=== PATIENT | female | born 1955 | race Caucasian/White ===

== ENCOUNTER 2022-11-28 12:54 | Outpatient (RCR) | payer MEDICARE, BC, SELFPAY | END 2022-12-19 16:55 | disposition home or self-care (01) | LOC: PT 12:54 | PROVIDERS: PCP Family Medicine | DX: Z98.890 Other specified postprocedural states (principal) | CPT/HCPCS: 97110; 97140; 97162 ==

== ENCOUNTER 2023-01-02 08:44 | Outpatient (OUT) | payer MEDICARE, BC, SELFPAY ==
--- NOTE | 2023-01-02 08:56 | XR_ITS ---
The [address] [address] Patient Name: RAHUL AGUILERA MRN: [id number] date: 1955 Sex: F Assigned Patient Location: [facility] Current Patient Location: [facility] Accession/Order Number: [id number] Exam Date: 01/02/2023 09:00 Report Date: 01/02/2023 09:53 At the request of: SHIRA DUONG Procedure: XR abdomen 1V EXAM: XR abdomen 1V HISTORY: Kidney Stones N20.0 COMPARISON: None. TECHNIQUE: AP view of the abdomen. FINDINGS: Nonobstructive bowel gas pattern is noted. There is a 3 mm calculus over the inferior aspect of the right kidney. The osseous structures are intact. XR/XR abdomen 1V IMPRESSION: Nonobstructive bowel gas pattern. Probable right nephrolithiasis. Electronically authenticated by: RENU LANIER Date: 01/02/2023 09:53
== END 2023-01-02 08:45 | disposition home or self-care (01) ==
LOC: RAD 08:48
PROVIDERS: PCP Family Medicine; Visit Provider Physician Assistant
DX: N20.0 Calculus of kidney (principal)
CPT/HCPCS: 74018

== ENCOUNTER 2023-03-11 12:51 | Outpatient (RCR) | payer MEDICARE, BC, SELFPAY | END 2023-04-02 15:52 | disposition home or self-care (01) | LOC: PT 12:51 | PROVIDERS: PCP Family Medicine; Visit Provider Physician Assistant | DX: M75.101 Unspecified rotator cuff tear or rupture of right shoulder, not specified as traumatic (principal); M75.21 Bicipital tendinitis, right shoulder; M25.511 Pain in right shoulder | CPT/HCPCS: 97110; 97140; 97162 ==

== ENCOUNTER 2023-04-07 08:29 | Outpatient (OUT) | payer MEDICARE, BC, SELFPAY ==
--- NOTE | 2023-04-07 08:35 | XR_ITS ---
The [address] [address] Patient Name: RAHUL AGUILERA MRN: [id number] date: 1955 Sex: F Assigned Patient Location: [facility] Current Patient Location: [facility] Accession/Order Number: [id number] Exam Date: 04/07/2023 08:40 Report Date: 04/07/2023 09:29 At the request of: SHIRA DUONG Procedure: XR abdomen 1V EXAMINATION: XR abdomen 1V HISTORY: Kidney Stone N20.0 COMPARISON: No relevant comparison available. FINDINGS: KIDNEY/URETER - RIGHT: No visible renal or ureteral calcifications. KIDNEY/URETER - LEFT: 7 mm calcification projects over the left L2 transverse process PELVIS: No visible ureteral calcifications. Any visible calcifications favor phleboliths. BOWEL: No abnormal dilation or deviation. BONES: No acute abnormality. Right hip arthroplasty. Moderate degenerative changes of the spine OTHER: Negative. No abnormal gaseous collections. XR/XR abdomen 1V IMPRESSION: Suspected left ureteropelvic junction or proximal ureteral 7 mm calcification Electronically authenticated by: ROMA BOUDREAUX Date: 04/07/2023 09:29
--- OUTSIDE RECORDS SUMMARY | 2023-04-07 08:41 | XMS_ITS | CCD ---
Author Name Unknown Address [address] [facility] [address] [place] [address] Organization [facility] Care Team Providers Care Search Engine Marketing Specialist Name Role Phone Roma Pritchard Unavailable Megan Asencio Unavailable Tanna Wilson Unavailable DO Roma Pritchard Primary Care Provider DO Roma Pritchard Attending Provider DO Roma Pritchard Primary Care Provider DO Roma Pritchard Attending Provider MD Orlando Vicente Attending Provider LEORA Wilson Attending Provider MD Ar Herman II Attending Provider Ar Herman II Unavailable FRANCHESKA, DR BRANDON Primary Care Unavailable RABIA LICONA Admitting Unavailable FORREST, DR PAIGE Carmichael Consulting Unavailable RABIA LICONA Attending Unavailable RABIA LICONA Consulting Unavailable FRANCHESKA, DR BRANDON Primary Care Unavailable RABIA LICONA Admitting Unavailable ZISISSY, DR PAIGE Carmichael Consulting Unavailable RABIA LICONA Attending Unavailable RABIA LICONA Consulting Unavailable FRANCHESKA, DR BRANDON Primary Care Unavailable RABIA LICONA Attending Unavailable RABIA LICONA Admitting Unavailable FORREST, DR PAIGE Carmichael Consulting Unavailable RABIA LICONA Consulting Unavailable FRANCHESKA, DR BRANDON Attending Unavailable FRANCHESKA, DR BRANDON Admitting Unavailable FRANCHESKA, DR BRANDON Primary Care Unavailable FRANCHESKA, DR BRANDON Primary Care Unavailable RABIA LICONA Admitting Unavailable RABIA LICONA Attending Unavailable FRANCHESKA, DR BRANDON Primary Care Unavailable FRANCHESKA, DR BRANDON Consulting Unavailable FRANCHESKA, DR BRANDON Attending Unavailable GIRVIN, DR BRANDON Admitting Unavailable ZIEBER, DR PAIGE Carmichael Consulting Unavailable GIRVIN, DR BRANDON Consulting Unavailable GIRVIN, DR BRANDON Admitting Unavailable GIRVIN, DR BRANDON Attending Unavailable GIRVIN, DR BRANDON Primary Care Unavailable ZIEBER, DR PAIGE Carmichael Consulting Unavailable GIRVIN, DR BRANDON Consulting Unavailable GIRVIN, DR BRANDON Attending Unavailable GIRVIN, DR BRANDON Admitting Unavailable GIRVIN, DR BRANDON Primary Care Unavailable ZIEBER, DR PAIGE Carmichael Consulting Unavailable WEST, DR BRANDON V Consulting Unavailable MARIANA DUONG Attending Unavailable GIRCARMEN, DR BRANDON Primary Care Unavailable AD, MARIANA Admitting Unavailable ADMARIANA ANDRADE Consulting Unavailable DO Roma Pritchard Primary Care Provider DO Roma Pritchard Attending Provider [phone] MD Ar Herman II Attending Provider DO Roma Pritchard Primary Care Provider DO Roma Pritchard Attending Provider Roma Pritchard Primary Care Physician MARIANA DUONG Attending Unavailable MARIANA DUONG Attending Unavailable DO Roma Pritchard Primary Care Provider [phone] MD Ar Herman II Attending Provider DO Roma Pritchard Attending Provider Self, Referral Attending Provider Unavailable BLAYNE MORALES Attending Unavailable Colby Shaffer Unavailable DO Roma Pritchard Primary Care Provider MD Ar Herman II Attending Provider [phone] DO Colby Shaffer Attending Provider LEORA Wilson Attending Provider [phone] DO Roma Pritchard Primary Care Provider Roma Pritchard Primary Care Unavailable Roma Pritchard Attending Unavailable Roma Pritchard Admitting Unavailable Roma Pritchard Primary Care Unavailable Ar Herman II Attending Unavailonel Herman II, Ar Venegas Admitting Unavailonel Herman II, Ar Venegas Attending Unavailabl e Roma Pritchard Primary Care Unavailable Ar Herman II Admitting Unavailabl e Ar Herman II Admitting Unavailonel Herman II, Ar Venegas Attending Unavailonel e Roma Pritchard Primary Care Unavailable Roma Pritchard Primary Care Unavailable Roma Pritchard Attending Unavailable Roma Pritchard Admitting Unavailable Ar Herman II Attending Unavailonel Herman II, Ar Venegas Admitting UnavailRoma Dominguez Primary Care Unavailable Roma Pritchard Primary Care Unavailable Self, Referral Admitting Unavailable Self, Referral Attending Unavailable Roma Pritchard Primary Care Unavailable Colby Shaffer Admitting Unavailable Colby Shaffer Attending Unavailable Roma Pritchard Primary Care Unavailable Tanna Wilson Admitting Unavailable Tanna Wilson Attending Unavailable Roma Pritchard Primary Care Unavailable Francheska, Roma Attending Unavailable Roma Pritchard Admitting Unavailable Medications Current Medications Medication Drug Class(es) Dates Sig (Normalized) Sig (Original) ALPRAZolam 0.5 mg oral tablet (20 sources) Benzodiazepine Start: 06-26-2022 take 1 tablet by mouth every twelve hours Xanax 0.5 MG 1 tablet Orally Twice a day June, Active Start: 01-24-2020 Xanax Oral, As Directed, Refills(s) 0 Start Date: 01/24/20 Status: Ordered Start: 12-25-2019 take 0.5 mg by mouth every six hours Alprazolam Active 0.5 MG PO Q6H December 24, 2019 11:00pm Start: 12-04-2017 take 1 tablet by corey th every twelve hours Xanax 0.5 MG 1 tablet Orally Twice a day Nov, Active Ascorbic Acid (20 sources) Vitamin C Start: 01-06-2023 Vitamin C Angie y Start Date: 01/06/23 Status: Ordered Start: 06-27-2019 Vitamin C 500 MG 1 tablet Orally Thu-ThuJune, Active Start: 06-27-2019 take 1 tablet by corey th every other day Vitamin C 500 MG 1 tablet Orally every other day June, Active atorvastatin 20 mg oral tablet (20 sources) HMG-CoA Reductase Inhibitor Start: 12-25-2019 take 20 mg by mouth at bedtime Atorvastatin Active 20 MG PO Bedtime December 24, 2019 11:00pm 12 hr buPROPion hydrochloride 100 mg extended release oral tablet (20 sources) Aminoketone Start: 12-31-2022 take 1 tablet by mouth every twenty-four hours Wellbutrin SR 100 MG 1 tablet in the morning Orally Once a day Dec, Active Start: 12-27-2019 take 150 mg by mouth once daily in the morning Bupropion Hcl Active 150 MG PO Every morning December 27, 2019 12:00am Start: 12-25-2019 End: 12-27-2019 take 300 mg by mouth once daily Bupropion Hcl Disconti nued 300 MG PO Daily December 24, 2019 11:00pm December 27, 2019 9:40am Calcium + D3 600-800 MG-UNIT (1 source) take 600-800 tablets by mouth once daily Calcium + D3 600-800 MG-UNIT 1 tablet with a meal Orally Once a day Active calcium carbonate 1500 mg / cholecalciferol 800 unt oral tablet (15 sources) Vitamin D take 1 tablet by mouth every twenty-four hours Caltrate 600+D3 600-800 MG-UNIT 1 tablet with a meal Orally Once a day Active take 600-800 tablets by mouth on ce daily Caltrate 600+D3 600-800 MG-UNIT 1 tablet with a meal Orally Once a day Active Calcium Carbonate-Vit D3-Min (7 sources) Start: 10-17-2022 take 1 tablet by mouth once daily in the evening Calcium Carbonate-Vit D3-Min Active 1 TAB PO Every evening October 16, 2022 11:00pm Start: 10-17-2022 take 1 tablet by corey th once daily in the evening Calcium Carbonate-Vit D3-Min Active 1 TAB PO Every evening October 17, 2022 12:00am Calcium Citrate / Vitamin D (1 source) Start: 01-06-2023 calcium-vitami n D Daily Start Date: 01/06/23 Status: Ordered cholecalciferol 0.05 mg oral capsule (17 sources) Vitamin D Start: 10-17-2022 take 1 capsule by mouth twice daily Cholecalciferol (Vitamin D3) (Vitamin D3) 50 mcg (2,000 unit) Capsule Active 50 MCG PO Twice daily October 16, 2022 11:00pm Start: 09-18-2022 Cholecalcifero l 25 MCG (1000 UT) as directed Orally Once a day 5k daily Aug, Not-Taking Start: 09-18-2022 Cholecalcifero l 25 MCG (1000 UT) as directed Orally Once a day 5k daily Aug, Active Start: 09-18-2022 take 5 capsules by m out once daily Cholecalciferol 25 MCG (1000 UT) 5 capsules Orally Once a day for 30 days 5k daily Aug, Active take 2 capsules by m outh once daily, then take 1 capsule by mouth once daily Vitamin D 50 MCG (2000 UT) 2 capsules qd in the winter Orally and take 1 capsule qd in the summer Active CPAP Machine (20 sources) CPAP Machine Act rebecca esomeprazole 40 mg delayed release oral capsule (20 sources) Proton Pump Inhibitor Start: 12-25-2019 take 40 mg by mouth once daily Esomeprazole Magnesium Active 40 MG PO Daily December 24, 2019 11:00pm take 1 capsule by mo uth once daily as needed NexIUM 40 1 capsule Orally Once a day Not-Taking/PRN take 1 capsule by mouth once madeleine ly NexIUM 40 1 capsule Orally Once a day Not-Taking take 1 capsule by mouth once madeleine ly NexIUM 40 1 capsule Orally Once a day Active take 1 capsule by mouth once madeleine ly NexIUM 40 1 capsule Orally Once a day for 90 days Active take 1 capsule by mo ut every other day NexIUM 40 1 capsule Orally qod for 90 da ys Active take 1 capsule by mo ut every other day NexIUM 40 1 capsule Orally qod Active take 1 capsule by mo ut every other day NexIUM 40 1 capsule Orally qod Not-Takin g ferrous sulfate 324 mg delayed release oral tablet (20 sources) Start: 10-17-2022 take 324 mg by mouth five times weekly Ferrous Sulfate Active 324 MG PO Daily October 16, 2022 11:00pm takes 5 days per week Start: 09-18-2022 take 1 tablet by corey every other day Iron 325 (65 Fe) MG 1 tablet Orally qod Aug, Active Start: 09-18-2022 take 1 tablet by corey every eight hours Iron 325 (65 Fe) MG 1 tablet Orally Three Times a Day Aug, Not-Taking Start: 05-31-2019 Ferrous Sulfat e 325 (65 Fe) MG 1 tablet Orally five days a week May, Active Start: 05-31-2019 Ferrous Sulfat e 325 (65 Fe) MG 1 tablet Orally five days a week May, Active Start: 05-31-2019 take 1 tablet by corey every other day Ferrous Sulfate 325 (65 Fe) MG 1 tablet Orally every other day May, Active Start: 05-31-2019 take 1 tablet by corey th every twenty-four hours Ferrous Sulfate 325 (65 Fe) MG 1 tablet Orally Once a day May, Active Start: 05-31-2019 take 1 tablet by mouth once da rica Ferrous Sulfate 325 (65 Fe) MG 1 tablet Orally Once a day May, Active hydroCHLOROthiazide 25 mg oral tablet (20 sources) Thiazide Diuretic Start: 12-25-2019 take 25 mg by mouth once daily Hydrochlorothiazide Active 25 MG PO Daily December 24, 2019 11:00pm Iron Chews (1 source) Start: 01-06-2023 take 1 mg by mouth once daily Iron Chews mg, Oral, Daily Start Date: 01/06/23 Status: Ordered losartan potassium 100 mg oral tablet (20 sources) Angiotensin 2 Receptor Berry Start: 12-25-2019 take 100 mg by mouth once daily in the morning Losartan Active 100 MG PO Every morning December 24, 2019 11:00pm metroNIDAZOLE 7.5 mg/ml topical lotion (7 sources) Nitroimidazole Antimicrobial Start: 10-17-2022 Metronidazole Active 1 APPLIC TOPICAL Daily October 16, 2022 11:00pm Miacalcin 200 UNIT/ACT (20 sources) Start: 02-20-2017 Miacalcin 200 UNIT/ACT 1 spray in one nostril Nasally qd alternating nostrils quantity sufficient for 90 days Jan, Active Start: 02-20-2017 Miacalcin 200 UNIT/ACT 1 spray in one nostril Nasally qd alternating nostrils for 90 days quantity sufficient for 90 days Jan, Active Start: 02-20-2017 Miacalcin 200 UNIT/ACT 1 spray in one nostril Nasally qd alternating nostrils Jan, Active Start: 02-20-2017 Start: 02-20-2017 Miacalcin 200 UNIT/ACT 1 spray in one nostril Nasally qd alternating nostrils for 30 day(s) Jan, Active Miacalcin 200 UN IT/ACT 1 spray in one nostril Nasally qd alternating nostrils for 90 days Not-Taking/PRN Miacalcin 200 UN IT/ACT 1 spray in one nostril Nasally qd alternating nostrils for 90 days Not-Taking Miacalcin 200 UN IT/ACT 1 spray in one nostril Nasally qd alternating nostrils for 90 days Active Multivitamin preparation (3 sources) Multivitamin Act rebecca omeprazole 20 mg delayed release oral capsule (5 sources) Proton Pump Inhibitor Start: 11-04-2022 take 20 mg by mouth once daily Omeprazole Active 20 MG PO Daily November 03, 2022 11:00pm 24 hr oxybutynin chloride 5 mg extended release oral tablet (20 sources) Cholinergic Muscarinic Antagonist Start: 05-21-2020 take 1 mg by mouth once daily oxybutynin 5 mg ER Tab mg tab(s), Oral, Daily, Refills(s) 0 Start Date: 01/02/22 Status: Ordered Start: 05-21-2020 take 1 tablet by corey th once daily Ditropan XL 5 MG 1 tablet Orally Once a day Apr, Not-Taking salmon calcitonin 200 unt/actuat nasal spray (20 sources) Calcitonin Start: 10-17-2022 Calcitonin ([place]) (Miacalcin) 200 unit/actuation [place],Non-Aerosol Active 1 SPRAY INTRANASAL (ALT) Daily October 16, 2022 11:00pm Calcitonin ([place]) 200/ACT USE 1 SPRAY IN ONE NOSTRIL DAILY (ALTERNATING NOSTRILS) for 90 Not-Taking/PRN Calcitonin ([place]) 200/ACT USE 1 SPRAY IN ONE NOSTRIL DAILY (ALTERNATING NOSTRILS) for 90 Not-Taking Calcitonin ([place]) 200/ACT USE 1 SPRAY IN ONE NOSTRIL DAILY (ALTERNATING NOSTRILS) for 90 Active Turmeric extract (15 sources) Start: 01-06-2023 Turmeric Oral, Daily Start Date: 01/06/23 Status: Ordered Turmeric Active vitamin B12 (5 sources) Vitamin B12 Start: 01-06-[address] art Date: 01/06/23 Status: Ordered Start: 05-31-2019 Vitamin B12 10 00 MCG 1 tablet Orally Thursday - May, Active Vitamin B12 1000 MCG (20 sources) Start: 05-31-2019 Vitamin B12 10 00 MCG 1 tablet Orally Thursday - May, Active Start: 05-31-2019 Start: 05-31-2019 Vitamin B12 10 00 MCG 1 tablet Orally 5 days a week May, Active Vitamin D (1 source) Start: 01-06-2023 Vitamin D Inte rnational_Unit, Oral, BID Start Date: 01/06/23 Status: Ordered Vitamin D 4000 Unit (20 sources) take 1 capsule by mouth once daily take 1 capsule by mouth once madeleine ly Vitamin D 4000 Unit 1 capsule Orally qd Active Completed/Discontinued Medications Medication Drug Class(es) Dates Sig (Normalized) Sig (Original) acetaminophen 500 mg oral tablet (6 sources) Start: 10-23-2022 take 2 tablets by mouth every eight hours for pain Acetaminophen 500 MG 2 tablets for pain Orally every 8 hrs for 30 days Med to Bed Upon Discharge DOS: 11/04/2022 Sep, Not-Taking amoxicillin 500 mg oral capsule (13 sources) Penicillin-class Antibacterial Start: 12-17-2022 Amoxicillin 500 MG 2 grams 1hr before dental procedure Orally as directed for 1 Nov, Not-Taking/PRN Start: 09-17-2021 take 1 tablet by corey th every twelve hours Amoxicillin 875 MG 1 tablet Orally Twice a day for 14 days Aug, Not-Taking aspirin 81 mg delayed release oral tablet (6 sources) Platelet Aggregation Inhibitor, Nonsteroidal Anti-inflammatory Drug Start: 10-23-2022 take 1 tablet by mouth every twelve hours Aspirin 81 81 MG 1 tablet Orally Twice a day for 35 days Med to Bed Upon Discharge DOS: 11/04/2022 Sep, Not-Taking Start: 10-23-2022 take 1 tablet by corey th twice daily Aspirin 81 81 MG 1 tablet Orally Twice a day for 35 days Med to Bed Upon Discharge DOS: 11/04/2022 Sep, Not-Taking Caltrate 600+D3 600-800 MG-UNIT (15 sources) take 600-800 tablets by mouth once daily Caltrate 600+D3 600-800 MG-UNIT 1 tablet with a meal Orally Once a day Not-Taking take 600-800 tablets by mouth on ce daily Caltrate 600+D3 600-800 MG-UNIT 1 tablet with a meal Orally Once a day Active cefadroxil 500 mg oral capsule (6 sources) Cephalosporin Antibacterial Start: 10-23-2022 take 1 capsule by mouth every twelve hours Cefadroxil 500 MG 1 tablet Orally every 12 hrs for 7 days Med to Bed Upon Discharge DOS: 11/04/2022 Sep, Not-Taking cefdinir 300 mg oral capsule (12 sources) Cephalosporin Antibacterial Start: 12-27-2019 End: 10-17-2022 take 300 mg by mouth twice daily Cefdinir Discontinued 300 MG PO Twice daily 07 26December 27, 2019 12:00am October 17, 2022 10:18am celecoxib 200 mg oral capsule (20 sources) Nonsteroidal Anti-inflammatory Drug Start: 01-24-2020 take 1 capsule by mouth every twelve hours Celecoxib 200 MG 1 capsule with food Orally Twice a day for 30 days Med to Bed Upon Discharge DOS: 11/04/2022 Sep, Not-Taking Start: 06-27-2019 take 200 mg by mouth once daily before lunch Celecoxib Active 200 MG PO Daily before lunch December 24, 2019 11:00pm Co-Enzyme Q-10 100 mg (20 sources) Start: 05-15-2014 take 1 capsule by mouth once daily Co-Enzyme Q-10 100 mg 1 capsule with a meal Orally Once a day Apr, Not-Taking Start: 05-15-2014 Start: 05-15-2014 take 1 capsule by mouth once d aily Co-Enzyme Q-10 100 mg 1 capsule with a meal Orally Once a day Apr, Active docusate sodium 50 mg / sennosides, assisted 8.6 mg oral tablet (6 sources) Start: 10-23-2022 take 2 tablets by mouth every twenty-four hours Senokot S 8.6-50 MG 2 tablets Orally Once a day for 30 days Med to Bed Upon Discharge DOS: 11/04/2022 Sep, Not-Taking meloxicam 15 mg oral tablet (4 sources) Nonsteroidal Anti-inflammatory Drug Start: 03-04-2023 take 1 tablet by mouth every twenty-four hours Meloxicam 15 MG 1 tablet Orally Once a day for 30 days prn Feb, Not-Taking/PRN morphine sulfate 15 mg extended release oral tablet (6 sources) Opioid Agonist Start: 10-23-2022 take 1 tablet by mouth every twelve hours for pain Morphine Sulfate ER 15 MG 1 tablet for breakthrough pain only Orally every 12 hrs for 5 days Med to Bed Upon Discharge DOS: 11/04/2022 Sep, Not-Taking ondansetron 8 mg oral tablet (6 sources) Serotonin-3 Receptor Antagonist Start: 10-23-2022 take 1 tablet by mouth three times daily as needed for nausea Ondansetron HCl 8 MG 1 tablet as needed for nausea Orally Three times a day for 10 days Med to Bed Upon Discharge DOS: 11/04/2022 Sep, Not-Taking oxyCODONE hydrochloride 5 mg oral tablet (6 sources) Opioid Agonist Start: 10-23-2022 take 1 tablet by mouth every four hours as needed for pain oxyCODONE HCl 5 MG 1 tablet as needed for pain Orally every 4 hrs for 10 days Med to Bed Upon Discharge DOS: 11/04/2022 Sep, Not-Taking pantoprazole 20 mg delayed release oral tablet (6 sources) Proton Pump Inhibitor Start: 10-23-2022 take 1 tablet by mouth every twenty-four hours Protonix 20 MG 1 tablet Orally Once a day for 35 days Med to Bed Upon Discharge DOS: 11/04/2022 Sep, Not-Taking polyethylene glycol 3350 85100 mg powder for oral solution (6 sources) Osmotic Laxative Start: 10-23-2022 MiraLax 17 GM 1 packet mixed with 8 ounces of fluid Orally Once a day for 7 days Med to Bed Upon Discharge DOS: 11/04/2022 Sep, Not-Taking tiZANidine 4 mg oral tablet (15 sources) Central alpha-2 Adrenergic Agonist Start: 12-25-2019 End: 10-17-2022 take 4 mg by mouth every six hours Tizanidine Discontinued 4 MG PO Q6H December 24, 2019 11:00pm October 17, 2022 10:18am Start: 05-31-2019 traMADol hydrochloride 50 mg oral tablet (6 sources) Opioid Agonist Start: 10-23-2022 take 1 tablet by mouth every six hours as needed for pain traMADol HCl 50 MG 1 tablet as needed for pain Orally every 6 hrs for 10 days Med to Bed Upon Discharge DOS: 11/04/2022 Sep, Not-Taking triamcinolone acetonide 40 mg/ml injectable suspension (20 sources) Corticosteroid Start: 03-03-2023 Kenalog-40 Feb, 40 mg Start: 03-05-2022 Kenalog-40 Feb, 120 mg Start: 04-19-2021 Kenalog -40 mg Mar, 20 mg Start: 07-11-2020 Kenalog -40 mg June, 20 mg Start: 01-12-2019 Kenalog -40 mg Dec, 40 mg valACYclovir 1000 mg oral tablet (20 sources) Herpesvirus Nucleoside Analog DNA Polymerase Inhibitor, Herpes Simplex Virus Nucleoside Analog DNA Polymerase Inhibitor, Herpes Zoster Virus Nucleoside Analog DNA Polymerase Inhibitor Start: 12-25-2019 End: 12-25-2019 Valacyclovir Discontinued TABLET December 24, 2019 11:00pm December 25, 2019 7:08pm valACYclovir HCl 1 GM TAKE 2 TABLETS BY MOUTH AT ONSET OF SYMPTOMS, THEN TAKE 2 TABLETS TWELVE HOURS LATER. for 1 prn Not-Taking/PRN valACYclovir HCl 1 GM TAKE 2 TABLETS BY MOUTH AT ONSET OF SYMPTOMS, THEN TAKE 2 TABLETS TWELVE HOURS LATER. for 1 prn Active Vitamin C 500 MG (9 sources) Start: 09-18-2022 take 1 capsule by mo ut once daily Vitamin C 500 MG 1 capsule Orally Once a day Aug, Not-Taking Start: 09-18-2022 take 1 capsule by mouth once d aily Vitamin C 500 MG 1 capsule Orally Once a day Aug, Active Start: 09-18-2022 take 1 capsule by mouth once d aily Vitamin C 500 MG 1 capsule Orally Once a day for 30 days Aug, Active Problems Active Problems Problem Classification Problem Date Documented Da te Episodic/Chronic Abdominal pain (20 sources) Unspecified abdominal pain; Translations: [Right flank pain] Onset: 1 Resolved: 1 Episodic Anxiety disorders (20 sources) Anxiety; Translations: [Anxiety disorder, unspecified] Onset: 1 Resolved: 2 Chronic Calculus of urinary tract (20 sources) Kidney stone; Translations: [Calculus of kidney] Onset: 1 Resolved: 1 Episodic Deficiency and other anemia (6 sources) Anemia, unspecified; Translations: [Anemia D64.9] Onset: 1 Resolved: 2 Episodic Diabetes mellitus without complication (4 sources) Hyperglycemia, unspecified Onset: 2 Resolved: 2 Episodic Disorders of lipid metabolism (20 sources) Hyperlipidemia; Translations: [Hyperlipidemia, unspecified] Onset: 2 Resolved: 2 Chronic Esophageal disorders (20 sources) Gastroesophageal reflux disease; Translations: [Gastro-esophageal reflux disease without esophagitis] Onset: 2 Resolved: 2 Chronic Essential hypertension (20 sources) Hypertensive disorder; Translations: [Essential (primary) hypertension] Onset: 2 Resolved: 2 Chronic Menopausal disorders (20 sources) Menopausal flushing; Translations: [Menopausal and female climacteric states] Chronic Nonspecific chest pain (1 source) Chest pain, unspecified Episodic Nutritional deficiencies (20 sources) Vitamin D deficiency; Translations: [Vitamin D deficiency, unspecified] Onset: 2 Resolved: 2 Chronic Nutritional deficiencies (7 sources) Deficiency of other specified B group vitamins; Translations: [Vitamin B12 deficiency E53.8] Onset: 1 Resolved: 2 Episodic Osteoarthritis (20 sources) Arthritis; Translations: [Unspecified osteoarthritis, unspecified site] Onset: 1 Resolved: 2 Chronic Osteoporosis (18 sources) Osteoporosis; Translations: [Other osteoporosis without current pathological fracture] Onset: 3 Chronic Other aftercare (9 sources) Patient encounter status; Translations: [Aftercare following joint replacement surgery] Chronic Other aftercare (2 sources) Aftercare following joint replacement surgery Chronic Other aftercare (5 sources) 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y; Translations: [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y] Onset: 2 Resolved: 2 Episodic Other connective tissue disease (9 sources) Hip joint prosthesis present; Translations: [Presence of right artificial hip joint] Chronic Other connective tissue disease (9 sources) History of total hip arthroplasty; Translations: [Presence of right artificial hip joint] Chronic Other connective tissue disease (6 sources) Presence of right artificial hip joint; Translations: [Presence of right artificial hip joint] Onset: 3 Chronic Other connective tissue disease (7 sources) Pain in right foot; Translations: [PAIN IN RIGHT FOOT] Onset: 2 Resolved: 2 Episodic Other connective tissue disease (4 sources) Right rotator cuff syndrome; Translations: [Unspecified rotator cuff tear or rupture of right shoulder, not specified as traumatic] Episodic Other connective tissue disease (2 sources) Unspecified rotator cuff tear or rupture of right shoulder, not specified as traumatic Episodic Other connective tissue disease (1 source) Bicipital tendinitis, right shoulder Episodic Other connective tissue disease (1 source) Cramp and spasm Episodic Other diseases of bladder and urethra (20 sources) Overactive bladder; Translations: [Other specified disorders of bladder] Chronic Other diseases of kidney and ureters (5 sources) Hydronephrosis; Translations: [Hydronephrosis with renal and ureteral calculous obstruction] 12-25-2019 Episodic Other diseases of kidney and ureters (7 sources) Hydronephrosis with renal and ureteral calculous obstruction; Translations: [Hydronephrosis with urinary obstruction due to ureteral calculus] 12-25-2019 Episodic Other gastrointestinal disorders (20 sources) Constipation; Translations: [Constipation, unspecified] Episodic Other gastrointestinal disorders (20 sources) Dysphagia; Translations: [Dysphagia, unspecified] Episodic Other gastrointestinal disorders (6 sources) Dysphagia, unspecified; Translations: [DYSPHAGIA UNSPECIFIED] Onset: 3 Episodic Other liver diseases (20 sources) Steatosis of liver; Translations: [Fatty (change of) liver, not elsewhere classified] Chronic Other liver diseases (1 source) Fatty (change of) liver, not elsewhere classified Onset: 2 Resolved: 2 Chronic Other lower respiratory disease (20 sources) Multiple nodules of lung; Translations: [Other nonspecific abnormal finding of lung field] Episodic Other lower respiratory disease (4 sources) Other nonspecific abnormal finding of lung field Episodic Other non-traumatic joint disorders (2 sources) Pain in right hip Onset: 2 Resolved: 2 Episodic Other non-traumatic joint disorders (5 sources) Pain in unspecified hip; Translations: [PAIN IN UNSPECIFIED HIP] Onset: 3 Episodic Other non-traumatic joint disorders (2 sources) Pain in right shoulder Episodic Other nutritional; endocrine; and metabolic disorders (20 sources) Weight decreased; Translations: [Abnormal weight loss] Episodic Other nutritional; endocrine; and metabolic disorders (4 sources) Abnormal weight loss; Translations: [Weight loss R63.4] Onset: 1 Resolved: 2 Episodic Other nutritional; endocrine; and metabolic disorders (1 source) Body mass index (BMI) 26.0-26.9, adult Episodic Other screening for suspected conditions (not mental disorders or infectious disease) (2 sources) Encounter for screening for osteoporosis; Translations: [Abnormal findings on diagnostic imaging of other parts of musculoskeletal system] Episodic Residual codes; unclassified (20 sources) Hypoxia; 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 Residual codes; unclassified (20 sources) Obstructive sleep apnea syndrome; Translations: [Obstructive sleep apnea (adult) (pediatric)] Chronic Residual codes; unclassified (3 sources) Obstructive sleep apnea (adult) (pediatric) Onset: 2 Resolved: 2 Chronic Residual codes; unclassified (2 sources) Sleep apnea, unspecified Onset: 2 Resolved: 2 Chronic Residual codes; unclassified (1 source) Obstructive sleep apnea (adult)(pediatric); Translations: [Obstructive sleep apnea (adult) (pediatric)] Onset: 4 Chronic Residual codes; unclassified (20 sources) Amnesia; Translations: [Other amnesia] Episodic Spondylosis; intervertebral disc disorders; other back problems (7 sources) Cervicalgia; Translations: [CERVICALGIA] Onset: 3 Episodic Sprains and strains (1 source) Strain of muscle, fascia and tendon of lower back, initial encounter Episodic Thyroid disorders (20 sources) Thyroid nodule; Translations: [Nontoxic single thyroid nodule] Chronic Unclassified (1 source) Pain in right shoulder; Translations: [Pain in right shoulder] Onset: 4 Unclassified (1 source) Encounter for screening mammogram for malignant neoplasm of breast; Translations: [Encounter for screening mammogram for malignant neoplasm of breast] Onset: 3 Unclassified (1 source) Aftercare following joint replacement surgery; Translations: [Aftercare following joint replacement surgery] Onset: 3 Unclassified (1 source) Encounter for preprocedural laboratory examination; Translations: [Encounter for preprocedural laboratory examination] Onset: 3 Unclassified (1 source) Unilateral primary osteoarthritis, right hip; Translations: [Unilateral primary osteoarthritis, right hip] Onset: 3 Past or Other Problems Problem Classification Problem Date Documented Da te Episodic/Chronic Crushing injury or internal injury (4 sources) Crushing injury of right foot, subsequent encounter; Translations: [CRUSHING INJURY RIGHT FOOT SUBSQT] Onset: 10-29-2021 Episodic Fracture of lower limb (10 sources) Displaced fracture of second metatarsal bone, right foot, subsequent encounter for fracture with routine healing; Translations: [Nondisplaced fracture of second metatarsal bone, right foot, initial encounter for closed fracture] Onset: 08-09-2021 Episodic Genitourinary symptoms and ill-defined conditions (2 sources) Hematuria, unspecified; Translations: [Nocturia] Onset: 12-18-2020 Resolved: 03-22-2021 Episodic Headache; including migraine (1 source) Headache; including migraine Other bone disease and musculoskeletal deformities (3 sources) Other specified disorders of bone density and structure, unspecified site Onset: 03-22-2021 Resolved: 06-26-2021 Episodic Other connective tissue disease (1 source) Trigger finger, right ring finger Onset: 04-19-2021 Resolved: 04-19-2021 Episodic Other connective tissue disease (1 source) Pain in right hand Onset: 04-19-2021 Resolved: 04-19-2021 Episodic Other gastrointestinal disorders (1 source) Constipation, unspecified Onset: 12-28-2020 Resolved: 12-28-2020 Episodic Other injuries and conditions due to external causes (1 source) Other injury of unspecified body region, initial encounter Onset: 10-02-2021 Resolved: 10-02-2021 Episodic Results Test Name Value Interpretation Reference Range Facility A1C with Estimated Average Xavier sanchez 03-25-2023 Glucose [Mass/Vol] 114 mg/dL Normal [facility] Comment on above: Result Comment: PERF ORMED BY: [place] [address] PATHOLOGIST OIL [employer] UNIT OPERATOR CIRA GRAHAM M.D. Performed By: #### A 1C [facility] eA #### [place] [address] [place] #### NICOTINE #### [facility] , HbA1c (Bld) [Mass fraction] 5.6 % Normal 4.3-5.6 [facility] Comment on above: Result Comment: Incr eased risk for diabetes: 5.7 - 6.4 diabetes: >6.4 glycemic control for adults with diabetes: <7.0 Performed By: #### A 1C WTH #### [facility] [address] #### NICOTINE #### [facility] , Alanine aminotransferase [En zymatic activity/volume] in Serum or PlasmaOrdered By: Roma Pritchard on 03-25-2023 ALT [Catalytic activity/Vol] 17 U/L 7-52 [facility] Albumin [Mass/volume] in Ser um or Plasma by Bromocresol green (BCG) dye binding methoOrdered By: Roma Pritchard on 03-25-2023 Albumin BCG dye [Mass/Vol] 4.3 g/dL 3.5-5.7 [facility] Alkaline phosphatase [Enzyma tic activity/volume] in Serum or PlasmaOrdered By: Roma Pritchard on 03-25-2023 ALP [Catalytic activity/Vol] 74 U/L 34-104 [facility] Aspartate aminotransferase [ Enzymatic activity/volume] in Serum or PlasmaOrdered By: Roma Pritchard on 03-25-2023 AST [Catalytic activity/Vol] 16 U/L 13-39 [facility] Basophils Auto (Bld) [#/Vol] Ordered By: Roma Pritchard on 03-25-2023 Basophils (Bld) [#/Vol] 0.0 10*3/uL 0.0-0.2 [facility] Basophils/100 WBC Auto (Bld) Ordered By: Roma Pritchard on 03-25-2023 Basophils/100 WBC (Bld) 0.7 % . [facility] Bilirubin.total [Mass/volume ] in Serum or PlasmaOrdered By: Roma Pritchard on 03-25-2023 Bilirubin [Mass/Vol] 0.6 mg/dL 0.3-1.0 [facility] Calcium [Mass/volume] in Ser um or PlasmaOrdered By: Roma Pritchard on 03-25-2023 Calcium [Mass/Vol] 9.8 mg/dL 8.6-10.3 [facility] Carbon dioxide, total [Moles /volume] in Serum or PlasmaOrdered By: Roma Pritchard on 03-25-2023 CO2 [Moles/Vol] 33.1 mmol/L 21.0-31.0 [facility] Chloride [Moles/volume] in S bran or PlasmaOrdered By: Roma Pritchard on 03-25-2023 Chloride [Moles/Vol] 103 mmol/L 98-107 [facility] Cholesterol [Mass/volume] in Serum or PlasmaOrdered By: Roma Pritchard on 03-25-2023 Cholesterol [Mass/Vol] 162 mg/dL 140-200 [facility] Comment on above: Chol less than 200 m g/dl low riskChol 201-239 mg/dl borderline riskChol 240 mg/dl and greater high risk Cholesterol in LDL Calc [Mas s/Vol]Ordered By: Roma Pritchard on 03-25-2023 Cholesterol in LDL [Mass/Vol] 60 mg/dL 0-100 [facility] Comment on above: LDL ATP III CLASSIFI CATIONLDL less than 100 mg/dL OptimalLDL 100-129 mg/dL Near or above optimalLDL 130-159 mg/dL Borderline highLDL 160-189 mg/dL HighLDL greater than 189 mg/dL Very high Cholesterol in VLDL Calc [Ma ss/Vol]Ordered By: Roma Pritchard on 03-25-2023 Cholesterol in VLDL [Mass/Vol] 19 mg/dL [facility] Complete Blood Count Auto Di ffon 03-25-2023 Basophils (Bld) [#/Vol] 0.0 10*3/uL Normal 0.0-0.2 [facility] Comment on above: Result Comment: PERF ORMED BY: [place] [address] PATHOLOGIST OIL REC[employer] UNIT OPERATOR CIRA GRAHAM M.D. Performed By: #### C BC, FOL, TSH3, [id number], CMP, FE and TIBC, B12, A1C WTH eA, LIPID, DINA #### [facility] [address] [place] [address] [place] Basophils/100 WBC (Bld) 0.7 % Normal . [facility] Comment on above: Performed By: #### C BC, FOL, TSH3, [id number], CMP, FE and TIBC, B12, A1C WTH eA, LIPID, DINA #### [facility] [address] [place] [address] [place] Eosinophils (Bld) [#/Vol] 0.1 10*3/uL Normal 0.0-0.45 [facility] Comment on above: Performed By: #### C BC, FOL, TSH3, [id number], CMP, FE and TIBC, B12, A1C WTH eA, LIPID, DINA #### [address] Eosinophils/100 WBC (Bld) 1.8 % Normal . [facility] Comment on above: Performed By: #### C BC, FOL, TSH3, [id number], CMP, FE and TIBC, B12, A1C WTH eA, LIPID, DINA #### [address] Erythrocyte distribution width (RBC) [Ratio] 14.2 % Normal 11.9-15.3 [facility] Comment on above: Performed By: #### C BC, FOL, TSH3, [id number], CMP, FE and TIBC, B12, A1C WTH eA, LIPID, DINA #### [address] Hematocrit (Bld) [Volume fraction] 39.7 % Normal 34.0-46.4 [facility] Comment on above: Performed By: #### C BC, FOL, TSH3, [id number], CMP, FE and TIBC, B12, A1C WTH eA, LIPID, DINA #### [address] Hemoglobin (Bld) [Mass/Vol] 13.2 g/dL Normal 11.8-15.4 [facility] Comment on above: Performed By: #### C BC, FOL, TSH3, [id number], CMP, FE and TIBC, B12, A1C WTH eA, LIPID, DINA #### [address] Lymphocytes (Bld) [#/Vol] 1.6 10*3/uL Normal 1.00-4.8 [facility] Comment on above: Performed By: #### C BC, FOL, TSH3, [id number], CMP, FE and TIBC, B12, A1C WTH eA, LIPID, DINA #### [address] Lymphocytes/100 WBC (Bld) 26.5 % Normal . [facility] Comment on above: Performed By: #### C BC, FOL, TSH3, [id number], CMP, FE and TIBC, B12, A1C WTH eA, LIPID, DINA #### [address] MCH (RBC) [Entitic mass] 31.0 pg Normal 24.7-34.3 [facility] Comment on above: Performed By: #### C BC, FOL, TSH3, [id number], CMP, FE and TIBC, B12, A1C WTH eA, LIPID, DINA #### [address] MCV (RBC) [Entitic vol] 93.0 fL Normal 80-100 [facility] Comment on above: Performed By: #### C BC, FOL, TSH3, [id number], CMP, FE and TIBC, B12, A1C WTH eA, LIPID, DINA #### [address] Mean Corpuscular HGB Conc 33.4 g/dL Normal 32.0-35.0 [facility] Comment on above: Performed By: #### C BC, FOL, TSH3, [id number], CMP, FE and TIBC, B12, A1C WTH eA, LIPID, DINA #### [address] Monocytes (Bld) [#/Vol] 0.4 10*3/uL Normal 0.0-0.8 [facility] Comment on above: Performed By: #### C BC, FOL, TSH3, [id number], CMP, FE and TIBC, B12, A1C WTH eA, LIPID, DINA #### [address] Monocytes/100 WBC (Bld) 7.1 % Normal . [facility] Comment on above: Performed By: #### C BC, FOL, TSH3, [id number], CMP, FE and TIBC, B12, A1C WTH eA, LIPID, DINA #### [facility] [address] [place] [address] [place] Neutrophils (Bld) [#/Vol] 3.9 10*3/uL Normal 1.8-7.7 [facility] Comment on above: Performed By: #### C BC, FOL, TSH3, [id number], CMP, FE and TIBC, B12, A1C WTH eA, LIPID, DINA #### [facility] [address] Neutrophils/100 WBC (Bld) 63.9 % Normal . [facility] Comment on above: Performed By: #### C BC, FOL, TSH3, [id number], CMP, FE and TIBC, B12, A1C WTH eA, LIPID, DIAN #### [address] NRBC% 0.1 /100{WBC} Normal 0-0.5 [facility] Comment on above: Performed By: #### C BC, FOL, TSH3, [id number], CMP, FE and TIBC, B12, A1C WTH eA, LIPID, DINA #### [address] Platelet mean volume (Bld) [Entitic vol] 9.6 fL Normal 6.3-10.7 [facility] Comment on above: Performed By: #### C BC, FOL, TSH3, [id number], CMP, FE and TIBC, B12, A1C WTH eA, LIPID, DINA #### [place] [address] [place] Platelets (Bld) [#/Vol] 248 10*3/uL Normal 150-450 [facility] Comment on above: Performed By: #### C BC, FOL, TSH3, [id number], CMP, FE and TIBC, B12, A1C WTH eA, LIPID, DINA #### [address] RBC (Bld) [#/Vol] 4.27 10*6/uL Normal 3.60-5.00 [facility] Comment on above: Performed By: #### C BC, FOL, TSH3, [id number], CMP, FE and TIBC, B12, A1C WTH eA, LIPID, DINA #### [facility] [address] WBC (Bld) [#/Vol] 6.2 10*3/uL Normal 3.8-11.6 [facility] Comment on above: Performed By: #### C BC, FOL, TSH3, [id number], CMP, FE and TIBC, B12, A1C WTH eA, LIPID, DINA #### [facility] [address] [place] [address] Comprehensive Metabolic Pane rebel 03-25-2023 Albumin [Mass/Vol] 4.3 g/dL Normal 3.5-5.7 [facility] Comment on above: Performed By: #### C BC, FOL, TSH3, [id number], CMP, FE and TIBC, B12, A1C WTH eA, LIPID, DINA #### [address] Albumin/Globulin [Mass ratio] 1.7 {ratio} Normal [facility] Comment on above: Performed By: #### C BC, FOL, TSH3, [id number], CMP, FE and TIBC, B12, A1C WTH eA, LIPID, DINA #### [facility] [address] [place] [address] ALP [Catalytic activity/Vol] 74 U/L Normal 34-104 [facility] Comment on above: Performed By: #### C BC, FOL, TSH3, [id number], CMP, FE and TIBC, B12, A1C WTH eA, LIPID, DINA #### [address] ALT [Catalytic activity/Vol] 17 U/L Normal 7-52 [facility] Comment on above: Performed By: #### C BC, FOL, TSH3, [id number], CMP, FE and TIBC, B12, A1C WTH eA, LIPID, DINA #### [facility] [address] Anion gap [Moles/Vol] 9.9 mmol/L Normal 6.0-15.[address] [facility] Comment on above: Performed By: #### C BC, FOL, TSH3, [id number], CMP, FE and TIBC, B12, A1C WTH eA, LIPID, DINA #### [facility] [address] AST [Catalytic activity/Vol] 16 U/L Normal 13-39 [facility] Comment on above: Performed By: #### C BC, FOL, TSH3, [id number], CMP, FE and TIBC, B12, A1C WTH eA, LIPID, DINA #### [address] Bilirubin [Mass/Vol] 0.6 mg/dL Normal 0.3-1.0 [facility] Comment on above: Performed By: #### C BC, FOL, TSH3, [id number], CMP, FE and TIBC, B12, A1C WTH eA, LIPID, DINA #### [address] Calcium [Mass/Vol] 9.8 mg/dL Normal 8.6-10.3 [facility] Comment on above: Performed By: #### C BC, FOL, TSH3, [id number], CMP, FE and TIBC, B12, A1C WTH eA, LIPID, DINA #### [place] [address] [place] Chloride [Moles/Vol] 103 mmol/L Normal 98-107 [facility] Comment on above: Performed By: #### C BC, FOL, TSH3, [id number], CMP, FE and TIBC, B12, A1C WTH eA, LIPID, DINA #### [address] CO2 [Moles/Vol] 33.1 mmol/L High 21.0-31.0 [facility] Comment on above: Performed By: #### C BC, FOL, TSH3, [id number], CMP, FE and TIBC, B12, A1C WTH eA, LIPID, DINA #### [facility] [address] Creatinine [Mass/Vol] 0.76 mg/dL Normal 0.60-1.[address] [facility] Comment on above: Performed By: #### C BC, FOL, TSH3, [id number], CMP, FE and TIBC, B12, A1C WTH eA, LIPID, DINA #### [facility] [address] GFR/1.73 sq M.predicted MDRD (S/P/Bld) [Vol rate/Area] mL/min/{1.73_m2} [facility] Comment on above: Performed By: #### C BC, FOL, TSH3, [id number], CMP, FE and TIBC, B12, A1C WTH eA, LIPID, DINA #### [address] Globulin (S) [Mass/Vol] 2.6 g/dL [facility] Comment on above: Performed By: #### C BC, FOL, TSH3, [id number], CMP, FE and TIBC, B12, A1C WTH eA, LIPID, DINA #### [address] Glucose [Mass/Vol] 96 mg/dL Normal 70-100 [facility] Comment on above: Result Comment: [facility] Glucose Reference Range is dependent on time and content of last meal. Glucose of more than 200 mg/dL in a nonstressed, ambulatory subject supports the diagnosis of Diabetes Mellitus. ADA recommended reference range Performed By: #### C BC, FOL, TSH3, [id number], CMP, FE and TIBC, B12, A1C WTH eA, LIPID, DINA #### [address] Potassium [Moles/Vol] 4.0 mmol/L Normal 3.5-5.[address] [facility] Comment on above: Performed By: #### C BC, FOL, TSH3, [id number], CMP, FE and TIBC, B12, A1C WTH eA, LIPID, DINA #### [facility] [address] [place] [address] [place] Protein [Mass/Vol] 6.9 g/dL Normal 6.4-8.9 [facility] Comment on above: Performed By: #### C BC, FOL, TSH3, [id number], CMP, FE and TIBC, B12, A1C WTH eA, LIPID, DINA #### [facility] [address] Sodium [Moles/Vol] 142 mmol/L Normal 136-145 [facility] Comment on above: Performed By: #### C BC, FOL, TSH3, [id number], CMP, FE and TIBC, B12, A1C WTH eA, LIPID, DINA #### [facility] [address] [place] [address] [place] Urea nitrogen [Mass/Vol] 18 mg/dL Normal 7-25 [facility] Comment on above: Performed By: #### C BC, FOL, TSH3, [id number], CMP, FE and TIBC, B12, A1C WTH eA, LIPID, DINA #### [facility] [address] Creatinine [Mass/volume] in Serum or PlasmaOrdered By: Roma Pritchard on 03-25-2023 Creatinine [Mass/Vol] 0.76 mg/dL 0.60-1.[address] [facility] Eosinophils Auto (Bld) [#/Vo l]Ordered By: Roma Pritchard on 03-25-2023 Eosinophils (Bld) [#/Vol] 0.1 10*3/uL 0.0-0.45 [facility] Eosinophils/100 WBC Auto (Bl d)Ordered By: Roma Pritchard on 03-25-2023 Eosinophils/100 WBC (Bld) 1.8 % . [facility] Erythrocyte distribution wid th Auto (RBC) [Ratio]Ordered By: Roma Pritchard on 03-25-2023 Erythrocyte distribution width (RBC) [Ratio] 14.2 % 11.9-15.3 [facility] Ferritinon 03-25-2023 Ferritin [Mass/Vol] 19.7 ng/mL Normal 11.0-306.8 [facility] Comment on above: Performed By: #### A 1C [facility] eA #### [facility] [address] [place] [address] [place] #### NICOTINE #### [facility] , Ferritin [Mass/volume] in Se rum or PlasmaOrdered By: Roma Pritchard on 03-25-2023 Ferritin [Mass/Vol] 19.7 ng/mL 11.0-306.8 [facility] Folateon 03-25-2023 Folate 15.8 ng/mL Normal >5.9 [facility] Comment on above: Result Comment: Ирина te reference range: >5.9 ng/ml The WHO technical consultation on folate and vitamin b12 deficiencies has determined that folate concentrations less than 4 ng/ml are considered deficient. Performed By: #### A 1C [facility] eA #### [facility] [address] [place] [address] [place] #### NICOTINE #### [facility] , Folate [Mass/volume] in Seru m or PlasmaOrdered By: Roma Pritchard on 03-25-2023 Folate [Mass/Vol] 15.8 ng/mL >5.9 [facility] Comment on above: Folate reference ran ge: >5.9 ng/mlThe WHO technical consultation on folate and vitamin [id number] has determined that folate concentrations lessthan 4 ng/ml are considered deficient. Globulin Calc (S) [Mass/Vol] Ordered By: Roma Pritchard on 03-25-2023 Globulin (S) [Mass/Vol] 2.6 g/dL [facility] Glucose [Mass/volume] in Ser um or PlasmaOrdered By: Roma Pritchard on 03-25-2023 Glucose [Mass/Vol] 96 mg/dL 70-100 [facility] Comment on above: ADA recommended refe rence rangeRandom Glucose Reference Range is dependent on time and content of last meal. Glucose of more than 200 mg/dL in a nonstressed, ambulatory subject supports the diagnosis of Diabetes Mellitus. Hematocrit Auto (Bld) [Volum e fraction]Ordered By: Roma Pritchard on 03-25-2023 Hematocrit (Bld) [Volume fraction] 39.7 % 34.0-46.4 [facility] Hemoglobin [Mass/volume] in BloodOrdered By: Roma Pritchard on 03-25-2023 Hemoglobin (Bld) [Mass/Vol] 13.2 g/dL 11.8-15.4 [facility] Iron [Mass/volume] in Serum or PlasmaOrdered By: Roma Pritchard on 03-25-2023 Iron [Mass/Vol] 77 ug/dL 50-212 [facility] Iron and TIBC Profileon 02-25 % Iron Saturation 15.5 % Low 20-50 [facility] Comment on above: Performed By: #### A 1C WT eA #### [facility] [address] [place] [address] [place] #### NICOTINE #### [facility] , Iron [Mass/Vol] 77 ug/dL Normal 50-212 [facility] Comment on above: Performed By: #### A 1C WTH eA #### [facility] [address] [place] [address] [place] #### NICOTINE #### [facility] , Total Iron Binding Capacity 497 ug/dL High 255-450 [facility] Comment on above: Performed By: #### A 1C WTH eA #### [facility] [address] [place] [address] [place] #### NICOTINE #### [facility] , Transferrin [Mass/Vol] 355 mg/dL Normal 203-362 [facility] Comment on above: Performed By: #### A 1C WTH eA #### [facility] [address] [place] [address] [place] #### NICOTINE #### [facility] , Iron binding capacity [Mass/ volume] in Serum or PlasmaOrdered By: Roma Pritchard on 03-25-2023 Iron binding capacity [Mass/Vol] 497 ug/dL 255-450 [facility] Iron saturation [Mass Fracti on] in Serum or PlasmaOrdered By: Roma Pritchard on 01-31-2024 Iron saturation [Mass fraction] 15.5 % 20-50 [facility] Leukocytes [#/volume] correc dinora for nucleated erythrocytes in Blood by Automated counOrdered By: Roma Pritchard on 03-25-2023 WBC corrected for nucl RBC Auto (Bld) [#/Vol] 6.2 10*3/uL 3.8-11.6 [facility] Lipid Panelon 03-25-2023 Cholesterol [Mass/Vol] 162 mg/dL Normal 140-200 [facility] Comment on above: Result Comment: Chol less than 200 mg/dl low risk Chol 201-239 mg/dl borderline risk Chol 240 mg/dl and greater high risk Performed By: #### A 1C WT eA #### [place] [address] [place] #### NICOTINE #### [facility] , Cholesterol in HDL [Mass/Vol] 83 mg/dL Normal 23-92 [facility] Comment on above: Result Comment: HDL CHOL ATP-III CLASSIFICATION Cardiovascular Risk HDL > or equal to 60 mg/dL LOW HDL < 40 mg/dL HIGH Performed By: #### A 1C WT eA #### [place] [address] [place] #### NICOTINE #### [facility] , Cholesterol.total/Cho lesterol in HDL [Mass ratio] 2.0 {ratio} Normal <5.0 [facility] Comment on above: Performed By: #### A 1C WT eA #### [facility] [address] [place] [address] [place] #### NICOTINE #### [facility] , LDL Cholesterol,Calculate d 60 mg/dL Normal 0-100 [facility] Comment on above: Result Comment: LDL ATP III CLASSIFICATION LDL less than 100 mg/dL Optimal LDL 100-129 mg/dL Near or above optimal LDL 130-159 mg/dL Borderline high LDL 160-189 mg/dL High LDL greater than 189 mg/dL Very high Performed By: #### A 1C WT eA #### [facility] [address] [place] [address] [place] #### NICOTINE #### [facility] , Triglyceride w/Reflex 95 mg/dL Normal 0-[address] [facility] Comment on above: Result Comment: TRIG ATP III CLASSIFICATION TRIG less than 150 mg/dL Normal TRIG 150-199 mg/dL Borderline high TRIG 200-500 mg/dL High TRIG greater than 500 mg/dL Very high Standard traceable to the Center for Disease Conrtrol and Prevention (CDC) test method. Performed By: #### A 1C [facility] eA #### [facility] [address] #### NICOTINE #### [facility] , VLDL CHOLESTEROL 19 mg/dL Normal [facility] Comment on above: Performed By: #### A 1C [facility] eA #### [facility] [address] [place] [address] [place] #### NICOTINE #### [facility] , Lymphocytes Auto (Bld) [#/Vo l]Ordered By: Roma Pritchard on 03-25-2023 Lymphocytes (Bld) [#/Vol] 1.6 10*3/uL 1.00-4.8 [facility] Lymphocytes/100 WBC Auto (Bl d)Ordered By: Roma Pritchard on 03-25-2023 Lymphocytes/100 WBC (Bld) 26.5 % . [facility] MCH Auto (RBC) [Entitic mass ]Ordered By: Roma Pritchard on 03-25-2023 MCH (RBC) [Entitic mass] 31.0 pg 24.7-34.3 [facility] MCHC Auto (RBC) [Mass/Vol]Or dered By: Roma Pritchard on 03-25-2023 MCHC (RBC) [Mass/Vol] 33.4 g/dL 32.0-35.[address] [facility] MCV Auto (RBC) [Entitic vol] Ordered By: Roma Pritchard on 03-25-2023 MCV (RBC) [Entitic vol] 93.0 fL 80-100 [facility] Monocytes Auto (Bld) [#/Vol] Ordered By: Roma Pritchard on 03-25-2023 Monocytes (Bld) [#/Vol] 0.4 10*3/uL 0.0-0.8 [facility] Monocytes/100 WBC Auto (Bld) Ordered By: Roma Pritchard on 03-25-2023 Monocytes/100 WBC (Bld) 7.1 % . [facility] Neutrophils Auto (Bld) [#/Vo l]Ordered By: Roma Pritchard on 03-25-2023 Neutrophils (Bld) [#/Vol] 3.9 10*3/uL 1.8-7.7 [facility] Neutrophils/100 WBC Auto (Bl d)Ordered By: Roma Pritchard on 03-25-2023 Neutrophils/100 WBC (Bld) 63.9 % . [facility] No Panel InformationOrdered By: Roma Pritchard on 03-25-2023 Estimated GFR (CKD-EPI) > 60.0 mL/Min [facility] Creatinine Clearance (Chem N/A [facility] Nucleated erythrocytes [Pres ence] in Blood by Automated countOrdered By: Roma Pritchard on 03-25-2023 Nucleated RBC Auto Ql (Bld) 0.1 /100{WBC} 0-0.5 [facility] Platelet mean volume Auto (B ld) [Entitic vol]Ordered By: Roma Pritchard on 03-25-2023 Platelet mean volume (Bld) [Entitic vol] 9.6 fL 6.3-10.7 [facility] Platelets Auto (Bld) [#/Vol] Ordered By: Roma Pritchard on 03-25-2023 Platelets (Bld) [#/Vol] 248 10*3/uL 150-450 [facility] Potassium [Moles/volume] in Serum or PlasmaOrdered By: Roma Pritchard on 03-25-2023 Potassium [Moles/Vol] 4.0 mmol/L 3.5-5.[address] [facility] Protein [Mass/volume] in Ser um or PlasmaOrdered By: Roma Pritchard on 03-25-2023 Protein [Mass/Vol] 6.9 g/dL 6.4-8.9 [facility] RBC Auto (Bld) [#/Vol]Ordere d By: Roma Pritchard on 03-25-2023 RBC (Bld) [#/Vol] 4.27 10*6/uL 3.60-5.00 [facility] Serum or plasma albumin/glob ulin mass ratioOrdered By: Roma Pritchard on 03-25-2023 Albumin/Globulin [Mass ratio] 1.7 {ratio} [facility] Serum or plasma anion gap de terminationOrdered By: Roma Pritchard on 03-25-2023 Anion gap [Moles/Vol] 9.9 mmol/L 6.0-15.[address] [facility] Serum or plasma high density lipoprotein (HDL) cholesterol measurementOrdered By: Roma Pritchard on 03-25-2023 Cholesterol in HDL [Mass/Vol] 83 mg/dL 23-92 [facility] Comment on above: HDL CHOL ATP-III CLA SSIFICATION Cardiovascular RiskHDL > or equal to 60 mg/dL LOWHDL < 40 mg/dL HIGH Serum or plasma total choles terol/high density lipoprotein (HDL) cholesterol mass ratOrdered By: Roma Pritchard on 03-25-2023 Cholesterol.total/Cho lesterol in HDL [Mass ratio] 2.0 {ratio} <5.0 [facility] Sodium [Moles/volume] in Ser um or PlasmaOrdered By: Roma Pritchard on 03-25-2023 Sodium [Moles/Vol] 142 mmol/L 136-145 [facility] Thyroid Stimulating Hormoneo n 03-25-2023 TSH Qn 1.73 m[IU]/L Normal 0.45-5.33 [facility] Comment on above: Performed By: #### A 1C [facility] eA #### [address] #### NICOTINE #### [facility] , Thyrotropin [Units/volume] i n Serum or PlasmaOrdered By: Roma Pritchard on 03-25-2023 TSH Qn 1.73 m[IU]/L 0.45-5.33 [facility] Transferrin [Mass/volume] in Serum or PlasmaOrdered By: Roma Pritchard on 03-25-2023 Transferrin [Mass/Vol] 355 mg/dL 203-362 [facility] Triglyceride [Mass/volume] i n Serum or PlasmaOrdered By: Roma Pritchard on 03-25-2023 Triglyceride [Mass/Vol] 95 mg/dL 0-149 [facility] Comment on above: TRIG ATP III CLASSIF ICATIONTRIG less than 150 mg/dL NormalTRIG 150-199 mg/dL Borderline highTRIG 200-500 mg/dL High TRIG greater than 500 mg/dL Very highStandard traceable to the Center for Disease Conrtrol and Prevention (CDC) test method. Urea nitrogen [Mass/volume] in Serum or PlasmaOrdered By: Roma Pritchard on 03-25-2023 Urea nitrogen [Mass/Vol] 18 mg/dL 7-25 [facility] Vitamin B12on 03-25-2023 Cobalamin (Vitamin B12) [Mass/Vol] 595 pg/mL Normal 180-914 [facility] Comment on above: Performed By: #### A 1C [facility] eA #### [address] #### NICOTINE #### [facility] , Vitamin B12 ser/plasOrdered By: Roma Pritchard on 03-25-2023 Cobalamin (Vitamin B12) [Mass/Vol] 595 pg/mL 180-914 [facility] Vitamin D 25 Hydroxy Totalon 03-25-2023 Vitamin D 25 Hydroxy Total 30.6 ng/mL Normal 30-100 [facility] Comment on above: Result Comment: AMBIKA MIN D STATUS 25([place])VITAMIN D RANGE (ng/mL) Deficient <20 Insufficient 20 to <30 Sufficient 30 to 100 Reference: Bro MF,Salo NC, Iqra PAGE, et al. Evaluation,treatment, and prevention of vitamin D deficiency; an Endocrine Society clinical practice guideline. JCEM. 2010; 96(7):1911-30. PERFORMED BY: [place] [address] PATHOLOGIST OIL [employer] UNIT OPERATOR CIRA GRAHAM M.D. Performed By: #### A 1C [facility] eA #### [address] #### NICOTINE #### [facility] , Vitamin D+Metabolites [Mass/ volume] in Serum or PlasmaOrdered By: Roma Pritchard on 03-25-2023 Vitamin D+Metabolites [Mass/Vol] 30.6 ng/mL 30-100 [facility] Comment on above: VITAMIN D STATUS 25( [place])VITAMIN D RANGE (ng/mL) Deficient <20 Insufficient 20 to <30Sufficient 30 to 100Reference: Bro MF,Salo DARNELL, Iqra PAGE, et al. Evaluation,treatment, and prevention of vitamin D deficiency; an Endocrine Society clinical practice guideline. JCEM. 2010; 96(7):1911-30. WBC Auto (Bld) [#/Vol]Ordere d By: Roma Pritchard on 03-25-2023 WBC (Bld) [#/Vol] 6.2 10*3/uL 3.8-11.6 [facility] XR shoulder RT min 2V*on XR shoulder RT min 2V* [place] [address] XRay Report Signed Patient: Teagan Gonsales MR#: [id number] : 1955 Acct:[id number] Age/Sex: 67 / F ADM Date: 03/03/23 [place] [facility] [place] Type: [facility] Attending Dr: Colby Shaffer DO Copies to: Colby Shaffer DO Ordering Provider: Colby Shaffer DO Date of Service: 03/03/23 XR/XR shoulder RT min 2V*: Acute pain of right shoulder RIGHT SHOULDER - 4 views CLINICAL HISTORY: Right shoulder pain, decreased range of motion and weakness. No reported injury. COMPARISON: None AP, Y, axillary and Grashey views were obtained. There is osteopenia. There is no evidence of fracture or dislocation. Degenerative changes are present at the acromioclavicular joint and greater tuberosity. There are no significant soft tissue abnormalities. XR/XR shoulder RT min 2V* IMPRESSION: NO ACUTE BONY FINDINGS. Impression dictated by: Yadira Augustin M.D.03/03/2023 12:33 PM Dictation Location: [place] [address] Transcribed By: MITCH 03/03/23 1233 Dictated By: Yadira Augustin MD 03/03/23 1231 Signed By: 03/03/23 1233 [facility] MM screening mammo BI w/CADo n 01-19-2023 MM screening mammo BI w/CAD [facility] [place] [id number] Mammography Report Signed Patient: Teagan Gonsales MR#: [id number] : 1955 Acct:[id number] Age/Sex: 67 / F ADM Date: 01/19/23 Loc: [place] Room: Type: [facility] Attending Dr: Referral Self Copies to: Roma Pritchard, SELF,REFERRAL Ordering Provider: SELF,REFERRAL Date of Service: 01/19/23 MM/MM screening mammo BI w/CAD: SCREENING CLINICAL DATA: Screening for malignancy. SCREENING MAMMOGRAM - FULL FIELD DIGITAL WITH TOMOSYNTHESIS AND CAD COMPARISON:Mammograms dating back to 2019 Tomosynthesis craniocaudal and mediolateral oblique views of both breasts were obtained using low- dose digital technique. This examination was reviewed with the aid of CAD. The breast tissue is composed of scattered fibroglandular densities. There are no dominant masses, typically malignant calcifications or architectural distortion. There has been no significant interval change. MM/MM screening mammo BI w/CAD IMPRESSION: NO MAMMOGRAPHIC EVIDENCE OF MALIGNANCY. ROUTINE FOLLOW-UP IS RECOMMENDED IN ONE YEAR. RESULT CODE: 1 Negative DENSITY CODE: 2 (approximately 25-50% glandular) FOLLOW UP: 1YR The false-negative rate of mammography is approximately 10-percent. Management of a palpable abnormality must be based on clinical grounds. Patient was entered into a reminder system with a target due date for the next mammogram. Impression dictated by: Martin Ruano Jr., DNkechiONkechi01/19/2023 9:37 AM Dictation Location: [facility] Transcribed By: [facility] 01/19/23936 Dictated By: Martin Ruano Jr, DO 01/19/23935 Signed By: 01/19/23936 [facility] RAD - MISCon 01-14-2023 RAD - MISC [id number]#[id number] [facility] Lab Reportson 01-07-2023 Lab Reports [id number]#[id number] [facility] Screenson 01-07-2023 Screens [id number]#[id number] [facility] Ambulatory Visit Summaryon 1 03-08-2022 Ambulatory Visit Summary TEAGAN GONSALES :1955 Visit Date:01/06/2023 Ambulatory Visit Instructions Your Diagnosis Kidney stones Tests Performed Urnls Dip Stick Auto w/o Microscopy POC 95698 XR Abdomen 1 View -- Results Pending -- Please visit your patient portal for your results or contact your primary care physician. Your Care Team Attending Physician - MARIANA DUONG PA-C Primary Care Physician - Roma Pritchard DO This Is Your Medications List Contact prescribing physician if questions or concerns Turmeric alprazolam (Xanax) ascorbic acid (Vitamin C) atorvastatin (atorvastatin 20 mg Tab) buPROPion (Wellbutrin SR 100 mg Tab-ER) calcium-vitamin D carbonyl iron (Iron Chews) celecoxib (celecoxib 200 mg Cap) cyanocobalamin (Vitamin B12) ergocalciferol (Vitamin D) esomeprazole (esomeprazole 40 mg Cap-EC) hydrochlorothiazide (hydrochlorothiazide 25 mg oral tablet) losartan (losartan 100 mg Tab) oxybutynin (oxybutynin 5 mg ER Tab) Procedures Performed Breast surgery, Colonoscopy, Hip replacement, Tubal ligation. Discharge Vitals Heart Rate (Peripheral) 75 Respiratory Rate 16 Blood Pressure 127/79 Height 155 cm Height 61 in Weight 68.6 kg Weight 150.92 lb BMI 28.55 What to do next Scheduled Follow-Up Appointments Thursday 8:30 AM EST With: MARIANA DUONG PA-C Where: [facility] Patient Educationon 01-07-20 23 Patient Education Nephrology Dietary Guidelines to Help Prevent Kidney Stones Kidney stones are deposits of minerals and salts that form inside your kidneys. Your risk of developing kidney stones may be greater depending on your diet, your lifestyle, the medicines you take, and whether you have certain medical conditions. Most people can lower their chances of developing kidney stones by following the instructions below. Your dietitian may give you more specific instructions depending on your overall health and the type of kidney stones you tend to develop. What are tips for following this plan? Reading food labels ? Choose foods with no salt added or low-salt labels. Limit your salt (sodium) intake to less than 1,500 mg a day. ? Choose foods with calcium for each meal and snack. Try to eat about 300 mg of calcium at each meal. Foods that contain 200?500 mg of calcium a serving include: ? 8 oz (237 mL) of milk, aczjine-yusrqahrwizo-vcrot milk, and calcium-fortifiedfruit juice. Calcium-fortified means that calcium has been added to these drinks. ? 8 oz (237 mL) of kefir, yogurt, and soy yogurt. ? 4 oz (114 g) of tofu. ? 1 oz (28 g) of cheese. ? 1 cup (150 g) of dried figs. ? 1 cup (91 g) of cooked broccoli. ? One 3 oz (85 g) can of sardines or mackerel. Most people need 1,000?1,500 mg of calcium a day. Talk to your dietitian about how much calcium is recommended for you. Shopping ? Buy plenty of fresh fruits and vegetables. Most people do not need to avoid fruits and vegetables, even if these foods contain nutrients that may contribute to kidney stones. ? When shopping for convenience foods, choose: ? Whole pieces of fruit. ? Pre-made salads with dressing on the side. ? Low-fat fruit and yogurt smoothies. ? Avoid buying frozen meals or prepared deli foods. These can be high in sodium. ? Look for foods with live cultures, such as yogurt and kefir. ? Choose high-fiber grains, such as whole-wheat breads, oat bran, and wheat cereals. Cooking ? Do not add salt to food when cooking. Place a salt shaker on the table and allow each person to add his or her own salt to taste. ? Use vegetable protein, such as beans, textured vegetable protein (TVP), or tofu, instead of meat in pasta, casseroles, and soups. Meal planning ? Eat less salt, if told by your dietitian. To do this: ? Avoid eating processed or pre-made food. ? Avoid eating fast food. ? Eat less animal protein, including cheese, meat, poultry, or fish, if told by your dietitian. To do this: ? Limit the number of times you have meat, poultry, fish, or cheese each week. Eat a diet free of meat at least 2 days a week. ? Eat only one serving each day of meat, poultry, fish, or seafood. ? When you prepare animal protein, cut pieces into small portion sizes. For most meat and fish, one serving is about the size of the palm of your hand. ? Eat at least five servings of fresh fruits and vegetables each day. To do this: ? Keep fruits and vegetables on hand for snacks. ? Eat one piece of fruit or a handful of berries with breakfast. ? Have a salad and fruit at lunch. ? Have two kinds of vegetables at dinner. ? Limit foods that are high in a substance called oxalate. These include: ? Spinach (cooked), rhubarb, beets, sweet potatoes, and Macedonian chard. ? Peanuts. ? Potato chips, mexican fries, and baked potatoes with skin on. ? Nuts and nut products. ? Chocolate. ? If you regularly take a diuretic medicine, make sure to eat at least 1 or 2 servings of fruits or vegetables that are high in potassium each day. These include: ? Avocado. ? Banana. ? [place], prune, carrot, or tomato juice. ? Baked potato. ? Cabbage. ? Beans and split peas. Lifestyle ? Drink enough fluid to keep your urine pale yellow. This is the most important thing you can do. Spread your fluid intake throughout the day. ? If you drink alcohol: ? Limit how much you use to: ? 0?1 drink a day for women who are not . ? 0?2 drinks a day for men. ? Be aware of how much alcohol is in your drink. In the [place] one drink equals one 12 oz bottle of beer (355 mL), one 5 oz glass of wine (148 mL), or one 1? oz glass of hard liquor (44 mL). ? Lose weight if told by your health care provider. Work with your dietitian to find an eating plan and weight loss strategies that work best for you. General information ? Talk to your health care provider and dietitian about taking daily supplements. You may be told the following depending on your health and the cause of your kidney stones: ? Not to take supplements with vitamin C. ? To take a calcium supplement. ? To take a daily probiotic supplement. ? To take other supplements such as magnesium, fish oil, or vitamin B6. ? Take rbyh-eoe-xuqfvgj and prescription medicines only as told by your health care provider. These include supplements. What foods should I limit? Limit your in (more content not included)... [facility] Urology Office/Clinic Noteon 01-06-2023 Urology Office/Clinic Note Chief Complaint 1 year with KUB HPI Staff Previous DLS pt 1yr KUB done 01/02/23 DX: Kidney Stone Pt. states she is not longer taking Oxybutynin therapy from [facility] [employer], Pt. also states she does have the medication on hand will take when needed. Dysuria: no Incomplete bladder emptying: no Hematuria: UA shows trace today Frequency: At least once an hour Urgency: no Nocturia: 2x's Stream: good stream Post void dripping: no Wearing pads/ Depends: no Urge incontinence: no Stress incontinence: no Incontinence without Sensory Awareness: no Abdominal pain: no Flank pain: Pt. states her back always hurts. History of Present Illness staff HPI reviewed and agree. Review of Systems PHQ Score Initial Depression Screen Score: 0 SCORE no fever, chills, malaise, myalgia. no rash/lesions. no chest pain, palpitations, or SOB. no abdominal pain, nausea, vomiting. no unilateral calf swelling, redness, pain Physical Exam Vitals & Measurements HR: 75(Peripheral) RR: 16 BP: 127/79 HT: 61 in HT: 155 cm WT: 68.6 kg WT: 150.92 lb BMI: 28.55 General: nontoxic, NAD Mouth: moist mucosa Lungs: normal respiratory effort Cardio: regular rate, good distal perfusion Abdomen: nondistended, no suprapubic distention or tenderness, no CVA tenderness Neurologic: Grossly normal Skin: No rashes or suspicious lesions Assessment/Plan Former DLS pt BBS 12. Oxybutynin therapy managed by [facility], has not been taking it but has it at home if needed 1. Kidney stones (N20.0: Calculus of kidney) S/p R stone extraction 12/25/19 Stone analysis - 80% ca ox mono, 20% ca ox di Previous KUB 12/30/21 neg for stones. Current KUB 01/02/23 shows a 3 mm calculus over the inferior aspect of the right kidney. Denies pain, gross hematuria or passage of stones. Advised pt she should be able to pass on her own if the stone would decide to move, does not require surgical intervention. Discussed possible sx associated with stone passage. UA today trace-intact blood, small blood. Unremarkable. no UTIs in the past year. BUN 23, Cr 0.73, eGFR > 60 10/17/22. Kidney fxn wnl. Discussed dietary modifications. Take calcium w/ Vit D. Possible met workup in the future if stone formation increases. -Adequate water intake (4x20oz water), add lemon -offered PRN f/u, Pt prefers to cont to surveillance of stones annually -Call if pt has pain, gross hematuria. ER if fever/chills, N/V, uncontrolled pain -Follow up in 1 year w/ KUB Follow-up With When Contact Information AD JONES, MARIANA Johnson, URL [address] [facility] [place] [address] Additional Instructions: 1 year w/ KUB Patient Education Dietary Guidelines to Help Prevent Kidney Stones Documentation recorded by the vanna Jeffries accurately reflects the services(s) I performed and decisions made by me. Authenticated by Mariana Duong PA-C on 01/06/2023 08:55:49. IBreana, personally scribed for Mariana Duong PA-C on 01/06/2023 08:50:56. . Problem List/Past Medical History Ongoing Arthritis High cholesterol Hypertension Kidney stones Historical No qualifying data Procedure/Surgical History Breast surgery, Colonoscopy, Hip replacement, Tubal ligation. Medications atorvastatin 20 mg Tab, Oral, Daily calcium-vitamin D, Daily celecoxib 200 mg Cap, Oral, BID, Not taking esomeprazole 40 mg Cap-EC, Oral, Daily, Not taking hydrochlorothiazide 25 mg oral tablet, Oral, Daily Iron Chews, Oral, Daily losartan 100 mg Tab, Oral, Daily oxybutynin 5 mg ER Tab, Oral, Daily, Not taking Turmeric, Oral, Daily Vitamin B12 Vitamin C, Daily Vitamin D, Oral, BID Wellbutrin SR 100 mg Tab-ER, 100 mg= 1 tab(s), Oral, Daily Xanax, Oral, As Directed Allergies No Known Allergies Social History Alcohol - Low Risk, 01/24/2020 Tobacco - Denies Tobacco Use, 01/24/2020 Former smoker, quit more than 30 days ago Tobacco Use:., 01/06/2023 Former smoker, quit more than 30 days ago Tobacco Use:., 01/24/2020 Family History High cholesterol: Brother. Kidney stone: Brother. Lung cancer: Brother. Migraine: Mother. Uterine cancer: Mother. Immunizations Vaccine Date Status influenza virus vaccine, inactivated 12/23/2022 Recorded SARS-CoV-2 (COVID-19) [id number] 11/23/2021 Recorded influenza virus vaccine, inactivated 11/20/2021 Recorded SARS-CoV-2 (COVID-19) mRNA BNT-162b2 vax 12/12/2020 Recorded influenza virus vaccine, inactivated 11/07/2020 Recorded SARS-CoV-2 (COVID-19) mRNA BNT-162b2 vax 05/22/2020 Recorded SARS-CoV-2 (COVID-19) mRNA BNT-162b2 vax 05/16/2020 Recorded SARS-CoV-2 (COVID-19) mRNA BNT-162b2 vax 05/01/2020 Recorded SARS-CoV-2 (COVID-19) mRNA BNT-162b2 vax 04/25/2020 Recorded influenza virus vaccine, inactivated 12/09/2019 Recorded influenza virus vaccine, inactivated 11/2019 Recorded zoster vaccine, inactivated 12/31/2017 Recorded z (more content not included)... [facility] Comment on above: Result Comment: Elec tronically Signed By: MARIANA DUONG PA-C\.br\Date and Time Signed: 01/06/23 08:56 EST\.br\Electronically Co-Signed By: Breana Jeffries.br\Date and Time Co-Signed: 01/06/23 08:51 EST\.br\Electronically Co-Signed By: Breana Jeffries\.br\Date and Time Co-Signed: 01/06/23 08:52 EST Basophils Auto (Bld) [#/Vol] Ordered By: Roma Pritchard on 12-26-2022 Basophils (Bld) [#/Vol] 0.0 10*3/uL 0.0-0.2 [facility] Basophils/100 WBC Auto (Bld) Ordered By: Roma Pritchard on 12-26-2022 Basophils/100 WBC (Bld) 0.6 % . [facility] Complete Blood Count Auto Di ffon 12-26-2022 Basophils (Bld) [#/Vol] 0.0 10*3/uL Normal 0.0-0.2 [facility] Comment on above: Result Comment: PERF ORMED BY: [place] [address] PATHOLOGIST OIL RECOVERY UNIT OPERATOR CIRA GRAHAM M.D. Performed By: #### A 1C [facility] eA #### [facility] [address] [place] [address] [place] #### NICOTINE #### [facility] , Basophils/100 WBC (Bld) 0.6 % Normal . [facility] Comment on above: Performed By: #### A 1C WT eA #### [facility] [address] [place] [address] [place] #### NICOTINE #### [facility] , Eosinophils (Bld) [#/Vol] 0.3 10*3/uL Normal 0.0-0.45 [facility] Comment on above: Performed By: #### A 1C WT eA #### [facility] [address] [place] [address] [place] #### NICOTINE #### [facility] , Eosinophils/100 WBC (Bld) 4.1 % Normal . [facility] Comment on above: Performed By: #### A 1C WT eA #### [facility] [address] [place] [address] [place] #### NICOTINE #### [facility] , Erythrocyte distribution width (RBC) [Ratio] 14.4 % Normal 11.9-15.3 [facility] Comment on above: Performed By: #### A 1C [facility] eA #### [address] #### NICOTINE #### [facility] , Hematocrit (Bld) [Volume fraction] 37.7 % Normal 34.0-46.4 [facility] Comment on above: Performed By: #### A 1C [facility] eA #### [address] #### NICOTINE #### [facility] , Hemoglobin (Bld) [Mass/Vol] 12.4 g/dL Normal 11.8-15.4 [facility] Comment on above: Performed By: #### A 1C [facility] eA #### [address] #### NICOTINE #### [facility] , Lymphocytes (Bld) [#/Vol] 1.7 10*3/uL Normal 1.00-4.8 [facility] Comment on above: Performed By: #### A 1C [facility] eA #### [address] #### NICOTINE #### [facility] , Lymphocytes/100 WBC (Bld) 27.1 % Normal . [facility] Comment on above: Performed By: #### A 1C [facility] eA #### [place] [address] [place] #### NICOTINE #### [facility] , MCH (RBC) [Entitic mass] 30.1 pg Normal 24.7-34.3 [facility] Comment on above: Performed By: #### A 1C [facility] eA #### [place] [address] [place] #### NICOTINE #### [facility] , MCV (RBC) [Entitic vol] 91.7 fL Normal 80-100 [facility] Comment on above: Performed By: #### A 1C [facility] eA #### [facility] [address] [place] [address] [place] #### NICOTINE #### [facility] , Mean Corpuscular HGB Conc 32.8 g/dL Normal 32.0-35.0 [facility] Comment on above: Performed By: #### A 1C [facility] eA #### [place] [address] [place] #### NICOTINE #### [facility] , Monocytes (Bld) [#/Vol] 0.5 10*3/uL Normal 0.0-0.8 [facility] Comment on above: Performed By: #### A 1C [facility] eA #### [place] [address] [place] #### NICOTINE #### [facility] , Monocytes/100 WBC (Bld) 8.0 % Normal . [facility] Comment on above: Performed By: #### A 1C [facility] eA #### [address] #### NICOTINE #### [facility] , Neutrophils (Bld) [#/Vol] 3.8 10*3/uL Normal 1.8-7.7 [facility] Comment on above: Performed By: #### A 1C [facility] eA #### [facility] [address] [place] [address] [place] #### NICOTINE #### [facility] , Neutrophils/100 WBC (Bld) 60.2 % Normal . [facility] Comment on above: Performed By: #### A 1C [facility] eA #### [facility] [address] [place] [address] [place] #### NICOTINE #### [facility] , NRBC% 0.0 /100{WBC} Normal 0-0.5 [facility] Comment on above: Performed By: #### A 1C WT eA #### [place] [address] [place] #### NICOTINE #### [facility] , Platelet mean volume (Bld) [Entitic vol] 9.8 fL Normal 6.3-10.7 [facility] Comment on above: Performed By: #### A 1C WT eA #### [place] [address] [place] #### NICOTINE #### [facility] , Platelets (Bld) [#/Vol] 255 10*3/uL Normal 150-450 [facility] Comment on above: Performed By: #### A 1C WT eA #### [place] [address] [place] #### NICOTINE #### [facility] , RBC (Bld) [#/Vol] 4.11 10*6/uL Normal 3.60-5.00 [facility] Comment on above: Performed By: #### A 1C WT eA #### [place] [address] [place] #### NICOTINE #### [facility] , WBC (Bld) [#/Vol] 6.4 10*3/uL Normal 3.8-11.6 [facility] Comment on above: Performed By: #### A 1C WT eA #### [place] [address] [place] #### NICOTINE #### [facility] , Eosinophils Auto (Bld) [#/Vo l]Ordered By: Roma Pritchard on 12-26-2022 Eosinophils (Bld) [#/Vol] 0.3 10*3/uL 0.0-0.45 [facility] Eosinophils/100 WBC Auto (Bl d)Ordered By: Roma Pritchard on 12-26-2022 Eosinophils/100 WBC (Bld) 4.1 % . [facility] Erythrocyte distribution wid th Auto (RBC) [Ratio]Ordered By: Roma Pritchard on 12-26-2022 Erythrocyte distribution width (RBC) [Ratio] 14.4 % 11.9-15.3 [facility] Ferritinon 12-26-2022 Ferritin [Mass/Vol] 31.9 ng/mL Normal 11.0-306.8 [facility] Comment on above: Performed By: #### A [facility] eA #### [place] [address] [place] #### NICOTINE #### [facility] , Ferritin [Mass/volume] in Se rum or PlasmaOrdered By: Roma Pritchard on 12-26-2022 Ferritin [Mass/Vol] 31.9 ng/mL 11.0-306.8 [facility] Folateon 12-26-2022 Folate 10.7 ng/mL Normal >5.9 [facility] Comment on above: Result Comment: Ирина te reference range: >5.9 ng/ml The WHO technical consultation on folate and vitamin b12 deficiencies has determined that folate concentrations less than 4 ng/ml are considered deficient. Performed By: #### A 1C [facility] eA #### [place] [address] [place] #### NICOTINE #### [facility] , Folate [Mass/volume] in Seru m or PlasmaOrdered By: Roma Pritchard on 12-26-2022 Folate [Mass/Vol] 10.7 ng/mL >5.9 [facility] Comment on above: Folate reference ran ge: >5.9 ng/mlThe WHO technical consultation on folate and vitamin [id number] has determined that folate concentrations lessthan 4 ng/ml are considered deficient. Hematocrit Auto (Bld) [Volum e fraction]Ordered By: Roma Pritchard on 12-26-2022 Hematocrit (Bld) [Volume fraction] 37.7 % 34.0-46.4 [facility] Hemoglobin [Mass/volume] in BloodOrdered By: Roma Pritchard on 12-26-2022 Hemoglobin (Bld) [Mass/Vol] 12.4 g/dL 11.8-15.4 [facility] Iron [Mass/volume] in Serum or PlasmaOrdered By: Roma Pritchard on 12-26-2022 Iron [Mass/Vol] 51 ug/dL 50-212 [facility] Iron and TIBC Profileon 11-0 -2022 % Iron Saturation 11.6 % Low 20-50 [facility] Comment on above: Performed By: #### A 1C WT eA #### [facility] [address] [place] [address] [place] #### NICOTINE #### [facility] , Iron [Mass/Vol] 51 ug/dL Normal 50-212 [facility] Comment on above: Performed By: #### A 1C WTH eA #### [facility] [address] [place] [address] [place] #### NICOTINE #### [facility] , Total Iron Binding Capacity 440 ug/dL Normal 255-450 [facility] Comment on above: Performed By: #### A 1C WTH eA #### [facility] [address] [place] [address] [place] #### NICOTINE #### [facility] , Transferrin [Mass/Vol] 314 mg/dL Normal 203-362 [facility] Comment on above: Performed By: #### A 1C WTH eA #### [facility] [address] [place] [address] [place] #### NICOTINE #### [facility] , Iron binding capacity [Mass/ volume] in Serum or PlasmaOrdered By: Roma Pritchard on 12-26-2022 Iron binding capacity [Mass/Vol] 440 ug/dL 255-450 [facility] Iron saturation [Mass Fracti on] in Serum or PlasmaOrdered By: Roma Pritchard on 12-26-2022 Iron saturation [Mass fraction] 11.6 % 20-50 [facility] Leukocytes [#/volume] correc dinora for nucleated erythrocytes in Blood by Automated counOrdered By: Roma Pritchard on 12-26-2022 WBC corrected for nucl RBC Auto (Bld) [#/Vol] 6.4 10*3/uL 3.8-11.6 [facility] Lymphocytes Auto (Bld) [#/Vo l]Ordered By: Roma Pritchard on 12-26-2022 Lymphocytes (Bld) [#/Vol] 1.7 10*3/uL 1.00-4.8 [facility] Lymphocytes/100 WBC Auto (Bl d)Ordered By: Roma Pritchard on 12-26-2022 Lymphocytes/100 WBC (Bld) 27.1 % . [facility] MCH Auto (RBC) [Entitic mass ]Ordered By: Roma Pritchard on 12-26-2022 MCH (RBC) [Entitic mass] 30.1 pg 24.7-34.3 [facility] MCHC Auto (RBC) [Mass/Vol]Or dered By: Roma Pritchard on 12-26-2022 MCHC (RBC) [Mass/Vol] 32.8 g/dL 32.0-35.[address] [facility] MCV Auto (RBC) [Entitic vol] Ordered By: Roma Pritchard on 12-26-2022 MCV (RBC) [Entitic vol] 91.7 fL 80-100 [facility] Monocytes Auto (Bld) [#/Vol] Ordered By: Roma Pritchard on 12-26-2022 Monocytes (Bld) [#/Vol] 0.5 10*3/uL 0.0-0.8 [facility] Monocytes/100 WBC Auto (Bld) Ordered By: Roma Pritchard on 12-26-2022 Monocytes/100 WBC (Bld) 8.0 % . [facility] Neutrophils Auto (Bld) [#/Vo l]Ordered By: Roma Pritchard on 12-26-2022 Neutrophils (Bld) [#/Vol] 3.8 10*3/uL 1.8-7.7 [facility] Neutrophils/100 WBC Auto (Bl d)Ordered By: Roma Pritchard on 12-26-2022 Neutrophils/100 WBC (Bld) 60.2 % . [facility] Nucleated erythrocytes [Pres ence] in Blood by Automated countOrdered By: Roma Pritchard on 12-26-2022 Nucleated RBC Auto Ql (Bld) 0.0 /100{WBC} 0-0.5 [facility] Platelet mean volume Auto (B ld) [Entitic vol]Ordered By: Roma Pritchard on 12-26-2022 Platelet mean volume (Bld) [Entitic vol] 9.8 fL 6.3-10.7 [facility] Platelets Auto (Bld) [#/Vol] Ordered By: Roma Pritchard on 12-26-2022 Platelets (Bld) [#/Vol] 255 10*3/uL 150-450 [facility] RBC Auto (Bld) [#/Vol]Ordere d By: Roma Pritchard on 12-26-2022 RBC (Bld) [#/Vol] 4.11 10*6/uL 3.60-5.00 [facility] Transferrin [Mass/volume] in Serum or PlasmaOrdered By: Roma Pritchard on 12-26-2022 Transferrin [Mass/Vol] 314 mg/dL 203-362 [facility] Vitamin B12on 12-26-2022 Cobalamin (Vitamin B12) [Mass/Vol] 351 pg/mL Normal 180-914 [facility] Comment on above: Performed By: #### A 1C [facility] eA #### [address] #### NICOTINE #### [facility] , Vitamin B12 ser/plasOrdered By: Roma Pritchard on 12-26-2022 Cobalamin (Vitamin B12) [Mass/Vol] 351 pg/mL 180-914 [facility] Vitamin D 25 Hydroxy Totalon 12-26-2022 Vitamin D 25 Hydroxy Total 38.1 ng/mL Normal 30-100 [facility] Comment on above: Result Comment: AMBIKA MIN D STATUS 25(OH)VITAMIN D RANGE (ng/mL) Deficient <20 Insufficient 20 to <30 Sufficient 30 to 100 Reference: Bro MF,Salo DARNELL, Iqra PAGE, et al. Evaluation,treatment, and prevention of vitamin D deficiency; an Endocrine Society clinical practice guideline. JCEM. 2010; 96(7):1911-30. PERFORMED BY: [place] [address] PATHOLOGIST OIL RECOVERY UNIT OPERATOR CIRA GRAHAM M.D. Performed By: #### A 1C [facility] eA #### [address] #### NICOTINE #### [facility] , Vitamin D+Metabolites [Mass/ volume] in Serum or PlasmaOrdered By: Roma Pritchard on 12-26-2022 Vitamin D+Metabolites [Mass/Vol] 38.1 ng/mL 30-100 [facility] Comment on above: VITAMIN D STATUS 25( OH)VITAMIN D RANGE (ng/mL) Deficient <20 Insufficient 20 to <30Sufficient 30 to 100Reference: Bro MF,Salo NC, Iqra PAGE, et al. Evaluation,treatment, and prevention of vitamin D deficiency; an Endocrine Society clinical practice guideline. JCEM. 2010; 96(7):1911-30. WBC Auto (Bld) [#/Vol]Ordere d By: Roma Pritchard on 12-26-2022 WBC (Bld) [#/Vol] 6.4 10*3/uL 3.8-11.6 [facility] XR hip RT min 2V(w/wo pelvis )*on 12-17-2022 XR hip RT min 2V(w/wo pelvis)* [facility] [address] [place] [address] [place] [address] XRay Report Signed Patient: Teagan Gonsales MR#: [id number] : 1955 Acct:[id number] Age/Sex: 67 / F ADM Date: 12/17/22 [place] [facility] [place]: Type: [facility] Attending Dr: Ar Herman II, MD Copies to: Ar Herman MD Ordering Provider: Ar Herman MD Date of Service: 12/17/22 XR/XR hip RT min 2V(w/wo pelvis)*: Aftercare following joint replacement surgery;Presence of ri RIGHT HIP - 2 views: 1 view pelvis CLINICAL HISTORY: Follow-up right ABBY COMPARISON: Hip series 11/04/2022 FINDINGS: No evidence of hardware complication or acute bony process. Degenerative changes seen involving the visualized lower lumbar spine. Mild degenerative changes left hip. XR/XR hip RT min 2V(w/wo pelvis)* IMPRESSION: NO EVIDENCE OF HARDWARE COMPLICATION.. Impression dictated by: Martin Ruano Jr., D.ONkechi12/17/2022 4:12 PM Dictation Location: [place] [address] Transcribed By: [facility] 12/17/221611 Dictated By: Martin Ruano Jr, DO 12/17/221610 Signed By: 12/17/221611 Normal [facility] XR hip RT min 2V(w/wo pelvis)* [facility] [employer] Other XR hip RT min 2V(w/wo pelvis)* [facility] [place] [employer] Other XR hip RT min 2V(w/wo pelvis)* [address] [facility] [employer] Other XR hip RT min 2V(w/wo pelvis)* [place] [address] [employer] Other XR hip RT min 2V(w/wo pelvis)* XRay Report [employer] Other XR hip RT min 2V(w/wo pelvis)* Signed [employer] Other XR hip RT min 2V(w/wo pelvis)* Patient: Teagan Gonsales MR#: [id number] [employer] Other XR hip RT min 2V(w/wo pelvis)* [id number] [employer] Other XR hip RT min 2V(w/wo pelvis)* : 1955 Acct:[id number] [employer] Other XR hip RT min 2V(w/wo pelvis)* Age/Sex: 67 / F ADM Date: 12/17/22 [employer] Other XR hip RT min 2V(w/wo pelvis)* Loc: [facility] Room: Type: [facility] [employer] Other XR hip RT min 2V(w/wo pelvis)* Attending Dr: Ar Hemran II, MD [employer] Other XR hip RT min 2V(w/wo pelvis)* Copies to: Ar Herman MD [employer] Other XR hip RT min 2V(w/wo pelvis)* Ordering Provider: Ar Herman MD [employer] Other XR hip RT min 2V(w/wo pelvis)* Date of Service: 12/17/22 [employer] Other XR hip RT min 2V(w/wo pelvis)* XR/XR hip RT min 2V(w/wo pelvis)*: Aftercare following joint replacement [employer] Other XR hip RT min 2V(w/wo pelvis)* surgery;Presence of ri [employer] [facility] [employer] Other XR hip RT min 2V(w/wo pelvis)* RIGHT HIP - 2 views: 1 view pelvis [employer] Other XR hip RT min 2V(w/wo pelvis)* CLINICAL HISTORY: Follow-up right ABBY [employer] Other XR hip RT min 2V(w/wo pelvis)* COMPARISON: Hip series 11/04/2022 [employer] Other XR hip RT min 2V(w/wo pelvis)* FINDINGS: No evidence of hardware complication or acute bony process. Degenerative changes seen [employer] Other XR hip RT min 2V(w/wo pelvis)* involving the visualized lower lumbar spine. Mild degenerative changes left hip. [employer] Other XR hip RT min 2V(w/wo pelvis)* XR/XR hip RT min 2V(w/wo pelvis)* [employer] Other XR hip RT min 2V(w/wo pelvis)* IMPRESSION: [employer] Other XR hip RT min 2V(w/wo pelvis)* NO EVIDENCE OF HARDWARE COMPLICATION.. [employer] Other XR hip RT min 2V(w/wo pelvis)* Impression dictated by: Martin Ruano Jr., DNkechiONkechi12/17/2022 4:12 PM [employer] Other XR hip RT min 2V(w/wo pelvis)* Dictation Location: [place] [address] [employer] Other XR hip RT min 2V(w/wo pelvis)* Transcribed By: [facility] 12/17/22 [facility] [employer] Other XR hip RT min 2V(w/wo pelvis)* Dictated By: Martin Ruano Jr DO 12/17/22 [facility] [employer] Other XR hip RT min 2V(w/wo pelvis)* Signed By: [employer] Other XR hip RT min 2V(w/wo pelvis)* 12/17/22 [facility] [employer] Other ABO/Rh Retypeon 11-04-2022 ABO/RH Recheck Result Positive Normal [facility] Comment on above: Result Comment: PERF ORMED BY: [facility] [address] [place] [address] PATHOLOGIST OIL RECOVERY UNIT OPERATOR CIRA GRAHAM M.D. Amphetamine Screen Ql (U)Ord ered By: Moo Saxena on 11-04-2022 Amphetamines Ql (U) Negative Negative [facility] Barbiturates [Presence] in U rine by Screen methodOrdered By: Moo Saxena on 11-04-2022 Barbiturates Screen Ql (U) Negative Negative [facility] Benzodiazepines Screen Ql (U )Ordered By: Moo Saxena on 11-04-2022 Benzodiazepines Ql (U) Negative Negative [facility] Benzoylecgonine [Presence] i n Urine by Screen methodOrdered By: Moo Saxena on 11-04-2022 Benzoylecgonine Screen Ql (U) Negative Negative [facility] Cannabinoids [Presence] in U rine by Screen methodOrdered By: Moo Saxena on 11-04-2022 Cannabinoids Screen Ql (U) Positive Negative [facility] Comment on above: These are unconfirme d results and should not be used for legal purposes. Drug Cut-Off Concentration: AMPH 1000 ng/mL SHIVANI 200 ng/mL TRESA 200 ng/mL COCM 300 ng/mL OP 300 ng/mL PCP 25 ng/mL THC 20 ng/mL Drug Screen,Urineon 11-05-19 23 Amphetamine Screen,Urine Negative Normal Negative [facility] Comment on above: Performed By: #### U RDS ####[address] Barbiturate Screen,Urine Negative Normal Negative [facility] Comment on above: Performed By: #### U RDS ####[address] Benzodiazepines Screen,Urine Negative Normal Negative [facility] Comment on above: Performed By: #### U RDS ####[address] Cannabinoid Screen,Urine Positive High Negative [facility] Comment on above: Result Comment: Thes e are unconfirmed results and should not be used for legal purposes. Drug Cut-Off Concentration: AMPH 1000 ng/mL SHIVANI 200 ng/mL TRESA 200 ng/mL COCM 300 ng/mL OP 300 ng/mL PCP 25 ng/mL THC 20 ng/mL PERFORMED BY: [facility] [address] [facility] [address] PATHOLOGIST OIL RECOVERY UNIT OPERATOR CIRA GRAHAM M.D. Performed By: #### U RDS ####[address] Cocaine Screen,Urine Negative Normal Negative [facility] Comment on above: Performed By: #### U RDS ####[place] [id number] [facility] Opiate Screen,Urine Negative Normal Negative [facility] Comment on above: Performed By: #### U RDS ####[facility] [id number] [place] [address] [facility] Phencyclidine Screen,Urine Negative Normal Negative [facility] Comment on above: Performed By: #### U RDS ####[facility] [id number] [facility] [place] [address] [facility] Rebel 11-04-2022 L ------ Specimen: [id number] Received: 11/04/22 Status: SAIRA Patelamanda Num: [id number] Spec Type: Surgical Subm Dr: Ar Herman MD Tissues: A Femoral Head - Other than Fracture (RT HIP) Procedures: HE/2, Gross/Micro L3, Decalcification Age/ Patient Sex Location Account Attending Physician Teagan Gonsales 67/F OR [id number] Ar Herman MD SPEC NUM: [id number] RECD: 11/04/22 STATUS: SAIRA MCKINNEY NUM: [id number] CARLOS: 11/04/[address] [facility] [address]: Ar Herman MD ENTERED: 11/04/[address] [facility] [address]: SPEC TYPE: Surgical DEPT: S ORDERED: HE/2, Gross/Micro L3, Decalcification ORDERED: HE/2, Gross/Micro L3, Decalcification Pathological Diagnosis Bone and soft tissue, right femoral head, arthroplasty: - Severe degenerative osteoarthritis, displaying severe cortical eburnation and erosion with markedly associated osteophytic degenerations, and the hypertrophic thickening of the congested hip girdle tenosynovial soft tissue, compatible with severe degenerative joint disease of the right hip. Gross only examination Clinical Information DJD right hip Gross Description Received in formalin labeled with the patient's name, date of and bone and tissue is a 5.5 x 4.5 x 4.5 cm femoral head with a detached 8.0 x 7.7 x 3.5 cm aggregate of salas-red bone and soft tissue. The femoral head has a smooth to granular salas-garcía articular surface with eburnation identified. The cut surface is salas-red, trabecular with thinning of the articular cartilage identified and focal cortical cystic change. A gross photo is taken. Gross examination only. (/) CPT Codes 19864 Specimen: [id number] Received: 11/04/22 Status: SAIRA Hank Num: [id number] Spec Type: Surgical Subm Dr: Ar Herman MD Tissues: A Femoral Head - Other than Fracture (RT HIP) Procedures: HE/2, Gross/Micro L3, Decalcification Patient: Teagan Gonsales [id number] (Continued) Specimen: [id number] Received: 11/04/22 (Continued) Signed (signature on file) Sharmin Mcdonald MD 11/05/22 1724 Specimen: [id number] Received: 11/04/22 Status: SAIRA Mckinney Num: [id number] Spec Type: Surgical Subm Dr: Ar Herman MD Tissues: A Femoral Head - Other than Fracture (RT HIP) Procedures: /2, Gross/Micro L3, Decalcification Patient: Teagan Gonsales [id number] (Continued) Specimen: [id number] Received: 11/04/22 (Continued) Isaias Photo Specimen: [id number] Received: 11/04/22 Status: SAIRA Mckinney Num: [id number] Spec Type: Surgical Subm Dr: Ar Herman MD Tissues: A Femoral Head - Other than Fracture (RT HIP) Procedures: HE/2, Gross/Micro L3, Decalcification Patient: Teagan Gonsales [id number] (Continued) Signed (signature on file) Sharmin Mcdonald MD 11/05/22 1724 Normal [facility] Opiates [Presence] in Urine by Screen methodOrdered By: Moo Saxena on 11-04-2022 Opiates Screen Ql (U) Negative Negative [facility] Phencyclidine Screen Ql (U)O rdered By: Moo Saxena on 11-04-2022 Phencyclidine Ql (U) Negative Negative [facility] XR hip RT 1Von 11-04-[address] [place] [address] XRay Report Signed Patient: Teagan Gonsales MR#: [id number] : 1955 Acct:[id number] Age/Sex: 67 / F ADM Date: 11/04/22 Loc: OR Room: Type: [facility] Attending Dr: Ar Herman II, MD Copies to: Ar Herman MD Ordering Provider: Ar Herman MD Date of Service: 11/04/22 XR/XR hip RT 1V: . Intraoperative study. Reason for exam: Right ABBY Findings: 6 images were obtained intraoperatively. Right hip prosthesis was placed Cumulative Air Kerma in mGy: 0.883 mGy XR/XR hip RT 1V Impression: Intraoperative study. Impression dictated by: Martin Ruano Jr. DNkechiONkechi11/04/2022 2:39 PM Dictation Location: [place] [address] Transcribed By: MITCH 11/04/22 0871 Dictated By: Martin Ruano Jr, 11/04/22 1438 Signed By: 11/04/22 1439 [facility] XR low pelvis w/RT x-table h ipon 11-04-2022 XR low pelvis w/RT x-table hip [facility] [address] [place] [address] [place] [address] XRay Report Signed Patient: Teagan Gonsales MR#: [id number] : 1955 Acct:[id number] Age/Sex: 67 / F ADM Date: 11/04/22 Loc: OR Room: Type: [facility] Attending Dr: Ar Herman II, MD Copies to: Ar Herman MD Ordering Provider: Ar Herman MD Date of Service: 11/04/22 XR/XR low pelvis w/RT x-table hip: Total Hip, due in PACU LOW PELVIS WITH RIGHT HIP - 2 views COMPARISON: 03/05/2022 and 11/04/2022 (intraoperative) CLINICAL DATA: Follow-up right hip replacement AP view of the low pelvis and crosstable lateral view of the right hip were obtained. A right hip prosthesis is again visualized. The hardware appears intact and in appropriate position. There are no developing fractures or dislocation. Mild degenerative change is seen at the left hip. There is a small amount of postoperative subcutaneous air near the hip. XR/XR low pelvis w/RT x-table hip IMPRESSION: SATISFACTORY POSTOPERATIVE APPEARANCE OF HIP REPLACEMENT. Impression dictated by: Yadira Augustin M.D.11/04/2022 3:32 PM Dictation Location: [place] [address] Transcribed By: MITCH 11/04/22 153 Dictated By: Yadira Augustin MD 11/04/22 153 Signed By: 11/04/22 153 [facility] Basic Metabolic Panelon 09-24 Anion gap [Moles/Vol] 10.1 mmol/L Normal 6.0-15.0 [facility] Comment on above: Performed By: #### A 1C [facility] #### [address] #### NICOTINE #### [facility] , Calcium [Mass/Vol] 10.4 mg/dL High 8.6-10.3 [facility] Comment on above: Result Comment: PERF ORMED BY: [place] [address] PATHOLOGIST OIL RECOVERY UNIT OPERATOR CIRA GRAHAM M.D. Performed By: #### A 1C WTH eA #### [facility] [address] [place] [address] #### NICOTINE #### [facility] , Chloride [Moles/Vol] 102 mmol/L Normal 98-107 [facility] Comment on above: Performed By: #### A 1C WTH eA #### [address] #### NICOTINE #### [facility] , CO2 [Moles/Vol] 32.1 mmol/L High 21.0-31.0 [facility] Comment on above: Performed By: #### A 1C WT eA #### [facility] [address] [place] [address] [place] #### NICOTINE #### [facility] , Creatinine [Mass/Vol] 0.73 mg/dL Normal 0.60-1.[address] [facility] Comment on above: Performed By: #### A 1C WTH eA #### [facility] [address] [place] [address] [place] #### NICOTINE #### [facility] , GFR/1.73 sq M.predicted MDRD (S/P/Bld) [Vol rate/Area] mL/min/{1.73_m2} Normal [facility] Comment on above: Performed By: #### A 1C WTH eA #### [facility] [address] [place] [address] [place] #### NICOTINE #### [facility] , Glucose [Mass/Vol] 81 mg/dL Normal 70-100 [facility] Comment on above: Result Comment: Brady Glucose Reference Range is dependent on time and content of last meal. Glucose of more than 200 mg/dL in a nonstressed, ambulatory subject supports the diagnosis of Diabetes Mellitus. ADA recommended reference range Performed By: #### A 1C WT eA #### [facility] [address] [place] [address] [place] #### NICOTINE #### [facility] , Potassium [Moles/Vol] 4.2 mmol/L Normal 3.5-5.[address] [facility] Comment on above: Performed By: #### A 1C WT eA #### [place] [address] [place] #### NICOTINE #### [facility] , Sodium [Moles/Vol] 140 mmol/L Normal 136-145 [facility] Comment on above: Performed By: #### A 1C WT eA #### [place] [address] [place] #### NICOTINE #### [facility] , Urea nitrogen [Mass/Vol] 23 mg/dL Normal 7-25 [facility] Comment on above: Performed By: #### A 1C [facility] eA #### [place] [address] [place] #### NICOTINE #### [facility] , Basophils Auto (Bld) [#/Vol] Ordered By: Ar Herman on 10-17-2022 Basophils (Bld) [#/Vol] 0.0 10*3/uL 0.0-0.2 [facility] Basophils/100 WBC Auto (Bld) Ordered By: Ar Herman on 10-17-2022 Basophils/100 WBC (Bld) 0.5 % . [facility] Bilirubin Test strip Ql (U)O rdered By: Ar Herman on 10-17-2022 Bilirubin Ql (U) Negative Negative [facility] Calcium [Mass/volume] in Ser um or PlasmaOrdered By: Ar eHrman on 10-17-2022 Calcium [Mass/Vol] 10.4 mg/dL 8.6-10.3 [facility] Carbon dioxide, total [Moles /volume] in Serum or PlasmaOrdered By: Ar Herman on 10-17-2022 CO2 [Moles/Vol] 32.1 mmol/L 21.0-31.0 [facility] Chloride [Moles/volume] in S bran or PlasmaOrdered By: Ar Herman on 10-17-2022 Chloride [Moles/Vol] 102 mmol/L 98-107 [facility] Color Auto (U)Ordered By: Bernie Herman on 10-17-2022 Color (U) Yellow Yellow [facility] Complete Blood Count Auto Di ffon 10-17-2022 Basophils (Bld) [#/Vol] 0.0 10*3/uL Normal 0.0-0.2 [facility] Comment on above: Result Comment: PERF ORMED BY: [place] [address] PATHOLOGIST OIL RECOVERY UNIT OPERATOR CIRA GRAHAM M.D. Performed By: #### A 1C [facility] eA #### [place] [address] [place] #### NICOTINE #### [facility] , Basophils/100 WBC (Bld) 0.5 % Normal . [facility] Comment on above: Performed By: #### A 1C [facility] eA #### [facility] [facility] [address] [place] [address] [place] #### NICOTINE #### [facility] , Eosinophils (Bld) [#/Vol] 0.1 10*3/uL Normal 0.0-0.45 [facility] Comment on above: Performed By: #### A 1C [facility] eA #### [facility] [address] [place] [address] [place] #### NICOTINE #### [facility] , Eosinophils/100 WBC (Bld) 1.9 % Normal . [facility] Comment on above: Performed By: #### A 1C [facility] eA #### [place] [address] [place] #### NICOTINE #### [facility] , Erythrocyte distribution width (RBC) [Ratio] 14.9 % Normal 11.9-15.3 [facility] Comment on above: Performed By: #### A 1C WTH eA #### [place] [address] [place] #### NICOTINE #### [facility] , Hematocrit (Bld) [Volume fraction] 39.9 % Normal 34.0-46.4 [facility] Comment on above: Performed By: #### A 1C WTH eA #### [place] [address] [place] #### NICOTINE #### [facility] , Hemoglobin (Bld) [Mass/Vol] 13.1 g/dL Normal 11.8-15.4 [facility] Comment on above: Performed By: #### A 1C WTH eA #### [place] [address] [place] #### NICOTINE #### [facility] , Lymphocytes (Bld) [#/Vol] 1.6 10*3/uL Normal 1.00-4.8 [facility] Comment on above: Performed By: #### A 1C WTH eA #### [place] [address] [place] #### NICOTINE #### [facility] , Lymphocytes/100 WBC (Bld) 26.2 % Normal . [facility] Comment on above: Performed By: #### A 1C WTH eA #### [place] [address] [place] #### NICOTINE #### [facility] , MCH (RBC) [Entitic mass] 29.8 pg Normal 24.7-34.3 [facility] Comment on above: Performed By: #### A 1C WTH eA #### [place] [address] [place] #### NICOTINE #### [facility] , MCV (RBC) [Entitic vol] 90.4 fL Normal 80-100 [facility] Comment on above: Performed By: #### A 1C WTH eA #### [place] [address] [place] #### NICOTINE #### [facility] , Mean Corpuscular HGB Conc 32.9 g/dL Normal 32.0-35.0 [facility] Comment on above: Performed By: #### A 1C WTH eA #### [place] [address] [place] #### NICOTINE #### [facility] , Monocytes (Bld) [#/Vol] 0.5 10*3/uL Normal 0.0-0.8 [facility] Comment on above: Performed By: #### A 1C WTH eA #### [place] [address] [place] #### NICOTINE #### [facility] , Monocytes/100 WBC (Bld) 8.4 % Normal . [facility] Comment on above: Performed By: #### A 1C WTH eA #### [place] [address] [place] #### NICOTINE #### [facility] , Neutrophils (Bld) [#/Vol] 3.9 10*3/uL Normal 1.8-7.7 [facility] Comment on above: Performed By: #### A 1C WTH eA #### [facility] [address] [place] [address] [place] #### NICOTINE #### [facility] , Neutrophils/100 WBC (Bld) 63.0 % Normal . [facility] Comment on above: Performed By: #### A 1C WTH eA #### [facility] [address] [place] [address] [place] #### NICOTINE #### [facility] , NRBC% 0.2 /100{WBC} Normal 0-0.5 [facility] Comment on above: Performed By: #### A 1C WT eA #### [facility] [address] [place] [address] #### NICOTINE #### [facility] , Platelet mean volume (Bld) [Entitic vol] 9.9 fL Normal 6.3-10.7 [facility] Comment on above: Performed By: #### A 1C WT eA #### [address] #### NICOTINE #### [facility] , Platelets (Bld) [#/Vol] 245 10*3/uL Normal 150-450 [facility] Comment on above: Performed By: #### A 1C WT eA #### [address] #### NICOTINE #### [facility] , RBC (Bld) [#/Vol] 4.42 10*6/uL Normal 3.60-5.00 [facility] Comment on above: Performed By: #### A 1C WT eA #### [address] #### NICOTINE #### [facility] , WBC (Bld) [#/Vol] 6.2 10*3/uL Normal 3.8-11.6 [facility] Comment on above: Performed By: #### A 1C WT eA #### [facility] [address] [place] [address] [place] #### NICOTINE #### [facility] , Creatinine [Mass/volume] in Serum or PlasmaOrdered By: Ar Herman on 10-17-2022 Creatinine [Mass/Vol] 0.73 mg/dL 0.60-1.[address] [facility] ECG 12 lead ECGon 10-17-2022 ECG [address] [place] [address] Electrocardiograph Report Signed Patient: Teagan Gonsales MR#: [id number] : 1955 Acct:[id number] Age/Sex: 67 / F ADM Date: 10/17/22 Loc: Room: Type: [facility] Attending Dr: Ar Herman II, MD Ordering Provider: Ar Herman MD Date of Service: 10/17/22 ECG/ECG 12 lead ECG: RIGHT TOTAL HIP ARTHROPLASTY Copies to: Test Reason : Blood Pressure : / mmHG Vent. Rate : 065 BPM Atrial Rate : 065 BPM P-R Int : 140 ms QRS Dur : 080 ms QT Int : 420 ms P-R-T Axes : 056 029 011 degrees QTc Int : 436 ms Normal sinus rhythm Possible Left atrial enlargement Borderline ECG When compared with ECG of 26-DEC-2019 10:43, No significant change was found Confirmed by CHRIS GROVES MD (Saroj) on 10/20/2022 6:33:29 PM Referred By: VIRGIL Electronically Signed By:CHRSI GROVES MD Transcribed By: MUS Signed By Chris Groves MD 0 10/20/22 1833 Normal [facility] Eosinophils Auto (Bld) [#/Vo l]Ordered By: Ar Herman on 10-17-2022 Eosinophils (Bld) [#/Vol] 0.1 10*3/uL 0.0-0.45 [facility] Eosinophils/100 WBC Auto (Bl d)Ordered By: Ar Herman on 10-17-2022 Eosinophils/100 WBC (Bld) 1.9 % . [facility] Erythrocyte distribution wid th Auto (RBC) [Ratio]Ordered By: Ar Herman on 10-17-2022 Erythrocyte distribution width (RBC) [Ratio] 14.9 % 11.9-15.3 [facility] Fructosamineon 10-17-2022 Fructosamine 237 umol/L Normal 0-285 [facility] Comment on above: Result Comment: Publ ished reference interval for apparently healthy subjects between age 20 and 60 is 205 - 285 umol/L and in a poorly controlled diabetic population is 228 - 563 umol/L with a mean of 396 umol/L. Performed at: [facility] [address] [id number] [employer] Teacher: Tripp Tejada PhD, Phone: [phone] PERFORMED BY: [place] [address] PATHOLOGIST OIL RECOVERY UNIT OPERATOR CIRA GRAHAM M.D. Performed By: #### A 1C [facility] eA #### [address] #### NICOTINE #### [facility] , Fructosamine [Moles/volume] in Serum or PlasmaOrdered By: Ar Herman on 10-17-2022 Fructosamine [Moles/Vol] 237 umol/L 0-285 [facility] Comment on above: Published reference interval for apparently healthysubjects between age 20 and 60 is 205 - 285 umol/L and in apoorly controlled diabetic population is 228 - 563 umol/Lwith a mean of 396 umol/L.Performed at: [facility] [id number] Director: Tripp Tejada PhD, Phone: [phone] Glucose [Mass/volume] in Ser um or PlasmaOrdered By: Ar Herman on 10-17-2022 Glucose [Mass/Vol] 81 mg/dL 70-100 [facility] Comment on above: ADA recommended refe rence rangeRandom Glucose Reference Range is dependent on time and content of last meal. Glucose of more than 200 mg/dL in a nonstressed, ambulatory subject supports the diagnosis of Diabetes Mellitus. Hematocrit Auto (Bld) [Volum e fraction]Ordered By: Ar Herman on 10-17-2022 Hematocrit (Bld) [Volume fraction] 39.9 % 34.0-46.4 [facility] Hemoglobin [Mass/volume] in BloodOrdered By: Ar Herman on 10-17-2022 Hemoglobin (Bld) [Mass/Vol] 13.1 g/dL 11.8-15.4 [facility] Ketones Auto test strip (U) [Mass/Vol]Ordered By: Ar Herman on 10-17-2022 Ketones (U) [Mass/Vol] Negative Negative [facility] Leukocytes [#/volume] correc dinora for nucleated erythrocytes in Blood by Automated counOrdered By: Ar Herman on 10-17-2022 WBC corrected for nucl RBC Auto (Bld) [#/Vol] 6.2 10*3/uL 3.8-11.6 [facility] Lymphocytes Auto (Bld) [#/Vo l]Ordered By: Ar Herman on 10-17-2022 Lymphocytes (Bld) [#/Vol] 1.6 10*3/uL 1.00-4.8 [facility] Lymphocytes/100 WBC Auto (Bl d)Ordered By: Ar Herman on 10-17-2022 Lymphocytes/100 WBC (Bld) 26.2 % . [facility] MCH Auto (RBC) [Entitic mass ]Ordered By: Ar Herman on 10-17-2022 MCH (RBC) [Entitic mass] 29.8 pg 24.7-34.3 [facility] MCHC Auto (RBC) [Mass/Vol]Or dered By: Ar Herman on 10-17-2022 MCHC (RBC) [Mass/Vol] 32.9 g/dL 32.0-35.[address] [facility] MCV Auto (RBC) [Entitic vol] Ordered By: Ar Herman on 10-17-2022 MCV (RBC) [Entitic vol] 90.4 fL 80-100 [facility] Monocytes Auto (Bld) [#/Vol] Ordered By: Ar Herman on 10-17-2022 Monocytes (Bld) [#/Vol] 0.5 10*3/uL 0.0-0.8 [facility] Monocytes/100 WBC Auto (Bld) Ordered By: Ar Herman on 10-17-2022 Monocytes/100 WBC (Bld) 8.4 % . [facility] Neutrophils Auto (Bld) [#/Vo l]Ordered By: Ar Herman on 10-17-2022 Neutrophils (Bld) [#/Vol] 3.9 10*3/uL 1.8-7.7 [facility] Neutrophils/100 WBC Auto (Bl d)Ordered By: Ar Herman on 10-17-2022 Neutrophils/100 WBC (Bld) 63.0 % . [facility] Nitrite Test strip Ql (U)Ord ered By: Ar Herman on 10-17-2022 Nitrite Ql (U) Negative Negative [facility] No Panel InformationOrdered By: Ar Herman on 10-17-2022 Estimated GFR (CKD-EPI) > 60.0 mL/Min [facility] Creatinine Clearance (Chem N/A [facility] Nucleated erythrocytes [Pres ence] in Blood by Automated countOrdered By: Ar Herman on 10-17-2022 Nucleated RBC Auto Ql (Bld) 0.2 /100{WBC} 0-0.5 [facility] PST Type and Screenon 2022 ABO and Rh group Nom (Bld) Blood group A Rh(D) positive Normal [facility] Comment on above: Order Comment: Date of Surgery: [id number] Platelet mean volume Auto (B ld) [Entitic vol]Ordered By: Ar Herman on 10-17-2022 Platelet mean volume (Bld) [Entitic vol] 9.9 fL 6.3-10.7 [facility] Platelets Auto (Bld) [#/Vol] Ordered By: Ar Herman on 10-17-2022 Platelets (Bld) [#/Vol] 245 10*3/uL 150-450 [facility] Potassium [Moles/volume] in Serum or PlasmaOrdered By: Ar Herman on 10-17-2022 Potassium [Moles/Vol] 4.2 mmol/L 3.5-5.[address] [facility] Protein Auto test strip (U) [Mass/Vol]Ordered By: Ar Herman on 10-17-2022 Protein (U) [Mass/Vol] Negative Negative [facility] RBC Auto (Bld) [#/Vol]Ordere d By: Ar Herman on 10-17-2022 RBC (Bld) [#/Vol] 4.42 10*6/uL 3.60-5.00 [facility] Serum or plasma anion gap de terminationOrdered By: Ar Herman on 10-17-2022 Anion gap [Moles/Vol] 10.1 mmol/L 6.0-15.0 [facility] Sodium [Moles/volume] in Ser um or PlasmaOrdered By: Ar Herman on 10-17-2022 Sodium [Moles/Vol] 140 mmol/L 136-145 [facility] Specific gravity Auto test s trip (U) [Rel density]Ordered By: Ar Herman on 10-17-2022 Specific gravity (U) [Rel density] 1.018 1.001-1.03 0 [facility] Urea nitrogen [Mass/volume] in Serum or PlasmaOrdered By: Ar Herman on 10-17-2022 Urea nitrogen [Mass/Vol] 23 mg/dL 09-16 [facility] Urinalysison 10-17-2022 Appearance (U) Clear Normal Clear [facility] Comment on above: Order Comment: Name Collection Type:: Clean-Voided Midstream Performed By: #### U A #### [facility] [address] [place] [address] [place] Bilirubin,Urine Negative Normal Negative [facility] Comment on above: Order Comment: Name Collection Type:: Clean-Voided Midstream Performed By: #### U A #### [facility] [address] [place] [id number] [place] Color (U) Yellow Normal Yellow [facility] Comment on above: Order Comment: Name Collection Type:: Clean-Voided Midstream Performed By: #### U A #### [facility] [address] [place] [id number] [place] Glucose Ql (U) Normal Normal Normal [facility] Comment on above: Order Comment: Name Collection Type:: Clean-Voided Midstream Performed By: #### U A #### [facility] [address] [place] [id number] [place] Ketones Ql (U) Negative Normal Negative [facility] Comment on above: Order Comment: Name Collection Type:: Clean-Voided Midstream Performed By: #### U A #### [address] Leukocyte esterase Test strip Ql (U) Negative Normal Negative [facility] Comment on above: Order Comment: Name Collection Type:: Clean-Voided Midstream Performed By: #### U A #### [address] Nitrite,Urine Negative Normal Negative [facility] Comment on above: Order Comment: Name Collection Type:: Clean-Voided Midstream Performed By: #### U A #### [address] Occult Blood,Urine Negative Normal Negative [facility] Comment on above: Order Comment: Name Collection Type:: Clean-Voided Midstream Result Comment: PERF ORMED BY: [place] [address] PATHOLOGIST OIL RECOVERY UNIT OPERATOR CIRA GRAHAM M.D. Performed By: #### U A #### [address] pH (U) 6.5 [pH] Normal 5.0-9.0 [facility] Comment on above: Order Comment: Name Collection Type:: Clean-Voided Midstream Performed By: #### U A #### [address] Protein,Urine Negative Normal Negative [facility] Comment on above: Order Comment: Name Collection Type:: Clean-Voided Midstream Performed By: #### U A #### [address] Specificy [place],Urine 1.018 Normal 1.001-1.03 0 [facility] Comment on above: Order Comment: Name Collection Type:: Clean-Voided Midstream Performed By: #### U A #### [address] Urobilinogen,Urine Normal Normal Normal [facility] Comment on above: Order Comment: Name Collection Type:: Clean-Voided Midstream Performed By: #### U A #### [address] [place] [address] [place] Urine clarity by refractomet ry automatedOrdered By: Ar Herman on 10-17-2022 Clarity Refractometry automated (U) Clear Clear [facility] Urine glucose measurement by automated test strip (mass/volume)Ordered By: Ar Herman on 10-17-2022 Glucose Auto test strip (U) [Mass/Vol] Normal mg/dL Normal [facility] Urine hemoglobin detection b y automated test stripOrdered By: Ar Herman on 10-17-2022 Hemoglobin Auto test strip Ql (U) Negative Negative [facility] Urine leukocyte esterase det ection by automated test stripOrdered By: Ar Herman on 10-17-2022 Leukocyte esterase Auto test strip Ql (U) Negative Negative [facility] Urobilinogen Auto test strip (U) [Mass/Vol]Ordered By: Ar Herman on 10-17-2022 Urobilinogen (U) [Mass/Vol] Normal mg/dL Normal [facility] WBC Auto (Bld) [#/Vol]Ordere d By: Ar Herman on 10-17-2022 WBC (Bld) [#/Vol] 6.2 10*3/uL 3.8-11.6 [facility] pH Auto test strip (U)Ordere d By: Ar Herman on 10-17-2022 pH (U) 6.5 [pH] 5.0-9.0 [facility] A1C with Estimated Average G luon 09-15-2022 Glucose [Mass/Vol] 123 mg/dL Normal [facility] Comment on above: Order Comment: 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;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 Performed By: #### A 1C WTH eA #### [facility] [address] [place] [address] [place] #### NICOTINE #### [facility] , HbA1c (Bld) [Mass fraction] 5.9 % High 4.3-5.6 [facility] Comment on above: Order Comment: 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;Other nursing home (current) drug therap Result Comment: Incr eased risk for diabetes: 5.7 - 6.4 diabetes: >6.4 glycemic control for adults with diabetes: <7.0 Performed By: #### A 1C WT eA #### [facility] [address] #### NICOTINE #### [facility] , Alanine aminotransferase [En zymatic activity/volume] in Serum or PlasmaOrdered By: Roma Pritchard on 09-15-2022 ALT [Catalytic activity/Vol] 17 U/L 7-52 [facility] Albumin [Mass/volume] in Ser um or Plasma by Bromocresol green (BCG) dye binding methoOrdered By: Roma Pritchard on 09-15-2022 Albumin BCG dye [Mass/Vol] 4.4 g/dL 3.5-5.7 [facility] Alkaline phosphatase [Enzyma tic activity/volume] in Serum or PlasmaOrdered By: Roma Pritchard on 09-15-2022 ALP [Catalytic activity/Vol] 69 U/L 34-104 [facility] Aspartate aminotransferase [ Enzymatic activity/volume] in Serum or PlasmaOrdered By: Roma Pritchard on 09-15-2022 AST [Catalytic activity/Vol] 19 U/L 13-39 [facility] Basophils Auto (Bld) [#/Vol] Ordered By: Roma Pritchard on 09-15-2022 Basophils (Bld) [#/Vol] 0.0 10*3/uL 0.0-0.2 [facility] Basophils/100 WBC Auto (Bld) Ordered By: Roma Pritchard on 09-15-2022 Basophils/100 WBC (Bld) 0.6 % . [facility] Bilirubin.total [Mass/volume ] in Serum or PlasmaOrdered By: Roma Pritchard on 09-15-2022 Bilirubin [Mass/Vol] 0.8 mg/dL 0.3-1.0 [facility] Calcium [Mass/volume] in Ser um or PlasmaOrdered By: Roma Pritchard on 09-15-2022 Calcium [Mass/Vol] 9.6 mg/dL 8.6-10.3 [facility] Carbon dioxide, total [Moles /volume] in Serum or PlasmaOrdered By: Roma Pritchard on 09-15-2022 CO2 [Moles/Vol] 29.1 mmol/L 21.0-31.0 [facility] Chloride [Moles/volume] in S bran or PlasmaOrdered By: Roma Pritchard on 09-15-2022 Chloride [Moles/Vol] 105 mmol/L 98-107 [facility] Cholesterol [Mass/volume] in Serum or PlasmaOrdered By: Roma Pritchard on 09-15-2022 Cholesterol [Mass/Vol] 162 mg/dL 140-200 [facility] Comment on above: Chol less than 200 m g/dl low riskChol 201-239 mg/dl borderline riskChol 240 mg/dl and greater high risk Cholesterol in LDL Calc [Mas s/Vol]Ordered By: Roma Pritchard on 09-15-2022 Cholesterol in LDL [Mass/Vol] 66 mg/dL 0-100 [facility] Comment on above: LDL ATP III CLASSIFI CATIONLDL less than 100 mg/dL OptimalLDL 100-129 mg/dL Near or above optimalLDL 130-159 mg/dL Borderline highLDL 160-189 mg/dL HighLDL greater than 189 mg/dL Very high Cholesterol in VLDL Calc [Ma ss/Vol]Ordered By: Roma Pritchard on 09-15-2022 Cholesterol in VLDL [Mass/Vol] 32 mg/dL [facility] Complete Blood Count Auto Di ffon 09-15-2022 Basophils (Bld) [#/Vol] 0.0 10*3/uL Normal 0.0-0.2 [facility] Comment on above: Order Comment: 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;Other nursing home (current) drug therap Result Comment: PERF ORMED BY: [place] [address] PATHOLOGIST OIL RECOVERY UNIT OPERATOR CIRA GRAHAM M.D. Performed By: #### A 1C WT eA #### [place] [address] [place] #### NICOTINE #### [facility] , Basophils/100 WBC (Bld) 0.6 % Normal . [facility] Comment on above: Order Comment: 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;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 Performed By: #### A 1C WT eA #### [place] [address] [place] #### NICOTINE #### [facility] , Eosinophils (Bld) [#/Vol] 0.1 10*3/uL Normal 0.0-0.45 [facility] Comment on above: Order Comment: 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;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 Performed By: #### A [facility] eA #### [place] [address] [place] #### NICOTINE #### [facility] , Eosinophils/100 WBC (Bld) 2.1 % Normal . [facility] Comment on above: Order Comment: 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;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 Performed By: #### A 1C [facility] eA #### [place] [address] [place] #### NICOTINE #### [facility] , Erythrocyte distribution width (RBC) [Ratio] 14.2 % Normal 11.9-15.3 [facility] Comment on above: Order Comment: 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;Other nursing home (current) drug therap Performed By: #### A 1C [facility] eA #### [place] [address] [place] #### NICOTINE #### [facility] , Hematocrit (Bld) [Volume fraction] 35.6 % Normal 34.0-46.4 [facility] Comment on above: Order Comment: 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;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 Performed By: #### A 1C WT eA #### [place] [address] [place] #### NICOTINE #### [facility] , Hemoglobin (Bld) [Mass/Vol] 11.7 g/dL Low 11.8-15.4 [facility] Comment on above: Order Comment: 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;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 Performed By: #### A 1C WT eA #### [place] [address] [place] #### NICOTINE #### [facility] , Lymphocytes (Bld) [#/Vol] 1.2 10*3/uL Normal 1.00-4.8 [facility] Comment on above: Order Comment: 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;Other nursing home (current) drug therap Performed By: #### A 1C [facility] eA #### [place] [address] [place] #### NICOTINE #### [facility] , Lymphocytes/100 WBC (Bld) 19.7 % Normal . [facility] Comment on above: Order Comment: 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;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 Performed By: #### A 1C [facility] eA #### [place] [address] [place] #### NICOTINE #### [facility] , MCH (RBC) [Entitic mass] 29.5 pg Normal 24.7-34.3 [facility] Comment on above: Order Comment: 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;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 Performed By: #### A 1C WT eA #### [place] [address] [place] #### NICOTINE #### [facility] , MCV (RBC) [Entitic vol] 89.7 fL Normal 80-100 [facility] Comment on above: Order Comment: 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;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 Performed By: #### A 1C WT eA #### [place] [address] [place] #### NICOTINE #### [facility] , Mean Corpuscular HGB Conc 32.8 g/dL Normal 32.0-35.0 [facility] Comment on above: Order Comment: 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;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 Performed By: #### A 1C WT eA #### [place] [address] [place] #### NICOTINE #### [facility] , Monocytes (Bld) [#/Vol] 0.4 10*3/uL Normal 0.0-0.8 [facility] Comment on above: Order Comment: 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;Other nursing home (current) drug therap Performed By: #### A 1C WT eA #### [place] [address] [place] #### NICOTINE #### [facility] , Monocytes/100 WBC (Bld) 7.1 % Normal . [facility] Comment on above: Order Comment: 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;Other nursing home (current) drug therap Performed By: #### A 1C [facility] eA #### [place] [address] [place] #### NICOTINE #### [facility] , Neutrophils (Bld) [#/Vol] 4.3 10*3/uL Normal 1.8-7.7 [facility] Comment on above: Order Comment: 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;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 Performed By: #### A 1C WT eA #### [place] [address] [place] #### NICOTINE #### [facility] , Neutrophils/100 WBC (Bld) 70.5 % Normal . [facility] Comment on above: Order Comment: 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;Other nursing home (current) drug therap Performed By: #### A 1C WT eA #### [place] [id number] [place] #### NICOTINE #### [facility] , NRBC% 0.2 /100{WBC} Normal 0-0.5 [facility] Comment on above: Order Comment: 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;Other nursing home (current) drug therap Performed By: #### A 1C WT eA #### [place] [address] [place] #### NICOTINE #### [facility] , Platelet mean volume (Bld) [Entitic vol] 9.9 fL Normal 6.3-10.7 [facility] Comment on above: Order Comment: 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;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 Performed By: #### A 1C WT eA #### [address] #### NICOTINE #### [facility] , Platelets (Bld) [#/Vol] 252 10*3/uL Normal 150-450 [facility] Comment on above: Order Comment: 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;Other nursing home (current) drug therap Performed By: #### A 1C [facility] eA #### [place] [address] [place] #### NICOTINE #### [facility] , RBC (Bld) [#/Vol] 3.96 10*6/uL Normal 3.60-5.00 [facility] Comment on above: Order Comment: 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;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 Performed By: #### A 1C WT eA #### [facility] [facility] [address] [place] [address] [place] #### NICOTINE #### [facility] , WBC (Bld) [#/Vol] 6.2 10*3/uL Normal 3.8-11.6 [facility] Comment on above: Order Comment: 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;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 Performed By: #### A 1C [facility] eA #### [place] [address] [place] #### NICOTINE #### [facility] , Comprehensive Metabolic Pane rbeel 09-15-2022 Albumin [Mass/Vol] 4.4 g/dL Normal 3.5-5.7 [facility] Comment on above: Order Comment: 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;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 Performed By: #### A 1C [facility] eA #### [place] [address] [place] #### NICOTINE #### [facility] , Albumin/Globulin [Mass ratio] 1.8 {ratio} Normal [facility] Comment on above: Order Comment: 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;Other nursing home (current) drug therap Performed By: #### A 1C [facility] eA #### [place] [address] [place] #### NICOTINE #### [facility] , ALP [Catalytic activity/Vol] 69 U/L Normal 34-104 [facility] Comment on above: Order Comment: 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;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 Performed By: #### A 1C [facility] eA #### [place] [address] [place] #### NICOTINE #### [facility] , ALT [Catalytic activity/Vol] 17 U/L Normal 7-52 [facility] Comment on above: Order Comment: 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;Other nursing home (current) drug therap Performed By: #### A 1C [facility] eA #### [facility] [address] [place] [address] [place] #### NICOTINE #### [facility] , Anion gap [Moles/Vol] 10.8 mmol/L Normal 6.0-15.0 [facility] Comment on above: Order Comment: 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;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 Performed By: #### A 1C [facility] eA #### [place] [address] [place] #### NICOTINE #### [facility] , AST [Catalytic activity/Vol] 19 U/L Normal 13-39 [facility] Comment on above: Order Comment: 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;Other nursing home (current) drug therap Performed By: #### A 1C [facility] eA #### [place] [address] [place] #### NICOTINE #### [facility] , Bilirubin [Mass/Vol] 0.8 mg/dL Normal 0.3-1.0 [facility] Comment on above: Order Comment: 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;Other nursing home (current) drug therap Performed By: #### A [facility] eA #### [place] [address] [place] #### NICOTINE #### [facility] , Calcium [Mass/Vol] 9.6 mg/dL Normal 8.6-10.3 [facility] Comment on above: Order Comment: 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;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 Performed By: #### A 1C [facility] eA #### [place] [address] [place] #### NICOTINE #### [facility] , Chloride [Moles/Vol] 105 mmol/L Normal 98-107 [facility] Comment on above: Order Comment: 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 Comment on above: Order Comment: 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;Other nursing home (current) drug therap Performed By: #### A 1C WT eA #### [place] [address] [place] #### NICOTINE #### [facility] , GFR/1.73 sq M.predicted MDRD (S/P/Bld) [Vol rate/Area] mL/min/{1.73_m2} [facility] Comment on above: Order Comment: 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;Other nursing home (current) drug therap Performed By: #### A 1C WT eA #### [place] [address] [place] #### NICOTINE #### [facility] , Globulin (S) [Mass/Vol] 2.4 g/dL [facility] Comment on above: Order Comment: 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;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 Glucose of more than 200 mg/dL in a nonstressed, ambulatory subject supports the diagnosis of Diabetes Mellitus. ADA recommended reference range Performed By: #### A 1C WT eA #### [address] [place] [address] [place] #### NICOTINE #### [facility] , Potassium [Moles/Vol] 3.9 mmol/L Normal 3.5-5.[address] 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 Performed By: #### A 1C WT eA #### [place] [address] [place] #### NICOTINE #### [facility] , Sodium [Moles/Vol] 141 mmol/L Normal 136-145 [facility] Comment on above: Order Comment: 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;Other nursing home (current) drug therap Performed By: #### A 1C WT eA #### [place] [address] [place] #### NICOTINE #### [facility] , Urea nitrogen [Mass/Vol] 23 mg/dL Normal 7-25 [facility] Comment on above: Order Comment: 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;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 [facility] Comment on above: This test was develo ped and its performance characteristicsdetermined by [facility]. It has not been cleared orapproved by the Food and Drug Administration.Cotinine levels greater than 20.0 are consistent with theuse of tobacco or tobacco cessation products.Performed at: [facility] [address] [id number] Director: Keshia Duron MD, Phone: [phone] Creatinine [Mass/volume] in Serum or PlasmaOrdered By: Roma Pritchard on 09-15-2022 Creatinine [Mass/Vol] 0.72 mg/dL 0.60-1.[address] [facility] Eosinophils Auto (Bld) [#/Vo l]Ordered By: Roma Pritchard on 09-15-2022 Eosinophils (Bld) [#/Vol] 0.1 10*3/uL 0.0-0.45 [facility] Eosinophils/100 WBC Auto (Bl d)Ordered By: Roma Pritchard on 09-15-2022 Eosinophils/100 WBC (Bld) 2.1 % . [facility] Erythrocyte distribution wid th Auto (RBC) [Ratio]Ordered By: Roma Pritchard on 09-15-2022 Erythrocyte distribution width (RBC) [Ratio] 14.2 % 11.9-15.3 [facility] Folateon 09-15-2022 Folate 16.7 ng/mL Normal >5.9 [facility] Comment on above: Result Comment: Ирина te reference range: >5.9 ng/ml The WHO technical consultation on folate and vitamin b12 deficiencies has determined that folate concentrations less than 4 ng/ml are considered deficient. PERFORMED BY: [place] [address] PATHOLOGIST OIL RECOVERY UNIT OPERATOR CIRA GRAHAM M.D. Performed By: #### F OL, LIPID, B12 #### [address] Folate [Mass/volume] in Seru m or PlasmaOrdered By: Roma Pritchard on 09-15-2022 Folate [Mass/Vol] 16.7 ng/mL >5.9 [facility] Comment on above: Folate reference ran ge: >5.9 ng/mlThe WHO technical consultation on folate and vitamin [id number] has determined that folate concentrations lessthan 4 ng/ml are considered deficient. Globulin Calc (S) [Mass/Vol] Ordered By: Roma Pritchard on 09-15-2022 Globulin (S) [Mass/Vol] 2.4 g/dL [facility] Glucose [Mass/volume] in Ser um or PlasmaOrdered By: Roma Pritchard on 09-15-2022 Glucose [Mass/Vol] 98 mg/dL 70-100 [facility] Comment on above: ADA recommended refe rence rangeRandom Glucose Reference Range is dependent on time and content of last meal. Glucose of more than 200 mg/dL in a nonstressed, ambulatory subject supports the diagnosis of Diabetes Mellitus. Glucose mean value [Mass/vol ume] in Blood Estimated from glycated hemoglobinOrdered By: Roma Pritchard on 09-15-2022 Average glucose Estimated from glycated hemoglobin (Bld) [Mass/Vol] 123 mg/dL [facility] Hematocrit Auto (Bld) [Volum e fraction]Ordered By: Roma Pritchard on 09-15-2022 Hematocrit (Bld) [Volume fraction] 35.6 % 34.0-46.4 [facility] Hemoglobin A1c percentageOrd ered By: Roma Pritchard on 09-15-2022 HbA1c (Bld) [Mass fraction] 5.9 % 4.3-5.6 [facility] Comment on above: Increased risk for d iabetes: 5.7 - 6.4diabetes: >6.4glycemic control for adults with diabetes: <7.0 Hemoglobin [Mass/volume] in BloodOrdered By: Roma Pritchard on 09-15-2022 Hemoglobin (Bld) [Mass/Vol] 11.7 g/dL 11.8-15.4 [facility] Leukocytes [#/volume] correc dinora for nucleated erythrocytes in Blood by Automated counOrdered By: Roma Pritchard on 09-15-2022 WBC corrected for nucl RBC Auto (Bld) [#/Vol] 6.2 10*3/uL 3.8-11.6 [facility] Lipid Panelon 09-15-2022 Cholesterol [Mass/Vol] 162 mg/dL Normal 140-200 [facility] Comment on above: Result Comment: Chol less than 200 mg/dl low risk Chol 201-239 mg/dl borderline risk Chol 240 mg/dl and greater high risk Performed By: #### F OL, LIPID, B12 #### [facility] [address] Cholesterol in HDL [Mass/Vol] 64 mg/dL Normal 23-92 [facility] Comment on above: Result Comment: HDL CHOL ATP-III CLASSIFICATION Cardiovascular Risk HDL > or equal to 60 mg/dL LOW HDL < 40 mg/dL HIGH Performed By: #### F OL, LIPID, B12 #### [facility] [address] Cholesterol.total/Cho lesterol in HDL [Mass ratio] 2.5 {ratio} Normal <5.0 [facility] Comment on above: Performed By: #### F OL, LIPID, B12 #### [facility] [address] LDL Cholesterol,Calculate d 66 mg/dL Normal 0-100 [facility] Comment on above: Result Comment: LDL ATP III CLASSIFICATION LDL less than 100 mg/dL Optimal LDL 100-129 mg/dL Near or above optimal LDL 130-159 mg/dL Borderline high LDL 160-189 mg/dL High LDL greater than 189 mg/dL Very high Performed By: #### F OL, LIPID, B12 #### [facility] [address] Triglyceride w/Reflex 162 mg/dL High 0-[address] [facility] Comment on above: Result Comment: TRIG ATP III CLASSIFICATION TRIG less than 150 mg/dL Normal TRIG 150-199 mg/dL Borderline high TRIG 200-500 mg/dL High TRIG greater than 500 mg/dL Very high Standard traceable to the Center for Disease Conrtrol and Prevention (CDC) test method. Performed By: #### F OL, LIPID, B12 #### [facility] [address] VLDL CHOLESTEROL 32 mg/dL Normal [facility] Comment on above: Performed By: #### F OL, LIPID, B12 #### [facility] [address] Lymphocytes Auto (Bld) [#/Vo l]Ordered By: Roma Pritchard on 09-15-2022 Lymphocytes (Bld) [#/Vol] 1.2 10*3/uL 1.00-4.8 [facility] Lymphocytes/100 WBC Auto (Bl d)Ordered By: Roma Pritchard on 09-15-2022 Lymphocytes/100 WBC (Bld) 19.7 % . [facility] MCH Auto (RBC) [Entitic mass ]Ordered By: Roma Pritchard on 09-15-2022 MCH (RBC) [Entitic mass] 29.5 pg 24.7-34.3 [facility] MCHC Auto (RBC) [Mass/Vol]Or dered By: Roma Pritchard on 09-15-2022 MCHC (RBC) [Mass/Vol] 32.8 g/dL 32.0-35.[address] [facility] MCV Auto (RBC) [Entitic vol] Ordered By: Roma Pritchard on 09-15-2022 MCV (RBC) [Entitic vol] 89.7 fL 80-100 [facility] Monocytes Auto (Bld) [#/Vol] Ordered By: Roma Pritchard on 09-15-2022 Monocytes (Bld) [#/Vol] 0.4 10*3/uL 0.0-0.8 [facility] Monocytes/100 WBC Auto (Bld) Ordered By: Roma Pritchard on 09-15-2022 Monocytes/100 WBC (Bld) 7.1 % . [facility] Neutrophils Auto (Bld) [#/Vo l]Ordered By: Roma Pritchard on 09-15-2022 Neutrophils (Bld) [#/Vol] 4.3 10*3/uL 1.8-7.7 [facility] Neutrophils/100 WBC Auto (Bl d)Ordered By: Roma Pritchard on 09-15-2022 Neutrophils/100 WBC (Bld) 70.5 % . [facility] Nicotine [Mass/volume] in Se rum or PlasmaOrdered By: Ar Herman on 09-15-2022 Nicotine [Mass/Vol] <1.0 ng/mL . [facility] Comment on above: This test was develo ped and its performance characteristicsdetermined by [facility]. It has not been cleared orapproved by the Food and Drug Administration.Nicotine levels greater than 2.0 are consistent with theuse of tobacco or tobacco cessation products. Nicotine/Cotinine Bloodon Cotinine, Blood <1.0 Normal . 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 It has not been cleared or approved by the Food and Drug Administration. Cotinine levels greater than 20.0 are consistent with the use of tobacco or tobacco cessation products. Performed at: [address] [id number] [employer] Teacher: Keshia Duron MD, Phone: [phone] PERFORMED BY: [place] [address] PATHOLOGIST OIL RECOVERY UNIT OPERATOR CIRA GRAHAM M.D. Performed By: #### A 1C [facility] eA #### [address] #### NICOTINE #### [facility] , Nicotine, Blood <1.0 Normal . [facility] Comment on above: Order Comment: 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;Other nursing home (current) drug therap Result Comment: This test was developed and its performance characteristics determined by [facility]. It has not been cleared or approved by the Food and Drug Administration. Nicotine levels greater than 2.0 are consistent with the use of tobacco or tobacco cessation products. Performed By: #### A 1C [facility] eA #### [facility] [address] [place] [address] [place] #### NICOTINE #### [facility] , No Panel InformationOrdered By: Rmoa Pritchard on 09-15-2022 Estimated GFR (CKD-EPI) > 60.0 mL/Min [facility] Creatinine Clearance (Chem N/A [facility] Nucleated erythrocytes [Pres ence] in Blood by Automated countOrdered By: Roma Pritchard on 09-15-2022 Nucleated RBC Auto Ql (Bld) 0.2 /100{WBC} 0-0.5 [facility] Platelet mean volume Auto (B ld) [Entitic vol]Ordered By: Roma Pritchard on 09-15-2022 Platelet mean volume (Bld) [Entitic vol] 9.9 fL 6.3-10.7 [facility] Platelets Auto (Bld) [#/Vol] Ordered By: Roma Prtichard on 09-15-2022 Platelets (Bld) [#/Vol] 252 10*3/uL 150-450 [facility] Potassium [Moles/volume] in Serum or PlasmaOrdered By: Roma Pritchard on 09-15-2022 Potassium [Moles/Vol] 3.9 mmol/L 3.5-5.[address] [facility] Protein [Mass/volume] in Ser um or PlasmaOrdered By: Roma Pritchard on 09-15-2022 Protein [Mass/Vol] 6.8 g/dL 6.4-8.9 [facility] RBC Auto (Bld) [#/Vol]Ordere d By: Roma Pritchard on 09-15-2022 RBC (Bld) [#/Vol] 3.96 10*6/uL 3.60-5.00 [facility] Serum or plasma albumin/glob ulin mass ratioOrdered By: Roma Pritchard on 09-15-2022 Albumin/Globulin [Mass ratio] 1.8 {ratio} [facility] Serum or plasma anion gap de terminationOrdered By: Roma Pritchard on 09-15-2022 Anion gap [Moles/Vol] 10.8 mmol/L 6.0-15.0 [facility] Serum or plasma high density lipoprotein (HDL) cholesterol measurementOrdered By: Roma Pritchard on 09-15-2022 Cholesterol in HDL [Mass/Vol] 64 mg/dL 23-92 [facility] Comment on above: HDL CHOL ATP-III CLA SSIFICATION Cardiovascular RiskHDL > or equal to 60 mg/dL LOWHDL < 40 mg/dL HIGH Serum or plasma total choles terol/high density lipoprotein (HDL) cholesterol mass ratOrdered By: Roma Pritchard on 09-15-2022 Cholesterol.total/Cho lesterol in HDL [Mass ratio] 2.5 {ratio} <5.0 [facility] Sodium [Moles/volume] in Ser um or PlasmaOrdered By: Roma Pritchard on 09-15-2022 Sodium [Moles/Vol] 141 mmol/L 136-145 [facility] Triglyceride [Mass/volume] i n Serum or PlasmaOrdered By: Roma Pritchard on 09-15-2022 Triglyceride [Mass/Vol] 162 mg/dL 0-149 [facility] Comment on above: TRIG ATP III CLASSIF ICATIONTRIG less than 150 mg/dL NormalTRIG 150-199 mg/dL Borderline highTRIG 200-500 mg/dL High TRIG greater than 500 mg/dL Very highStandard traceable to the Center for Disease Conrtrol and Prevention (CDC) test method. Urea nitrogen [Mass/volume] in Serum or PlasmaOrdered By: Roma Pritchard on 09-15-2022 Urea nitrogen [Mass/Vol] 23 mg/dL 7-25 [facility] Vitamin B12on 09-15-2022 Cobalamin (Vitamin B12) [Mass/Vol] 409 pg/mL Normal 180-914 [facility] Comment on above: Performed By: #### F OL, LIPID, B12 #### [facility] [address] [place] [address] Vitamin B12 ser/plasOrdered By: Roma Pritchard on 09-15-2022 Cobalamin (Vitamin B12) [Mass/Vol] 409 pg/mL 180-914 [facility] Vitamin D 25 Hydroxy Totalon 09-15-2022 Vitamin D 25 Hydroxy Total 28.1 ng/mL Low 30-100 [facility] Comment on above: Order Comment: 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;Other nursing home (current) drug therap Result Comment: AMBIKA MIN D STATUS 25([place])VITAMIN D RANGE (ng/mL) Deficient <20 Insufficient 20 to <30 Sufficient 30 to 100 Reference: Bro MF,Salo NC, Iqra PAGE, et al. Evaluation,treatment, and prevention of vitamin D deficiency; an Endocrine Society clinical practice guideline. JCEM. 2010; 96(7):1911-30. PERFORMED BY: [place] [address] PATHOLOGIST OIL RECOVERY UNIT OPERATOR CIRA GRAHAM M.D. Performed By: #### A 1C [facility] #### [facility] [address] [place] [address] #### NICOTINE #### [facility] , Vitamin D+Metabolites [Mass/ volume] in Serum or PlasmaOrdered By: Roma Pritchard on 09-15-2022 Vitamin D+Metabolites [Mass/Vol] 28.1 ng/mL 30-100 [facility] Comment on above: VITAMIN D STATUS 25( [place])VITAMIN D RANGE (ng/mL) Deficient <20 Insufficient 20 to <30Sufficient 30 to 100Reference: Bro MF,Salo DARNELL, Iqra PAGE, et al. Evaluation,treatment, and prevention of vitamin D deficiency; an Endocrine Society clinical practice guideline. JCEM. 2010; 96(7):1911-30. WBC Auto (Bld) [#/Vol]Ordere d By: Roma Pritchard on 09-15-2022 WBC (Bld) [#/Vol] 6.2 10*3/uL 3.8-11.6 [facility] US THYROIDon 04-15-2022 US THYROID EXAMINATION: US THYR OID HISTORY: Dysphagia COMPARISON: No relevant comparison available. FINDINGS: RIGHT LOBE: Normal size and echotexture. Lobe size: 5.3 x 1.3 x 1.1 cm LEFT LOBE: Contains an incidental 7 x 4 x 4 mm TR 3 nodule within inferior pole. Lobe size: 3.8 x 0.9 x 1.0 cm ISTHMUS: Normal size and echotexture. Thickness: 4 mm IMPRESSION: 1. Nonspecific, likely incidental, 7 mm TR 3 nodule within left lobe. No additional follow-up recommended at this time. TR3 (mildly suspicious): > 1.5 cm, follow-up ultrasound in 1, 3, and 5 years. > 2.5 cm, fine needle aspiration. Electronically authenticated by: PAIGE CLAYTON Date: 2022-04-15 08:09 Normal [facility] XR CSPINE MIN 4 VIEWSon 03-26 XR CSPINE MIN 4 VIEWS EXAMINATION: XR CS PINE MIN 4 VIEWS HISTORY: Neck pain radiating into left arm, difficulty swallowing, food getting stuck, no known injury COMPARISON: No relevant comparison available. FINDINGS: BONES: Slight reversal of normal lordotic curvature. No fracture, spondylolisthesis, or bone lesion. DISC SPACES: Moderate narrowing C3-C4, C4-C5. Mild narrowing at remaining levels. Narrowing of the C3-C4 and C4-C5 neural foramen bilaterally. PARASPINOUS: Negative. No paraspinous abnormality is seen. OTHER: Negative. IMPRESSION: 1. Multilevel moderate-marked degenerative changes of the cervical spine. Consider MRI for further evaluation. Electronically authenticated by: PAIGE CLAYTON Date: 2022-04-04 12:31 Normal [facility] Albumin [Mass/volume] in Ser um or PlasmaOrdered By: Roma Pritchard on 03-28-2022 Albumin [Mass/Vol] 3.8 g/dL 3.2-5.5 [facility] Automated erythrocytes count in urine sediment (number/area)Ordered By: Roma Pritchard on 03-28-2022 RBC Auto (Urine sed) [#/Area] 3-4 [HPF] 0-4 [facility] Automated leukocytes count i n urine sediment (number/area)Ordered By: Roma Pritchard on 03-28-2022 WBC Auto (Urine sed) [#/Area] 20-49 [HPF] 0-4 [facility] Automated urine sediment claudia cium oxalate crystal count by microscopy (number/high powOrdered By: Roma Pritchard on 03-28-2022 Calcium oxalate crystals LM.HPF (Urine sed) [#/Area] 1+ [HPF] [facility] Basophils Auto (Bld) [#/Vol] Ordered By: Roma Pritchard on 03-28-2022 Basophils (Bld) [#/Vol] 0.0 10*3/uL 0.0-0.2 [facility] Basophils/100 WBC Auto (Bld) Ordered By: Roma Pritchard on 03-28-2022 Basophils/100 WBC (Bld) 0.6 % . [facility] Bilirubin Test strip Ql (U)O rdered By: Roma Pritchard on 03-28-2022 Bilirubin Ql (U) Negative Negative [facility] CT biopsyOrdered By: Roma hidalgo on 03-28-2022 Transferrin [Mass/Vol] 333 mg/dL 180-380 [facility] Cholesterol [Mass/volume] in Serum or PlasmaOrdered By: Roma Pritchard on 03-28-2022 Cholesterol [Mass/Vol] 186 mg/dL 140-200 [facility] Comment on above: Chol less than 200 m g/dl low riskChol 201-239 mg/dl borderline riskChol 240 mg/dl and greater high risk Cholesterol in LDL Calc [Mas s/Vol]Ordered By: Roma Pritchard on 03-28-2022 Cholesterol in LDL [Mass/Vol] 84 mg/dL 0-100 [facility] Comment on above: LDL ATP III CLASSIFI CATIONLDL less than 100 mg/dL OptimalLDL 100-129 mg/dL Near or above optimalLDL 130-159 mg/dL Borderline highLDL 160-189 mg/dL HighLDL greater than 189 mg/dL Very high Cholesterol in VLDL Calc [Ma ss/Vol]Ordered By: Roma Pritchard on 03-28-2022 Cholesterol in VLDL [Mass/Vol] 26 mg/dL [facility] Color Auto (U)Ordered By: Radu Pritchard on 03-28-2022 Color (U) Yellow Yellow [facility] Creatinine and Glomerular fi ltration rate.predicted panel (S/P/Bld)Ordered By: Roma Pritchard on 03-28-2022 Creatinine [Mass/Vol] 0.77 mg/dL 0.44-1.[address] [facility] Eosinophils Auto (Bld) [#/Vo l]Ordered By: Roma Pritchard on 03-28-2022 Eosinophils (Bld) [#/Vol] 0.1 10*3/uL 0.0-0.45 [facility] Eosinophils/100 WBC Auto (Bl d)Ordered By: Roma Pritchard on 03-28-2022 Eosinophils/100 WBC (Bld) 2.0 % . [facility] Erythrocyte distribution wid th Auto (RBC) [Ratio]Ordered By: Roma Pritchard on 03-28-2022 Erythrocyte distribution width (RBC) [Ratio] 14.0 % 11.9-15.3 [facility] Estimated glomerular filtrat ion rate (GFR) non- AmericanOrdered By: Roma Pritchard on 03-28-2022 GFR/1.73 sq M.predicted among non-blacks MDRD (S/P/Bld) [Vol rate/Area] > 60 mL/Min [facility] Ferritin [Mass/volume] in Se rum or PlasmaOrdered By: Roma Pritchard on 03-28-2022 Ferritin [Mass/Vol] 31.5 ng/mL 11-306.8 [facility] Folate [Mass/volume] in Seru m or PlasmaOrdered By: Roma Pritchard on 03-28-2022 Folate [Mass/Vol] 13.6 ng/mL >5.9 [facility] Comment on above: Folate reference ran ge: >5.9 ng/mlThe WHO technical consultation on folate and vitamin [id number] has determined that folate concentrations lessthan 4 ng/ml are considered deficient. Globulin Calc (S) [Mass/Vol] Ordered By: Roma Pritchard on 03-28-2022 Globulin (S) [Mass/Vol] 2.4 g/dL [facility] Hematocrit Auto (Bld) [Volum e fraction]Ordered By: Roma Pritchard on 03-28-2022 Hematocrit (Bld) [Volume fraction] 41.2 % 34.0-46.4 [facility] Hemoglobin [Mass/volume] in BloodOrdered By: Roma Pritchard on 03-28-2022 Hemoglobin (Bld) [Mass/Vol] 13.3 g/dL 11.8-15.4 [facility] Iron [Mass/volume] in Serum or PlasmaOrdered By: Roma Pritchard on 03-28-2022 Iron [Mass/Vol] 82 ug/dL 40-150 [facility] Iron binding capacity [Mass/ volume] in Serum or PlasmaOrdered By: Roma Pritchard on 03-28-2022 Iron binding capacity [Mass/Vol] 466 ug/dL 255-450 [facility] Iron saturation [Mass Fracti on] in Serum or PlasmaOrdered By: Roma Pritchard on 03-28-2022 Iron saturation [Mass fraction] 17.6 % 20-50 [facility] Ketones Auto test strip (U) [Mass/Vol]Ordered By: Roma Pritchard on 03-28-2022 Ketones (U) [Mass/Vol] Negative Negative [facility] - Chemistry and C hemistry - challengeOrdered By: Roma Pritchard on 03-28-2022 Cobalamin (Vitamin B12) [Mass/Vol] 540 pg/mL 180-914 [facility] - UrinalysisOrder ed By: Rmoa Pritchard on 03-28-2022 Hyaline casts LM Ql (Urine sed) 0-8 [LPF] 0-8 [facility] Leukocytes [#/volume] correc dinora for nucleated erythrocytes in Blood by Automated counOrdered By: Roma Pritchard on 03-28-2022 WBC corrected for nucl RBC Auto (Bld) [#/Vol] 7.0 10*3/uL 3.8-11.6 [facility] Lymphocytes Auto (Bld) [#/Vo l]Ordered By: Roma Pritchard on 03-28-2022 Lymphocytes (Bld) [#/Vol] 1.8 10*3/uL 1.00-4.8 [facility] Lymphocytes/100 WBC Auto (Bl d)Ordered By: Roma Pritchard on 03-28-2022 Lymphocytes/100 WBC (Bld) 25.7 % . [facility] MCH Auto (RBC) [Entitic mass ]Ordered By: Roma Pritchard on 03-28-2022 MCH (RBC) [Entitic mass] 29.8 pg 24.7-34.3 [facility] MCHC Auto (RBC) [Mass/Vol]Or dered By: Roma Pritchard on 03-28-2022 MCHC (RBC) [Mass/Vol] 32.3 g/dL 32.0-35.[address] [facility] MCV Auto (RBC) [Entitic vol] Ordered By: Roma Pritchard on 03-28-2022 MCV (RBC) [Entitic vol] 92.1 fL 80-100 [facility] Monocytes Auto (Bld) [#/Vol] Ordered By: Roma Pritchard on 03-28-2022 Monocytes (Bld) [#/Vol] 0.3 10*3/uL 0.0-0.8 [facility] Monocytes/100 WBC Auto (Bld) Ordered By: Roma Pritchard on 03-28-2022 Monocytes/100 WBC (Bld) 4.5 % . [facility] Neutrophils Auto (Bld) [#/Vo l]Ordered By: Roma Pritchard on 03-28-2022 Neutrophils (Bld) [#/Vol] 4.7 10*3/uL 1.8-7.7 [facility] Neutrophils/100 WBC Auto (Bl d)Ordered By: Roma Pritchard on 03-28-2022 Neutrophils/100 WBC (Bld) 67.2 % . [facility] Nitrite Test strip Ql (U)Ord ered By: Roma Pritchard on 03-28-2022 Nitrite Ql (U) Negative Negative [facility] No Panel InformationOrdered By: Roma Pritchard on 03-28-2022 25-Hydroxy Vitamin D Total 41.1 ng/mL 30-100 [facility] Comment on above: VITAMIN D STATUS 25( [place])VITAMIN D RANGE (ng/mL) Deficient <20 Insufficient 20 to <30Sufficient 30 to 100Reference: Bro MF,Salo NC, Iqra PAGE, et al. Evaluation,treatment, and prevention of vitamin D deficiency; an Endocrine Society clinical practice guideline. JCEM. 2010; 96(7):1911-30. Estimated GFR () > 60 mL/Min [facility] Comment on above: GFR estimated refere nce range: According to KDOQI guidelines, <60 ml/min/1.73m2 is sufficient to diagnose a patient with chronic kidney disease. Pharmacy Creatinine Clearance (Chem N/A [facility] Nucleated erythrocytes [Pres ence] in Blood by Automated countOrdered By: Roma Pritchard on 03-28-2022 Nucleated RBC Auto Ql (Bld) 0.0 /100{WBC} 0-0.5 [facility] Platelet mean volume Auto (B ld) [Entitic vol]Ordered By: Roma Pritchard on 03-28-2022 Platelet mean volume (Bld) [Entitic vol] 9.6 fL 6.3-10.7 [facility] Platelets Auto (Bld) [#/Vol] Ordered By: Roma Pritchard on 03-28-2022 Platelets (Bld) [#/Vol] 213 10*3/uL 150-450 [facility] Protein Auto test strip (U) [Mass/Vol]Ordered By: Roma Pritchard on 03-28-2022 Protein (U) [Mass/Vol] Negative Negative [facility] Protein [Mass/volume] in Ser um or PlasmaOrdered By: Roma Pritchard on 03-28-2022 Protein [Mass/Vol] 6.2 g/dL 6.1-7.9 [facility] RBC Auto (Bld) [#/Vol]Ordere d By: Roma Pritchard on 03-28-2022 RBC (Bld) [#/Vol] 4.48 10*6/uL 3.60-5.00 [facility] Serum or plasma alanine hoff otransferase measurement without P-5'-P (enzymatic activiOrdered By: Roma Pritchard on 03-28-2022 ALT No additional P-5'-P [Catalytic activity/Vol] 23 U/L 10-60 [facility] Serum or plasma albumin/glob ulin mass ratioOrdered By: Roma Pritchard on 03-28-2022 Albumin/Globulin [Mass ratio] 1.6 {ratio} [facility] Serum or plasma alkaline apollo sphatase measurement (enzymatic activity/volume)Ordered By: Roma Pritchard on 03-28-2022 ALP [Catalytic activity/Vol] 60 U/L 32-92 [facility] Serum or plasma anion gap de terminationOrdered By: Roma Pritchard on 03-28-2022 Anion gap [Moles/Vol] 9.1 mmol/L 6.0-15.[address] [facility] Serum or plasma aspartate am inotransferase measurement (enzymatic activity/volume)Ordered By: Roma Pritchard on 03-28-2022 AST [Catalytic activity/Vol] 17 U/L 10-42 [facility] Serum or plasma calcium carrie urement (mass/volume)Ordered By: Roma Pritchard on 03-28-2022 Calcium [Mass/Vol] 9.4 mg/dL 8.2-10.2 [facility] Serum or plasma chloride ritu surement (moles/volume)Ordered By: Roma Pritchard on 03-28-2022 Chloride [Moles/Vol] 104 mmol/L 95-114 [facility] Serum or plasma glucose carrie urement (mass/volume)Ordered By: Roma Pritchard on 03-28-2022 Glucose [Mass/Vol] 89 mg/dL 70-100 [facility] Comment on above: ADA recommended refe rence rangeRandom Glucose Reference Range is dependent on time and content of last meal. Glucose of more than 200 mg/dL in a nonstressed, ambulatory subject supports the diagnosis of Diabetes Mellitus. Serum or plasma high density lipoprotein (HDL) cholesterol measurementOrdered By: Roma Pritchard on 03-28-2022 Cholesterol in HDL [Mass/Vol] 76 mg/dL 35-85 [facility] Comment on above: HDL CHOL ATP-III CLA SSIFICATION Cardiovascular RiskHDL > or equal to 60 mg/dL LOWHDL < 40 mg/dL HIGH Serum or plasma potassium me asurement (moles/volume)Ordered By: Roma Pritchard on 03-28-2022 Potassium [Moles/Vol] 4.0 mmol/L 3.5-5.[address] [facility] Serum or plasma sodium measu rement (moles/volume)Ordered By: Roma Pritchard on 03-28-2022 Sodium [Moles/Vol] 137 mmol/L 136-146 [facility] Serum or plasma total biliru bin measurement (mass/volume)Ordered By: Roma Pritchard on 03-28-2022 Bilirubin [Mass/Vol] 0.3 mg/dL 0.3-1.2 [facility] Serum or plasma total carbon dioxide measurement (moles/volume)Ordered By: Roma Pritchard on 03-28-2022 CO2 [Moles/Vol] 27.9 mmol/L 22.0-30.0 [facility] Serum or plasma total choles terol/high density lipoprotein (HDL) cholesterol mass ratOrdered By: Roma Pritchard on 03-28-2022 Cholesterol.total/Cho lesterol in HDL [Mass ratio] 2.4 {ratio} <5.0 [facility] Serum or plasma urea nitroge n measurement (mass/volume)Ordered By: Roma Pritchard on 03-28-2022 Urea nitrogen [Mass/Vol] 20 mg/dL 9-23 [facility] Specific gravity Auto test s trip (U) [Rel density]Ordered By: Roma Pritchard on 03-28-2022 Specific gravity (U) [Rel density] 1.019 1.001-1.03 0 [facility] Squamous epithelial cells de tection in urine sediment by light microscopyOrdered By: Roma Pritchard on 03-28-2022 Epithelial cells.squamous LM Ql (Urine sed) 3-4 [HPF] 0-2 [facility] TSH DL <= 0.005 mIU/L QnOrde red By: Roma Pritchard on 03-28-2022 TSH Qn 1.25 m[IU]/L 0.45-5.33 [facility] Triglyceride [Mass/volume] i n Serum or PlasmaOrdered By: Roma Pritchard on 03-28-2022 Triglyceride [Mass/Vol] 132 mg/dL 35-149 [facility] Comment on above: TRIG ATP III CLASSIF ICATIONTRIG less than 150 mg/dL NormalTRIG 150-199 mg/dL Borderline highTRIG 200-500 mg/dL High TRIG greater than 500 mg/dL Very highStandard traceable to the Center for Disease Conrtrol and Prevention (CDC) test method. Urine bacteria detection by automated methodOrdered By: Roma Pritchard on 03-28-2022 Bacteria Auto Ql (U) None seen None Seen [facility] Urine clarity by refractomet ry automatedOrdered By: Roma Pritchard on 03-28-2022 Clarity Refractometry automated (U) Turbid Clear [facility] Urine glucose measurement by automated test strip (mass/volume)Ordered By: Roma Pritchard on 03-28-2022 Glucose Auto test strip (U) [Mass/Vol] Normal mg/dL Normal [facility] Urine hemoglobin detection b y automated test stripOrdered By: Roma Pritchard on 03-28-2022 Hemoglobin Auto test strip Ql (U) Negative Negative [facility] Urine leukocyte esterase det ection by automated test stripOrdered By: Roma Pritchard on 03-28-2022 Leukocyte esterase Auto test strip Ql (U) 3+ Negative [facility] Urine sediment crystal ident ification by light microscopyOrdered By: Roma Pritchard on 03-28-2022 Crystals LM Nom (Urine sed) None seen [HPF] [facility] Urobilinogen Auto test strip (U) [Mass/Vol]Ordered By: Roma Pritchard on 03-28-2022 Urobilinogen (U) [Mass/Vol] Normal mg/dL Normal [facility] WBC Auto (Bld) [#/Vol]Ordere d By: Roma Pritchard on 03-28-2022 WBC (Bld) [#/Vol] 7.0 10*3/uL 3.8-11.6 [facility] pH Auto test strip (U)Ordere d By: Roma Pritchard on 03-28-2022 pH (U) 5.5 [pH] 5.0-9.0 [facility] XR hip RT min 2V(w/wo pelvis )*on 03-05-2022 XR hip RT min 2V(w/wo pelvis)* [facility] [employer] Other XR hip RT min 2V(w/wo pelvis)* [facility] [address] [place] [employer] Other XR hip RT min 2V(w/wo pelvis)* [address] [facility] [employer] Other XR hip RT min 2V(w/wo pelvis)* [place]I Strickland [id number] [employer] Other XR hip RT min 2V(w/wo pelvis)* XRay Report [employer] Other XR hip RT min 2V(w/wo pelvis)* Signed [employer] Other XR hip RT min 2V(w/wo pelvis)* Patient: Teagan Gonsales MR#: [id number] [employer] Other XR hip RT min 2V(w/wo pelvis)* [id number] [employer] Other XR hip RT min 2V(w/wo pelvis)* : 1955 Acct:[id number] [employer] Other XR hip RT min 2V(w/wo pelvis)* Age/Sex: 66 / F ADM Date: 03/05/22 [employer] Other XR hip RT min 2V(w/wo pelvis)* Loc: [facility] Room: Type: [facility] [employer] Other XR hip RT min 2V(w/wo pelvis)* Attending Dr: Ar Herman II, MD [employer] Other XR hip RT min 2V(w/wo pelvis)* Copies to: Ar Herman MD [employer] Other XR hip RT min 2V(w/wo pelvis)* Ordering Provider: Ar Herman MD [employer] Other XR hip RT min 2V(w/wo pelvis)* Date of Service: 03/05/22 [employer] Other XR hip RT min 2V(w/wo pelvis)* XR/XR hip RT min 2V(w/wo pelvis)*: Right hip pain [employer] Other XR hip RT min 2V(w/wo pelvis)* RIGHT HIP - 2 views: [employer] Other XR hip RT min 2V(w/wo pelvis)* CLINICAL HISTORY: Lateral right hip pain for years with weakness. [employer] Other XR hip RT min 2V(w/wo pelvis)* COMPARISON: Hip series 01/19/2019 [employer] Other XR hip RT min 2V(w/wo pelvis)* FINDINGS: Moderate degenerative changes of both hips without acute bony process. Additional [employer] Other XR hip RT min 2V(w/wo pelvis)* degenerative changes involving the visualized lower lumbar spine and SI joints. [employer] Other XR hip RT min 2V(w/wo pelvis)* XR/XR hip RT min 2V(w/wo pelvis)* [employer] Other XR hip RT min 2V(w/wo pelvis)* IMPRESSION: [employer] Other XR hip RT min 2V(w/wo pelvis)* MODERATE DEGENERATIVE CHANGES OF BOTH HIPS WITHOUT ACUTE BONY PROCESS.. [employer] Other XR hip RT min 2V(w/wo pelvis)* Impression dictated by: Martin Ruano Jr. D.ONkechi03/05/2022 3:03 PM [employer] Other XR hip RT min 2V(w/wo pelvis)* Dictation Location: [facility]--08 [employer] Other XR hip RT min 2V(w/wo pelvis)* Transcribed By: MITCH 03/05/22 1503 [employer] Other XR hip RT min 2V(w/wo pelvis)* Dictated By: Martin Ruano Jr, 03/05/22 1502 [employer] Other XR hip RT min 2V(w/wo pelvis)* Signed By: [employer] Other XR hip RT min 2V(w/wo pelvis)* 03/05/22 1504 [employer] Other XR KUB 1 VIEWon 12-30-2021 XR KUB 1 VIEW EXAMINATION: XR KUB 1 VIEW HISTORY: Kidney stone COMPARISON: No relevant comparison available. FINDINGS: KIDNEY/URETER - RIGHT: No visible renal or ureteral calcifications. KIDNEY/URETER - LEFT: No visible renal or ureteral calcifications. PELVIS: No visible ureteral calcifications. Any visible calcifications favor phleboliths. BOWEL: No abnormal dilation or deviation. BONES: Moderate bilateral hip osteoarthropathy. Moderate degenerative changes of the spine OTHER: Negative. No abnormal gaseous collections. IMPRESSION: No definite urinary tract calculi Electronically authenticated by: ROMA BOUDREAUX Date: 2021-12-30 17:26 Normal [facility] Urine culture routineOrdered By: Roma Pritchard on 09-25-2021 Bacteria identified Cx Nom (U) 2 Days [facility] Automated erythrocytes count in urine sediment (number/area)Ordered By: Roma Pritchard on 09-23-2021 RBC Auto (Urine sed) [#/Area] 3-4 [HPF] 0-4 [facility] Automated leukocytes count i n urine sediment (number/area)Ordered By: Roma Pritchard on 09-23-2021 WBC Auto (Urine sed) [#/Area] 10-19 [HPF] 0-4 [facility] Automated urine sediment clauida cium oxalate crystal count by microscopy (number/high powOrdered By: Roma Pritchard on 09-23-2021 Calcium oxalate crystals LM.HPF (Urine sed) [#/Area] 2+ [HPF] [facility] Basophils Auto (Bld) [#/Vol] Ordered By: Roma Pritchard on 09-23-2021 Basophils (Bld) [#/Vol] 0.0 10*3/uL 0.0-0.2 [facility] Basophils/100 WBC Auto (Bld) Ordered By: Roma Pritchard on 09-23-2021 Basophils/100 WBC (Bld) 0.6 % . [facility] Bilirubin Auto test strip Ql (U)Ordered By: Roma Pritchard on 09-23-2021 Bilirubin Ql (U) Negative Negative [facility] Blood hemoglobin measurement (mass/volume)Ordered By: Roma Pritchard on 09-23-2021 Hemoglobin (Bld) [Mass/Vol] 13.5 g/dL 11.8-15.4 [facility] Blood leukocytes automated c ount (number/volume)Ordered By: Roma Pritchard on 09-23-2021 WBC (Bld) [#/Vol] 5.9 10*3/uL 4.5-11.0 [facility] Body fluid albumin measureme nt (mass/volume)Ordered By: Roma Pritchard on 09-23-2021 Albumin (Body fld) [Mass/Vol] 3.9 g/dL 3.2-5.[address] [facility] [address] biopsyOrdered By: Roma hidalgo on 09-23-2021 Transferrin [Mass/Vol] 290 mg/dL 180-380 [facility] Cholesterol [Mass/volume] in Serum or PlasmaOrdered By: Roma Pritchard on 09-23-2021 Cholesterol [Mass/Vol] 158 mg/dL 140-200 [facility] Comment on above: Chol less than 200 m g/dl low risk Chol 201-239 mg/dl borderline risk Chol 240 mg/dl and greater high risk Cholesterol in LDL Calc [Mas s/Vol]Ordered By: Roma Pritchard on 09-23-2021 Cholesterol in LDL [Mass/Vol] 64 mg/dL 0-100 [facility] Comment on above: LDL ATP III CLASSIFI CATION LDL less than 100 mg/dL Optimal LDL 100-129 mg/dL Near or above optimal LDL 130-159 mg/dL Borderline high LDL 160-189 mg/dL High LDL greater than 189 mg/dL Very high Cholesterol in VLDL Calc [Ma ss/Vol]Ordered By: Roma Pritchard on 09-23-2021 Cholesterol in VLDL [Mass/Vol] 39 mg/dL [facility] Creatinine and Glomerular fi ltration rate.predicted panel (S/P/Bld)Ordered By: Roma Pritchard on 09-23-2021 Creatinine [Mass/Vol] 0.64 mg/dL 0.44-1.[address] [facility] Eosinophils Auto (Bld) [#/Vo l]Ordered By: Roma Pritchard on 09-23-2021 Eosinophils (Bld) [#/Vol] 0.2 10*3/uL 0.0-0.45 [facility] Eosinophils/100 WBC Auto (Bl d)Ordered By: Roma Pritchard on 09-23-2021 Eosinophils/100 WBC (Bld) 2.6 % . [facility] Erythrocyte distribution wid th Auto (RBC) [Ratio]Ordered By: Roma Pritchard on 09-23-2021 Erythrocyte distribution width (RBC) [Ratio] 12.7 % 11.9-15.3 [facility] Estimated glomerular filtrat ion rate (GFR) non- AmericanOrdered By: Roma Pritchard on 09-23-2021 GFR/1.73 sq M.predicted among non-blacks MDRD (S/P/Bld) [Vol rate/Area] > 60 mL/Min [facility] Ferritin [Mass/volume] in Se rum or PlasmaOrdered By: Roma Pritchard on 09-23-2021 Ferritin [Mass/Vol] 101.7 ng/mL 11-306.8 [facility] Folate [Mass/volume] in Seru m or PlasmaOrdered By: Roma Pritchard on 09-23-2021 Folate [Mass/Vol] 17.1 ng/mL >5.9 [facility] Comment on above: Folate reference ran ge: >5.9 ng/ml The WHO technical consultation on folate and vitamin b12 deficiencies has determined that folate concentrations less than 4 ng/ml are considered deficient. Globulin Calc (S) [Mass/Vol] Ordered By: Roma Pritchard on 09-23-2021 Globulin (S) [Mass/Vol] 2.3 g/dL [facility] Glucose mean value [Mass/vol ume] in Blood Estimated from glycated hemoglobinOrdered By: Roma Pritchard on 09-23-2021 Average glucose Estimated from glycated hemoglobin (Bld) [Mass/Vol] 120 mg/dL [facility] Hematocrit Auto (Bld) [Volum e fraction]Ordered By: Roma Pritchard on 09-23-2021 Hematocrit (Bld) [Volume fraction] 40.6 % 34.0-46.4 [facility] Hemoglobin A1c percentageOrd ered By: Roma Pritchard on 09-23-2021 HbA1c (Bld) [Mass fraction] 5.8 % 4.3-5.6 [facility] Comment on above: Increased risk for d iabetes: 5.7 - 6.4 diabetes: >6.4 glycemic control for adults with diabetes: <7.0 Iron [Mass/volume] in Serum or PlasmaOrdered By: Roma Pritchard on 09-23-2021 Iron [Mass/Vol] 98 ug/dL 40-150 [facility] Iron binding capacity [Mass/ volume] in Serum or PlasmaOrdered By: Roma Pritchard on 09-23-2021 Iron binding capacity [Mass/Vol] 406 ug/dL 255-450 [facility] Iron saturation [Mass Fracti on] in Serum or PlasmaOrdered By: Roma Pritchard on 09-23-2021 Iron saturation [Mass fraction] 24.0 % 20-50 [facility] Ketones Auto test strip (U) [Mass/Vol]Ordered By: Roma Pritchard on 09-23-2021 Ketones (U) [Mass/Vol] Negative Negative [facility] - Chemistry and C hemistry - challengeOrdered By: Roma Pritchard on 09-23-2021 Cobalamin (Vitamin B12) [Mass/Vol] 648 pg/mL 180-914 [facility] - Hematology and Cell countsOrdered By: Roma Pritchard on 09-23-2021 Nucleated RBC/100 WBC (Bld) [Ratio] 0.1 % 0-0.5 [facility] - UrinalysisOrder ed By: Roma Pritchard on 09-23-2021 Hyaline casts LM Ql (Urine sed) 0-8 [LPF] 0-8 [facility] Lymphocytes Auto (Bld) [#/Vo l]Ordered By: Roma Pritchard on 09-23-2021 Lymphocytes (Bld) [#/Vol] 1.6 10*3/uL 1.00-4.8 [facility] Lymphocytes/100 WBC Auto (Bl d)Ordered By: Roma Pritchard on 09-23-2021 Lymphocytes/100 WBC (Bld) 27.3 % . [facility] MCH Auto (RBC) [Entitic mass ]Ordered By: Roma Pritchard on 09-23-2021 MCH (RBC) [Entitic mass] 31.0 pg 24.7-34.3 [facility] MCHC Auto (RBC) [Mass/Vol]Or dered By: Roma Pritchard on 09-23-2021 MCHC (RBC) [Mass/Vol] 33.3 g/dL 32.0-35.[address] [facility] MCV Auto (RBC) [Entitic vol] Ordered By: Roma Pritchard on 09-23-2021 MCV (RBC) [Entitic vol] 93.1 fL 80-100 [facility] Monocytes Auto (Bld) [#/Vol] Ordered By: Roma Pritchard on 09-23-2021 Monocytes (Bld) [#/Vol] 0.5 10*3/uL 0.0-0.8 [facility] Monocytes/100 WBC Auto (Bld) Ordered By: Roma Pritchard on 09-23-2021 Monocytes/100 WBC (Bld) 8.6 % . [facility] Neutrophils Auto (Bld) [#/Vo l]Ordered By: Roma Pritchard on 09-23-2021 Neutrophils (Bld) [#/Vol] 3.6 10*3/uL 1.8-7.7 [facility] Neutrophils/100 WBC Auto (Bl d)Ordered By: Roma Pritchard on 09-23-2021 Neutrophils/100 WBC (Bld) 60.9 % . [facility] No Panel InformationOrdered By: Roma Pritchard on 09-23-2021 25-Hydroxy Vitamin D Total 41.0 ng/mL 30-100 [facility] Comment on above: VITAMIN D STATUS 25( [place])VITAMIN D RANGE (ng/mL) Deficient <20 Insufficient 20 to <30 Sufficient 30 to 100 Reference: Bro MF,Salo DARNELL, Iqra PAGE, et al. Evaluation,treatment, and prevention of vitamin D deficiency; an Endocrine Society clinical practice guideline. JCEM. 2010; 96(7):1911-30. Estimated GFR () > 60 mL/Min [facility] Comment on above: GFR estimated refere nce range: According to KDOQI guidelines, <60 ml/min/1.73m2 is sufficient to diagnose a patient with chronic kidney disease. Pharmacy Creatinine Clearance (Chem N/A [facility] Platelet mean volume Auto (B ld) [Entitic vol]Ordered By: Roma Pritchard on 09-23-2021 Platelet mean volume (Bld) [Entitic vol] 10.0 fL 6.3-10.7 [facility] Platelets Auto (Bld) [#/Vol] Ordered By: Roma Pritchard on 09-23-2021 Platelets (Bld) [#/Vol] 213 10*3/uL 150-450 [facility] Protein Auto test strip (U) [Mass/Vol]Ordered By: Roma Pritchard on 09-23-2021 Protein (U) [Mass/Vol] Negative Negative [facility] Protein [Mass/volume] in Ser um or PlasmaOrdered By: Roma Pritchard on 09-23-2021 Protein [Mass/Vol] 6.2 g/dL 6.1-7.9 [facility] RBC Auto (Bld) [#/Vol]Ordere d By: Roma Pritchard on 09-23-2021 RBC (Bld) [#/Vol] 4.36 10*6/uL 3.60-5.00 [facility] Serum or plasma alanine hoff otransferase measurement without P-5'-P (enzymatic activiOrdered By: Roma Pritchard on 09-23-2021 ALT No additional P-5'-P [Catalytic activity/Vol] 49 U/L 10-60 [facility] Serum or plasma albumin/glob ulin mass ratioOrdered By: Roma Pritchard on 09-23-2021 Albumin/Globulin [Mass ratio] 1.7 {ratio} [facility] Serum or plasma alkaline apollo sphatase measurement (enzymatic activity/volume)Ordered By: Roma Pritchard on 09-23-2021 ALP [Catalytic activity/Vol] 69 U/L 32-92 [facility] Serum or plasma aspartate am inotransferase measurement (enzymatic activity/volume)Ordered By: Roma Pritchard on 09-23-2021 AST [Catalytic activity/Vol] 29 U/L 10-42 [facility] Serum or plasma calcium carrie urement (mass/volume)Ordered By: Roma Pritchard on 09-23-2021 Calcium [Mass/Vol] 9.9 mg/dL 8.2-10.2 [facility] Serum or plasma chloride ritu surement (moles/volume)Ordered By: Roma Pritchard on 09-23-2021 Chloride [Moles/Vol] 102 mmol/L 95-114 [facility] Serum or plasma glucose carrie urement (mass/volume)Ordered By: Roma Pritchard on 09-23-2021 Glucose [Mass/Vol] 117 mg/dL 70-100 [facility] Comment on above: ADA recommended refe rence range Random Glucose Reference Range is dependent on time and content of last meal. Glucose of more than 200 mg/dL in a nonstressed, ambulatory subject supports the diagnosis of Diabetes Mellitus. Serum or plasma high density lipoprotein (HDL) cholesterol measurementOrdered By: Roma Pritchard on 09-23-2021 Cholesterol in HDL [Mass/Vol] 55 mg/dL 35-85 [facility] Comment on above: HDL CHOL ATP-III CLA SSIFICATION Cardiovascular Risk HDL > or equal to 60 mg/dL LOW HDL < 40 mg/dL HIGH Serum or plasma potassium me asurement (moles/volume)Ordered By: Roma Pritchard on 09-23-2021 Potassium [Moles/Vol] 4.0 mmol/L 3.5-5.[address] [facility] Serum or plasma sodium measu rement (moles/volume)Ordered By: Roma Pritchard on 09-23-2021 Sodium [Moles/Vol] 140 mmol/L 136-146 [facility] Serum or plasma total biliru bin measurement (mass/volume)Ordered By: Roma Pritchard on 09-23-2021 Bilirubin [Mass/Vol] 0.5 mg/dL 0.3-1.2 [facility] Serum or plasma total carbon dioxide measurement (moles/volume)Ordered By: Roma Pritchard on 09-23-2021 CO2 [Moles/Vol] 25.2 mmol/L 22.0-30.0 [facility] Serum or plasma total choles terol/high density lipoprotein (HDL) cholesterol mass ratOrdered By: Roma Pritchard on 09-23-2021 Cholesterol.total/Cho lesterol in HDL [Mass ratio] 2.9 {ratio} <5.0 [facility] Serum or plasma urea nitroge n measurement (mass/volume)Ordered By: Roma Pritchard on 09-23-2021 Urea nitrogen [Mass/Vol] 14 mg/dL 9- [facility] Squamous epithelial cells de tection in urine sediment by light microscopyOrdered By: Roma Pritchard on 09-23-2021 Epithelial cells.squamous LM Ql (Urine sed) 3-4 [HPF] 0-2 [facility] Triglyceride [Mass/volume] i n Serum or PlasmaOrdered By: Roma Pritchard on 09-23-2021 Triglyceride [Mass/Vol] 196 mg/dL 35-149 [facility] Comment on above: TRIG ATP III CLASSIF ICATION TRIG less than 150 mg/dL Normal TRIG 150-199 mg/dL Borderline high TRIG 200-500 mg/dL High TRIG greater than 500 mg/dL Very high Standard traceable to the Center for Disease Conrtrol and Prevention (CDC) test method. Urine appearanceOrdered By: Roma Pritchard on 09-23-2021 Appearance (U) Cloudy Clear [facility] Urine bacteria detection by automated methodOrdered By: Roma Pritchard on 09-23-2021 Bacteria Auto Ql (U) 1+ None Seen [facility] Urine colorOrdered By: Roma Pritchard on 09-23-2021 Color (U) Yellow Yellow [facility] Urine glucose measurement by automated test strip (mass/volume)Ordered By: Roma Pritchard on 09-23-2021 Glucose Auto test strip (U) [Mass/Vol] Normal mg/dL Normal [facility] Urine hemoglobin detection b y automated test stripOrdered By: Roma Pritchard on 09-23-2021 Hemoglobin Auto test strip Ql (U) 1+ Negative [facility] Urine leukocyte esterase det ection by automated test stripOrdered By: Roma Pritchard on 09-23-2021 Leukocyte esterase Auto test strip Ql (U) 2+ Negative [facility] Urine nitrite detection by a utomated test stripOrdered By: Roma Pritchard on 09-23-2021 Nitrite Auto test strip Ql (U) Negative Negative [facility] Urine sediment crystal ident ification by light microscopyOrdered By: Roma Pritchard on 09-23-2021 Crystals LM Nom (Urine sed) None seen [HPF] [facility] Urobilinogen Auto test strip (U) [Mass/Vol]Ordered By: Roma Pritchard on 09-23-2021 Urobilinogen (U) [Mass/Vol] Normal mg/dL Normal [facility] pH Auto test strip (U)Ordere d By: Roma Pritchard on 09-23-2021 pH (U) 1.030 [pH] 1.001-1.03 0 [facility] pH (U) 5.5 [pH] 5.0-9.0 [facility] XR abdomen min 2Von 01-08-20 21 XR abdomen min 2V [facility] [employer] Other XR abdomen min 2V [facility] [address] [place] [facility] [employer] Other XR abdomen min 2V [address] [place] [address] [employer] Other XR abdomen [place] 2[place] [address] [employer] Other XR abdomen min 2V XRay Report [employer] Other XR abdomen min 2V Signed [employer] Other XR abdomen min 2V Patient: William Gonsales MR#: [id number] [employer] Other XR abdomen min 2V [id number] [employer] Other XR abdomen min 2V : 1955 Acct:[id number] [employer] Other XR abdomen min 2V Age/Sex: 65 / F ADM Date: 01/07/21 [employer] Other XR abdomen min 2V Loc: XD Room: Type: REG CLI [employer] Other XR abdomen min 2V Attending Dr: Roma Pritchard DO [employer] Other XR abdomen min 2V Ordering Provider: Carl Pritchard, [employer] Other XR abdomen min 2V Date of Service: 01/07/21 [employer] Other XR abdomen min 2V [id number]) XR/XR abdomen min 2V: K59.00 [employer] Other XR abdomen min 2V Copies to: Roma Pritchard,DO [employer] Other XR abdomen min 2V 2 views of abdomen [employer] Other XR abdomen min 2V COMPARISON: 12/27/20 [employer] Other XR abdomen min 2V HISTORY: Increased stool. [employer] Other XR abdomen min 2V Nondistended air-cailin led small bowel loops identified. [employer] Other XR abdomen min 2V Reduction of stool identified. [employer] Other XR abdomen min 2V No abdominal calcifi cation identified. [employer] Other XR abdomen min 2V No soft tissue mass seen. [employer] Other XR abdomen min 2V Advanced lower lumba r spondylosis present. To moderate bilateral hip degeneration. [employer] Other XR abdomen min 2V X R/XR abdomen min 2V [employer] Other XR abdomen min 2V IMPRESSION: No visib le nephrolithiasis. Reduction of stool. [employer] Other XR abdomen min 2V Impression dictated by: Jeevan Johnson M.D.01/07/2021 3:34 PM [employer] Other XR abdomen min 2V Dictation Location: [facility]- [employer] Other XR abdomen min 2V Transcribed By: PWS 01/07/21 1534 [employer] Other XR abdomen min 2V Dictated By: Valdez Johnson DO 01/07/21 1532 [employer] Other XR abdomen min 2V Signed By: [facility] [employer] Other XR abdomen min 2V 01/07/21 1534 [facility] [employer] Other Urinalysison 12-18-2020 Appearance (U) Clear Clear [employer] Other Color (U) Yellow Yellow [employer] Other Glucose Ql (U) Normal Normal [employer] Other Ketones Ql (U) Negative Negative [employer] Other Leukocyte esterase Test strip Ql (U) Negative Negative [employer] Other pH (U) 5.5 [pH] 5.0-9.0 [employer] Other Urinalysis 1.007 1.001-1.03 0 [employer] Other Urinalysis Normal Normal [employer] Other Urine 10 SGon 12-18-2020 Albumin DL <= 20 mg/L (U) [Mass/Vol] Negative [employer] Other pH (U) 5.0 [pH] [employer] Other Urine 10 SG Negative Negative [employer] Other Urine 10 SG 1.010 [employer] Other Urine 10 SG 0.2 [employer] Other Dermatopathologyon Dermatopathology [facility] [address] [place] [id number] DERMATOPATHOLOGY REPORT Name:TEAGAN OGNSALES [facility] Rec #. 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 Note: Microscopic examination reveals a specimen that extends into the superficial dermis. The epidermis is flattened and there is basal layer keratinocyte atypia with dense solar elastosis and basal layer vacuolization with a mild to moderate superficial lymphocytic infiltrate. These findings could be seen in an actinic keratosis, including a lichenoid actinic keratosis, which is present on the deep and peripheral margin. An actinic keratosis with a concomitant connective tissue disease such as acute cutaneous lupus erythematosus, subacute cutaneous lupus erythematosus and dermatomyositis cannot be excluded. Electronically Signed Out by INO FIGUEROA M.D. Electronically Signed Out By INO FIGUEROA MD/[facility] By the signature on this report, the individual or group listed as making the Final Interpretation/Diagnosis certifies that they have reviewed this case. Clinical History: 2.1 x 1.9 cm. ISK vs Lupus vs other. Biopsy. Specimens Submitted As: A: SKIN, R RESTORATIONISM Gross Description: Received in formalin is a salas piece of skin measuring [id number]. The specimen is inked and embedded in toto. dcp/05/03/2020 Normal [facility] Comment on above: Performed By: #### D #### Dermatopathology [facility] 08-02-2018 [facility] Letter Text Normal [facility] Vital Signs Date Time Vital Sign Value Performing Clinician Facility 04-02-2023 08:10-0500 Body height 157.48 cm Roma Pritchard Other [employer] Other 04-02-2023 08:10-0500 Body mass index (BMI) [Ratio] 26.34 kg/m2 Roma Pritchard Other [employer] Other 04-02-2023 08:10-0500 Body temperature 98.8 [degF] Roma Pritchard Other [employer] Other 04-02-2023 08:10-0500 Body weight 65.32 kg Roma Ermacarmen Other [employer] Other 04-02-2023 08:10-0500 Diastolic blood pressure 80 mm[Hg] Roma Pritchard Other [employer] Other 04-02-2023 08:10-0500 Respiratory rate 16 /min Roma Pritchard Other [employer] Other 04-02-2023 08:10-0500 SaO2% (BldA) [Mass fraction] 95 % Roma Pritchard Other [employer] Other 04-02-2023 08:10-0500 Systolic blood pressure 128 mm[Hg] Roma Pritchard Other [employer] Other 03-09-2023 11:00-0500 Body height 157.48 cm Tanna Wilson Other [employer] Other 03-09-2023 11:00-0500 Body mass index (BMI) [Ratio] 26.52 kg/m2 Tanna Wilson Other [employer] Other 03-09-2023 11:00-0500 Body weight 65.77 kg Tanna Wilson Other [employer] Other 03-09-2023 11:00-0500 Diastolic blood pressure 89 mm[Hg] Tanna Wilson Other [employer] Other 03-09-2023 11:00-0500 SaO2% (BldA) [Mass fraction] 97 % Tanna Wilson Other [employer] Other 03-09-2023 11:00-0500 Systolic blood pressure 149 mm[Hg] Tanna Wilson Other [employer] Other 03-03-2023 08:15-0500 Body height 157.48 cm Colby Shaffer Other [employer] Other 03-03-2023 08:15-0500 Body mass index (BMI) [Ratio] 26.34 kg/m2 Colby Legerley Other [employer] Other 03-03-2023 08:15-0500 Body weight 65.32 kg Colby Shaffer Other [employer] Other 01-06-2023 08:15-0500 Blood Pressure Location MARIANAFLORI YUNRY [facility] 01-06-2023 08:15-0500 Diastolic blood pressure 79 mm[Hg] MARIANA AD [facility] 01-06-2023 08:15-0500 Heart rate 75 /min MARIANA AD [facility] 01-06-2023 08:15-0500 Respiratory rate 16 /min MARIANA AD [facility] 01-06-2023 08:15-0500 Systolic blood pressure 127 mm[Hg] MARIANA AD [facility] 12-31-2022 10:30-0500 Body height 157.48 cm Roam Pritchard Other [employer] [facility] [employer] Other 11-04-2022 12:20-0400 Diastolic blood pressure 77 mm[Hg] DO Roma Pritchard Work Phone: [facility] 11-04-2022 12:20-0400 Heart rate 74 /min DO Roma Pritchard Work Phone: [facility] 11-04-2022 12:20-0400 Respiratory rate 16 /min DO Roma Pritchard Work Phone: [facility] 11-04-2022 12:20-0400 SaO2% (BldA) [Mass fraction] 98 % DO Roma Pritchard Work Phone: [facility] 11-04-2022 12:20-0400 Systolic blood pressure 122 mm[Hg] DO Roma Pritchard Work Phone: [facility] 11-04-2022 10:51-0400 Body temperature 97.4 [degF] DO Roma Pritchard Work Phone: [facility] 11-04-2022 10:11-0400 Inhaled oxygen flow rate 3 L/min DO Roma Pritchard Work Phone: [facility] 11-04-2022 07:41-0400 Body height 160.02 cm DO Roma Pritchard Work Phone: [facility] 11-04-2022 07:41-0400 Body mass index (BMI) [Ratio] 24.5 kg/m2 DO Roma Pritchard Work Phone: [facility] 11-04-2022 07:41-0400 Body weight 63 kg DO Roma Pritchard Work Phone: [facility] 10-23-2022 09:30-0400 Body height 157.48 cm Ar Herman II Other [employer] Other 10-23-2022 09:30-0400 Body mass index (BMI) [Ratio] 25.6 kg/m2 Ar Herman II Other [employer] Other 10-23-2022 09:30-0400 Body weight 63.5 kg Ar Herman II Other [employer] Other 06-26-2022 10:10-0400 Body height 157.48 cm Roma Pritchard Other [employer] Other 06-26-2022 10:10-0400 Body mass index (BMI) [Ratio] 25.79 kg/m2 Roma Pritchard Other [employer] Other 06-26-2022 10:10-0400 Body weight 63.96 kg Roma Pritchard Other [employer] Other 06-26-2022 10:10-0400 Diastolic blood pressure 82 mm[Hg] Roma Pritchard Other [employer] Other 06-26-2022 10:10-0400 Systolic blood pressure 125 mm[Hg] Roma Pritchard Other [employer] Other 04-02-2022 10:10-0500 Body height 157.48 cm Roma Pritchard Other [employer] Other 04-02-2022 10:10-0500 Body mass index (BMI) [Ratio] 26.98 kg/m2 Roma Pritchard Other [employer] Other 04-02-2022 10:10-0500 Body temperature 96.7 [degF] Roma Pritchard Other [employer] Other 04-02-2022 10:10-0500 Body weight 66.91 kg Roma Pritchard Other [employer] Other 04-02-2022 10:10-0500 Diastolic blood pressure 86 mm[Hg] Roma Pritchard Other [employer] Other 04-02-2022 10:10-0500 Respiratory rate 18 /min Roma Pritchard Other [employer] Other 04-02-2022 10:10-0500 SaO2% (BldA) [Mass fraction] 97 % Roma Pritchard Other [employer] Other 04-02-2022 10:10-0500 Systolic blood pressure 132 mm[Hg] Roma Pritchard Other [employer] Other 03-05-2022 10:00-0500 Body height 157.48 cm [employer] Other [employer] Other 03-05-2022 10:00-0500 Body mass index (BMI) [Ratio] 26.88 kg/m2 Ar Garciaisle II Other [employer] Other 03-05-2022 10:00-0500 Body weight 66.68 kg Ar Meade II Other [employer] Other 02-25-2022 11:15-0500 Body height 157.48 cm Tanna Wilson Other [employer] Other 02-25-2022 11:15-0500 Body mass index (BMI) [Ratio] 26.88 kg/m2 Tanna Wilson Other [employer] Other 02-25-2022 11:15-0500 Body temperature 96.8 [degF] Tanna Wilson Other [employer] Other 02-25-2022 11:15-0500 Body weight 66.68 kg Tanna Wilson Other [employer] Other 02-25-2022 11:15-0500 Diastolic blood pressure 83 mm[Hg] Tanna Wilson Other [employer] Other 02-25-2022 11:15-0500 SaO2% (BldA) [Mass fraction] 96 % Tanna Wilson Other [employer] Other 02-25-2022 11:15-0500 Systolic blood pressure 147 mm[Hg] Tanna Wilson Other [employer] Other 12-31-2021 10:10-0500 Body height 157.48 cm Roma Pritchard Other [employer] Other 10-02-2021 09:10-0400 Body height 157.48 cm Roma Pritchard Other [employer] Other 10-02-2021 09:10-0400 Body mass index (BMI) [Ratio] 27.36 kg/m2 Roma Pritchard Other [employer] Other 10-02-2021 09:10-0400 Body weight 67.86 kg Roma Pritchard Other [employer] Other 10-02-2021 09:10-0400 Diastolic blood pressure 86 mm[Hg] Roma Pritchard Other [employer] Other 10-02-2021 09:10-0400 Systolic blood pressure 123 mm[Hg] Roma Pritchard Other [employer] Other 06-26-2021 09:50-0400 Body height 157.48 cm Roma Pritchard Other [employer] Other 05-07-2021 09:30-0400 Body height 157.48 cm Tanna Wilson Other [employer] Other 05-07-2021 09:30-0400 Body mass index (BMI) [Ratio] 28.44 kg/m2 Tanna Wilson Other [employer] Other 05-07-2021 09:30-0400 Body temperature 97.1 [degF] Tanna Wilson Other [employer] Other 05-07-2021 09:30-0400 Body weight 70.53 kg Tanna Wilson Other [employer] Other 05-07-2021 09:30-0400 Diastolic blood pressure 85 mm[Hg] Tanna Wilson Other [employer] Other 05-07-2021 09:30-0400 SaO2% (BldA) [Mass fraction] 97 % Tanna Wilson Other [employer] Other 05-07-2021 09:30-0400 Systolic blood pressure 128 mm[Hg] Tanna Wilson Other [employer] Other 04-19-2021 11:45-0500 Body height 157.48 cm Megan Asencio Other [employer] Other 04-19-2021 11:45-0500 Body mass index (BMI) [Ratio] 27.62 kg/m2 Megna Asencio Other [employer] Other 04-19-2021 11:45-0500 Body weight 68.49 kg Megan Asencio Other [employer] Other 03-22-2021 09:10-0500 Body height 157.48 cm Roma Pritchard Other [employer] Other 03-22-2021 09:10-0500 Body mass index (BMI) [Ratio] 28.16 kg/m2 Roma Pritchard Other [employer] Other 03-22-2021 09:10-0500 Body temperature 97.6 [degF] Roma Pritchard Other [employer] Other 03-22-2021 09:10-0500 Body weight 69.85 kg Roma Pritchard Other [employer] Other 03-22-2021 09:10-0500 Diastolic blood pressure 78 mm[Hg] Roma Pritchard Other [employer] Other 03-22-2021 09:10-0500 Respiratory rate 16 /min Roma Pritchard Other [employer] Other 03-22-2021 09:10-0500 SaO2% (BldA) [Mass fraction] 99 % Roma Pritchard Other [employer] Other 03-22-2021 09:10-0500 Systolic blood pressure 122 mm[Hg] Roma Pritchard Other [employer] Other 12-18-2020 09:10-0400 Body height 157.48 cm Roma Pritchard Other [employer] Other 12-18-2020 09:10-0400 Body mass index (BMI) [Ratio] 28.16 kg/m2 Roma Pritchard Other [employer] Other 12-18-2020 09:10-0400 Body temperature 97.3 [degF] Roma Pritchard Other [employer] Other 12-18-2020 09:10-0400 Body weight 69.85 kg Roma Pritchard Other [employer] Other 12-18-2020 09:10-0400 Diastolic blood pressure 84 mm[Hg] Roma Pritchard Other [employer] Other 12-18-2020 09:10-0400 Respiratory rate 18 /min Roma Pritchard Other [employer] Other 12-18-2020 09:10-0400 SaO2% (BldA) [Mass fraction] 97 % Roma Pritchard Other [employer] Other 12-18-2020 09:10-0400 Systolic blood pressure 122 mm[Hg] Roma Pritchard Other [employer] Other Encounters Encounter Date Encounter Type Care Provider Facility Start: 01-12-2024 ambulatory MARIANA Kilgore ty:NA[facility] Start: 04-02-2023 End: 04-02-2023 ambulatory Roma Pritchard Other [employer] Other Start: 04-02-2023 Office outpatient vi sit 25 minutes Roma Pritchard [facility] [place] Start: 03-25-2023 End: 03-25-2023 ambulatory Roma Pritchard Facility:[facility] Start: 03-25-2023 End: 03-25-2023 ambulatory DO Roma Pritchard Work Phone: [facility] Work Phone: Start: 03-25-2023 End: 03-25-2023 Patient encounter procedure DO Roma Pritchard Work Phone: [facility] [place] Work Phone: Start: 03-09-2023 Office outpatient vi sit 15 minutes Tanna Steve [facility] Start: 03-09-2023 End: 03-09-2023 ambulatory Roma Pritchard Facility:[facility] Start: 03-09-2023 End: 03-09-2023 ambulatory DO Roma Pritchard Work Phone: [facility] Work Phone: Start: 03-09-2023 End: 03-09-2023 Patient encounter procedure DO Roma Pritchard Work Phone: [facility]-Sleep [facility] Work Phone: Start: 03-09-2023 End: 03-09-2023 Patient encounter procedure DO Roma Pritchard Work Phone: [facility] Work Phone: Start: 03-04-2023 End: 03-04-2023 ambulatory Colby Shaffer Other [employer] Other Start: 03-04-2023 Telephone encounter Colby Shaffer [facility] Start: 03-03-2023 Office outpatient ne w 45 minutes Colby Shaffer [facility] Start: 03-03-2023 End: 03-03-2023 ambulatory DO Roma Pritchard Work Phone: [facility] Work Phone: Start: 03-03-2023 End: 03-03-2023 Patient encounter procedure DO Roma Francheska Work Phone: [facility] Start: 03-03-2023 End: 03-03-2023 Patient encounter procedure DO Roma Pritchard Work Phone: [facility] Work Phone: Start: 02-26-2023 End: 02-26-2023 ambulatory BLAYNE MORALES Not Available Start: 01-19-2023 End: 01-19-2023 ambulatory Roma Pritchard Facility:[facility] Start: 01-19-2023 End: 01-19-2023 ambulatory DO Roma Ritchiecarmen Work Phone: [facility] Work Phone: Start: 01-19-2023 End: 01-19-2023 Patient encounter procedure DO Roma Pritchard Work Phone: [facility] Work Phone: Start: 01-06-2023 End: 01-07-2023 ambulatory MARIANA DUONG Facility:[facility] Start: 01-06-2023 End: 01-06-2023 Patient encounter procedure MARIANA DUONG [facility] Start: 01-01-2023 End: 01-01-2023 ambulatory Roma Pritchard Other [employer] Other Start: 01-01-2023 Telephone encounter Roma Pritchard [facility] Start: 12-31-2022 End: 12-31-2022 ambulatory Roma Pritchard Other [employer] Other Start: 12-31-2022 Telephone encounter Roma Pritchard [facility] [place] Start: 12-31-2022 End: 12-31-2022 Patient encounter procedure DO Roma Pritchard Work Phone: [facility] Work Phone: Start: 12-26-2022 End: 12-26-2022 ambulatory Roma Pritchadr Facility:[facility] Start: 12-26-2022 End: 12-26-2022 ambulatory DO Roma Pritchard Work Phone: [facility] Work Phone: Start: 12-26-2022 End: 12-26-2022 Patient encounter procedure DO Roma Pritchard Work Phone: [facility] [place] Work Phone: Start: 12-17-2022 (Post-Op) Post-Op Ar Virgil II [facility] Start: 12-17-2022 End: 12-17-2022 ambulatory Ar M Virgil II [facility] [employer] Other Start: 12-17-2022 End: 12-17-2022 Patient encounter procedure DO Roma Pritchard Work Phone: [facility] Start: 11-19-2022 (Post-Op) Post-Op Ar Meade II [facility] Start: 11-19-2022 End: 11-19-2022 ambulatory Ar Meade II Other [employer] Other Start: 11-06-2022 End: 11-06-2022 ambulatory Ar Virgil II Other [employer] Other Start: 11-06-2022 Telephone encounter Ar Meade II [facility] Start: 11-04-2022 End: 11-04-2022 ambulatory Ar M Meade II Facility:[facility] Start: 11-04-2022 End: 11-04-2022 Admission to same day surgery center DO Roma Francheska Work Phone: [facility] [place] Start: 10-29-2022 End: 10-29-2022 ambulatory Ar Virgil II Other [employer] Other Start: 10-29-2022 Telephone encounter Ar Meade II [facility] Start: 10-24-2022 (Prolonged) Prolonge d Services Ar Virgil II [facility] Start: 10-24-2022 End: 10-24-2022 ambulatory Ar Meade II Other [employer] Other Start: 10-23-2022 Patient encounter procedure Ar Jacksonle II [facility] Start: 10-23-2022 End: 10-23-2022 ambulatory Ar Herman II Facility:[facility] Start: 10-23-2022 End: 10-23-2022 ambulatory DO Roma Pritchard Work Phone: [facility] Work Phone: Start: 10-23-2022 End: 10-23-2022 Discharged Recurring DO Roma Pritchard Work Phone: [facility] C[facility]-Physical Therapy [place] Start: 10-17-2022 End: 10-17-2022 ambulatory Roma Pritchard Facility:[facility] Start: 10-17-2022 End: 10-17-2022 ambulatory DO Roma Pritchard Work Phone: [facility] Work Phone: Start: 10-17-2022 End: 10-17-2022 Patient encounter procedure DO Roma Pritchard Work Phone: [facility] Work Phone: Start: 09-30-2022 End: 09-30-2022 ambulatory Roma Pritchard Other [employer] Other Start: 09-30-2022 Telephone encounter Roma Pritchard [facility] [place] Start: 09-19-2022 End: 09-19-2022 ambulatory Roma Pritchard Other [employer] Other Start: 09-19-2022 Telephone encounter Roma Francheska [facility] Start: 09-18-2022 End: 09-18-2022 ambulatory Ar Jacksonle II Other [employer] Other Start: 09-18-2022 Telephone encounter Ar Jacksonle II [facility] Start: 09-15-2022 End: 09-15-2022 ambulatory Roma Pritchard Facility:[facility] Start: 09-15-2022 End: 09-15-2022 Patient encounter procedure DO Roma Pritchard Work Phone: [facility] [place] Work Phone: Start: 09-10-2022 End: 09-10-2022 ambulatory Roma Pritchard Other [employer] Other Start: 09-10-2022 Telephone encounter Roma Pritchard [facility] [place] Start: 06-26-2022 End: 06-26-2022 ambulatory Roma Pritchard Other [employer] Other Start: 06-26-2022 Telephone encounter Roma Pritchard [facility] [place] Start: 06-12-2022 End: 06-12-2022 ambulatory Roma Pritchard Other [employer] Other Start: 06-12-2022 Telephone encounter Roma Pritchard [facility] [place] Start: 04-15-2022 End: 04-15-2022 ambulatory Roma Pritchard Other [employer] Other Start: 04-15-2022 Telephone encounter Roma Pritchard [facility] [place] [facility] [place] Start: 04-11-2022 End: 04-12-[address] ROMA PRITCHARD Facility:H1 Start: 04-09-2022 End: 05-02-[address] ROMA PRITCHARD Facility:H1 Start: 04-07-2022 End: 04-07-2022 ambulatory Roma Pritchard Other [employer] Other Start: 04-07-2022 Telephone encounter Roma Pritchard [facility] [place] Start: 04-04-2022 End: 04-05-[address] ROMA PRITCHARD Facility:H1 Start: 04-02-2022 End: 04-02-2022 ambulatory Roma Pritchard Other [employer] Other Start: 04-02-2022 Office outpatient vi sit 25 minutes Roma Pritchard [facility] [place] Start: 03-28-2022 End: 03-28-2022 ambulatory DO Roma Pritchard Work Phone: [facility] Work Phone: Start: 03-28-2022 End: 03-28-2022 Patient encounter procedure DO Roma Pritchard Work Phone: [facility]-Lab [place] Work Phone: Start: 03-17-2022 End: 03-17-2022 ambulatory Roma Pritchard Other [employer] Other Start: 03-17-2022 Telephone encounter Roma Pritchard [facility] [place] Start: 03-13-2022 End: 03-13-2022 ambulatory Roma Pritchard Other [employer] Other Start: 03-13-2022 Telephone encounter Roma Pritchard [facility] [place] Start: 03-05-2022 [facility] visit new patient Ar Jackson mariano POTTER [facility] Start: 03-05-2022 End: 03-05-2022 ambulatory DO Roma Pritchard Work Phone: [facility] Work Phone: Start: 03-05-2022 End: 03-05-2022 Patient encounter procedure DO Roma Pritchard Work Phone: [facility]-XRay [facility] Start: 02-25-2022 Office outpatient vi sit 15 minutes Tanna Wilson [facility] [place] Start: 02-25-2022 End: 02-25-2022 ambulatory DO Roma Pritchard Work Phone: [facility] Work Phone: Start: 02-25-2022 End: 02-25-2022 Patient encounter procedure DO Roma Pritchard Work Phone: [facility]-Sleep Lab Work Phone: Start: 01-21-2022 End: 01-21-2022 ambulatory Roma Pritchard Other [employer] Other Start: 01-21-2022 Telephone encounter Roma Pritchard [facility] [place] Start: 01-17-2022 End: 01-17-2022 Patient encounter procedure DO Roma Pritchard Work Phone: [facility] Work Phone: Start: 01-13-2022 End: 01-13-2022 ambulatory Roma Pritchard Other [employer] Other Start: 01-13-2022 Telephone encounter Roma Pritchard [facility] [place] [place] Start: 01-11-2022 End: 01-11-2022 ambulatory DO Roma Pritchard Work Phone: [facility] Work Phone: Start: 01-11-2022 End: 01-11-2022 Patient encounter procedure DO Roma Pritchard Work Phone: [facility]-CT Scan [place] Start: 01-08-2022 End: 01-08-2022 ambulatory Roma Pritcahrd Other [employer] Other Start: 01-08-2022 Telephone encounter Roma Pritchard [facility] [place] Start: 12-31-2021 End: 12-31-2021 ambulatory Roma Pritchard Other [employer] Other Start: 12-31-2021 Telephone encounter Roma Pritchard [facility] [place] Start: 12-30-2021 End: 12-31-[address] ROMA BOUDREAUX Facility:H1 Start: 12-04-2021 End: 12-04-2021 ambulatory Roma Pritchard Other [employer] Other Start: 12-04-2021 Telephone encounter Roma Pritchard [facility] [place] [place] Start: 10-29-2021 End: 11-20-[address] ROMA PRITCHARD Facility:H1 Start: 10-21-2021 End: 10-21-2021 ambulatory Roma Pritchard Other [employer] Other Start: 10-21-2021 Telephone encounter Roma Pritchard [facility] [place] [facility] [place] Start: 10-17-2021 End: 10-18-[address] ROMA PRITCHARD Facility:H1 Start: 10-11-2021 End: 10-11-2021 ambulatory Roma Pritchard Other [employer] Other Start: 10-11-2021 Telephone encounter Roma Pritchard [facility] [place] [place] Start: 10-02-2021 End: 10-02-2021 ambulatory Roma Pritchard Other [employer] Other Start: 10-02-2021 Telephone encounter Roma Pritchard [facility] [place] Start: 09-23-2021 End: 09-23-2021 Patient encounter procedure DO Roma Pritchard Work Phone: [facility] [place] Start: 09-19-2021 End: 09-20-[address] ROMA PRITCHARD Facility:H1 Start: 08-29-2021 End: 08-30-[address] ROMA PRITCHARD Facility:H1 Start: 08-12-2021 End: 08-12-2021 ambulatory Roma Pritchard Other [employer] Other Start: 08-12-2021 Telephone encounter Roma Pritchard [facility] [place] Start: 08-08-2021 End: 08-09-[address] ROMA PRITCHARD [facility] [employer] Other Start: 08-08-2021 Telephone encounter Roma Pritchard [facility] [place] [place] Start: 08-02-2021 End: 08-02-2021 ambulatory Roma Pritchard Other [employer] Other Start: 08-02-2021 Telephone encounter Roma Pritchard [facility] [place] Start: 06-26-2021 End: 06-26-2021 ambulatory Roma Pritchard Other [employer] Other Start: 06-26-2021 Telephone encounter Roma Pritchard [facility] [place] Start: 06-18-2021 End: 06-18-2021 ambulatory Roma Pritchard Other [employer] Other Start: 06-18-2021 Telephone encounter Roma Pritchard [facility] [place] Start: 05-07-2021 End: 05-07-2021 ambulatory Tanna Wilson Other [employer] Other Start: 05-07-2021 Office outpatient vi sit 15 minutes Tanna Wilson [facility] Start: 04-24-2021 End: 04-24-2021 ambulatory Roma Pritchard Other [employer] Other Start: 04-24-2021 Telephone encounter Roma Pritchard [facility] [place] Start: 04-19-2021 End: 04-19-2021 ambulatory Megan Asencio Other [employer] Other Start: 04-19-2021 Office outpatient vi sit 15 minutes Megan Asencio [facility] Start: 03-22-2021 End: 03-22-2021 ambulatory Roma Pritchard Other [employer] Other Start: 03-22-2021 Office outpatient vi sit 25 minutes Roma Pritchard [facility] [place] Start: 12-28-2020 End: 12-28-2020 ambulatory Roma Pritchard Other [employer] Other Start: 12-28-2020 Telephone encounter Roma Pritchard [facility] [place] Start: 12-21-2020 Telephone encounter Roma Pritchard [facility] [place] Start: 12-18-2020 Office outpatient vi sit 25 minutes Roma Pritchard [facility] Procedures Date Procedure Procedure Detail Performing Clinician Start: 03-03-2023 Plain X-ray of right shoulder DO Roma Pritchard Work Phone: Start: 01-19-2023 Screening mammograph y of bilateral breasts DO Roma Pritchard Work Phone: Start: 12-17-2022 Plain X-ray of right hip DO Roma Pritchard Work Phone: Start: 11-04-2022 Total replacement of right hip joint DO Roma Pritchard Work Phone: Start: 11-04-2022 Plain X-ray of right hip DO Roma Pritchard Work Phone: Start: 11-04-2022 Plain X-ray of right hip DO Roma Pritchard Work Phone: Start: 10-17-2022 Antibody screen Roma Xavier rocky Comment on above: Order Comment: Date of Surgery: [id number] Result Comment: PERF ORMED BY: [address] [id number] PATHOLOGIST [employer] UNIT OPERATOR CIRA GRAHAM M.D. Start: 03-28-2022 Urine culture DO Roma Pritchard Work Phone: Start: 03-05-2022 Plain X-ray of right hip DO Roma Pritchard Work Phone: Start: 01-17-2022 Screening mammograph y of bilateral breasts DO Roma Pritchard Work Phone: Start: 01-11-2022 CT of chest without contrast DO Roma Pritchard Work Phone: Breast surgery (qual ifier value) MARIANA DUONG Colonoscopy MARIANA DUONG Insertion of hip prosthesis MARIANA DUONG Ligation of fallopian tube J NEIDA DUONG Urine culture DO Roma high Work Phone: Plan of Treatment Date Care Activity Detail Author Start: 03-25-2023 [facility] Start: 11-04-2022 End: 11-04-2022 [facility] Start: 10-17-2022 [facility] Start: 03-28-2022 [facility] Bacteria identified in Urine by Culture [facility] Glucose measurement estimated from glycated hemoglobin [facility] Glucose measurement estimated from glycated hemoglobin [facility] Hemoglobin A1c/Hemog lobin.total in Blood [facility] Immunizations Immunization Date Immunization Notes Care Provider Ricardo bauer 12-23-2022 influenza virus vaccine, unspecified formulation MARIANA DUONG [facility] 12-04-2022 Flu Shot - Documentation Purposes Only Roma Pritchard Other [employer] Other 06-13-2022 Prevnar 20 Roma Pritchard Other [employer] [facility] [employer] Other 11-23-2021 COVID-19 mRNA Bivale nt Booster (Pfizer) DO Roma Pritchard Work Phone: [facility] 11-20-2021 influenza, seasonal, injectable Roma Pritchard Other [employer] Other 11-20-2021 influenza virus vaccine, unspecified formulation MARIANA DUONG [facility] 12-12-2020 COVID-19 Vaccine Pfi zer - Documentation Purposes Only Roma Pritchard Other [facility] 12-04-2020 influenza, seasonal, injectable Roma Pritchard Other [employer] Other 11-07-2020 influenza virus vaccine, unspecified formulation MARIANA DUONG [facility] 07-11-2020 Kenalog -40 mg Roma Pritchard Other [employer] Other 05-22-2020 COVID-19 Vaccine Pfi zer - Documentation Purposes Only Roma Pritchard Other [facility] 05-16-2020 COVID-19 Vaccine Pfi zer - Documentation Purposes Only Roma Pritchard Other [facility] 05-12-2020 COVID-19 mRNA, Comirnaty (Pfizer) DO Roma Pritchard Work Phone: [facility] 05-01-2020 COVID-19 Vaccine Pfi zer - Documentation Purposes Only Roma Pritchard Other [facility] 04-25-2020 SARS-CoV-2 (COVID-19 ) mRNA BNT-162b2 vax MARIANA DUONG [facility] 12-09-2019 influenza, seasonal, injectable Roma Pritchard Other [employer] Other 12-09-2019 influenza virus vaccine, unspecified formulation MARIANA DUONG [facility] 11-24-2019 influenza virus vaccine, unspecified formulation MARIANA DUONG [facility] 01-12-2019 Kenalog -40 mg Roma Pritchard Other [employer] Other 12-31-2017 zoster vaccine recombinant Roma Pritchard Other [facility] 10-31-2017 zoster vaccine recombinant Roma Pritchard Other [facility] 10-31-2017 tetanus toxoid, redu cuba diphtheria toxoid, and acellular pertussis vaccine, adsorbed Roma Pritchard Other [facility] 11-27-2016 zoster vaccine, live Roma hidalgo Other [facility] 11-21-2016 tetanus toxoid, redu cuba diphtheria toxoid, and acellular pertussis vaccine, adsorbed Roma Pritchard Other [facility] Payers Date Payer Category Payer Self-pay [id number] 1958 [facility] [id number] 1958 Medicare [id number] 2.1 [id number] 1955 Unknown [id number] 2.16.84 0.1.572173.3.579.2.593 1955 Unknown [id number] 2.16.84 0.1.668613.3.579.2.593 1956 Unknown [id number] 2.16.84 0.1.104357.3.579.2.593 1956 Unknown [id number] 2.16.84 0.1.151877.3.579.2.593 1956 Unknown [id number] 2.16.84 0.1.201009.3.579.2.593 1956 Unknown [id number] 2.16.84 0.1.257282.3.579.2.593 1956 Unknown [id number] 2.16.84 0.1.540965.3.579.2.593 1956 Unknown [id number] 2.16.84 0.1.595286.3.579.2.593 1956 Unknown [id number] 2.16.84 0.1.769038.3.579.2.593 1956 Unknown [id number] 2.16.8 40.1.834934.3.579.2.727 1956 Unknown [id number] 2.16.8 40.1.063929.3.579.2.727 1956 Unknown [id number] 2.16.840 .1.999902.3.579.2.1259 Unknown [id number] 2.16.8 40.1.933673.3.579.2.531 Unknown [id number] 2.16.8 40.1.852235.3.579.2.531 Unknown [id number] 2.16.8 40.1.889054.3.579.2.531 Unknown [id number] 2.16.8 40.1.389194.3.579.2.531 Unknown [id number] 2.16.8 40.1.745605.3.579.2.531 Unknown [id number] 2.16.8 40.1.580517.3.579.2.531 Unknown [id number] 2.16.8 40.1.727478.3.579.2.531 Unknown [id number] 2.16.8 40.1.474911.3.579.2.531 Unknown [id number] 2.16.8 40.1.013902.3.579.2.531 Unknown [id number] 2.16.8 40.1.646342.3.579.2.531 Social History Date Type Detail Facility Unknown if ever smoked [employer] Other Sex Assigned At [facility] Start: 12-26-2019 End: 11-04-2022 Tobacco smoking status MEIS Ex-smoker (finding) [facility] Start: 1955 Sex Assigned At Female F [facility] Medical Equipment Procedure Code Equipment Code Equipment Origin al Text Equipment Identifier Dates Arthroplasty, hip, total, anterior approach Acetabular shell [id number] FDA Start: 11-04-2022 Arthroplasty, hip, total, anterior approach Ceramic femoral head prosthesis ()[id number] FDA Start: 11-04-2022 Arthroplasty, hip, total, anterior approach Coated hip femur prosthesis, modular ()[id number] FDA Start: 11-04-2022 Arthroplasty, hip, total, anterior approach Non-constrained polyethylene acetabular liner ()[id number] FDA Start: 11-04-2022 Goals Date Patient Goal Desired Activity /State Functional Status Date Assessment Result Facility 01-06-2023 Functional Status N/A [facility] Clinical Notes 12-18-2020 to 04-02-2023 Note Date & Type Note Facility 04-02-2023 Evaluation note Encounter Date Diagnosis Assessment Notes Mar, Hyperlipidemia (ICD-10 - E78.5) Discussed cholesterol results with patient today. Total is 162. HDL is 83. LDL is 60. Triglycerides are 95. VLDL is 19 which is very good. I would like her to continue with above medication and continue with what she is doing as far as her diet and staying active. Mar, Hyperglycemia (ICD-10 - R73.9) Discussed blood sugar results with patient today. Total is 96. HgA1C is 5.6. She is told that her blood sugar is doing well. I would like her to continue to monitor her intake of carbs and sugars. Continue to stay active. She is going to meet with a nutrition/dieti venice to discuss her diet more. All questions she has were answered. Cautioned her against eating too many carbs. Mar, Vitamin D deficiency (ICD-10 - E55.9) Her Vitamin D level is 30.6. She is taking Vitamin D3 once a day and a Vitamin 600+D3 daily. I did recommend she take two of the D3 daily. Mar, Hypertension (ICD-10 - I10) She presents with home blood pressure readings that range between 117-134 over 70-87. She was told that these readings are very good. I did sign a form that will allow her to get a blood pressure cuff through her insurance company. She voices that she found when she was taking Meloxicam that her blood pressure readings were elevated and when she stopped this medicine it went down. I did encourage her to avoid taking this medication if she does not need it as it can raise the blood pressure. Side effects/risks/b enefits of Meloxicam were discussed. Mar, Sleep apnea (ICD-10 - G47.30) She does continue to use and benefit from her CPAP machine. We discussed that her CO2 level was elevated on her blood work at 33.1. We would expect someone that uses a CPAP machine to have an elevated CO2 level. This is not concerning, reassurance given. Mar, Anxiety (ICD-10 - F41.9) She does continue to use and benefit from the Xanax. She can call when she needs a refill on the Xanax. An OARRS report was printed and reviewed, no discrepancies noted. Frequent appointments needed due to addiction potential of medication. Pain inventory sheet completed and reviewed if opiod medication given. Pain contract is on file if pertinent. Patient will have office visits every three months for evaluation or sooner if needed. I discussed addiction potential of medication with the patient. Discussed with the patient and provided a treatment plan including the use of non-opiod analgesics and non-pharmacolog ical intervention with patient if treated for pain. We have discussed realistic benefits and known risks of opiod/controlle d therapy and the expected benefits for both pain and function. These benefits outweigh the risks. Patient has been counselled on the dangers of combining opiods/controll ed prescriptions with alcohol or other sedatives and counseled on the safe storage and disposal of opiods/controll ed prescriptions. Do not drive or operate heavy machinery after taking opiod/controlle d medication. I have verified that no current substance abuse treatments are being prescribed. Mar, GERD (gastroesophageal reflux disease) (ICD-10 - K21.9) Mar, Anemia (ICD-10 - D64.9) Her HGB is 13.2. Iron is 77. Ferritin is 19.7. % saturation is 15.5. She is taking the Iron every other day and her Vitamin C five days a week. She can continue to take her medication as she has been. Mar, Vitamin B12 deficiency (ICD-10 - E53.8) She is taking her B12 Thursday through Thursday. Her Vitamin B12 level is 595. Folate is 15.8. Mar, alf use of drug (ICD-10 - Z79.899) Mar, Presence of right artificial hip joint (ICD-10 - Z96.641) She has recovered well from her hip replacement. She is back to the gym and is exercising regularly. Mar, Shoulder pain, right (ICD-10 - M25.511) She had an injection in her right shoulder done by Dr. Shaffer. She voices that she finished PT yesterday and has exercises that she can do at home. She is exercising regularly at the gym and at home. Mar, Thyroid nodule (ICD-10 - E04.1) I did advise her that the thyroid ultrasound done in Mar (2022) showed a 7 mm nodule in the lower left lobe that the radiologist said based on the appearance and size no follow up was needed. I did recommend that a thyroid ultrasound be done to reassess this, but she refuses and states she is not having any trouble with her thyroid, so she declines to have a repeat thyroid ultrasound done. Her TSH is normal at this time at 1.73. Mar, Pulmonary nodules (ICD-10 - R91.8) We discussed that her last CT of the chest was done 01/11/22 and should be repeated one year from now. Mar, Weight loss (ICD-10 - R63.4) She is keeping track of her food and has a food diary. She is exercising daily either at home or the gym. She is going to see a rawhide trimmer to see if she can learn how to count calories. She can be anywhere from 141-142 on her home scale. I did discuss her BMI with her today and explained to her that her BMI is not in the worrisome range but we would like to see it between 24- 25. You have to have some fat to fight off infections. Goal weight for her would be 131. She voices that she was down to 138 pounds when her husbands health was poor and he was in the [place]. She would prefer to stay around 141 pounds which is fine. She does resistance training, walks and is running on her treadmill now. Mar, Kidney stone (ICD-10 - N20.0) She voices that she recently saw Mariana Duong PA-C at [facility] for evaluation and was told she has a 3 mm kidney stone but nothing was done for this. She is now having pain in her kidney and wonders if she should have a KUB x-ray done or not. I did recommend that she contact Mariana QUIROZ to discuss a KUB x-ray and to discuss the calcium supplement. She is to ask Mariana Duong PA-C at [facility] if she should be taking a Calcium+D supplement or not. Mar, Sacroiliac strain (ICD-10 - S39.012A) She admits she was running on her treadmill this past weekend for three minutes on an incline of 5. I did advise her that where her pain is is not where the kidney pain would be, this is where her sacroiliac is. Recommend she do gentle walking, take it easy. She will keep me posted with how she is doing. I still want her to contact urology to discuss a KUB x-ray to be sure that this is not related to her kidney stone. Mar, Leg cramps (ICD-10 - R25.2) No sign of electrolyte deficiency on lab work. Recommend she drink plenty of water daily. Mar, Osteoporosis screening (ICD-10 - Z13.820) Will provide her with an order to have a DEXA scan done. Mar, Abnormal findings on diagnostic imaging of musculoskeletal system (ICD-10 - R93.7) Mar, Other I did sign her form allowing her to swim in the pool at physical therapy. She voices that she feels hungry all the time. I did recommend that she eat plenty of protein which is what the body needs. This should allow her to feel full and her body can use the fuel. She should look into the Mediterranean Diet. [employer] Other 01-15-2024 Evaluation note* Encounter Date Diagnosis Assessment Notes Treatment Notes Treatment Clinical Notes Feb, Obstructive sleep apnea (ICD-10 - G47.33) Fortunately, the patient is using and benefiting from treatment. Download was reviewed with patient, Current pressure is controlling apnea well, And we will make no changes at this time. A prescription was sent to the [employer] for new supplies throughout the year. She was encouraged to continue to use her machine nightly, throughout the entire night as this does provide clinical benefit. She will follow-up in the sleep clinic in 1 year or sooner if problems. Feb, BMI 26.0-26.9,adult (ICD-10 - Z68.26) She is encouraged to continue efforts at progressive weight loss. Decreasing body weight can have substantial impact on sleep apnea and overall general health. Feb, Other Call if any questions or problems. Patient is advised to work on healthy diet choices and appropriate servings, weight control, regular exercise as directed, and reduce fat intake. Use machine regularly, and keep up with mask changes as needed. Call if problems with mask toleration, increased sleepiness, or poor response to treatment. . [employer] Other 01-10-2024 Evaluation note* Encounter Date Diagnosis Assessment Notes Treatment Notes Treatment Clinical Notes Feb, Rotator cuff syndrome, right (ICD-10 - M75.101) [employer] Other 01-09-2024 Evaluation note* Encounter Date Diagnosis Assessment Notes Treatment Notes Treatment Clinical Notes Feb, Rotator cuff syndrome, right (ICD-10 - M75.101) Images were reviewed with the patient and possible pain etiologies were discussed. Many of the patient's symptoms are coming from injury to the rotator cuff musculature and tendons as well is biceps tendinitis. Treatment modalities were discussed including oral anti-inflammatories, corticosteroid injections, physical therapy. We discussed that patient's symptoms will most likely resolve with conservative management. If the patient's symptoms persist, we will consider obtaining an MRI as well as possible surgery. Physical therapy was emphasized to the patient and performing the exercises on their own in addition to formal therapy. All questions answered and patient agreed with the treatment plan. Patient given order for physical therapy. We discussed an injection at this time and patient wishes to proceed. Under sterile condition, 1 cc of Kenalog/ 4cc bupivacaine were injected into the subacromial space. Patient tolerated the procedure well. Patient is to follow up 6 weeks after physical therapy Feb, Biceps tendonitis, right (ICD-10 - M75.21) Feb, Acute pain of right shoulder (ICD-10 - M25.511) [facility] Other 11-14-2023 Hospital Discharge instructions Patient Education 01/06/2023 08:43:21 Dietary Guidelines to Help Prevent Kidney Stones Dietary Guidelines to Help Prevent Kidney Stones Kidney stones are deposits of minerals and salts that form inside your kidneys. Your risk of developing kidney stones may be greater depending on your diet, your lifestyle, the medicines you take, and whether you have certain medical conditions. Most people can lower their chances of developing kidney stones by following the instructions below. Your dietitian may give you more specific instructions depending on your overall health and the type of kidney stones you tend to develop. What are tips for following this plan? Reading food labels Choose foods with no salt added or low-salt labels. Limit your salt (sodium) intake to less than 1,500 mg a day. Choose foods with calcium for each meal and snack. Try to eat about 300 mg of calcium at each meal.Foods that contain 200 500 mg of calcium a serving include: ?8 oz (237 mL) of milk, ekpnasy-jqqvsjitmggf-qpmhl milk, and calcium- fortifiedfruit juice. Calcium-fortified means that calcium has been added to these drinks. ?8 oz (237 mL) of kefir, yogurt, and soy yogurt. ?4 oz (114 g) of tofu. ?1 oz (28 g) of cheese. ?1 cup (150 g) of dried figs. ?1 cup (91 g) of cooked broccoli. ?One 3 oz (85 g) can of sardines or mackerel. Most people need 1,000 1,500 mg of calcium a day. Talk to your dietitian about how much calcium is recommended for you. Shopping Buy plenty of fresh fruits and vegetables. Most people do not need to avoid fruits and vegetables, even if these foods contain nutrients that may contribute to kidney stones. When shopping for convenience foods, choose: ?Whole pieces of fruit. ?Pre-made salads with dressing on the side. ?Low-fat fruit and yogurt smoothies. Avoid buying frozen meals or prepared deli foods. These can be high in sodium. Look for foods with live cultures, such as yogurt and kefir. Choose high-fiber grains, such as whole-wheat breads, oat bran, and wheat cereals. Cooking Do not add salt to food when cooking. Place a salt shaker on the table and allow each person to addhis or her own salt to taste. Use vegetable protein, such as beans, textured vegetable protein (TVP), or tofu, instead of meat inpasta, casseroles, and soups. Meal planning Eat less salt, if told by your dietitian. To do this: ?Avoid eating processed or pre-made food. ?Avoid eating fast food. Eat less animal protein, including cheese, meat, poultry, or fish, if told by your dietitian. To dothis: ?Limit the number of times you have meat, poultry, fish, or cheese each week. Eat a diet free of meat at least 2 days a week. ?Eat only one serving each day of meat, poultry, fish, or seafood. ?When you prepare animal protein, cut pieces into small portion sizes. For most meat and fish, one serving is about the size of the palm of your hand. Eat at least five servings of fresh fruits and vegetables each day. To do this: ?Keep fruits and vegetables on hand for snacks. ?Eat one piece of fruit or a handful of berries with breakfast. ?Have a salad and fruit at lunch. ?Have two kinds of vegetables at dinner. Limit foods that are high in a substance called oxalate. These include: ?Spinach (cooked), rhubarb, beets, sweet potatoes, and Macedonian chard. ?Peanuts. ?Potato chips, mexican fries, and baked potatoes with skin on. ?Nuts and nut products. ?Chocolate. If you regularly take a diuretic medicine, make sure to eat at least 1 or 2 servings of fruits or vegetables that are high in potassium each day. These include: ?Avocado. ?Banana. ?[place], prune, carrot, or tomato juice. ?Baked potato. ?Cabbage. ?Beans and split peas. Lifestyle Drink enough fluid to keep your urine pale yellow. This is the most important thing you can do. Spread your fluid intake throughout the day. If you drink alcohol: ?Limit how much you use to: ?0 1 drink a day for women who are not . ?0 2 drinks a day for men. ?Be aware of how much alcohol is in your drink. In the [place] one drink equals one 12 oz bottle of beer (355 mL), one 5 oz glass of wine (148 mL), or one 1 oz glass of hard liquor (44 mL). Lose weight if told by your health care provider. Work with your dietitian to find an eating plan and weight loss strategies that work best for you. General information Talk to your health care provider and dietitian about taking daily supplements. You may be told thefollowing depending on your health and the cause of your kidney stones: ?Not to take supplements with vitamin C. ?To take a calcium supplement. ?To take a daily probiotic supplement. ?To take other supplements such as magnesium, fish oil, or vitamin B6. Take ikue-gnu-gzscxxi and prescription medicines only as told by your health care provider. These include supplements. What foods should I limit? Limit your intake of the following foods, or eat them as told by your dietitian. Vegetables Spinach. Rhubarb. Beets. Canned vegetables. Pickles. Olives. Baked potatoes with skin. Grains Wheat bran. Baked goods. Salted crackers. Cereals high in sugar. Meats and other proteins Nuts. Nut butters. Large portions of meat, poultry, or fish. Salted, precooked, or cured meats, such as sausages, meat loaves, and hot dogs. Dairy Cheese. Beverages Regular soft drinks. Regular vegetable juice. Seasonings and condiments Seasoning blends with salt. Salad dressings. Soy sauce. Ketchup. Barbecue sauce. Other foods Canned soups. Canned pasta sauce. Casseroles. Pizza. Lasagna. Frozen meals. Potato chips. Spanish fries. The items listed above may not be a complete list of foods and beverages you should limit. Contact a dietitian for more information. What foods should I avoid? Talk to your dietitian about specific foods you should avoid based on the type of kidney stones youhave and your overall health. Fruits Grapefruit. The item listed above may not be a complete list of foods and beverages you should avoid. Contact adietitian for more information. Summary Kidney stones are deposits of minerals and salts that form inside your kidneys. You can lower your risk of kidney stones by making changes to your diet. The most important thing you can do is drink enough fluid. Drink enough fluid to keep your urine pale yellow. Talk to your dietitian about how much calcium you should have each day, and eat less salt and animal protein as told by your dietitian. This information is not intended to replace advice given to you by your health care provider. Make sure you discuss any questions you have with your health care provider. Document Revised: 10/21/2021 Document Reviewed: 10/21/2021 [employer] Patient Education 2022 [place]. Follow Up Care 01/02/2022 10:12:49 With:MARIANA DUONG PA-C, URL Address: [address] [facility] [place] [address] When: Unknown [facility] [employer] 11-08-2023 Evaluation note* Encounter Date Diagnosis Assessment Notes Treatment Notes Treatment Clinical Notes Dec, Anxiety (ICD-10 - F41.9) [facility] Other 11-08-2023 Evaluation note* Encounter Date Diagnosis Assessment Notes Treatment Notes Treatment Clinical Notes Dec, Vitamin D deficiency (ICD-10 - E55.9) Continue with above medication daily as directed. Vitamin D level was 38.1. Dec, Anemia (ICD-10 - D64.9) She tried to donate blood a couple of weeks ago but her HGB was low. She is taking the Iron daily and her HGB is 12.4. Iron is 51. % saturation is 11.6. Ferritin is 31.9. I did recommend that she decrease her iron to every other day but continue with the Vitamin C daily to help her body absorb the iron better. Dec, Vitamin B12 deficiency (ICD-10 - E53.8) Her B12 is 351. Folate is 10.7. She has not been taking any B12 so I would like her to restart the B12 Thursday through Thursday. Dec, Hypertension (ICD-10 - I10) Her blood pressure today was 117/98. I did ask her to monitor her blood pressure daily and call me with several readings. I would like to see her diastolic reading lower. She will call later this week. Pt called back shortly after her visit with a blood pressure reading of 119/76 which is controlled. Dec, Anxiety (ICD-10 - F41.9) She voices that she is rarely using the Xanax but still wants to have it available incase it is needed. When she takes it the medication does work for her. She would like to decrease her Wellbutrin. I will have her switch to sustained release 100 MG daily for one month and then have her call with progress and we can continue to wean down from there. Guidance is given on how to take this medication. An OARRS report was printed and reviewed, no discrepancies noted. Frequent appointments needed due to addiction potential of medication. Pain inventory sheet completed and reviewed if opiod medication given. Pain contract is on file if pertinent. Patient will have office visits every three months for evaluation or sooner if needed. I discussed addiction potential of medication with the patient. Discussed with the patient and provided a treatment plan including the use of non-opiod analgesics and non-pharmacological intervention with patient if treated for pain. We have discussed realistic benefits and known risks of opiod/controlled therapy and the expected benefits for both pain and function. These benefits outweigh the risks. Patient has been counselled on the dangers of combining opiods/controlled prescriptions with alcohol or other sedatives and counseled on the safe storage and disposal of opiods/controlled prescriptions. Do not drive or operate heavy machinery after taking opiod/controlled medication. I have verified that no current substance abuse treatments are being prescribed. Dec, Other She has returne d to working out at the gym and walks on her treadmill at home for 35 minutes every other day. She voices that Dr. Herman does not need to see her back for one year. She did well with her right hip replacement. 10:39 AM - 10:49 AM [employer] Other 10-25-2023 Evaluation note* Encounter Date Diagnosis Assessment Notes Treatment Notes Treatment Clinical Notes Nov, Status post total hip replacement, right (ICD-10 - Z96.641) Nov, Aftercare following joint replacement surgery (ICD-10 - Z47.1) Nov, Presence of right artificial hip joint (ICD-10 - Z96.641) Nov, Other [facility] on 11/04/2022 Doing well Patient may continue increasing activities as tolerated. Continue taking quvj-glc-ugmnqsc anti-inflammatorie s as needed for assistance with swelling and pain associated with the operative extremity. Follow-up at 1 year postop for repeat examination and repeat x-rays. Patient will call with any questions or concerns. [employer] Other 09-27-2023 Evaluation note* Encounter Date Diagnosis Assessment Notes Treatment Notes Treatment Clinical Notes Oct, Status post total hip replacement, right (ICD-10 - Z96.641) Oct, Aftercare following joint replacement surgery (ICD-10 - Z47.1) Oct, Presence of right artificial hip joint (ICD-10 - Z96.641) Oct, Other [facility] at [facility] on 11/04/2022 Doing well Patient may continue activities as tolerated. They are weightbearing as tolerated to the operative extremity. Patient is progressing with home health & physical therapy. We made the shared decision to continue physical therapy. Patient instructed to continue weaning off narcotic pain medication. They can continue taking Celebrex and Tylenol as needed for assistance with swelling and pain associated with the operative extremity. Patient to continue their aspirin DVT prophylaxis as previously instructed. This includes wearing their DINORA hose on the operative extremity for another two weeks. Follow-up in 4 weeks for repeat examination and x-rays of the right hip. [employer] Other 09-01-2023 Evaluation note* Encounter Date Diagnosis Assessment Notes Treatment Notes Treatment Clinical Notes Oct, Other [facility] 1. H and P date: 10/23/2022 2. Diagnosis: Right hip primary osteoarthritis 3. Counseling: Patient received counseling at their history and physical. 4. Coordination of care: The patient was discussed at today's total joints meeting with anesthesia, OR staff, and implant reps in an effort to coordinate the patient's care during the perioperative period. The anesthesiologist was involved in discussions regarding the patient's pain management such as regional blocks, anesthesia plans the day of surgery such as general versus spinal, as well as a final review of lab work to ensure the patient could proceed with surgery safely. The finance insurance manager was vital for surgery timing and scheduling purposes. The implant rep was also available for necessary discussions regarding preoperative templates that were created on preoperative x-rays to ensure the appropriate implants and sizes of implants would be available the day of surgery. The patient's discharge plan was also discussed and the final decision was confirmed. 5. Medication Changes: None 6. Lab Tests: The patient's screening tests including albumin levels, vitamin D levels, hemoglobin, hemoglobin A1c, cotinine serum level, and MRSA nasal cultures were all reviewed to ensure appropriate perioperative care can be performed. This included selection of perioperative antibiotics, surgical dressing, and any contact precautions that may need to be enacted. The patient's presurgical testing lab work was also reviewed. This included a CBC, BMP, UA, fructosamine, and a blood type and screen. This lab work was discussed with anesthesia during today's total joints meeting to ensure the patient could proceed with surgery safely. 7. Review of reports/records: The surgical clearance information provided by the patient's PCP and if deemed necessary, other specialists, was reviewed. Any recommendations made by these care providers were taken into consideration for the patient's perioperative and postoperative treatment plans. Prolonged services time spent: 31 minutes [employer] Other 08-31-2023 Evaluation note* Encounter Date Diagnosis Assessment Notes Treatment Notes Treatment Clinical Notes Sep, Primary osteoarthritis of right hip (ICD-10 - M16.11) Sep, Other 1. Right ABBY Home Medications - DVT prophylaxis: Aspirin - NSAID: Celebrex - Disposition: Same-day discharge-her and her daughters will be there to help her postop Joints Meeting Checklist - Pharmacy: [facility] to bed - Approach/Technique: anterior, Upper Tract bed - Implants: Avenir Complete/G7; - Anesthesia: general versus spinal - Blocks: Fascia iliaca - Preop Antibiotics: Ancef - TXA: yes-systemic - Positioning/OR Bed: supine on Upper Tract bed - Intraop X-ray: yes - Maxwell: no - Tourniquet: no - Antibiotic powder: yes-2 grams of vanc - Antibiotic cement: no - Dressing: Zipline and Aquacel The patient has tried and failed all conservative treatment options to include: activity modification, physical therapy, oral anti-inflammatories , and intra-articular steroid injections. We will move forward with the definitive treatment option and schedule the patient for the above mentioned procedure. The risks involved with surgery and postoperative complications were discussed in relation to the patient's non-modifiable risk factors including but not limited to the following: Hypertension Hyperlipidemia All questions were answered after discussing these increased risks. The patient voiced understanding of these increased risks and still wishes to proceed with surgery. The risks involved with surgery and postoperative complications were discussed in relation to the patient's modifiable risk factors including but not limited to the following: None identified at this time All questions were answered after discussing these increased risks. The patient voiced understanding of these increased risks and still wishes to proceed with surgery. The risks and benefits of the surgery were reviewed in depth with the patient, and all questions were answered. Informed consent was obtained. The risks and potential complications of the surgery include, but are not limited to: avascular necrosis, nonunion, nerve injury, blood vessel injury, excessive bleeding, blood transfusion, infection, persistent pain, loss of fixation, failure of the implant, deep vein thrombosis, pulmonary embolus, loss of limb, fracture, leg length discrepancy, and . Patient voiced understanding of these risks and has elected to proceed with the above surgery. [employer] Other 08-08-2023 Evaluation note* Encounter Date Diagnosis Assessment Notes Treatment Notes Treatment Clinical Notes Sep, Anxiety (ICD-10 - F41.9) [facility] Other 07-28-2023 Evaluation note* Encounter Date Diagnosis Assessment Notes Treatment Notes Treatment Clinical Notes Aug, Primary osteoarthritis of right hip (ICD-10 - M16.11) [facility] Other 07-27-2023 Evaluation note* Encounter Date Diagnosis Assessment Notes Treatment Notes Treatment Clinical Notes Aug, Primary osteoarthritis of right hip (ICD-10 - M16.11) [facility] Other 05-04-2023 Evaluation note* Encounter Date Diagnosis Assessment Notes Treatment Notes Treatment Clinical Notes June, Anxiety (ICD-10 - F41.9) She was trying to wean off the Xanax and was doing well but due to her husbands health she has been under a great deal of stress so she has needed to use the Xanax more than she would have liked. She does need a refill on the Xanax and is not ready to wean off the medication. I will see her back in three months. Side effects/risks/seamus efits of medication were reviewed. An OARRS report was printed and reviewed, no discrepancies noted. Frequent appointments needed due to addiction potential of medication. Pain inventory sheet completed and reviewed if opiod medication given. Pain contract is on file if pertinent. Patient will have office visits every three months for evaluation or sooner if needed. I discussed addiction potential of medication with the patient. Discussed with the patient and provided a treatment plan including the use of non-opiod analgesics and non-pharmacological intervention with patient if treated for pain. We have discussed realistic benefits and known risks of opiod/controlled therapy and the expected benefits for both pain and function. These benefits outweigh the risks. Patient has been counselled on the dangers of combining opiods/controlled prescriptions with alcohol or other sedatives and counseled on the safe storage and disposal of opiods/controlled prescriptions. Do not drive or operate heavy machinery after taking opiod/controlled medication. I have verified that no current substance abuse treatments are being prescribed. June, Thyroid nodule (ICD-10 - E04.1) We discussed that she should have a thyroid ultrasound repeated in Mar (2023). She is not having any trouble swallowing any longer. June, Other 9:25 AM - 9:31 AM [facility] Other 04-20-2023 Evaluation note* Encounter Date Diagnosis Assessment Notes Treatment Notes Treatment Clinical Notes May, Hyperlipidemia (ICD-10 - E78.5) [facility] Other 02-13-2023 Evaluation note* Encounter Date Diagnosis Assessment Notes Treatment Notes Treatment Clinical Notes Mar, Cervical pain (ICD-10 - M54.2) Mar, Dysphagia (ICD-10 - R13.10) [facility] Other 02-08-2023 Evaluation note* Encounter Date Diagnosis Assessment Notes Treatment Notes Treatment Clinical Notes Mar, Hyperlipidemia (ICD-10 - E78.5) Discussed cholesterol results with patient today. Total is 186. HDL is 76. LDL is 84. Triglycerides are 132. VLDL is 26. Her readings are at goal. Continue with above medication daily. Mar, Hyperglycemia (ICD-10 - R73.9) Discussed blood sugar results. Glucose is 89. HgA1C has gone up from 5.8 to 6.1 which is higher than I would like to see. She admits that she has been eating noodles, potatoes, sweets. I did recommend that she cut back on her intake of carbs and sugars. She is very active, she works out daily and should continue with this. She voices that she is hungry all the time and is told that this is likely caused by all the sugar she is eating, this makes her body crave the sugar. Once she takes this out of her diet she may find that she is not as hungry. Mar, Arthritis (ICD-10 - M19.90) She does continue with the above medication daily. Mar, GERD (gastroesophageal reflux disease) (ICD-10 - K21.9) She is taking the Nexium daily. Mar, Vitamin D deficiency (ICD-10 - E55.9) Her Vitamin D level was 41.1. Continue with above medication. Mar, Anemia (ICD-10 - D64.9) Her Iron is 82. Ferritin is 31.5. I would like her to increase her Iron to five days a week. Mar, Hip pain (ICD-10 - M25.559) She had an injection in her right hip which worked but she voices that she is not right yet. She feels that the ankle, knee and hip are not right yet. If she had pain shooting down her leg then it wasn't due to her hip. She cannot walk up the stairs carrying anything. She would like to attend PT so an order is provided. She does take Celebrex daily. Mar, Pulmonary nodules (ICD-10 - R91.8) We discussed that she had a CT scan of the chest done 01/11/22 which showed stable tiny nodular densities. No new lung nodules. No new findings. This was compared to 10/28/2018. I did recommend that she take deep breaths as often as she can to prevent atelectasis. Mar, Chest pain (ICD-10 - R07.9) She voices that while sitting in her chair she has had some chest pain and feels like someone is sitting on her chest but she is able to work out daily and her heart rate will get up to 156 bpm and she does not have any chest pain. She feels good while she is working out, states that it is a natural stress reliever for her. The next time this happens I asked her to go for a walk or do something that raises her heart rate and see if this resolves or makes it worse. If she breaks out in a sweat or has chest pain then she should go to the ER for evaluation. Mar, Anxiety (ICD-10 - F41.9) An OARRS report was reviewed no discrepancies noted. She does continue to use and benefit from the Xanax when needed. I will see her back in three months. Frequent appointments needed due to addiction potential of medication. Side effects/risks/benefits of medication were reviewed. She voices that she was thinking of stopping the Wellbutrin but has decided she should continue with the medication because of two stressors she has. Mar, Cervical pain (ICD-10 - M54.2) I will provide her with an order to have an xray done of her neck to rule out spur or abnormalities that would impede her swallowing. Mar, alf use of drug (ICD-10 - Z79.899) Mar, Hypertension (ICD-10 - I10) Mar, Foot pain, right (ICD-10 - M79.671) She voices that since she broke her foot she has had trouble with her foot, knee and hip. She used a scooter to get around and this hurt her right knee which now bothers her as well. She would like to attend PT. I will provide her with an order. Mar, Vitamin B12 deficiency (ICD-10 - E53.8) Her B12 is 540. Folate is 13.6. She is to continue with her B12 as directed. Mar, Headache (ICD-10 - R51.9) She was asked to avoid Excedrin because it can cause rebound headaches. She voices that Tylenol does the same thing. We discussed that her neck could be contributing to her headaches. Mar, Dysphagia (ICD-10 - R13.10) She voices that sometimes she feels like things get stuck in her throat or the back of her throat. She is taking the Nexium daily. I would like to order an Upper GI to rule out abnormalities or have her see a refrigeration tech to discuss an EGD. Right now she would like to wait and keep track of what is getting stuck and how often it happens. She has to cough or massage the neck to get things to go down. She is not sure if it is positional. I did recommend she have the EGD. She is going to wait. She will let me know if she wants an EGD. Her TSH was normal at 1.25. Mar, Other White blood gianfranco ls were noted in the urine which can be normal for some women but her urine was not infected. She had calcium oxalate crystals in her urine and she has a history of kidney stones. I did recommend that she research a calcium oxalate diet and avoid foods that are high in this to lower her risk of forming a kidney stone. She would like to take Tumeric but was asked to check with her trusted pharmacist as to whether or not there is an interaction with her other medications. [facility] Other 01-19-2023 Evaluation note* Encounter Date Diagnosis Assessment Notes Treatment Notes Treatment Clinical Notes Feb, Anxiety (ICD-10 - F41.9) [facility] Other 01-11-2023 Evaluation note* Encounter Date Diagnosis Assessment Notes Treatment Notes Treatment Clinical Notes Feb, Right hip pain (ICD-10 - M25.551) Feb, Primary osteoarthritis of right hip (ICD-10 - M16.11) Feb, Other 1. We had a rebel g discussion with the patient today concerning their right hip osteoarthritis. The radiographs do show osteoarthritis of the hip. At this time the patient would like to avoid surgical intervention. We did discuss the risk and benefits of surgical versus nonoperative management. The patient would like to proceed with nonoperative management. We discussed that our options include injections, physical therapy, and the consistent use of anti-inflammatories. All 3 of these options, including their risks and benefits, were discussed at length with the patient. 2. Tylenol: Discussed taking Tylenol (acetaminophen). Recommended adjusting their dosing to 1000mg by mouth up to 3 times a day. 3. NSAIDs: Recommended continuing her Celebrex and even increasing it to daily instead of 3 times a week. 4. Physical therapy: Discussed formal physical therapy and home regimen. Patient preferred to continue her home exercises. 5. Injections: Discussed injections as a treatment option. After consent was obtained, the skin was prepped with betadine and alcohol. Ultrasound was utilized to identify the right hip joint. Using sterile technique, 3cc of kenalog and 7cc of bupivicaine was injected into the right hip joint. Patient tolerated the injection well. Images are stored elsewhere. 6. Follow up as needed [facility] Other 01-03-2023 Evaluation note* Encounter Date Diagnosis Assessment Notes Treatment Notes Treatment Clinical Notes Feb, Obstructive sleep apnea (ICD-10 - G47.33) Fortunately, the patient is using and benefiting from treatment. Download was reviewed with patient, Current pressure is controlling apnea well, And we will make no changes at this time. I did send an order for a mask fitting with recommendations to try [employer] Gel Pillows Cushion per patient request. A prescription was sent to the [employer] for new supplies throughout the year. She was encouraged to continue to use her machine nightly, throughout the entire night and for naps as this does provide clinical benefit. She will follow-up in the sleep clinic in 1 year or sooner if problems. Feb, Hypertension (ICD-10 - I10) Positive effects of controlled DENYS and hypertension were reviewed. Control of sleep apnea will frequently have a positive effect on blood pressure control, and may additionally reduce blood pressure lability. Feb, Other Call if any que stions or problems. Patient is advised to work on healthy diet choices and appropriate servings, weight control, regular exercise as directed, and reduce fat intake. Use machine regularly, and keep up with mask changes as needed. Call if problems with mask toleration, increased sleepiness, or poor response to treatment. . [facility] Other 11-29-2022 Evaluation note* Encounter Date Diagnosis Assessment Notes Treatment Notes Treatment Clinical Notes Dec, Anxiety (ICD-10 - F41.9) [facility] Other 11-16-2022 Evaluation note* Encounter Date Diagnosis Assessment Notes Treatment Notes Treatment Clinical Notes Dec, Pulmonary nodules (ICD-10 - R91.8) [facility] Other 11-08-2022 Evaluation note* Encounter Date Diagnosis Assessment Notes Treatment Notes Treatment Clinical Notes Dec, GERD (gastroesophageal reflux disease) (ICD-10 - K21.9) She was provided with a refill on the medication. She would like to be able to take the medication every day or every other day. I will write for every day. Dec, Anxiety (ICD-10 - F41.9) An OARRS report was reviewed no discrepancies noted. Frequent appointments needed due to addiction potential of medication. She does continue to use and benefit from the medication. Side effects/risks/benefi ts of medication were reviewed. I will see her back in three months. Dec, Pulmonary nodules (ICD-10 - R91.8) She would like to have a CT scan of the chest repeated due to pulmonary nodules that were seen in the past. I will order this and she can call for the results. Dec, Other 9:24 AM - 9:33 AM She is recovering from potential hand foot and mouth disease. She voices that she had lost her voice and had chills prior to developing the spots on her hands but they did ultimately turn into blood blisters. She did stay home for 7 days after the spots on the hands turned to the color of blood blisters. She used good handwashing, sanitized everything and avoided others. She voices that she may have had one lesion in her mouth. She overall feels better and is improving. I did explain to her that it sounds as if she had a viral infection. She did go out yesterday and wore disposable gloves and a mask. [facility] Other 10-12-2022 Evaluation note* Encounter Date Diagnosis Assessment Notes Treatment Notes Treatment Clinical Notes Nov, Anxiety (ICD-10 - F41.9) [facility] Other 08-29-2022 Evaluation note* Encounter Date Diagnosis Assessment Notes Treatment Notes Treatment Clinical Notes Sep, Anxiety (ICD-10 - F41.9) Sep, GERD (gastroesophageal reflux disease) (ICD-10 - K21.9) [facility] Other 08-26-2022 NotePROCEDURE: XR FOOT RT MIN 3 VIEWS HISTORY: Pain in right foot ; follow-up second metatarsal fracture, dorsal midfoot swelling COMPARISON: XR foot right 09/11/2021 FINDINGS: BONES:Fairly discernible residual fracture line involving the second metatarsal mid diaphysis consistent with bone healing. Mild degenerative changes the first metatarsophalangeal joint. SOFT TISSUES:Mild dorsal soft tissue swelling. EFFUSION:None visible. OTHER: Negative. IMPRESSION: 1. Normal alignment of the second metatarsal with notable bone healing. Electronically authenticated by: PAIGE CLAYTON Date: 2021-10-18 10:16[facility]08-19-2022 Evaluation note* Encounter Date Diagnosis Assessment Notes Treatment Notes Treatment Clinical Notes Sep, Anxiety (ICD-10 - F41.9) [facility] Other 08-10-2022 Evaluation note* Encounter Date Diagnosis Assessment Notes Treatment Notes Treatment Clinical Notes Sep, Anxiety (ICD-10 - F41.9) [facility] Other 08-10-2022 Evaluation note* Encounter Date Diagnosis Assessment Notes Treatment Notes Treatment Clinical Notes Sep, Hyperglycemia (ICD-10 - R73.9) Her glucose is 117. HgA1C has gone up from 5.3 to 5.8. I suspect this is due to her not going to the gym due to her broken foot. Anticipate that once she is able to return to being active this will improve. She voices that she is just surviving and will try to watch her diet to include carbs and sugars. For now we will continue to monitor. Sep, Hypertension (ICD-10 - I10) Blood pressure is controlled. Continue with above medication daily. Sep, Anxiety (ICD-10 - F41.9) An OARRS report was reviewed no discrepancies noted. She does continue to use and benefit from the Xanax. Frequent appointments needed due to addiction potential of medication. I will see her back in three months. Side effects/risks/benef its of medication were reviewed. Sep, Vitamin D deficiency (ICD-10 - E55.9) Her Vitamin D level is 41.0. Continue with the Vitamin D supplement. Sep, Hyperlipidemia (ICD-10 - E78.5) Discussed cholesterol results with patient today. Total is 158. HDL is 55. LDL is 64. Triglycerides are 196. I would like her to continue to monitor her intake of carbs and sugars. For now will continue to monitor due to her not being able to be active. Sep, Anemia (ICD-10 - D64.9) Her Iron is 98. Ferritin is 101.7. HGB is 13.5. I would like her to decrease her Iron to every other day. Sep, Vitamin B12 deficiency (ICD-10 - E53.8) Her B12 is 648. Folate is 17.1. I would like her to continue with the B12 daily. Sep, GERD (gastroesophageal reflux disease) (ICD-10 - K21.9) Continue with above medication as directed Sep, Arthritis (ICD-10 - M19.90) Continue with above medication as directed. Sep, Weight loss (ICD-10 - R63.4) Sep, Other nursing home (current) drug therapy (ICD-10 - Z79.899) Sep, Fracture (ICD-10 - T14.8XXA) right foot She broke her right foot on 08-08-21 and she has been unable to drive since then. She has also not been able to exercise like she was prior to the fracture. She has been wearing compression socks and is using a fracture boot. She is able to move to a shoe but her foot has been very swollen so she has not been able to do this yet. If she is up for three hours she is done for the day and has to sit the rest of the day. She is following with Maeve QUIROZ at ortho. Sep, Other 8:25 AM - 8:40 AM We discussed that her urinalysis indicates she needs more water. She has a history of kidney stones. She was following a calcium oxalate diet but then stopped. I did recommend that she begin avoiding foods that could calcium oxalate to build up and cause a stone. She admits she has had some back pain but thought it was caused by the way she was walking due to her broken foot. She will continue to monitor. [facility] Other 07-29-2022 NotePROCEDURE: XR FOOT RT MIN 3 VIEWS HISTORY: Pain in right foot ; follow-up second metatarsal fracture COMPARISON: None. FINDINGS: BONES:Nondisplaced transverse fracture through proximal second metatarsal diaphysis with slight increased density compared prior study. SOFT TISSUES:No visible soft tissue swelling. EFFUSION:None visible. OTHER: Negative. IMPRESSION: 1. Nondisplaced second metatarsal fracture with early bone healing. Electronically authenticated by: PAIGE CLAYTON Date: 2021-09-20 08:10[id number] NotePROCEDURE: XR FOOT RT MIN 3 VIEWS HISTORY: Pain in right foot ; follow-up right second metatarsal fracture COMPARISON: XR foot right 08/08/2021 FINDINGS: BONES:Transverse fracture line within proximal second metatarsal diaphysis is barely visible on today's study. Normal alignment is maintained. No callus formation along margins. SOFT TISSUES:No visible soft tissue swelling. EFFUSION:None visible. OTHER: Negative. IMPRESSION: 1. Normal alignment and ongoing bone healing of second metatarsal fracture. Electronically authenticated by: PAIGE CLAYTON Date: 2021-08-30 09:32[id number] Evaluation note* Encounter Date Diagnosis Assessment Notes Treatment Notes Treatment Clinical Notes Jul, Anxiety (ICD-10 - F41.9) Jul, Essential hypertension (ICD-10 - I10) [facility] Other 06-16-2022 NotePROCEDURE: XR FOOT RT MIN 3 VIEWS HISTORY: Pain in right foot ; dropped object on right foot COMPARISON: None. FINDINGS: BONES:Nondisplaced transverse fracture through proximal diaphysis of second metatarsal. No intra-articular extension. SOFT TISSUES:Prominent dorsal soft tissue swelling. EFFUSION:None visible. OTHER: Negative. IMPRESSION: 1. Acute, nondisplaced second metatarsal fracture. 2. Dorsal soft tissue swelling. Electronically authenticated by: PAIGE CLAYTON Date: 2021-08-08 17:31[facility]06-16-2022 Evaluation note* Encounter Date Diagnosis Assessment Notes Treatment Notes Treatment Clinical Notes Jul, Foot pain, right (ICD-10 - M79.671) [facility] Other 05-04-2022 Evaluation note* Encounter Date Diagnosis Assessment Notes Treatment Notes Treatment Clinical Notes June, Anxiety (ICD-10 - F41.9) An OARRS report was reviewed no discrepancies noted. Frequent appointments needed due to addiction potential of medication. She takes the Xanax once a day at this time because of stressors that are going on at home with her husbands health. She normally takes it at night to calm down and sleep and if needed she will use it in the morning. She does benefit from the medication. I will see her back in three months but she can call for refills if needed. Side effects/risks/benef its of medication were reviewed. June, Sleep apnea (ICD-10 - G47.30) She is following with Tanna Wilson for DENYS. She still has headaches but not as often but admits she feels more rested with her CPAP machine. June, Vitamin D deficiency (ICD-10 - E55.9) We discussed that it is difficult to overdo Vitamin D so she can continue with this daily. Her Vitamin D level in February was still not where we would like to see it so she is not in any danger of this going too high. Her level will be checked again in August with her next lab draw. June, Osteopenia (ICD-10 - M85.80) Her last DEXA scan was about a year and a half ago. Most of her areas were normal, she had two areas that were in the osteopenia area. Once it has been two years (after 2022) we can order a repeat DEXA to be done. June, Essential hypertension (ICD-10 - I10) She voices that her [facility] nurse contacts her monthly and suggested she check her blood pressure three times a week, she has been doing this and has been getting good readings. Her reading today was 111/70. She will continue to monitor. June, Other 8:58 AM - 9:08 AM I did advise her that her Vitamin C does help her to absorb the Iron that she takes so she should continue with this. She voiced understanding. [facility] Other 04-26-2022 Evaluation note* Encounter Date Diagnosis Assessment Notes Treatment Notes Treatment Clinical Notes May, Anxiety (ICD-10 - F41.9) [facility] Other 03-15-2022 Evaluation note* Encounter Date Diagnosis Assessment Notes Treatment Notes Treatment Clinical Notes Apr, Obstructive sleep apnea (ICD-10 - G47.33) Fortunately, the patient is using and benefiting from treatment. Download was reviewed with patient, Current pressure is controlling apnea well, And we will make no changes at this time. A prescription was sent to the [employer] for new supplies throughout the year. She was encouraged to continue to use her machine nightly, throughout the entire night and for naps as this does provide clinical benefit. She will follow-up in the sleep clinic in 1 year or sooner if problems. Apr, Other Call if any questions or problems. Patient is advised to work on healthy diet choices and appropriate servings, weight control, regular exercise as directed, and reduce fat intake. Use machine regularly, and keep up with mask changes as needed. Call if problems with mask toleration, increased sleepiness, or poor response to treatment. . [facility] Other 03-02-2022 Evaluation note* Encounter Date Diagnosis Assessment Notes Treatment Notes Treatment Clinical Notes Apr, Osteopenia (ICD-10 - M85.80) [facility] Other 02-25-2022 Evaluation note* Encounter Date Diagnosis Assessment Notes Treatment Notes Treatment Clinical Notes Mar, Trigger finger, right ring finger (ICD-10 - M65.341) Right ring trigger finger injected with cortisone under sterile technique, patient tolerated well Mar, Right hand pain (ICD-10 - M79.641) [facility] Other 01-28-2022 Evaluation note* Encounter Date Diagnosis Assessment Notes Treatment Notes Treatment Clinical Notes Feb, Hyperlipidemia (ICD-10 - E78.5) Discussed cholesterol results with patient today. Total is 142. HDL is 54. LDL is 61. Triglycerides are 133. Readings are at goal. Continue to exercise, watch intake of carbs and sugars. Stay active. Feb, Fatty liver (ICD-10 - K76.0) We discussed fatty liver today, I explained to her that there is a new test FibroSure scan that can be done to evaluate fatty liver further. If she would like to have this test done she can see Dr. Mckinnon for evaluation. She is doing all the right things, she exercises and eats right. Right now she declines and will continue with what she is doing. Feb, Anemia (ICD-10 - D64.9) Discussed blood work results with her today. Her HGB is 13.8. Iron is 99. Ferritin is 89. She is encouraged to continue with the Iron supplement as directed. Feb, Hyperglycemia (ICD-10 - R73.9) Discussed blood sugar results with patient today. Glucose is 112. HgA1C is down from 5.7 to 5.3 which is excellent. She is encouraged to continue with what she is doing as it is working well. Feb, Hypertension (ICD-10 - I10) Blood pressure is controlled. Continue with above medications daily as directed. Feb, Vitamin D deficiency (ICD-10 - E55.9) Her Vitamin D level is 39.8. Continue with the Vitamin D supplement daily. Feb, Anxiety (ICD-10 - F41.9) An OARRS report was reviewed no discrepancies noted. She does continue to use and benefit from the Xanax. Frequent appointments needed due to addiction potential of medication. Side effects/risks/benef its of medication were reviewed. I will see her back in three months. Feb, Arthritis (ICD-10 - M19.90) Continue with above medication as directed. Feb, Right hip pain (ICD-10 - M25.551) She voices that she does have right sided pain at times, her hip starts to slide but if she goes to see the specialist they want to give her more medication. She tries to stay active. If she does not then she hurts worse. She is going to continue to stay active to keep herself in shape. She does balance at exercise class and this seems to help her. She also does strength training. Feb, Vitamin B12 deficiency (ICD-10 - E53.8) Her B12 level is 684. Folate is 19.0. Continue with B12 supplement daily as directed. Feb, Osteopenia (ICD-10 - M85.80) Continue with above medication daily as directed. Her last DEXA scan was in 2019. Feb, alf use of drug (ICD-10 - Z79.899) Feb, Weight loss (ICD-10 - R63.4) She has lost weight since last seen. Her TSH is normal at 2.84. Feb, GERD (gastroesophageal reflux disease) (ICD-10 - K21.9) Continue with above medication as directed. Will continue to monitor. Feb, Nocturia (ICD-10 - R35.1) Feb, Other Since last seen she went back on all her medication except her multivitamin. She voices that when she took the multivitamin it caused her urine to be very bright in color which made it difficult for her to tell if she was staying well hydrated. [facility] Other 10-26-2021 Evaluation note* Encounter Date Diagnosis Assessment Notes Treatment Notes Treatment Clinical Notes Nov, Anemia (ICD-10 - D64.9) Her HGB is 13.5. Iron is 76. Ferritin is 37.1. She has not been taking her Iron. I did recommend that she restart her Iron supplement once a day. Will repeat lab in three months. Nov, Vitamin B12 deficiency (ICD-10 - E53.8) Her Vitamin B12 level is 442. Folate is 15.8. She is not taking any B12 vitamins right now, voices that she was trying to see how her levels were without any medication. I did recommend that she return to taking her B12 vitamin five days a week. Nov, Abdominal pain (ICD-10 - R10.9) We discussed the KUB x-ray that Dr. Dickerson ordered for her. I explained that this will show if she has a kidney stone present. I explained to her that the area where she has some discomfort is where stool backs up. It is possible that backed up stool is causing her discomfort. She is going to ask Dr. Dickerson if she can get the KUB x-ray now and if so then she is going to go ahead and get the x-ray done. She has never had any issue with her gallbladder. I will provide her with an order for a gallbladder ultrasound. If the KUB x-ray does not show a stone or backed up stool then she should have the ultrasound done. She has regular bowel movements, 2-3 times in the morning. Even when she had the discomfort she was still having regular bowel movements. She describes it as a gas pocket. The pain was constantly there for two to three weeks. Last week she thinks she passed a kidney stone, states that she was pain free from last until today she noticed some discomfort again. Nov, Anxiety (ICD-10 - F41.9) An OARRS report was reviewed, no discrepancies noted. She does continue to use and benefit from the Xanax as needed. I will need to see her back in three months. Side effects/risks/benef its of medication were reviewed. Nov, Renal calculi (ICD-10 - N20.0) She voices that for the last 2-3 weeks she has felt her right side hurt, similar to when she had a kidney stone last year (2019). She was working out at the gym in Oct (2020) so decided to swim twice a week and work out at home instead of the gym for November (2020) and the swimming seems to help her right side. She had this pain until last 12-13-20 when it resolved, she wonders if she passed a kidney stone at that time. She had been essentially pain free until today she woke with some discomfort. She provided a urine sample today. She will be seeing Dr. Dickerson soon. She has a KUB x-ray to be done prior to his appointment which is either 12-24 or 01-24-21. Nov, Hematuria (ICD-10 - R31.9) We discussed that her urinalysis she provided today was normal. Will send it for further evaluation, she can call later this week for the final culture results. Nov, Weight loss (ICD-10 - R63.4) She continues to lose weight. She is swimming twice a week and working out in her home gym. She is to continue with what she is doing as it is working well. Nov, Primary osteoarthritis of right hip (ICD-10 - M16.11) She has been doing strength training, rides her bike and is doing planks. It hurts her to sit because it causes her right hip to stiffen up. She saw Dr. Javed in the past for her hip and is considering returning to see him. I did recommend that she avoid doing planks. [facility] Other Evaluation + Plan note Future Appointments Appointment Date:01/12/2024 08:30:00 AM Scheduled Provider:MARIANA DUONG PA-C Location:[facility] Appointment Type:URO Office Visit [facility] evaluation noteNo InformationNort [employer] Other evaluation noteNortPinger Other Evaluation noteNo assessment information available [facility] Work Phone: [facility] general Narrative - Reported* Type Description Date Medical History Hypertension Medical History Esophageal reflux Medical History bladder trouble Medical History generalized anxiety (takes med t wice per month) Surgical History Right Breast Biopsy (benign) Surgical History Tubal Ligation 1978 Surgical History cystocopy; Dr. Guadalupe Surgical History colonoscopy - Dr Casiano 09/2015 Surgical History eye lid surgery Dr Collin arevalo 01/08/17 Hospitalization History Vaginal 78 & 80 [employer] Other history general Narrative - [id number] Other history general Narrative - Reported* Type Description Date Medical History Hypertension Medical History Esophageal reflux Medical History bladder trouble Medical History generalized anxiety (takes med t wice per month) Surgical History Right Breast Biopsy (benign) Surgical History Tubal Ligation 1978 Surgical History cystocopy; Dr. Guadalupe Surgical History colonoscopy - Dr Tonya grimes / Normal needs repeat in 09/2015 Surgical History eye lid surgery Dr Collin arevalo 01/08/17 Hospitalization History Vaginal 78 & 80 [facility] Other history general Narrative - Reported* Type Description Date Medical History Hypertension Medical History Esophageal reflux Medical History bladder trouble Medical History generalized anxiety (takes med t wice per month) Medical History Sleep apnea Surgical History Right Breast Biopsy (benign) Surgical History Tubal Ligation 1978 Surgical History cystocopy; Dr. Guadalupe Surgical History colonoscopy - Dr Tonya grimes / Normal needs repeat in 09/2015 Surgical History eye lid surgery Dr Collin arevalo 01/08/17 Hospitalization History Vaginal 78 & 80 [employer] Other [facility] general Narrative - Reported* Type Description Date Medical History Hypertension Medical History Esophageal reflux Medical History bladder trouble Medical History generalized anxiety (takes med t wice per month) Medical History Sleep apnea Surgical History Right Breast Biopsy (benign) 's Surgical History Tubal Ligation 1979 Surgical History cystocopy; Dr. Guadalupe Surgical History colonoscopy - Dr Tonya grimes / Normal needs repeat in 09/2015 Surgical History eye lid surgery Dr Collin Quiroz rschagianni 01/08/17 Surgical History [facility] 11/04/22 Hospitalization History Vaginal 77 & 79 [employer] Other Hospital course Narrative No data available for this section [facility] [employer] progress note No data available for this section [facility] [place] reason for visit Narrativereview lab, discuss multiple issues see treatment plan for further [employer] Other Reason for visit Narrativereview labs/med refill, discuss multiple issues, see treatment plan for further [employer] Other Summary Purpose Family History Relationship Condition Age at Onset Recorded Date/T casi Not Specified Malignant neoplasm of ovary Unknown father Myocardial infarction Unknown Diabetes mellitus Unknown Relationship Condition Age at Onset Recorded Date/T casi Not Specified Malignant neoplasm of ovary Unknown father Diabetes mellitus Unknown Myocardial infarction Unknown brother History of coronary artery stent placement Unknown brother Malignant neoplasm Unknown Advance Directives Advance Directive Response Recorded Date/ Time Advance Directives No December 24, 2016 3:17pm Advance Directive Response Recorded Date/ Time Advance Directives No December 24, 2016 2:17pm Advance Directive Response Recorded Date/ Time Advance Directives Yes October 20, 2022 10:42am Advance Directive Response Recorded Date/ Time Advance Directives Yes October 5:30am Advance Directive Response Recorded Date/ Time Advance Directives Yes December 1:47pm Chief Complaint and Reason for Visit Chief Complaint E78.5 E55.9 R73.9 E5 3.8 Z79.899 D64.9 R35.1 Chief Complaint r91.8 Chief Complaint r91.8 Screening denys, needed for medicare Chief Complaint r91.8 Screening denys, needed for medicare M25.551 Chief Complaint Z79.899 right hip pain Chief Complaint Z79.899 right hip pain RTH pre op Chief Complaint right hip pain RTH pre op right hip pain Z47.1 Z96.641 Chief Complaint RTH pre op right hip pain Z47.1 Z96.641 E53.8 D64.9 E55.9 Screening Chief Complaint Z47.1 Z96.641 E53.8 D64.9 E55.9 Screening Chief Complaint Z47.1 Z96.641 E53.8 D64.9 E55.9 Screening M25.511 Sleep apnea annual follow up Chief Complaint E53.8 D64.9 E55.9 Med Reifll Screening New Rt Shoulder Pain Nx M25.511 Annual g47.33 Additional Source Comments INFORMATION SOURCE (unrecogn ized section and content) DATE CREATED AUTHOR 08/04/2018 [facility] DATE CREATED AUTHOR AUTHOR'S ORGANIZ ATION 05/05/2020 [facility] DATE CREATED AUTHOR AUTHOR'S ORGANIZ ATION 05/31/2022 [facility] DATE CREATED AUTHOR AUTHOR'S ORGANIZ ATION 01/16/2023 [facility] DATE CREATED AUTHOR AUTHOR'S ORGANIZ ATION 02/28/2023 [facility] dical [facility] DATE CREATED AUTHOR AUTHOR'S ORGANIZ ATION 04/02/2023 [facility] REASON FOR VISIT (unrecogniz ed section and content) review labs/med refillclinic alreview labsRecheck Right HandrefillAnnualrefillmed refillrefillsrefillClinicalClinical Acute Medicinereview labs/med refillClinical Acute MedicinerefillClinicalmed refillCT Scan chestClinicalClinicalFOLLOW UPRT HIP PAIN DR JAVED PTRefillsPA Nexium- ApprovedClinicalthyroid ultrasound resultsRefillsMed RefillrefillPre-Op MedsMRSARefillsH&P RIGHT TOTAL HIP ARTHROPLASTYNo InformationquestionsFYIRecheck Right HipRecheck Right HipRefillsBP readingmed reifllRight Shoulder PainmedicationANNUAL Care Teams (unrecognized sec tion and content) Team Status: Inactive Member Role Status Dates Roma Pritchard , DO Primary Care Provider, Attending Pro vider Active Team Status: Active Member Role Status Dates Roma Pritchard , Primary Care Provider Active Team Status: Inactive Member Role Status Dates Roma Pritchard , Primary Care Provider Active Tanna Wilson NP Attending Provider Active Team Status: Inactive Member Role Status Dates Roma Pritchard , Primary Care Provider Active Orlando Vicente MD Attending Provider Active Team Status: Inactive Member Role Status Dates Roma Pritchard DO Primary Care Provider Active Ar Herman II, MD Attending Provider Active Team Status: Inactive Member Role Status Dates Roma Pritchard DO Primary Care Provider Active Referral Self Attending Provider Active Team Status: Inactive Member Role Status Dates Roma Pritchard DO Primary Care Provider Active Colby Shaffer , DO Attending Provider Active Team Status: Inactive Member Role Status Dates Roma Pritchard DO Primary Care Provide r, Attending Provider Active Start: December 26, 2022 End: December 26, 2022 Team Status: Inactive Member Role Status Onel Pritchard DO Attending Provider Active Star t: December 31, 2022 End: December 31, 2022 Team Status: Inactive Member Role Status Onel Pritchard DO Primary Care Provider Active S tart: January 19, 2023 End: January 19, 2023 Referral Self Attending Provider Active Start: N ov2022 End: January 19, 2023 Team Status: Inactive Member Role Status Dates Provider Conversion Attending Provider Active St art: March 03, 2023 End: March 03, 2023 Team Status: Inactive Member Role Status Onel Pritchard DO Primary Care Provider Active S tart: March 03, 2023 End: March 03, 2023 Colby Shaffer , DO Attending Provider Active St art: March 03, 2023 End: March 03, 2023 Team Status: Inactive Member Role Status Dates Tanna Wilson NP Attending Provider Active Start: March 09, 2023 End: March 09, 2023 Team Status: Inactive Member Role Status Onel Pritchard DO Primary Care Provider Active S tart: March 09, 2023 End: March 09, 2023 Tanna Wilson NP Attending Provider Active Start: March 09, 2023 End: March 09, 2023 Team Status: Inactive Member Role Status Dates Roma Girvin , DO Primary Care Provide r, Attending Provider Active Start: March 25, 2023 End: March 25, 2023 Goals (unrecognized section and content) Goals may be documented in a n alternate section FOR RECORDS PERTAINING TO PATIENTS WHO ARE OR HAVE BEEN ENROLLED IN A CHEMICAL DEPENDENCY/SUBSTANCEABUSE PROGRAM, SOME INFORMATION MAY BE OMITTED. This clinical summary was aggregated from multiple sources. Caution should be exercised in using it in the provision of clinical care. This summary normalizes information from multiple sources, and as a consequence, information in this document may materially change the coding, format and clinical context of patient data. In addition, data may be omitted in some cases. CLINICAL DECISIONS SHOULD BE BASED ON THE PRIMARY CLINICAL RECORDS. [facility]. provides no warranty or guarantee of the accuracy or completeness of information in this document.
== END 2023-04-07 08:30 | disposition home or self-care (01) ==
LOC: RAD 08:30
PROVIDERS: PCP Family Medicine; Visit Provider Physician Assistant
DX: N20.0 Calculus of kidney (principal)
CPT/HCPCS: 74018

== ENCOUNTER 2023-04-11 11:38 | Outpatient (OUT) | payer MEDICARE, BC, SELFPAY ==
--- NOTE | 2023-04-11 11:40 | US_ITS ---
[address] [address] Patient Name: RAHUL AGUILERA MRN: [id number] date: 1955 Sex: F Assigned Patient Location: Current Patient Location: US Accession/Order Number: [id number] Exam Date: 04/11/2023 11:45 Report Date: 04/11/2023 15:51 At the request of: SHIRA DUONG Procedure: US renal BI EXAMINATION: US renal BI HISTORY: Ureteral stone COMPARISON: No relevant comparison available. TECHNIQUE: Ultrasound examination was performed of the bladder. FINDINGS: Right Kidney: Normal in size, contour and cortical echotexture. The cortex measures 1.3 cm. No solid cortical mass, hydronephrosis or obstructing nephrolithiasis Height: 5.3 cm Length: 10.4 cm Width: 3.9 cm Left Kidney: Normal in size, contour and cortical echotexture. The cortex measures 1.2 cm. 3.5 cm area of anechoic echogenicity lateral midpole cortex, simple cyst. Echogenic foci, nonobstructing nephrolithiasis Height: 6.4 cm Length: 10.8 cm Width: 4.6 cm Urinary bladder is normal. Volume 147 mL US/US renal BI IMPRESSION: Nonobstructing left nephrolithiasis Electronically authenticated by: ROMA BOUDREAUX Date: 04/11/2023 15:51
--- OUTSIDE RECORDS SUMMARY | 2023-04-11 11:40 | XMS_ITS | CCD ---
Author Name Unknown Address [address] [place] [address] Organization [facility] Care Team Providers Care Head Of Acquisitions Name Role Phone Roma Pritchard Unavailable Megan Asencio Unavailable Tanna Wilson Unavailable DO Roma Pritchard Primary Care Provider [phone] DO Roma Pritchard Attending Provider DO Roma Pritchard Primary Care Provider DO Roma Pritchard Attending Provider MD Orlando Vicente Attending Provider LEORA Wilson Attending Provider [phone] MD Ar Herman II Attending Provider Ar [...] Unavailable WEST, DR BRANDON V Consulting Unavailable AD, MARIANA Attending Unavailable GIRCARMEN, DR BRANDON Primary Care Unavailable AD, MARIANA Admitting Unavailable AD, MARIANA Consulting Unavailable Francheska, DO Brandon Primary Care Provider DO Roma Pritchard Attending Provider [phone] MD Ar Herman II Attending Provider [phone] DO Roma Pritchard Primary Care Provider DO Roma Pritchard Attending Provider [phone] Roma Pritchard Primary Care Physician DO Roma Pritchard Primary Care Provider MD Ar Herman II Attending Provider DO Roma Pritchard Attending Provider Self, Referral Attending Provider Unavailable BLAYNE MORALES Attending Unavailable Colby Shaffer Unavailable DO Roma Pritchard Primary Care Provider MD Ar Herman II Attending Provider DO Colby Shaffer Attending Provider [phone] LEORA Wilson Attending Provider DO Roma Pritchard Primary Care Provider Roma Pritchard Primary Care Unavailable Roma Pritchard Attending Unavailable Francheska, Roma Admitting Unavailable Roma Pritchard Primary Care Unavailable Ar Herman II Attending Unavailabl e Virgil POTTER, Ar Venegas Admitting Unavailabl e Virgil POTTER, Ar Venegas Attending Unavailabl e Roma Pritchard Primary Care Unavailable Virgil POTTER, Ar Venegas Admitting Unavailabl e Virgil POTTER, Ar Venegas Admitting Unavailabl e Virgil POTTER, Ar Venegas Attending Unavailabl e Roma Pritchard Primary Care Unavailable Roma Pritchard Primary Care Unavailable Roma Pritchard Attending Unavailable Roma Pritchard Admitting Unavailable Ar Herman II Attending UnavailAr Metzger II Admitting UnavailRoma Dominguez Primary Care Unavailable Roma Pritchard Primary Care Unavailable Self, Referral Admitting Unavailable Self, Referral Attending Unavailable Francheska, Roma Primary Care Unavailable Colby Shaffer Admitting Unavailable Colby Shaffer Attending Unavailable Roma Pritchard Primary Care Unavailable Steve, Tanna Admitting Unavailable Tanna Wilson Attending Unavailable Roma Pritchard Primary Care Unavailable Roma Pritchard Attending Unavailable Roma Pritchard Admitting Unavailable MARIANA DUONG Attending Unavailable MARIANA DUONG Attending Unavailable Medications Current Medications Medication Drug Class(es) [...] 10-17-2022 Calcitonin (Sa lmon) (Miacalcin) 200 unit/actuation [place],Non-Aerosol Active 1 SPRAY INTRANASAL (ALT) Daily October [...] Active docusate sodium 50 mg / sennosides, long term 8.6 mg oral tablet (6 sources) Start: [...] DOS: 11/04/2022 Sep, Not-Taking polyethylene glycol 3350 64593 mg powder for oral solution (6 sources) [...] surgery Chronic Other aftercare (5 sources) Other alf (current) drug therapy; Translations: [Other alf (current) drug therapy] Onset: 2 Resolved: 2 [...] Test Name Value Interpretation Reference Range Facility RAD - MISCon 04-07-2023 RAD - MISC [id number] Normal [facility] A1C with Estimated Average G dainel 03-25-2023 Glucose [Mass/Vol] 114 mg/dL Normal [facility] Comment on above: Result Comment: PERF ORMED BY: [place] [address] PATHOLOGIST BRICK VENEER MAKER CIRA GRAHAM M.D. Performed By: #### A 1C [facility] eA #### [place] [address] [place] #### NICOTINE #### [facility] , HbA1c (Bld) [Mass fraction] 5.6 % Normal 4.3-5.6 [facility] Comment on above: Result Comment: Incr eased risk for diabetes: 5.7 - 6.4 diabetes: >6.4 glycemic control for adults with diabetes: <7.0 Performed By: #### A 1C [facility] #### [address] #### NICOTINE #### [facility] , Alanine aminotransferase [En zymatic activity/volume] in Serum or PlasmaOrdered By: Roma Pritchard on 03-25-2023 ALT [Catalytic activity/Vol] 17 U/L 7-52 [facility] Albumin [Mass/volume] in Ser um or Plasma by Bromocresol green (BCG) dye binding methoOrdered By: Roma Pritchard on 03-25-2023 Albumin BCG dye [Mass/Vol] 4.3 g/dL 3.5-5.7 [facility] Alkaline phosphatase [Enzyma tic activity/volume] in Serum or PlasmaOrdered By: Roma Pritchard on 03-25-2023 ALP [Catalytic activity/Vol] 74 U/L 34-104 [facility] Aspartate aminotransferase [ Enzymatic activity/volume] in Serum or PlasmaOrdered By: Roma Pritchard on 03-25-2023 AST [Catalytic activity/Vol] 16 U/L 13-39 [facility] Basophils Auto (Bld) [#/Vol] Ordered By: Roma Pritchard on 03-25-2023 Basophils (Bld) [#/Vol] 0.0 10*3/uL 0.0-0.2 [facility] Basophils/100 WBC Auto (Bld) Ordered By: Roma Pritchard on 03-25-2023 Basophils/100 WBC (Bld) 0.7 % . [facility] Bilirubin.total [Mass/volume ] in Serum or PlasmaOrdered By: Roma Pritchard on 03-25-2023 Bilirubin [Mass/Vol] 0.6 mg/dL 0.3-1.0 [facility] Calcium [Mass/volume] in Ser um or PlasmaOrdered By: Roma Pritchard on 03-25-2023 Calcium [Mass/Vol] 9.8 mg/dL 8.6-10.3 [facility] Carbon dioxide, total [Moles /volume] in Serum or PlasmaOrdered By: Roma Pritchard on 03-25-2023 CO2 [Moles/Vol] 33.1 mmol/L 21.0-31.0 [facility] Chloride [Moles/volume] in S bran or PlasmaOrdered By: Roma Pritchard on 03-25-2023 Chloride [Moles/Vol] 103 mmol/L 98-107 [facility] Cholesterol [Mass/volume] in Serum or PlasmaOrdered By: Roma Pritchard on 03-25-2023 Cholesterol [Mass/Vol] 162 mg/dL 140-200 [facility] Comment on above: Chol less than 200 m g/dl low riskChol 201-239 mg/dl borderline riskChol 240 mg/dl and greater high risk Cholesterol in LDL Calc [Mas s/Vol]Ordered By: Roma Pritchard on 03-25-2023 Cholesterol in LDL [Mass/Vol] 60 mg/dL 0-100 [facility] Comment on above: LDL ATP III CLASSIFI CATIONLDL less than 100 mg/dL OptimalLDL 100-129 mg/dL Near or above optimalLDL 130-159 mg/dL Borderline highLDL 160-189 mg/dL HighLDL greater than 189 mg/dL Very high Cholesterol in VLDL Calc [Ma ss/Vol]Ordered By: Roma Pritchard on 03-25-2023 Cholesterol in VLDL [Mass/Vol] 19 mg/dL [facility] Complete Blood Count Auto Di ffon 03-25-2023 Basophils (Bld) [#/Vol] 0.0 10*3/uL Normal 0.0-0.2 [facility] Comment on above: Result Comment: PERF ORMED BY: [place] [address] PATHOLOGIST BRICK VENEER MAKER CIRA GRAHAM M.D. Performed By: #### C BC, FOL, TSH3, [id number], CMP, FE and TIBC, B12, A1C WTH eA, LIPID, DINA #### [place] [address] [place] Basophils/100 WBC (Bld) 0.7 % Normal . [facility] Comment on above: Performed By: #### C BC, FOL, TSH3, [id number], CMP, FE and TIBC, B12, A1C WTH eA, LIPID, DINA #### [address] Eosinophils (Bld) [#/Vol] 0.1 10*3/uL Normal 0.0-0.45 [facility] Comment on above: Performed By: #### C BC, FOL, TSH3, [id number], CMP, FE and TIBC, B12, A1C WTH eA, LIPID, DINA #### [address] Eosinophils/100 WBC (Bld) 1.8 % Normal . [facility] Comment on above: Performed By: #### C BC, FOL, TSH3, [id number], CMP, FE and TIBC, B12, A1C WTH eA, LIPID, DINA #### [address] Erythrocyte distribution width (RBC) [Ratio] 14.2 % Normal 11.9-15.3 [facility] Comment on above: Performed By: #### C BC, FOL, TSH3, [id number], CMP, FE and TIBC, B12, A1C WTH eA, LIPID, DINA #### [address] Hematocrit (Bld) [Volume fraction] 39.7 % Normal 34.0-46.4 [facility] Comment on above: Performed By: #### C BC, FOL, TSH3, [id number], CMP, FE and TIBC, B12, A1C WTH eA, LIPID, DINA #### [address] Hemoglobin (Bld) [Mass/Vol] 13.2 g/dL Normal 11.8-15.4 [facility] Comment on above: Performed By: #### C BC, FOL, TSH3, [id number], CMP, FE and TIBC, B12, A1C WTH eA, LIPID, DINA #### [address] Lymphocytes (Bld) [#/Vol] 1.6 10*3/uL Normal 1.00-4.8 [facility] Comment on above: Performed By: #### C BC, FOL, TSH3, [id number], CMP, FE and TIBC, B12, A1C WTH eA, LIPID, DINA #### [address] Lymphocytes/100 WBC (Bld) 26.5 % Normal . [facility] Comment on above: Performed By: #### C BC, FOL, TSH3, [id number], CMP, FE and TIBC, B12, A1C WTH eA, LIPID, DINA #### [address] MCH (RBC) [Entitic mass] 31.0 pg Normal 24.7-34.3 [facility] Comment on above: Performed By: #### C BC, FOL, TSH3, [id number], CMP, FE and TIBC, B12, A1C WTH eA, LIPID, DINA #### [address] MCV (RBC) [Entitic vol] 93.0 fL Normal 80-100 [facility] Comment on above: Performed By: #### C BC, FOL, TSH3, [id number], CMP, FE and TIBC, B12, A1C WTH eA, LIPID, DINA #### [address] Mean Corpuscular HGB Conc 33.4 g/dL Normal 32.0-35.0 [facility] Comment on above: Performed By: #### C BC, FOL, TSH3, [id number], CMP, FE and TIBC, B12, A1C WTH eA, LIPID, DINA #### [address] Monocytes (Bld) [#/Vol] 0.4 10*3/uL Normal 0.0-0.8 [facility] Comment on above: Performed By: #### C BC, FOL, TSH3, [id number], CMP, FE and TIBC, B12, A1C WTH eA, LIPID, DINA #### [address] [place] [address] [place] Monocytes/100 WBC (Bld) 7.1 % Normal . [facility] Comment on above: Performed By: #### C BC, FOL, TSH3, [id number], CMP, FE and TIBC, B12, A1C WTH eA, LIPID, DINA #### [address] Neutrophils (Bld) [#/Vol] 3.9 10*3/uL Normal 1.8-7.7 [facility] Comment on above: Performed By: #### C BC, FOL, TSH3, [id number], CMP, FE and TIBC, B12, A1C WTH eA, LIPID, DINA #### [address] Neutrophils/100 WBC (Bld) 63.9 % Normal . [facility] Comment on above: Performed By: #### C BC, FOL, TSH3, [id number], CMP, FE and TIBC, B12, A1C WTH eA, LIPID, DINA #### [address] NRBC% 0.1 /100{WBC} Normal 0-0.5 [facility] Comment on above: Performed By: #### C BC, FOL, TSH3, [id number], CMP, FE and TIBC, B12, A1C WTH eA, LIPID, DINA #### [address] Platelet mean volume (Bld) [Entitic vol] 9.6 fL Normal 6.3-10.7 [facility] Comment on above: Performed By: #### C BC, FOL, TSH3, [id number], CMP, FE and TIBC, B12, A1C WTH eA, LIPID, DINA #### [address] Platelets (Bld) [#/Vol] 248 10*3/uL Normal 150-450 [facility] Comment on above: Performed By: #### C BC, FOL, TSH3, [id number], CMP, FE and TIBC, B12, A1C WTH eA, LIPID, DINA #### [facility] [address] RBC (Bld) [#/Vol] 4.27 10*6/uL Normal 3.60-5.00 [facility] Comment on above: Performed By: #### C BC, FOL, TSH3, [id number], CMP, FE and TIBC, B12, A1C WTH eA, LIPID, DINA #### [facility] [address] WBC (Bld) [#/Vol] 6.2 10*3/uL Normal 3.8-11.6 [facility] Comment on above: Performed By: #### C BC, FOL, TSH3, [id number], CMP, FE and TIBC, B12, A1C WTH eA, LIPID, DINA #### [address] Comprehensive Metabolic Pane rebel 03-25-2023 Albumin [Mass/Vol] 4.3 g/dL Normal 3.5-5.7 [facility] Comment on above: Performed By: #### C BC, FOL, TSH3, [id number], CMP, FE and TIBC, B12, A1C WTH eA, LIPID, DINA #### [address] Albumin/Globulin [Mass ratio] 1.7 {ratio} Normal [facility] Comment on above: Performed By: #### C BC, FOL, TSH3, [id number], CMP, FE and TIBC, B12, A1C WTH eA, LIPID, DINA #### [facility] [address] ALP [Catalytic activity/Vol] 74 U/L Normal 34-104 [facility] Comment on above: Performed By: #### C BC, FOL, TSH3, [id number], CMP, FE and TIBC, B12, A1C WTH eA, LIPID, DINA #### [facility] [address] ALT [Catalytic activity/Vol] 17 U/L Normal 7-52 [facility] Comment on above: Performed By: #### C BC, FOL, TSH3, [id number], CMP, FE and TIBC, B12, A1C WTH eA, LIPID, DINA #### [facility] [address] Anion gap [Moles/Vol] 9.9 mmol/L Normal 6.0-15.0 [facility] Comment on above: Performed By: #### C BC, FOL, TSH3, [id number], CMP, FE and TIBC, B12, A1C WTH eA, LIPID, DINA #### [facility] [address] AST [Catalytic activity/Vol] 16 U/L Normal 13-39 [facility] Comment on above: Performed By: #### C BC, FOL, TSH3, [id number], CMP, FE and TIBC, B12, A1C WTH eA, LIPID, DINA #### [facility] [address] Bilirubin [Mass/Vol] 0.6 mg/dL Normal 0.3-1.0 [facility] Comment on above: Performed By: #### C BC, FOL, TSH3, [id number], CMP, FE and TIBC, B12, A1C WTH eA, LIPID, DINA #### [facility] [address] Calcium [Mass/Vol] 9.8 mg/dL Normal 8.6-10.3 [facility] Comment on above: Performed By: #### C BC, FOL, TSH3, [id number], CMP, FE and TIBC, B12, A1C WTH eA, LIPID, DINA #### [facility] [address] [place] [address] [place] Chloride [Moles/Vol] 103 mmol/L Normal 98-107 [facility] Comment on above: Performed By: #### C BC, FOL, TSH3, [id number], CMP, FE and TIBC, B12, A1C WTH eA, LIPID, DINA #### [facility] [address] [place] [address] [place] CO2 [Moles/Vol] 33.1 mmol/L High 21.0-31.0 [facility] Comment on above: Performed By: #### C BC, FOL, TSH3, [id number], CMP, FE and TIBC, B12, A1C WTH eA, LIPID, DINA #### [facility] [address] Creatinine [Mass/Vol] 0.76 mg/dL Normal 0.60-1.20 [facility] Comment on above: Performed By: #### C BC, FOL, TSH3, [id number], CMP, FE and TIBC, B12, A1C WTH eA, LIPID, DINA #### [facility] [address] GFR/1.73 sq M.predicted MDRD (S/P/Bld) [Vol rate/Area] mL/min/{1.73_m2} [facility] Comment on above: Performed By: #### C BC, FOL, TSH3, [id number], CMP, FE and TIBC, B12, A1C WTH eA, LIPID, DINA #### [facility] [address] Globulin (S) [Mass/Vol] 2.6 g/dL [facility] Comment on above: Performed By: #### C BC, FOL, TSH3, [id number], CMP, FE and TIBC, B12, A1C WTH eA, LIPID, DINA #### [address] Glucose [Mass/Vol] 96 mg/dL Normal 70-100 [facility] Comment on above: Result Comment: [place] Glucose Reference Range is dependent on time and content of last meal. Glucose of more than 200 mg/dL in a nonstressed, ambulatory subject supports the diagnosis of Diabetes Mellitus. ADA recommended reference range Performed By: #### C BC, FOL, TSH3, [id number], CMP, FE and TIBC, B12, A1C WTH eA, LIPID, DINA #### [address] Potassium [Moles/Vol] 4.0 mmol/L Normal 3.5-5.1 [facility] Comment on above: Performed By: #### C BC, FOL, TSH3, [id number], CMP, FE and TIBC, B12, A1C WTH eA, LIPID, DINA #### [facility] [address] Protein [Mass/Vol] 6.9 g/dL Normal 6.4-8.9 [facility] Comment on above: Performed By: #### C BC, FOL, TSH3, [id number], CMP, FE and TIBC, B12, A1C WTH eA, LIPID, DINA #### [facility] [address] Sodium [Moles/Vol] 142 mmol/L Normal 136-145 [facility] Comment on above: Performed By: #### C BC, FOL, TSH3, [id number], CMP, FE and TIBC, B12, A1C WTH eA, LIPID, DINA #### [facility] [address] [place] [address] [place] Urea nitrogen [Mass/Vol] 18 mg/dL Normal 7-25 [facility] Comment on above: Performed By: #### C BC, FOL, TSH3, [id number], CMP, FE and TIBC, B12, A1C WTH eA, LIPID, DINA #### [facility] [address] Creatinine [Mass/volume] in Serum or PlasmaOrdered By: Roma Pritchard on 03-25-2023 Creatinine [Mass/Vol] 0.76 mg/dL 0.60-1.20 [facility] Eosinophils Auto (Bld) [#/Vo l]Ordered By: Roma Pritchard on 03-25-2023 Eosinophils (Bld) [#/Vol] 0.1 10*3/uL 0.0-0.45 [facility] Eosinophils/100 WBC Auto (Bl d)Ordered By: Roma Pritchard on 03-25-2023 Eosinophils/100 WBC (Bld) 1.8 % . [facility] Erythrocyte distribution wid th Auto (RBC) [Ratio]Ordered By: Roma Pritchard on 03-25-2023 Erythrocyte distribution width (RBC) [Ratio] 14.2 % 11.9-15.3 [facility] Ferritinon 03-25-2023 Ferritin [Mass/Vol] 19.7 ng/mL Normal 11.0-306.8 [facility] Comment on above: Performed By: #### A 1C [facility] eA #### [facility] [address] [place] [address] [place] #### NICOTINE #### [facility] , Ferritin [Mass/volume] in Se rum or PlasmaOrdered By: Roma Pritchard on 03-25-2023 Ferritin [Mass/Vol] 19.7 ng/mL 11.0-306.8 [facility] Folateon 03-25-2023 Folate 15.8 ng/mL Normal >5.9 [facility] Comment on above: Result Comment: Ирина te reference range: >5.9 ng/ml The WHO technical consultation on folate and vitamin b12 deficiencies has determined that folate concentrations less than 4 ng/ml are considered deficient. Performed By: #### A 1C [facility] eA #### [facility] [address] [place] [address] [place] #### NICOTINE #### [facility] , Folate [Mass/volume] in Seru m or PlasmaOrdered By: Roma Pritchard on 03-25-2023 Folate [Mass/Vol] 15.8 ng/mL >5.9 [facility] Comment on above: Folate reference ran ge: >5.9 ng/mlThe WHO technical consultation on folate and vitamin [id number] has determined that folate concentrations lessthan 4 ng/ml are considered deficient. Globulin Calc (S) [Mass/Vol] Ordered By: Roma Pritchard on 03-25-2023 Globulin (S) [Mass/Vol] 2.6 g/dL [facility] Glucose [Mass/volume] in Ser um or PlasmaOrdered By: Roma Pritchard on 03-25-2023 Glucose [Mass/Vol] 96 mg/dL 70-100 [facility] Comment on above: ADA recommended refe rence rangeRandom Glucose Reference Range is dependent on time and content of last meal. Glucose of more than 200 mg/dL in a nonstressed, ambulatory subject supports the diagnosis of Diabetes Mellitus. Hematocrit Auto (Bld) [Volum e fraction]Ordered By: Roma Pritchard on 03-25-2023 Hematocrit (Bld) [Volume fraction] 39.7 % 34.0-46.4 [facility] Hemoglobin [Mass/volume] in BloodOrdered By: Roma Pritchard on 03-25-2023 Hemoglobin (Bld) [Mass/Vol] 13.2 g/dL 11.8-15.4 [facility] Iron [Mass/volume] in Serum or PlasmaOrdered By: Roma Pritchard on 03-25-2023 Iron [Mass/Vol] 77 ug/dL 50-212 [facility] Iron and TIBC Profileon 02-25 % Iron Saturation 15.5 % Low 20-50 [facility] Comment on above: Performed By: #### A 1C WT eA #### [facility] [address] [place] [address] [place] #### NICOTINE #### [facility] , Iron [Mass/Vol] 77 ug/dL Normal 50-212 [facility] Comment on above: Performed By: #### A 1C WT eA #### [facility] [address] [place] [address] [place] #### NICOTINE #### [facility] , Total Iron Binding Capacity 497 ug/dL High 255-450 [facility] Comment on above: Performed By: #### A 1C WTH eA #### [facility] [address] [place] [address] [place] #### NICOTINE #### [facility] , Transferrin [Mass/Vol] 355 mg/dL Normal 203-362 [facility] Comment on above: Performed By: #### A 1C WT eA #### [facility] [address] [place] [address] [place] #### NICOTINE #### [facility] , Iron binding capacity [Mass/ volume] in Serum or PlasmaOrdered By: Roma Pritchard on 01-31-2024 Iron binding capacity [Mass/Vol] 497 ug/dL 255-450 [facility] Iron saturation [Mass Fracti on] in Serum or PlasmaOrdered By: Roma Pritchard on 03-25-2023 Iron saturation [Mass fraction] 15.5 % 20-50 [facility] Leukocytes [#/volume] correc dinora for nucleated erythrocytes in Blood by Automated counOrdered By: Roma Pritchard on 03-25-2023 WBC corrected for nucl RBC Auto (Bld) [#/Vol] 6.2 10*3/uL 3.8-11.6 [facility] Lipid Panelon 03-25-2023 Cholesterol [Mass/Vol] 162 mg/dL Normal 140-200 [facility] Comment on above: Result Comment: Chol less than 200 mg/dl low risk Chol 201-239 mg/dl borderline risk Chol 240 mg/dl and greater high risk Performed By: #### A 1C [facility] eA #### [facility] [address] [place] [address] [place] #### NICOTINE #### [facility] , Cholesterol in HDL [Mass/Vol] 83 mg/dL Normal 23-92 [facility] Comment on above: Result Comment: HDL CHOL ATP-III CLASSIFICATION Cardiovascular Risk HDL > or equal to 60 mg/dL LOW HDL < 40 mg/dL HIGH Performed By: #### A 1C [facility] eA #### [facility] [address] [place] [address] [place] #### NICOTINE #### [facility] , Cholesterol.total/Cho lesterol in HDL [Mass ratio] 2.0 {ratio} Normal <5.0 [facility] Comment on above: Performed By: #### A 1C WT eA #### [facility] [address] [place] [address] [place] #### NICOTINE #### [facility] , LDL Cholesterol,Calculate d 60 mg/dL Normal 0-100 [facility] Comment on above: Result Comment: LDL ATP III CLASSIFICATION LDL less than 100 mg/dL Optimal LDL 100-129 mg/dL Near or above optimal LDL 130-159 mg/dL Borderline high LDL 160-189 mg/dL High LDL greater than 189 mg/dL Very high Performed By: #### A 1C [facility] eA #### [facility] [address] [place] [address] [place] #### NICOTINE #### [facility] , Triglyceride w/Reflex 95 mg/dL Normal 0-149 [facility] Comment on above: Result Comment: TRIG ATP III CLASSIFICATION TRIG less than 150 mg/dL Normal TRIG 150-199 mg/dL Borderline high TRIG 200-500 mg/dL High TRIG greater than 500 mg/dL Very high Standard traceable to the Center for Disease Conrtrol and Prevention (CDC) test method. Performed By: #### A 1C [facility] eA #### [facility] [address] [place] [address] [place] #### NICOTINE #### [facility] , VLDL CHOLESTEROL 19 mg/dL Normal [facility] Comment on above: Performed By: #### A 1C [facility] eA #### [facility] [address] [place] [address] [place] #### NICOTINE #### [facility] , Lymphocytes Auto (Bld) [#/Vo l]Ordered By: Roma Pritchard on 03-25-2023 Lymphocytes (Bld) [#/Vol] 1.6 10*3/uL 1.00-4.8 [facility] Lymphocytes/100 WBC Auto (Bl d)Ordered By: Roma Pritchard on 03-25-2023 Lymphocytes/100 WBC (Bld) 26.5 % . [facility] MCH Auto (RBC) [Entitic mass ]Ordered By: Roma Pritchard on 03-25-2023 MCH (RBC) [Entitic mass] 31.0 pg 24.7-34.3 [facility] MCHC Auto (RBC) [Mass/Vol]Or dered By: Roma Pritchard on 03-25-2023 MCHC (RBC) [Mass/Vol] 33.4 g/dL 32.0-35.0 [facility] MCV Auto (RBC) [Entitic vol] Ordered By: Roma Pritchard on 03-25-2023 MCV (RBC) [Entitic vol] 93.0 fL 80-100 [facility] Monocytes Auto (Bld) [#/Vol] Ordered By: Roma Pritchard on 03-25-2023 Monocytes (Bld) [#/Vol] 0.4 10*3/uL 0.0-0.8 [facility] Monocytes/100 WBC Auto (Bld) Ordered By: Roma Pritchard on 03-25-2023 Monocytes/100 WBC (Bld) 7.1 % . [facility] Neutrophils Auto (Bld) [#/Vo l]Ordered By: Roma Pritchard on 03-25-2023 Neutrophils (Bld) [#/Vol] 3.9 10*3/uL 1.8-7.7 [facility] Neutrophils/100 WBC Auto (Bl d)Ordered By: Roma Pritchard on 03-25-2023 Neutrophils/100 WBC (Bld) 63.9 % . [facility] No Panel InformationOrdered By: Roma Pritchard on 03-25-2023 Estimated GFR (CKD-EPI) > 60.0 mL/Min [facility] Creatinine Clearance (Chem N/A [facility] Nucleated erythrocytes [Pres ence] in Blood by Automated countOrdered By: Roma Pritchard on 03-25-2023 Nucleated RBC Auto Ql (Bld) 0.1 /100{WBC} 0-0.5 [facility] Platelet mean volume Auto (B ld) [Entitic vol]Ordered By: Roma Pritchard on 03-25-2023 Platelet mean volume (Bld) [Entitic vol] 9.6 fL 6.3-10.7 [facility] Platelets Auto (Bld) [#/Vol] Ordered By: Roma Pritchard on 03-25-2023 Platelets (Bld) [#/Vol] 248 10*3/uL 150-450 [facility] Potassium [Moles/volume] in Serum or PlasmaOrdered By: Roma Pritchard on 03-25-2023 Potassium [Moles/Vol] 4.0 mmol/L 3.5-5.1 [facility] Protein [Mass/volume] in Ser um or PlasmaOrdered By: Roma Pritchard on 03-25-2023 Protein [Mass/Vol] 6.9 g/dL 6.4-8.9 [facility] RBC Auto (Bld) [#/Vol]Ordere d By: Roma Pritchard on 03-25-2023 RBC (Bld) [#/Vol] 4.27 10*6/uL 3.60-5.00 [facility] Serum or plasma albumin/glob ulin mass ratioOrdered By: Roma Pritchard on 03-25-2023 Albumin/Globulin [Mass ratio] 1.7 {ratio} [facility] Serum or plasma anion gap de terminationOrdered By: Roma Pritchard on 03-25-2023 Anion gap [Moles/Vol] 9.9 mmol/L 6.0-15.0 [facility] Serum or plasma high density lipoprotein (HDL) cholesterol measurementOrdered By: Roma Pritchard on 03-25-2023 Cholesterol in HDL [Mass/Vol] 83 mg/dL [facility] Comment on above: HDL CHOL ATP-III CLA SSIFICATION Cardiovascular RiskHDL > or equal to 60 mg/dL LOWHDL < 40 mg/dL HIGH Serum or plasma total choles terol/high density lipoprotein (HDL) cholesterol mass ratOrdered By: Roma Pritchard on 03-25-2023 Cholesterol.total/Cho lesterol in HDL [Mass ratio] 2.0 {ratio} <5.0 [facility] Sodium [Moles/volume] in Ser um or PlasmaOrdered By: Roma Pritchard on 03-25-2023 Sodium [Moles/Vol] 142 mmol/L 136-145 [facility] Thyroid Stimulating Hormoneo n 03-25-2023 TSH Qn 1.73 m[IU]/L Normal 0.45-5.33 [facility] Comment on above: Performed By: #### A 1C WT eA #### [facility] [address] [place] [address] #### NICOTINE #### [facility] , Thyrotropin [Units/volume] i n Serum or PlasmaOrdered By: Roma Pritchard on 03-25-2023 TSH Qn 1.73 m[IU]/L 0.45-5.33 [facility] Transferrin [Mass/volume] in Serum or PlasmaOrdered By: Roma Pritchard on 01-31-2024 Transferrin [Mass/Vol] 355 mg/dL 203-362 [facility] Triglyceride [Mass/volume] i n Serum or PlasmaOrdered By: Roma Pritchard on 03-25-2023 Triglyceride [Mass/Vol] 95 mg/dL 0-149 [facility] Comment on above: TRIG ATP III CLASSIF ICATIONTRIG less than 150 mg/dL NormalTRIG 150-199 mg/dL Borderline highTRIG 200-500 mg/dL High TRIG greater than 500 mg/dL Very highStandard traceable to the Center for Disease Conrtrol and Prevention (CDC) test method. Urea nitrogen [Mass/volume] in Serum or PlasmaOrdered By: Roma Pritchard on 03-25-2023 Urea nitrogen [Mass/Vol] 18 mg/dL 7-25 [facility] Vitamin B12on 03-25-2023 Cobalamin (Vitamin B12) [Mass/Vol] 595 pg/mL Normal 180-914 [facility] Comment on above: Performed By: #### A 1C WT eA #### [address] #### NICOTINE #### [facility] , Vitamin B12 ser/plasOrdered By: Roma Pritchard on 03-25-2023 Cobalamin (Vitamin B12) [Mass/Vol] 595 pg/mL 180-914 [facility] Vitamin D 25 Hydroxy Totalon 03-25-2023 Vitamin D 25 Hydroxy Total 30.6 ng/mL Normal 30-100 [facility] Comment on above: Result Comment: AMBIKA MIN D STATUS 25(OH)VITAMIN D RANGE (ng/mL) Deficient <20 Insufficient 20 to <30 Sufficient 30 to 100 Reference: Bro MF,Salo NC, Iqra PAGE, et al. Evaluation,treatment, and prevention of vitamin D deficiency; an Endocrine Society clinical practice guideline. JCEM. 2010; 96(7):1911-30. PERFORMED BY: [place] [address] PATHOLOGIST BRICK VENEER MAKER CIRA GRAHAM M.D. Performed By: #### A 1C WT eA #### [place] [address] [place] #### NICOTINE #### [facility] , Vitamin D+Metabolites [Mass/ volume] in Serum or PlasmaOrdered By: Roma Pritchard on 03-25-2023 Vitamin D+Metabolites [Mass/Vol] 30.6 ng/mL 30-100 [facility] Comment on above: VITAMIN D STATUS 25( OH)VITAMIN D RANGE (ng/mL) Deficient <20 Insufficient 20 to <30Sufficient 30 to 100Reference: Bro MF,Salo DARNELL, Iqra PAGE, et al. Evaluation,treatment, and prevention of vitamin D deficiency; an Endocrine Society clinical practice guideline. JCEM. 2010; 96(7):1911-30. WBC Auto (Bld) [#/Vol]Ordere d By: Roma Pritchard on 03-25-2023 WBC (Bld) [#/Vol] 6.2 10*3/uL 3.8-11.6 [facility] XR shoulder RT min 2V*on XR shoulder RT min 2V* [facility] [place] [address] XRay Report Signed Patient: Teagan Gonsales MR#: [id number] : 1955 Acct:[id number] Age/Sex: 67 / F ADM Date: 03/03/23 [place] [facility] [place] Room: Type: [facility] Attending Dr: Colby Shaffer DO Copies to: [...] Yadira Augustin M.D.03/03/2023 12:33 PM Dictation Location: [place] [address] Transcribed By: MITCH 03/03/23 1233 Dictated By: Yadira Augustin MD 03/03/23 1231 Signed By: 03/03/23 1233 [facility] MM screening mammo BI w/CADo n 01-19-2023 MM screening mammo BI w/CAD [facility] [place] [address] Mammography Report Signed Patient: Teagan Gonsales MR#: [id number] : 1955 Acct:[id number] Age/Sex: 67 / F ADM Date: 01/19/23 Loc: [place] Room: Type: [facility] Attending Dr: Referral Self Copies to: Roma Pritchard DO SELF,REFERRAL Ordering Provider: SELF,REFERRAL Date of Service: [...] Ruano Jr., DNkechiONkechi01/19/2023 9:37 AM Dictation Location: D[facility]01 Transcribed By: MITCH 01/19/2337 Dictated By: Martin Ruano Jr, DO 01/19/23 0936 Signed By: 01/19/2337 [facility] RAD - MISCon 01-14-2023 [facility] [id number]#[id number] [facility] Lab Reportson 01-07-2023 Lab Reports [id number]#1.00TIFF [facility] Screenson 01-07-2023 Screens [id number]#[id number] Normal [facility] Ambulatory Visit Summaryon 1 03-08-2022 Ambulatory Visit Summary TEAGAN GONSALES :1955 Visit Date:01/06/2023 Ambulatory Visit Instructions Your Diagnosis Kidney stones Tests Performed Urnls Dip Stick Auto w/o Microscopy POC 85665 XR Abdomen 1 View -- Results Pending [...] MARIANA DUONG PA-C Where: [facility] Patient Educationon 01-07-20 23 Patient Education [...] ? 8 oz (237 mL) of milk, uqpyhfd-dwyamhdrsinj-nrsnp milk, and calcium-fortifiedfruit juice. Calcium-fortified means that [...] Spinach (cooked), rhubarb, beets, sweet potatoes, and [place]agu[place] chard. ? Peanuts. ? Potato chips, turkish fries, and baked potatoes with skin on. ? Nuts and nut products. ? Chocolate. ? If you regularly take a diuretic medicine, make sure to eat at least 1 or 2 servings of fruits or vegetables that are high in potassium each day. These include: ? Avocado. ? Banana. ? [place], prune, carrot, or tomato juice. ? Baked [...] fish oil, or vitamin B6. ? Take xfpg-dyx-jvqhjno and prescription medicines only as told by your health care provider. These include supplements. What foods should I limit? Limit your in (more content not included)... Normal [facility] Urology Office/Clinic Noteon 01-06-2023 Urology Office/Clinic Note Chief Complaint 1 year with KUB HPI Staff Previous DLS pt 1yr KUB done 01/02/23 DX: Kidney Stone Pt. states she is not longer taking Oxybutynin therapy from [facility], Pt. also states she does have the [...] pt BBS 12. Oxybutynin therapy managed by [facility], has not been taking it but has [...] Contact Information AD JONES, MARIANA Johnson, URL [address] [facility] [place] [address] Additional Instructions: 1 year w/ K[facility] Patient Education Dietary Guidelines to Help Prevent Kidney Stones Documentation recorded by the vanna Jeffries accurately reflects the services(s) I performed and decisions made by me. Authenticated by Mariana Duong PA-C on 01/06/2023 08:55:49. I, Breana Jeffries, personally scribed for Mariana Duong PA-C on [...] virus vaccine, inactivated 12/23/2022 Recorded SARS-CoV-2 (COVID-19) [id number] 11/23/2021 Recorded influenza virus vaccine, inactivated 11/20/2021 [...] Recorded z (more content not included)... Normal [facility] Comment on above: Result Comment: Elec tronically Signed By: AD PA-MARIANA Obrien\.br\Date and Time Signed: 01/06/23 08:56 EST\.br\Electronically Co-Signed By: Breana Jeffries\.br\Date and Time Co-Signed: 01/06/23 08:51 EST\.br\Electronically Co-Signed By: Breana Jeffries\.br\Date and Time Co-Signed: 01/06/23 08:52 EST Basophils Auto (Bld) [#/Vol] Ordered By: Roma Pritchard on 12-26-2022 Basophils (Bld) [#/Vol] 0.0 10*3/uL 0.0-0.2 [facility] Basophils/100 WBC Auto (Bld) Ordered By: Roma Pritchard on 12-26-2022 Basophils/100 WBC (Bld) 0.6 % . [facility] Complete Blood Count Auto Di ffon 12-26-2022 Basophils (Bld) [#/Vol] 0.0 10*3/uL Normal 0.0-0.2 [facility] Comment on above: Result Comment: PERF ORMED BY: [place] [address] PATHOLOGIST BRICK VENEER MAKER CIRA GRAHAM M.D. Performed By: #### A 1C [facility] eA #### [place] [address] [place] #### NICOTINE #### [facility] , Basophils/100 WBC (Bld) 0.6 % Normal . [facility] Comment on above: Performed By: #### A 1C [facility] eA #### [facility] [address] [place] [address] [place] #### NICOTINE #### [facility] , Eosinophils (Bld) [#/Vol] 0.3 10*3/uL Normal 0.0-0.45 [facility] Comment on above: Performed By: #### A 1C [facility] eA #### [facility] [address] [place] [address] [place] #### NICOTINE #### [facility] , Eosinophils/100 WBC (Bld) 4.1 % Normal . [facility] Comment on above: Performed By: #### A 1C WT eA #### [place] [address] [place] #### NICOTINE #### [facility] , Erythrocyte distribution width (RBC) [Ratio] 14.4 % Normal 11.9-15.3 [facility] Comment on above: Performed By: #### A 1C WT eA #### [place] [address] [place] #### NICOTINE #### [facility] , Hematocrit (Bld) [Volume fraction] 37.7 % Normal 34.0-46.4 [facility] Comment on above: Performed By: #### A 1C WT eA #### [place] [address] [place] #### NICOTINE #### [facility] , Hemoglobin (Bld) [Mass/Vol] 12.4 g/dL Normal 11.8-15.4 [facility] Comment on above: Performed By: #### A 1C WT eA #### [place] [address] [place] #### NICOTINE #### [facility] , Lymphocytes (Bld) [#/Vol] 1.7 10*3/uL Normal 1.00-4.8 [facility] Comment on above: Performed By: #### A 1C WT eA #### [place] [address] [place] #### NICOTINE #### [facility] , Lymphocytes/100 WBC (Bld) 27.1 % Normal . [facility] Comment on above: Performed By: #### A 1C WTH eA #### [place] [address] [place] #### NICOTINE #### [facility] , MCH (RBC) [Entitic mass] 30.1 pg Normal 24.7-34.3 [facility] Comment on above: Performed By: #### A 1C WTH eA #### [place] [address] [place] #### NICOTINE #### [facility] , MCV (RBC) [Entitic vol] 91.7 fL Normal 80-100 [facility] Comment on above: Performed By: #### A 1C WTH eA #### [place] [address] [place] #### NICOTINE #### [facility] , Mean Corpuscular HGB Conc 32.8 g/dL Normal 32.0-35.0 [facility] Comment on above: Performed By: #### A 1C WTH eA #### [address] #### NICOTINE #### [facility] , Monocytes (Bld) [#/Vol] 0.5 10*3/uL Normal 0.0-0.8 [facility] Comment on above: Performed By: #### A 1C WTH eA #### [place] [address] [place] #### NICOTINE #### [facility] , Monocytes/100 WBC (Bld) 8.0 % Normal . [facility] Comment on above: Performed By: #### A 1C WTH eA #### [place] [address] [place] #### NICOTINE #### [facility] , Neutrophils (Bld) [#/Vol] 3.8 10*3/uL Normal 1.8-7.7 [facility] Comment on above: Performed By: #### A 1C WTH eA #### [place] [address] [place] #### NICOTINE #### [facility] , Neutrophils/100 WBC (Bld) 60.2 % Normal . [facility] Comment on above: Performed By: #### A 1C WTH eA #### [place] [address] [place] #### NICOTINE #### [facility] , NRBC% 0.0 /100{WBC} Normal 0-0.5 [facility] Comment on above: Performed By: #### A 1C WTH eA #### [place] [address] [place] #### NICOTINE #### [facility] , Platelet mean volume (Bld) [Entitic vol] 9.8 fL Normal 6.3-10.7 [facility] Comment on above: Performed By: #### A 1C WTH eA #### [address] #### NICOTINE #### [facility] , Platelets (Bld) [#/Vol] 255 10*3/uL Normal 150-450 [facility] Comment on above: Performed By: #### A 1C WTH eA #### [address] #### NICOTINE #### [facility] , RBC (Bld) [#/Vol] 4.11 10*6/uL Normal 3.60-5.00 [facility] Comment on above: Performed By: #### A 1C WTH eA #### [place] [address] [place] #### NICOTINE #### [facility] , WBC (Bld) [#/Vol] 6.4 10*3/uL Normal 3.8-11.6 [facility] Comment on above: Performed By: #### A 1C WTH eA #### [place] [address] [place] #### NICOTINE #### [facility] , Eosinophils Auto (Bld) [#/Vo l]Ordered By: Roma Pritchard on 12-26-2022 Eosinophils (Bld) [#/Vol] 0.3 10*3/uL 0.0-0.45 [facility] Eosinophils/100 WBC Auto (Bl d)Ordered By: Roma Pritchard on 12-26-2022 Eosinophils/100 WBC (Bld) 4.1 % . [facility] Erythrocyte distribution wid th Auto (RBC) [Ratio]Ordered By: Roma Pritchard on 12-26-2022 Erythrocyte distribution width (RBC) [Ratio] 14.4 % 11.9-15.3 [facility] Ferritinon 12-26-2022 Ferritin [Mass/Vol] 31.9 ng/mL Normal 11.0-306.8 [facility] Comment on above: Performed By: #### A 1C [facility] eA #### [place] [address] [place] #### NICOTINE #### [facility] , Ferritin [Mass/volume] in Se rum or PlasmaOrdered By: Roma Pritchard on 12-26-2022 Ferritin [Mass/Vol] 31.9 ng/mL 11.0-306.8 [facility] Folateon 12-26-2022 Folate 10.7 ng/mL Normal >5.9 [facility] Comment on above: Result Comment: Ирина te reference range: >5.9 ng/ml The WHO technical consultation on folate and vitamin b12 deficiencies has determined that folate concentrations less than 4 ng/ml are considered deficient. Performed By: #### A 1C [facility] eA #### [place] [address] [place] #### NICOTINE #### [facility] , Folate [Mass/volume] in Seru m or PlasmaOrdered By: Roma Pritchard on 12-26-2022 Folate [Mass/Vol] 10.7 ng/mL >5.9 [facility] Comment on above: Folate reference ran ge: >5.9 ng/mlThe WHO technical consultation on folate and vitamin [id number] has determined that folate concentrations lessthan 4 ng/ml are considered deficient. Hematocrit Auto (Bld) [Volum e fraction]Ordered By: Roma Pritchard on 12-26-2022 Hematocrit (Bld) [Volume fraction] 37.7 % 34.0-46.4 [facility] Hemoglobin [Mass/volume] in BloodOrdered By: Roma Pritchard on 12-26-2022 Hemoglobin (Bld) [Mass/Vol] 12.4 g/dL 11.8-15.4 [facility] Iron [Mass/volume] in Serum or PlasmaOrdered By: Roma Pritchard on 12-26-2022 Iron [Mass/Vol] 51 ug/dL 50-212 [facility] Iron and TIBC Profileon 11-0 -2022 % Iron Saturation 11.6 % Low 20-50 [facility] Comment on above: Performed By: #### A 1C WT eA #### [facility] [address] [place] [address] [place] #### NICOTINE #### [facility] , Iron [Mass/Vol] 51 ug/dL Normal 50-212 [facility] Comment on above: Performed By: #### A 1C WTH eA #### [facility] [address] [place] [address] [place] #### NICOTINE #### [facility] , Total Iron Binding Capacity 440 ug/dL Normal 255-450 [facility] Comment on above: Performed By: #### A 1C WTH eA #### [facility] [address] [place] [address] [place] #### NICOTINE #### [facility] , Transferrin [Mass/Vol] 314 mg/dL Normal 203-362 [facility] Comment on above: Performed By: #### A 1C WTH eA #### [facility] [address] [place] [address] [place] #### NICOTINE #### [facility] , Iron binding capacity [Mass/ volume] in Serum or PlasmaOrdered By: Roma Pritchard on 12-26-2022 Iron binding capacity [Mass/Vol] 440 ug/dL 255-450 [facility] Iron saturation [Mass Fracti on] in Serum or PlasmaOrdered By: Roma Pritchard on 12-26-2022 Iron saturation [Mass fraction] 11.6 % 20-50 [facility] Leukocytes [#/volume] correc dinora for nucleated erythrocytes in Blood by Automated counOrdered By: Roma Pritchard on 12-26-2022 WBC corrected for nucl RBC Auto (Bld) [#/Vol] 6.4 10*3/uL 3.8-11.6 [facility] Lymphocytes Auto (Bld) [#/Vo l]Ordered By: Roma Pritchard on 12-26-2022 Lymphocytes (Bld) [#/Vol] 1.7 10*3/uL 1.00-4.8 [facility] Lymphocytes/100 WBC Auto (Bl d)Ordered By: Roma Pritchard on 12-26-2022 Lymphocytes/100 WBC (Bld) 27.1 % . [facility] MCH Auto (RBC) [Entitic mass ]Ordered By: Roma Pritchard on 12-26-2022 MCH (RBC) [Entitic mass] 30.1 pg 24.7-34.3 [facility] MCHC Auto (RBC) [Mass/Vol]Or dered By: Roma Pritchard on 12-26-2022 MCHC (RBC) [Mass/Vol] 32.8 g/dL 32.0-35.0 [facility] MCV Auto (RBC) [Entitic vol] Ordered By: Roma Pritchard on 12-26-2022 MCV (RBC) [Entitic vol] 91.7 fL 80-100 [facility] Monocytes Auto (Bld) [#/Vol] Ordered By: Roma Pritchard on 12-26-2022 Monocytes (Bld) [#/Vol] 0.5 10*3/uL 0.0-0.8 [facility] Monocytes/100 WBC Auto (Bld) Ordered By: Roma Pritchard on 12-26-2022 Monocytes/100 WBC (Bld) 8.0 % . [facility] Neutrophils Auto (Bld) [#/Vo l]Ordered By: Roma Pritchard on 12-26-2022 Neutrophils (Bld) [#/Vol] 3.8 10*3/uL 1.8-7.7 [facility] Neutrophils/100 WBC Auto (Bl d)Ordered By: Roma Pritchard on 12-26-2022 Neutrophils/100 WBC (Bld) 60.2 % . [facility] Nucleated erythrocytes [Pres ence] in Blood by Automated countOrdered By: Roma Pritchard on 12-26-2022 Nucleated RBC Auto Ql (Bld) 0.0 /100{WBC} 0-0.5 [facility] Platelet mean volume Auto (B ld) [Entitic vol]Ordered By: Roma Pritchard on 12-26-2022 Platelet mean volume (Bld) [Entitic vol] 9.8 fL 6.3-10.7 [facility] Platelets Auto (Bld) [#/Vol] Ordered By: Roma Pritchard on 12-26-2022 Platelets (Bld) [#/Vol] 255 10*3/uL 150-450 [facility] RBC Auto (Bld) [#/Vol]Ordere d By: Roma Pritchard on 12-26-2022 RBC (Bld) [#/Vol] 4.11 10*6/uL 3.60-5.00 [facility] Transferrin [Mass/volume] in Serum or PlasmaOrdered By: Roma Pritchard on 12-26-2022 Transferrin [Mass/Vol] 314 mg/dL 203-362 [facility] Vitamin B12on 12-26-2022 Cobalamin (Vitamin B12) [Mass/Vol] 351 pg/mL Normal 180-914 [facility] Comment on above: Performed By: #### A 1C [facility] #### [address] #### NICOTINE #### [facility] , Vitamin B12 ser/plasOrdered By: Roma Pritchard on 12-26-2022 Cobalamin (Vitamin B12) [Mass/Vol] 351 pg/mL 180-914 [facility] Vitamin D 25 Hydroxy Totalon 12-26-2022 Vitamin D 25 Hydroxy Total 38.1 ng/mL Normal 30-100 [facility] Comment on above: Result Comment: AMBIKA MIN D STATUS 25(OH)VITAMIN D RANGE (ng/mL) Deficient <20 Insufficient 20 to <30 Sufficient 30 to 100 Reference: Bro MF,Salo NC, Iqra PAGE, et al. Evaluation,treatment, and prevention of vitamin D deficiency; an Endocrine Society clinical practice guideline. JCEM. 2010; 96(7):1911-. PERFORMED BY: [place] [address] PATHOLOGIST BRICK VENEER MAKER CIRA GRAHAM M.D. Performed By: #### A 1C WT eA #### [place] [address] [place] #### NICOTINE #### [facility] , Vitamin D+Metabolites [Mass/ volume] in Serum or PlasmaOrdered By: Roma Pritchard on 12-26-2022 Vitamin D+Metabolites [Mass/Vol] 38.1 ng/mL 30-100 [facility] Comment on above: VITAMIN D STATUS 25( OH)VITAMIN D RANGE (ng/mL) Deficient <20 Insufficient 20 to <30Sufficient 30 to 100Reference: Bro MF,Salo NC, Iqra PAGE, et al. Evaluation,treatment, and prevention of vitamin D deficiency; an Endocrine Society clinical practice guideline. JCEM. 2010; 96(7):1911-30. WBC Auto (Bld) [#/Vol]Ordere d By: Roma Pritchard on 12-26-2022 WBC (Bld) [#/Vol] 6.4 10*3/uL 3.8-11.6 [facility] XR hip RT min 2V(w/wo pelvis )*on 12-17-2022 XR hip RT min 2V(w/wo pelvis)* [facility] [address] [place] [address] [place] [address] XRay Report Signed Patient: Teagan Gonsales MR#: [id number] : 1955 Acct:[id number] Age/Sex: 67 / F ADM Date: 12/17/22 Loc: [facility] Room: Type: [facility] Attending Dr: Ar Herman II, MD Copies [...] Ruano Jr., D.ONkechi12/17/2022 4:12 PM Dictation Location: [facility]--12 Transcribed By: [facility] 12/17/221611 Dictated By: Martin Ruano Jr, DO 12/17/22 161 Signed By: 12/17/221611 Normal [facility] XR hip RT min 2V(w/wo pelvis)* [facility] [facility] Other XR hip RT min 2V(w/wo pelvis)* [facility] [employer] Other XR hip RT min 2V(w/wo pelvis)* [address] [place] [address] [employer] Other XR hip RT min 2V(w/wo pelvis)* [place] [address] [employer] Other XR hip RT min 2V(w/wo pelvis)* XRay Report [employer] Other XR hip RT min 2V(w/wo pelvis)* Signed [employer] Other XR hip RT min 2V(w/wo pelvis)* Patient: Teagan Gonsales MR#: [id number] [employer] Other XR hip RT min 2V(w/wo pelvis)* [id number] [employer] Other XR hip RT min 2V(w/wo pelvis)* : 1955 Acct:[id number] [employer] Other XR hip RT min 2V(w/wo pelvis)* Age/Sex: 67 / F ADM Date: 12/17/22 [employer] Other XR hip RT min 2V(w/wo pelvis)* Loc: [facility] Room: Type: [facility] [employer] Other XR hip RT min 2V(w/wo pelvis)* Attending Dr: Ar Herman II, MD [employer] Other XR hip RT min 2V(w/wo pelvis)* Copies to: Ar Herman MD [employer] Other XR hip RT min 2V(w/wo pelvis)* Ordering Provider: Ar Herman MD [employer] Other XR hip RT min 2V(w/wo pelvis)* Date of Service: 12/17/22 [employer] Other XR hip RT min 2V(w/wo pelvis)* XR/XR hip RT min 2V(w/wo pelvis)*: Aftercare following joint replacement [employer] Other XR hip RT min 2V(w/wo pelvis)* surgery;[facility] [employer] [facility] [employer] Other XR hip RT min 2V(w/wo pelvis)* RIGHT HIP - 2 views: 1 view pelvis [employer] Other XR hip RT min 2V(w/wo pelvis)* CLINICAL HISTORY: Follow-up right ABBY [employer] Other XR hip RT min 2V(w/wo pelvis)* COMPARISON: Hip series 11/04/2022 [employer] Other XR hip RT min 2V(w/wo pelvis)* FINDINGS: No evidence of hardware complication or acute bony process. Degenerative changes seen [employer] Other XR hip RT min 2V(w/wo pelvis)* involving the visualized lower lumbar spine. Mild degenerative changes left hip. [employer] Other XR hip RT min 2V(w/wo pelvis)* XR/XR hip RT min 2V(w/wo pelvis)* [employer] Other XR hip RT min 2V(w/wo pelvis)* IMPRESSION: [employer] Other XR hip RT min 2V(w/wo pelvis)* NO EVIDENCE OF HARDWARE COMPLICATION.. [employer] Other XR hip RT min 2V(w/wo pelvis)* Impression dictated by: Martin Ruano Jr., D.ONkechi12/17/2022 4:12 PM [employer] Other XR hip RT min 2V(w/wo pelvis)* Dictation Location: [place] [address] [employer] Other XR hip RT min 2V(w/wo pelvis)* Transcribed By: [facility] 12/17/22 [facility] [employer] Other XR hip RT min 2V(w/wo pelvis)* Dictated By: Martin Ruano Jr, DO 12/17/22 [facility] [employer] Other XR hip RT min 2V(w/wo pelvis)* Signed By: [employer] Other XR hip RT min 2V(w/wo pelvis)* 12/17/22 [facility] [employer] Other ABO/Rh Retypeon 11-04-2022 ABO/RH Recheck Result Positive Normal [facility] Comment on above: Result Comment: PERF ORMED BY: [facility] [address] [place] [address] PATHOLOGIST BRICK VENEER MAKER CIRA GRAHAM M.D. Amphetamine Screen Ql (U)Ord ered By: Moo Saxena on 11-04-2022 Amphetamines Ql (U) Negative Negative [facility] Barbiturates [Presence] in U rine by Screen methodOrdered By: Moo Saxena on 11-04-2022 Barbiturates Screen Ql (U) Negative Negative [facility] Benzodiazepines Screen Ql (U )Ordered By: Moo Saxena on 11-04-2022 Benzodiazepines Ql (U) Negative Negative [facility] Benzoylecgonine [Presence] i n Urine by Screen methodOrdered By: Moo Saxena on 11-04-2022 Benzoylecgonine Screen Ql (U) Negative Negative [facility] Cannabinoids [Presence] in U rine by Screen methodOrdered By: Moo Saxena on 11-04-2022 Cannabinoids Screen Ql (U) Positive Negative [facility] Comment on above: These are unconfirme d results and should not be used for legal purposes. Drug Cut-Off Concentration: AMPH 1000 ng/mL SHIVANI 200 ng/mL TRESA 200 ng/mL COCM 300 ng/mL OP 300 ng/mL PCP 25 ng/mL THC 20 ng/mL Drug Screen,Urineon 11-05-19 23 Amphetamine Screen,Urine Negative Normal Negative [facility] Comment on above: Performed By: #### U RDS ####[place] [address] [place] Barbiturate Screen,Urine Negative Normal Negative [facility] Comment on above: Performed By: #### U RDS ####[place] [id number] [facility] Benzodiazepines Screen,Urine Negative Normal Negative [facility] Comment on above: Performed By: #### U RDS ####[address] Cannabinoid Screen,Urine Positive High Negative [facility] Comment on above: Result Comment: Thes e are unconfirmed results and should not be used for legal purposes. Drug Cut-Off Concentration: AMPH 1000 ng/mL SHIVANI 200 ng/mL TRESA 200 ng/mL COCM 300 ng/mL OP 300 ng/mL PCP 25 ng/mL THC 20 ng/mL PERFORMED BY: [facility] [address] [place] [address] PATHOLOGIST BRICK VENEER MAKER CIRA GRAHAM M.D. Performed By: #### U RDS ####[place] [id number] [place] Cocaine Screen,Urine Negative Normal Negative [facility] Comment on above: Performed By: #### U RDS ####[facility] [address] [place] [address] [facility] Opiate Screen,Urine Negative Normal Negative [facility] Comment on above: Performed By: #### U RDS ####[facility] [place] [id number] [facility] Phencyclidine Screen,Urine Negative Normal Negative [facility] Comment on above: Performed By: #### U RDS ####[facility] [place] [id number] [facility] Rebel 11-04-2022 L ------ Specimen: [id number] Received: 11/04/22 Status: SAIRA Mckinney Num: [id number] Spec Type: Surgical Subm Dr: Ar Herman MD Tissues: A Femoral Head - Other than Fracture (RT HIP) Procedures: HE/2, Gross/Micro L3, Decalcification Age/ Patient Sex Location Account Attending Physician Teagan Gonsales 67/F [place] [id number] Ar Herman MD SPEC NUM: [id number] RECD: 11/04/22 STATUS: SAIRA MCKINNEY NUM: [id number] CARLOS: 11/04/[address] [facility] [address]: Ar Herman MD ENTERED: 11/04/[address] [facility] [address]: CRIS TYPE: Surgical DEPT: S ORDERED: HE/2, Gross/Micro [...] taken. Gross examination only. (/) CPT Codes 68567 Specimen: [id number] Received: 11/04/22 Status: AVERYFermin Req Num: [id number] Spec Type: Surgical Subm Dr: Ar Herman MD Tissues: A Femoral Head - Other than Fracture (RT HIP) Procedures: HE/2, Gross/Micro L3, Decalcification Patient: Teagan Gonsales [id number] (Continued) Specimen: [id number] Received: 11/04/22 (Continued) Signed (signature on file) Sharmin Mcdonald MD 11/05/22 1724 Specimen: [id number] Received: 11/04/22 Status: SOUT Req Num: [id number] Spec Type: Surgical Subm Dr: Ar Herman MD Tissues: A Femoral Head - Other than Fracture (RT HIP) Procedures: MIGUEL ÁNGEL/2, Gross/Micro L3, Decalcification Patient: Teagan Gonsales [id number] (Continued) Specimen: [id number] Received: 11/04/22 (Continued) Isaias Photo Specimen: [id number] Received: 11/04/22 Status: SAIRA Mckinney Num: [id number] Spec Type: Surgical Subm Dr: Ar Herman MD Tissues: A Femoral Head - Other than Fracture (RT HIP) Procedures: HE/2, Gross/Micro L3, Decalcification Patient: Teagan Gonsales [id number] (Continued) Signed (signature on file) Werner-[place] Mcdonald MD 11/05/22 1724 [facility] Opiates [Presence] in Urine by Screen methodOrdered By: Moo Saxena on 11-04-2022 Opiates Screen Ql (U) Negative Negative [facility] Phencyclidine Screen Ql (U)O rdered By: Moo Saxena on 11-04-2022 Phencyclidine Ql (U) Negative Negative [facility] XR hip RT 1Von 11-04-2022 XR hip RT [address] [facility] [place] [address] XRay Report Signed Patient: Teagan Gonsales MR#: [id number] : 1955 Acct:[id number] Age/Sex: 67 / F ADM Date: 11/04/22 Loc: [place] Room: Type: [facility] Attending Dr: Ar Herman II, MD Copies to: Ar Herman MD Ordering Provider: Ar Herman MD Date of Service: 11/04/22 XR/XR hip RT 1V: . Intraoperative study. Reason for exam: Right ABBY Findings: 6 images were obtained intraoperatively. Right hip prosthesis was placed Cumulative Air Kerma in mGy: 0.883 mGy XR/XR hip RT 1V Impression: Intraoperative study. Impression dictated by: Martin Ruano Jr., D.O.11/04/2022 2:39 PM Dictation Location: RADIO-PC-15 Transcribed By: MITCH 11/04/22 143 Dictated By: Martin Ruano Jr, DO 11/04/221437 Signed By: 11/04/22 143 [facility] XR low pelvis w/RT x-table h ipon 11-04-2022 XR low pelvis w/RT x-table hip [facility] [place] [address] XRay Report Signed Patient: Teagan Gonsales MR#: [id number] : 1955 Acct:[id number] Age/Sex: 67 / F ADM Date: 11/04/22 Loc: [place] Room: Type: [facility] Attending Dr: Ar Herman II, MD Copies [...] Yadira Augustin M.D.11/04/2022 3:32 PM Dictation Location: RADIO-PC-10 Transcribed By: MITCH 11/04/22 153 Dictated By: Yadira Augustin MD 11/04/22 153 Signed By: 11/04/221531 [facility] Basic Metabolic Panelon 08-2 Anion gap [Moles/Vol] 10.1 mmol/L Normal 6.0-15.0 [facility] Comment on above: Performed By: #### A 1C WTH eA #### [place] [address] [place] #### NICOTINE #### [facility] , Calcium [Mass/Vol] 10.4 mg/dL High 8.6-10.3 [facility] Comment on above: Result Comment: PERF ORMED BY: [place] [address] PATHOLOGIST BRICK VENEER MAKER CIRA GRAHAM M.D. Performed By: #### A 1C WTH eA #### [address] #### NICOTINE #### [facility] , Chloride [Moles/Vol] 102 mmol/L Normal 98-107 [facility] Comment on above: Performed By: #### A 1C WTH eA #### [place] [address] [place] #### NICOTINE #### [facility] , CO2 [Moles/Vol] 32.1 mmol/L High 21.0-31.0 [facility] Comment on above: Performed By: #### A 1C WTH eA #### [address] #### NICOTINE #### [facility] , Creatinine [Mass/Vol] 0.73 mg/dL Normal 0.60-1.20 [facility] Comment on above: Performed By: #### A 1C WTH eA #### [facility] [address] [place] [address] [place] #### NICOTINE #### [facility] , GFR/1.73 sq M.predicted MDRD (S/P/Bld) [Vol rate/Area] mL/min/{1.73_m2} [facility] Comment on above: Performed By: #### A 1C WTH eA #### [facility] [address] [place] [address] [place] #### NICOTINE #### [facility] , Glucose [Mass/Vol] 81 mg/dL Normal 70-100 [facility] Comment on above: Result Comment: [place] Glucose Reference Range is dependent on time and content of last meal. Glucose of more than 200 mg/dL in a nonstressed, ambulatory subject supports the diagnosis of Diabetes Mellitus. ADA recommended reference range Performed By: #### A 1C WT eA #### [place] [address] [place] #### NICOTINE #### [facility] , Potassium [Moles/Vol] 4.2 mmol/L Normal 3.5-5.1 [facility] Comment on above: Performed By: #### A 1C WTH eA #### [place] [address] [place] #### NICOTINE #### [facility] , Sodium [Moles/Vol] 140 mmol/L Normal 136-145 [facility] Comment on above: Performed By: #### A 1C WT eA #### [place] [address] [place] #### NICOTINE #### [facility] , Urea nitrogen [Mass/Vol] 23 mg/dL Normal 7-25 [facility] Comment on above: Performed By: #### A 1C WT eA #### [place] [address] [place] #### NICOTINE #### [facility] , Basophils Auto (Bld) [#/Vol] Ordered By: Ar Herman on 10-17-2022 Basophils (Bld) [#/Vol] 0.0 10*3/uL 0.0-0.2 [facility] Basophils/100 WBC Auto (Bld) Ordered By: Ar Herman on 10-17-2022 Basophils/100 WBC (Bld) 0.5 % . [facility] Bilirubin Test strip Ql (U)O rdered By: Ar Herman on 10-17-2022 Bilirubin Ql (U) Negative Negative [facility] Calcium [Mass/volume] in Ser um or PlasmaOrdered By: Ar Herman on 10-17-2022 Calcium [Mass/Vol] 10.4 mg/dL 8.6-10.3 [facility] Carbon dioxide, total [Moles /volume] in Serum or PlasmaOrdered By: Ar Herman on 10-17-2022 CO2 [Moles/Vol] 32.1 mmol/L 21.0-31.0 [facility] Chloride [Moles/volume] in S bran or PlasmaOrdered By: Ar Herman on 10-17-2022 Chloride [Moles/Vol] 102 mmol/L 98-107 [facility] Color Auto (U)Ordered By: Bernie Herman on 10-17-2022 Color (U) Yellow Yellow [facility] Complete Blood Count Auto Di ffon 10-17-2022 Basophils (Bld) [#/Vol] 0.0 10*3/uL Normal 0.0-0.2 [facility] Comment on above: Result Comment: PERF ORMED BY: [place] [address] PATHOLOGIST BRICK VENEER MAKER CIRA GRAHAM M.D. Performed By: #### A 1C WT eA #### [place] [address] [place] #### NICOTINE #### [facility] , Basophils/100 WBC (Bld) 0.5 % Normal . [facility] Comment on above: Performed By: #### A 1C WTH eA #### [facility] [address] [place] [address] [place] #### NICOTINE #### [facility] , Eosinophils (Bld) [#/Vol] 0.1 10*3/uL Normal 0.0-0.45 [facility] Comment on above: Performed By: #### A 1C WT eA #### [facility] [address] [place] [address] [place] #### NICOTINE #### [facility] , Eosinophils/100 WBC (Bld) 1.9 % Normal . [facility] Comment on above: Performed By: #### A 1C WTH eA #### [place] [address] [place] #### NICOTINE #### [facility] , Erythrocyte distribution width (RBC) [Ratio] 14.9 % Normal 11.9-15.3 [facility] Comment on above: Performed By: #### A 1C WTH eA #### [place] [address] [place] #### NICOTINE #### [facility] , Hematocrit (Bld) [Volume fraction] 39.9 % Normal 34.0-46.4 [facility] Comment on above: Performed By: #### A 1C WTH eA #### [place] [address] [place] #### NICOTINE #### [facility] , Hemoglobin (Bld) [Mass/Vol] 13.1 g/dL Normal 11.8-15.4 [facility] Comment on above: Performed By: #### A 1C WTH eA #### [place] [address] [place] #### NICOTINE #### [facility] , Lymphocytes (Bld) [#/Vol] 1.6 10*3/uL Normal 1.00-4.8 [facility] Comment on above: Performed By: #### A 1C WTH eA #### [place] [address] [place] #### NICOTINE #### [facility] , Lymphocytes/100 WBC (Bld) 26.2 % Normal . [facility] Comment on above: Performed By: #### A 1C WTH eA #### [place] [address] [place] #### NICOTINE #### [facility] , MCH (RBC) [Entitic mass] 29.8 pg Normal 24.7-34.3 [facility] Comment on above: Performed By: #### A 1C WTH eA #### [place] [address] [place] #### NICOTINE #### [facility] , MCV (RBC) [Entitic vol] 90.4 fL Normal 80-100 [facility] Comment on above: Performed By: #### A 1C WTH eA #### [address] #### NICOTINE #### [facility] , Mean Corpuscular HGB Conc 32.9 g/dL Normal 32.0-35.0 [facility] Comment on above: Performed By: #### A 1C WTH eA #### [place] [address] [place] #### NICOTINE #### [facility] , Monocytes (Bld) [#/Vol] 0.5 10*3/uL Normal 0.0-0.8 [facility] Comment on above: Performed By: #### A 1C WT eA #### [address] #### NICOTINE #### [facility] , Monocytes/100 WBC (Bld) 8.4 % Normal . [facility] Comment on above: Performed By: #### A 1C WTH eA #### [place] [address] [place] #### NICOTINE #### [facility] , Neutrophils (Bld) [#/Vol] 3.9 10*3/uL Normal 1.8-7.7 [facility] Comment on above: Performed By: #### A 1C WTH eA #### [place] [address] [place] #### NICOTINE #### [facility] , Neutrophils/100 WBC (Bld) 63.0 % Normal . [facility] Comment on above: Performed By: #### A 1C WTH eA #### [facility] [address] [place] [address] [place] #### NICOTINE #### [facility] , NRBC% 0.2 /100{WBC} Normal 0-0.5 [facility] Comment on above: Performed By: #### A 1C WTH eA #### [place] [address] [place] #### NICOTINE #### [facility] , Platelet mean volume (Bld) [Entitic vol] 9.9 fL Normal 6.3-10.7 [facility] Comment on above: Performed By: #### A 1C WTH eA #### [place] [address] [place] #### NICOTINE #### [facility] , Platelets (Bld) [#/Vol] 245 10*3/uL Normal 150-450 [facility] Comment on above: Performed By: #### A 1C WTH eA #### [place] [address] [place] #### NICOTINE #### [facility] , RBC (Bld) [#/Vol] 4.42 10*6/uL Normal 3.60-5.00 [facility] Comment on above: Performed By: #### A 1C WTH eA #### [place] [address] [place] #### NICOTINE #### [facility] , WBC (Bld) [#/Vol] 6.2 10*3/uL Normal 3.8-11.6 [facility] Comment on above: Performed By: #### A 1C WTH eA #### [facility] [address] [place] [address] [place] #### NICOTINE #### [facility] , Creatinine [Mass/volume] in Serum or PlasmaOrdered By: Ar Herman on 10-17-2022 Creatinine [Mass/Vol] 0.73 mg/dL 0.60-1.20 [facility] ECG 12 lead ECGon 10-17-2022 ECG [address] [facility] [address] [place] [address] [place], [place] [id number] Electrocardiograph Report Signed Patient: Teagan Gonsales MR#: [id number] : 1955 Acct:[id number] Age/Sex: 67 / F ADM Date: 10/17/22 Loc: PS Room: Type: [facility] Attending Dr: Ar Herman II, MD Ordering [...] was found Confirmed by CHRIS GROVES MD ([facility]) on 10/20/2022 6:33:29 PM Referred By: VIRGIL Electronically Signed By:CHRIS GROVES MD Transcribed By: MUS Signed By Chirs Groves MD 0 10/20/22 1833 Normal [facility] Eosinophils Auto (Bld) [#/Vo l]Ordered By: Ar Herman on 10-17-2022 Eosinophils (Bld) [#/Vol] 0.1 10*3/uL 0.0-0.45 [facility] Eosinophils/100 WBC Auto (Bl d)Ordered By: Ar Herman on 10-17-2022 Eosinophils/100 WBC (Bld) 1.9 % . [facility] Erythrocyte distribution wid th Auto (RBC) [Ratio]Ordered By: Ar Herman on 10-17-2022 Erythrocyte distribution width (RBC) [Ratio] 14.9 % 11.9-15.3 [facility] Fructosamineon 10-17-2022 Fructosamine 237 umol/L Normal 0-285 [facility] Comment on above: Result Comment: Publ ished reference interval for apparently healthy subjects between age 20 and 60 is 205 - 285 umol/L and in a poorly controlled diabetic population is 228 - 563 umol/L with a mean of 396 umol/L. Performed at: [facility] [address] [place], [place] [id number] Clinical Rehabilitation Coordinator: Tripp Tejada PhD, Phone: [phone] PERFORMED BY: [place] [address] PATHOLOGIST BRICK VENEER MAKER CIRA GRAHAM M.D. Performed By: #### A [address] [place] [address] #### [address] #### NICOTINE #### [facility] , Fructosamine [Moles/volume] in Serum or PlasmaOrdered By: Ar Herman on 10-17-2022 Fructosamine [Moles/Vol] 237 umol/L 0-285 [facility] Comment on above: Published reference interval for apparently healthysubjects between age 20 and 60 is 205 - 285 umol/L and in apoorly controlled diabetic population is 228 - 563 umol/Lwith a mean of 396 umol/L.Performed at: [facility] [id number] Director: Tripp Tejada PhD, Phone: [phone] Glucose [Mass/volume] in Ser um or PlasmaOrdered By: Ar Herman on 10-17-2022 Glucose [Mass/Vol] 81 mg/dL 70-100 [facility] Comment on above: ADA recommended refe rence rangeRandom Glucose Reference Range is dependent on time and content of last meal. Glucose of more than 200 mg/dL in a nonstressed, ambulatory subject supports the diagnosis of Diabetes Mellitus. Hematocrit Auto (Bld) [Volum e fraction]Ordered By: Ar Herman on 10-17-2022 Hematocrit (Bld) [Volume fraction] 39.9 % 34.0-46.4 [facility] Hemoglobin [Mass/volume] in BloodOrdered By: Ar Herman on 10-17-2022 Hemoglobin (Bld) [Mass/Vol] 13.1 g/dL 11.8-15.4 [facility] Ketones Auto test strip (U) [Mass/Vol]Ordered By: Ar Herman on 10-17-2022 Ketones (U) [Mass/Vol] Negative Negative [facility] Leukocytes [#/volume] correc dinora for nucleated erythrocytes in Blood by Automated counOrdered By: Ar Herman on 10-17-2022 WBC corrected for nucl RBC Auto (Bld) [#/Vol] 6.2 10*3/uL 3.8-11.6 [facility] Lymphocytes Auto (Bld) [#/Vo l]Ordered By: Ar Herman on 10-17-2022 Lymphocytes (Bld) [#/Vol] 1.6 10*3/uL 1.00-4.8 [facility] Lymphocytes/100 WBC Auto (Bl d)Ordered By: Ar Herman on 10-17-2022 Lymphocytes/100 WBC (Bld) 26.2 % . [facility] MCH Auto (RBC) [Entitic mass ]Ordered By: Ar Herman on 10-17-2022 MCH (RBC) [Entitic mass] 29.8 pg 24.7-34.3 [facility] MCHC Auto (RBC) [Mass/Vol]Or dered By: Ar Herman on 10-17-2022 MCHC (RBC) [Mass/Vol] 32.9 g/dL 32.0-35.0 [facility] MCV Auto (RBC) [Entitic vol] Ordered By: Ar Herman on 10-17-2022 MCV (RBC) [Entitic vol] 90.4 fL 80-100 [facility] Monocytes Auto (Bld) [#/Vol] Ordered By: Ar Herman on 10-17-2022 Monocytes (Bld) [#/Vol] 0.5 10*3/uL 0.0-0.8 [facility] Monocytes/100 WBC Auto (Bld) Ordered By: Ar Herman on 10-17-2022 Monocytes/100 WBC (Bld) 8.4 % . [facility] Neutrophils Auto (Bld) [#/Vo l]Ordered By: Ar Herman on 10-17-2022 Neutrophils (Bld) [#/Vol] 3.9 10*3/uL 1.8-7.7 [facility] Neutrophils/100 WBC Auto (Bl d)Ordered By: Ar Herman on 10-17-2022 Neutrophils/100 WBC (Bld) 63.0 % . [facility] Nitrite Test strip Ql (U)Ord ered By: Ar Herman on 10-17-2022 Nitrite Ql (U) Negative Negative [facility] No Panel InformationOrdered By: Ar Herman on 10-17-2022 Estimated GFR (CKD-EPI) > 60.0 mL/Min [facility] Creatinine Clearance (Chem N/A [facility] Nucleated erythrocytes [Pres ence] in Blood by Automated countOrdered By: Ar Herman on 10-17-2022 Nucleated RBC Auto Ql (Bld) 0.2 /100{WBC} 0-0.5 [facility] PST Type and Screenon 2022 ABO and Rh group Nom (Bld) Blood group A Rh(D) positive Normal [facility] Comment on above: Order Comment: Date of Surgery: [id number] Platelet mean volume Auto (B ld) [Entitic vol]Ordered By: Ar Herman on 10-17-2022 Platelet mean volume (Bld) [Entitic vol] 9.9 fL 6.3-10.7 [facility] Platelets Auto (Bld) [#/Vol] Ordered By: Ar Herman on 10-17-2022 Platelets (Bld) [#/Vol] 245 10*3/uL 150-450 [facility] Potassium [Moles/volume] in Serum or PlasmaOrdered By: Ar Herman on 10-17-2022 Potassium [Moles/Vol] 4.2 mmol/L 3.5-5.1 [facility] Protein Auto test strip (U) [Mass/Vol]Ordered By: Ar Herman on 10-17-2022 Protein (U) [Mass/Vol] Negative Negative [facility] RBC Auto (Bld) [#/Vol]Ordere d By: Ar Herman on 10-17-2022 RBC (Bld) [#/Vol] 4.42 10*6/uL 3.60-5.00 [facility] Serum or plasma anion gap de terminationOrdered By: Ar Herman on 10-17-2022 Anion gap [Moles/Vol] 10.1 mmol/L 6.0-15.0 [facility] Sodium [Moles/volume] in Ser um or PlasmaOrdered By: Ar Herman on 10-17-2022 Sodium [Moles/Vol] 140 mmol/L 136-145 [facility] Specific gravity Auto test s trip (U) [Rel density]Ordered By: Ar Herman on 10-17-2022 Specific gravity (U) [Rel density] 1.018 1.001-1.03 0 [facility] Urea nitrogen [Mass/volume] in Serum or PlasmaOrdered By: Ar Herman on 10-17-2022 Urea nitrogen [Mass/Vol] 23 mg/dL 09-16 [facility] Urinalysison 10-17-2022 Appearance (U) Clear Normal Clear [facility] Comment on above: Order Comment: Name Collection Type:: Clean-Voided Midstream Performed By: #### U A #### [facility] [address] [place] [address] Bilirubin,Urine Negative Normal Negative [facility] Comment on above: Order Comment: Name Collection Type:: Clean-Voided Midstream Performed By: #### U A #### [facility] [address] [place] [address] [place] Color (U) Yellow Normal Yellow [facility] Comment on above: Order Comment: Name Collection Type:: Clean-Voided Midstream Performed By: #### U A #### [facility] [address] [place] [address] [place] Glucose Ql (U) Normal Normal Normal [facility] Comment on above: Order Comment: Name Collection Type:: Clean-Voided Midstream Performed By: #### U A #### [facility] [address] [place] [address] [place] Ketones Ql (U) Negative Normal Negative [facility] Comment on above: Order Comment: Name Collection Type:: Clean-Voided Midstream Performed By: #### U A #### [address] Leukocyte esterase Test strip Ql (U) Negative Normal Negative [facility] Comment on above: Order Comment: Name Collection Type:: Clean-Voided Midstream Performed By: #### U A #### [address] Nitrite,Urine Negative Normal Negative [facility] Comment on above: Order Comment: Name Collection Type:: Clean-Voided Midstream Performed By: #### U A #### [address] Occult Blood,Urine Negative Normal Negative [facility] Comment on above: Order Comment: Name Collection Type:: Clean-Voided Midstream Result Comment: PERF ORMED BY: [place] [address] PATHOLOGIST BRICK VENEER MAKER CIRA GRAHAM M.D. Performed By: #### U A #### [address] pH (U) 6.5 [pH] Normal 5.0-9.0 [facility] Comment on above: Order Comment: Name Collection Type:: Clean-Voided Midstream Performed By: #### U A #### [address] Protein,Urine Negative Normal Negative [facility] Comment on above: Order Comment: Name Collection Type:: Clean-Voided Midstream Performed By: #### U A #### [address] Specificy [place],Urine 1.018 Normal 1.001-1.03 0 [facility] Comment on above: Order Comment: Name Collection Type:: Clean-Voided Midstream Performed By: #### U A #### [address] Urobilinogen,Urine Normal Normal Normal [facility] Comment on above: Order Comment: Name Collection Type:: Clean-Voided Midstream Performed By: #### U A #### [facility] [address] Urine clarity by refractomet ry automatedOrdered By: Ar Herman on 10-17-2022 Clarity Refractometry automated (U) Clear Clear [facility] Urine glucose measurement by automated test strip (mass/volume)Ordered By: Ar Herman on 10-17-2022 Glucose Auto test strip (U) [Mass/Vol] Normal mg/dL Normal [facility] Urine hemoglobin detection b y automated test stripOrdered By: Ar Herman on 10-17-2022 Hemoglobin Auto test strip Ql (U) Negative Negative [facility] Urine leukocyte esterase det ection by automated test stripOrdered By: Ar Herman on 10-17-2022 Leukocyte esterase Auto test strip Ql (U) Negative Negative [facility] Urobilinogen Auto test strip (U) [Mass/Vol]Ordered By: Ar Herman on 10-17-2022 Urobilinogen (U) [Mass/Vol] Normal mg/dL Normal [facility] WBC Auto (Bld) [#/Vol]Ordere d By: Ar Herman on 10-17-2022 WBC (Bld) [#/Vol] 6.2 10*3/uL 3.8-11.6 [facility] [facility] pH Auto test strip (U)Ordere d By: Ar Herman on 10-17-2022 pH (U) 6.5 [pH] 5.0-9.0 [facility] A1C with Estimated Average G luon 09-15-2022 Glucose [Mass/Vol] 123 mg/dL Normal [facility] Comment on above: Order Comment: 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;Other alf (current) drug therap Result Comment: PERF ORMED BY: [place] [address] PATHOLOGIST BRICK VENEER MAKER CIRA GRAHAM M.D. Performed By: #### A 1C [facility] #### [facility] [address] [place] [address] [place] #### NICOTINE #### [facility] , HbA1c (Bld) [Mass fraction] 5.9 % High 4.3-5.6 [facility] Comment on above: Order Comment: 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;Other alf (current) drug therap Result Comment: Incr eased risk for diabetes: 5.7 - 6.4 diabetes: >6.4 glycemic control for adults with diabetes: <7.0 Performed By: #### A 1C WT eA #### [facility] [address] [place] [address] [place] #### NICOTINE #### [facility] , Alanine aminotransferase [En zymatic activity/volume] in Serum or PlasmaOrdered By: Roma Pritchard on 09-15-2022 ALT [Catalytic activity/Vol] 17 U/L 7-52 [facility] Albumin [Mass/volume] in Ser um or Plasma by Bromocresol green (BCG) dye binding methoOrdered By: Roma Pritchard on 09-15-2022 Albumin BCG dye [Mass/Vol] 4.4 g/dL 3.5-5.7 [facility] Alkaline phosphatase [Enzyma tic activity/volume] in Serum or PlasmaOrdered By: Roma Pritchard on 09-15-2022 ALP [Catalytic activity/Vol] 69 U/L 34-104 [facility] Aspartate aminotransferase [ Enzymatic activity/volume] in Serum or PlasmaOrdered By: Roma Pritchard on 09-15-2022 AST [Catalytic activity/Vol] 19 U/L 13-39 [facility] Basophils Auto (Bld) [#/Vol] Ordered By: Roma Pritchard on 09-15-2022 Basophils (Bld) [#/Vol] 0.0 10*3/uL 0.0-0.2 [facility] Basophils/100 WBC Auto (Bld) Ordered By: Roma Pritchard on 09-15-2022 Basophils/100 WBC (Bld) 0.6 % . [facility] Bilirubin.total [Mass/volume ] in Serum or PlasmaOrdered By: Roma Pritchard on 09-15-2022 Bilirubin [Mass/Vol] 0.8 mg/dL 0.3-1.0 [facility] Calcium [Mass/volume] in Ser um or PlasmaOrdered By: Roma Pritchard on 09-15-2022 Calcium [Mass/Vol] 9.6 mg/dL 8.6-10.3 [facility] Carbon dioxide, total [Moles /volume] in Serum or PlasmaOrdered By: Roma Pritchard on 09-15-2022 CO2 [Moles/Vol] 29.1 mmol/L 21.0-31.0 [facility] Chloride [Moles/volume] in S bran or PlasmaOrdered By: Roma Pritchard on 09-15-2022 Chloride [Moles/Vol] 105 mmol/L 98-107 [facility] Cholesterol [Mass/volume] in Serum or PlasmaOrdered By: Roma Pritchard on 09-15-2022 Cholesterol [Mass/Vol] 162 mg/dL 140-200 [facility] Comment on above: Chol less than 200 m g/dl low riskChol 201-239 mg/dl borderline riskChol 240 mg/dl and greater high risk Cholesterol in LDL Calc [Mas s/Vol]Ordered By: Roma Pritchard on 09-15-2022 Cholesterol in LDL [Mass/Vol] 66 mg/dL 0-100 [facility] Comment on above: LDL ATP III CLASSIFI CATIONLDL less than 100 mg/dL OptimalLDL 100-129 mg/dL Near or above optimalLDL 130-159 mg/dL Borderline highLDL 160-189 mg/dL HighLDL greater than 189 mg/dL Very high Cholesterol in VLDL Calc [Ma ss/Vol]Ordered By: Roma Pritchard on 09-15-2022 Cholesterol in VLDL [Mass/Vol] 32 mg/dL [facility] Complete Blood Count Auto Di ffon 09-15-2022 Basophils (Bld) [#/Vol] 0.0 10*3/uL Normal 0.0-0.2 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 Performed By: #### A 1C [facility] e[facility] #### [place] [address] [place] #### NICOTINE #### [facility] , Basophils/100 WBC (Bld) 0.6 % Normal . 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 Performed By: #### A 1C [facility] e[facility] #### [place] [address] [place] #### NICOTINE #### [facility] , Hematocrit (Bld) [Volume fraction] 35.6 % Normal 34.0-46.4 [facility] Comment on above: Order Comment: 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;Other alf (current) drug therap Performed By: #### A 1C [facility] e[facility] #### [place] [address] [place] #### NICOTINE #### [facility] , Hemoglobin (Bld) [Mass/Vol] 11.7 g/dL Low 11.8-15.4 [facility] Comment on above: Order Comment: 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;Other alf (current) drug therap Performed By: #### A [facility] eA #### [place] [address] [place] #### NICOTINE #### [facility] , Lymphocytes (Bld) [#/Vol] 1.2 10*3/uL Normal 1.00-4.8 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 Performed By: #### A 1C [facility] e[facility] #### [place] [address] [place] #### NICOTINE #### [facility] , MCV (RBC) [Entitic vol] 89.7 fL Normal 80-100 [facility] Comment on above: Order Comment: 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;Other alf (current) drug therap Performed By: #### A 1C [facility] e[facility] #### [place] [address] [place] #### NICOTINE #### [facility] , Mean Corpuscular HGB Conc 32.8 g/dL Normal 32.0-35.0 [facility] Comment on above: Order Comment: 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;Other alf (current) drug therap Performed By: #### A 1C [facility] e[facility] #### [place] [address] [place] #### NICOTINE #### [facility] , Monocytes (Bld) [#/Vol] 0.4 10*3/uL Normal 0.0-0.8 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 Performed By: #### A 1C [facility] e[facility] #### [place] [address] [place] #### NICOTINE #### [facility] , Platelet mean volume (Bld) [Entitic vol] 9.9 fL Normal 6.3-10.7 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 Performed By: #### A 1C [facility] e[facility] #### [place] [address] [place] #### NICOTINE #### [facility] , Platelets (Bld) [#/Vol] 252 10*3/uL Normal 150-450 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 Performed By: #### A 1C WT eA #### [place] [address] [place] #### NICOTINE #### [facility] , RBC (Bld) [#/Vol] 3.96 10*6/uL Normal 3.60-5.00 [facility] Comment on above: Order Comment: 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;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 Performed By: #### A 1C WT eA #### [place] [address] [place] #### NICOTINE #### [facility] , WBC (Bld) [#/Vol] 6.2 10*3/uL Normal 3.8-11.6 [facility] Comment on above: Order Comment: 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;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 Performed By: #### A 1C [facility] e[facility] #### [place] [address] [place] #### NICOTINE #### [facility] , Comprehensive Metabolic Pane rebel 09-15-2022 Albumin [Mass/Vol] 4.4 g/dL Normal 3.5-5.7 [facility] Comment on above: Order Comment: 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;Other alf (current) drug therap Performed By: #### A 1C [facility] e[facility] #### [place] [address] [place] #### NICOTINE #### [facility] , Albumin/Globulin [Mass ratio] 1.8 {ratio} Normal [facility] Comment on above: Order Comment: 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;Other alf (current) drug therap Performed By: #### A 1C [facility] e[facility] #### [place] [address] [place] #### NICOTINE #### [facility] , ALP [Catalytic activity/Vol] 69 U/L Normal 34-104 [facility] Comment on above: Order Comment: 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;Other alf (current) drug therap Performed By: #### A 1C [facility] e[facility] #### [place] [address] [place] #### NICOTINE #### [facility] , ALT [Catalytic activity/Vol] 17 U/L Normal 7-52 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 Performed By: #### A 1C WT eA #### [facility] [address] [place] [address] [place] #### NICOTINE #### [facility] , Anion gap [Moles/Vol] 10.8 mmol/L Normal 6.0-15.0 [facility] Comment on above: Order Comment: 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;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 Performed By: #### A 1C WT eA #### [facility] [address] [place] [address] [place] #### NICOTINE #### [facility] , AST [Catalytic activity/Vol] 19 U/L Normal 13-39 [facility] Comment on above: Order Comment: 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;Other alf (current) drug therap Performed By: #### A 1C WT eA #### [place] [address] [place] #### NICOTINE #### [facility] , Bilirubin [Mass/Vol] 0.8 mg/dL Normal 0.3-1.0 [facility] Comment on above: Order Comment: 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;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 Performed By: #### A 1C WT eA #### [place] [address] [place] #### NICOTINE #### [facility] , Calcium [Mass/Vol] 9.6 mg/dL Normal 8.6-10.3 [facility] Comment on above: Order Comment: 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;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 Performed By: #### A 1C WT eA #### [place] [address] [place] #### NICOTINE #### [facility] , Chloride [Moles/Vol] 105 mmol/L Normal 98-107 [facility] Comment on above: Order Comment: 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;Other alf (current) drug therap Performed By: #### A 1C WT eA #### [facility] [address] [place] [address] [place] #### NICOTINE #### [facility] , CO2 [Moles/Vol] 29.1 mmol/L Normal 21.0-31.0 [facility] Comment on above: Order Comment: 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;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 Performed By: #### A 1C [facility] e[facility] #### [place] [address] [place] #### NICOTINE #### [facility] , Creatinine [Mass/Vol] 0.72 mg/dL Normal 0.60-1.20 [facility] Comment on above: Order Comment: 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;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 Performed By: #### A [facility] eA #### [place] [address] [place] #### NICOTINE #### [facility] , GFR/1.73 sq M.predicted MDRD (S/P/Bld) [Vol rate/Area] mL/min/{1.73_m2} [facility] Comment on above: Order Comment: 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;Other alf (current) drug therap Performed By: #### A [facility] eA #### [place] [address] [place] #### NICOTINE #### [facility] , Globulin (S) [Mass/Vol] 2.4 g/dL [facility] Comment on above: Order Comment: 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;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 Glucose of more than 200 mg/dL in a nonstressed, ambulatory subject supports the diagnosis of Diabetes Mellitus. 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 Performed By: #### A [facility] eA #### [place] [address] [place] #### NICOTINE #### [facility] , Sodium [Moles/Vol] 141 mmol/L Normal 136-145 [facility] Comment on above: Order Comment: 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;Other alf (current) drug therap Performed By: #### A 1C [facility] e[facility] #### [place] [address] [place] #### NICOTINE #### [facility] , Urea nitrogen [Mass/Vol] 23 mg/dL Normal 7-25 [facility] Comment on above: Order Comment: 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;Other alf (current) drug therap Performed By: #### A 1C [facility] e[facility] #### [place] [address] [place] #### NICOTINE #### [facility] , Cotinine [Mass/volume] in Se rum or PlasmaOrdered By: Ar Herman on 09-15-2022 Cotinine [Mass/Vol] <1.0 ng/mL . [facility] Comment on above: This test was develo ped and its performance characteristicsdetermined by [facility]. It has not been cleared orapproved by the Food and Drug Administration.Cotinine levels greater than 20.0 are consistent with theuse of tobacco or tobacco cessation products.Performed at: [address] [id number] Director: Keshia Duron MD, Phone: [phone] Creatinine [Mass/volume] in Serum or PlasmaOrdered By: Roma Pritchard on 09-15-2022 Creatinine [Mass/Vol] 0.72 mg/dL 0.60-1.20 [facility] Eosinophils Auto (Bld) [#/Vo l]Ordered By: Roma Pritchard on 09-15-2022 Eosinophils (Bld) [#/Vol] 0.1 10*3/uL 0.0-0.45 [facility] Eosinophils/100 WBC Auto (Bl d)Ordered By: Roma Pritchard on 09-15-2022 Eosinophils/100 WBC (Bld) 2.1 % . [facility] Erythrocyte distribution wid th Auto (RBC) [Ratio]Ordered By: Roma Pritchard on 09-15-2022 Erythrocyte distribution width (RBC) [Ratio] 14.2 % 11.9-15.3 [facility] Folateon 09-15-2022 Folate 16.7 ng/mL Normal >5.9 [facility] Comment on above: Result Comment: Ирина te reference range: >5.9 ng/ml The WHO technical consultation on folate and vitamin b12 deficiencies has determined that folate concentrations less than 4 ng/ml are considered deficient. PERFORMED BY: [place] [address] PATHOLOGIST BRICK VENEER MAKER CIRA GRAHAM M.D. Performed By: #### F OL, LIPID, B12 #### [address] Folate [Mass/volume] in Seru m or PlasmaOrdered By: Roma Pritchard on 09-15-2022 Folate [Mass/Vol] 16.7 ng/mL >5.9 [facility] Comment on above: Folate reference ran ge: >5.9 ng/mlThe WHO technical consultation on folate and vitamin [id number] has determined that folate concentrations lessthan 4 ng/ml are considered deficient. Globulin Calc (S) [Mass/Vol] Ordered By: Roma Pritchard on 09-15-2022 Globulin (S) [Mass/Vol] 2.4 g/dL [facility] Glucose [Mass/volume] in Ser um or PlasmaOrdered By: Roma Pritchard on 09-15-2022 Glucose [Mass/Vol] 98 mg/dL 70-100 [facility] Comment on above: ADA recommended refe rence rangeRandom Glucose Reference Range is dependent on time and content of last meal. Glucose of more than 200 mg/dL in a nonstressed, ambulatory subject supports the diagnosis of Diabetes Mellitus. Glucose mean value [Mass/vol ume] in Blood Estimated from glycated hemoglobinOrdered By: Roma Pritchard on 09-15-2022 Average glucose Estimated from glycated hemoglobin (Bld) [Mass/Vol] 123 mg/dL [facility] Hematocrit Auto (Bld) [Volum e fraction]Ordered By: Roma Pritchard on 09-15-2022 Hematocrit (Bld) [Volume fraction] 35.6 % 34.0-46.4 [facility] Hemoglobin A1c percentageOrd ered By: Roma Pritchard on 09-15-2022 HbA1c (Bld) [Mass fraction] 5.9 % 4.3-5.6 [facility] Comment on above: Increased risk for d iabetes: 5.7 - 6.4diabetes: >6.4glycemic control for adults with diabetes: <7.0 Hemoglobin [Mass/volume] in BloodOrdered By: Roma Pritchard on 09-15-2022 Hemoglobin (Bld) [Mass/Vol] 11.7 g/dL 11.8-15.4 [facility] Leukocytes [#/volume] correc dinora for nucleated erythrocytes in Blood by Automated counOrdered By: Roma Pritchard on 09-15-2022 WBC corrected for nucl RBC Auto (Bld) [#/Vol] 6.2 10*3/uL 3.8-11.6 [facility] Lipid Panelon 09-15-2022 Cholesterol [Mass/Vol] 162 mg/dL Normal 140-200 [facility] Comment on above: Result Comment: Chol less than 200 mg/dl low risk Chol 201-239 mg/dl borderline risk Chol 240 mg/dl and greater high risk Performed By: #### F OL, LIPID, B12 #### [facility] [address] Cholesterol in HDL [Mass/Vol] 64 mg/dL Normal 23-92 [facility] Comment on above: Result Comment: HDL CHOL ATP-III CLASSIFICATION Cardiovascular Risk HDL > or equal to 60 mg/dL LOW HDL < 40 mg/dL HIGH Performed By: #### F OL, LIPID, B12 #### [facility] [address] Cholesterol.total/Cho lesterol in HDL [Mass ratio] 2.5 {ratio} Normal <5.0 [facility] Comment on above: Performed By: #### F OL, LIPID, B12 #### [facility] [address] LDL Cholesterol,Calculate d 66 mg/dL Normal 0-100 [facility] Comment on above: Result Comment: LDL ATP III CLASSIFICATION LDL less than 100 mg/dL Optimal LDL 100-129 mg/dL Near or above optimal LDL 130-159 mg/dL Borderline high LDL 160-189 mg/dL High LDL greater than 189 mg/dL Very high Performed By: #### F OL, LIPID, B12 #### [facility] [address] Triglyceride w/Reflex 162 mg/dL High 0-149 [facility] Comment on above: Result Comment: TRIG ATP III CLASSIFICATION TRIG less than 150 mg/dL Normal TRIG 150-199 mg/dL Borderline high TRIG 200-500 mg/dL High TRIG greater than 500 mg/dL Very high Standard traceable to the Center for Disease Conrtrol and Prevention (CDC) test method. Performed By: #### F OL, LIPID, B12 #### [facility] [address] VLDL CHOLESTEROL 32 mg/dL Normal [facility] Comment on above: Performed By: #### F OL, LIPID, B12 #### [facility] [address] [place] [id number] [facility] Lymphocytes Auto (Bld) [#/Vo l]Ordered By: Roma Pritchard on 09-15-2022 Lymphocytes (Bld) [#/Vol] 1.2 10*3/uL 1.00-4.8 [facility] Lymphocytes/100 WBC Auto (Bl d)Ordered By: Roma Pritchard on 09-15-2022 Lymphocytes/100 WBC (Bld) 19.7 % . [facility] MCH Auto (RBC) [Entitic mass ]Ordered By: Roma Pritchard on 09-15-2022 MCH (RBC) [Entitic mass] 29.5 pg 24.7-34.3 [facility] MCHC Auto (RBC) [Mass/Vol]Or dered By: Roma Pritchard on 09-15-2022 MCHC (RBC) [Mass/Vol] 32.8 g/dL 32.0-35.0 [facility] MCV Auto (RBC) [Entitic vol] Ordered By: Roma Pritchard on 09-15-2022 MCV (RBC) [Entitic vol] 89.7 fL 80-100 [facility] Monocytes Auto (Bld) [#/Vol] Ordered By: Roma Pritchard on 09-15-2022 Monocytes (Bld) [#/Vol] 0.4 10*3/uL 0.0-0.8 [facility] Monocytes/100 WBC Auto (Bld) Ordered By: Roma Pritchard on 09-15-2022 Monocytes/100 WBC (Bld) 7.1 % . [facility] Neutrophils Auto (Bld) [#/Vo l]Ordered By: Roma Pritchard on 09-15-2022 Neutrophils (Bld) [#/Vol] 4.3 10*3/uL 1.8-7.7 [facility] Neutrophils/100 WBC Auto (Bl d)Ordered By: Roma Pritchard on 09-15-2022 Neutrophils/100 WBC (Bld) 70.5 % . [facility] Nicotine [Mass/volume] in Se rum or PlasmaOrdered By: Ar Herman on 09-15-2022 Nicotine [Mass/Vol] <1.0 ng/mL . [facility] Comment on above: This test was develo ped and its performance characteristicsdetermined by [facility]. It has not been cleared orapproved by the Food and Drug Administration.Nicotine levels greater than 2.0 are consistent with theuse of tobacco or tobacco cessation products. Nicotine/Cotinine Bloodon Cotinine, Blood <1.0 Normal . 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 It has not been cleared or approved by the Food and Drug Administration. Cotinine levels greater than 20.0 are consistent with the use of tobacco or tobacco cessation products. Performed at: [address] [id number] Clinical Rehabilitation Coordinator: Keshia Duron MD, Phone: [phone] PERFORMED BY: [place] [address] PATHOLOGIST BRICK VENEER MAKER CIRA GRAHAM M.D. Performed By: #### A [facility] eA #### [address] #### NICOTINE #### [facility] , Nicotine, Blood <1.0 Normal . [facility] Comment on above: Order Comment: 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;Other alf (current) drug therap Result Comment: This test was developed and its performance characteristics determined by [facility]. It has not been cleared or approved by the Food and Drug Administration. Nicotine levels greater than 2.0 are consistent with the use of tobacco or tobacco cessation products. Performed By: #### A 1C [facility] eA #### [place] [address] [place] #### NICOTINE #### [facility] , No Panel InformationOrdered By: Roma Pritchard on 09-15-2022 Estimated GFR (CKD-EPI) > 60.0 mL/Min [facility] Creatinine Clearance (Chem N/A [facility] Nucleated erythrocytes [Pres ence] in Blood by Automated countOrdered By: Roma Pritchard on 09-15-2022 Nucleated RBC Auto Ql (Bld) 0.2 /100{WBC} 0-0.5 [facility] Platelet mean volume Auto (B ld) [Entitic vol]Ordered By: Roma Pritchard on 09-15-2022 Platelet mean volume (Bld) [Entitic vol] 9.9 fL 6.3-10.7 [facility] Platelets Auto (Bld) [#/Vol] Ordered By: Roma Pritchard on 09-15-2022 Platelets (Bld) [#/Vol] 252 10*3/uL 150-450 [facility] Potassium [Moles/volume] in Serum or PlasmaOrdered By: Roma Pritchard on 09-15-2022 Potassium [Moles/Vol] 3.9 mmol/L 3.5-5.1 [facility] Protein [Mass/volume] in Ser um or PlasmaOrdered By: Roma Pritchard on 09-15-2022 Protein [Mass/Vol] 6.8 g/dL 6.4-8.9 [facility] RBC Auto (Bld) [#/Vol]Ordere d By: Roma Pritchard on 09-15-2022 RBC (Bld) [#/Vol] 3.96 10*6/uL 3.60-5.00 [facility] Serum or plasma albumin/glob ulin mass ratioOrdered By: Roma Pritchard on 09-15-2022 Albumin/Globulin [Mass ratio] 1.8 {ratio} [facility] Serum or plasma anion gap de terminationOrdered By: Roma Pritchard on 09-15-2022 Anion gap [Moles/Vol] 10.8 mmol/L 6.0-15.0 [facility] Serum or plasma high density lipoprotein (HDL) cholesterol measurementOrdered By: Roma Pritchard on 09-15-2022 Cholesterol in HDL [Mass/Vol] 64 mg/dL 23-92 [facility] Comment on above: HDL CHOL ATP-III CLA SSIFICATION Cardiovascular RiskHDL > or equal to 60 mg/dL LOWHDL < 40 mg/dL HIGH Serum or plasma total choles terol/high density lipoprotein (HDL) cholesterol mass ratOrdered By: Roma Pritchard on 09-15-2022 Cholesterol.total/Cho lesterol in HDL [Mass ratio] 2.5 {ratio} <5.0 [facility] Sodium [Moles/volume] in Ser um or PlasmaOrdered By: Roma Pritchard on 09-15-2022 Sodium [Moles/Vol] 141 mmol/L 136-145 [facility] Triglyceride [Mass/volume] i n Serum or PlasmaOrdered By: Roma Pritchard on 09-15-2022 Triglyceride [Mass/Vol] 162 mg/dL 0-149 [facility] Comment on above: TRIG ATP III CLASSIF ICATIONTRIG less than 150 mg/dL NormalTRIG 150-199 mg/dL Borderline highTRIG 200-500 mg/dL High TRIG greater than 500 mg/dL Very highStandard traceable to the Center for Disease Conrtrol and Prevention (CDC) test method. Urea nitrogen [Mass/volume] in Serum or PlasmaOrdered By: Roma Pritchard on 09-15-2022 Urea nitrogen [Mass/Vol] 23 mg/dL 7-25 [facility] Vitamin B12on 09-15-2022 Cobalamin (Vitamin B12) [Mass/Vol] 409 pg/mL Normal 180-914 [facility] Comment on above: Performed By: #### F OL, LIPID, B12 #### [address] Vitamin B12 ser/plasOrdered By: Roma Pritchard on 09-15-2022 Cobalamin (Vitamin B12) [Mass/Vol] 409 pg/mL 180-914 [facility] Vitamin D 25 Hydroxy Totalon 09-15-2022 Vitamin D 25 Hydroxy Total 28.1 ng/mL Low 30-100 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 Evaluation,treatment, and prevention of vitamin D deficiency; an Endocrine Society clinical practice guideline. JCEM. 2010; 96(7):1911-30. PERFORMED BY: [facility] [address] [place] [address] PATHOLOGIST BRICK VENEER MAKER CIRA GRAHAM M.D. Performed By: #### A [facility]C [facility] eA #### [facility] [address] #### NICOTINE #### [facility] , Vitamin D+Metabolites [Mass/ volume] in Serum or PlasmaOrdered By: Roma Pritchard on 09-15-2022 Vitamin D+Metabolites [Mass/Vol] 28.1 ng/mL 30-100 [facility] Comment on above: VITAMIN D STATUS 25( [place])VITAMIN D RANGE (ng/mL) Deficient <20 Insufficient 20 to <30Sufficient 30 to 100Reference: Bro MF,Salo NC, Iqra PAGE, et al. Evaluation,treatment, and prevention of vitamin D deficiency; an Endocrine Society clinical practice guideline. JCEM. 2010; 96(7):1911-30. WBC Auto (Bld) [#/Vol]Ordere d By: Roma Pritchard on 09-15-2022 WBC (Bld) [#/Vol] 6.2 10*3/uL 3.8-11.6 [facility] US THYROIDon 04-15-2022 US THYROID EXAMINATION: US [...] by: PAIGE CLAYTON Date: 2022-04-15 08:[address] [facility] XR CSPINE MIN 4 VIEWSon 03-26 [...] by: PAIGE CLAYTON Date: 2022-04-04 12:[address] [facility] Albumin [Mass/volume] in Ser um or PlasmaOrdered By: Roma Pritchard on 03-28-2022 Albumin [Mass/Vol] 3.8 g/dL 3.2-5.5 [facility] Automated erythrocytes count in urine sediment (number/area)Ordered By: Roma Pritchard on 03-28-2022 RBC Auto (Urine sed) [#/Area] 3-4 [HPF] 0-4 [facility] Automated leukocytes count i n urine sediment (number/area)Ordered By: Roma Pritchard on 03-28-2022 WBC Auto (Urine sed) [#/Area] 20-49 [HPF] 0-4 [facility] Automated urine sediment claudia cium oxalate crystal count by microscopy (number/high powOrdered By: Roma Pritchard on 03-28-2022 Calcium oxalate crystals LM.HPF (Urine sed) [#/Area] 1+ [HPF] [facility] Basophils Auto (Bld) [#/Vol] Ordered By: Roma Pritchard on 03-28-2022 Basophils (Bld) [#/Vol] 0.0 10*3/uL 0.0-0.2 [facility] Basophils/100 WBC Auto (Bld) Ordered By: Roma Pritchard on 03-28-2022 Basophils/100 WBC (Bld) 0.6 % . [facility] Bilirubin Test strip Ql (U)O rdered By: Roma Pritchard on 03-28-2022 Bilirubin Ql (U) Negative Negative [facility] CT biopsyOrdered By: Roma hidalgo on 03-28-2022 Transferrin [Mass/Vol] 333 mg/dL 180-380 [facility] Cholesterol [Mass/volume] in Serum or PlasmaOrdered By: Roma Pritchard on 03-28-2022 Cholesterol [Mass/Vol] 186 mg/dL 140-200 [facility] Comment on above: Chol less than 200 m g/dl low riskChol 201-239 mg/dl borderline riskChol 240 mg/dl and greater high risk Cholesterol in LDL Calc [Mas s/Vol]Ordered By: Roma Pritchard on 03-28-2022 Cholesterol in LDL [Mass/Vol] 84 mg/dL 0-100 [facility] Comment on above: LDL ATP III CLASSIFI CATIONLDL less than 100 mg/dL OptimalLDL 100-129 mg/dL Near or above optimalLDL 130-159 mg/dL Borderline highLDL 160-189 mg/dL HighLDL greater than 189 mg/dL Very high Cholesterol in VLDL Calc [Ma ss/Vol]Ordered By: Roma Pritchard on 03-28-2022 Cholesterol in VLDL [Mass/Vol] 26 mg/dL [facility] Color Auto (U)Ordered By: Radu Pritchard on 03-28-2022 Color (U) Yellow Yellow [facility] Creatinine and Glomerular fi ltration rate.predicted panel (S/P/Bld)Ordered By: Roma Pritchard on 03-28-2022 Creatinine [Mass/Vol] 0.77 mg/dL 0.44-1.03 [facility] Eosinophils Auto (Bld) [#/Vo l]Ordered By: Roma Pritchard on 03-28-2022 Eosinophils (Bld) [#/Vol] 0.1 10*3/uL 0.0-0.45 [facility] Eosinophils/100 WBC Auto (Bl d)Ordered By: Roma Pritchard on 03-28-2022 Eosinophils/100 WBC (Bld) 2.0 % . [facility] Erythrocyte distribution wid th Auto (RBC) [Ratio]Ordered By: Roma Pritchard on 03-28-2022 Erythrocyte distribution width (RBC) [Ratio] 14.0 % 11.9-15.3 [facility] Estimated glomerular filtrat ion rate (GFR) non- AmericanOrdered By: Roma Pritchard on 03-28-2022 GFR/1.73 sq M.predicted among non-blacks MDRD (S/P/Bld) [Vol rate/Area] > 60 mL/Min [facility] Ferritin [Mass/volume] in Se rum or PlasmaOrdered By: Roma Pritchard on 03-28-2022 Ferritin [Mass/Vol] 31.5 ng/mL 11-306.8 [facility] Folate [Mass/volume] in Seru m or PlasmaOrdered By: Roma Pritchard on 03-28-2022 Folate [Mass/Vol] 13.6 ng/mL >5.9 [facility] Comment on above: Folate reference ran ge: >5.9 ng/mlThe WHO technical consultation on folate and vitamin l86oyoodtayntiw has determined that folate concentrations lessthan 4 ng/ml are considered deficient. Globulin Calc (S) [Mass/Vol] Ordered By: Roma Pritchard on 03-28-2022 Globulin (S) [Mass/Vol] 2.4 g/dL [facility] Hematocrit Auto (Bld) [Volum e fraction]Ordered By: Roma Pritchard on 03-28-2022 Hematocrit (Bld) [Volume fraction] 41.2 % 34.0-46.4 [facility] Hemoglobin [Mass/volume] in BloodOrdered By: Roma Pritchard on 03-28-2022 Hemoglobin (Bld) [Mass/Vol] 13.3 g/dL 11.8-15.4 [facility] Iron [Mass/volume] in Serum or PlasmaOrdered By: Roma Pritchard on 03-28-2022 Iron [Mass/Vol] 82 ug/dL 40-150 [facility] Iron binding capacity [Mass/ volume] in Serum or PlasmaOrdered By: Roma Pritchard on 03-28-2022 Iron binding capacity [Mass/Vol] 466 ug/dL 255-450 [facility] Iron saturation [Mass Fracti on] in Serum or PlasmaOrdered By: Roma Pritchard on 03-28-2022 Iron saturation [Mass fraction] 17.6 % 20-50 [facility] Ketones Auto test strip (U) [Mass/Vol]Ordered By: Roma Pritchard on 03-28-2022 Ketones (U) [Mass/Vol] Negative Negative [facility] - Chemistry and C hemistry - challengeOrdered By: Roma Pritchard on 03-28-2022 Cobalamin (Vitamin B12) [Mass/Vol] 540 pg/mL 180-914 [facility] - UrinalysisOrder ed By: Roma Pritchard on 03-28-2022 Hyaline casts LM Ql (Urine sed) 0-8 [LPF] 0-8 [facility] Leukocytes [#/volume] correc dinora for nucleated erythrocytes in Blood by Automated counOrdered By: Roma Pritchard on 03-28-2022 WBC corrected for nucl RBC Auto (Bld) [#/Vol] 7.0 10*3/uL 3.8-11.6 [facility] Lymphocytes Auto (Bld) [#/Vo l]Ordered By: oRma Pritchard on 03-28-2022 Lymphocytes (Bld) [#/Vol] 1.8 10*3/uL 1.00-4.8 [facility] Lymphocytes/100 WBC Auto (Bl d)Ordered By: Roma Pritchard on 03-28-2022 Lymphocytes/100 WBC (Bld) 25.7 % . [facility] MCH Auto (RBC) [Entitic mass ]Ordered By: Roma Pritchard on 03-28-2022 MCH (RBC) [Entitic mass] 29.8 pg 24.7-34.3 [facility] MCHC Auto (RBC) [Mass/Vol]Or dered By: Roma Pritchard on 03-28-2022 MCHC (RBC) [Mass/Vol] 32.3 g/dL 32.0-35.0 [facility] MCV Auto (RBC) [Entitic vol] Ordered By: Roma Pritchard on 03-28-2022 MCV (RBC) [Entitic vol] 92.1 fL 80-100 [facility] Monocytes Auto (Bld) [#/Vol] Ordered By: Roma Pritchard on 03-28-2022 Monocytes (Bld) [#/Vol] 0.3 10*3/uL 0.0-0.8 [facility] Monocytes/100 WBC Auto (Bld) Ordered By: Roma Pritchard on 03-28-2022 Monocytes/100 WBC (Bld) 4.5 % . [facility] Neutrophils Auto (Bld) [#/Vo l]Ordered By: Roma Pritchard on 03-28-2022 Neutrophils (Bld) [#/Vol] 4.7 10*3/uL 1.8-7.7 [facility] Neutrophils/100 WBC Auto (Bl d)Ordered By: Roma Pritchard on 03-28-2022 Neutrophils/100 WBC (Bld) 67.2 % . [facility] Nitrite Test strip Ql (U)Ord ered By: Roma Pritchard on 03-28-2022 Nitrite Ql (U) Negative Negative [facility] No Panel InformationOrdered By: Roma Pritchard on 03-28-2022 25-Hydroxy Vitamin D Total 41.1 ng/mL 30-100 [facility] Comment on above: VITAMIN D STATUS 25( OH)VITAMIN D RANGE (ng/mL) Deficient <20 Insufficient 20 to <30Sufficient 30 to 100Reference: Bro WHITE,Salo NC, Iqra PAGE, et al. Evaluation,treatment, and prevention of vitamin D deficiency; an Endocrine Society clinical practice guideline. JCEM. 2010; 96(7):1911-30. Estimated GFR () > 60 mL/Min [facility] Comment on above: GFR estimated refere nce range: According to KDOQI guidelines, <60 ml/min/1.73m2 is sufficient to diagnose a patient with chronic kidney disease. Pharmacy Creatinine Clearance (Chem N/A [facility] Nucleated erythrocytes [Pres ence] in Blood by Automated countOrdered By: Roma Pritchard on 03-28-2022 Nucleated RBC Auto Ql (Bld) 0.0 /100{WBC} 0-0.5 [facility] Platelet mean volume Auto (B ld) [Entitic vol]Ordered By: Roma Pritchard on 03-28-2022 Platelet mean volume (Bld) [Entitic vol] 9.6 fL 6.3-10.7 [facility] Platelets Auto (Bld) [#/Vol] Ordered By: Roma Pritchard on 03-28-2022 Platelets (Bld) [#/Vol] 213 10*3/uL 150-450 [facility] Protein Auto test strip (U) [Mass/Vol]Ordered By: Roma Pritchard on 03-28-2022 Protein (U) [Mass/Vol] Negative Negative [facility] Protein [Mass/volume] in Ser um or PlasmaOrdered By: Roma Pritchard on 03-28-2022 Protein [Mass/Vol] 6.2 g/dL 6.1-7.9 [facility] RBC Auto (Bld) [#/Vol]Ordere d By: Roma Pritchard on 03-28-2022 RBC (Bld) [#/Vol] 4.48 10*6/uL 3.60-5.00 [facility] Serum or plasma alanine hoff otransferase measurement without P-5'-P (enzymatic activiOrdered By: Roma Pritchard on 03-28-2022 ALT No additional P-5'-P [Catalytic activity/Vol] 23 U/L 10-60 [facility] Serum or plasma albumin/glob ulin mass ratioOrdered By: Roma Pritchard on 03-28-2022 Albumin/Globulin [Mass ratio] 1.6 {ratio} [facility] Serum or plasma alkaline apollo sphatase measurement (enzymatic activity/volume)Ordered By: Roma Pritchard on 03-28-2022 ALP [Catalytic activity/Vol] 60 U/L 32-92 [facility] Serum or plasma anion gap de terminationOrdered By: Roma Pritchard on 03-28-2022 Anion gap [Moles/Vol] 9.1 mmol/L 6.0-15.0 [facility] Serum or plasma aspartate am inotransferase measurement (enzymatic activity/volume)Ordered By: Roma Pritchard on 03-28-2022 AST [Catalytic activity/Vol] 17 U/L 10-42 [facility] Serum or plasma calcium carrie urement (mass/volume)Ordered By: Roma Pritchard on 03-28-2022 Calcium [Mass/Vol] 9.4 mg/dL 8.2-10.2 [facility] Serum or plasma chloride ritu surement (moles/volume)Ordered By: Roma Pritchard on 03-28-2022 Chloride [Moles/Vol] 104 mmol/L 95-114 [facility] Serum or plasma glucose carrie urement (mass/volume)Ordered By: Roma Pritchard on 03-28-2022 Glucose [Mass/Vol] 89 mg/dL 70-100 [facility] Comment on above: ADA recommended refe rence rangeRandom Glucose Reference Range is dependent on time and content of last meal. Glucose of more than 200 mg/dL in a nonstressed, ambulatory subject supports the diagnosis of Diabetes Mellitus. Serum or plasma high density lipoprotein (HDL) cholesterol measurementOrdered By: Roma Pritchard on 03-28-2022 Cholesterol in HDL [Mass/Vol] 76 mg/dL 35-85 [facility] Comment on above: HDL CHOL ATP-III CLA SSIFICATION Cardiovascular RiskHDL > or equal to 60 mg/dL LOWHDL < 40 mg/dL HIGH Serum or plasma potassium me asurement (moles/volume)Ordered By: Roma Pritchard on 03-28-2022 Potassium [Moles/Vol] 4.0 mmol/L 3.5-5.1 [facility] Serum or plasma sodium measu rement (moles/volume)Ordered By: Roma Pritchard on 03-28-2022 Sodium [Moles/Vol] 137 mmol/L 136-146 [facility] Serum or plasma total biliru bin measurement (mass/volume)Ordered By: Roma Pritchard on 03-28-2022 Bilirubin [Mass/Vol] 0.3 mg/dL 0.3-1.2 [facility] Serum or plasma total carbon dioxide measurement (moles/volume)Ordered By: Roma Pritchard on 03-28-2022 CO2 [Moles/Vol] 27.9 mmol/L 22.0-30.0 [facility] Serum or plasma total choles terol/high density lipoprotein (HDL) cholesterol mass ratOrdered By: Roma Pritchard on 03-28-2022 Cholesterol.total/Cho lesterol in HDL [Mass ratio] 2.4 {ratio} <5.0 [facility] Serum or plasma urea nitroge n measurement (mass/volume)Ordered By: Roma Pritchard on 03-28-2022 Urea nitrogen [Mass/Vol] 20 mg/dL 9-23 [facility] Specific gravity Auto test s trip (U) [Rel density]Ordered By: Roma Pritchard on 03-28-2022 Specific gravity (U) [Rel density] 1.019 1.001-1.03 0 [facility] Squamous epithelial cells de tection in urine sediment by light microscopyOrdered By: Roma Pritchard on 03-28-2022 Epithelial cells.squamous LM Ql (Urine sed) 3-4 [HPF] 0-2 [facility] TSH DL <= 0.005 mIU/L QnOrde red By: Roma Pritchard on 03-28-2022 TSH Qn 1.25 m[IU]/L 0.45-5.33 [facility] Triglyceride [Mass/volume] i n Serum or PlasmaOrdered By: Roma Pritchard on 03-28-2022 Triglyceride [Mass/Vol] 132 mg/dL 35-149 [facility] Comment on above: TRIG ATP III CLASSIF ICATIONTRIG less than 150 mg/dL NormalTRIG 150-199 mg/dL Borderline highTRIG 200-500 mg/dL High TRIG greater than 500 mg/dL Very highStandard traceable to the Center for Disease Conrtrol and Prevention (CDC) test method. Urine bacteria detection by automated methodOrdered By: Roma Pritchard on 03-28-2022 Bacteria Auto Ql (U) None seen None Seen [facility] Urine clarity by refractomet ry automatedOrdered By: Roma Pritchard on 03-28-2022 Clarity Refractometry automated (U) Turbid Clear [facility] Urine glucose measurement by automated test strip (mass/volume)Ordered By: Roma Pritchard on 03-28-2022 Glucose Auto test strip (U) [Mass/Vol] Normal mg/dL Normal [facility] Urine hemoglobin detection b y automated test stripOrdered By: Roma Pritchard on 03-28-2022 Hemoglobin Auto test strip Ql (U) Negative Negative [facility] Urine leukocyte esterase det ection by automated test stripOrdered By: Roma Pritchard on 03-28-2022 Leukocyte esterase Auto test strip Ql (U) 3+ Negative [facility] Urine sediment crystal ident ification by light microscopyOrdered By: Roma Pritchard on 03-28-2022 Crystals LM Nom (Urine sed) None seen [HPF] [facility] Urobilinogen Auto test strip (U) [Mass/Vol]Ordered By: Roma Pritchard on 03-28-2022 Urobilinogen (U) [Mass/Vol] Normal mg/dL Normal [facility] WBC Auto (Bld) [#/Vol]Ordere d By: Roma Pritchard on 03-28-2022 WBC (Bld) [#/Vol] 7.0 10*3/uL 3.8-11.6 [facility] pH Auto test strip (U)Ordere d By: Roma Pritchard on 03-28-2022 pH (U) 5.5 [pH] 5.0-9.0 [facility] XR hip RT min 2V(w/wo pelvis )*on 03-05-2022 XR hip RT min 2V(w/wo pelvis)* [facility] [employer] Other XR hip RT min 2V(w/wo pelvis)* [place] [address] [employer] Other XR hip RT min 2V(w/wo pelvis)* [address] [facility] [employer] Other XR hip RT min 2V(w/wo pelvis)* [place] [address] [employer] Other XR hip RT min 2V(w/wo pelvis)* XRay Report [employer] Other XR hip RT min 2V(w/wo pelvis)* Signed [employer] Other XR hip RT min 2V(w/wo pelvis)* Patient: Teagan Gonsales MR#: [id number] [employer] Other XR hip RT min 2V(w/wo pelvis)* [id number] [employer] Other XR hip RT min 2V(w/wo pelvis)* : 1955 Acct:[id number] [employer] Other XR hip RT min 2V(w/wo pelvis)* Age/Sex: 66 / F ADM Date: 03/05/22 [employer] Other XR hip RT min 2V(w/wo pelvis)* Loc: [facility] Room: Type: [facility] [employer] Other XR hip RT min 2V(w/wo pelvis)* Attending Dr: Ar Herman II, MD [employer] Other XR hip RT min 2V(w/wo pelvis)* Copies to: Ar Herman MD [employer] Other XR hip RT min 2V(w/wo pelvis)* Ordering Provider: Ar Herman MD [employer] Other XR hip RT min 2V(w/wo pelvis)* Date of Service: 03/05/22 [employer] Other XR hip RT min 2V(w/wo pelvis)* XR/XR hip RT min 2V(w/wo pelvis)*: Right hip pain [employer] Other XR hip RT min 2V(w/wo pelvis)* RIGHT HIP - 2 views: [employer] Other XR hip RT min 2V(w/wo pelvis)* CLINICAL HISTORY: Lateral right hip pain for years with weakness. [employer] Other XR hip RT min 2V(w/wo pelvis)* COMPARISON: Hip series 01/19/2019 [employer] Other XR hip RT min 2V(w/wo pelvis)* FINDINGS: Moderate degenerative changes of both hips without acute bony process. Additional [employer] Other XR hip RT min 2V(w/wo pelvis)* degenerative changes involving the visualized lower lumbar spine and SI joints. [employer] Other XR hip RT min 2V(w/wo pelvis)* XR/XR hip RT min 2V(w/wo pelvis)* [employer] Other XR hip RT min 2V(w/wo pelvis)* IMPRESSION: [employer] Other XR hip RT min 2V(w/wo pelvis)* MODERATE DEGENERATIVE CHANGES OF BOTH HIPS WITHOUT ACUTE BONY PROCESS.. [employer] Other XR hip RT min 2V(w/wo pelvis)* Impression dictated by: Martin Ruano Jr., D.O.03/05/2022 3:03 PM [employer] Other XR hip RT min 2V(w/wo pelvis)* Dictation Location: [place] [address] [employer] Other XR hip RT min 2V(w/wo pelvis)* Transcribed By: PWS 03/05/22 [facility] [employer] Other XR hip RT min 2V(w/wo pelvis)* Dictated By: Martin Ruano Jr, DO 03/05/22 1502 [employer] Other XR hip RT min 2V(w/wo pelvis)* Signed By: [employer] Other XR hip RT min 2V(w/wo pelvis)* 03/05/22 [facility] [employer] Other XR KUB 1 VIEWon 12-30-2021 XR [...] by: ROMA BOUDREAUX Date: 2021-12-30 17:[address] [facility] Urine culture routineOrdered By: Roma Pritchard on 09-25-2021 Bacteria identified Cx Nom (U) 2 Days [facility] Automated erythrocytes count in urine sediment (number/area)Ordered By: Roma Pritchard on 09-23-2021 RBC Auto (Urine sed) [#/Area] 3-4 [HPF] 0-4 [facility] Automated leukocytes count i n urine sediment (number/area)Ordered By: Roma Pritchard on 09-23-2021 WBC Auto (Urine sed) [#/Area] 10-19 [HPF] 0-4 [facility] Automated urine sediment claudia cium oxalate crystal count by microscopy (number/high powOrdered By: Roma Pritchard on 09-23-2021 Calcium oxalate crystals LM.HPF (Urine sed) [#/Area] 2+ [HPF] [facility] Basophils Auto (Bld) [#/Vol] Ordered By: Roma Pritchard on 09-23-2021 Basophils (Bld) [#/Vol] 0.0 10*3/uL 0.0-0.2 [facility] Basophils/100 WBC Auto (Bld) Ordered By: Roma Pritchard on 09-23-2021 Basophils/100 WBC (Bld) 0.6 % . [facility] Bilirubin Auto test strip Ql (U)Ordered By: Roma Pritchard on 09-23-2021 Bilirubin Ql (U) Negative Negative [facility] Blood hemoglobin measurement (mass/volume)Ordered By: Roma Pritchard on 09-23-2021 Hemoglobin (Bld) [Mass/Vol] 13.5 g/dL 11.8-15.4 [facility] Blood leukocytes automated c ount (number/volume)Ordered By: Roma Pritchard on 09-23-2021 WBC (Bld) [#/Vol] 5.9 10*3/uL 4.5-11.0 [facility] Body fluid albumin measureme nt (mass/volume)Ordered By: Roma Pritchard on 09-23-2021 Albumin (Body fld) [Mass/Vol] 3.9 g/dL 3.2-5.[address] [facility] [address] biopsyOrdered By: Roma hidalgo on 09-23-2021 Transferrin [Mass/Vol] 290 mg/dL 180-380 [facility] Cholesterol [Mass/volume] in Serum or PlasmaOrdered By: Roma Pritchard on 09-23-2021 Cholesterol [Mass/Vol] 158 mg/dL 140-200 [facility] Comment on above: Chol less than 200 m g/dl low risk Chol 201-239 mg/dl borderline risk Chol 240 mg/dl and greater high risk Cholesterol in LDL Calc [Mas s/Vol]Ordered By: Roma Pritchard on 09-23-2021 Cholesterol in LDL [Mass/Vol] 64 mg/dL 0-100 [facility] Comment on above: LDL ATP III CLASSIFI CATION LDL less than 100 mg/dL Optimal LDL 100-129 mg/dL Near or above optimal LDL 130-159 mg/dL Borderline high LDL 160-189 mg/dL High LDL greater than 189 mg/dL Very high Cholesterol in VLDL Calc [Ma ss/Vol]Ordered By: Roma Pritchard on 09-23-2021 Cholesterol in VLDL [Mass/Vol] 39 mg/dL [facility] Creatinine and Glomerular fi ltration rate.predicted panel (S/P/Bld)Ordered By: Roma Pritchard on 09-23-2021 Creatinine [Mass/Vol] 0.64 mg/dL 0.44-1.03 [facility] Eosinophils Auto (Bld) [#/Vo l]Ordered By: Roma Pritchard on 09-23-2021 Eosinophils (Bld) [#/Vol] 0.2 10*3/uL 0.0-0.45 [facility] Eosinophils/100 WBC Auto (Bl d)Ordered By: Roma Pritchard on 09-23-2021 Eosinophils/100 WBC (Bld) 2.6 % . [facility] Erythrocyte distribution wid th Auto (RBC) [Ratio]Ordered By: Roma Pritchard on 09-23-2021 Erythrocyte distribution width (RBC) [Ratio] 12.7 % 11.9-15.3 [facility] Estimated glomerular filtrat ion rate (GFR) non- AmericanOrdered By: Roma Pritchard on 09-23-2021 GFR/1.73 sq M.predicted among non-blacks MDRD (S/P/Bld) [Vol rate/Area] > 60 mL/Min [facility] Ferritin [Mass/volume] in Se rum or PlasmaOrdered By: Roma Pritchard on 09-23-2021 Ferritin [Mass/Vol] 101.7 ng/mL 11-306.8 [facility] Folate [Mass/volume] in Seru m or PlasmaOrdered By: Roma Pritchard on 09-23-2021 Folate [Mass/Vol] 17.1 ng/mL >5.9 [facility] Comment on above: Folate reference ran ge: >5.9 ng/ml The WHO technical consultation on folate and vitamin b12 deficiencies has determined that folate concentrations less than 4 ng/ml are considered deficient. Globulin Calc (S) [Mass/Vol] Ordered By: Roma Pritchard on 09-23-2021 Globulin (S) [Mass/Vol] 2.3 g/dL [facility] Glucose mean value [Mass/vol ume] in Blood Estimated from glycated hemoglobinOrdered By: Roma Pritchard on 09-23-2021 Average glucose Estimated from glycated hemoglobin (Bld) [Mass/Vol] 120 mg/dL [facility] Hematocrit Auto (Bld) [Volum e fraction]Ordered By: Roma Pritchard on 09-23-2021 Hematocrit (Bld) [Volume fraction] 40.6 % 34.0-46.4 [facility] Hemoglobin A1c percentageOrd ered By: Roma Pritchard on 09-23-2021 HbA1c (Bld) [Mass fraction] 5.8 % 4.3-5.6 [facility] Comment on above: Increased risk for d iabetes: 5.7 - 6.4 diabetes: >6.4 glycemic control for adults with diabetes: <7.0 Iron [Mass/volume] in Serum or PlasmaOrdered By: Roma Pritchard on 09-23-2021 Iron [Mass/Vol] 98 ug/dL 40-150 [facility] Iron binding capacity [Mass/ volume] in Serum or PlasmaOrdered By: Roma Pritchard on 09-23-2021 Iron binding capacity [Mass/Vol] 406 ug/dL 255-450 [facility] Iron saturation [Mass Fracti on] in Serum or PlasmaOrdered By: Roma Pritchard on 09-23-2021 Iron saturation [Mass fraction] 24.0 % 20-50 [facility] Ketones Auto test strip (U) [Mass/Vol]Ordered By: Roma Pritchard on 09-23-2021 Ketones (U) [Mass/Vol] Negative Negative [facility] Laboratory - Chemistry and C hemistry - challengeOrdered By: Roma Pritchard on 09-23-2021 Cobalamin (Vitamin B12) [Mass/Vol] 648 pg/mL 180-914 [facility] - Hematology and Cell countsOrdered By: Roma Pritchard on 09-23-2021 Nucleated RBC/100 WBC (Bld) [Ratio] 0.1 % 0-0.5 [facility] - UrinalysisOrder ed By: Roma Pritchard on 09-23-2021 Hyaline casts LM Ql (Urine sed) 0-8 [LPF] 0-8 [facility] Lymphocytes Auto (Bld) [#/Vo l]Ordered By: Roma Pritchard on 09-23-2021 Lymphocytes (Bld) [#/Vol] 1.6 10*3/uL 1.00-4.8 [facility] Lymphocytes/100 WBC Auto (Bl d)Ordered By: Roma Pritchard on 09-23-2021 Lymphocytes/100 WBC (Bld) 27.3 % . [facility] MCH Auto (RBC) [Entitic mass ]Ordered By: Roma Pritchard on 09-23-2021 MCH (RBC) [Entitic mass] 31.0 pg 24.7-34.3 [facility] MCHC Auto (RBC) [Mass/Vol]Or dered By: Roma Pritchard on 09-23-2021 MCHC (RBC) [Mass/Vol] 33.3 g/dL 32.0-35.0 [facility] MCV Auto (RBC) [Entitic vol] Ordered By: Roma Pritchard on 09-23-2021 MCV (RBC) [Entitic vol] 93.1 fL 80-100 [facility] Monocytes Auto (Bld) [#/Vol] Ordered By: Roma Pritchard on 09-23-2021 Monocytes (Bld) [#/Vol] 0.5 10*3/uL 0.0-0.8 [facility] Monocytes/100 WBC Auto (Bld) Ordered By: Roma Pritchard on 09-23-2021 Monocytes/100 WBC (Bld) 8.6 % . [facility] Neutrophils Auto (Bld) [#/Vo l]Ordered By: Roma Pritchard on 09-23-2021 Neutrophils (Bld) [#/Vol] 3.6 10*3/uL 1.8-7.7 [facility] Neutrophils/100 WBC Auto (Bl d)Ordered By: Roma Pritchard on 09-23-2021 Neutrophils/100 WBC (Bld) 60.9 % . [facility] No Panel InformationOrdered By: Roma Pritchard on 09-23-2021 25-Hydroxy Vitamin D Total 41.0 ng/mL 30-100 [facility] Comment on above: VITAMIN D STATUS 25( OH)VITAMIN D RANGE (ng/mL) Deficient <20 Insufficient 20 to <30 Sufficient 30 to 100 Reference: Bro MF,Salo NC, Iqra PAGE, et al. Evaluation,treatment, and prevention of vitamin D deficiency; an Endocrine Society clinical practice guideline. JCEM. 2010; 96(7):1911-30. Estimated GFR () > 60 mL/Min [facility] Comment on above: GFR estimated refere nce range: According to KDOQI guidelines, <60 ml/min/1.73m2 is sufficient to diagnose a patient with chronic kidney disease. Pharmacy Creatinine Clearance (Chem N/A [facility] Platelet mean volume Auto (B ld) [Entitic vol]Ordered By: Roma Pritchard on 09-23-2021 Platelet mean volume (Bld) [Entitic vol] 10.0 fL 6.3-10.7 [facility] Platelets Auto (Bld) [#/Vol] Ordered By: Roma Pritchard on 09-23-2021 Platelets (Bld) [#/Vol] 213 10*3/uL 150-450 [facility] Protein Auto test strip (U) [Mass/Vol]Ordered By: Roma Pritchard on 09-23-2021 Protein (U) [Mass/Vol] Negative Negative [facility] Protein [Mass/volume] in Ser um or PlasmaOrdered By: Roma Pritchard on 09-23-2021 Protein [Mass/Vol] 6.2 g/dL 6.1-7.9 [facility] RBC Auto (Bld) [#/Vol]Ordere d By: Roma Pritchard on 09-23-2021 RBC (Bld) [#/Vol] 4.36 10*6/uL 3.60-5.00 [facility] Serum or plasma alanine hoff otransferase measurement without P-5'-P (enzymatic activiOrdered By: Roma Pritchard on 09-23-2021 ALT No additional P-5'-P [Catalytic activity/Vol] 49 U/L 10-60 [facility] Serum or plasma albumin/glob ulin mass ratioOrdered By: Roma Pritchard on 09-23-2021 Albumin/Globulin [Mass ratio] 1.7 {ratio} [facility] Serum or plasma alkaline apollo sphatase measurement (enzymatic activity/volume)Ordered By: Roma Pritchard on 09-23-2021 ALP [Catalytic activity/Vol] 69 U/L 32-92 [facility] Serum or plasma aspartate am inotransferase measurement (enzymatic activity/volume)Ordered By: Roma Pritchard on 09-23-2021 AST [Catalytic activity/Vol] 29 U/L 10-42 [facility] Serum or plasma calcium carrie urement (mass/volume)Ordered By: Roma Pritchard on 09-23-2021 Calcium [Mass/Vol] 9.9 mg/dL 8.2-10.2 [facility] Serum or plasma chloride ritu surement (moles/volume)Ordered By: Roma Pritchard on 09-23-2021 Chloride [Moles/Vol] 102 mmol/L 95-114 [facility] Serum or plasma glucose carrie urement (mass/volume)Ordered By: Roma Pritchard on 09-23-2021 Glucose [Mass/Vol] 117 mg/dL 70-100 [facility] Comment on above: ADA recommended refe rence range Random Glucose Reference Range is dependent on time and content of last meal. Glucose of more than 200 mg/dL in a nonstressed, ambulatory subject supports the diagnosis of Diabetes Mellitus. Serum or plasma high density lipoprotein (HDL) cholesterol measurementOrdered By: Roma Pritchard on 09-23-2021 Cholesterol in HDL [Mass/Vol] 55 mg/dL 35-85 [facility] Comment on above: HDL CHOL ATP-III CLA SSIFICATION Cardiovascular Risk HDL > or equal to 60 mg/dL LOW HDL < 40 mg/dL HIGH Serum or plasma potassium me asurement (moles/volume)Ordered By: Roma Pritchard on 09-23-2021 Potassium [Moles/Vol] 4.0 mmol/L 3.5-5.1 [facility] Serum or plasma sodium measu rement (moles/volume)Ordered By: Roma Pritchard on 09-23-2021 Sodium [Moles/Vol] 140 mmol/L 136-146 [facility] Serum or plasma total biliru bin measurement (mass/volume)Ordered By: Roma Pritchard on 09-23-2021 Bilirubin [Mass/Vol] 0.5 mg/dL 0.3-1.2 [facility] Serum or plasma total carbon dioxide measurement (moles/volume)Ordered By: Roma Pritchard on 09-23-2021 CO2 [Moles/Vol] 25.2 mmol/L 22.0-30.0 [facility] Serum or plasma total choles terol/high density lipoprotein (HDL) cholesterol mass ratOrdered By: Roma Pritchard on 09-23-2021 Cholesterol.total/Cho lesterol in HDL [Mass ratio] 2.9 {ratio} <5.0 [facility] Serum or plasma urea nitroge n measurement (mass/volume)Ordered By: Roma Pritchard on 09-23-2021 Urea nitrogen [Mass/Vol] 14 mg/dL 9-23 [facility] Squamous epithelial cells de tection in urine sediment by light microscopyOrdered By: Roma Pritchard on 09-23-2021 Epithelial cells.squamous LM Ql (Urine sed) 3-4 [HPF] 0-2 [facility] Triglyceride [Mass/volume] i n Serum or PlasmaOrdered By: Roma Pritchard on 09-23-2021 Triglyceride [Mass/Vol] 196 mg/dL 35-149 [facility] Comment on above: TRIG ATP III CLASSIF ICATION TRIG less than 150 mg/dL Normal TRIG 150-199 mg/dL Borderline high TRIG 200-500 mg/dL High TRIG greater than 500 mg/dL Very high Standard traceable to the Center for Disease Conrtrol and Prevention (CDC) test method. Urine appearanceOrdered By: Roma Pritchard on 09-23-2021 Appearance (U) Cloudy Clear [facility] Urine bacteria detection by automated methodOrdered By: Roma Pritchard on 09-23-2021 Bacteria Auto Ql (U) 1+ None Seen [facility] Urine colorOrdered By: Roma Pritchard on 09-23-2021 Color (U) Yellow Yellow [facility] Urine glucose measurement by automated test strip (mass/volume)Ordered By: Roma Pritchard on 09-23-2021 Glucose Auto test strip (U) [Mass/Vol] Normal mg/dL Normal [facility] Urine hemoglobin detection b y automated test stripOrdered By: Roma Pritchard on 09-23-2021 Hemoglobin Auto test strip Ql (U) 1+ Negative [facility] Urine leukocyte esterase det ection by automated test stripOrdered By: Roma Pritchard on 09-23-2021 Leukocyte esterase Auto test strip Ql (U) 2+ Negative [facility] Urine nitrite detection by a utomated test stripOrdered By: Roma Pritchard on 09-23-2021 Nitrite Auto test strip Ql (U) Negative Negative [facility] Urine sediment crystal ident ification by light microscopyOrdered By: Roma Pritchard on 09-23-2021 Crystals LM Nom (Urine sed) None seen [HPF] [facility] Urobilinogen Auto test strip (U) [Mass/Vol]Ordered By: Roma Pritchard on 09-23-2021 Urobilinogen (U) [Mass/Vol] Normal mg/dL Normal [facility] pH Auto test strip (U)Ordere d By: Roma Pritchard on 09-23-2021 pH (U) 1.030 [pH] 1.001-1.03 0 [facility] pH (U) 5.5 [pH] 5.0-9.0 [facility] XR abdomen min 2Von 01-08-20 21 XR abdomen min 2V [facility] Other XR abdomen min 2V [facility] [facility] Other XR abdomen min 2V [address] [place] [address] [facility] Other XR abdomen [place] 2[place] [address] [employer] [facility] Other XR abdomen min 2V XRay Report [employer] Other XR abdomen min 2V Signed [employer] Other XR abdomen min 2V Patient: William Gonsales MR#: [id number] [employer] Other XR abdomen min 2V [id number] [employer] Other XR abdomen min 2V : 1955 Acct:[id number] [employer] Other XR abdomen min 2V Age/Sex: 65 / F ADM Date: 01/07/21 [employer] Other XR abdomen min 2V Loc: XD Room: Type: [facility] [employer] Other XR abdomen min 2V Attending Dr: Roma Pritchard DO [employer] Other XR abdomen min 2V Ordering Provider: Carl Pritchard DO [employer] Other XR abdomen min 2V Date of Service: 01/07/21 [employer] Other XR abdomen min 2V [id number]) XR/XR abdomen min 2V: K59.00 [employer] Other XR abdomen min 2V Copies to: Roma Pritchard, [employer] Other XR abdomen min 2V 2 views of abdomen [employer] Other XR abdomen min 2V COMPARISON: 12/27/20 [employer] Other XR abdomen min 2V HISTORY: Increased stool. [employer] Other XR abdomen min 2V Nondistended air-cailin led small bowel loops identified. [employer] Other XR abdomen min 2V Reduction of stool identified. [employer] Other XR abdomen min 2V No abdominal calcifi cation identified. [employer] Other XR abdomen min 2V No soft tissue mass seen. [employer] Other XR abdomen min 2V Advanced lower lumba r spondylosis present. To moderate bilateral hip degeneration. [employer] Other XR abdomen min 2V X R/XR abdomen min 2V [employer] Other XR abdomen min 2V IMPRESSION: No visib le nephrolithiasis. Reduction of stool. [employer] Other XR abdomen min 2V Impression dictated by: Jeevan Johnson M.D.01/07/2021 3:34 PM [employer] Other XR abdomen min 2V Dictation Location: RADIO-PC-11 [employer] Other XR abdomen min 2V Transcribed By: PWS 01/07/21 [facility] [employer] Other XR abdomen min 2V Dictated By: Valdez Johnson DO 01/07/21 [facility] [employer] Other XR abdomen min 2V Signed By: [employer] Other XR abdomen min 2V 01/07/[address] [place] [address] [employer] Other Urinalysison 12-18-2020 Appearance (U) Clear Clear [employer] Other Color (U) Yellow Yellow [employer] Other Glucose Ql (U) Normal Normal [employer] Other Ketones Ql (U) Negative Negative [employer] Other Leukocyte esterase Test strip Ql (U) Negative Negative [employer] Other pH (U) 5.5 [pH] 5.0-9.0 [employer] Other Urinalysis 1.007 1.001-1.03 0 [employer] Other Urinalysis Normal Normal [employer] Other Urine 10 SGon 12-18-2020 Albumin DL <= 20 mg/L (U) [Mass/Vol] Negative [employer] Other pH (U) 5.0 [pH] [employer] Other Urine 10 SG Negative Negative [employer] Other Urine 10 SG 1.010 [employer] Other Urine 10 SG 0.2 [employer] Other Dermatopathologyon Dermatopathology [facility] [address] [place] [id number] DERMATOPATHOLOGY REPORT Name:TEAGAN GONSALES Rec #. [id number] Location: [facility] Date of Procedure: 05/01/2020 Race: PT DECLINED Date Received: 05/03/2020 /Sex: 1955 (Age: 64) / F Date Reported: 05/04/2020 Other: Submitting Physician:LULA CARCAMO APRN, [employer]ORTER-C FINAL DIAGNOSIS SKIN, R MU-ISM, BIOPSY: INTERFACE DERMATITIS WITH BASAL LAYER KERATINOCYTE [...] M.D. Electronically Signed Out By INO FIGUEROA MD/[facility] By the signature on this report, the individual or group listed as making the Final Interpretation/Diagnosis certifies that they have reviewed this case. Clinical History: 2.1 x 1.9 cm. ISK vs Lupus vs other. Biopsy. Specimens Submitted As: A: SKIN, R MU-ISM Gross Description: Received in formalin is a salas piece of skin measuring [id number]. The specimen is inked and embedded in toto. dcp/05/03/[address] [facility] Comment on above: Performed By: #### D #### Dermatopathology [facility] 08-02-2018 [facility] Letter Text Normal [facility] Vital Signs Date Time Vital Sign Value Performing Clinician Facility 04-02-2023 08:10-0500 Body height 157.48 cm Roma Pritchard Other [employer] Other 04-02-2023 08:10-0500 Body mass index (BMI) [Ratio] 26.34 kg/m2 Roma Pritchard Other [employer] Other 04-02-2023 08:10-0500 Body temperature 98.8 [degF] Roma Pritchard Other [employer] Other 04-02-2023 08:10-0500 Body weight 65.32 kg Roma Pritchard Other [employer] Other 04-02-2023 08:10-0500 Diastolic blood pressure 80 mm[Hg] Roma Ermaacrmen Other [employer] Other 04-02-2023 08:10-0500 Respiratory rate 16 /min Roma Pritchard Other [employer] Other 04-02-2023 08:10-0500 SaO2% (BldA) [Mass fraction] 95 % Roma Pritchard Other [employer] Other 04-02-2023 08:10-0500 Systolic blood pressure 128 mm[Hg] Roma Ermacarmen Other [employer] Other 03-09-2023 11:00-0500 Body height 157.48 cm Tanna Wilson Other [employer] Other 03-09-2023 11:00-0500 Body mass index (BMI) [Ratio] 26.52 kg/m2 Tanna Wilson Other [employer] Other 03-09-2023 11:00-0500 Body weight 65.77 kg Tnana Wilson Other [employer] Other 03-09-2023 11:00-0500 Diastolic blood pressure 89 mm[Hg] Tanna Wilson Other [employer] Other 03-09-2023 11:00-0500 SaO2% (BldA) [Mass fraction] 97 % Tanna Wilson Other [employer] Other 03-09-2023 11:00-0500 Systolic blood pressure 149 mm[Hg] Tanna Wilson Other [employer] Other 03-03-2023 08:15-0500 Body height 157.48 cm Colby Shaffer Other [employer] Other 03-03-2023 08:15-0500 Body mass index (BMI) [Ratio] 26.34 kg/m2 Colby Shaffer Other [employer] Other 03-03-2023 08:15-0500 Body weight 65.32 kg Colby Shaffer Other [employer] Other 01-06-2023 08:15-0500 Blood Pressure Location MARIANA DUONG [facility] 01-06-2023 08:15-0500 Diastolic blood pressure 79 mm[Hg] MARIANA AD [facility] 01-06-2023 08:15-0500 Heart rate 75 /min MARIANA AD [facility] 01-06-2023 08:15-0500 Respiratory rate 16 /min MARIANA YUNRY [facility] 01-06-2023 08:15-0500 Systolic blood pressure 127 mm[Hg] MARIANA DUONG [facility] 12-31-2022 10:30-0500 Body height 157.48 cm Roma Pritchard Other [employer] [facility] Other 11-04-2022 12:20-0400 Diastolic blood pressure 77 mm[Hg] DO Roma Pritchard Work Phone: [facility] 11-04-2022 12:20-0400 Heart rate 74 /min DO Roma Pritchard Work Phone: [facility] 11-04-2022 12:20-0400 Respiratory rate 16 /min DO Roma Pritchard Work Phone: [facility] 11-04-2022 12:20-0400 SaO2% (BldA) [Mass fraction] 98 % DO Roma Pritchard Work Phone: [facility] 11-04-2022 12:20-0400 Systolic blood pressure 122 mm[Hg] DO Roma Pritchard Work Phone: [facility] 11-04-2022 10:51-0400 Body temperature 97.4 [degF] DO Roma Pritchard Work Phone: [facility] 11-04-2022 10:11-0400 Inhaled oxygen flow rate 3 L/min DO Roma Pritchard Work Phone: [facility] 11-04-2022 07:41-0400 Body height 160.02 cm DO Roma Pritchard Work Phone: [facility] 11-04-2022 07:41-0400 Body mass index (BMI) [Ratio] 24.5 kg/m2 DO Roma Pritchard Work Phone: [facility] 11-04-2022 07:41-0400 Body weight 63 kg DO Roma Pritchard Work Phone: [facility] 10-23-2022 09:30-0400 Body height 157.48 cm Ar Saluda II Other [employer] Other 10-23-2022 09:30-0400 Body mass index (BMI) [Ratio] 25.6 kg/m2 Ar Saluda II Other [employer] Other 10-23-2022 09:30-0400 Body weight 63.5 kg Ar Saluda II Other [employer] Other 06-26-2022 10:10-0400 Body height 157.48 cm Roma Pritchard Other [employer] Other 06-26-2022 10:10-0400 Body mass index (BMI) [Ratio] 25.79 kg/m2 Roma Pritchard Other [employer] Other 06-26-2022 10:10-0400 Body weight 63.96 kg Roma Pritchard Other [employer] Other 06-26-2022 10:10-0400 Diastolic blood pressure 82 mm[Hg] Roma Pritchard Other [employer] Other 06-26-2022 10:10-0400 Systolic blood pressure 125 mm[Hg] Roma Pritchard Other [employer] Other 04-02-2022 10:10-0500 Body height 157.48 cm Roma Pritchard Other [employer] Other 04-02-2022 10:10-0500 Body mass index (BMI) [Ratio] 26.98 kg/m2 Roma Pritchard Other [employer] Other 04-02-2022 10:10-0500 Body temperature 96.7 [degF] Roma Pritchard Other [employer] Other 04-02-2022 10:10-0500 Body weight 66.91 kg Roma Pritchard Other [employer] Other 04-02-2022 10:10-0500 Diastolic blood pressure 86 mm[Hg] Roma Pritchard Other [employer] Other 04-02-2022 10:10-0500 Respiratory rate 18 /min Roma Pritchard Other [employer] Other 04-02-2022 10:10-0500 SaO2% (BldA) [Mass fraction] 97 % Roma Pritchard Other [employer] Other 04-02-2022 10:10-0500 Systolic blood pressure 132 mm[Hg] Roma Pritchard Other [employer] Other 03-05-2022 10:00-0500 Body height 157.48 cm Ar Jacksonle II Other [employer] Other 03-05-2022 10:00-0500 Body mass index (BMI) [Ratio] 26.88 kg/m2 Ar Saluda II Other [employer] Other 03-05-2022 10:00-0500 Body weight 66.68 kg Ar Saluda II Other [employer] Other 02-25-2022 11:15-0500 Body height 157.48 cm Tanna Wilson Other [employer] Other 02-25-2022 11:15-0500 Body mass index (BMI) [Ratio] 26.88 kg/m2 Tanna Wilson Other [employer] Other 02-25-2022 11:15-0500 Body temperature 96.8 [degF] Tanna Wilson Other [employer] Other 02-25-2022 11:15-0500 Body weight 66.68 kg Tanna Wilson Other [employer] Other 02-25-2022 11:15-0500 Diastolic blood pressure 83 mm[Hg] Tanna Wilson Other [employer] Other 02-25-2022 11:15-0500 SaO2% (BldA) [Mass fraction] 96 % Tanna Wilson Other [employer] Other 02-25-2022 11:15-0500 Systolic blood pressure 147 mm[Hg] Tanna Wilson Other [employer] Other 12-31-2021 10:10-0500 Body height 157.48 cm Roma Pritchard Other [employer] Other 10-02-2021 09:10-0400 Body height 157.48 cm Roma Pritchard Other [employer] Other 10-02-2021 09:10-0400 Body mass index (BMI) [Ratio] 27.36 kg/m2 Roma Pritchard Other [employer] Other 10-02-2021 09:10-0400 Body weight 67.86 kg Roma Pritchard Other [employer] Other 10-02-2021 09:10-0400 Diastolic blood pressure 86 mm[Hg] Roma Pritchard Other [employer] Other 10-02-2021 09:10-0400 Systolic blood pressure 123 mm[Hg] Roma Pritchard Other [employer] Other 06-26-2021 09:50-0400 Body height 157.48 cm Roma Pritchard Other [employer] Other 05-07-2021 09:30-0400 Body height 157.48 cm Tanna Wilson Other [employer] Other 05-07-2021 09:30-0400 Body mass index (BMI) [Ratio] 28.44 kg/m2 Tanna Wilson Other [employer] Other 05-07-2021 09:30-0400 Body temperature 97.1 [degF] Tanna Wilson Other [employer] Other 05-07-2021 09:30-0400 Body weight 70.53 kg Tanna Wilson Other [employer] Other 05-07-2021 09:30-0400 Diastolic blood pressure 85 mm[Hg] Tanna Wilson Other [employer] Other 05-07-2021 09:30-0400 SaO2% (BldA) [Mass fraction] 97 % Tanna Wilson Other [employer] Other 05-07-2021 09:30-0400 Systolic blood pressure 128 mm[Hg] Tanna Wilson Other [employer] Other 04-19-2021 11:45-0500 Body height 157.48 cm Megan Asencio Other [employer] Other 04-19-2021 11:45-0500 Body mass index (BMI) [Ratio] 27.62 kg/m2 Megan Asencio Other [employer] Other 04-19-2021 11:45-0500 Body weight 68.49 kg Megan Asencio Other [employer] Other 03-22-2021 09:10-0500 Body height 157.48 cm Roma Pritchard Other [employer] Other 03-22-2021 09:10-0500 Body mass index (BMI) [Ratio] 28.16 kg/m2 Roma Pritchard Other [employer] Other 03-22-2021 09:10-0500 Body temperature 97.6 [degF] Roma Pritchard Other [employer] Other 03-22-2021 09:10-0500 Body weight 69.85 kg Roma Pritchard Other [employer] Other 03-22-2021 09:10-0500 Diastolic blood pressure 78 mm[Hg] Roma Pritchard Other [employer] Other 03-22-2021 09:10-0500 Respiratory rate 16 /min Roma Pritchard Other [employer] Other 03-22-2021 09:10-0500 SaO2% (BldA) [Mass fraction] 99 % Roma Pritchard Other [employer] Other 03-22-2021 09:10-0500 Systolic blood pressure 122 mm[Hg] Roma Pritchard Other [employer] Other 12-18-2020 09:10-0400 Body height 157.48 cm Roma Pritchard Other [employer] Other 12-18-2020 09:10-0400 Body mass index (BMI) [Ratio] 28.16 kg/m2 Roma Pritchard Other [employer] Other 12-18-2020 09:10-0400 Body temperature 97.3 [degF] Roma Pritchard Other [employer] Other 12-18-2020 09:10-0400 Body weight 69.85 kg Roma Pritchard Other [employer] Other 12-18-2020 09:10-0400 Diastolic blood pressure 84 mm[Hg] Roma Pritchard Other [employer] Other 12-18-2020 09:10-0400 Respiratory rate 18 /min Roma Pritchard Other [employer] Other 12-18-2020 09:10-0400 SaO2% (BldA) [Mass fraction] 97 % Roma Pritchard Other [employer] Other 12-18-2020 09:10-0400 Systolic blood pressure 122 mm[Hg] Roma Pritchard Other [employer] Other Encounters Encounter Date Encounter Type Care Provider Facility Start: 01-12-2024 ambulatory MARIANA Kilgore ty:NAS Iyer Start: 04-02-2023 End: 04-02-2023 ambulatory Roma Pritchard Other [employer] Other Start: 04-02-2023 Office outpatient vi sit 25 minutes Roma Pritchard [facility] Start: 03-25-2023 End: 03-25-2023 ambulatory Roma Pritchard Facility:[facility] Start: 03-25-2023 End: 03-25-2023 ambulatory DO Roma Pritchard Work Phone: [facility] Work Phone: Start: 03-25-2023 End: 03-25-2023 Patient encounter procedure DO Roma Pritchard Work Phone: [facility] Work Phone: Start: 03-09-2023 Office outpatient vi sit 15 minutes Tanna Wilson [facility] Start: 03-09-2023 End: 03-09-2023 ambulatory Roma Ermacarmen Facility:[facility] Start: 03-09-2023 End: 03-09-2023 ambulatory DO Roma Pritchard Work Phone: [facility] Work Phone: Start: 03-09-2023 End: 03-09-2023 Patient encounter procedure DO Roma Pritchard Work Phone: [facility]-Sleep Lab Work Phone: Start: 03-09-2023 End: 03-09-2023 Patient encounter procedure DO Roma Pritchard Work Phone: [facility] Work Phone: Start: 03-04-2023 End: 03-04-2023 ambulatory Colby Shaffer Other [employer] Other Start: 03-04-2023 Telephone encounter Colby Shaffer [facility] Start: 03-03-2023 Office outpatient ne w 45 minutes Colby Shaffer [facility] Start: 03-03-2023 End: 03-03-2023 ambulatory DO Roma Ritchiecarmen Work Phone: [facility] Work Phone: Start: 03-03-2023 End: 03-03-2023 Patient encounter procedure DO Roma Francheska Work Phone: [facility] Start: 03-03-2023 End: 03-03-2023 Patient encounter procedure DO Roma Pritchard Work Phone: [facility] Work Phone: Start: 02-26-2023 End: 02-26-2023 ambulatory BLAYNE MORALES Not Available Start: 01-19-2023 End: 01-19-2023 ambulatory Roma Pritchard Facility:[facility] Start: 01-19-2023 End: 01-19-2023 ambulatory DO Roma Pritchard Work Phone: [facility] Work Phone: Start: 01-19-2023 End: 01-19-2023 Patient encounter procedure DO Roma Pritchard Work Phone: [facility] Work Phone: Start: 01-06-2023 End: 01-07-2023 ambulatory MARIANA DUONG Facility:[facility] Start: 01-06-2023 End: 01-06-2023 Patient encounter procedure MARIANA YUNRY [facility] Start: 01-01-2023 End: 01-01-2023 ambulatory Roma Pritchard Other [employer] Other Start: 01-01-2023 Telephone encounter Roma Pritchard [facility] [place] Start: 12-31-2022 End: 12-31-2022 ambulatory Roma Pritchard Other [employer] Other Start: 12-31-2022 Telephone encounter Roma Pritchard [facility] [place] Start: 12-31-2022 End: 12-31-2022 Patient encounter procedure DO Roma Pritchard Work Phone: [facility] [place] Work Phone: Start: 12-26-2022 End: 12-26-2022 ambulatory Roma Pritchard Facility:[facility] Start: 12-26-2022 End: 12-26-2022 ambulatory DO Roma Pritchard Work Phone: [facility] Work Phone: Start: 12-26-2022 End: 12-26-2022 Patient encounter procedure DO Roma Pritchard Work Phone: [facility] [place] Work Phone: Start: 12-17-2022 (Post-Op) Post-Op Ar Saluda II [facility] Start: 12-17-2022 End: 12-17-2022 ambulatory Ar M Virgil II [facility] Other Start: 12-17-2022 End: 12-17-2022 Patient encounter procedure DO Roma Pritchard Work Phone: [facility] Start: 11-19-2022 (Post-Op) Post-Op Ar Virgil II [facility] Start: 11-19-2022 End: 11-19-2022 ambulatory Ar Saluda II Other [employer] Other Start: 11-06-2022 End: 11-06-2022 ambulatory Ar Virgil II Other [employer] Other Start: 11-06-2022 Telephone encounter Ar Saluda II [facility] Start: 11-04-2022 End: 11-04-2022 ambulatory Ar M Virgil II Facility:[facility] Start: 11-04-2022 End: 11-04-2022 Admission to same day surgery center DO Roma Pritchard Work Phone: [facility] [place] Start: 10-29-2022 End: 10-29-2022 ambulatory Ar Saluda II Other [employer] Other Start: 10-29-2022 Telephone encounter Ar Saluda II [facility] Start: 10-24-2022 (Prolonged) Prolonge d Services Ar Herman II [facility] Start: 10-24-2022 End: 10-24-2022 ambulatory Ar Virgil II Other [employer] Other Start: 10-23-2022 Patient encounter procedure Ar Garciakirill [facility] Start: 10-23-2022 End: 10-23-2022 ambulatory Ar Venegas Saluda II Facility:[facility] Start: 10-23-2022 End: 10-23-2022 ambulatory DO Roma Pritchard Work Phone: [facility] Work Phone: Start: 10-23-2022 End: 10-23-2022 Discharged Recurring DO Roma Ritchiecarmen Work Phone: [facility]-Physical Therapy [place] Start: 10-17-2022 End: 10-17-2022 ambulatory Roma Pritchard Facility:[facility] Start: 10-17-2022 End: 10-17-2022 ambulatory DO Roma Ritchiecarmen Work Phone: [facility] Work Phone: Start: 10-17-2022 End: 10-17-2022 Patient encounter procedure DO Roma Pritchard Work Phone: [facility]-Pre-Surgical Testing Work Phone: Start: 09-30-2022 End: 09-30-2022 ambulatory Roma Pritchard Other [employer] Other Start: 09-30-2022 Telephone encounter Roma Pritchard [facility] [place] Start: 09-19-2022 End: 09-19-2022 ambulatory Roma Pritchard Other [employer] Other Start: 09-19-2022 Telephone encounter Roma Pritchard [facility] Start: 09-18-2022 End: 09-18-2022 ambulatory Ar Herman II Other [employer] Other Start: 09-18-2022 Telephone encounter Ar Herman II [facility] Start: 09-15-2022 End: 09-15-2022 ambulatory Roma Pritchard Facility:[facility] Start: 09-15-2022 End: 09-15-2022 Patient encounter procedure DO Roma Pritchard Work Phone: [facility] [place] Work Phone: Start: 09-10-2022 End: 09-10-2022 ambulatory Roma Pritchard Other [employer] Other Start: 09-10-2022 Telephone encounter Roma Pritchard [facility] [place] Start: 06-26-2022 End: 06-26-2022 ambulatory Roma Pritchard Other [employer] Other Start: 06-26-2022 Telephone encounter Roma Pritchard [facility] [place] Start: 06-12-2022 End: 06-12-2022 ambulatory Roma Pritchard Other [employer] Other Start: 06-12-2022 Telephone encounter Roma Pritchard [facility] [place] Start: 04-15-2022 End: 04-15-2022 ambulatory Roma Pritchard Other [employer] Other Start: 04-15-2022 Telephone encounter Roma Pritchard [facility] [place] Start: 04-11-2022 End: 04-12-[address] ROMA PRITCHARD Facility:[facility] Start: 04-09-2022 End: 05-02-[address] ORMA PRITCHARD Facility:[facility] Start: 04-07-2022 End: 04-07-2022 ambulatory Roma Prtichard Other [employer] Other Start: 04-07-2022 Telephone encounter Roma Pritchard [facility] [place] Start: 04-04-2022 End: 04-05-[address] ROMA PRITCHARD Facility: Start: 04-02-2022 End: 04-02-2022 ambulatory Roma Pritchard Other [employer] Other Start: 04-02-2022 Office outpatient vi sit 25 minutes Roma Pritchard [facility] [place] Start: 03-28-2022 End: 03-28-2022 ambulatory DO Roma Pritchard Work Phone: [facility] Work Phone: Start: 03-28-2022 End: 03-28-2022 Patient encounter procedure DO Roma Pritchard Work Phone: [facility] [place] Work Phone: Start: 03-17-2022 End: 03-17-2022 ambulatory Roma Pritchard Other [employer] Other Start: 03-17-2022 Telephone encounter Roma Pritchard [facility] Start: 03-13-2022 End: 03-13-2022 ambulatory Roma Pritchard Other [employer] Other Start: 03-13-2022 Telephone encounter Roma Pritchard [facility] Start: 03-05-2022 [facility] visit new patient Ar Jackson mariano [facility] Start: 03-05-2022 End: 03-05-2022 ambulatory DO Roma Pritchard Work Phone: [facility] Work Phone: Start: 03-05-2022 End: 03-05-2022 Patient encounter procedure DO Roma Pritchard Work Phone: [facility] Start: 02-25-2022 Office outpatient vi sit 15 minutes Tanna Wilson [facility] Start: 02-25-2022 End: 02-25-2022 ambulatory DO Roma Pritchard Work Phone: [facility] Work Phone: Start: 02-25-2022 End: 02-25-2022 Patient encounter procedure DO Roma Pritchard Work Phone: [facility]-Sleep Lab Work Phone: Start: 01-21-2022 End: 01-21-2022 ambulatory Roma Pritchard Other [employer] Other Start: 01-21-2022 Telephone encounter Roma Pritchard [facility] [place] Start: 01-17-2022 End: 01-17-2022 Patient encounter procedure DO Roma Pritchard Work Phone: [facility] Work Phone: Start: 01-13-2022 End: 01-13-2022 ambulatory Roma Pritchard Other [employer] Other Start: 01-13-2022 Telephone encounter Roma Pritchard [facility] [place] Start: 01-11-2022 End: 01-11-2022 ambulatory DO Roma Pritchard Work Phone: [facility] Work Phone: Start: 01-11-2022 End: 01-11-2022 Patient encounter procedure DO Roma Pritchard Work Phone: [facility]-CT Scan [facility] [place] Start: 01-08-2022 End: 01-08-2022 ambulatory Roma Pritchard Other [employer] Other Start: 01-08-2022 Telephone encounter Roma Pritchard [facility] [place] Start: 12-31-2021 End: 12-31-2021 ambulatory Roma Pritchard Other [employer] Other Start: 12-31-2021 Telephone encounter Roma Pritchard [facility] [place] Start: 12-30-2021 End: 12-31-[address] ROMA BOUDREAUX Facility: Start: 12-04-2021 End: 12-04-2021 ambulatory Roma Pritchard Other [employer] Other Start: 12-04-2021 Telephone encounter Roma Pritchard [facility] [place] Start: 10-29-2021 End: 11-20-[address] ROMA PRITCHARD Facility:[facility] Start: 10-21-2021 End: 10-21-2021 ambulatory Roma Pritchard Other [employer] Other Start: 10-21-2021 Telephone encounter Roma Pritchard [facility] [place] Start: 10-17-2021 End: 10-18-[address] ROMA PRITCHARD Facility:[facility] Start: 10-11-2021 End: 10-11-2021 ambulatory Roma Pritchard Other [employer] Other Start: 10-11-2021 Telephone encounter Roma Pritchard [facility] [place] Start: 10-02-2021 End: 10-02-2021 ambulatory Roma Pritchard Other [employer] Other Start: 10-02-2021 Telephone encounter Roma Pritchard [facility] [place] Start: 09-23-2021 End: 09-23-2021 Patient encounter procedure DO Roma Pritchard Work Phone: [facility] [place] Start: 09-19-2021 End: 09-20-[address] ROMA PRITCHARD Facility:[facility] Start: 08-29-2021 End: 08-30-[address] ROMA PRITCHARD Facility:[facility] Start: 08-12-2021 End: 08-12-2021 ambulatory Roma Pritchard Other [employer] Other Start: 08-12-2021 Telephone encounter Roma Pritchard [facility] [place] Start: 08-08-2021 End: 08-09-[address] ROMA PRITCHARD [facility] [employer] Other Start: 08-08-2021 Telephone encounter Roma Pritchard [facility] [place] Start: 08-02-2021 End: 08-02-2021 ambulatory Roma Pritchard Other [employer] Other Start: 08-02-2021 Telephone encounter Roma Pritchard [facility] [place] Start: 06-26-2021 End: 06-26-2021 ambulatory Roma Pritchard Other [employer] Other Start: 06-26-2021 Telephone encounter Roma Pritchard [facility] [place] Start: 06-18-2021 End: 06-18-2021 ambulatory Roma Pritchard Other [employer] Other Start: 06-18-2021 Telephone encounter Roma Pritchard [facility] [place] Start: 05-07-2021 End: 05-07-2021 ambulatory Tanna Wilson Other [employer] Other Start: 05-07-2021 Office outpatient vi sit 15 minutes Tanna Wilson [facility] Start: 04-24-2021 End: 04-24-2021 ambulatory Roma Pritchard Other [employer] Other Start: 04-24-2021 Telephone encounter Roma Pritchard [facility] [place] Start: 04-19-2021 End: 04-19-2021 ambulatory Megan Asencio Other [employer] Other Start: 04-19-2021 Office outpatient vi sit 15 minutes Megan Asencio [facility] Start: 03-22-2021 End: 03-22-2021 ambulatory Roma Pritchard Other [employer] Other Start: 03-22-2021 Office outpatient vi sit 25 minutes Roma Pritchard [facility] [place] Start: 12-28-2020 End: 12-28-2020 ambulatory Roma Pritchard Other [employer] Other Start: 12-28-2020 Telephone encounter Roma Pritchard [facility] Start: 12-21-2020 Telephone encounter Roma Pritchard [facility] Start: 12-18-2020 Office outpatient vi sit 25 minutes Roma Pritchard [facility] Procedures Date Procedure Procedure Detail Performing [...] Work Phone: Start: 10-17-2022 Antibody screen Roma hidalgo Comment on above: Order Comment: Date of Surgery: [id number] Result Comment: PERF ORMED BY: [address] [place] [address] PATHOLOGIST BRICK VENEER MAKER CIRA GRAHAM M.D. Start: 03-28-2022 Urine culture [...] Date Care Activity Detail Author Start: 03-25-2023 [facility] Start: 11-04-2022 End: 11-04-2022 [facility] Start: 10-17-2022 [facility] Start: 03-28-2022 [facility] Bacteria identified in Urine by Culture [facility] Glucose measurement estimated from glycated hemoglobin [facility] Glucose measurement estimated from glycated hemoglobin [facility] Hemoglobin A1c/Hemog lobin.total in Blood [facility] Immunizations Immunization Date Immunization Notes Care Provider Ricardo bauer 12-23-2022 influenza virus vaccine, unspecified formulation MARIANA DUONG [facility] [place] 12-04-2022 Flu Shot - Documentation Purposes Only Roma Pritchard Other [facility] Other 06-13-2022 Prevnar 20 Roma Pritchard Other [facility] Other 11-23-2021 COVID-19 mRNA Bivale nt Booster (Pfizer) DO Roma Pritchard Work Phone: [facility] 11-20-2021 influenza, seasonal, injectable Roma Ritchiecarmen Other [facility] Other 11-20-2021 influenza virus vaccine, unspecified formulation MARIANA DUONG [facility] [place] 12-12-2020 COVID-19 Vaccine Pfi zer - Documentation Purposes Only Roma Pritchard Other [facility] 12-04-2020 influenza, seasonal, injectable Roma Ritchiecarmen Other [facility] Other 11-07-2020 influenza virus vaccine, unspecified formulation MARIANA DUONG [facility] 07-11-2020 Kenalog -40 mg Roma Pritchard Other [employer] Other 05-22-2020 COVID-19 Vaccine Pfi zer - Documentation Purposes Only Roma Pritchard Other [facility] 05-16-2020 COVID-19 Vaccine Pfi zer - Documentation Purposes Only Roma Pritchard Other [facility] 05-12-2020 COVID-19 mRNA, Comirnaty (Pfizer) DO Roma Pritchard Work Phone: [facility] 05-01-2020 COVID-19 Vaccine Pfi zer - Documentation Purposes Only Roma Pritchard Other [facility] 04-25-2020 SARS-CoV-2 (COVID-19 ) mRNA BNT-162b2 vax MARIANA DUONG [facility] 12-09-2019 influenza, seasonal, injectable Roma Pritchard Other [employer] Other 12-09-2019 influenza virus vaccine, unspecified formulation MARIANA AD [facility] 11-24-2019 influenza virus vaccine, unspecified formulation MARIANA AD [facility] 01-12-2019 Kenalog -40 mg Roma Pritchard Other [employer] Other 12-31-2017 zoster vaccine recombinant Roma Pritchard Other [facility] 10-31-2017 zoster vaccine recombinant Roma Pritchard Other [facility] 10-31-2017 tetanus toxoid, redu cuba diphtheria toxoid, and acellular pertussis vaccine, adsorbed Roma Pritchard Other [facility] 11-27-2016 zoster vaccine, live Roma hidalgo Other [facility] 11-21-2016 tetanus toxoid, redu cuba diphtheria toxoid, and acellular pertussis vaccine, adsorbed Roma Pritchard Other [facility] Payers Date Payer Category Payer Self-pay [id number] 1958 [facility] [id number] 1958 Medicare [id number] 2.1 [id number] 1955 Unknown [id number] 2.16.84 0.1.526581.3.579.2.593 1955 Unknown [id number] 2.16.84 0.1.784063.3.579.2.593 1956 Unknown [id number] 2.16.84 0.1.140493.3.579.2.593 1956 Unknown [id number] 2.16.84 0.1.947807.3.579.2.593 1956 Unknown [id number] 2.16.84 0.1.755376.3.579.2.593 1956 Unknown [id number] 2.16.84 0.1.615442.3.579.2.593 1956 Unknown [id number] 2.16.84 0.1.270675.3.579.2.593 1956 Unknown [id number] 2.16.84 0.1.032155.3.579.2.593 1956 Unknown [id number] 2.16.84 0.1.645696.3.579.2.593 1956 Unknown [id number] 2.16.840 .1.887007.3.579.2.1259 1956 Unknown [id number] 2.16.8 40.1.826618.3.579.2.727 1956 Unknown [id number] 2.16.8 40.1.396557.3.579.2.727 Unknown [id number] 2.16.8 40.1.282184.3.579.2.531 Unknown [id number] 2.16.8 40.1.743981.3.579.2.531 Unknown [id number] 2.16.8 40.1.076778.3.579.2.531 Unknown [id number] 2.16.8 40.1.170634.3.579.2.531 Unknown [id number] 2.16.8 40.1.008801.3.579.2.531 Unknown [id number] 2.16.8 40.1.902097.3.579.2.531 Unknown [id number] 2.16.8 40.1.022302.3.579.2.531 Unknown [id number] 2.16.8 40.1.064758.3.579.2.531 Unknown [id number] 2.16.8 40.1.453812.3.579.2.531 Unknown [id number] 2.16.8 40.1.274793.3.579.2.531 Social History Date Type Detail Facility Unknown if ever smoked [employer] Other Sex Assigned At [facility] Start: 12-26-2019 End: 11-04-2022 Tobacco smoking status NHIS Ex-smoker (finding) [facility] Start: 1955 Sex Assigned At Female F [facility] Medical Equipment Procedure Code Equipment Code Equipment Origin al Text Equipment Identifier Dates Arthroplasty, hip, total, anterior approach Acetabular shell [id number] FDA Start: 11-04-2022 Arthroplasty, hip, total, anterior approach Ceramic femoral head prosthesis ()[id number] FDA Start: 11-04-2022 Arthroplasty, hip, total, anterior approach Coated hip femur prosthesis, modular ()[id number] FDA Start: 11-04-2022 Arthroplasty, hip, total, anterior approach Non-constrained polyethylene acetabular liner ()[id number] FDA Start: 11-04-2022 Goals Date Patient Goal Desired Activity /State Functional Status Date Assessment Result Facility 01-06-2023 Functional Status N/A [facility] Clinical Notes 12-18-2020 to 04-02-2023 Note Date [...] level is 595. Folate is 15.8. 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 She is going to see a chief engineer's helper to see if she can learn how [...] was poor and he was in the [place]. She would prefer to stay around 141 pounds which is fine. She does resistance training, walks and is running on her treadmill now. Mar, Kidney stone (ICD-10 - N20.0) She voices that she recently saw Mariana Duong PA-C at [facility] for evaluation and was told she has a 3 mm kidney stone but nothing was done for this. She is now having pain in her kidney and wonders if she should have a KUB x-ray done or not. I did recommend that she contact Mariana PEGUERO to discuss a KUB x-ray and to discuss the calcium supplement. She is to ask Mariana Duong PA-C at [facility] if she should be taking a Calcium+D [...] She should look into the Mediterranean Diet. [employer] Other 01-15-2024 Evaluation note* Encounter Date Diagnosis Assessment Notes Treatment Notes Treatment Clinical Notes 15 [place], 2024 Obstructive sleep apnea (ICD-10 - G47.33) Fortunately, the patient is using and benefiting from treatment. Download was reviewed with patient, Current pressure is controlling apnea well, And we will make no changes at this time. A prescription was sent to the [employer] for new supplies throughout the year. She [...] sleepiness, or poor response to treatment. . [employer] Other 01-10-2024 Evaluation note* Encounter Date Diagnosis Assessment Notes Treatment Notes Treatment Clinical Notes Feb, Rotator cuff syndrome, right (ICD-10 - M75.101) [employer] Other 01-09-2024 Evaluation note* Encounter Date Diagnosis [...] pain of right shoulder (ICD-10 - M25.511) [employer] Other 11-14-2023 Hospital Discharge instructions Patient Education [...] include: ?8 oz (237 mL) of milk, rnggdeg-sxntmxgyxtkk-kwtre milk, and calcium- fortifiedfruit juice. Calcium-fortified means [...] ?Spinach (cooked), rhubarb, beets, sweet potatoes, and [place]agu[place] chard. ?Peanuts. ?Potato chips, turkish fries, and baked potatoes with skin on. ?Nuts and nut products. ?Chocolate. If you regularly take a diuretic medicine, make sure to eat at least 1 or 2 servings of fruits or vegetables that are high in potassium each day. These include: ?Avocado. ?Banana. ?[place], prune, carrot, or tomato juice. ?Baked potato. [...] magnesium, fish oil, or vitamin B6. Take vdel-fgx-kxelfti and prescription medicines only as told by [...] Casseroles. Pizza. Lasagna. Frozen meals. Potato chips. Romanian fries. The items listed above may not [...] provider. Document Revised: 10/21/2021 Document Reviewed: 10/21/2021 [employer] Patient Education 2022 [employer]. Follow Up Care 01/02/2022 10:12:49 With:MARIANA DUONG PA-C, URL Address: [address] [place] [address] [place] [address] When: Unknown [facility] 11-08-2023 Evaluation note* Encounter Date Diagnosis Assessment Notes Treatment Notes Treatment Clinical Notes Dec, Anxiety (ICD-10 - F41.9) [employer] Other 11-08-2023 Evaluation note* Encounter Date Diagnosis [...] hip replacement. 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 on 11/04/2022 Doing well Patient may continue increasing activities as tolerated. Continue taking gzzc-fyf-aufahhs anti-inflammatorie s as needed for assistance with swelling and pain associated with the operative extremity. Follow-up at 1 year postop for repeat examination and repeat x-rays. Patient will call with any questions or concerns. 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 on 11/04/2022 Doing well Patient may [...] examination and x-rays of the right hip. [employer] Other 09-01-2023 Evaluation note* Encounter Date Diagnosis [...] patient could proceed with surgery safely. The diversity manager was vital for surgery timing and [...] plans. Prolonged services time spent: 31 minutes [employer] Other 08-31-2023 Evaluation note* Encounter Date Diagnosis Assessment Notes Treatment Notes Treatment Clinical Notes Sep, Primary osteoarthritis of right hip (ICD-10 - M16.11) Sep, Other 1. Right ABBY Home Medications - DVT prophylaxis: Aspirin - NSAID: Celebrex - Disposition: Same-day discharge-her and her daughters will be there to help her postop Joints Meeting Checklist - Pharmacy: [facility] to bed - Approach/Technique: anterior, [place] bed - Implants: Avenir Complete/G7; - Anesthesia: general versus spinal - Blocks: Fascia iliaca - Preop Antibiotics: Ancef - TXA: yes-systemic - Positioning/OR Bed: supine on [place] bed - Intraop X-ray: yes - Maxwell: [...] elected to proceed with the above surgery. [facility] Other 08-08-2023 Evaluation note* Encounter Date Diagnosis Assessment Notes Treatment Notes Treatment Clinical Notes Sep, Anxiety (ICD-10 - F41.9) [facility] Other 07-28-2023 Evaluation note* Encounter Date Diagnosis Assessment Notes Treatment Notes Treatment Clinical Notes Aug, Primary osteoarthritis of right hip (ICD-10 - M16.11) [facility] Other 07-27-2023 Evaluation note* Encounter Date Diagnosis Assessment Notes Treatment Notes Treatment Clinical Notes Aug, Primary osteoarthritis of right hip (ICD-10 - M16.11) [facility] Other 05-04-2023 Evaluation note* Encounter Date Diagnosis [...] June, Other 9:25 AM - 9:31 AM [facility] Other 04-20-2023 Evaluation note* Encounter Date Diagnosis Assessment Notes Treatment Notes Treatment Clinical Notes May, Hyperlipidemia (ICD-10 - E78.5) [facility] Other 02-13-2023 Evaluation note* Encounter Date Diagnosis Assessment Notes Treatment Notes Treatment Clinical Notes Mar, Cervical pain (ICD-10 - M54.2) Mar, Dysphagia (ICD-10 - R13.10) [facility] Other 02-08-2023 Evaluation note* Encounter Date Diagnosis [...] abnormalities that would impede her swallowing. Mar, senior living use of drug (ICD-10 - Z79.899) Mar, [...] out abnormalities or have her see a photographic lithographer to discuss an EGD. Right now she [...] is an interaction with her other medications. [facility] Other 01-19-2023 Evaluation note* Encounter Date Diagnosis Assessment Notes Treatment Notes Treatment Clinical Notes Feb, Anxiety (ICD-10 - F41.9) [facility] Other 01-11-2023 Evaluation note* Encounter Date Diagnosis [...] stored elsewhere. 6. Follow up as needed [facility] Other 01-03-2023 Evaluation note* Encounter Date Diagnosis Assessment Notes Treatment Notes Treatment Clinical Notes Feb, Obstructive sleep apnea (ICD-10 - G47.33) Fortunately, the patient is using and benefiting from treatment. Download was reviewed with patient, Current pressure is controlling apnea well, And we will make no changes at this time. I did send an order for a mask fitting with recommendations to try Nearpod Gel Pillows Cushion per patient request. A prescription was sent to the [employer] for new supplies throughout the year. She [...] sleepiness, or poor response to treatment. . [facility] Other 11-29-2022 Evaluation note* Encounter Date Diagnosis Assessment Notes Treatment Notes Treatment Clinical Notes Dec, Anxiety (ICD-10 - F41.9) [facility] Other 11-16-2022 Evaluation note* Encounter Date Diagnosis Assessment Notes Treatment Notes Treatment Clinical Notes Dec, Pulmonary nodules (ICD-10 - R91.8) [facility] Other 11-08-2022 Evaluation note* Encounter Date Diagnosis [...] and wore disposable gloves and a mask. [facility] Other 10-12-2022 Evaluation note* Encounter Date Diagnosis Assessment Notes Treatment Notes Treatment Clinical Notes Nov, Anxiety (ICD-10 - F41.9) [facility] Other 08-29-2022 Evaluation note* Encounter Date Diagnosis Assessment Notes Treatment Notes Treatment Clinical Notes Sep, Anxiety (ICD-10 - F41.9) Sep, GERD (gastroesophageal reflux disease) (ICD-10 - K21.9) [facility] Other 08-26-2022 NotePROCEDURE: XR FOOT RT MIN [...] Electronically authenticated by: PAIGE CLAYTON Date: 2021-10-18 10:16[facility]08-19-2022 Evaluation note* Encounter Date Diagnosis Assessment Notes Treatment Notes Treatment Clinical Notes Sep, Anxiety (ICD-10 - F41.9) [facility] Other 08-10-2022 Evaluation note* Encounter Date Diagnosis Assessment Notes Treatment Notes Treatment Clinical Notes Sep, Anxiety (ICD-10 - F41.9) [facility] Other 08-10-2022 Evaluation note* Encounter Date Diagnosis [...] Weight loss (ICD-10 - R63.4) Sep, Other alf (current) drug therapy (ICD-10 - Z79.899) Sep, [...] the day. She is following with Maeve PEGUERO at ortho. Sep, Other 8:25 AM - [...] broken foot. She will continue to monitor. [facility] Other 07-29-2022 NotePROCEDURE: XR FOOT RT MIN [...] authenticated by: PAIGE CLAYTON Date: 2021-09-20 08:10[id number] NotePROCEDURE: XR FOOT RT MIN 3 VIEWS [...] second metatarsal fracture. Electronically authenticated by: PAIGE CLATYON Date: 2021-08-30 09:32[facility]06-20-2022 Evaluation note* Encounter Date Diagnosis Assessment Notes Treatment Notes Treatment Clinical Notes Jul, Anxiety (ICD-10 - F41.9) Jul, Essential hypertension (ICD-10 - I10) [facility] Other 06-16-2022 NotePROCEDURE: XR FOOT RT MIN [...] Electronically authenticated by: PAIGE CLAYTON Date: 2021-08-08 17:31[facility]06-16-2022 Evaluation note* Encounter Date Diagnosis Assessment Notes Treatment Notes Treatment Clinical Notes Jul, Foot pain, right (ICD-10 - M79.671) [facility] Other 05-04-2022 Evaluation note* Encounter Date Diagnosis [...] (ICD-10 - I10) She voices that her [facility] nurse contacts her monthly and suggested she [...] should continue with this. She voiced understanding. [facility] Other 04-26-2022 Evaluation note* Encounter Date Diagnosis Assessment Notes Treatment Notes Treatment Clinical Notes May, Anxiety (ICD-10 - F41.9) [facility] Other 03-15-2022 Evaluation note* Encounter Date Diagnosis Assessment Notes Treatment Notes Treatment Clinical Notes Apr, Obstructive sleep apnea (ICD-10 - G47.33) Fortunately, the patient is using and benefiting from treatment. Download was reviewed with patient, Current pressure is controlling apnea well, And we will make no changes at this time. A prescription was sent to the [employer] for new supplies throughout the year. She [...] sleepiness, or poor response to treatment. . [facility] Other 03-02-2022 Evaluation note* Encounter Date Diagnosis Assessment Notes Treatment Notes Treatment Clinical Notes Apr, Osteopenia (ICD-10 - M85.80) [facility] Other 02-25-2022 Evaluation note* Encounter Date Diagnosis Assessment Notes Treatment Notes Treatment Clinical Notes Mar, Trigger finger, right ring finger (ICD-10 - M65.341) Right ring trigger finger injected with cortisone under sterile technique, patient tolerated well Mar, Right hand pain (ICD-10 - M79.641) [facility] Other 01-28-2022 Evaluation note* Encounter Date Diagnosis [...] last DEXA scan was in 2019. 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 [facility] Other 10-26-2021 Evaluation note* Encounter Date Diagnosis [...] did recommend that she avoid doing planks. [facility] Other Evaluation + Plan note Future Appointments Appointment Date:01/12/2024 08:30:00 AM Scheduled Provider:MARIANA UDONG PA-C Location:[facility] Appointment Type:URO Office Visit [facility] evaluation noteNo InformationNortGoToTags Other Evaluation noteNortGoToTags Other Evaluation noteNo assessment information available [facility] Work Phone: [facility] general Narrative - Reported* Type Description Date [...] 01/08/17 Hospitalization History Vaginal 78 & 79 [facility] Other [facility] general Narrative - [email or web address] Other history general Narrative - Reported* Type [...] 01/08/17 Hospitalization History Vaginal 77 & 79 [facility] Other [facility] general Narrative - Reported* Type Description Date Medical History Hypertension Medical History Esophageal reflux Medical History bladder trouble Medical History generalized anxiety (takes med t wice per month) Medical History Sleep apnea Surgical History Right Breast Biopsy (benign) 19 90's Surgical History Tubal Ligation 1978 Surgical History cystocopy; Dr. Guadalupe Surgical History colonoscopy - Dr Castaneda rman / Normal needs repeat in 09/2015 Surgical History eye lid surgery Dr Collin arevalo 01/08/17 Hospitalization History Vaginal 77 & 79 [facility] Other History general Narrative - Reported* Type Description Date Medical History Hypertension Medical History Esophageal reflux Medical History bladder trouble Medical History generalized anxiety (takes med t wice per month) Medical History Sleep apnea Surgical History Right Breast Biopsy (benign) 's Surgical History Tubal Ligation 1978 Surgical History cystocopy; Dr. Guadalupe Surgical History colonoscopy - Dr Castaneda rman / Normal needs repeat in 09/2015 Surgical History eye lid surgery Dr Collin arevalo 01/08/17 Surgical History RTHA 11/04/22 Hospitalization History Vaginal 78 & 79 [facility] Other Hospital course Narrative No data available for this section [facility] No data available for this section [facility] reason for visit Narrativereview lab, discuss multiple issues see treatment plan for further informationfoodjunky Other Reason for visit Narrativereview labs/med refill, discuss multiple issues, see treatment plan for further [facility] Other Summary Purpose Family History No Family History Records Found Relationship Condition Age at Onset Recorded Date/T casi Not Specified Malignant neoplasm of ovary Unknown father Myocardial infarction Unknown Diabetes mellitus Unknown Relationship Condition Age at Onset Recorded Date/T casi Not Specified Malignant neoplasm of ovary Unknown father Diabetes mellitus Unknown Myocardial infarction Unknown brother History of coronary artery stent placement Unknown brother Malignant neoplasm Unknown Advance Directives No Advanced Directives Records Found Advance Directive Response Recorded Date/ Time Advance [...] section and content) DATE CREATED AUTHOR 08/04/2018 [facility] DATE CREATED AUTHOR AUTHOR'S ORGANIZ ATION 05/05/2020 [facility] DATE CREATED AUTHOR AUTHOR'S ORGANIZ ATION [facility] DATE CREATED AUTHOR AUTHOR'S ORGANIZ ATION 02/28/2023 [facility] DATE CREATED AUTHOR AUTHOR'S ORGANIZ ATION 04/02/2023 [facility] DATE CREATED AUTHOR AUTHOR'S ORGANIZ ATION 04/09/2023 [facility] REASON FOR VISIT (unrecogniz ed section and [...] Active Member Role Status Dates Roma Pritchard DO Primary Care Provider Active Team Status: Inactive Member Role Status Dates Roma Pritchard , Primary Care Provider Active Tanna Wilson NP Attending Provider Active Team Status: Inactive Member Role Status Dates Roma Pritchard DO Primary Care Provider Active Orlando Vicente MD Attending Provider Active Team Status: Inactive Member Role Status Onel Pritchard DO Primary Care Provider Active Ar Herman II, MD Attending Provider Active Team Status: Inactive Member Role Status Onel Pritchard DO Primary Care Provider Active Referral Self Attending Provider Active Team Status: Inactive Member Role Status Onel Pritchard DO Primary Care Provider Active Colby Shaffer DO Attending Provider Active Team Status: Inactive Member Role Status Onel Pritchard DO Primary Care Provide r, Attending [...] 2023 End: March 03, 2023 Colby Shaffer DO Attending Provider Active St art: March [...] BE BASED ON THE PRIMARY CLINICAL RECORDS. [facility]. provides no warranty or guarantee of the accuracy or completeness of information in this document.
== END 2023-04-11 11:39 | disposition home or self-care (01) ==
LOC: US 11:38
PROVIDERS: PCP Family Medicine; Visit Provider Physician Assistant
DX: N20.1 Calculus of ureter (principal); N20.0 Calculus of kidney
CPT/HCPCS: 76775

== ENCOUNTER 2023-05-19 09:21 | Outpatient (OUT) | payer MEDICARE, BC, SELFPAY ==
--- NOTE | 2023-05-19 09:25 | US_ITS ---
[address] [address] Patient Name: RAHUL AGUILERA MRN: [facility]:[id number] date: 1955 Sex: F Assigned Patient Location: Current Patient Location: US Accession/Order Number: [id number] Exam Date: 05/19/2023 09:35 Report Date: 05/19/2023 12:59 At the request of: SHIRA DUONG Procedure: US renal BI EXAMINATION: US renal BI HISTORY: Kidney Stones N20.0 COMPARISON: No relevant comparison available. TECHNIQUE: Ultrasound examination was performed of the bladder. FINDINGS: Right Kidney: Normal in size, contour and echotexture. The cortex measures 1.2 cm. No solid cortical mass, hydronephrosis or obstructing nephrolithiasis Height: 5.6 cm Length: 10.5 cm Width: 3.9 cm Left Kidney: Normal in size, contour and echotexture. The cortex measures 1.6 cm. No solid cortical mass or hydronephrosis. Echogenic foci measuring up to 3 mm, nonobstructing nephrolithiasis. 3.8 cm simple cortical cyst. Height: 6.3 cm Length: 10.9 cm Width: 4.6 cm Urinary bladder: 470 mL. No focal mass or wall thickening US/US renal BI IMPRESSION: 3.8 cm left renal simple cortical cysts Nonobstructing left nephrolithiasis Electronically authenticated by: ROMA BOUDREAUX Date: 05/19/2023 12:59
--- OUTSIDE RECORDS SUMMARY | 2023-05-19 09:39 | XMS_ITS | CCD ---
Author Organization [facility] Care Team Providers Care Pot Operator Name Role Phone Roma Pritchard Unavailable Megan Asencio Unavailable Tanna Wilson Unavailable DO Roma Pritchard Primary Care Provider DO Roma Pritchard Attending Provider DO Roma Pritchard Primary Care Provider DO Roma Pritchard Attending Provider MD Orlando Vicente Attending Provider [phone] LEORA Wilson Attending Provider [phone] MD Ar Herman II Attending Provider Ar Herman II Unavailable [phone] FRANCHESKA, DR BRANDON Primary Care Unavailable RABIA LICONA Admitting Unavailable ZIEBER, DR PAIGE Carmichael Consulting Unavailable RABIA LICONA Attending Unavailable RABIA LICONA Consulting Unavailable FRANCHESKA, DR BRANDON Primary Care Unavailable LIVAN, RABIA Admitting Unavailable ZIEBER, DR PAIGE Carmichael Consulting Unavailable RABIA LICONA Attending Unavailable RABIA LICONA Consulting Unavailable GIRCARMEN, DR BRANDON Primary Care Unavailable RABIA LICONA Attending Unavailable LIVAN, RABIA Admitting Unavailable ZIEBER, DR PAIGE Carmichael Consulting Unavailable RABIA LICONA Consulting Unavailable FRANCHESKA, DR BRANDON Attending Unavailable FRANCHESKA, DR BRANDON Admitting Unavailable FRANCHESKA, DR BRANDON Primary Care Unavailable FRANCHESKA, DR BRANDON Primary Care Unavailable RABIA LICONA Admitting Unavailable RABIA LICONA Attending Unavailable FRANCHESKA, DR BRANDON Primary Care Unavailable GIRCARMEN, DR BRANDON Consulting Unavailable FRANCHESKA, DR BRANDON Attending Unavailable FRANCHESKA, DR BRANDON Admitting Unavailable ZIEBER, DR PAIGE Carmichael Consulting Unavailable GIRCARMEN, DR BRANDON Consulting Unavailable GIRCARMEN, DR BRANDON Admitting Unavailable GIRCARMEN, DR BRANDON Attending Unavailable GIRCARMEN, DR BRANDON Primary Care Unavailable FORREST, DR PAIGE Carmichael Consulting Unavailable GIRCARMEN, DR BRANDON Consulting Unavailable GIRCARMEN, DR BRANDON Attending Unavailable GIRCARMEN, DR BRANDON Admitting Unavailable GIRVIN, DR BRANDON Primary Care Unavailable FORREST, DR PAIGE Carmichael Consulting Unavailable WEST, DR BRANDON V Consulting Unavailable AD, MARIANA Attending Unavailable GIRCARMEN, DR BRANDON Primary Care Unavailable AD, MARIANA Admitting Unavailable AD, MARIANA Consulting Unavailable DO Roma Pritchard Primary Care Provider DO Roma Pritchard Attending Provider [phone] MD Ar Herman II Attending Provider DO Roma Pritchard Primary Care Provider DO Roma Pritchard Attending Provider Roma Pritchard Primary Care Physician DO Roma Pritchard Primary Care Provider [phone] MD Ar Herman II Attending Provider DO Roma Pritchard Attending Provider Self, Referral Attending Provider Unavailable Colby Shaffer Unavailable DO Roma Prtichard Primary Care Provider MD Ar Herman II Attending Provider DO Colby Shaffer Attending Provider LEORA Wilson Attending Provider DO Roma Pritchard Primary Care Provider Roma Pritchard Primary Care Unavailable Roma Pritchard Attending Unavailable Roma Pritchard Admitting Unavailable Francheska, Roma Primary Care Unavailable Ar Herman II Attending Unavailabl e [place] II, Ar Venegas Admitting Unavailabl e [place] II, Ar Venegas Attending Unavailabl e Roma Pritchard Primary Care Unavailable Virgil POTTER, Ar Venegas Admitting Unavailabl e [place] II, Ar Venegas Admitting Unavailabl e [place] II, Ar Venegas Attending Unavailabl e Roma Pritchard Primary Care Unavailable Francheska, Roma Primary Care Unavailable Francheska, Roma Attending Unavailable Francheska, Roma Admitting Unavailable [place] II, Ar Venegas Attending UnavailAr Metzger II Admitting UnavailRoma Dominguez Primary Care Unavailable Roma Pritchard Primary Care Unavailable Self, Referral Admitting Unavailable Self, Referral Attending Unavailable Roma Pritchard Primary Care Unavailable Colby Shaffer Admitting Unavailable Colby Shaffer Attending Unavailable Roma Pritchard Primary Care Unavailable Wilson, Tanna Admitting Unavailable Modesta Wilsongy Attending Unavailable Roma Pritchard Primary Care Unavailable Roma Pritchard Attending Unavailable Roma Pritchard Admitting Unavailable BLAYNE MORALES Attending Unavailable LULA CARCAMO Attending Unavailable BLAYNE MORALES Attending Unavailable AMRIANA DUONG Attending Unavailable MARIANA DUONG Attending Unavailable MARIANA DUONG [...] Start: 09-18-2022 take 5 capsules by m outh once daily Cholecalciferol 25 MCG (1000 UT) 5 capsules Orally Once a day for 30 days 5k daily Aug, Active take 2 capsules by m outh once daily, then take 1 capsule by mouth once daily Vitamin D 50 MCG (1999 UT) 2 capsules qd in the winter [...] ys Active take 1 capsule by mo uth every other day NexIUM 40 1 capsule [...] 10-17-2022 Calcitonin (Sa lmon) (Miacalcin) 200 unit/actuation Buckeye,Non-Aerosol Active 1 SPRAY INTRANASAL (ALT) Daily October [...] Active docusate sodium 50 mg / sennosides, fci 8.6 mg oral tablet (6 sources) Start: [...] DOS: 11/04/2022 Sep, Not-Taking polyethylene glycol 3350 42380 mg powder for oral solution (6 sources) [...] 20 mg Start: 01-12-2019 Kenalog -40 mg 20 Nov, 2019 40 mg valACYclovir 1000 mg oral tablet [...] surgery Chronic Other aftercare (5 sources) Other retirement (current) drug therapy; Translations: [Other termination clerk (current) drug therapy] Onset: 2 Resolved: 2 [...] Test Name Value Interpretation Reference Range Facility Reminderson 05-11-2023 Reminders - From: Nilson KINGSLEY, Susan Venegas To: EU - Recalls Lue; Sent: 04/16/2023 11:09:06 EST Show up: 05/04/2023 11:08:00 EDT Subject: GISSELLE&KUB Due Date/Time: 05/18/2023 11:09:00 EDT Reminder/Recall Pt needs scheduled for GISSELLE & KUB prior to appt 05/27/23. Called pt and reminded her to have GISSELLE/KUB done. Pt states she is having both done on 05/21/23 @ [facility] in the morning. Normal [facility] RAD - Ultrasound Reporton RAD - Ultrasound Report [id number] Normal [facility] RAD - MISCon 04-07-2023 RAD - MISC [id number] Normal [facility] A1C with Estimated Average G daniel 03-25-2023 Glucose [Mass/Vol] 114 mg/dL Normal [facility] Comment on above: Result Comment: PERF ORMED BY: [place] [address] PATHOLOGIST GARDENING INSTRUCTOR CIRA GRAHAM M.D. Performed By: #### A 1C [facility] #### [address] #### NICOTINE #### [facility] , HbA1c (Bld) [Mass fraction] 5.6 % Normal 4.3-5.6 [facility] Comment on above: Result Comment: Incr eased risk for diabetes: 5.7 - 6.4 diabetes: >6.4 glycemic control for adults with diabetes: <7.0 Performed By: #### A 1C [facility] #### [place] [address] [place] #### NICOTINE #### [facility] , Alanine aminotransferase [En zymatic activity/volume] in Serum or PlasmaOrdered By: Roma Pritchard on 03-25-2023 ALT [Catalytic activity/Vol] 17 U/L 7-52 [facility] Albumin [Mass/volume] in Ser um or Plasma by Bromocresol green (BCG) dye binding methoOrdered By: Roma Pritchard on 03-25-2023 Albumin BCG dye [Mass/Vol] 4.3 g/dL 3.5-5.7 [facility] Alkaline phosphatase [Enzyma tic activity/volume] in Serum or PlasmaOrdered By: Roma Pritchard on 03-25-2023 ALP [Catalytic activity/Vol] 74 U/L 34-104 [facility] Aspartate aminotransferase [ Enzymatic activity/volume] in Serum or PlasmaOrdered By: Roma Pritchard on 03-25-2023 AST [Catalytic activity/Vol] 16 U/L 13-39 [facility] Basophils Auto (Bld) [#/Vol] Ordered By: Roma Pritchard on 03-25-2023 Basophils (Bld) [#/Vol] 0.0 10*3/uL 0.0-0.2 [facility] Basophils/100 WBC Auto (Bld) Ordered By: Roma Pritchard on 03-25-2023 Basophils/100 WBC (Bld) 0.7 % . [facility] Bilirubin.total [Mass/volume ] in Serum or PlasmaOrdered By: Roma Pritchard on 03-25-2023 Bilirubin [Mass/Vol] 0.6 mg/dL 0.3-1.0 [facility] Calcium [Mass/volume] in Ser um or PlasmaOrdered By: Roma Pritchard on 03-25-2023 Calcium [Mass/Vol] 9.8 mg/dL 8.6-10.3 [facility] Carbon dioxide, total [Moles /volume] in Serum or PlasmaOrdered By: Roma Pritchard on 03-25-2023 CO2 [Moles/Vol] 33.1 mmol/L 21.0-31.0 [facility] Chloride [Moles/volume] in S bran or PlasmaOrdered By: Roma Pritchard on 03-25-2023 Chloride [Moles/Vol] 103 mmol/L 98-107 [facility] Cholesterol [Mass/volume] in Serum or PlasmaOrdered By: Roma Pritchard on 03-25-2023 Cholesterol [Mass/Vol] 162 mg/dL 140-200 [facility] Comment on above: Chol less than 200 m g/dl low riskChol 201-239 mg/dl borderline riskChol 240 mg/dl and greater high risk Cholesterol in LDL Calc [Mas s/Vol]Ordered By: Roma Pritchard on 03-25-2023 Cholesterol in LDL [Mass/Vol] 60 mg/dL 0-100 [facility] Comment on above: LDL ATP III CLASSIFI CATIONLDL less than 100 mg/dL OptimalLDL 100-129 mg/dL Near or above optimalLDL 130-159 mg/dL Borderline highLDL 160-189 mg/dL HighLDL greater than 189 mg/dL Very high Cholesterol in VLDL Calc [Ma ss/Vol]Ordered By: Roma Pritchard on 03-25-2023 Cholesterol in VLDL [Mass/Vol] 19 mg/dL [facility] Complete Blood Count Auto Di ffon 03-25-2023 Basophils (Bld) [#/Vol] 0.0 10*3/uL Normal 0.0-0.2 [facility] Comment on above: Result Comment: PERF ORMED BY: [place] [address] PATHOLOGIST GARDENING INSTRUCTOR CIRA GRAHAM M.D. Performed By: #### C BC, FOL, TSH3, [id number], CMP, FE and TIBC, B12, A1C WTH eA, LIPID, DINA #### [facility] [address] [place] [address] Basophils/100 WBC (Bld) 0.7 % Normal . [facility] Comment on above: Performed By: #### C BC, FOL, TSH3, [id number], CMP, FE and TIBC, B12, A1C WTH eA, LIPID, DINA #### [facility] [address] [place] [address] [place] Eosinophils (Bld) [#/Vol] 0.1 10*3/uL Normal 0.0-0.45 [facility] Comment on above: Performed By: #### C BC, FOL, TSH3, [id number], CMP, FE and TIBC, B12, A1C WTH eA, LIPID, DINA #### [place] [address] [place] Eosinophils/100 WBC (Bld) 1.8 % Normal . [facility] Comment on above: Performed By: #### C BC, FOL, TSH3, [id number], CMP, FE and TIBC, B12, A1C WTH eA, LIPID, DINA #### [facility] [address] [place] [address] Erythrocyte distribution width (RBC) [Ratio] 14.2 % Normal 11.9-15.3 [facility] Comment on above: Performed By: #### C BC, FOL, TSH3, [id number], CMP, FE and TIBC, B12, A1C WTH eA, LIPID, DINA #### [facility] [address] Hematocrit (Bld) [Volume fraction] 39.7 % Normal 34.0-46.4 [facility] Comment on above: Performed By: #### C BC, FOL, TSH3, [id number], CMP, FE and TIBC, B12, A1C WTH eA, LIPID, DINA #### [address] Hemoglobin (Bld) [Mass/Vol] 13.2 g/dL Normal 11.8-15.4 [facility] Comment on above: Performed By: #### C BC, FOL, TSH3, [id number], CMP, FE and TIBC, B12, A1C WTH eA, LIPID, DINA #### [address] Lymphocytes (Bld) [#/Vol] 1.6 10*3/uL Normal 1.00-4.8 [facility] Comment on above: Performed By: #### C BC, FOL, TSH3, [id number], CMP, FE and TIBC, B12, A1C WTH eA, LIPID, DINA #### [address] Lymphocytes/100 WBC (Bld) 26.5 % Normal . [facility] Comment on above: Performed By: #### C BC, FOL, TSH3, [id number], CMP, FE and TIBC, B12, A1C WTH eA, LIPID, DINA #### [address] MCH (RBC) [Entitic mass] 31.0 pg Normal 24.7-34.3 [facility] Comment on above: Performed By: #### C BC, FOL, TSH3, [id number], CMP, FE and TIBC, B12, A1C WTH eA, LIPID, DINA #### [address] MCV (RBC) [Entitic vol] 93.0 fL Normal 80-100 [facility] Comment on above: Performed By: #### C BC, FOL, TSH3, [id number], CMP, FE and TIBC, B12, A1C WTH eA, LIPID, DINA #### [address] Mean Corpuscular HGB Conc 33.4 g/dL Normal 32.0-35.0 [facility] Comment on above: Performed By: #### C BC, FOL, TSH3, [id number], CMP, FE and TIBC, B12, A1C WTH eA, LIPID, DINA #### [address] Monocytes (Bld) [#/Vol] 0.4 10*3/uL Normal 0.0-0.8 [facility] Comment on above: Performed By: #### C BC, FOL, TSH3, [id number], CMP, FE and TIBC, B12, A1C WTH eA, LIPID, DINA #### [address] Monocytes/100 WBC (Bld) 7.1 % Normal . [facility] Comment on above: Performed By: #### C BC, FOL, TSH3, [id number], CMP, FE and TIBC, B12, A1C WTH eA, LIPID, DINA #### [address] Neutrophils (Bld) [#/Vol] 3.9 10*3/uL Normal 1.8-7.7 [facility] Comment on above: Performed By: #### C BC, FOL, TSH3, [id number], CMP, FE and TIBC, B12, A1C WTH eA, LIPID, DINA #### [address] Neutrophils/100 WBC (Bld) 63.9 % Normal . [facility] Comment on above: Performed By: #### C BC, FOL, TSH3, [id number], CMP, FE and TIBC, B12, A1C WTH eA, LIPID, DINA #### [address] NRBC% 0.1 /100{WBC} Normal 0-0.5 [facility] Comment on above: Performed By: #### C BC, FOL, TSH3, [id number], CMP, FE and TIBC, B12, A1C WTH eA, LIPID, DIAN #### [address] Platelet mean volume (Bld) [Entitic vol] 9.6 fL Normal 6.3-10.7 [facility] Comment on above: Performed By: #### C BC, FOL, TSH3, [id number], CMP, FE and TIBC, B12, A1C WTH eA, LIPID, DINA #### [address] Platelets (Bld) [#/Vol] 248 10*3/uL Normal 150-450 [facility] Comment on above: Performed By: #### C BC, FOL, TSH3, [id number], CMP, FE and TIBC, B12, A1C WTH eA, LIPID, DINA #### [address] RBC (Bld) [#/Vol] 4.27 10*6/uL Normal 3.60-5.00 [facility] Comment on above: Performed By: #### C BC, FOL, TSH3, [id number], CMP, FE and TIBC, B12, A1C WTH eA, LIPID, DINA #### [address] WBC (Bld) [#/Vol] 6.2 10*3/uL Normal 3.8-11.6 [facility] Comment on above: Performed By: #### C BC, FOL, TSH3, [id number], CMP, FE and TIBC, B12, A1C WTH eA, LIPID, DINA #### [address] Comprehensive Metabolic Pane jonh 03-25-2023 Albumin [Mass/Vol] 4.3 g/dL Normal 3.5-5.7 [facility] Comment on above: Performed By: #### C BC, FOL, TSH3, [id number], CMP, FE and TIBC, B12, A1C WTH eA, LIPID, DINA #### [facility] [address] [place] [address] [place] Albumin/Globulin [Mass ratio] 1.7 {ratio} Normal [facility] Comment on above: Performed By: #### C BC, FOL, TSH3, [id number], CMP, FE and TIBC, B12, A1C WTH eA, LIPID, DINA #### [facility] [address] ALP [Catalytic activity/Vol] 74 U/L Normal 34-104 [facility] Comment on above: Performed By: #### C BC, FOL, TSH3, [id number], CMP, FE and TIBC, B12, A1C WTH eA, LIPID, DINA #### [facility] [address] ALT [Catalytic activity/Vol] 17 U/L Normal 7-52 [facility] Comment on above: Performed By: #### C BC, FOL, TSH3, [id number], CMP, FE and TIBC, B12, A1C WTH eA, LIPID, DINA #### [address] Anion gap [Moles/Vol] 9.9 mmol/L Normal 6.0-15.0 [facility] Comment on above: Performed By: #### C BC, FOL, TSH3, [id number], CMP, FE and TIBC, B12, A1C WTH eA, LIPID, DINA #### [address] AST [Catalytic activity/Vol] 16 U/L Normal 13-39 [facility] Comment on above: Performed By: #### C BC, FOL, TSH3, [id number], CMP, FE and TIBC, B12, A1C WTH eA, LIPID, DINA #### [address] Bilirubin [Mass/Vol] 0.6 mg/dL Normal 0.3-1.0 [facility] Comment on above: Performed By: #### C BC, FOL, TSH3, [id number], CMP, FE and TIBC, B12, A1C WTH eA, LIPID, DINA #### [facility] [address] Calcium [Mass/Vol] 9.8 mg/dL Normal 8.6-10.3 [facility] Comment on above: Performed By: #### C BC, FOL, TSH3, [id number], CMP, FE and TIBC, B12, A1C WTH eA, LIPID, DINA #### [facility] [address] Chloride [Moles/Vol] 103 mmol/L Normal 98-107 [facility] Comment on above: Performed By: #### C BC, FOL, TSH3, [id number], CMP, FE and TIBC, B12, A1C WTH eA, LIPID, DINA #### [address] CO2 [Moles/Vol] 33.1 mmol/L High 21.0-31.0 [facility] Comment on above: Performed By: #### C BC, FOL, TSH3, [id number], CMP, FE and TIBC, B12, A1C WTH eA, LIPID, DINA #### [address] Creatinine [Mass/Vol] 0.76 mg/dL Normal 0.60-1.20 [facility] Comment on above: Performed By: #### C BC, FOL, TSH3, [id number], CMP, FE and TIBC, B12, A1C WTH eA, LIPID, DINA #### [address] GFR/1.73 sq M.predicted MDRD (S/P/Bld) [Vol rate/Area] mL/min/{1.73_m2} [facility] Comment on above: Performed By: #### C BC, FOL, TSH3, [id number], CMP, FE and TIBC, B12, A1C WTH eA, LIPID, DINA #### [address] Globulin (S) [Mass/Vol] 2.6 g/dL Normal [facility] Comment on above: Performed By: #### C BC, FOL, TSH3, [id number], CMP, FE and TIBC, B12, A1C WTH eA, LIPID, DINA #### [facility] [address] Glucose [Mass/Vol] 96 mg/dL Normal 70-100 [facility] Comment on above: Result Comment: [facility] Glucose Reference Range is dependent on time and content of last meal. Glucose of more than 200 mg/dL in a nonstressed, ambulatory subject supports the diagnosis of Diabetes Mellitus. ADA recommended reference range Performed By: #### C BC, FOL, TSH3, [id number], CMP, FE and TIBC, B12, A1C WTH eA, LIPID, DINA #### [facility] [address] Potassium [Moles/Vol] 4.0 mmol/L Normal 3.5-5.1 [facility] Comment on above: Performed By: #### C BC, FOL, TSH3, [id number], CMP, FE and TIBC, B12, A1C WTH eA, LIPID, DINA #### [facility] [address] [place] [address] [place] Protein [Mass/Vol] 6.9 g/dL Normal 6.4-8.9 [facility] Comment on above: Performed By: #### C BC, FOL, TSH3, [id number], CMP, FE and TIBC, B12, A1C WTH eA, LIPID, DINA #### [facility] [address] [place] [address] [place] Sodium [Moles/Vol] 142 mmol/L Normal 136-145 [facility] Comment on above: Performed By: #### C BC, FOL, TSH3, [id number], CMP, FE and TIBC, B12, A1C WTH eA, LIPID, DINA #### [place] [address] [place] Urea nitrogen [Mass/Vol] 18 mg/dL Normal 7-25 [facility] Comment on above: Performed By: #### C BC, FOL, TSH3, [id number], CMP, FE and TIBC, B12, A1C WT eA, LIPID, DINA #### [facility] [address] Creatinine [Mass/volume] in Serum or PlasmaOrdered By: Roma Pritchard on 03-25-2023 Creatinine [Mass/Vol] 0.76 mg/dL 0.60-1.20 [facility] Eosinophils Auto (Bld) [#/Vo l]Ordered By: Roma Pritchard on 03-25-2023 Eosinophils (Bld) [#/Vol] 0.1 10*3/uL 0.0-0.45 [facility] Eosinophils/100 WBC Auto (Bl d)Ordered By: Roma Pritchard on 03-25-2023 Eosinophils/100 WBC (Bld) 1.8 % . [facility] Erythrocyte distribution wid th Auto (RBC) [Ratio]Ordered By: Roma Pritchard on 03-25-2023 Erythrocyte distribution width (RBC) [Ratio] 14.2 % 11.9-15.3 [facility] Ferritinon 03-25-2023 Ferritin [Mass/Vol] 19.7 ng/mL Normal 11.0-306.8 [facility] Comment on above: Performed By: #### A 1C [facility] e[facility] #### [place] [address] [place] #### NICOTINE #### [facility] , Ferritin [Mass/volume] in Se rum or PlasmaOrdered By: Roma Pritchard on 03-25-2023 Ferritin [Mass/Vol] 19.7 ng/mL 11.0-306.8 [facility] Folateon 03-25-2023 Folate 15.8 ng/mL Normal >5.9 [facility] Comment on above: Result Comment: Ирина te reference range: >5.9 ng/ml The WHO technical consultation on folate and vitamin b12 deficiencies has determined that folate concentrations less than 4 ng/ml are considered deficient. Performed By: #### A 1C WT eA #### [facility] [address] [place] [address] [place] #### NICOTINE #### [facility] , Folate [Mass/volume] in Seru m or PlasmaOrdered By: Roma Pritchard on 03-25-2023 Folate [Mass/Vol] 15.8 ng/mL >5.9 [facility] Comment on above: Folate reference ran ge: >5.9 ng/mlThe WHO technical consultation on folate and vitamin [id number] has determined that folate concentrations lessthan 4 ng/ml are considered deficient. Globulin Calc (S) [Mass/Vol] Ordered By: Roma Pritchard on 03-25-2023 Globulin (S) [Mass/Vol] 2.6 g/dL [facility] Glucose [Mass/volume] in Ser um or PlasmaOrdered By: Roma Pritchard on 03-25-2023 Glucose [Mass/Vol] 96 mg/dL 70-100 [facility] Comment on above: ADA recommended refe rence rangeRandom Glucose Reference Range is dependent on time and content of last meal. Glucose of more than 200 mg/dL in a nonstressed, ambulatory subject supports the diagnosis of Diabetes Mellitus. Hematocrit Auto (Bld) [Volum e fraction]Ordered By: Roma Pritchard on 03-25-2023 Hematocrit (Bld) [Volume fraction] 39.7 % 34.0-46.4 [facility] Hemoglobin [Mass/volume] in BloodOrdered By: Roma Pritchard on 03-25-2023 Hemoglobin (Bld) [Mass/Vol] 13.2 g/dL 11.8-15.4 [facility] Iron [Mass/volume] in Serum or PlasmaOrdered By: Roma Pritchard on 03-25-2023 Iron [Mass/Vol] 77 ug/dL 50-212 [facility] Iron and TIBC Profileon 02-25 % Iron Saturation 15.5 % Low 20-50 [facility] Comment on above: Performed By: #### A 1C WT eA #### [facility] [address] [place] [address] #### NICOTINE #### [facility] , Iron [Mass/Vol] 77 ug/dL Normal 50-212 [facility] Comment on above: Performed By: #### A 1C [facility] e[facility] #### [facility] [address] [place] [address] [place] #### NICOTINE #### [facility] , Total Iron Binding Capacity 497 ug/dL High 255-450 [facility] Comment on above: Performed By: #### A 1C WT eA #### [facility] [address] [place] [address] [place] #### NICOTINE #### [facility] , Transferrin [Mass/Vol] 355 mg/dL Normal 203-362 [facility] Comment on above: Performed By: #### A 1C WT eA #### [facility] [address] [place] [address] [place] #### NICOTINE #### [facility] , Iron binding capacity [Mass/ volume] in Serum or PlasmaOrdered By: Roma Pritchard on 03-25-2023 Iron binding capacity [Mass/Vol] 497 ug/dL 255-450 [facility] Iron saturation [Mass Fracti on] in Serum or PlasmaOrdered By: Roma Pritchard on 03-25-2023 Iron saturation [Mass fraction] 15.5 % 20-50 [facility] Leukocytes [#/volume] correc dinora for nucleated erythrocytes in Blood by Automated counOrdered By: Roma Pritchard on 03-25-2023 WBC corrected for nucl RBC Auto (Bld) [#/Vol] 6.2 10*3/uL 3.8-11.6 [facility] Lipid Panelon 03-25-2023 Cholesterol [Mass/Vol] 162 mg/dL Normal 140-200 [facility] Comment on above: Result Comment: Chol less than 200 mg/dl low risk Chol 201-239 mg/dl borderline risk Chol 240 mg/dl and greater high risk Performed By: #### A 1C WT eA #### [facility] [address] [place] [address] [place] #### NICOTINE #### [facility] , Cholesterol in HDL [Mass/Vol] 83 mg/dL Normal 23-92 [facility] Comment on above: Result Comment: HDL CHOL ATP-III CLASSIFICATION Cardiovascular Risk HDL > or equal to 60 mg/dL LOW HDL < 40 mg/dL HIGH Performed By: #### A 1C [facility] #### [place] [address] [place] #### NICOTINE #### [facility] , Cholesterol.total/Cho lesterol in HDL [Mass ratio] 2.0 {ratio} Normal <5.0 [facility] Comment on above: Performed By: #### A 1C [facility] #### [place] [address] [place] #### NICOTINE #### [facility] , LDL Cholesterol,Calculate d 60 mg/dL Normal 0-100 [facility] Comment on above: Result Comment: LDL ATP III CLASSIFICATION LDL less than 100 mg/dL Optimal LDL 100-129 mg/dL Near or above optimal LDL 130-159 mg/dL Borderline high LDL 160-189 mg/dL High LDL greater than 189 mg/dL Very high Performed By: #### A 1C [facility] #### [place] [address] [place] #### NICOTINE #### [facility] , Triglyceride w/Reflex 95 mg/dL Normal 0-149 [facility] Comment on above: Result Comment: TRIG ATP III CLASSIFICATION TRIG less than 150 mg/dL Normal TRIG 150-199 mg/dL Borderline high TRIG 200-500 mg/dL High TRIG greater than 500 mg/dL Very high Standard traceable to the Center for Disease Conrtrol and Prevention (CDC) test method. Performed By: #### A [facility]C [facility] #### [place] [address] [place] #### NICOTINE #### [facility] , VLDL CHOLESTEROL 19 mg/dL Normal [facility] Comment on above: Performed By: #### [facility] #### [place] [address] [place] #### NICOTINE #### [facility] , Lymphocytes Auto (Bld) [#/Vo l]Ordered By: Roma Pritchard on 03-25-2023 Lymphocytes (Bld) [#/Vol] 1.6 10*3/uL 1.00-4.8 [facility] Lymphocytes/100 WBC Auto (Bl d)Ordered By: Roma Pritchard on 03-25-2023 Lymphocytes/100 WBC (Bld) 26.5 % . [facility] MCH Auto (RBC) [Entitic mass ]Ordered By: Roma Pritchard on 03-25-2023 MCH (RBC) [Entitic mass] 31.0 pg 24.7-34.3 [facility] MCHC Auto (RBC) [Mass/Vol]Or dered By: Roma Pritchard on 03-25-2023 MCHC (RBC) [Mass/Vol] 33.4 g/dL 32.0-35.0 [facility] MCV Auto (RBC) [Entitic vol] Ordered By: Roma Pritchard on 03-25-2023 MCV (RBC) [Entitic vol] 93.0 fL 80-100 [facility] Monocytes Auto (Bld) [#/Vol] Ordered By: Roma Pritchard on 03-25-2023 Monocytes (Bld) [#/Vol] 0.4 10*3/uL 0.0-0.8 [facility] Monocytes/100 WBC Auto (Bld) Ordered By: Roma Pritchard on 03-25-2023 Monocytes/100 WBC (Bld) 7.1 % . [facility] Neutrophils Auto (Bld) [#/Vo l]Ordered By: Roma Pritchard on 03-25-2023 Neutrophils (Bld) [#/Vol] 3.9 10*3/uL 1.8-7.7 [facility] Neutrophils/100 WBC Auto (Bl d)Ordered By: Roma Pritchard on 03-25-2023 Neutrophils/100 WBC (Bld) 63.9 % . [facility] No Panel InformationOrdered By: Roma Pritchard on 03-25-2023 Estimated GFR (CKD-EPI) > 60.0 mL/Min [facility] Creatinine Clearance (Chem N/A [facility] Nucleated erythrocytes [Pres ence] in Blood by Automated countOrdered By: Roma Pritchard on 03-25-2023 Nucleated RBC Auto Ql (Bld) 0.1 /100{WBC} 0-0.5 [facility] Platelet mean volume Auto (B ld) [Entitic vol]Ordered By: Roma Pritchard on 03-25-2023 Platelet mean volume (Bld) [Entitic vol] 9.6 fL 6.3-10.7 [facility] Platelets Auto (Bld) [#/Vol] Ordered By: Roma Pritchard on 03-25-2023 Platelets (Bld) [#/Vol] 248 10*3/uL 150-450 [facility] Potassium [Moles/volume] in Serum or PlasmaOrdered By: Roma Pritchard on 03-25-2023 Potassium [Moles/Vol] 4.0 mmol/L 3.5-5.1 [facility] Protein [Mass/volume] in Ser um or PlasmaOrdered By: Roma Pritchard on 03-25-2023 Protein [Mass/Vol] 6.9 g/dL 6.4-8.9 [facility] RBC Auto (Bld) [#/Vol]Ordere d By: Roma Pritchard on 03-25-2023 RBC (Bld) [#/Vol] 4.27 10*6/uL 3.60-5.00 [facility] Serum or plasma albumin/glob ulin mass ratioOrdered By: Roma Pritchard on 03-25-2023 Albumin/Globulin [Mass ratio] 1.7 {ratio} [facility] Serum or plasma anion gap de terminationOrdered By: Roma Pritchard on 03-25-2023 Anion gap [Moles/Vol] 9.9 mmol/L 6.0-15.0 [facility] Serum or plasma high density lipoprotein (HDL) cholesterol measurementOrdered By: Roma Pritchard on 03-25-2023 Cholesterol in HDL [Mass/Vol] 83 mg/dL 23-92 [facility] Comment on above: HDL CHOL ATP-III CLA SSIFICATION Cardiovascular RiskHDL > or equal to 60 mg/dL LOWHDL < 40 mg/dL HIGH Serum or plasma total choles terol/high density lipoprotein (HDL) cholesterol mass ratOrdered By: Roma Pritchard on 03-25-2023 Cholesterol.total/Cho lesterol in HDL [Mass ratio] 2.0 {ratio} <5.0 [facility] Sodium [Moles/volume] in Ser um or PlasmaOrdered By: Roma Pritchard on 03-25-2023 Sodium [Moles/Vol] 142 mmol/L 136-145 [facility] Thyroid Stimulating Hormoneo n 03-25-2023 TSH Qn 1.73 m[IU]/L Normal 0.45-5.33 [facility] Comment on above: Performed By: #### [facility] #### [facility] [address] [place] [address] [place] #### NICOTINE #### [facility] , Thyrotropin [Units/volume] i n Serum or PlasmaOrdered By: Roma Pritchard on 03-25-2023 TSH Qn 1.73 m[IU]/L 0.45-5.33 [facility] Transferrin [Mass/volume] in Serum or PlasmaOrdered By: Roma Pritchard on 03-25-2023 Transferrin [Mass/Vol] 355 mg/dL 203-362 [facility] Triglyceride [Mass/volume] i n Serum or PlasmaOrdered By: Roma Pritchard on 03-25-2023 Triglyceride [Mass/Vol] 95 mg/dL 0-149 [facility] Comment on above: TRIG ATP III CLASSIF ICATIONTRIG less than 150 mg/dL NormalTRIG 150-199 mg/dL Borderline highTRIG 200-500 mg/dL High TRIG greater than 500 mg/dL Very highStandard traceable to the Center for Disease Conrtrol and Prevention (CDC) test method. Urea nitrogen [Mass/volume] in Serum or PlasmaOrdered By: Roma Pritchard on 03-25-2023 Urea nitrogen [Mass/Vol] 18 mg/dL 7-25 [facility] Vitamin B12on 03-25-2023 Cobalamin (Vitamin B12) [Mass/Vol] 595 pg/mL Normal 180-914 [facility] Comment on above: Performed By: #### [facility] #### [facility] [address] [place] [address] [place] #### NICOTINE #### [facility] , Vitamin B12 ser/plasOrdered By: Roma Pritchard on 03-25-2023 Cobalamin (Vitamin B12) [Mass/Vol] 595 pg/mL 180-914 [facility] Vitamin D 25 Hydroxy Totalon 03-25-2023 Vitamin D 25 Hydroxy Total 30.6 ng/mL Normal 30-100 [facility] Comment on above: Result Comment: AMBIKA MIN D STATUS 25(OH)VITAMIN D RANGE (ng/mL) Deficient <20 Insufficient 20 to <30 Sufficient 30 to 100 Reference: Salo Loera, Iqra PAGE, et al. Evaluation,treatment, and prevention of vitamin D deficiency; an Endocrine Society clinical practice guideline. JCEM. 2010; 96(7):191-. PERFORMED BY: [place] [address] PATHOLOGIST [employer]ARD[employer] CIRA GRAHAM M.D. Performed By: #### A 1C [facility] #### [address] #### NICOTINE #### [facility] , Vitamin D+Metabolites [Mass/ volume] in Serum or PlasmaOrdered By: Roma Pritchard on 03-25-2023 Vitamin D+Metabolites [Mass/Vol] 30.6 ng/mL 30-100 [facility] Comment on above: VITAMIN D STATUS 25( OH)VITAMIN D RANGE (ng/mL) Deficient <20 Insufficient 20 to <30Sufficient 30 to 100Reference: Salo Loera, Iqra PAGE, et al. Evaluation,treatment, and prevention of vitamin D deficiency; an Endocrine Society clinical practice guideline. JCEM. 2010; 96(7):1911-. WBC Auto (Bld) [#/Vol]Ordere d By: Roma Pritchard on 03-25-2023 WBC (Bld) [#/Vol] 6.2 10*3/uL 3.8-11.6 [facility] XR shoulder RT min 2V*on XR shoulder RT min 2V* [facility] Main [place] [address] [place] [address] XRay Report Signed Patient: Teagan Gonsales MR#: [id number] : 1955 Acct:[id number] Age/Sex: 67 / F ADM Date: 03/03/23 Loc: [facility] Room: Type: [facility] CLI Attending Dr: Colby Shaffer DO Copies to: [...] Yadira Augustin M.D.03/03/2023 12:33 PM Dictation Location: [place] [address] Transcribed By: [facility] 03/03/23 1233 Dictated By: Yadira Augustin MD 03/03/23 1231 Signed By: 03/03/23 1233 [facility] MM screening mammo BI w/CADo n 01-19-2023 MM screening mammo BI w/CAD [facility] [place] [address] Mammography Report Signed Patient: Teagan Gonsales MR#: [id number] : 1955 Acct:[id number] Age/Sex: 67 / F ADM Date: 01/19/23 [place] [facility] Room: Type: [facility] CLI Attending Dr: Referral Self Copies to: Roma [...] next mammogram. Impression dictated by: Martin Ruano Jr. DNkechiONkechi01/19/2023 9:37 AM Dictation Location: [facility] Transcribed By: [facility] 01/19/23936 Dictated By: Martin Ruano Jr, DO 01/19/2336 Signed By: 01/19/2337 [facility] RAD - MISCon 01-14-2023 RAD - MISC [id number]#[id number] Normal [facility] Lab Reportson 01-07-2023 Lab Reports [id number]#[id number] Normal [facility] Screenson 01-07-2023 Screens [id number]#[id number] Normal [facility] Ambulatory Visit Summaryon 1 03-08-2022 Ambulatory Visit Summary ALE, TEAGAN Tyler :1955 Visit Date:01/06/2023 Ambulatory Visit Instructions Your Diagnosis Kidney stones Tests Performed Urnls Dip Stick Auto w/o Microscopy POC 13463 XR Abdomen 1 View -- Results Pending [...] MARIANA DUONG PA-C Where: [facility] Patient Educationon 01-07-20 Patient Education Nephrology Dietary Guidelines to Help [...] ? 8 oz (237 mL) of milk, qxhtsfx-npkoglvlslrd-twvlu milk, and calcium-fortifiedfruit juice. Calcium-fortified means that [...] Spinach (cooked), rhubarb, beets, sweet potatoes, and Iraqi chard. ? Peanuts. ? Potato chips, romanian fries, and baked potatoes with skin on. ? Nuts and nut products. ? Chocolate. ? If you regularly take a diuretic medicine, make sure to eat at least 1 or 2 servings of fruits or vegetables that are high in potassium each day. These include: ? Avocado. ? Banana. ? Spencer, prune, carrot, or tomato juice. ? Baked [...] fish oil, or vitamin B6. ? Take yyli-ozv-knvyfts and prescription medicines only as told by your health care provider. These include supplements. What foods should I limit? Limit your in (more content not included)... Normal [facility] Urology Office/Clinic Noteon 01-06-2023 Urology Office/Clinic Note Chief Complaint 1 year with KUB HPI Staff Previous DLS pt 1yr KUB done 01/02/23 DX: Kidney Stone Pt. states she is not longer taking Oxybutynin therapy from [facility], Pt. also states she does have the [...] pt BBS 12. Oxybutynin therapy managed by [facility], has not been taking it but has [...] Contact Information AD JONES, MARIANA Johnson, URL [address] [place] [address] Additional Instructions: 1 year w/ KUB Patient [...] virus vaccine, inactivated 12/23/2022 Recorded SARS-CoV-2 (COVID-19) [id number] 11/23/2021 Recorded influenza virus vaccine, inactivated 11/20/2021 [...] Recorded z (more content not included)... Normal [facility] Comment on above: Result Comment: Elec tronically Signed By: MARIANA DUONG PA-C\.br\Date and Time Signed: 01/06/23 08:56 EST\.br\Electronically Co-Signed By: Breana Jeffries\.br\Date and Time Co-Signed: 01/06/23 08:51 EST\.br\Electronically Co-Signed By: Breana Jeffries\.br\Date and Time Co-Signed: 01/06/23 08:52 EST Basophils Auto (Bld) [#/Vol] Ordered By: Roma Pritchard on 12-26-2022 Basophils (Bld) [#/Vol] 0.0 10*3/uL 0.0-0.2 [facility] Basophils/100 WBC Auto (Bld) Ordered By: Roma Pritchard on 12-26-2022 Basophils/100 WBC (Bld) 0.6 % . [facility] Complete Blood Count Auto Di ffon 12-26-2022 Basophils (Bld) [#/Vol] 0.0 10*3/uL Normal 0.0-0.2 [facility] Comment on above: Result Comment: PERF ORMED BY: [place] [address] [place] [address] PATHOLOGIST [employer]ARDENING IN[employer]CTOR JIANLAN SUN M.D. Performed By: #### A [facility]C [facility] #### [place] [address] [place] #### NICOTINE #### [facility] , Basophils/100 WBC (Bld) 0.6 % Normal . [facility] Comment on above: Performed By: #### [facility] #### [place] [address] [place] #### NICOTINE #### [facility] , Eosinophils (Bld) [#/Vol] 0.3 10*3/uL Normal 0.0-0.45 [facility] Comment on above: Performed By: #### [facility] #### [place] [address] [place] #### NICOTINE #### [facility] , Eosinophils/100 WBC (Bld) 4.1 % Normal . [facility] Comment on above: Performed By: #### [facility] #### [place] [address] [place] #### NICOTINE #### [facility] , Erythrocyte distribution width (RBC) [Ratio] 14.4 % Normal 11.9-15.3 [facility] Comment on above: Performed By: #### [facility] #### [place] [address] [place] #### NICOTINE #### [facility] , Hematocrit (Bld) [Volume fraction] 37.7 % Normal 34.0-46.4 [facility] Comment on above: Performed By: #### [facility] #### [place] [address] [place] #### NICOTINE #### [facility] , Hemoglobin (Bld) [Mass/Vol] 12.4 g/dL Normal 11.8-15.4 [facility] Comment on above: Performed By: #### [facility] #### [address] #### NICOTINE #### [facility] , Lymphocytes (Bld) [#/Vol] 1.7 10*3/uL Normal 1.00-4.8 [facility] Comment on above: Performed By: #### [facility] #### [place] [address] [place] #### NICOTINE #### [facility] , Lymphocytes/100 WBC (Bld) 27.1 % Normal . [facility] Comment on above: Performed By: #### [facility] #### [address] #### NICOTINE #### [facility] , MCH (RBC) [Entitic mass] 30.1 pg Normal 24.7-34.3 [facility] Comment on above: Performed By: #### A [facility] #### [address] #### NICOTINE #### [facility] , MCV (RBC) [Entitic vol] 91.7 fL Normal 80-100 [facility] Comment on above: Performed By: #### [facility]C [facility] #### [address] #### NICOTINE #### [facility] , Mean Corpuscular HGB Conc 32.8 g/dL Normal 32.0-35.0 [facility] Comment on above: Performed By: #### A 1C [facility] #### [facility] [address] [place] [address] [place] #### NICOTINE #### [facility] , Monocytes (Bld) [#/Vol] 0.5 10*3/uL Normal 0.0-0.8 [facility] Comment on above: Performed By: #### A [facility]C [facility] #### [address] [address] [place] #### NICOTINE #### [facility] , Monocytes/100 WBC (Bld) 8.0 % Normal . [facility] Comment on above: Performed By: #### A [facility]C [facility] #### [place] [address] [place] #### NICOTINE #### [facility] , Neutrophils (Bld) [#/Vol] 3.8 10*3/uL Normal 1.8-7.7 [facility] Comment on above: Performed By: #### A 1C [facility] #### [place] [address] [place] #### NICOTINE #### [facility] , Neutrophils/100 WBC (Bld) 60.2 % Normal . [facility] Comment on above: Performed By: #### A [facility]C [facility] #### [place] [address] [place] #### NICOTINE #### [facility] , NRBC% 0.0 /100{WBC} Normal 0-0.5 [facility] Comment on above: Performed By: #### A 1C [facility] #### [place] [address] [place] #### NICOTINE #### [facility] , Platelet mean volume (Bld) [Entitic vol] 9.8 fL Normal 6.3-10.7 [facility] Comment on above: Performed By: #### A 1C [facility] #### [facility] [address] [place] [address] [place] #### NICOTINE #### [facility] , Platelets (Bld) [#/Vol] 255 10*3/uL Normal 150-450 [facility] Comment on above: Performed By: #### A 1C [facility] #### [facility] [address] [place] [address] [place] #### NICOTINE #### [facility] , RBC (Bld) [#/Vol] 4.11 10*6/uL Normal 3.60-5.00 [facility] Comment on above: Performed By: #### A [facility]C [facility] #### [facility] [address] [place] [address] [place] #### NICOTINE #### [facility] , WBC (Bld) [#/Vol] 6.4 10*3/uL Normal 3.8-11.6 [facility] Comment on above: Performed By: #### A 1C [facility] #### [place] [address] [place] #### NICOTINE #### [facility] , Eosinophils Auto (Bld) [#/Vo l]Ordered By: Roma Pritchard on 12-26-2022 Eosinophils (Bld) [#/Vol] 0.3 10*3/uL 0.0-0.45 [facility] Eosinophils/100 WBC Auto (Bl d)Ordered By: Roma Pritchard on 12-26-2022 Eosinophils/100 WBC (Bld) 4.1 % . [facility] Erythrocyte distribution wid th Auto (RBC) [Ratio]Ordered By: Roma Pritchard on 12-26-2022 Erythrocyte distribution width (RBC) [Ratio] 14.4 % 11.9-15.3 [facility] Ferritinon 12-26-2022 Ferritin [Mass/Vol] 31.9 ng/mL Normal 11.0-306.8 [facility] Comment on above: Performed By: #### A [facility] #### [place] [address] [place] #### NICOTINE #### [facility] , Ferritin [Mass/volume] in Se rum or PlasmaOrdered By: Roma Pritchard on 12-26-2022 Ferritin [Mass/Vol] 31.9 ng/mL 11.0-306.8 [facility] Folateon 12-26-2022 Folate 10.7 ng/mL Normal >5.9 [facility] Comment on above: Result Comment: Ирина te reference range: >5.9 ng/ml The WHO technical consultation on folate and vitamin b12 deficiencies has determined that folate concentrations less than 4 ng/ml are considered deficient. Performed By: #### A [facility]C [facility] #### [facility] [address] [place] [address] [place] #### NICOTINE #### [facility] , Folate [Mass/volume] in Seru m or PlasmaOrdered By: Roma Pritchard on 12-26-2022 Folate [Mass/Vol] 10.7 ng/mL >5.9 [facility] Comment on above: Folate reference ran ge: >5.9 ng/mlThe WHO technical consultation on folate and vitamin [id number] has determined that folate concentrations lessthan 4 ng/ml are considered deficient. Hematocrit Auto (Bld) [Volum e fraction]Ordered By: Roma Pritchard on 12-26-2022 Hematocrit (Bld) [Volume fraction] 37.7 % 34.0-46.4 [facility] Hemoglobin [Mass/volume] in BloodOrdered By: Roma Pritchard on 12-26-2022 Hemoglobin (Bld) [Mass/Vol] 12.4 g/dL 11.8-15.4 [facility] Iron [Mass/volume] in Serum or PlasmaOrdered By: Roma Pritchard on 12-26-2022 Iron [Mass/Vol] 51 ug/dL 50-212 [facility] Iron and TIBC Profileon 11-0 -2022 % Iron Saturation 11.6 % Low 20-50 [facility] Comment on above: Performed By: #### A [facility]C [facility] #### [place] [address] [place] #### NICOTINE #### [facility] , Iron [Mass/Vol] 51 ug/dL Normal 50-212 [facility] Comment on above: Performed By: #### A [facility]C [facility] #### [facility] [address] [place] [address] [place] #### NICOTINE #### [facility] , Total Iron Binding Capacity 440 ug/dL Normal 255-450 [facility] Comment on above: Performed By: #### A 1C [facility] e[facility] #### [facility] [address] [place] [address] [place] #### NICOTINE #### [facility] , Transferrin [Mass/Vol] 314 mg/dL Normal 203-362 [facility] Comment on above: Performed By: #### A 1C [facility] eA #### [facility] [address] [place] [address] [place] #### NICOTINE #### [facility] , Iron binding capacity [Mass/ volume] in Serum or PlasmaOrdered By: Roma Pritchard on 12-26-2022 Iron binding capacity [Mass/Vol] 440 ug/dL 255-450 [facility] Iron saturation [Mass Fracti on] in Serum or PlasmaOrdered By: Roma Pritchard on 12-26-2022 Iron saturation [Mass fraction] 11.6 % 20-50 [facility] Leukocytes [#/volume] correc dinora for nucleated erythrocytes in Blood by Automated counOrdered By: Roma Pritchard on 12-26-2022 WBC corrected for nucl RBC Auto (Bld) [#/Vol] 6.4 10*3/uL 3.8-11.6 [facility] Lymphocytes Auto (Bld) [#/Vo l]Ordered By: Roma Pritchard on 12-26-2022 Lymphocytes (Bld) [#/Vol] 1.7 10*3/uL 1.00-4.8 [facility] Lymphocytes/100 WBC Auto (Bl d)Ordered By: Roma Pritchard on 12-26-2022 Lymphocytes/100 WBC (Bld) 27.1 % . [facility] MCH Auto (RBC) [Entitic mass ]Ordered By: Roma Pritchard on 12-26-2022 MCH (RBC) [Entitic mass] 30.1 pg 24.7-34.3 [facility] MCHC Auto (RBC) [Mass/Vol]Or dered By: Roma Pritchard on 12-26-2022 MCHC (RBC) [Mass/Vol] 32.8 g/dL 32.0-35.0 [facility] MCV Auto (RBC) [Entitic vol] Ordered By: Roma Pritchard on 12-26-2022 MCV (RBC) [Entitic vol] 91.7 fL 80-100 [facility] Monocytes Auto (Bld) [#/Vol] Ordered By: Roma Pritchard on 12-26-2022 Monocytes (Bld) [#/Vol] 0.5 10*3/uL 0.0-0.8 [facility] Monocytes/100 WBC Auto (Bld) Ordered By: Roma Pritchard on 12-26-2022 Monocytes/100 WBC (Bld) 8.0 % . [facility] Neutrophils Auto (Bld) [#/Vo l]Ordered By: Roma Pritchard on 12-26-2022 Neutrophils (Bld) [#/Vol] 3.8 10*3/uL 1.8-7.7 [facility] Neutrophils/100 WBC Auto (Bl d)Ordered By: Roma Pritchard on 12-26-2022 Neutrophils/100 WBC (Bld) 60.2 % . [facility] Nucleated erythrocytes [Pres ence] in Blood by Automated countOrdered By: Roma Pritchard on 12-26-2022 Nucleated RBC Auto Ql (Bld) 0.0 /100{WBC} 0-0.5 [facility] Platelet mean volume Auto (B ld) [Entitic vol]Ordered By: Roma Pritchard on 12-26-2022 Platelet mean volume (Bld) [Entitic vol] 9.8 fL 6.3-10.7 [facility] Platelets Auto (Bld) [#/Vol] Ordered By: Roma Pritchard on 12-26-2022 Platelets (Bld) [#/Vol] 255 10*3/uL 150-450 [facility] RBC Auto (Bld) [#/Vol]Ordere d By: Roma Pritchard on 12-26-2022 RBC (Bld) [#/Vol] 4.11 10*6/uL 3.60-5.00 [facility] Transferrin [Mass/volume] in Serum or PlasmaOrdered By: Roma Pritchard on 12-26-2022 Transferrin [Mass/Vol] 314 mg/dL 203-362 [facility] Vitamin B12on 12-26-2022 Cobalamin (Vitamin B12) [Mass/Vol] 351 pg/mL Normal 180-914 [facility] Comment on above: Performed By: #### [facility] #### [address] #### NICOTINE #### [facility] , Vitamin B12 ser/plasOrdered By: Roma Pritchard on 12-26-2022 Cobalamin (Vitamin B12) [Mass/Vol] 351 pg/mL 180-914 [facility] Vitamin D 25 Hydroxy Totalon 12-26-2022 Vitamin D 25 Hydroxy Total 38.1 ng/mL Normal 30-100 [facility] Comment on above: Result Comment: AMBIKA MIN D STATUS 25(OH)VITAMIN D RANGE (ng/mL) Deficient <20 Insufficient 20 to <30 Sufficient 30 to 100 Reference: Salo Loera, Iqra PAGE, et al. Evaluation,treatment, and prevention of vitamin D deficiency; an Endocrine Society clinical practice guideline. JCEM. 2010; 96(7):191-. PERFORMED BY: [place] [address] PATHOLOGIST GARDENING INSTRUCTOR CIRA GRAHAM M.D. Performed By: #### A [facility]C [facility] #### [address] #### NICOTINE #### [facility] , Vitamin D+Metabolites [Mass/ volume] in Serum or PlasmaOrdered By: Roma Pirtchard on 12-26-2022 Vitamin D+Metabolites [Mass/Vol] 38.1 ng/mL 30-100 [facility] Comment on above: VITAMIN D STATUS 25( OH)VITAMIN D RANGE (ng/mL) Deficient <20 Insufficient 20 to <30Sufficient 30 to 100Reference: Salo Loera, Iqra PAGE, et al. Evaluation,treatment, and prevention of vitamin D deficiency; an Endocrine Society clinical practice guideline. JCEM. 2010; 96(7):1911-. WBC Auto (Bld) [#/Vol]Ordere d By: Roma Pritchard on 12-26-2022 WBC (Bld) [#/Vol] 6.4 10*3/uL 3.8-11.6 [facility] XR hip RT min 2V(w/wo pelvis )*on 12-17-2022 XR hip RT min 2V(w/wo pelvis)* [address] [address] XRay Report Signed Patient: Teagan Gonsales MR#: [id number] : 1955 Acct:[id number] Age/Sex: 67 / F ADM Date: 12/17/22 Loc: [facility] Room: Type: [facility] Attending Dr: Ar Herman II, [...] COMPLICATION.. Impression dictated by: Martin Ruano Jr., D.O.12/17/2022 4:12 PM Dictation Location: [place] [address] Transcribed By: [facility] 12/17/22 1612 Dictated By: Martin Ruano Jr, DO 12/17/22 1611 Signed By: 12/17/[address] [facility] XR hip RT min 2V(w/wo pelvis)* [facility] [employer] Other XR hip RT min 2V(w/wo pelvis)* [facility] [employer] Other XR hip RT min 2V(w/wo pelvis)* [address] [place] [address] [employer] Other XR hip RT min 2V(w/wo pelvis)* [place] [address] [employer] Other XR hip RT min 2V(w/wo pelvis)* XRay Report [employer] Other XR hip RT min 2V(w/wo pelvis)* Signed [employer] Other XR hip RT min 2V(w/wo pelvis)* Patient: Teagan Gonsales MR#: [id number] [employer] Other XR hip RT min 2V(w/wo pelvis)* [id number] [employer] Other XR hip RT min 2V(w/wo pelvis)* : 1955 Acct:[id number] [employer] Other XR hip RT min 2V(w/wo pelvis)* Age/Sex: 67 / F ADM Date: 12/17/22 [employer] Other XR hip RT min 2V(w/wo pelvis)* Loc: [facility] Room: Type: [facility] [employer] Other XR hip RT min 2V(w/wo pelvis)* Attending Dr: Ar Herman II, MD [employer] Other XR hip RT min 2V(w/wo pelvis)* Copies to: Ar Herman MD [employer] Other XR hip RT min 2V(w/wo pelvis)* Ordering Provider: Ar Herman MD [employer] Other XR hip RT min 2V(w/wo pelvis)* Date of Service: 12/17/22 [employer] Other XR hip RT min 2V(w/wo pelvis)* XR/XR hip RT min 2V(w/wo pelvis)*: Aftercare following joint replacement [employer] Other XR hip RT min 2V(w/wo pelvis)* surgery;Presence of ri [employer] [facility] [employer] Other XR hip RT min 2V(w/wo pelvis)* RIGHT HIP - 2 views: 1 view pelvis [employer] Other XR hip RT min 2V(w/wo pelvis)* CLINICAL HISTORY: Follow-up right ABBY [employer] Other XR hip RT min 2V(w/wo pelvis)* COMPARISON: Hip series 11/04/2022 [employer] Other XR hip RT min 2V(w/wo pelvis)* FINDINGS: No evidence of hardware complication or acute bony process. Degenerative changes seen [employer] Other XR hip RT min 2V(w/wo pelvis)* involving the visualized lower lumbar spine. Mild degenerative changes left hip. [employer] Other XR hip RT min 2V(w/wo pelvis)* XR/XR hip RT min 2V(w/wo pelvis)* [employer] Other XR hip RT min 2V(w/wo pelvis)* IMPRESSION: [employer] Other XR hip RT min 2V(w/wo pelvis)* NO EVIDENCE OF HARDWARE COMPLICATION.. [employer] Other XR hip RT min 2V(w/wo pelvis)* Impression dictated by: Martin Ruano Jr., D.ONkechi12/17/2022 4:12 PM [employer] Other XR hip RT min 2V(w/wo pelvis)* Dictation Location: [place] [address] [employer] Other XR hip RT min 2V(w/wo pelvis)* Transcribed By: PWS 12/17/22 1612 [employer] Other XR hip RT min 2V(w/wo pelvis)* Dictated By: Martin Ruano Jr DO 12/17/22 1611 [employer] Other XR hip RT min 2V(w/wo pelvis)* Signed By: [employer] Other XR hip RT min 2V(w/wo pelvis)* 12/17/22 1422 [employer] Other ABO/Rh Retypeon 11-04-2022 ABO/RH Recheck Result Positive Normal [facility] Comment on above: Result Comment: PERF ORMED BY: [facility] [address] [place] [address] PATHOLOGIST GARDENING INSTRUCTOR CIRA GRAHAM M.D. Amphetamine Screen Ql (U)Ord ered By: Moo Saxena on 11-04-2022 Amphetamines Ql (U) Negative Negative [facility] Barbiturates [Presence] in U rine by Screen methodOrdered By: Moo Saxena on 11-04-2022 Barbiturates Screen Ql (U) Negative Negative [facility] Benzodiazepines Screen Ql (U )Ordered By: Moo Saxena on 11-04-2022 Benzodiazepines Ql (U) Negative Negative [facility] Benzoylecgonine [Presence] i n Urine by Screen methodOrdered By: Moo Saxena on 11-04-2022 Benzoylecgonine Screen Ql (U) Negative Negative [facility] Cannabinoids [Presence] in U rine by Screen methodOrdered By: Moo Saxena on 11-04-2022 Cannabinoids Screen Ql (U) Positive Negative [facility] Comment on above: These are unconfirme d results and should not be used for legal purposes. Drug Cut-Off Concentration: AMPH 1000 ng/mL SHIVANI 200 ng/mL TRESA 200 ng/mL COCM 300 ng/mL OP 300 ng/mL PCP 25 ng/mL THC 20 ng/mL Drug Screen,Urineon 11-05-19 Amphetamine Screen,Urine Negative Normal Negative [facility] Comment on above: Performed By: #### U RDS ####[facility] [id number] Barbiturate Screen,Urine Negative Normal Negative [facility] Comment on above: Performed By: #### U RDS ####[facility] [place] [address] [place] Benzodiazepines Screen,Urine Negative Normal Negative [facility] Comment on above: Performed By: #### U RDS ####[place] [id number] [address] Cannabinoid Screen,Urine Positive High Negative [facility] Comment on above: Result Comment: Thes e are unconfirmed results and should not be used for legal purposes. Drug Cut-Off Concentration: AMPH 1000 ng/mL SHIVANI 200 ng/mL TRESA 200 ng/mL COCM 300 ng/mL OP 300 ng/mL PCP 25 ng/mL THC 20 ng/mL PERFORMED BY: [facility] [address] [place] [address] PATHOLOGIST GARDENING INSTRUCTOR CIRA GRAHAM M.D. Performed By: #### U RDS ####[place] [address] [address] Cocaine Screen,Urine Negative Normal Negative [facility] Comment on above: Performed By: #### U RDS ####[address] Opiate Screen,Urine Negative Normal Negative [facility] Comment on above: Performed By: #### U RDS ####[address] Phencyclidine Screen,Urine Negative Normal Negative [facility] Comment on above: Performed By: #### U RDS ####[address] 11-04-2022 L ------ Specimen: [id number] Received: 11/04/22 Status: SAIRA Hank Num: [id number] Spec Type: Surgical Subm Dr: Ar Herman MD Tissues: A Femoral Head - Other than Fracture (RT HIP) Procedures: HE/2, Gross/Micro L3, Decalcification Age/ Patient Sex Location Account Attending Physician Teagan Gonsales 67/F [place] [id number] Ar Herman MD SPEC NUM: [id number] RECD: 11/04/22 STATUS: SAIRA MCKINNEY NUM: [id number] CARLOS: 11/04/22 [facility] DR: Ar Herman MD ENTERED: 11/04/22 [facility] DR: CRIS TYPE: Surgical DEPT: S ORDERED: [...] taken. Gross examination only. (/) CPT Codes 96288 Specimen: [id number] Received: 11/04/22 Status: AVERYFermin Hank Num: [id number] Spec Type: Surgical Subm Dr: Ar Herman MD Tissues: A Femoral Head - Other than Fracture (RT HIP) Procedures: HE/2, Gross/Micro L3, Decalcification Patient: BrandonTeagan [id number] (Continued) Specimen: [id number] Received: 11/04/22 (Continued) Signed (signature on file) Sharmin Mcdonald MD 11/05/22 1724 Specimen: [id number] Received: 11/04/22 Status: SAIRA Mckinney Num: [id number] Spec Type: Surgical Subm Dr: Ar Herman MD Tissues: A Femoral Head - Other than Fracture (RT HIP) Procedures: /2, Gross/Micro L3, Decalcification Patient: Teagan Gonsales Nayeli [id number] (Continued) Specimen: [id number] Received: 11/04/22 (Continued) Isaias Photo Specimen: [id number] Received: 11/04/22 Status: SAIRA Mckinney Num: [id number] Spec Type: Surgical Subm Dr: Ar Herman MD Tissues: A Femoral Head - Other than Fracture (RT HIP) Procedures: HE/2, Gross/Micro L3, Decalcification Patient: Teagan Gonsales [id number] (Continued) Signed (signature on file) Sharmin Mcdonald MD 11/05/22 5087 [facility] Opiates [Presence] in Urine by Screen methodOrdered By: Moo Saxena on 11-04-2022 Opiates Screen Ql (U) Negative Negative [facility] Phencyclidine Screen Ql (U)O rdered By: Moo Saxena on 11-04-2022 Phencyclidine Ql (U) Negative Negative [facility] XR hip RT 1Von 11-04-2022 XR hip RT 1V [address] [address] XRay Report Signed Patient: Teagan Gonsales MR#: [id number] : 1955 Acct:[id number] Age/Sex: 67 / F ADM Date: 11/04/22 Loc: [place] Room: Type: [facility] Attending Dr: Ar Herman II, [...] study. Impression dictated by: Martin Ruano Jr., DNkechiONkechi11/04/2022 2:39 PM Dictation Location: [facility] Transcribed By: [facility] 11/04/22 1439 Dictated By: Martin Ruano Jr, DO 11/04/22 1438 Signed By: 11/04/[address] [facility] XR low pelvis w/RT x-table h ipon 11-04-2022 XR low pelvis w/RT x-table hip [address] [address] XRay Report Signed Patient: Teagan Gonsales MR#: [id number] : 1955 Acct:[id number] Age/Sex: 67 / F ADM Date: 11/04/22 Loc: [place] Room: Type: [facility] Attending Dr: Ar Herman II, MD [...] Yadira Augustin M.D.11/04/2022 3:32 PM Dictation Location: [place] [address] Transcribed By: [facility] 11/04/221531 Dictated By: Yadira Augustin MD 11/04/221529 Signed By: 11/04/221531 Normal [facility] Basic Metabolic Panelon 08- Anion gap [Moles/Vol] 10.1 mmol/L Normal 6.0-15.0 [facility] Comment on above: Performed By: #### A 1C [facility] e[facility] #### [address] #### NICOTINE #### [facility] , Calcium [Mass/Vol] 10.4 mg/dL High 8.6-10.3 [facility] Comment on above: Result Comment: PERF ORMED BY: [place] [address] PATHOLOGIST GARDENING INSTRUCTOR CIRA GRAHAM M.D. Performed By: #### A 1C [facility] e[facility] #### [facility] [address] [place] [address] [place] #### NICOTINE #### [facility] , Chloride [Moles/Vol] 102 mmol/L Normal 98-107 [facility] Comment on above: Performed By: #### A 1C [facility] e[facility] #### [facility] [address] [place] [address] [place] #### NICOTINE #### [facility] , CO2 [Moles/Vol] 32.1 mmol/L High 21.0-31.0 [facility] Comment on above: Performed By: #### A 1C W[facility] eA #### [place] [address] [place] #### NICOTINE #### [facility] , Creatinine [Mass/Vol] 0.73 mg/dL Normal 0.60-1.20 [facility] Comment on above: Performed By: #### A 1C WTH e[place] #### [place] [address] [place] #### NICOTINE #### [facility] , GFR/1.73 sq M.predicted MDRD (S/P/Bld) [Vol rate/Area] mL/min/{1.73_m2} Normal [facility] Comment on above: Performed By: #### A 1C WT eA #### [place] [address] [place] #### NICOTINE #### [facility] , Glucose [Mass/Vol] 81 mg/dL Normal 70-100 [facility] Comment on above: Result Comment: [facility] Glucose Reference Range is dependent on time and content of last meal. Glucose of more than 200 mg/dL in a nonstressed, ambulatory subject supports the diagnosis of Diabetes Mellitus. ADA recommended reference range Performed By: #### A 1C WT eA #### [place] [address] [place] #### NICOTINE #### [facility] , Potassium [Moles/Vol] 4.2 mmol/L Normal 3.5-5.1 [facility] Comment on above: Performed By: #### A 1C WTH eA #### [place] [address] [place] #### NICOTINE #### [facility] , Sodium [Moles/Vol] 140 mmol/L Normal 136-145 [facility] Comment on above: Performed By: #### A 1C [facility] eA #### [address] [place] [address] [place] #### NICOTINE #### [facility] , Urea nitrogen [Mass/Vol] 23 mg/dL Normal - [facility] Comment on above: Performed By: #### A 1C WTH eA #### [facility] [address] [place] [address] [place] #### NICOTINE #### [facility] , Basophils Auto (Bld) [#/Vol] Ordered By: Ar Herman on 10-17-2022 Basophils (Bld) [#/Vol] 0.0 10*3/uL 0.0-0.2 [facility] Basophils/100 WBC Auto (Bld) Ordered By: Ar Herman on 10-17-2022 Basophils/100 WBC (Bld) 0.5 % . [facility] Bilirubin Test strip Ql (U)O rdered By: Ar Herman on 10-17-2022 Bilirubin Ql (U) Negative Negative [facility] Calcium [Mass/volume] in Ser um or PlasmaOrdered By: Ar Herman on 10-17-2022 Calcium [Mass/Vol] 10.4 mg/dL 8.6-10.3 [facility] Carbon dioxide, total [Moles /volume] in Serum or PlasmaOrdered By: Ar Herman on 10-17-2022 CO2 [Moles/Vol] 32.1 mmol/L 21.0-31.0 [facility] Chloride [Moles/volume] in S bran or PlasmaOrdered By: Ar Herman on 10-17-2022 Chloride [Moles/Vol] 102 mmol/L 98-107 [facility] Color Auto (U)Ordered By: Bernie Herman on 10-17-2022 Color (U) Yellow Yellow [facility] Complete Blood Count Auto Di ffon 10-17-2022 Basophils (Bld) [#/Vol] 0.0 10*3/uL Normal 0.0-0.2 [facility] Comment on above: Result Comment: PERF ORMED BY: [place] [address] PATHOLOGIST GARDENING INSTRUCTOR CIRA GRAHAM M.D. Performed By: #### A 1C WTH eA #### [place] [address] [place] #### NICOTINE #### [facility] , Basophils/100 WBC (Bld) 0.5 % Normal . [facility] Comment on above: Performed By: #### A 1C WTH eA #### [place] [address] [place] #### NICOTINE #### [facility] , Eosinophils (Bld) [#/Vol] 0.1 10*3/uL Normal 0.0-0.45 [facility] Comment on above: Performed By: #### A 1C WTH eA #### [place] [address] [place] #### NICOTINE #### [facility] , Eosinophils/100 WBC (Bld) 1.9 % Normal . [facility] Comment on above: Performed By: #### A 1C WTH eA #### [place] [address] [place] #### NICOTINE #### [facility] , Erythrocyte distribution width (RBC) [Ratio] 14.9 % Normal 11.9-15.3 [facility] Comment on above: Performed By: #### A 1C WTH eA #### [place] [address] [place] #### NICOTINE #### [facility] , Hematocrit (Bld) [Volume fraction] 39.9 % Normal 34.0-46.4 [facility] Comment on above: Performed By: #### A 1C WTH eA #### [place] [address] [place] #### NICOTINE #### [facility] , Hemoglobin (Bld) [Mass/Vol] 13.1 g/dL Normal 11.8-15.4 [facility] Comment on above: Performed By: #### A 1C WTH eA #### [address] #### NICOTINE #### [facility] , Lymphocytes (Bld) [#/Vol] 1.6 10*3/uL Normal 1.00-4.8 [facility] Comment on above: Performed By: #### A 1C WTH eA #### [place] [address] [place] #### NICOTINE #### [facility] , Lymphocytes/100 WBC (Bld) 26.2 % Normal . [facility] Comment on above: Performed By: #### A 1C WTH eA #### [address] #### NICOTINE #### [facility] , MCH (RBC) [Entitic mass] 29.8 pg Normal 24.7-34.3 [facility] Comment on above: Performed By: #### A 1C WTH eA #### [address] #### NICOTINE #### [facility] , MCV (RBC) [Entitic vol] 90.4 fL Normal 80-100 [facility] Comment on above: Performed By: #### A 1C WTH eA #### [place] [address] [place] #### NICOTINE #### [facility] , Mean Corpuscular HGB Conc 32.9 g/dL Normal 32.0-35.0 [facility] Comment on above: Performed By: #### A 1C WTH eA #### [facility] [address] [place] [address] [place] #### NICOTINE #### [facility] , Monocytes (Bld) [#/Vol] 0.5 10*3/uL Normal 0.0-0.8 [facility] Comment on above: Performed By: #### A 1C WTH eA #### [place] [address] [place] #### NICOTINE #### [facility] , Monocytes/100 WBC (Bld) 8.4 % Normal . [facility] Comment on above: Performed By: #### A 1C WTH eA #### [place] [address] [place] #### NICOTINE #### [facility] , Neutrophils (Bld) [#/Vol] 3.9 10*3/uL Normal 1.8-7.7 [facility] Comment on above: Performed By: #### A 1C WTH eA #### [place] [address] [place] #### NICOTINE #### [facility] , Neutrophils/100 WBC (Bld) 63.0 % Normal . [facility] Comment on above: Performed By: #### A 1C WTH eA #### [place] [address] [place] #### NICOTINE #### [facility] , NRBC% 0.2 /100{WBC} Normal 0-0.5 [facility] Comment on above: Performed By: #### A 1C WTH eA #### [place] [address] [place] #### NICOTINE #### [facility] , Platelet mean volume (Bld) [Entitic vol] 9.9 fL Normal 6.3-10.7 [facility] Comment on above: Performed By: #### A 1C WTH eA #### [facility] [address] [place] [address] [place] #### NICOTINE #### [facility] , Platelets (Bld) [#/Vol] 245 10*3/uL Normal 150-450 [facility] Comment on above: Performed By: #### A 1C WTH eA #### [facility] [address] [place] [address] #### NICOTINE #### [facility] , RBC (Bld) [#/Vol] 4.42 10*6/uL Normal 3.60-5.00 [facility] Comment on above: Performed By: #### A 1C WTH eA #### [facility] [address] [place] [address] [place] #### NICOTINE #### [facility] , WBC (Bld) [#/Vol] 6.2 10*3/uL Normal 3.8-11.6 [facility] Comment on above: Performed By: #### A 1C WT eA #### [address] #### NICOTINE #### [facility] , Creatinine [Mass/volume] in Serum or PlasmaOrdered By: Ar Herman on 10-17-2022 Creatinine [Mass/Vol] 0.73 mg/dL 0.60-1.20 [facility] ECG 12 lead ECGon 10-17-2022 ECG 12 lead ECG [facility] [place] [address] [place] [address] Electrocardiograph Report Signed Patient: Teagan Gonsales MR#: [id number] : 1955 Acct:[id number] Age/Sex: 67 / F ADM Date: 10/17/22 Loc: Room: Type: [facility] Attending Dr: Ar Herman II, MD [...] was found Confirmed by CHRIS GROVES MD ([id number]) on 10/20/2022 6:33:29 PM Referred By: VIRGIL Electronically Signed By:CHIRS GROVES MD Transcribed By: [place] Signed By Chris Groves MD 0 10/20/[address] [facility] Eosinophils Auto (Bld) [#/Vo l]Ordered By: Ar Herman on 10-17-2022 Eosinophils (Bld) [#/Vol] 0.1 10*3/uL 0.0-0.45 [facility] Eosinophils/100 WBC Auto (Bl d)Ordered By: Ar Herman on 10-17-2022 Eosinophils/100 WBC (Bld) 1.9 % . [facility] Erythrocyte distribution wid th Auto (RBC) [Ratio]Ordered By: Ar Herman on 10-17-2022 Erythrocyte distribution width (RBC) [Ratio] 14.9 % 11.9-15.3 [facility] Fructosamineon 10-17-2022 Fructosamine 237 umol/L Normal 0-285 [facility] Comment on above: Result Comment: Publ ished reference interval for apparently healthy subjects between age 20 and 60 is 205 - 285 umol/L and in a poorly controlled diabetic population is 228 - 563 umol/L with a mean of 396 umol/L. Performed at: [facility] [place] [id number] Volunteer Services Manager: Tripp Tejada PhD, Phone: [phone] PERFORMED BY: [place] [address] PATHOLOGIST GARDENING INSTRUCTOR CIRA GRAHAM M.D. Performed By: #### A 1C [facility] #### [address] #### NICOTINE #### [facility] , Fructosamine [Moles/volume] in Serum or PlasmaOrdered By: Ar Herman on 10-17-2022 Fructosamine [Moles/Vol] 237 umol/L 0-285 [facility] Comment on above: Published reference interval for apparently healthysubjects between age 20 and 60 is 205 - 285 umol/L and in apoorly controlled diabetic population is 228 - 563 umol/Lwith a mean of 396 umol/L.Performed at: - Lab[address] [id number] Director: Tripp Tejada PhD, Phone: [phone] Glucose [Mass/volume] in Ser um or PlasmaOrdered By: Ar Herman on 10-17-2022 Glucose [Mass/Vol] 81 mg/dL 70-100 [facility] Comment on above: ADA recommended refe rence rangeRandom Glucose Reference Range is dependent on time and content of last meal. Glucose of more than 200 mg/dL in a nonstressed, ambulatory subject supports the diagnosis of Diabetes Mellitus. Hematocrit Auto (Bld) [Volum e fraction]Ordered By: Ar Herman on 10-17-2022 Hematocrit (Bld) [Volume fraction] 39.9 % 34.0-46.4 [facility] Hemoglobin [Mass/volume] in BloodOrdered By: Ar Herman on 10-17-2022 Hemoglobin (Bld) [Mass/Vol] 13.1 g/dL 11.8-15.4 [facility] Ketones Auto test strip (U) [Mass/Vol]Ordered By: Ar Herman on 10-17-2022 Ketones (U) [Mass/Vol] Negative Negative [facility] Leukocytes [#/volume] correc dinora for nucleated erythrocytes in Blood by Automated counOrdered By: Ar Herman on 10-17-2022 WBC corrected for nucl RBC Auto (Bld) [#/Vol] 6.2 10*3/uL 3.8-11.6 [facility] Lymphocytes Auto (Bld) [#/Vo l]Ordered By: Ar Herman on 10-17-2022 Lymphocytes (Bld) [#/Vol] 1.6 10*3/uL 1.00-4.8 [facility] Lymphocytes/100 WBC Auto (Bl d)Ordered By: Ar Herman on 10-17-2022 Lymphocytes/100 WBC (Bld) 26.2 % . [facility] MCH Auto (RBC) [Entitic mass ]Ordered By: Ar Herman on 10-17-2022 MCH (RBC) [Entitic mass] 29.8 pg 24.7-34.3 [facility] MCHC Auto (RBC) [Mass/Vol]Or dered By: Ar Herman on 10-17-2022 MCHC (RBC) [Mass/Vol] 32.9 g/dL 32.0-35.0 [facility] MCV Auto (RBC) [Entitic vol] Ordered By: Ar Herman on 10-17-2022 MCV (RBC) [Entitic vol] 90.4 fL 80-100 [facility] Monocytes Auto (Bld) [#/Vol] Ordered By: Ar Herman on 10-17-2022 Monocytes (Bld) [#/Vol] 0.5 10*3/uL 0.0-0.8 [facility] Monocytes/100 WBC Auto (Bld) Ordered By: Ar Herman on 10-17-2022 Monocytes/100 WBC (Bld) 8.4 % . [facility] Neutrophils Auto (Bld) [#/Vo l]Ordered By: Ar Herman on 10-17-2022 Neutrophils (Bld) [#/Vol] 3.9 10*3/uL 1.8-7.7 [facility] Neutrophils/100 WBC Auto (Bl d)Ordered By: Ar Herman on 10-17-2022 Neutrophils/100 WBC (Bld) 63.0 % . [facility] Nitrite Test strip Ql (U)Ord ered By: Ar Herman on 10-17-2022 Nitrite Ql (U) Negative Negative [facility] No Panel InformationOrdered By: Ar Herman on 10-17-2022 Estimated GFR (CKD-EPI) > 60.0 mL/Min [facility] Creatinine Clearance (Chem N/A [facility] Nucleated erythrocytes [Pres ence] in Blood by Automated countOrdered By: Ar Herman on 10-17-2022 Nucleated RBC Auto Ql (Bld) 0.2 /100{WBC} 0-0.5 [facility] PST Type and Screenon 2022 ABO and Rh group Nom (Bld) Blood group A Rh(D) positive Normal [facility] Comment on above: Order Comment: Date of Surgery: 20221104 Platelet mean volume Auto (B ld) [Entitic vol]Ordered By: Ar Herman on 10-17-2022 Platelet mean volume (Bld) [Entitic vol] 9.9 fL 6.3-10.7 [facility] Platelets Auto (Bld) [#/Vol] Ordered By: Ar Herman on 10-17-2022 Platelets (Bld) [#/Vol] 245 10*3/uL 150-450 [facility] Potassium [Moles/volume] in Serum or PlasmaOrdered By: Ar Herman on 10-17-2022 Potassium [Moles/Vol] 4.2 mmol/L 3.5-5.1 [facility] Protein Auto test strip (U) [Mass/Vol]Ordered By: Ar Herman on 10-17-2022 Protein (U) [Mass/Vol] Negative Negative [facility] RBC Auto (Bld) [#/Vol]Ordere d By: rA Herman on 10-17-2022 RBC (Bld) [#/Vol] 4.42 10*6/uL 3.60-5.00 [facility] Serum or plasma anion gap de terminationOrdered By: Ar Herman on 10-17-2022 Anion gap [Moles/Vol] 10.1 mmol/L 6.0-15.0 [facility] Sodium [Moles/volume] in Ser um or PlasmaOrdered By: Ar Herman on 10-17-2022 Sodium [Moles/Vol] 140 mmol/L 136-145 [facility] Specific gravity Auto test s trip (U) [Rel density]Ordered By: Ar Herman on 10-17-2022 Specific gravity (U) [Rel density] 1.018 1.001-1.[address] [facility] Urea nitrogen [Mass/volume] in Serum or PlasmaOrdered By: Ar Herman on 10-17-2022 Urea nitrogen [Mass/Vol] 23 mg/dL 09-16 [facility] Urinalysison 10-17-2022 Appearance (U) Clear Normal Clear [facility] Comment on above: Order Comment: Name Collection Type:: Clean-Voided Midstream Performed By: #### U A #### [facility] [address] [place] [address] [place] Bilirubin,Urine Negative Normal Negative [facility] Comment on above: Order Comment: Name Collection Type:: Clean-Voided Midstream Performed By: #### U A #### [facility] [address] [place] [address] [place] Color (U) Yellow Normal Yellow [facility] Comment on above: Order Comment: Name Collection Type:: Clean-Voided Midstream Performed By: #### U A #### [facility] [address] [place] [address] [place] Glucose Ql (U) Normal Normal Normal [facility] Comment on above: Order Comment: Name Collection Type:: Clean-Voided Midstream Performed By: #### U A #### [facility] [address] [place] [address] [place] Ketones Ql (U) Negative Normal Negative [facility] Comment on above: Order Comment: Name Collection Type:: Clean-Voided Midstream Performed By: #### U A #### [place] [address] [place] Leukocyte esterase Test strip Ql (U) Negative Normal Negative [facility] Comment on above: Order Comment: Name Collection Type:: Clean-Voided Midstream Performed By: #### U A #### [facility] [address] [place] [address] [place] Nitrite,Urine Negative Normal Negative [facility] Comment on above: Order Comment: Name Collection Type:: Clean-Voided Midstream Performed By: #### U A #### [facility] [address] [place] [address] [place] Occult Blood,Urine Negative Normal Negative [facility] Comment on above: Order Comment: Name Collection Type:: Clean-Voided Midstream Result Comment: PERF ORMED BY: [place] [address] PATHOLOGIST GARDENING INSTRUCTOR CIRA GRAHAM M.D. Performed By: #### U A #### [facility] [address] pH (U) 6.5 [pH] Normal 5.0-9.0 [facility] Comment on above: Order Comment: Name Collection Type:: Clean-Voided Midstream Performed By: #### U A #### [facility] [address] [place] [address] [place] Protein,Urine Negative Normal Negative [facility] Comment on above: Order Comment: Name Collection Type:: Clean-Voided Midstream Performed By: #### U A #### [facility] [address] [place] [address] Specificy [place],Urine 1.018 Normal 1.001-1.[address] [facility] Comment on above: Order Comment: Name Collection Type:: Clean-Voided Midstream Performed By: #### U A #### [facility] [address] [place] [address] Urobilinogen,Urine Normal Normal Normal [facility] [facility] Comment on above: Order Comment: Name Collection Type:: Clean-Voided Midstream Performed By: #### U A #### [facility] [address] [place] [address] Urine clarity by refractomet ry automatedOrdered By: Ar Herman on 10-17-2022 Clarity Refractometry automated (U) Clear Clear [facility] Urine glucose measurement by automated test strip (mass/volume)Ordered By: Ar Herman on 10-17-2022 Glucose Auto test strip (U) [Mass/Vol] Normal mg/dL Normal [facility] Urine hemoglobin detection b y automated test stripOrdered By: Ar Herman on 10-17-2022 Hemoglobin Auto test strip Ql (U) Negative Negative [facility] Urine leukocyte esterase det ection by automated test stripOrdered By: Ar Herman on 10-17-2022 Leukocyte esterase Auto test strip Ql (U) Negative Negative [facility] Urobilinogen Auto test strip (U) [Mass/Vol]Ordered By: Ar Herman on 10-17-2022 Urobilinogen (U) [Mass/Vol] Normal mg/dL Normal [facility] WBC Auto (Bld) [#/Vol]Ordere d By: Ar Herman on 10-17-2022 WBC (Bld) [#/Vol] 6.2 10*3/uL 3.8-11.6 [facility] pH Auto test strip (U)Ordere d By: Ar Herman on 10-17-2022 pH (U) 6.5 [pH] 5.0-9.0 [facility] A1C with Estimated Average G coryn 09-15-2022 Glucose [Mass/Vol] 123 mg/dL Normal [facility] Comment on above: Order Comment: 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;Other retirement (current) drug therap Result Comment: PERF ORMED BY: [place] [address] PATHOLOGIST GARDENING INSTRUCTOR CIRA GRAHAM M.D. Performed By: #### A 1C [facility] eA #### [address] #### NICOTINE #### [facility] , HbA1c (Bld) [Mass fraction] 5.9 % High 4.3-5.6 [facility] Comment on above: Order Comment: 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;Other termination clerk (current) drug therap Result Comment: Incr eased risk for diabetes: 5.7 - 6.4 diabetes: >6.4 glycemic control for adults with diabetes: <7.0 Performed By: #### A 1C WT eA #### [place] [address] [place] #### NICOTINE #### [facility] , Alanine aminotransferase [En zymatic activity/volume] in Serum or PlasmaOrdered By: Roma Pritchard on 09-15-2022 ALT [Catalytic activity/Vol] 17 U/L [facility] Albumin [Mass/volume] in Ser um or Plasma by Bromocresol green (BCG) dye binding methoOrdered By: Roma Pritchard on 09-15-2022 Albumin BCG dye [Mass/Vol] 4.4 g/dL 3.5-5.7 [facility] Alkaline phosphatase [Enzyma tic activity/volume] in Serum or PlasmaOrdered By: Roma Pritchard on 09-15-2022 ALP [Catalytic activity/Vol] 69 U/L 34-104 [facility] Aspartate aminotransferase [ Enzymatic activity/volume] in Serum or PlasmaOrdered By: Roma Pritchard on 09-15-2022 AST [Catalytic activity/Vol] 19 U/L 13-39 [facility] Basophils Auto (Bld) [#/Vol] Ordered By: Roma Pritchard on 09-15-2022 Basophils (Bld) [#/Vol] 0.0 10*3/uL 0.0-0.2 [facility] Basophils/100 WBC Auto (Bld) Ordered By: Roma Pritchard on 09-15-2022 Basophils/100 WBC (Bld) 0.6 % . [facility] Bilirubin.total [Mass/volume ] in Serum or PlasmaOrdered By: Roma Pritchard on 09-15-2022 Bilirubin [Mass/Vol] 0.8 mg/dL 0.3-1.0 [facility] Calcium [Mass/volume] in Ser um or PlasmaOrdered By: Roma Pritchard on 09-15-2022 Calcium [Mass/Vol] 9.6 mg/dL 8.6-10.3 [facility] Carbon dioxide, total [Moles /volume] in Serum or PlasmaOrdered By: Roma Pritchard on 09-15-2022 CO2 [Moles/Vol] 29.1 mmol/L 21.0-31.0 [facility] Chloride [Moles/volume] in S bran or PlasmaOrdered By: Roma Pritchard on 09-15-2022 Chloride [Moles/Vol] 105 mmol/L 98-107 [facility] Cholesterol [Mass/volume] in Serum or PlasmaOrdered By: Roma Pritchard on 09-15-2022 Cholesterol [Mass/Vol] 162 mg/dL 140-200 [facility] Comment on above: Chol less than 200 m g/dl low riskChol 201-239 mg/dl borderline riskChol 240 mg/dl and greater high risk Cholesterol in LDL Calc [Mas s/Vol]Ordered By: Roma Pritchard on 09-15-2022 Cholesterol in LDL [Mass/Vol] 66 mg/dL 0-100 [facility] Comment on above: LDL ATP III CLASSIFI CATIONLDL less than 100 mg/dL OptimalLDL 100-129 mg/dL Near or above optimalLDL 130-159 mg/dL Borderline highLDL 160-189 mg/dL HighLDL greater than 189 mg/dL Very high Cholesterol in VLDL Calc [Ma ss/Vol]Ordered By: Roma Pritchard on 09-15-2022 Cholesterol in VLDL [Mass/Vol] 32 mg/dL [facility] Complete Blood Count Auto Di ffon 09-15-2022 Basophils (Bld) [#/Vol] 0.0 10*3/uL Normal 0.0-0.2 [facility] Comment on above: Order Comment: 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;Other retirement (current) drug therap Result Comment: PERF ORMED BY: [place] [address] PATHOLOGIST GARDENING INSTRUCTOR CIRA GRAHAM M.D. Performed By: #### A [facility] eA #### [place] [address] [place] #### NICOTINE #### [facility] , Basophils/100 WBC (Bld) 0.6 % Normal . [facility] Comment on above: Order Comment: 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;Other termination clerk (current) drug therap Performed By: #### A [facility] e[place] #### [place] [address] [place] #### NICOTINE #### [facility] , Eosinophils (Bld) [#/Vol] 0.1 10*3/uL Normal 0.0-0.45 [facility] Comment on above: Order Comment: 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;Other retirement (current) drug therap Performed By: #### A 1C [facility] e[facility] #### [facility] [address] [place] [address] [place] #### NICOTINE #### [facility] , Eosinophils/100 WBC (Bld) 2.1 % Normal . [facility] Comment on above: Order Comment: 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;Other retirement (current) drug therap Performed By: #### A [facility] e[facility] #### [place] [address] [place] #### NICOTINE #### [facility] , Erythrocyte distribution width (RBC) [Ratio] 14.2 % Normal 11.9-15.3 [facility] Comment on above: Order Comment: 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;Other termination clerk (current) drug therap Performed By: #### A [facility] e[facility] #### [place] [address] [place] #### NICOTINE #### [facility] , Hematocrit (Bld) [Volume fraction] 35.6 % Normal 34.0-46.4 [facility] Comment on above: Order Comment: 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;Other termination clerk (current) drug therap Performed By: #### A [facility] e[facility] #### [place] [address] [place] #### NICOTINE #### [facility] , Hemoglobin (Bld) [Mass/Vol] 11.7 g/dL Low 11.8-15.4 [facility] Comment on above: Order Comment: 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;Other retirement (current) drug therap Performed By: #### A [facility] e[facility] #### [place] [address] [place] #### NICOTINE #### [facility] , Lymphocytes (Bld) [#/Vol] 1.2 10*3/uL Normal 1.00-4.8 [facility] Comment on above: Order Comment: 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;Other retirement (current) drug therap Performed By: #### A [facility] e[facility] #### [place] [address] [place] #### NICOTINE #### [facility] , Lymphocytes/100 WBC (Bld) 19.7 % Normal . [facility] Comment on above: Order Comment: 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;Other retirement (current) drug therap Performed By: #### A 1C [facility] e[facility] #### [place] [address] [place] #### NICOTINE #### [facility] , MCH (RBC) [Entitic mass] 29.5 pg Normal 24.7-34.3 [facility] Comment on above: Order Comment: 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;Other termination clerk (current) drug therap Performed By: #### A [facility] #### [place] [address] [place] #### NICOTINE #### [facility] , MCV (RBC) [Entitic vol] 89.7 fL Normal 80-100 [facility] Comment on above: Order Comment: 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;Other termination clerk (current) drug therap Performed By: #### A [facility] e[place] #### [place] [address] [place] #### NICOTINE #### [facility] , Mean Corpuscular HGB Conc 32.8 g/dL Normal 32.0-35.0 [facility] Comment on above: Order Comment: 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;Other termination clerk (current) drug therap Performed By: #### A [facility] #### [place] [address] [place] #### NICOTINE #### [facility] , Monocytes (Bld) [#/Vol] 0.4 10*3/uL Normal 0.0-0.8 [facility] Comment on above: Order Comment: 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;Other termination clerk (current) drug therap Performed By: #### A 1C [facility] e[facility] #### [place] [address] [place] #### NICOTINE #### [facility] , Monocytes/100 WBC (Bld) 7.1 % Normal . [facility] Comment on above: Order Comment: 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;Other retirement (current) drug therap Performed By: #### A [facility] #### [place] [address] [place] #### NICOTINE #### [facility] , Neutrophils (Bld) [#/Vol] 4.3 10*3/uL Normal 1.8-7.7 [facility] Comment on above: Order Comment: 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;Other termination clerk (current) drug therap Performed By: #### A [facility] #### [place] [address] [place] #### NICOTINE #### [facility] , Neutrophils/100 WBC (Bld) 70.5 % Normal . [facility] Comment on above: Order Comment: 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;Other retirement (current) drug therap Performed By: #### A [facility] e[facility] #### [place] [address] [place] #### NICOTINE #### [facility] , NRBC% 0.2 /100{WBC} Normal 0-0.5 [facility] Comment on above: Order Comment: 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;Other retirement (current) drug therap Performed By: #### A [facility] #### [place] [address] [place] #### NICOTINE #### [facility] , Platelet mean volume (Bld) [Entitic vol] 9.9 fL Normal 6.3-10.7 [facility] Comment on above: Order Comment: 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;Other retirement (current) drug therap Performed By: #### A 1C [facility] e[facility] #### [place] [address] [place] #### NICOTINE #### [facility] , Platelets (Bld) [#/Vol] 252 10*3/uL Normal 150-450 [facility] Comment on above: Order Comment: 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;Other termination clerk (current) drug therap Performed By: #### A 1C WT eA #### [place] [address] [place] #### NICOTINE #### [facility] , RBC (Bld) [#/Vol] 3.96 10*6/uL Normal 3.60-5.00 [facility] Comment on above: Order Comment: 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;Other retirement (current) drug therap Performed By: #### A 1C [facility] e[facility] #### [place] [address] [place] #### NICOTINE #### [facility] , WBC (Bld) [#/Vol] 6.2 10*3/uL Normal 3.8-11.6 [facility] Comment on above: Order Comment: 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;Other termination clerk (current) drug therap Performed By: #### A 1C WT eA #### [place] [address] [place] #### NICOTINE #### [facility] , Comprehensive Metabolic Pane jonh 09-15-2022 Albumin [Mass/Vol] 4.4 g/dL Normal 3.5-5.7 [facility] Comment on above: Order Comment: 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;Other retirement (current) drug therap Performed By: #### A 1C WT eA #### [facility] [address] [place] [address] [place] #### NICOTINE #### [facility] , Albumin/Globulin [Mass ratio] 1.8 {ratio} Normal [facility] Comment on above: Order Comment: 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;Other termination clerk (current) drug therap Performed By: #### A 1C WT eA #### [address] #### NICOTINE #### [facility] , ALP [Catalytic activity/Vol] 69 U/L Normal 34-104 [facility] Comment on above: Order Comment: 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;Other termination clerk (current) drug therap Performed By: #### A 1C WT eA #### [facility] [address] [place] [address] [place] #### NICOTINE #### [facility] , ALT [Catalytic activity/Vol] 17 U/L Normal 7-52 [facility] Comment on above: Order Comment: 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;Other termination clerk (current) drug therap Performed By: #### A 1C [facility] e[facility] #### [place] [address] [place] #### NICOTINE #### [facility] , Anion gap [Moles/Vol] 10.8 mmol/L Normal 6.0-15.0 [facility] Comment on above: Order Comment: 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;Other termination clerk (current) drug therap Performed By: #### A 1C [facility] e[facility] #### [facility] [address] [place] [address] [place] #### NICOTINE #### [facility] , AST [Catalytic activity/Vol] 19 U/L Normal 13-39 [facility] Comment on above: Order Comment: 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;Other termination clerk (current) drug therap Performed By: #### A 1C [facility] e[facility] #### [facility] [address] [place] [address] [place] #### NICOTINE #### [facility] , Bilirubin [Mass/Vol] 0.8 mg/dL Normal 0.3-1.0 [facility] Comment on above: Order Comment: 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;Other retirement (current) drug therap Performed By: #### A 1C [facility] e[facility] #### [facility] [address] [place] [address] [place] #### NICOTINE #### [facility] , Calcium [Mass/Vol] 9.6 mg/dL Normal 8.6-10.3 [facility] Comment on above: Order Comment: 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;Other retirement (current) drug therap Performed By: #### A 1C WT eA #### [place] [address] [place] #### NICOTINE #### [facility] , Chloride [Moles/Vol] 105 mmol/L Normal 98-107 [facility] Comment on above: Order Comment: 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;Other retirement (current) drug therap Performed By: #### A 1C [facility] e[facility] #### [place] [address] [place] #### NICOTINE #### [facility] , CO2 [Moles/Vol] 29.1 mmol/L Normal 21.0-31.0 [facility] Comment on above: Order Comment: 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;Other termination clerk (current) drug therap Performed By: #### A 1C [facility] e[facility] #### [place] [address] [place] #### NICOTINE #### [facility] , Creatinine [Mass/Vol] 0.72 mg/dL Normal 0.60-1.20 [facility] Comment on above: Order Comment: 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;Other termination clerk (current) drug therap Performed By: #### A 1C WT eA #### [facility] [address] [place] [address] [place] #### NICOTINE #### [facility] , GFR/1.73 sq M.predicted MDRD (S/P/Bld) [Vol rate/Area] mL/min/{1.73_m2} Normal [facility] Comment on above: Order Comment: 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;Other termination clerk (current) drug therap Performed By: #### A 1C WT eA #### [place] [address] [place] #### NICOTINE #### [facility] , Globulin (S) [Mass/Vol] 2.4 g/dL Normal [facility] Comment on above: Order Comment: 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;Other termination clerk (current) drug therap Performed By: #### A 1C [facility] e[facility] #### [place] [address] [place] #### NICOTINE #### [facility] , Glucose [Mass/Vol] 98 mg/dL Normal 70-100 [facility] Comment on above: Order Comment: 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;Other termination clerk (current) drug therap Result Comment: [place] Glucose Reference Range is dependent on time and content of last meal. Glucose of more than 200 mg/dL in a nonstressed, ambulatory subject supports the diagnosis of Diabetes Mellitus. ADA recommended reference range Performed By: #### A 1C [facility] e[facility] #### [place] [address] [place] #### NICOTINE #### [facility] , Potassium [Moles/Vol] 3.9 mmol/L Normal 3.5-5.1 [facility] Comment on above: Order Comment: 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;Other retirement (current) drug therap Performed By: #### A 1C [facility] e[facility] #### [place] [address] [place] #### NICOTINE #### [facility] , Protein [Mass/Vol] 6.8 g/dL Normal 6.4-8.9 [facility] Comment on above: Order Comment: 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;Other termination clerk (current) drug therap Performed By: #### A 1C WT eA #### [place] [address] [place] #### NICOTINE #### [facility] , Sodium [Moles/Vol] 141 mmol/L Normal 136-145 [facility] Comment on above: Order Comment: 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;Other retirement (current) drug therap Performed By: #### A 1C WT eA #### [facility] [address] [place] [address] [place] #### NICOTINE #### [facility] , Urea nitrogen [Mass/Vol] 23 mg/dL Normal 7-25 [facility] Comment on above: Order Comment: 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;Other termination clerk (current) drug therap Performed By: #### A 1C WT eA #### [facility] [address] [place] [address] [place] #### NICOTINE #### [facility] , Cotinine [Mass/volume] in Se rum or PlasmaOrdered By: Ar Herman on 09-15-2022 Cotinine [Mass/Vol] <1.0 ng/mL . [facility] Comment on above: This test was develo ped and its performance characteristicsdetermined by [employer]. It has not been cleared orapproved by the Food and Drug Administration.Cotinine levels greater than 20.0 are consistent with theuse of tobacco or tobacco cessation products.Performed at: [facility] [address] [id number] Director: Keshia Duron MD, Phone: [phone] Creatinine [Mass/volume] in Serum or PlasmaOrdered By: Roma Pritchard on 09-15-2022 Creatinine [Mass/Vol] 0.72 mg/dL 0.60-1.20 [facility] Eosinophils Auto (Bld) [#/Vo l]Ordered By: Roma Pritchard on 09-15-2022 Eosinophils (Bld) [#/Vol] 0.1 10*3/uL 0.0-0.45 [facility] Eosinophils/100 WBC Auto (Bl d)Ordered By: Roma Pritchard on 09-15-2022 Eosinophils/100 WBC (Bld) 2.1 % . [facility] Erythrocyte distribution wid th Auto (RBC) [Ratio]Ordered By: Roma Pritchard on 09-15-2022 Erythrocyte distribution width (RBC) [Ratio] 14.2 % 11.9-15.3 [facility] Folateon 09-15-2022 Folate 16.7 ng/mL Normal >5.9 [facility] Comment on above: Result Comment: Ирина te reference range: >5.9 ng/ml The WHO technical consultation on folate and vitamin b12 deficiencies has determined that folate concentrations less than 4 ng/ml are considered deficient. PERFORMED BY: [place] [address] PATHOLOGIST GARDENING INSTRUCTOR CIRA GRAHAM M.D. Performed By: #### F OL, LIPID, B12 #### [address] Folate [Mass/volume] in Seru m or PlasmaOrdered By: Roma Pritchard on 09-15-2022 Folate [Mass/Vol] 16.7 ng/mL >5.9 [facility] Comment on above: Folate reference ran ge: >5.9 ng/mlThe WHO technical consultation on folate and vitamin [id number] has determined that folate concentrations lessthan 4 ng/ml are considered deficient. Globulin Calc (S) [Mass/Vol] Ordered By: Roma Pritchard on 09-15-2022 Globulin (S) [Mass/Vol] 2.4 g/dL [facility] Glucose [Mass/volume] in Ser um or PlasmaOrdered By: Roma Pritchard on 09-15-2022 Glucose [Mass/Vol] 98 mg/dL 70-100 [facility] Comment on above: ADA recommended refe rence rangeRandom Glucose Reference Range is dependent on time and content of last meal. Glucose of more than 200 mg/dL in a nonstressed, ambulatory subject supports the diagnosis of Diabetes Mellitus. Glucose mean value [Mass/vol ume] in Blood Estimated from glycated hemoglobinOrdered By: Roma Pritchard on 09-15-2022 Average glucose Estimated from glycated hemoglobin (Bld) [Mass/Vol] 123 mg/dL [facility] Hematocrit Auto (Bld) [Volum e fraction]Ordered By: Roma Pritchard on 09-15-2022 Hematocrit (Bld) [Volume fraction] 35.6 % 34.0-46.4 [facility] Hemoglobin A1c percentageOrd ered By: Roma Pritchard on 09-15-2022 HbA1c (Bld) [Mass fraction] 5.9 % 4.3-5.6 [facility] Comment on above: Increased risk for d iabetes: 5.7 - 6.4diabetes: >6.4glycemic control for adults with diabetes: <7.0 Hemoglobin [Mass/volume] in BloodOrdered By: Roma Pritchard on 09-15-2022 Hemoglobin (Bld) [Mass/Vol] 11.7 g/dL 11.8-15.4 [facility] Leukocytes [#/volume] correc dinora for nucleated erythrocytes in Blood by Automated counOrdered By: Roma Pritchard on 09-15-2022 WBC corrected for nucl RBC Auto (Bld) [#/Vol] 6.2 10*3/uL 3.8-11.6 [facility] Lipid Panelon 09-15-2022 Cholesterol [Mass/Vol] 162 mg/dL Normal 140-200 [facility] Comment on above: Result Comment: Chol less than 200 mg/dl low risk Chol 201-239 mg/dl borderline risk Chol 240 mg/dl and greater high risk Performed By: #### F OL, LIPID, B12 #### [facility] [address] [place] [address] [place] Cholesterol in HDL [Mass/Vol] 64 mg/dL Normal 23-92 [facility] Comment on above: Result Comment: HDL CHOL ATP-III CLASSIFICATION Cardiovascular Risk HDL > or equal to 60 mg/dL LOW HDL < 40 mg/dL HIGH Performed By: #### F OL, LIPID, B12 #### [facility] [address] [place] [address] [place] Cholesterol.total/Cho lesterol in HDL [Mass ratio] 2.5 {ratio} Normal <5.0 [facility] Comment on above: Performed By: #### F OL, LIPID, B12 #### [facility] [address] [place] [id number] [place] LDL Cholesterol,Calculate d 66 mg/dL Normal 0-100 [facility] Comment on above: Result Comment: LDL ATP III CLASSIFICATION LDL less than 100 mg/dL Optimal LDL 100-129 mg/dL Near or above optimal LDL 130-159 mg/dL Borderline high LDL 160-189 mg/dL High LDL greater than 189 mg/dL Very high Performed By: #### F OL, LIPID, B12 #### [facility] [address] Triglyceride w/Reflex 162 mg/dL High 0-149 [facility] Comment on above: Result Comment: TRIG ATP III CLASSIFICATION TRIG less than 150 mg/dL Normal TRIG 150-199 mg/dL Borderline high TRIG 200-500 mg/dL High TRIG greater than 500 mg/dL Very high Standard traceable to the Center for Disease Conrtrol and Prevention (CDC) test method. Performed By: #### F OL, LIPID, B12 #### [facility] [address] VLDL CHOLESTEROL 32 mg/dL Normal [facility] Comment on above: Performed By: #### F OL, LIPID, B12 #### [facility] [address] [place] [address] Lymphocytes Auto (Bld) [#/Vo l]Ordered By: Roma Pritchard on 09-15-2022 Lymphocytes (Bld) [#/Vol] 1.2 10*3/uL 1.00-4.8 [facility] Lymphocytes/100 WBC Auto (Bl d)Ordered By: Roma Pritchard on 09-15-2022 Lymphocytes/100 WBC (Bld) 19.7 % . [facility] MCH Auto (RBC) [Entitic mass ]Ordered By: Roma Pritchard on 09-15-2022 MCH (RBC) [Entitic mass] 29.5 pg 24.7-34.3 [facility] MCHC Auto (RBC) [Mass/Vol]Or dered By: Roma Pritchard on 09-15-2022 MCHC (RBC) [Mass/Vol] 32.8 g/dL 32.0-35.0 [facility] MCV Auto (RBC) [Entitic vol] Ordered By: Roma Pritchard on 09-15-2022 MCV (RBC) [Entitic vol] 89.7 fL 80-100 [facility] Monocytes Auto (Bld) [#/Vol] Ordered By: Roma Pritchard on 09-15-2022 Monocytes (Bld) [#/Vol] 0.4 10*3/uL 0.0-0.8 [facility] Monocytes/100 WBC Auto (Bld) Ordered By: Roma Pritchard on 09-15-2022 Monocytes/100 WBC (Bld) 7.1 % . [facility] Neutrophils Auto (Bld) [#/Vo l]Ordered By: Roma Pritchard on 09-15-2022 Neutrophils (Bld) [#/Vol] 4.3 10*3/uL 1.8-7.7 [facility] Neutrophils/100 WBC Auto (Bl d)Ordered By: Roma Pritchard on 09-15-2022 Neutrophils/100 WBC (Bld) 70.5 % . [facility] Nicotine [Mass/volume] in Se rum or PlasmaOrdered By: Ar Herman on 09-15-2022 Nicotine [Mass/Vol] <1.0 ng/mL . [facility] Comment on above: This test was develo ped and its performance characteristicsdetermined by [facility]. It has not been cleared orapproved by the Food and Drug Administration.Nicotine levels greater than 2.0 are consistent with theuse of tobacco or tobacco cessation products. Nicotine/Cotinine Bloodon Cotinine, Blood <1.[address] [facility] Comment on above: Order Comment: 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;Other termination clerk (current) drug therap Result Comment: This test was developed and its performance characteristics determined by [facility]. It has not been cleared or approved by the Food and Drug Administration. Cotinine levels greater than 20.0 are consistent with the use of tobacco or tobacco cessation products. Performed at: [facility] [address] [id number] Volunteer Services Manager: Keshia Duron MD, Phone: [phone] PERFORMED BY: [place] [address] PATHOLOGIST GARDENING INSTRUCTOR CIRA GRAHAM M.D. Performed By: #### A 1C WTH e[place] #### [place] [address] [place] #### NICOTINE #### [facility] , Nicotine, Blood <1.[address] [facility] Comment on above: Order Comment: 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;Other termination clerk (current) drug therap Result Comment: This test was developed and its performance characteristics determined by [facility]. It has not been cleared or approved by the Food and Drug Administration. Nicotine levels greater than 2.0 are consistent with the use of tobacco or tobacco cessation products. Performed By: #### A 1C [facility] #### [facility] [address] [place] [address] #### NICOTINE #### [facility] , No Panel InformationOrdered By: Roma Pritchard on 09-15-2022 Estimated GFR (CKD-EPI) > 60.0 mL/Min [facility] Creatinine Clearance (Chem N/A [facility] Nucleated erythrocytes [Pres ence] in Blood by Automated countOrdered By: Roma Pritchard on 09-15-2022 Nucleated RBC Auto Ql (Bld) 0.2 /100{WBC} 0-0.5 [facility] Platelet mean volume Auto (B ld) [Entitic vol]Ordered By: Roma Pritchard on 09-15-2022 Platelet mean volume (Bld) [Entitic vol] 9.9 fL 6.3-10.7 [facility] Platelets Auto (Bld) [#/Vol] Ordered By: Roma Pritchard on 09-15-2022 Platelets (Bld) [#/Vol] 252 10*3/uL 150-450 [facility] Potassium [Moles/volume] in Serum or PlasmaOrdered By: Roma Pritchard on 09-15-2022 Potassium [Moles/Vol] 3.9 mmol/L 3.5-5.1 [facility] Protein [Mass/volume] in Ser um or PlasmaOrdered By: Roma Pritchard on 09-15-2022 Protein [Mass/Vol] 6.8 g/dL 6.4-8.9 [facility] RBC Auto (Bld) [#/Vol]Ordere d By: Roma Pritchard on 09-15-2022 RBC (Bld) [#/Vol] 3.96 10*6/uL 3.60-5.00 [facility] Serum or plasma albumin/glob ulin mass ratioOrdered By: Roma Pritchard on 09-15-2022 Albumin/Globulin [Mass ratio] 1.8 {ratio} [facility] Serum or plasma anion gap de terminationOrdered By: Roma Pritchard on 09-15-2022 Anion gap [Moles/Vol] 10.8 mmol/L 6.0-15.0 [facility] Serum or plasma high density lipoprotein (HDL) cholesterol measurementOrdered By: Roma Pritchard on 09-15-2022 Cholesterol in HDL [Mass/Vol] 64 mg/dL 23 [facility] Comment on above: HDL CHOL ATP-III CLA SSIFICATION Cardiovascular RiskHDL > or equal to 60 mg/dL LOWHDL < 40 mg/dL HIGH Serum or plasma total choles terol/high density lipoprotein (HDL) cholesterol mass ratOrdered By: Roma Pritchard on 09-15-2022 Cholesterol.total/Cho lesterol in HDL [Mass ratio] 2.5 {ratio} <5.0 [facility] Sodium [Moles/volume] in Ser um or PlasmaOrdered By: Roma Pritchard on 09-15-2022 Sodium [Moles/Vol] 141 mmol/L 136-145 [facility] Triglyceride [Mass/volume] i n Serum or PlasmaOrdered By: Roma Pritchard on 09-15-2022 Triglyceride [Mass/Vol] 162 mg/dL 0-149 [facility] Comment on above: TRIG ATP III CLASSIF ICATIONTRIG less than 150 mg/dL NormalTRIG 150-199 mg/dL Borderline highTRIG 200-500 mg/dL High TRIG greater than 500 mg/dL Very highStandard traceable to the Center for Disease Conrtrol and Prevention (CDC) test method. Urea nitrogen [Mass/volume] in Serum or PlasmaOrdered By: Roma Pritchard on 09-15-2022 Urea nitrogen [Mass/Vol] 23 mg/dL 7-25 [facility] Vitamin B12on 09-15-2022 Cobalamin (Vitamin B12) [Mass/Vol] 409 pg/mL Normal 180-914 [facility] Comment on above: Performed By: #### F OL, LIPID, B12 #### [address] Vitamin B12 ser/plasOrdered By: Roma Pritchard on 09-15-2022 Cobalamin (Vitamin B12) [Mass/Vol] 409 pg/mL 180-914 [facility] Vitamin D 25 Hydroxy Totalon 09-15-2022 Vitamin D 25 Hydroxy Total 28.1 ng/mL Low 30-100 [facility] Comment on above: Order Comment: 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;Other retirement (current) drug therap Result Comment: AMBIKA MIN D STATUS 25(OH)VITAMIN D RANGE (ng/mL) Deficient <20 Insufficient 20 to <30 Sufficient 30 to 100 Reference: Salo Loera, Iqra PAGE, et al. Evaluation,treatment, and prevention of vitamin D deficiency; an Endocrine Society clinical practice guideline. JCEM. 2010; 96(7):1911-. PERFORMED BY: [place] [address] PATHOLOGIST GARDENING INSTRUCTOR CIRA GRAHAM M.D. Performed By: #### A 1C [facility] #### [address] #### NICOTINE #### [facility] , Vitamin D+Metabolites [Mass/ volume] in Serum or PlasmaOrdered By: Roma Pritchard on 09-15-2022 Vitamin D+Metabolites [Mass/Vol] 28.1 ng/mL 30-100 [facility] Comment on above: VITAMIN D STATUS 25( OH)VITAMIN D RANGE (ng/mL) Deficient <20 Insufficient 20 to <30Sufficient 30 to 100Reference: Salo Loera, Iqra PAGE, et al. Evaluation,treatment, and prevention of vitamin D deficiency; an Endocrine Society clinical practice guideline. JCEM. 2010; 96(7):1911-30. WBC Auto (Bld) [#/Vol]Ordere d By: Roma Pritchard on 09-15-2022 WBC (Bld) [#/Vol] 6.2 10*3/uL 3.8-11.6 [facility] US THYROIDon 04-15-2022 US THYROID EXAMINATION: US [...] by: PAIGE CLAYTON Date: 2022-04-15 08:09 Normal [facility] XR CSPINE MIN 4 VIEWSon 03-26 [...] by: PAIGE CLAYTON Date: 2022-04-04 12:31 Normal [facility] Albumin [Mass/volume] in Ser um or PlasmaOrdered By: Roma Pritchard on 03-28-2022 Albumin [Mass/Vol] 3.8 g/dL 3.2-5.5 [facility] Automated erythrocytes count in urine sediment (number/area)Ordered By: Roma Pritchard on 03-28-2022 RBC Auto (Urine sed) [#/Area] 3-4 [HPF] 0-4 [facility] Automated leukocytes count i n urine sediment (number/area)Ordered By: Roma Pritchard on 03-28-2022 WBC Auto (Urine sed) [#/Area] 20-49 [HPF] 0-4 [facility] Automated urine sediment claudia cium oxalate crystal count by microscopy (number/high powOrdered By: Roma Pritchard on 03-28-2022 Calcium oxalate crystals LM.HPF (Urine sed) [#/Area] 1+ [HPF] [facility] Basophils Auto (Bld) [#/Vol] Ordered By: Roma Pritchard on 03-28-2022 Basophils (Bld) [#/Vol] 0.0 10*3/uL 0.0-0.2 [facility] Basophils/100 WBC Auto (Bld) Ordered By: Roma Pritchard on 03-28-2022 Basophils/100 WBC (Bld) 0.6 % . [facility] Bilirubin Test strip Ql (U)O rdered By: Roma Pritchard on 03-28-2022 Bilirubin Ql (U) Negative Negative [facility] biopsyOrdered By: Roma hidalgo on 03-28-2022 Transferrin [Mass/Vol] 333 mg/dL 180-380 [facility] Cholesterol [Mass/volume] in Serum or PlasmaOrdered By: Roma Pritchard on 03-28-2022 Cholesterol [Mass/Vol] 186 mg/dL 140-200 [facility] Comment on above: Chol less than 200 m g/dl low riskChol 201-239 mg/dl borderline riskChol 240 mg/dl and greater high risk Cholesterol in LDL Calc [Mas s/Vol]Ordered By: Roma Pritchard on 03-28-2022 Cholesterol in LDL [Mass/Vol] 84 mg/dL 0-100 [facility] Comment on above: LDL ATP III CLASSIFI CATIONLDL less than 100 mg/dL OptimalLDL 100-129 mg/dL Near or above optimalLDL 130-159 mg/dL Borderline highLDL 160-189 mg/dL HighLDL greater than 189 mg/dL Very high Cholesterol in VLDL Calc [Ma ss/Vol]Ordered By: Roma Pritchard on 03-28-2022 Cholesterol in VLDL [Mass/Vol] 26 mg/dL [facility] Color Auto (U)Ordered By: Radu Pritchard on 03-28-2022 Color (U) Yellow Yellow [facility] Creatinine and Glomerular fi ltration rate.predicted panel (S/P/Bld)Ordered By: Roma Pritchard on 03-28-2022 Creatinine [Mass/Vol] 0.77 mg/dL 0.44-1.03 [facility] Eosinophils Auto (Bld) [#/Vo l]Ordered By: Roma Pritchard on 03-28-2022 Eosinophils (Bld) [#/Vol] 0.1 10*3/uL 0.0-0.45 [facility] Eosinophils/100 WBC Auto (Bl d)Ordered By: Roma Pritchard on 03-28-2022 Eosinophils/100 WBC (Bld) 2.0 % . [facility] Erythrocyte distribution wid th Auto (RBC) [Ratio]Ordered By: Roma Pritchard on 03-28-2022 Erythrocyte distribution width (RBC) [Ratio] 14.0 % 11.9-15.3 [facility] Estimated glomerular filtrat ion rate (GFR) non- AmericanOrdered By: Roma Pritchard on 03-28-2022 GFR/1.73 sq M.predicted among non-blacks MDRD (S/P/Bld) [Vol rate/Area] > 60 mL/Min [facility] Ferritin [Mass/volume] in Se rum or PlasmaOrdered By: Roma Pritchard on 03-28-2022 Ferritin [Mass/Vol] 31.5 ng/mL 11-306.8 [facility] Folate [Mass/volume] in Seru m or PlasmaOrdered By: Roma Pritchard on 03-28-2022 Folate [Mass/Vol] 13.6 ng/mL >5.9 [facility] Comment on above: Folate reference ran ge: >5.9 ng/mlThe WHO technical consultation on folate and vitamin [id number] has determined that folate concentrations lessthan 4 ng/ml are considered deficient. Globulin Calc (S) [Mass/Vol] Ordered By: Roma Pritchard on 03-28-2022 Globulin (S) [Mass/Vol] 2.4 g/dL [facility] Hematocrit Auto (Bld) [Volum e fraction]Ordered By: Roma Pritchard on 03-28-2022 Hematocrit (Bld) [Volume fraction] 41.2 % 34.0-46.4 [facility] Hemoglobin [Mass/volume] in BloodOrdered By: Roma Pritchard on 03-28-2022 Hemoglobin (Bld) [Mass/Vol] 13.3 g/dL 11.8-15.4 [facility] Iron [Mass/volume] in Serum or PlasmaOrdered By: Roma Pritchard on 03-28-2022 Iron [Mass/Vol] 82 ug/dL 40-150 [facility] Iron binding capacity [Mass/ volume] in Serum or PlasmaOrdered By: Roma Pritchard on 03-28-2022 Iron binding capacity [Mass/Vol] 466 ug/dL 255-450 [facility] Iron saturation [Mass Fracti on] in Serum or PlasmaOrdered By: Roma Pritchard on 03-28-2022 Iron saturation [Mass fraction] 17.6 % 20-50 [facility] Ketones Auto test strip (U) [Mass/Vol]Ordered By: Roma Pritchard on 03-28-2022 Ketones (U) [Mass/Vol] Negative Negative [facility] Laboratory - Chemistry and C hemistry - challengeOrdered By: Roma Pritchard on 03-28-2022 Cobalamin (Vitamin B12) [Mass/Vol] 540 pg/mL 180-914 [facility] Laboratory - UrinalysisOrder ed By: Roma Pritchard on 03-28-2022 Hyaline casts LM Ql (Urine sed) 0-8 [LPF] 0-8 [facility] Leukocytes [#/volume] correc dinora for nucleated erythrocytes in Blood by Automated counOrdered By: Roma Pritchard on 03-28-2022 WBC corrected for nucl RBC Auto (Bld) [#/Vol] 7.0 10*3/uL 3.8-11.6 [facility] Lymphocytes Auto (Bld) [#/Vo l]Ordered By: Roma Pritchard on 03-28-2022 Lymphocytes (Bld) [#/Vol] 1.8 10*3/uL 1.00-4.8 [facility] Lymphocytes/100 WBC Auto (Bl d)Ordered By: Roma Pritchard on 03-28-2022 Lymphocytes/100 WBC (Bld) 25.7 % . [facility] MCH Auto (RBC) [Entitic mass ]Ordered By: Roma Pritchard on 03-28-2022 MCH (RBC) [Entitic mass] 29.8 pg 24.7-34.3 [facility] MCHC Auto (RBC) [Mass/Vol]Or dered By: Roma Pritchard on 03-28-2022 MCHC (RBC) [Mass/Vol] 32.3 g/dL 32.0-35.0 [facility] MCV Auto (RBC) [Entitic vol] Ordered By: Roma Pritchard on 03-28-2022 MCV (RBC) [Entitic vol] 92.1 fL 80-100 [facility] Monocytes Auto (Bld) [#/Vol] Ordered By: Roma Pritchard on 03-28-2022 Monocytes (Bld) [#/Vol] 0.3 10*3/uL 0.0-0.8 [facility] Monocytes/100 WBC Auto (Bld) Ordered By: Roma Pritchard on 03-28-2022 Monocytes/100 WBC (Bld) 4.5 % . [facility] Neutrophils Auto (Bld) [#/Vo l]Ordered By: Roma Pritchard on 03-28-2022 Neutrophils (Bld) [#/Vol] 4.7 10*3/uL 1.8-7.7 [facility] Neutrophils/100 WBC Auto (Bl d)Ordered By: Roma Pritchard on 03-28-2022 Neutrophils/100 WBC (Bld) 67.2 % . [facility] Nitrite Test strip Ql (U)Ord ered By: Roma Pritchard on 03-28-2022 Nitrite Ql (U) Negative Negative [facility] No Panel InformationOrdered By: Roma Pritchard on 03-28-2022 25-Hydroxy Vitamin D Total 41.1 ng/mL 30-100 [facility] Comment on above: VITAMIN D STATUS 25( OH)VITAMIN D RANGE (ng/mL) Deficient <20 Insufficient 20 to <30Sufficient 30 to 100Reference: Bro MF,Salo NC, Iqra PAGE, et al. Evaluation,treatment, and prevention of vitamin D deficiency; an Endocrine Society clinical practice guideline. JCEM. 2010; 96(7):1911-30. Estimated GFR () > 60 mL/Min [facility] Comment on above: GFR estimated refere nce range: According to KDOQI guidelines, <60 ml/min/1.73m2 is sufficient to diagnose a patient with chronic kidney disease. Pharmacy Creatinine Clearance (Chem N/A [facility] Nucleated erythrocytes [Pres ence] in Blood by Automated countOrdered By: Roma Pritchard on 03-28-2022 Nucleated RBC Auto Ql (Bld) 0.0 /100{WBC} 0-0.5 [facility] Platelet mean volume Auto (B ld) [Entitic vol]Ordered By: Roma Pritchard on 03-28-2022 Platelet mean volume (Bld) [Entitic vol] 9.6 fL 6.3-10.7 [facility] Platelets Auto (Bld) [#/Vol] Ordered By: Roma Pritchard on 03-28-2022 Platelets (Bld) [#/Vol] 213 10*3/uL 150-450 [facility] Protein Auto test strip (U) [Mass/Vol]Ordered By: Roma Pritchard on 03-28-2022 Protein (U) [Mass/Vol] Negative Negative [facility] Protein [Mass/volume] in Ser um or PlasmaOrdered By: Roma Pritchard on 03-28-2022 Protein [Mass/Vol] 6.2 g/dL 6.1-7.9 [facility] RBC Auto (Bld) [#/Vol]Ordere d By: Roma Pritchard on 03-28-2022 RBC (Bld) [#/Vol] 4.48 10*6/uL 3.60-5.00 [facility] Serum or plasma alanine hoff otransferase measurement without P-5'-P (enzymatic activiOrdered By: Roma Pritchard on 03-28-2022 ALT No additional P-5'-P [Catalytic activity/Vol] 23 U/L 10-60 [facility] Serum or plasma albumin/glob ulin mass ratioOrdered By: Roma Pritchard on 03-28-2022 Albumin/Globulin [Mass ratio] 1.6 {ratio} [facility] Serum or plasma alkaline apollo sphatase measurement (enzymatic activity/volume)Ordered By: Roma Pritchard on 03-28-2022 ALP [Catalytic activity/Vol] 60 U/L 32-92 [facility] Serum or plasma anion gap de terminationOrdered By: Roma Pritchard on 03-28-2022 Anion gap [Moles/Vol] 9.1 mmol/L 6.0-15.0 [facility] Serum or plasma aspartate am inotransferase measurement (enzymatic activity/volume)Ordered By: Roma Pritchard on 03-28-2022 AST [Catalytic activity/Vol] 17 U/L 10-42 [facility] Serum or plasma calcium carrie urement (mass/volume)Ordered By: Roma Pritchard on 03-28-2022 Calcium [Mass/Vol] 9.4 mg/dL 8.2-10.2 [facility] Serum or plasma chloride ritu surement (moles/volume)Ordered By: Roma Pritchard on 03-28-2022 Chloride [Moles/Vol] 104 mmol/L 95-114 [facility] Serum or plasma glucose carrie urement (mass/volume)Ordered By: Roma Pritchard on 03-28-2022 Glucose [Mass/Vol] 89 mg/dL 70-100 [facility] Comment on above: ADA recommended refe rence rangeRandom Glucose Reference Range is dependent on time and content of last meal. Glucose of more than 200 mg/dL in a nonstressed, ambulatory subject supports the diagnosis of Diabetes Mellitus. Serum or plasma high density lipoprotein (HDL) cholesterol measurementOrdered By: Roma Pritchard on 03-28-2022 Cholesterol in HDL [Mass/Vol] 76 mg/dL 35-85 [facility] Comment on above: HDL CHOL ATP-III CLA SSIFICATION Cardiovascular RiskHDL > or equal to 60 mg/dL LOWHDL < 40 mg/dL HIGH Serum or plasma potassium me asurement (moles/volume)Ordered By: oRma Pritchard on 03-28-2022 Potassium [Moles/Vol] 4.0 mmol/L 3.5-5.1 [facility] Serum or plasma sodium measu rement (moles/volume)Ordered By: Roma Pritchard on 03-28-2022 Sodium [Moles/Vol] 137 mmol/L 136-146 [facility] Serum or plasma total biliru bin measurement (mass/volume)Ordered By: Roma Pritchard on 03-28-2022 Bilirubin [Mass/Vol] 0.3 mg/dL 0.3-1.2 [facility] Serum or plasma total carbon dioxide measurement (moles/volume)Ordered By: Roma Pritchard on 03-28-2022 CO2 [Moles/Vol] 27.9 mmol/L 22.0-30.0 [facility] Serum or plasma total choles terol/high density lipoprotein (HDL) cholesterol mass ratOrdered By: Roma Pritchard on 03-28-2022 Cholesterol.total/Cho lesterol in HDL [Mass ratio] 2.4 {ratio} <5.0 [facility] Serum or plasma urea nitroge n measurement (mass/volume)Ordered By: Roma Pritchard on 03-28-2022 Urea nitrogen [Mass/Vol] 20 mg/dL 9- [facility] Specific gravity Auto test s trip (U) [Rel density]Ordered By: Roma Pritchard on 03-28-2022 Specific gravity (U) [Rel density] 1.019 1.001-1.[address] [facility] Squamous epithelial cells de tection in urine sediment by light microscopyOrdered By: Roma Pritchard on 03-28-2022 Epithelial cells.squamous LM Ql (Urine sed) 3-4 [HPF] 0-2 [facility] TSH DL <= 0.005 mIU/L QnOrde red By: Roma Pritchard on 03-28-2022 TSH Qn 1.25 m[IU]/L 0.45-5.33 [facility] Triglyceride [Mass/volume] i n Serum or PlasmaOrdered By: Roma Pritchard on 03-28-2022 Triglyceride [Mass/Vol] 132 mg/dL 35-149 [facility] Comment on above: TRIG ATP III CLASSIF ICATIONTRIG less than 150 mg/dL NormalTRIG 150-199 mg/dL Borderline highTRIG 200-500 mg/dL High TRIG greater than 500 mg/dL Very highStandard traceable to the Center for Disease Conrtrol and Prevention (CDC) test method. Urine bacteria detection by automated methodOrdered By: Roma Pritchard on 03-28-2022 Bacteria Auto Ql (U) None seen None Seen [facility] Urine clarity by refractomet ry automatedOrdered By: Roma Pritchard on 03-28-2022 Clarity Refractometry automated (U) Turbid Clear [facility] Urine glucose measurement by automated test strip (mass/volume)Ordered By: Roma Pritchard on 03-28-2022 Glucose Auto test strip (U) [Mass/Vol] Normal mg/dL Normal [facility] Urine hemoglobin detection b y automated test stripOrdered By: Roma Pritchard on 03-28-2022 Hemoglobin Auto test strip Ql (U) Negative Negative [facility] Urine leukocyte esterase det ection by automated test stripOrdered By: Roma Pritchard on 03-28-2022 Leukocyte esterase Auto test strip Ql (U) 3+ Negative [facility] Urine sediment crystal ident ification by light microscopyOrdered By: Roma Pritchard on 03-28-2022 Crystals LM Nom (Urine sed) None seen [HPF] [facility] Urobilinogen Auto test strip (U) [Mass/Vol]Ordered By: Roma Pritchard on 03-28-2022 Urobilinogen (U) [Mass/Vol] Normal mg/dL Normal [facility] WBC Auto (Bld) [#/Vol]Ordere d By: Roma Pritchard on 03-28-2022 WBC (Bld) [#/Vol] 7.0 10*3/uL 3.8-11.6 [facility] pH Auto test strip (U)Ordere d By: Roma Pritchard on 03-28-2022 pH (U) 5.5 [pH] 5.0-9.0 [facility] XR hip RT min 2V(w/wo pelvis )*on 03-05-2022 XR hip RT min 2V(w/wo pelvis)* [facility] [employer] Other XR hip RT min 2V(w/wo pelvis)* [facility] [employer] Other XR hip RT min 2V(w/wo pelvis)* [id number] [employer] Other XR hip RT min 2V(w/wo pelvis)* LETI Strickland [id number] [employer] Other XR hip RT min 2V(w/wo pelvis)* XRay Report [employer] Other XR hip RT min 2V(w/wo pelvis)* Signed [employer] Other XR hip RT min 2V(w/wo pelvis)* Patient: Teagan Gonsales MR#: [id number] [employer] Other XR hip RT min 2V(w/wo pelvis)* [id number] [employer] Other XR hip RT min 2V(w/wo pelvis)* : 1955 Acct:[id number] [employer] Other XR hip RT min 2V(w/wo pelvis)* Age/Sex: 66 / F ADM Date: 03/05/22 [employer] Other XR hip RT min 2V(w/wo pelvis)* Loc: [facility] Room: Type: [facility] [employer] Other XR hip RT min 2V(w/wo pelvis)* Attending Dr: Ar Herman II, MD [employer] Other XR hip RT min 2V(w/wo pelvis)* Copies to: Ar Herman MD [employer] Other XR hip RT min 2V(w/wo pelvis)* Ordering Provider: Ar Herman MD [employer] Other XR hip RT min 2V(w/wo pelvis)* Date of Service: 03/05/22 [employer] Other XR hip RT min 2V(w/wo pelvis)* XR/XR hip RT min 2V(w/wo pelvis)*: Right hip pain [employer] Other XR hip RT min 2V(w/wo pelvis)* RIGHT HIP - 2 views: [employer] Other XR hip RT min 2V(w/wo pelvis)* CLINICAL HISTORY: Lateral right hip pain for years with weakness. [employer] Other XR hip RT min 2V(w/wo pelvis)* COMPARISON: Hip series 01/19/2019 [employer] Other XR hip RT min 2V(w/wo pelvis)* FINDINGS: Moderate degenerative changes of both hips without acute bony process. Additional [employer] Other XR hip RT min 2V(w/wo pelvis)* degenerative changes involving the visualized lower lumbar spine and SI joints. [employer] Other XR hip RT min 2V(w/wo pelvis)* XR/XR hip RT min 2V(w/wo pelvis)* [employer] Other XR hip RT min 2V(w/wo pelvis)* IMPRESSION: [employer] Other XR hip RT min 2V(w/wo pelvis)* MODERATE DEGENERATIVE CHANGES OF BOTH HIPS WITHOUT ACUTE BONY PROCESS.. [employer] Other XR hip RT min 2V(w/wo pelvis)* Impression dictated by: Martin Ruano Jr., D.ONkechi03/05/2022 3:03 PM [employer] Other XR hip RT min 2V(w/wo pelvis)* Dictation Location: [place] [address] [employer] Other XR hip RT min 2V(w/wo pelvis)* Transcribed By: MITCH 03/05/22 [facility] [employer] Other XR hip RT min 2V(w/wo pelvis)* Dictated By: Martin Ruano Jr DO 03/05/22 [facility] [employer] Other XR hip RT min 2V(w/wo pelvis)* Signed By: [employer] Other XR hip RT min 2V(w/wo pelvis)* 03/05/22 [facility] [employer] Other XR KUB 1 VIEWon 12-30-2021 XR [...] by: ROMA BOUDREAUX Date: 2021-12-30 17:26 Normal [facility] Urine culture routineOrdered By: Roma Pritchard on 09-25-2021 Bacteria identified Cx Nom (U) [address] [facility] Automated erythrocytes count in urine sediment (number/area)Ordered By: Roma Pritchard on 09-23-2021 RBC Auto (Urine sed) [#/Area] 3-4 [HPF] 0-4 [facility] Automated leukocytes count i n urine sediment (number/area)Ordered By: Roma Pritchard on 09-23-2021 WBC Auto (Urine sed) [#/Area] 10-19 [HPF] 0-4 [facility] Automated urine sediment claudia cium oxalate crystal count by microscopy (number/high powOrdered By: Roma Pritchard on 09-23-2021 Calcium oxalate crystals LM.HPF (Urine sed) [#/Area] 2+ [HPF] [facility] Basophils Auto (Bld) [#/Vol] Ordered By: Roma Pritchard on 09-23-2021 Basophils (Bld) [#/Vol] 0.0 10*3/uL 0.0-0.2 [facility] Basophils/100 WBC Auto (Bld) Ordered By: Roma Pritchard on 09-23-2021 Basophils/100 WBC (Bld) 0.6 % . [facility] Bilirubin Auto test strip Ql (U)Ordered By: Roma Pritchard on 09-23-2021 Bilirubin Ql (U) Negative Negative [facility] Blood hemoglobin measurement (mass/volume)Ordered By: Roma Pritchard on 09-23-2021 Hemoglobin (Bld) [Mass/Vol] 13.5 g/dL 11.8-15.4 [facility] Blood leukocytes automated c ount (number/volume)Ordered By: Roma Pritchard on 09-23-2021 WBC (Bld) [#/Vol] 5.9 10*3/uL 4.5-11.0 [facility] Body fluid albumin measureme nt (mass/volume)Ordered By: Roma Pritchard on 09-23-2021 Albumin (Body fld) [Mass/Vol] 3.9 g/dL 3.2-5.[address] [facility] CT biopsyOrdered By: Roma hidalgo on 09-23-2021 Transferrin [Mass/Vol] 290 mg/dL 180-380 [facility] Cholesterol [Mass/volume] in Serum or PlasmaOrdered By: Roma Pritchard on 09-23-2021 Cholesterol [Mass/Vol] 158 mg/dL 140-200 [facility] Comment on above: Chol less than 200 m g/dl low risk Chol 201-239 mg/dl borderline risk Chol 240 mg/dl and greater high risk Cholesterol in LDL Calc [Mas s/Vol]Ordered By: Roma Pritchard on 09-23-2021 Cholesterol in LDL [Mass/Vol] 64 mg/dL 0-100 [facility] Comment on above: LDL ATP III CLASSIFI CATION LDL less than 100 mg/dL Optimal LDL 100-129 mg/dL Near or above optimal LDL 130-159 mg/dL Borderline high LDL 160-189 mg/dL High LDL greater than 189 mg/dL Very high Cholesterol in VLDL Calc [Ma ss/Vol]Ordered By: Roma Pritchard on 09-23-2021 Cholesterol in VLDL [Mass/Vol] 39 mg/dL [facility] Creatinine and Glomerular fi ltration rate.predicted panel (S/P/Bld)Ordered By: Roma Pritchard on 09-23-2021 Creatinine [Mass/Vol] 0.64 mg/dL 0.44-1.03 [facility] Eosinophils Auto (Bld) [#/Vo l]Ordered By: Roma Pritchard on 09-23-2021 Eosinophils (Bld) [#/Vol] 0.2 10*3/uL 0.0-0.45 [facility] Eosinophils/100 WBC Auto (Bl d)Ordered By: Roma Pritchard on 09-23-2021 Eosinophils/100 WBC (Bld) 2.6 % . [facility] Erythrocyte distribution wid th Auto (RBC) [Ratio]Ordered By: Roma Pritchard on 09-23-2021 Erythrocyte distribution width (RBC) [Ratio] 12.7 % 11.9-15.3 [facility] Estimated glomerular filtrat ion rate (GFR) non- AmericanOrdered By: Roma Pritchard on 09-23-2021 GFR/1.73 sq M.predicted among non-blacks MDRD (S/P/Bld) [Vol rate/Area] > 60 mL/Min [facility] Ferritin [Mass/volume] in Se rum or PlasmaOrdered By: Roma Pritchard on 09-23-2021 Ferritin [Mass/Vol] 101.7 ng/mL 11-306.8 [facility] Folate [Mass/volume] in Seru m or PlasmaOrdered By: Roma Pritchard on 09-23-2021 Folate [Mass/Vol] 17.1 ng/mL >5.9 [facility] Comment on above: Folate reference ran ge: >5.9 ng/ml The WHO technical consultation on folate and vitamin b12 deficiencies has determined that folate concentrations less than 4 ng/ml are considered deficient. Globulin Calc (S) [Mass/Vol] Ordered By: Roma Pritchard on 09-23-2021 Globulin (S) [Mass/Vol] 2.3 g/dL [facility] Glucose mean value [Mass/vol ume] in Blood Estimated from glycated hemoglobinOrdered By: Roma Pritchard on 09-23-2021 Average glucose Estimated from glycated hemoglobin (Bld) [Mass/Vol] 120 mg/dL [facility] Hematocrit Auto (Bld) [Volum e fraction]Ordered By: Roma Pritchard on 09-23-2021 Hematocrit (Bld) [Volume fraction] 40.6 % 34.0-46.4 [facility] Hemoglobin A1c percentageOrd ered By: Roam Pritchard on 09-23-2021 HbA1c (Bld) [Mass fraction] 5.8 % 4.3-5.6 [facility] Comment on above: Increased risk for d iabetes: 5.7 - 6.4 diabetes: >6.4 glycemic control for adults with diabetes: <7.0 Iron [Mass/volume] in Serum or PlasmaOrdered By: Roma Pritchard on 09-23-2021 Iron [Mass/Vol] 98 ug/dL 40-150 [facility] Iron binding capacity [Mass/ volume] in Serum or PlasmaOrdered By: Roma Pritchard on 09-23-2021 Iron binding capacity [Mass/Vol] 406 ug/dL 255-450 [facility] Iron saturation [Mass Fracti on] in Serum or PlasmaOrdered By: Roma Pritchard on 09-23-2021 Iron saturation [Mass fraction] 24.0 % 20-50 [facility] Ketones Auto test strip (U) [Mass/Vol]Ordered By: Roma Prtichard on 09-23-2021 Ketones (U) [Mass/Vol] Negative Negative [facility] Laboratory - Chemistry and C hemistry - challengeOrdered By: Roma Pritchard on 09-23-2021 Cobalamin (Vitamin B12) [Mass/Vol] 648 pg/mL 180-914 [facility] Laboratory - Hematology and Cell countsOrdered By: Roma Pritchard on 09-23-2021 Nucleated RBC/100 WBC (Bld) [Ratio] 0.1 % 0-0.5 [facility] Laboratory - UrinalysisOrder ed By: Roma Pritchard on 09-23-2021 Hyaline casts LM Ql (Urine sed) 0-8 [LPF] 0-8 [facility] Lymphocytes Auto (Bld) [#/Vo l]Ordered By: Roma Pritchard on 09-23-2021 Lymphocytes (Bld) [#/Vol] 1.6 10*3/uL 1.00-4.8 [facility] Lymphocytes/100 WBC Auto (Bl d)Ordered By: Roma Pritchard on 09-23-2021 Lymphocytes/100 WBC (Bld) 27.3 % . [facility] MCH Auto (RBC) [Entitic mass ]Ordered By: Roma Pritchard on 09-23-2021 MCH (RBC) [Entitic mass] 31.0 pg 24.7-34.3 [facility] MCHC Auto (RBC) [Mass/Vol]Or dered By: Roma Pritchard on 09-23-2021 MCHC (RBC) [Mass/Vol] 33.3 g/dL 32.0-35.0 [facility] MCV Auto (RBC) [Entitic vol] Ordered By: Roma Pritchard on 09-23-2021 MCV (RBC) [Entitic vol] 93.1 fL 80-100 [facility] Monocytes Auto (Bld) [#/Vol] Ordered By: Roma Pritchard on 09-23-2021 Monocytes (Bld) [#/Vol] 0.5 10*3/uL 0.0-0.8 [facility] Monocytes/100 WBC Auto (Bld) Ordered By: Roma Pritchard on 09-23-2021 Monocytes/100 WBC (Bld) 8.6 % . [facility] Neutrophils Auto (Bld) [#/Vo l]Ordered By: Roma Pritchard on 09-23-2021 Neutrophils (Bld) [#/Vol] 3.6 10*3/uL 1.8-7.7 [facility] Neutrophils/100 WBC Auto (Bl d)Ordered By: Roma Pritchard on 09-23-2021 Neutrophils/100 WBC (Bld) 60.9 % . [facility] No Panel InformationOrdered By: Roma Pritchard on 09-23-2021 25-Hydroxy Vitamin D Total 41.0 ng/mL 30-100 [facility] Comment on above: VITAMIN D STATUS 25( OH)VITAMIN D RANGE (ng/mL) Deficient <20 Insufficient 20 to <30 Sufficient 30 to 100 Reference: Bro MF,Salo NC, Iqra PAGE, et al. Evaluation,treatment, and prevention of vitamin D deficiency; an Endocrine Society clinical practice guideline. JCEM. 2010; 96(7):1911-30. Estimated GFR () > 60 mL/Min [facility] Comment on above: GFR estimated refere nce range: According to KDOQI guidelines, <60 ml/min/1.73m2 is sufficient to diagnose a patient with chronic kidney disease. Pharmacy Creatinine Clearance (Chem N/A [facility] Platelet mean volume Auto (B ld) [Entitic vol]Ordered By: Roma Pritchard on 09-23-2021 Platelet mean volume (Bld) [Entitic vol] 10.0 fL 6.3-10.7 [facility] Platelets Auto (Bld) [#/Vol] Ordered By: Roma Pritchard on 09-23-2021 Platelets (Bld) [#/Vol] 213 10*3/uL 150-450 [facility] Protein Auto test strip (U) [Mass/Vol]Ordered By: Roma Pritchard on 09-23-2021 Protein (U) [Mass/Vol] Negative Negative [facility] Protein [Mass/volume] in Ser um or PlasmaOrdered By: Roma Pritchard on 09-23-2021 Protein [Mass/Vol] 6.2 g/dL 6.1-7.9 [facility] RBC Auto (Bld) [#/Vol]Ordere d By: Roma Pritchard on 09-23-2021 RBC (Bld) [#/Vol] 4.36 10*6/uL 3.60-5.00 [facility] Serum or plasma alanine hoff otransferase measurement without P-5'-P (enzymatic activiOrdered By: Roma Pritchard on 09-23-2021 ALT No additional P-5'-P [Catalytic activity/Vol] 49 U/L 10-60 [facility] Serum or plasma albumin/glob ulin mass ratioOrdered By: Roma Pritchard on 09-23-2021 Albumin/Globulin [Mass ratio] 1.7 {ratio} [facility] Serum or plasma alkaline apollo sphatase measurement (enzymatic activity/volume)Ordered By: Roma Pritchard on 09-23-2021 ALP [Catalytic activity/Vol] 69 U/L 32-92 [facility] Serum or plasma aspartate am inotransferase measurement (enzymatic activity/volume)Ordered By: Roma Pritchard on 09-23-2021 AST [Catalytic activity/Vol] 29 U/L 10-42 [facility] Serum or plasma calcium carrie urement (mass/volume)Ordered By: Roma Pritchard on 09-23-2021 Calcium [Mass/Vol] 9.9 mg/dL 8.2-10.2 [facility] Serum or plasma chloride ritu surement (moles/volume)Ordered By: Roma Pritchard on 09-23-2021 Chloride [Moles/Vol] 102 mmol/L 95-114 [facility] Serum or plasma glucose carrie urement (mass/volume)Ordered By: Roma Pritchard on 09-23-2021 Glucose [Mass/Vol] 117 mg/dL 70-100 [facility] Comment on above: ADA recommended refe rence range Random Glucose Reference Range is dependent on time and content of last meal. Glucose of more than 200 mg/dL in a nonstressed, ambulatory subject supports the diagnosis of Diabetes Mellitus. Serum or plasma high density lipoprotein (HDL) cholesterol measurementOrdered By: Roma Pritchard on 09-23-2021 Cholesterol in HDL [Mass/Vol] 55 mg/dL 35-85 [facility] Comment on above: HDL CHOL ATP-III CLA SSIFICATION Cardiovascular Risk HDL > or equal to 60 mg/dL LOW HDL < 40 mg/dL HIGH Serum or plasma potassium me asurement (moles/volume)Ordered By: Roma Pritchard on 09-23-2021 Potassium [Moles/Vol] 4.0 mmol/L 3.5-5.1 [facility] Serum or plasma sodium measu rement (moles/volume)Ordered By: Roma Pritchard on 09-23-2021 Sodium [Moles/Vol] 140 mmol/L 136-146 [facility] Serum or plasma total biliru bin measurement (mass/volume)Ordered By: Roma Pritchard on 09-23-2021 Bilirubin [Mass/Vol] 0.5 mg/dL 0.3-1.2 [facility] Serum or plasma total carbon dioxide measurement (moles/volume)Ordered By: Roma Pritchard on 09-23-2021 CO2 [Moles/Vol] 25.2 mmol/L 22.0-30.0 [facility] Serum or plasma total choles terol/high density lipoprotein (HDL) cholesterol mass ratOrdered By: Roma Pritchard on 09-23-2021 Cholesterol.total/Cho lesterol in HDL [Mass ratio] 2.9 {ratio} <5.0 [facility] Serum or plasma urea nitroge n measurement (mass/volume)Ordered By: Roma Pritchard on 09-23-2021 Urea nitrogen [Mass/Vol] 14 mg/dL 9-23 [facility] Squamous epithelial cells de tection in urine sediment by light microscopyOrdered By: Roma Pritchard on 09-23-2021 Epithelial cells.squamous LM Ql (Urine sed) 3-4 [HPF] 0-2 [facility] Triglyceride [Mass/volume] i n Serum or PlasmaOrdered By: Roma Pritchard on 09-23-2021 Triglyceride [Mass/Vol] 196 mg/dL 35-149 [facility] Comment on above: TRIG ATP III CLASSIF ICATION TRIG less than 150 mg/dL Normal TRIG 150-199 mg/dL Borderline high TRIG 200-500 mg/dL High TRIG greater than 500 mg/dL Very high Standard traceable to the Center for Disease Conrtrol and Prevention (CDC) test method. Urine appearanceOrdered By: Roma Pritchard on 09-23-2021 Appearance (U) Cloudy Clear [facility] Urine bacteria detection by automated methodOrdered By: Roma Pritchard on 09-23-2021 Bacteria Auto Ql (U) 1+ None Seen [facility] Urine colorOrdered By: Roma Pritchard on 09-23-2021 Color (U) Yellow Yellow [facility] Urine glucose measurement by automated test strip (mass/volume)Ordered By: Roma Pritchard on 09-23-2021 Glucose Auto test strip (U) [Mass/Vol] Normal mg/dL Normal [facility] Urine hemoglobin detection b y automated test stripOrdered By: Roma Pritchard on 09-23-2021 Hemoglobin Auto test strip Ql (U) 1+ Negative [facility] Urine leukocyte esterase det ection by automated test stripOrdered By: Roma Pritchard on 09-23-2021 Leukocyte esterase Auto test strip Ql (U) 2+ Negative [facility] Urine nitrite detection by a utomated test stripOrdered By: Roma Pritchard on 09-23-2021 Nitrite Auto test strip Ql (U) Negative Negative [facility] Urine sediment crystal ident ification by light microscopyOrdered By: Roma Pritchard on 09-23-2021 Crystals LM Nom (Urine sed) None seen [HPF] [facility] Urobilinogen Auto test strip (U) [Mass/Vol]Ordered By: Roma Pritchard on 09-23-2021 Urobilinogen (U) [Mass/Vol] Normal mg/dL Normal [facility] pH Auto test strip (U)Ordere d By: Roma Pritchard on 09-23-2021 pH (U) 1.030 [pH] 1.001-1.[address] [facility] pH (U) 5.5 [pH] 5.0-9.0 [facility] XR abdomen min 2Von 11-15-20 21 XR abdomen min 2V [facility] [employer] Other XR abdomen min 2V [facility] [place] [facility] [employer] Other XR abdomen min 2V [id number] [facility] [employer] Other [place] [id number] [employer] Other XR abdomen min 2V XRay Report [employer] Other XR abdomen min 2V Signed [email or web address] Other XR abdomen min 2V Patient: William Gonsales MR#: [id number] [employer] Other XR abdomen min 2V [id number] [email or web address] Other XR abdomen min 2V : 1955 Acct:[id number] [employer] Other XR abdomen min 2V Age/Sex: 65 / F ADM Date: 01/07/21 [employer] Other XR abdomen min 2V Loc: XD Room: Type: [facility] [employer] Other XR abdomen min 2V Attending Dr: Roma Pritchard DO [employer] Other XR abdomen min 2V Ordering Provider: Carl Pritchard, [employer] Other XR abdomen min 2V Date of Service: 01/07/21 [employer] Other XR abdomen min 2V [id number]) XR/XR abdomen min 2V: K59.00 [employer] Other XR abdomen min 2V Copies to: Roma Pritchard DO [employer] Other XR abdomen min 2V 2 views of abdomen [employer] Other XR abdomen min 2V COMPARISON: 12/27/20 [employer] Other XR abdomen min 2V HISTORY: Increased stool. [employer] Other XR abdomen min 2V Nondistended air-cailin led small bowel loops identified. [employer] Other XR abdomen min 2V Reduction of stool identified. [employer] Other XR abdomen min 2V No abdominal calcifi cation identified. [employer] Other XR abdomen min 2V No soft tissue mass seen. 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 [employer] Other XR abdomen min 2V X R/XR abdomen min 2V [employer] Other XR abdomen min 2V IMPRESSION: No visib le nephrolithiasis. Reduction of stool. [employer] Other XR abdomen min 2V Impression dictated by: Jeevan Johnson M.D.01/07/2021 3:34 PM [employer] Other XR abdomen min 2V Dictation Location: [facility]-- [employer] Other XR abdomen min 2V Transcribed By: [facility] 01/07/21 [facility] [employer] Other XR abdomen min 2V Dictated By: Valdez Johnson DO 01/07/21 [facility] [employer] Other XR abdomen min 2V Signed By: [email or web address] Other XR abdomen min 2V 01/07/[address] [place] [address] [employer] Other Urinalysison 12-18-2020 Appearance (U) Clear Clear [employer] Other Color (U) Yellow Yellow [employer] Other Glucose Ql (U) Normal Normal [employer] Other Ketones Ql (U) Negative Negative [employer] Other Leukocyte esterase Test strip Ql (U) Negative Negative [employer] Other pH (U) 5.5 [pH] 5.0-9.0 [employer] Other Urinalysis 1.007 1.001-1.03 0 [employer] Other Urinalysis Normal Normal [employer] Other Urine 10 SGon 12-18-2020 Albumin DL <= 20 mg/L (U) [Mass/Vol] Negative [employer] Other pH (U) 5.0 [pH] [employer] Other Urine 10 SG Negative Negative [employer] Other Urine 10 SG 1.010 [employer] Other Urine 10 SG 0.2 [employer] Other Dermatopathologyon Dermatopathology [facility] Dermatopathology Laboratory [address] [place] [id number] DERMATOPATHOLOGY REPORT Name:TEAGAN GONSALES [facility]. Rec #. [id number] Location: [facility] Date of Procedure: 05/01/2020 Race: PT DECLINED Date Received: 05/03/2020 /Sex: 1955 (Age: 64) / F Date Reported: 05/04/2020 Other: Submitting Physician:LULA CARCAMO APRN, AUDITOR INTERNAL-C FINAL DIAGNOSIS SKIN, R EPISCOPALIAN, BIOPSY: INTERFACE DERMATITIS WITH BASAL LAYER KERATINOCYTE [...] M.D. Electronically Signed Out By INO FIGUEROA MD/[facility] By the signature on this report, the individual or group listed as making the Final Interpretation/Diagnosis certifies that they have reviewed this case. Clinical History: 2.1 x 1.9 cm. ISK vs Lupus vs other. Biopsy. Specimens Submitted As: A: SKIN, R EPISCOPALIAN Gross Description: Received in formalin is a salas piece of skin measuring [id number]. The specimen is inked and embedded in toto. dcp/05/03/2020 Normal [facility] Comment on above: Performed By: #### D #### Dermatopathology [facility] 08-02-2018 [facility] Letter Text Normal [facility] Vital Signs Date Time Vital Sign Value Performing Clinician Facility 04-02-2023 08:10-0500 Body height 157.48 cm Roma Ermacarmen Other [employer] Other 04-02-2023 08:10-0500 Body mass index (BMI) [Ratio] 26.34 kg/m2 Roma Ermacarmen Other [employer] Other 04-02-2023 08:10-0500 Body temperature 98.8 [degF] Roma Ermacarmen Other [employer] Other 04-02-2023 08:10-0500 Body weight 65.32 kg Roma Ermacarmen Other [employer] Other 04-02-2023 08:10-0500 Diastolic blood pressure 80 mm[Hg] Roma Pritchard Other [employer] Other 04-02-2023 08:10-0500 Respiratory rate 16 /min Roma Pritchard Other [employer] Other 04-02-2023 08:10-0500 SaO2% (BldA) [Mass fraction] 95 % Roma Pritchard Other [employer] Other 04-02-2023 08:10-0500 Systolic blood pressure 128 mm[Hg] Roma Pritchard Other [employer] Other 03-09-2023 11:00-0500 Body height 157.48 cm Tanna Wilson Other [employer] Other 03-09-2023 11:00-0500 Body mass index (BMI) [Ratio] 26.52 kg/m2 Tanna Wilson Other [employer] Other 03-09-2023 11:00-0500 Body weight 65.77 kg Tanna Wilson Other [employer] Other 03-09-2023 11:00-0500 Diastolic blood pressure 89 mm[Hg] Tanna Wilson Other [employer] Other 03-09-2023 11:00-0500 SaO2% (BldA) [Mass fraction] 97 % Tanna Wilson Other [employer] Other 03-09-2023 11:00-0500 Systolic blood pressure 149 mm[Hg] Tanna Wilson Other [employer] Other 03-03-2023 08:15-0500 Body height 157.48 cm Colby Shaffer Other [employer] Other 03-03-2023 08:15-0500 Body mass index (BMI) [Ratio] 26.34 kg/m2 Colby Shaffer Other [employer] Other 03-03-2023 08:15-0500 Body weight 65.32 kg Colby Shaffer Other [facility] [employer] Other 01-06-2023 08:15-0500 Blood Pressure Location MARIANA AD [facility] 01-06-2023 08:15-0500 Diastolic blood pressure 79 mm[Hg] MARIANA AD [facility] 01-06-2023 08:15-0500 Heart rate 75 /min MARIANA AD [facility] 01-06-2023 08:15-0500 Respiratory rate 16 /min MARIANA AD [facility] 01-06-2023 08:15-0500 Systolic blood pressure 127 mm[Hg] MARIANA AD [facility] 12-31-2022 10:30-0500 Body height 157.48 cm Roma Pritchard Other [facility] [employer] Other 11-04-2022 12:20-0400 Diastolic blood pressure 77 mm[Hg] DO Roma Pritchard Work Phone: [facility] 11-04-2022 12:20-0400 Heart rate 74 /min DO Roma Pritchard Work Phone: [facility] 11-04-2022 12:20-0400 Respiratory rate 16 /min DO Roma Pritchard Work Phone: [facility] 11-04-2022 12:20-0400 SaO2% (BldA) [Mass fraction] 98 % DO Roma Pritchard Work Phone: [facility] 11-04-2022 12:20-0400 Systolic blood pressure 122 mm[Hg] DO Roma Pritchard Work Phone: [facility] 11-04-2022 10:51-0400 Body temperature 97.4 [degF] DO Roma Pritchard Work Phone: [facility] 11-04-2022 10:11-0400 Inhaled oxygen flow rate 3 L/min DO Roma Pritchard Work Phone: [facility] 11-04-2022 07:41-0400 Body height 160.02 cm DO Roma Pritchard Work Phone: [facility] 11-04-2022 07:41-0400 Body mass index (BMI) [Ratio] 24.5 kg/m2 DO Roma Pritchard Work Phone: [facility] 11-04-2022 07:41-0400 Body weight 63 kg DO Roma Pritchard Work Phone: [facility] 10-23-2022 09:30-0400 Body height 157.48 cm Ar Virgil II Other [facility] [employer] Other 10-23-2022 09:30-0400 Body mass index (BMI) [Ratio] 25.6 kg/m2 Ar [place] II Other [employer] Other 10-23-2022 09:30-0400 Body weight 63.5 kg Ar [place] II Other [employer] Other 06-26-2022 10:10-0400 Body height 157.48 cm Roma Pritchard Other [employer] Other 06-26-2022 10:10-0400 Body mass index (BMI) [Ratio] 25.79 kg/m2 Roma Pritchard Other [employer] Other 06-26-2022 10:10-0400 Body weight 63.96 kg Roma Ermacarmen Other [employer] Other 06-26-2022 10:10-0400 Diastolic blood pressure 82 mm[Hg] Roma Pritchard Other [employer] Other 06-26-2022 10:10-0400 Systolic blood pressure 125 mm[Hg] Roma Pritchard Other [employer] Other 04-02-2022 10:10-0500 Body height 157.48 cm Roma Pritchard Other [employer] Other 04-02-2022 10:10-0500 Body mass index (BMI) [Ratio] 26.98 kg/m2 Roma Pritchard Other [employer] Other 04-02-2022 10:10-0500 Body temperature 96.7 [degF] Roma Pritchard Other [employer] Other 04-02-2022 10:10-0500 Body weight 66.91 kg Roma Pritchard Other [employer] Other 04-02-2022 10:10-0500 Diastolic blood pressure 86 mm[Hg] Roma Pritchard Other [employer] Other 04-02-2022 10:10-0500 Respiratory rate 18 /min Roma Pritchard Other [employer] Other 04-02-2022 10:10-0500 SaO2% (BldA) [Mass fraction] 97 % Roma Pritchard Other [employer] Other 04-02-2022 10:10-0500 Systolic blood pressure 132 mm[Hg] Roma Pritchard Other [employer] Other 03-05-2022 10:00-0500 Body height 157.48 cm Ar [place] II Other [employer] Other 03-05-2022 10:00-0500 Body mass index (BMI) [Ratio] 26.88 kg/m2 Ar [place] II Other [employer] Other 03-05-2022 10:00-0500 Body weight 66.68 kg Ar Garciaisle II Other [employer] Other 02-25-2022 11:15-0500 Body height 157.48 cm Tanna Wilson Other [employer] Other 02-25-2022 11:15-0500 Body mass index (BMI) [Ratio] 26.88 kg/m2 Tanna Wilson Other [employer] Other 02-25-2022 11:15-0500 Body temperature 96.8 [degF] Tanna Wilson Other [employer] Other 02-25-2022 11:15-0500 Body weight 66.68 kg Tanna Wilson Other [employer] Other 02-25-2022 11:15-0500 Diastolic blood pressure 83 mm[Hg] Tanna Wilson Other [employer] Other 02-25-2022 11:15-0500 SaO2% (BldA) [Mass fraction] 96 % Tanna Wilson Other [employer] Other 02-25-2022 11:15-0500 Systolic blood pressure 147 mm[Hg] Tanna Wilson Other [employer] Other 12-31-2021 10:10-0500 Body height 157.48 cm Roma Pritchard Other [employer] Other 10-02-2021 09:10-0400 Body height 157.48 cm Roma Pritchard Other [employer] Other 10-02-2021 09:10-0400 Body mass index (BMI) [Ratio] 27.36 kg/m2 Roma Pritchard Other [employer] Other 10-02-2021 09:10-0400 Body weight 67.86 kg Roma Pritchard Other [employer] Other 10-02-2021 09:10-0400 Diastolic blood pressure 86 mm[Hg] Roma Pritchard Other [employer] Other 10-02-2021 09:10-0400 Systolic blood pressure 123 mm[Hg] Roma Pritchard Other [employer] Other 06-26-2021 09:50-0400 Body height 157.48 cm Roma Pritchard Other [employer] Other 05-07-2021 09:30-0400 Body height 157.48 cm Tanna Wilson Other [employer] Other 05-07-2021 09:30-0400 Body mass index (BMI) [Ratio] 28.44 kg/m2 Tanna Wilson Other [employer] Other 05-07-2021 09:30-0400 Body temperature 97.1 [degF] Tanna Wilson Other [employer] Other 05-07-2021 09:30-0400 Body weight 70.53 kg Tanna Wilson Other [employer] Other 05-07-2021 09:30-0400 Diastolic blood pressure 85 mm[Hg] Tanna Wilson Other [employer] Other 05-07-2021 09:30-0400 SaO2% (BldA) [Mass fraction] 97 % Tanna Wilson Other [employer] Other 05-07-2021 09:30-0400 Systolic blood pressure 128 mm[Hg] Tanna Wilson Other [employer] Other 04-19-2021 11:45-0500 Body height 157.48 cm Megan Asencio Other [employer] Other 04-19-2021 11:45-0500 Body mass index (BMI) [Ratio] 27.62 kg/m2 Megan Asencio Other [employer] Other 04-19-2021 11:45-0500 Body weight 68.49 kg Megan Asencio Other [employer] Other 03-22-2021 09:10-0500 Body height 157.48 cm Roma Pritchard Other [employer] Other 03-22-2021 09:10-0500 Body mass index (BMI) [Ratio] 28.16 kg/m2 Roma Pritchard Other [employer] Other 03-22-2021 09:10-0500 Body temperature 97.6 [degF] Roma Pritchard Other [employer] Other 03-22-2021 09:10-0500 Body weight 69.85 kg Roma Pritchard Other [employer] Other 03-22-2021 09:10-0500 Diastolic blood pressure 78 mm[Hg] Roma Pritchard Other [employer] Other 03-22-2021 09:10-0500 Respiratory rate 16 /min Roma Pritchard Other [employer] Other 03-22-2021 09:10-0500 SaO2% (BldA) [Mass fraction] 99 % Roma Pritchard Other [employer] Other 03-22-2021 09:10-0500 Systolic blood pressure 122 mm[Hg] Roma Pritchard Other [employer] Other 12-18-2020 09:10-0400 Body height 157.48 cm Roma Pritchard Other [employer] Other 12-18-2020 09:10-0400 Body mass index (BMI) [Ratio] 28.16 kg/m2 Roma Pritchard Other [employer] Other 12-18-2020 09:10-0400 Body temperature 97.3 [degF] Roma Pritchard Other [employer] Other 12-18-2020 09:10-0400 Body weight 69.85 kg Roma Pritchard Other [employer] Other 12-18-2020 09:10-0400 Diastolic blood pressure 84 mm[Hg] Roma Pritchard Other [employer] Other 12-18-2020 09:10-0400 Respiratory rate 18 /min Roma Pritchard Other [employer] Other 12-18-2020 09:10-0400 SaO2% (BldA) [Mass fraction] 97 % Roma Pritchard Other [employer] Other 12-18-2020 09:10-0400 Systolic blood pressure 122 mm[Hg] Roma Pritchard Other [employer] Other Encounters Encounter Date Encounter Type Care Provider Facility Start: 01-12-2024 ambulatory MARIANA Alex AD Facili ty:[facility] Start: 05-27-2023 ambulatory MARIANA Alex AD Facili ty:[facility] Start: 05-07-2023 End: 05-07-2023 ambulatory BLAYNE MORALES Not Available Start: 05-04-2023 End: 05-04-2023 ambulatory LULA CARCAMO Not Available Start: 04-02-2023 End: 04-02-2023 ambulatory Roma Pritchard Other [employer] Other Start: 04-02-2023 Office outpatient vi sit 25 minutes Roma Pritchard [facility] Family [facility] [place] Start: 03-25-2023 End: 03-25-2023 ambulatory Roma Pritchard Facility:[facility] Start: 03-25-2023 End: 03-25-2023 ambulatory DO Roma Pritchard Work Phone: [facility] Work Phone: Start: 03-25-2023 End: 03-25-2023 Patient encounter procedure DO Roma Pritchard Work Phone: [facility] [place] Work Phone: Start: 03-09-2023 Office outpatient vi sit 15 minutes Tanna Wilson [facility] Start: 03-09-2023 End: 03-09-2023 ambulatory Roma Pritchard Facility:[facility] Start: 03-09-2023 End: 03-09-2023 ambulatory DO Roma Pritchard Work Phone: [facility] Work Phone: Start: 03-09-2023 End: 03-09-2023 Patient encounter procedure DO Roma Ritchiecarmen Work Phone: [facility]-Sleep Lab Work Phone: Start: 03-09-2023 End: 03-09-2023 Patient encounter procedure DO Roma Francheska Work Phone: [facility] Work Phone: Start: 03-04-2023 End: 03-04-2023 ambulatory Colby Shaffer Other [employer] Other Start: 03-04-2023 Telephone encounter Colby Shaffer [facility] Start: 03-03-2023 Office outpatient ne w 45 minutes Colby Shaffer [facility] Start: 03-03-2023 End: 03-03-2023 ambulatory DO Roma Pritchard Work Phone: [facility] Work Phone: Start: 03-03-2023 End: 03-03-2023 Patient encounter procedure DO Roma Pritchard Work Phone: [facility] Start: 03-03-2023 End: 03-03-2023 Patient encounter procedure DO Roma Francheska Work Phone: [facility] Work Phone: Start: 02-26-2023 End: 02-26-2023 ambulatory BLAYNE MORALES Not Available Start: 01-19-2023 End: 01-19-2023 ambulatory Roma Pritchard Facility:[facility] Start: 01-19-2023 End: 01-19-2023 ambulatory DO Roma Pritchard Work Phone: [facility] Work Phone: Start: 01-19-2023 End: 01-19-2023 Patient encounter procedure DO Roma Pritchard Work Phone: [facility] Work Phone: Start: 01-06-2023 End: 01-07-2023 ambulatory MARIANA DUONG Facility:[facility] Start: 01-06-2023 End: 01-06-2023 Patient encounter procedure MARIANA DUONG [facility] [place] Start: 01-01-2023 End: 01-01-2023 ambulatory Roma Ritchiecarmen Other [employer] Other Start: 01-01-2023 Telephone encounter Roma Pritchard [facility] Start: 12-31-2022 End: 12-31-2022 ambulatory Roma Pritchard Other [employer] Other Start: 12-31-2022 Telephone encounter Roma Pritchard [facility] Start: 12-31-2022 End: 12-31-2022 Patient encounter procedure DO Roma Pritchard Work Phone: [facility] Work Phone: Start: 12-26-2022 End: 12-26-2022 ambulatory Roma Ritchiecarmen Facility:[facility] Start: 12-26-2022 End: 12-26-2022 ambulatory DO Roma Francheska Work Phone: [facility] Work Phone: Start: 12-26-2022 End: 12-26-2022 Patient encounter procedure DO Roma Pritchard Work Phone: [facility] [place] Work Phone: Start: 12-17-2022 (Post-Op) Post-Op Ar Herman II [facility] Start: 12-17-2022 End: 12-17-2022 ambulatory Ar Herman II [facility] Other Start: 12-17-2022 End: 12-17-2022 Patient encounter procedure DO Roma Pritchard Work Phone: [facility] Start: 11-19-2022 (Post-Op) Post-Op Ar [place] II [facility] Start: 11-19-2022 End: 11-19-2022 ambulatory Ar Virgil II Other [employer] Other Start: 11-06-2022 End: 11-06-2022 ambulatory Ar [place] II Other [employer] Other Start: 11-06-2022 Telephone encounter Ar Garciaisle II [facility] Start: 11-04-2022 End: 11-04-2022 ambulatory Ar M [place] II Facility:[facility] Start: 11-04-2022 End: 11-04-2022 Admission to same day surgery center DO Roma Pritchard Work Phone: [facility] [place] Start: 10-29-2022 End: 10-29-2022 ambulatory Ar [place] II Other [employer] Other Start: 10-29-2022 Telephone encounter Ar Jacksonle II [facility] Start: 10-24-2022 (Prolonged) Prolonge d Services Ar [place] II [facility] Start: 10-24-2022 End: 10-24-2022 ambulatory Ar [place] II Other [employer] Other Start: 10-23-2022 Patient encounter procedure Ar [place] II [facility] Start: 10-23-2022 End: 10-23-2022 ambulatory Ar M [place] II Facility:[facility] Start: 10-23-2022 End: 10-23-2022 ambulatory DO Roma Pritchard Work Phone: [facility] Work Phone: Start: 10-23-2022 End: 10-23-2022 Discharged Recurring DO Roma Pritchard Work Phone: [facility]-Physical Therapy [place] Start: 10-17-2022 End: 10-17-2022 ambulatory Roma Ritchiecarmen Facility:[facility] Start: 10-17-2022 End: 10-17-2022 ambulatory DO Roma Francheska Work Phone: [facility] Work Phone: Start: 10-17-2022 End: 10-17-2022 Patient encounter procedure DO Roma Pritchard Work Phone: [facility]-Pre-Surgical Testing Work Phone: Start: 09-30-2022 End: 09-30-2022 ambulatory Roma Pritchard Other [employer] Other Start: 09-30-2022 Telephone encounter Roma Pritchard [facility] Start: 09-19-2022 End: 09-19-2022 ambulatory Roma Pritchard Other [employer] Other Start: 09-19-2022 Telephone encounter Roma Pritchard [facility] Start: 09-18-2022 End: 09-18-2022 ambulatory Ar Herman II Other [employer] Other Start: 09-18-2022 Telephone encounter Ar Herman II [facility] Start: 09-15-2022 End: 09-15-2022 ambulatory Roma Pritchard Facility:[facility] Start: 09-15-2022 End: 09-15-2022 Patient encounter procedure DO Roma Ermacarmen Work Phone: [facility] [place] Work Phone: Start: 09-10-2022 End: 09-10-2022 ambulatory Roma Pritchard Other [employer] Other Start: 09-10-2022 Telephone encounter [facility] Pritchard [facility] Start: 06-26-2022 End: 06-26-2022 ambulatory Roma Pritchard Other [employer] Other Start: 06-26-2022 Telephone encounter Roma Pritchard [facility] [place] Start: 06-12-2022 End: 06-12-2022 ambulatory Roma Pritchard Other [employer] Other Start: 06-12-2022 Telephone encounter Roma Pritchard [facility] [place] Start: 04-15-2022 End: 04-15-2022 ambulatory Roma Pritchard Other [employer] Other Start: 04-15-2022 Telephone encounter Roma Pritchard [facility] [place] Start: 04-11-2022 End: 04-12-[address] ROMA PRITCHARD Facility:[facility] Start: 04-09-2022 End: 05-02-[address] ROMA PRITCHARD Facility:[facility] Start: 04-07-2022 End: 04-07-2022 ambulatory Roma Pritchard Other [employer] Other Start: 04-07-2022 Telephone encounter Roma Pritchard [facility] [place] Start: 04-04-2022 End: 04-05-[address] ROMA PRITCHARD Facility:[facility] Start: 04-02-2022 End: 04-02-2022 ambulatory Roma Pritchard Other [employer] Other Start: 04-02-2022 Office outpatient vi sit 25 minutes Roma Pritchard [facility] [place] Start: 03-28-2022 End: 03-28-2022 ambulatory DO Roma Pritchard Work Phone: [facility] Work Phone: Start: 03-28-2022 End: 03-28-2022 Patient encounter procedure DO Roma Pritchard Work Phone: [facility] [place] Work Phone: Start: 03-17-2022 End: 03-17-2022 ambulatory Roma Pritchard Other [employer] Other Start: 03-17-2022 Telephone encounter Roma Pritchard [facility] [place] Start: 03-13-2022 End: 03-13-2022 ambulatory Roma Pritchard Other [employer] Other Start: 03-13-2022 Telephone encounter Roma Pritchard [facility] [place] Start: 03-05-2022 FQHC visit new patient Ar quintana TARIQ [facility] Start: 03-05-2022 End: 03-05-2022 ambulatory DO Roma Pritchard Work Phone: [facility] Work Phone: Start: 03-05-2022 End: 03-05-2022 Patient encounter procedure DO Roma Pritchard Work Phone: [facility] Start: 02-25-2022 Office outpatient vi sit 15 minutes Tanna [facility] Start: 02-25-2022 End: 02-25-2022 ambulatory DO Roma Pritchard Work Phone: [facility] Work Phone: Start: 02-25-2022 End: 02-25-2022 Patient encounter procedure DO Roma Pritchard Work Phone: [facility]-Sleep Lab Work Phone: Start: 01-21-2022 End: 01-21-2022 ambulatory Roma Pritchard Other [employer] Other Start: 01-21-2022 Telephone encounter Roma Pritchard [facility] Start: 01-17-2022 End: 01-17-2022 Patient encounter procedure DO Roma Pritchard Work Phone: [facility] Work Phone: Start: 01-13-2022 End: 01-13-2022 ambulatory Roma Pritchard Other [employer] Other Start: 01-13-2022 Telephone encounter Roma Pritchard [facility] [place] Start: 01-11-2022 End: 01-11-2022 ambulatory DO Roma Pritchard Work Phone: [facility] Work Phone: Start: 01-11-2022 End: 01-11-2022 Patient encounter procedure DO Roma Pritchard Work Phone: [facility]-CT Scan [facility] [place] Start: 01-08-2022 End: 01-08-2022 ambulatory Roma Pritchard Other [employer] Other Start: 01-08-2022 Telephone encounter Roma Pritchard [facility] [place] Start: 12-31-2021 End: 12-31-2021 ambulatory Roma Pritchard Other [employer] Other Start: 12-31-2021 Telephone encounter Roma Pritchard [facility] [place] Start: 12-30-2021 End: 12-31-[address] ROMA BOUDREAUX Facility:[facility] Start: 12-04-2021 End: 12-04-2021 ambulatory Roma Pritchard Other [employer] Other Start: 12-04-2021 Telephone encounter Roma Pritchard [facility] [place] Start: 10-29-2021 End: 11-20-[address] ROMA PRITCHARD Facility:[facility] Start: 10-21-2021 End: 10-21-2021 ambulatory Roma Pritchard Other [employer] Other Start: 10-21-2021 Telephone encounter Roma Pritchard [facility] [place] Start: 10-17-2021 End: 10-18-[address] ROMA PRITCHARD Facility:[facility] Start: 10-11-2021 End: 10-11-2021 ambulatory Roma Pritchard Other [employer] Other Start: 10-11-2021 Telephone encounter Roma Pritchard [facility] [place] Start: 10-02-2021 End: 10-02-2021 ambulatory Roma Pritchard Other [employer] Other Start: 10-02-2021 Telephone encounter Roma Pritchard [facility] [place] Start: 09-23-2021 End: 09-23-2021 Patient encounter procedure DO Roma Pritchard Work Phone: [facility] [place] Start: 09-19-2021 End: 09-20-[address] ROMA PRITCHARD Facility:[facility] Start: 08-29-2021 End: 08-30-[address] ROMA PRITCHARD Facility:[facility] Start: 08-12-2021 End: 08-12-2021 ambulatory Roma Pritchard Other [employer] Other Start: 08-12-2021 Telephone encounter Roma Pritchard [facility] [place] Start: 08-08-2021 End: 08-09-[address] ROMA PRITCHARD [facility] [employer] Other Start: 08-08-2021 Telephone encounter Roma Pritchard [facility] [place] Start: 08-02-2021 End: 08-02-2021 ambulatory Roma Pritchard Other [employer] Other Start: 08-02-2021 Telephone encounter Roma Pritchard [facility] [place] Start: 06-26-2021 End: 06-26-2021 ambulatory Roma Pritchard Other [employer] Other Start: 06-26-2021 Telephone encounter Roma Pritchard [facility] [place] Start: 06-18-2021 End: 06-18-2021 ambulatory Roma Pritchard Other [employer] Other Start: 06-18-2021 Telephone encounter Roma Pritchard [facility] [place] Start: 05-07-2021 End: 05-07-2021 ambulatory Tanna Wilson Other [employer] Other Start: 05-07-2021 Office outpatient vi sit 15 minutes Tanna [facility] Start: 04-24-2021 End: 04-24-2021 ambulatory Roma Ritchiecarmen Other [employer] Other Start: 04-24-2021 Telephone encounter Roma Ritchiecarmen [facility] [place] Start: 04-19-2021 End: 04-19-2021 ambulatory Megan Asencio Other [employer] Other Start: 04-19-2021 Office outpatient vi sit 15 minutes Megan Asencio [facility] Start: 03-22-2021 End: 03-22-2021 ambulatory Roma Pritchard Other [employer] Other Start: 03-22-2021 Office outpatient vi sit 25 minutes Roma Ritchiecarmen [facility] [place] Start: 12-28-2020 End: 12-28-2020 ambulatory Roma Pritchard Other [employer] Other Start: 12-28-2020 Telephone encounter Roma Francheska [facility] [place] Start: 12-21-2020 Telephone encounter Roma Francheska [facility] [place] Start: 12-18-2020 Office outpatient vi sit 25 minutes Roma Pritchard [facility] [place] Procedures Date Procedure Procedure Detail Performing Clinician [...] Surgery: [id number] Result Comment: PERF ORMED BY: [facility] [address] PATHOLOGIST GARDENING INSTRUCTOR CIRA GRAHAM M.D. Start: 03-28-2022 Urine culture [...] Date Care Activity Detail Author Start: 03-25-2023 [facility] Start: 11-04-2022 End: 11-04-2022 [facility] Start: 10-17-2022 [facility] Start: 03-28-2022 [facility] Bacteria identified in Urine by Culture [facility] Glucose measurement estimated from glycated hemoglobin [facility] Glucose measurement estimated from glycated hemoglobin [facility] Hemoglobin A1c/Hemog lobin.total in Blood [facility] Immunizations Immunization Date Immunization Notes Care Provider Ricardo bauer 12-23-2022 influenza virus vaccine, unspecified formulation MARIANA DUONG [facility] 12-04-2022 Flu Shot - Documentation Purposes Only Roma Pritchard Other [employer] Other 06-13-2022 Prevnar 20 Roma Ritchiecarmen Other [employer] Other 11-23-2021 COVID-19 mRNA Bivale nt Booster (Pfizer) DO Roma Ritchiecarmen Work Phone: [facility] 11-20-2021 influenza, seasonal, injectable Roma Ritchiecarmen Other [employer] Other 11-20-2021 influenza virus vaccine, unspecified formulation MARIANA DUONG [facility] 12-12-2020 COVID-19 Vaccine Pfi zer - Documentation Purposes Only Roma Pritchard Other [facility] 12-04-2020 influenza, seasonal, injectable Roma Ritchiecarmen Other [employer] Other 11-07-2020 influenza virus vaccine, unspecified formulation MARIANA DUONG [facility] 07-11-2020 Kenalog -40 mg Roma Pritchard Other [facility] [employer] Other 05-22-2020 COVID-19 Vaccine Pfi zer - Documentation Purposes Only Roma Pritchard Other [facility] 05-16-2020 COVID-19 Vaccine Pfi zer - Documentation Purposes Only Roma Pritchard Other [facility] 05-12-2020 COVID-19 mRNA, Comirnaty (Pfizer) DO Roma Ritchiecarmen Work Phone: [facility] 05-01-2020 COVID-19 Vaccine Pfi zer - Documentation Purposes Only Roma Pritchard Other [facility] 04-25-2020 SARS-CoV-2 (COVID-19 ) mRNA BNT-162b2 vax MARIANA DUONG [facility] 12-09-2019 influenza, seasonal, injectable Roma Pritchard Other [employer] Other 12-09-2019 influenza virus vaccine, unspecified formulation MARIANA DUONG [facility] 11-24-2019 influenza virus vaccine, unspecified formulation MARIANA DUONG [facility] 01-12-2019 Kenalog -40 mg Roma Pritchard Other [employer] Other 12-31-2017 zoster vaccine recombinant Roma Pritchard Other [facility] 10-31-2017 zoster vaccine recombinant Roma Pritchard Other [facility] 10-31-2017 tetanus toxoid, redu cuba diphtheria toxoid, and acellular pertussis vaccine, adsorbed Roma Pritchard Other [facility] 11-27-2016 zoster vaccine, live Roma hidalgo Other [facility] 11-21-2016 tetanus toxoid, redu cuba diphtheria toxoid, and acellular pertussis vaccine, adsorbed Roma Pritchard Other [facility] Payers Date Payer Category Payer Self-pay [id number] 1958 [facility] [id number] 1958 Medicare [id number] 2.1 [id number] 1955 Unknown [id number] 2.16.84 0.1.461730.3.579.2.593 1956 Unknown [id number] 2.16.84 0.1.871670.3.579.2.593 1956 Unknown [id number] 2.16.84 0.1.600999.3.579.2.593 1956 Unknown [id number] 2.16.84 0.1.756118.3.579.2.593 1956 Unknown [id number] 2.16.84 0.1.694183.3.579.2.593 1956 Unknown [id number] 2.16.84 0.1.228161.3.579.2.593 1956 Unknown [id number] 2.16.84 0.1.904045.3.579.2.593 1956 Unknown [id number] 2.16.84 0.1.746142.3.579.2.593 1956 Unknown [id number] 2.16.84 0.1.493535.3.579.2.593 1956 Unknown [id number] 2.16.84 0.1.131256.3.579.2.1259 1956 Unknown [id number] 2.16.84 0.1.807630.3.579.2.1259 1956 Unknown [id number] 2.16.840 .1.448767.3.579.2.1259 1956 Unknown [id number] 2.16.8 40.1.651128.3.579.2.727 1956 Unknown [id number] 2.16.8 40.1.666163.3.579.2.727 1956 Unknown [id number] 2.16.8 40.1.576637.3.579.2.727 Unknown [id number] 2.16.8 40.1.152623.3.579.2.531 Unknown [id number] 2.16.8 40.1.842998.3.579.2.531 Unknown [id number] 2.16.8 40.1.058490.3.579.2.531 Unknown [id number] 2.16.8 40.1.826907.3.579.2.531 Unknown [id number] 2.16.8 40.1.673183.3.579.2.531 Unknown [id number] 2.16.8 40.1.537805.3.579.2.531 Unknown [id number] 2.16.8 40.1.264384.3.579.2.531 Unknown [id number] 2.16.8 40.1.989760.3.579.2.531 Unknown [id number] 2.16.8 40.1.798717.3.579.2.531 Unknown [id number] 2.16.8 40.1.906605.3.579.2.531 Social History Date Type Detail Facility Unknown if ever smoked [employer] Other Sex Assigned At [facility] Start: 12-26-2019 End: 11-04-2022 Tobacco smoking status HIIS Ex-smoker (finding) [facility] Start: 1955 Sex Assigned At Female [facility] Medical Equipment Procedure Code Equipment Code Equipment Origin al Text Equipment Identifier Dates Arthroplasty, hip, total, anterior approach Acetabular shell [id number] FDA Start: 11-04-2022 Arthroplasty, hip, total, anterior approach Ceramic femoral head prosthesis [id number] FDA Start: 11-04-2022 Arthroplasty, hip, total, anterior approach Coated hip femur prosthesis, modular [id number] FDA Start: 11-04-2022 Arthroplasty, hip, total, anterior approach Non-constrained polyethylene acetabular liner [id number] [facility] Start: 11-04-2022 Goals Date Patient Goal Desired Activity /State Functional Status Date Assessment Result Facility 01-06-2023 Functional Status N/A [facility] Clinical Notes 12-18-2020 to 04-02-2023 Note Date [...] level is 595. Folate is 15.8. 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 She is going to see a asphalt smoother to see if she can learn how [...] was poor and he was in the [place]. She would prefer to stay around 141 pounds which is fine. She does resistance training, walks and is running on her treadmill now. Mar, Kidney stone (ICD-10 - N20.0) She voices that she recently saw Mariana Duong PA-C at [facility] for evaluation and was told she [...] is to ask Mariana Duong PA-C at [facility] if she should be taking a [...] She should look into the Mediterranean Diet. [employer] Other 01-15-2024 Evaluation note* Encounter Date Diagnosis Assessment Notes Treatment Notes Treatment Clinical Notes Feb, Obstructive sleep apnea (ICD-10 - G47.33) Fortunately, the patient is using and benefiting from treatment. Download was reviewed with patient, Current pressure is controlling apnea well, And we will make no changes at this time. A prescription was sent to the [employer] for new supplies throughout the year. She [...] sleepiness, or poor response to treatment. . [employer] Other 01-10-2024 Evaluation note* Encounter Date Diagnosis Assessment Notes Treatment Notes Treatment Clinical Notes Feb, Rotator cuff syndrome, right (ICD-10 - M75.101) [employer] Other 01-09-2024 Evaluation note* Encounter Date Diagnosis [...] pain of right shoulder (ICD-10 - M25.511) [employer] Other 11-14-2023 Hospital Discharge instructions Patient Education [...] include: ?8 oz (237 mL) of milk, ztmtamr-edsqrmkgyqwg-vlqsp milk, and calcium- fortifiedfruit juice. Calcium-fortified means [...] ?Spinach (cooked), rhubarb, beets, sweet potatoes, and Iraqi chard. ?Peanuts. ?Potato chips, romanian fries, and baked potatoes with skin on. ?Nuts and nut products. ?Chocolate. If you regularly take a diuretic medicine, make sure to eat at least 1 or 2 servings of fruits or vegetables that are high in potassium each day. These include: ?Avocado. ?Banana. ?Spencer, prune, carrot, or tomato juice. ?Baked potato. [...] magnesium, fish oil, or vitamin B6. Take zwtm-sid-bpgktwj and prescription medicines only as told by [...] Casseroles. Pizza. Lasagna. Frozen meals. Potato chips. Northern Irish fries. The items listed above may not [...] provider. Document Revised: 10/21/2021 Document Reviewed: 10/21/2021 ElseP21 Patient Education 2022 [employer]. Follow Up Care 01/02/2022 10:12:49 With:MARIANA DUONG PA-C URL Address: [address] [place] [address] When: Unknown [facility]-08-[facility]23 Evaluation note* Encounter Date Diagnosis Assessment Notes Treatment Notes Treatment Clinical Notes Dec, Anxiety (ICD-10 - F41.9) [employer] Other 11-08-2023 Evaluation note* Encounter Date Diagnosis [...] hip replacement. 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 Continue taking [id number] anti-inflammatorie s as needed for assistance with swelling and pain associated with the operative extremity. Follow-up at 1 year postop for repeat examination and repeat x-rays. Patient will call with any questions or concerns. [employer] Other 09-27-2023 Evaluation note* Encounter Date Diagnosis Assessment Notes Treatment Notes Treatment Clinical Notes Oct, Status post total hip replacement, right (ICD-10 - Z96.641) Oct, Aftercare following joint replacement surgery (ICD-10 - Z47.1) Oct, Presence of right artificial hip joint (ICD-10 - Z96.641) Oct, Other [facility] ABBY at [facility] on 11/04/2022 Doing well Patient may [...] examination and x-rays of the right hip. [employer] Other 09-01-2023 Evaluation note* Encounter Date Diagnosis [...] patient could proceed with surgery safely. The geographic information systems manager was vital for surgery timing and [...] plans. Prolonged services time spent: 31 minutes [employer] Other 08-31-2023 Evaluation note* Encounter Date Diagnosis Assessment Notes Treatment Notes Treatment Clinical Notes Sep, Primary osteoarthritis of right hip (ICD-10 - M16.11) Sep, Other 1. Right ABBY Home Medications - DVT prophylaxis: Aspirin - NSAID: Celebrex - Disposition: Same-day discharge-her and her daughters will be there to help her postop Joints Meeting Checklist - Pharmacy: [facility] to bed - Approach/Technique: anterior, Blanchard bed - Implants: Avenir Complete/G7; - Anesthesia: general versus spinal - Blocks: Fascia iliaca - Preop Antibiotics: Ancef - TXA: yes-systemic - Positioning/OR Bed: supine on Blanchard bed - Intraop X-ray: yes - Maxwell: [...] elected to proceed with the above surgery. [employer] Other 08-08-2023 Evaluation note* Encounter Date Diagnosis Assessment Notes Treatment Notes Treatment Clinical Notes Sep, Anxiety (ICD-10 - F41.9) [employer] Other 07-28-2023 Evaluation note* Encounter Date Diagnosis Assessment Notes Treatment Notes Treatment Clinical Notes Aug, Primary osteoarthritis of right hip (ICD-10 - M16.11) [employer] Other 07-27-2023 Evaluation note* Encounter Date Diagnosis Assessment Notes Treatment Notes Treatment Clinical Notes Aug, Primary osteoarthritis of right hip (ICD-10 - M16.11) [employer] Other 05-04-2023 Evaluation note* Encounter Date Diagnosis [...] June, Other 9:25 AM - 9:31 AM [employer] Other 04-20-2023 Evaluation note* Encounter Date Diagnosis Assessment Notes Treatment Notes Treatment Clinical Notes May, Hyperlipidemia (ICD-10 - E78.5) [employer] Other 02-13-2023 Evaluation note* Encounter Date Diagnosis Assessment Notes Treatment Notes Treatment Clinical Notes Mar, Cervical pain (ICD-10 - M54.2) Mar, Dysphagia (ICD-10 - R13.10) [employer] Other 02-08-2023 Evaluation note* Encounter Date Diagnosis [...] abnormalities that would impede her swallowing. Mar, residential use of drug (ICD-10 - Z79.899) Mar, [...] out abnormalities or have her see a disassembler to discuss an EGD. Right now she [...] is an interaction with her other medications. [employer] Other 01-19-2023 Evaluation note* Encounter Date Diagnosis Assessment Notes Treatment Notes Treatment Clinical Notes Feb, Anxiety (ICD-10 - F41.9) [employer] Other 01-11-2023 Evaluation note* Encounter Date Diagnosis Assessment Notes Treatment Notes Treatment Clinical Notes Feb, Right hip pain (ICD-10 - M25.551) Feb, Primary osteoarthritis of right hip (ICD-10 - M16.11) Feb, Other 1. We had a jonh g discussion with the patient today concerning [...] hip joint. Using sterile technique, 3cc of mounikaalog and 7cc of bupivicaine was injected into the right hip joint. Patient tolerated the injection well. Images are stored elsewhere. 6. Follow up as needed [employer] Other 01-03-2023 Evaluation note* Encounter Date Diagnosis Assessment Notes Treatment Notes Treatment Clinical Notes Feb, Obstructive sleep apnea (ICD-10 - G47.33) Fortunately, the patient is using and benefiting from treatment. Download was reviewed with patient, Current pressure is controlling apnea well, And we will make no changes at this time. I did send an order for a mask fitting with recommendations to try [employer] Gel Pillows Cushion per patient request. A prescription was sent to the [employer] for new supplies throughout the year. She [...] sleepiness, or poor response to treatment. . [employer] Other 11-29-2022 Evaluation note* Encounter Date Diagnosis Assessment Notes Treatment Notes Treatment Clinical Notes Dec, Anxiety (ICD-10 - F41.9) [employer] Other 11-16-2022 Evaluation note* Encounter Date Diagnosis Assessment Notes Treatment Notes Treatment Clinical Notes Dec, Pulmonary nodules (ICD-10 - R91.8) [employer] Other 11-08-2022 Evaluation note* Encounter Date Diagnosis [...] and wore disposable gloves and a mask. [employer] Other 10-12-2022 Evaluation note* Encounter Date Diagnosis Assessment Notes Treatment Notes Treatment Clinical Notes Nov, Anxiety (ICD-10 - F41.9) [employer] Other 08-29-2022 Evaluation note* Encounter Date Diagnosis Assessment Notes Treatment Notes Treatment Clinical Notes Sep, Anxiety (ICD-10 - F41.9) Sep, GERD (gastroesophageal reflux disease) (ICD-10 - K21.9) [employer] Other 08-26-2022 NotePROCEDURE: XR FOOT RT MIN [...] Electronically authenticated by: PAIGE CLAYTON Date: 2021-10-18 10:16[facility]08-19-2022 Evaluation note* Encounter Date Diagnosis Assessment Notes Treatment Notes Treatment Clinical Notes Sep, Anxiety (ICD-10 - F41.9) [employer] Other 08-10-2022 Evaluation note* Encounter Date Diagnosis Assessment Notes Treatment Notes Treatment Clinical Notes Sep, Anxiety (ICD-10 - F41.9) [employer] Other 08-10-2022 Evaluation note* Encounter Date Diagnosis [...] Weight loss (ICD-10 - R63.4) Sep, Other retirement (current) drug therapy (ICD-10 - Z79.899) Sep, [...] broken foot. She will continue to monitor. [employer] Other 07-29-2022 NotePROCEDURE: XR FOOT RT MIN [...] authenticated by: PAIGE CLAYTON Date: 2021-09-20 08:10[id number] NotePROCEDURE: XR FOOT RT MIN 3 VIEWS [...] authenticated by: PAIGE CLAYTON Date: 2021-08-30 09:32[facility] [id number] Evaluation note* Encounter Date Diagnosis Assessment Notes Treatment Notes Treatment Clinical Notes Jul, Anxiety (ICD-10 - F41.9) Jul, Essential hypertension (ICD-10 - I10) [employer] Other 06-16-2022 NotePROCEDURE: XR FOOT RT MIN [...] Electronically authenticated by: PAIGE CLAYTON Date: 2021-08-08 17:31[facility]06-16-2022 Evaluation note* Encounter Date Diagnosis Assessment Notes Treatment Notes Treatment Clinical Notes Jul, Foot pain, right (ICD-10 - M79.671) [employer] Other 05-04-2022 Evaluation note* Encounter Date Diagnosis [...] (ICD-10 - I10) She voices that her [facility] nurse contacts her monthly and suggested [...] should continue with this. She voiced understanding. [employer] Other 04-26-2022 Evaluation note* Encounter Date Diagnosis Assessment Notes Treatment Notes Treatment Clinical Notes May, Anxiety (ICD-10 - F41.9) [employer] Other 03-15-2022 Evaluation note* Encounter Date Diagnosis Assessment Notes Treatment Notes Treatment Clinical Notes Apr, Obstructive sleep apnea (ICD-10 - G47.33) Fortunately, the patient is using and benefiting from treatment. Download was reviewed with patient, Current pressure is controlling apnea well, And we will make no changes at this time. A prescription was sent to the [employer] for new supplies throughout the year. She [...] sleepiness, or poor response to treatment. . [employer] Other 03-02-2022 Evaluation note* Encounter Date Diagnosis Assessment Notes Treatment Notes Treatment Clinical Notes Apr, Osteopenia (ICD-10 - M85.80) [employer] Other 02-25-2022 Evaluation note* Encounter Date Diagnosis Assessment Notes Treatment Notes Treatment Clinical Notes Mar, Trigger finger, right ring finger (ICD-10 - M65.341) Right ring trigger finger injected with cortisone under sterile technique, patient tolerated well Mar, Right hand pain (ICD-10 - M79.641) [employer] Other 01-28-2022 Evaluation note* Encounter Date Diagnosis [...] last DEXA scan was in 2019. 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 [employer] Other 10-26-2021 Evaluation note* Encounter Date Diagnosis [...] did recommend that she avoid doing planks. [employer] Other Evaluation + Plan note Future Appointments Appointment Date:01/12/2024 08:30:00 AM Scheduled Provider:MARIANA DUONG PA-C Location:[facility] Appointment Type:URO Office Visit [facility] evaluation noteNo InformationNort [employer] Other Evaluation noteNortIcelandic [employer]acial Other Evaluation noteNo assessment information available [facility] Work Phone: history general Narrative - Reported* Type Description Date Medical History Hypertension Medical History Esophageal reflux Medical History bladder trouble Medical History generalized anxiety (takes med t wice per month) Surgical History Right Breast Biopsy (benign) Surgical History Tubal Ligation 1979 Surgical History cystocopy; Dr. Guadalupe Surgical History colonoscopy - Dr Casiano 09/2015 Surgical History eye lid surgery Dr Collin arevalo 01/08/17 Hospitalization History Vaginal 77 & 79 [employer] Other history general Narrative - ReportedNoBlaast Other history general Narrative - Reported* Type [...] 01/08/17 Hospitalization History Vaginal 77 & 79 [employer] Other Hisudjo general Narrative - Reported* Type Description Date [...] 01/08/17 Hospitalization History Vaginal 77 & 79 [employer] Other history general Narrative - Reported* Type Description Date Medical History Hypertension Medical History Esophageal reflux Medical History bladder trouble Medical History generalized anxiety (takes med t wice per month) Medical History Sleep apnea Surgical History Right Breast Biopsy (benign) Surgical History Tubal Ligation 1979 Surgical History cystocopy; Dr. Guadalupe Surgical History colonoscopy - Dr Castaneda rman / Normal needs repeat in 09/2015 Surgical History eye lid surgery Dr Collin arevalo 01/08/17 Surgical History RTHA 11/04/22 Hospitalization History Vaginal 77 & 79 [employer] Other Hospital course Narrative No data available for this section [facility] progress note No data available for this section [facility] [place] reason for visit Narrativereview lab, discuss multiple issues see treatment plan for further informationNoCliq [employer] Other Reason for visit Narrativereview labs/med refill, discuss multiple issues, see treatment plan for further informationNoBlaast Other Summary Purpose Family History No Family [...] section and content) DATE CREATED AUTHOR 08/04/2018 [facility] DATE CREATED AUTHOR AUTHOR'S ORGANIZ ATION 05/05/2020 [facility] DATE CREATED AUTHOR AUTHOR'S ORGANIZ ATION 05/31/2022 [facility] DATE CREATED AUTHOR AUTHOR'S ORGANIZ ATION 04/02/2023 [facility] DATE CREATED AUTHOR AUTHOR'S ORGANIZ ATION 05/09/2023 [facility] DATE CREATED AUTHOR AUTHOR'S ORGANIZ ATION 05/12/2023 [facility] REASON FOR VISIT (unrecogniz ed section [...] Status Dates Roma Pritchard DO Primary Care Provider, Attending Pro vider Active Team Status: Active Member Role Status Dates Roma Pritchard DO Primary Care Provider Active Team Status: Inactive Member Role Status Dates Roma Girvin , DO Primary Care Provider Active Tanna Wilson NP Attending Provider Active Team Status: Inactive Member Role Status Onel Pritchard DO Primary Care Provider Active [place] [...] Team Status: Inactive Member Role Status Onel Provider Conversion Attending Provider Active St art: March 03, 2023 End: March 03, 2023 Team Status: Inactive Member Role Status Onel Pritchard DO Primary Care Provider Active S tart: March 03, 2023 End: March 03, 2023 Colby Shaffer DO Attending Provider Active St art: March 03, 2023 End: March 03, 2023 Team Status: Inactive Member Role Status Onel Wilson NP Attending Provider Active Start: March [...] BE BASED ON THE PRIMARY CLINICAL RECORDS. [facility] provides no warranty or guarantee of the accuracy or completeness of information in this document.
--- NOTE | 2023-05-19 10:15 | XR_ITS ---
[address] [address] Patient Name: RAHUL AGUILERA MRN: [facility]:[id number] date: 1955 Sex: F Assigned Patient Location: [place] Current Patient Location: [place] Accession/Order Number: [id number] Exam Date: 05/19/2023 10:10 Report Date: 05/19/2023 13:38 At the request of: SHIRA DUONG Procedure: XR abdomen 1V EXAMINATION: XR abdomen 1V HISTORY: Kidney Stones N20.0 COMPARISON: No relevant comparison available. FINDINGS: KIDNEY/URETER - RIGHT: 8 mm calcification just below the right L1 transverse process possibly a stone in the right renal pelvis KIDNEY/URETER - LEFT: 5.2 mm calcification upper pole PELVIS: No visible ureteral calcifications. Any visible calcifications favor phleboliths. BOWEL: No abnormal dilation or deviation. BONES: No acute abnormality. Moderate degenerative changes of the spine. Right hip arthroplasty. Moderate left hip osteoarthritis OTHER: Negative. No abnormal gaseous collections. XR/XR abdomen 1V IMPRESSION: Bilateral nephrolithiasis Electronically authenticated by: ROMA BOUDREAUX Date: 05/19/2023 13:38
== END 2023-05-19 09:22 | disposition home or self-care (01) ==
LOC: US 09:21
PROVIDERS: PCP Family Medicine; Visit Provider Physician Assistant
DX: N20.0 Calculus of kidney (principal); N28.1 Cyst of kidney, acquired
CPT/HCPCS: 74018; 76775

== ENCOUNTER 2023-07-28 13:03 | Outpatient (OUT) | payer MEDICARE, BC, SELFPAY ==
--- NOTE | 2023-07-28 | XR_ITS ---
The [address] [address] Patient Name: RAHUL AGUILERA MRN: [id number] date: 1955 Sex: F Assigned Patient Location: Current Patient Location: Accession/Order Number: [id number] Exam Date: 07/28/2023 13:05 Report Date: 07/29/2023 13:14 At the request of: DEEPIKA XIE Procedure: XR foot LT min 3V PROCEDURE: XR foot LT min 3V HISTORY: LEFT FOOT PAIN COMPARISON: None. FINDINGS: BONES:Small calcaneal plantar spur. Small degenerative enthesophyte at Achilles tendon insertion into calcaneus. No fracture, dislocation, or loss of plantar arch. SOFT TISSUES:No visible soft tissue swelling. EFFUSION:None visible. OTHER: Negative. XR/XR foot LT min 3V IMPRESSION: 1. No acute bone abnormality. 2. Mild degenerative enthesopathic spurring of the calcaneus. Electronically authenticated by: PAIGE CLAYTON Date: 07/29/2023 13:14
== END 2023-07-28 13:04 | disposition home or self-care (01) ==
PROVIDERS: PCP Family Medicine; Visit Provider Podiatrist Foot & Ankle Surgery
DX: M79.672 Pain in left foot (principal); M77.32 Calcaneal spur, left foot
CPT/HCPCS: 73630

== ENCOUNTER 2023-12-25 08:05 | Outpatient (OUT) | payer MEDICARE, BC, SELFPAY ==
--- NOTE | 2023-12-25 08:10 | XR_ITS ---
The [address] [address] Patient Name: RAHUL AGUILERA MRN: [facility]:[id number] date: 1955 Sex: F Assigned Patient Location: [facility] Current Patient Location: Accession/Order Number: [id number] Exam Date: 12/25/2023 08:12 Report Date: 12/26/2023 07:53 At the request of: SHIRA DUONG Procedure: XR abdomen 1V EXAMINATION: XR abdomen 1V HISTORY: Kidney Stone COMPARISON: No relevant comparison available. FINDINGS: KIDNEY/URETER - RIGHT: No visible renal or ureteral calcifications. KIDNEY/URETER - LEFT: No visible renal or ureteral calcifications. PELVIS: No visible ureteral stones. Stable left pelvic calcification favoring a phlebolith. BOWEL: No abnormal dilation or deviation. BONES: Right hip replacement. 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 OTHER: Negative. No abnormal gaseous collections. XR/XR abdomen 1V IMPRESSION: 1. No appreciable urinary tract calculi. Electronically authenticated by: PAIGE CLAYTON Date: 12/26/2023 07:53
--- OUTSIDE RECORDS SUMMARY | 2023-12-25 08:16 | XMS_ITS | CCD ---
Author Organization [facility] Care Team Providers Care Pharmaceutical Plant Operator Name Role Phone Roma Pritchard Unavailable Megan Asencio Unavailable Tanna Wilson Unavailable DO Roma Pritchard Primary Care Provider DO Roma Pritchard Attending Provider [phone] DO Roma Pritchard Primary Care Provider [phone] DO Roma Pritchard Attending Provider MD Orlando Vicente Attending Provider LEORA Wilson Attending Provider MD Ar Herman II Attending Provider Ar Herman II Unavailable FRANCHESKA, DR BRANDON Primary Care Unavailable RABIA TOLBERT Admitting Unavailable ZIEBLAMONTE, DR PAIGE Carmichael Consulting Unavailable RABIA TOLBERT Attending Unavailable RABIA TOLBERT Consulting Unavailable FRANCHESKA, DR BRANDON Primary Care Unavailable RABIA TOLBERT Admitting Unavailable ZIEBER, DR PAIGE Carmichael Consulting Unavailable RABIA TOLBERT Attending Unavailable RABIA TOLBERT Consulting Unavailable GIRCARMEN, DR BRANDON Primary Care Unavailable RABIA TOLBERT Attending Unavailable JONATHAN TOLBERTLY Admitting Unavailable ZIEBER, DR PAIGE Carmichael Consulting Unavailable RBAIA TOLBERT Consulting Unavailable FRANCHESKA, DR BRANDON Attending Unavailable FRANCHESKA, DR BRANDON Admitting Unavailable FRANCHESKA, DR BRANDON Primary Care Unavailable FRANCHESKA, DR BRANDON Primary Care Unavailable RABIA TOLBERT Admitting Unavailable RABIA TOLBERT Attending Unavailable FRANCHESKA, DR BRANDON Primary Care Unavailable GIRCARMEN, DR BRANDON Consulting Unavailable FRANCHESKA, DR BRANDON Attending Unavailable GIRCARMEN, DR BRANDON Admitting Unavailable ZIEBER, DR PAIGE [...] Unavailable WEST, DR BRANDON V Consulting Unavailable RITCHIE, MARIANA Attending Unavailable GIRCARMEN, DR BRANDON Primary Care Unavailable RITCHIE, MARIANA Admitting Unavailable RITCHIE, MARIANA Consulting Unavailable DO Roma Pritchard Primary Care Provider [phone] DO Roma Pritchard Attending Provider MD Ar Herman II Attending Provider DO Roma Pritchard Primary Care Provider [phone] DO Roma Pritchard Attending Provider [phone] Roma Pritchard Primary Care Physician [phone] DO Roma Pritchard Primary Care Provider MD Ar Herman II Attending Provider DO Roma Pritchard Attending Provider Self, Referral Attending Provider Unavailable Colby Shaffer Unavailable DO Roma Pritchard Primary Care Provider MD Ar Herman II Attending Provider DO Colby Shaffer Attending Provider [phone] LEORA Wilson Attending Provider DO Roma Pritchard Primary Care Provider [phone] DO Roma Pritchard Primary Care Provider DO Colby Shaffer Attending Provider LEORA Wilson Tanna Attending Provider DO Roma Pritchard Attending Provider [phone] DO Roma Pritchard Primary Care Provider [phone] ROBERT Duong Attending Provider DO Roma Pritchard Primary Care Provider DO Roma Pritchard Attending Provider [phone] Roma Pritchard Attending Unavailable Francheska, Roma Admitting Unavailable Gircarmen, Roma Primary Care Unavailable Ritchie, Mariana Johnson Admitting Unavailable RitchieMariana stone Attending Unavailable Gircarmen, Roma Primary Care Unavailable Gircarmen, Roma Attending Unavailable Gircarmen, Roma Admitting Unavailable Girvin, Roma Primary Care Unavailable Girvin, Roma Primary Care Unavailable Virgil II, Ar M Admitting Unavailabl e Shawano II, Ar M Attending Unavailabl e Girvin, Roma Primary Care Unavailable Virgil II, Ar M Attending Unavailabl e Virgil II, Ar M Admitting Unavailabl e Girvin, Roma Primary Care Unavailable Virgil II, Ar M Admitting Unavailabl e Shawano II, Ar M Attending Unavailabl e Girvin, Roma Primary Care Unavailable Girvin, Roma Attending Unavailable Girvin, Roma Admitting Unavailable Girvin, Roma Primary Care Unavailable Self, Referral Admitting Unavailable Self, Referral Attending Unavailable Francheska, Roma Primary Care Unavailable Colby Shaffer Admitting Unavailable Colby Shaffer Attending Unavailable Francheska, Roma Primary Care Unavailable Steve Tanna Admitting Unavailable Tanna Wilson Attending Unavailable Francheska, Roma Primary Care Unavailable Gircarmen, Roma Attending Unavailable Gircarmen, Roma Admitting Unavailable Girvin, Roma Primary Care Unavailable Shawano II, Ar M Admitting Unavailabl e Virgil II, Ar Rubi Attending Unavailabl ROBERT Han Attending Unavailab ROBERT Ch Attending Unavailab ROBERT Ch Attending Unavailab Roma Dewitt MD Primary Care Provider JUAN YATES Attending Unavailable LULA ZAMORANO Attending Unavailable JUAN YATES Attending Unavailable JUAN YATES Attending Unavailable JUAN YATES Attending Unavailable JUAN YATES Attending Unavailable Medications Current Medications Medication Drug Class(es) Dates Sig (Normalized) Sig (Original) ALPRAZolam 0.5 mg oral tablet (20 sources) Benzodiazepine Start: 06-26-2022 End: 07-07-2023 take 1 tablet by mouth in the morning ALPRAZolam (Xanax) 0.5 MG tablet Take 0.5 mg by mouth in the morning and 0.5 mg before bedtime. 09/30/2022 Active Start: 01-24-2020 Xanax Oral, As Directed, Refills(s) 0 Start Date: 01/24/20 Status: Ordered Start: 12-25-2019 End: 07-07-2023 take 0.5 mg by mouth every six hours Alprazolam Discontinued 0.5 MG PO Q6H December 25, 2019 12:00am July 07, 2023 9:55am Start: 12-04-2017 take 1 tablet by corey th every twelve hours Xanax 0.5 MG 1 tablet Orally Twice a day Nov, Active Ascorbic Acid (20 sources) Vitamin C Start: 01-06-2023 Vitamin C Angie y Start Date: 01/06/23 Status: Ordered Start: 06-27-2019 take 500 mg by mouth once angie y Ascorbic Acid (Vitamin C) Active 500 MG PO Daily October 17, 2022 12:00am Start: 06-27-2019 take 1 tablet by corey th every other day Vitamin C 500 MG 1 tablet Orally every other day June, Active ascorbic acid (V itamin C) 500 MG tablet Take 500 mg by mouth. Active atorvastatin 20 mg oral tablet (20 sources) HMG-CoA Reductase Inhibitor Start: 05-21-2023 End: 07-07-2023 take 1 tablet by mouth once daily Atorvastatin Discontinued 0 .ROUTE .COMPLEX May 21, 2023 1:14pm July 07, 2023 8:36am TAKE 1 TABLET BY MOUTH EVERY DAY Start: 05-21-2023 take 1 tablet by corey th once daily Atorvastatin Active 0 .ROUTE .COMPLEX May 21, 2023 1:14pm TAKE 1 TABLET BY MOUTH EVERY DAY Start: 12-25-2019 End: 05-21-2023 take 1 tablet by mouth in the morning atorvastatin (Lipitor) 20 MG tablet Take 20 mg by mouth in the morning. 11/29/2022 Active azelaic acid 0.15 mg/mg topi claudia gel (6 sources) Start: 10-06-2023 Azelaic Acid A ctive 1 APPLIC TOPICAL .once a day October 06, 2023 12:00am Start: 05-04-2023 azelaic acid ( Finacea) 15 % gel Indications: Other rosacea Apply thin layer to the face, once daily, 30 day supply 50 g 11 05/04/2023 Active Calcium + D3 600-800 MG-UNIT (1 source) [...] meal Orally Once a day Active Calcium Carbonate / Ergocalciferol (2 sources) Provitamin D2 Compound take 1 tablet by mouth once Calcium Carbonate-Vitamin D 600-3.125 MG-MCG tablet Take 1 tablet by mouth. Active Calcium Carbonate-Vit D3-Min (14 sources) Start: take 1 tablet by mouth once daily [...] D Daily Start Date: 01/06/23 Status: Ordered celecoxib 200 mg oral capsule (20 sources) Nonsteroidal Anti-inflammatory Drug Start: 01-24-2020 take 1 mg by mouth twice daily celecoxib 200 mg Cap mg cap(s), Oral, BID, Refills(s) 0 Start Date: 01/24/20 Status: Ordered Start: 06-27-2019 End: 07-07-2023 take 200 mg by mouth once daily before lunch Celecoxib Discontinued 200 MG PO Daily before lunch December 25, 2019 12:00am July 07, 2023 9:27am cholecalciferol 0.05 mg oral capsule (20 sources) Vitamin D Start: 10-06-2023 take 1 capsule by mouth once daily Cholecalciferol (Vitamin D3) (Vitamin D3) 50 mcg (2,000 unit) capsule Active 2000 UNIT PO Daily October 06, 2023 9:29am Start: 10-17-2022 End: 10-06-2023 take 1 capsule by mouth twice daily Cholecalciferol (Vitamin D3) (Vitamin D3) 50 mcg (2,000 unit) Capsule Discontinued 50 MCG PO Twice daily October 17, 2022 12:00am October 06, 2023 9:34am Start: 09-18-2022 Cholecalcifero l 25 MCG (1000 [...] for 30 days 5k daily Aug, Active CPAP Machine (20 sources) CPAP Machine Act rebecca diclofenac sodium 0.01 mg/mg topical gel (2 sources) Nonsteroidal Anti-inflammatory Drug diclofenac sodium 1 % gel Apply 1 application topically. Active ferrous sulfate 324 mg delayed release oral tablet (20 sources) Start: 07-07-19 take 324 mg by mouth every week Ferrous Sulfate Active 324 MG PO .COMPLEX July 07, 2023 9:33am 324 mg orally takes 3 days per week; Start: 07-07-2023 End: 07-07-2023 take 324 mg by mouth three times weekly Ferrous Sulfate Discontinued 324 MG PO Daily July 07, 2023 9:27am July 07, 2023 9:34am takes 3 days per week Start: 10-17-2022 End: 07-07-2023 take 324 mg by mouth five times weekly Ferrous Sulfate Discontinued 324 MG PO Daily October 17, 2022 12:00am July 07, 2023 9:28am takes 5 days per week Start: 09-18-2022 [...] 05-31-2019 take 1 tablet by corey every twenty-four hours Ferrous Sulfate 325 (65 Fe) MG 1 tablet Orally Once a day May, Active Start: 05-31-2019 take 1 tablet by corey once daily Ferrous Sulfate 325 (65 Fe) MG 1 tablet Orally Once a day May, Active take 1 tablet by [facility] every week ferrous sulfate 325 (65 Fe) MG tablet Take 1 tablet by mouth 5 days weekly as directed Indications: supplement Active fluorouracil 50 mg/ml topical cream (6 sources) Nucleoside Metabolic Inhibitor Start: 10-06-2023 Fluorouracil Active 1 APPLIC TOPICAL .once a day October 06, 2023 12:00am Start: 05-04-2023 fluorouracil ( Efudex) 5 % cream Indications: Actinic keratosis Apply to directed areas on the face twice a day x 14 days. Dispense 30 day supply but only use for 14 days. 40 g 05/04/2023 Active hydroCHLOROthiazide 25 mg oral tablet (20 sources) Thiazide Diuretic Start: 10-06-2023 take 25 mg by mouth once daily Hydrochlorothiazide Active 25 MG PO Daily October 06, 2023 9:18am Start: 08-28-2023 End: 10-06-2023 Hydrochlorothiazide Disconti nued 0 .ROUTE .COMPLEX 90 August 28, 2023 8:33am October 06, 2023 9:18am TAKE 1 TABLET DAILY Start: 12-25-2019 End: 08-28-2023 take 25 mg by mouth once daily Hydrochlorothiazide Discontinued 25 MG PO Daily December 25, 2019 12:00am August 28, 2023 8:34am Iron Chews (2 sources) Start: 01-06-2023 take 1 mg by mouth once daily Iron Chews mg, Oral, Daily Start Date: 01/06/23 Status: Ordered losartan potassium 100 mg oral tablet (20 sources) Angiotensin 2 Receptor Berry Start: 10-06-2023 take 100 mg by mouth once daily Losartan Active 100 MG PO Daily October 06, 2023 9:17am Start: 08-17-2023 End: 10-06-2023 take 1 tablet by mouth once daily Losartan Discontinued 0 .ROUTE .COMPLEX 90 August 17, 2023 9:15am October 06, 2023 9:18am TAKE 1 TABLET BY MOUTH EVERY DAY for 90 days Start: 12-25-2019 End: 08-17-2023 take 100 mg by mouth once daily in the morning Losartan Discontinued 100 MG PO Every morning December 25, 2019 12:00am August 17, 2023 9:16am mecobalamin 1 mg chewable tablet (4 sources) Start: 10-06-2023 take 1000 ug by mouth once daily Mecobalamin (Vitamin B12) Active 1000 MCG PO .COMPLEX October 06, 2023 12:00am 1,000 mcg orally on the day she is not taking the iron; meloxicam 15 mg oral tablet (11 sources) Nonsteroidal Anti-inflammatory Drug Start: 07-22-2023 End: 11-06-2023 take 15 mg by mouth once daily Meloxicam Active 15 MG PO Daily November 06, 2023 11:12am Start: 03-04-2023 take 1 tablet by corey th every twenty-four hours Meloxicam 15 MG 1 tablet Orally Once a day for 30 days prn Feb, Not-Taking/PRN methylPREDNISolone (1 source) Corticosteroid Start: 12-17-2023 methylPREDNISolone (Medrol Dospak) 4 MG tablets Indications: Left Achilles tendinitis Follow schedule on MEDROL PACK package instructions to be used as directed 21 tablet 12/17/2023 Active metroNIDAZOLE 7.5 mg/ml topical lotion (14 sources) Nitroimidazole Antimicrobial Start: 10-17-2022 Metronidazole Active 1 APPLIC TOPICAL Daily October 17, 2022 12:00am Miacalcin 200 UNIT/ACT (20 sources) Start: 02-20-2017 [...] Multivitamin preparation (3 sources) Multivitamin Act rebecca 24 hr oxybutynin chloride 5 mg extended [...] 10-17-2022 Calcitonin (Sa lmon) (Miacalcin) 200 unit/actuation [place],Non-Aerosol Active 1 SPRAY INTRANASAL (ALT) Daily October 17, 2022 12:00am Calcitonin (Salm on) 200/ACT USE 1 SPRAY IN ONE NOSTRIL DAILY (ALTERNATING NOSTRILS) for 90 Not-Taking/PRN Calcitonin (Salm on) 200/ACT USE 1 SPRAY IN ONE NOSTRIL DAILY (ALTERNATING NOSTRILS) for 90 Not-Taking Calcitonin (Salm on) 200/ACT USE 1 SPRAY IN ONE NOSTRIL DAILY (ALTERNATING NOSTRILS) for 90 Active Turmeric extract (16 sources) Start: 01-06-2023 Turmeric Oral, Daily Start Date: 01/06/23 Status: Ordered Turmeric Active vitamin B12 (6 sources) Vitamin B12 Start: 01-06-2023 Vitamin B12 [...] days a week May, Active Vitamin D (2 sources) Start: 01-06-2023 Vitamin D Inte rnational_Unit, Oral, [...] Bed Upon Discharge DOS: 11/04/2022 Sep, Not-Taking 12 hr buPROPion hydrochloride 100 mg extended release oral tablet (20 sources) Aminoketone Start: 07-07-2023 End: 10-06-2023 take 100 mg by mouth once daily Bupropion Hcl Discontinued 100 MG PO Daily July 07, 2023 9:33am October 06, 2023 9:09am Start: 07-07-2023 End: 07-07-2023 Bupropion Hcl Discontinued M G PO July 07, 2023 12:00am July 07, 2023 9:34am Start: 11-08-2023 take 1 tablet by corey th once daily Wellbutrin SR 100 mg Tab-ER 100 mg = 1 tab(s), Oral, Daily Start Date: 01/06/23 Status: Ordered Start: 12-27-2019 End: 07-07-2023 take 150 mg by mouth once daily in the morning Bupropion Hcl Discontinued 150 MG PO Every morning December 27, 2019 1:00am July 07, 2023 9:26am Start: 12-25-2019 End: 12-27-2019 take 300 mg by mouth once daily Bupropion Hcl Disconti nued 300 MG PO Daily December 25, 2019 12:00am December 27, 2019 10:40am Caltrate 600+D3 600-800 MG-UNIT (15 sources) take [...] Sep, Not-Taking cefdinir 300 mg oral capsule (19 sources) Cephalosporin Antibacterial Start: 12-27-2019 End: 10-17-2022 take 300 mg by mouth twice daily Cefdinir Discontinued 300 MG PO Twice daily 07 26December 27, 2019 1:00am October 17, 2022 11:18am Co-Enzyme Q-10 100 mg (20 sources) Start: 05-15-2014 take 1 capsule by mouth once daily Co-Enzyme Q-10 100 mg 1 capsule with a meal Orally Once a day Apr, Not-Taking Start: 05-15-2014 Start: 05-15-2014 take 1 capsule by mouth once d aily Co-Enzyme Q-10 100 mg 1 capsule with a meal Orally Once a day Apr, Active docusate sodium 50 mg / sennosides, prison 8.6 mg oral tablet (6 sources) Start: 10-23-2022 take 2 tablets by mouth every twenty-four hours Senokot S 8.6-50 MG 2 tablets Orally Once a day for 30 days Med to Bed Upon Discharge DOS: 11/04/2022 Sep, Not-Taking esomeprazole 40 mg delayed release oral capsule (20 sources) Proton Pump Inhibitor Start: 12-25-2019 End: 07-07-2023 take 40 mg by mouth once daily Esomeprazole Magnesium Discontinued 40 MG PO Daily December 25, 2019 12:00am July 07, 2023 9:27am take 1 capsule by mo [facility] once daily as needed NexIUM 40 1 [...] days Active take 1 capsule by mo [facility] every other day NexIUM 40 1 capsule Orally qod for 90 da ys Active take 1 capsule by mo [facility] every other day NexIUM 40 1 capsule Orally qod Active take 1 capsule by mo [facility] every other day NexIUM 40 1 capsule Orally qod Not-Takin g morphine sulfate 15 mg extended release oral tablet (6 sources) Opioid Agonist Start: 10-23-2022 take 1 tablet by mouth every twelve hours for pain Morphine Sulfate ER 15 MG 1 tablet for breakthrough pain only Orally every 12 hrs for 5 days Med to Bed Upon Discharge DOS: 11/04/2022 Sep, Not-Taking omeprazole 20 mg delayed release oral capsule (12 sources) Proton Pump Inhibitor Start: 11-04-2022 End: 07-07-2023 take 20 mg by mouth once daily Omeprazole Discontinued 20 MG PO Daily November 04, 2022 12:00am July 07, 2023 9:28am ondansetron 8 mg oral tablet (6 sources) [...] DOS: 11/04/2022 Sep, Not-Taking polyethylene glycol 3350 45460 mg powder for oral solution (6 sources) Osmotic Laxative Start: 10-23-2022 MiraLax 17 GM 1 packet mixed with 8 ounces of fluid Orally Once a day for 7 days Med to Bed Upon Discharge DOS: 11/04/2022 Sep, Not-Taking tiZANidine 4 mg oral tablet (20 sources) Central alpha-2 Adrenergic Agonist Start: 12-25-2019 End: 10-17-2022 take 4 mg by mouth every six hours Tizanidine Discontinued 4 MG PO Q6H December 25, 2019 12:00am October 17, 2022 11:18am Start: 05-31-2019 traMADol hydrochloride 50 mg oral [...] 12-25-2019 End: 12-25-2019 Valacyclovir Discontinued TABLET December 25, 2019 12:00am December 25, 2019 8:08pm valACYclovir HCl 1 GM TAKE 2 TABLETS BY MOUTH AT ONSET OF SYMPTOMS, THEN TAKE 2 TABLETS TWELVE HOURS LATER. for 1 prn Not-Taking/PRN valACYclovir HCl 1 GM TAKE 2 TABLETS BY MOUTH AT ONSET OF SYMPTOMS, THEN TAKE 2 TABLETS TWELVE HOURS LATER. for 1 prn Active Vitamin C 500 MG (9 sources) Start: 09-18-2022 take 1 capsule by mo [facility] once daily Vitamin C 500 MG 1 [...] Resolved: 1 Episodic Deficiency and other anemia (10 sources) Anemia, unspecified; Translations: [Anemia, unspecified] Onset: 1 Resolved: 2 Episodic Deficiency and other anemia (4 sources) Anemia; Translations: [Anemia, unspecified] 10-06-2023 Episodic Diabetes mellitus without complication (12 sources) Hyperglycemia, unspecified; Translations: [Hyperglycemia] Onset: 2 Resolved: 2 Episodic Disorders of lipid metabolism (20 sources) Hyperlipidemia; Translations: [Hyperlipidemia, unspecified] Onset: 2 Resolved: 2 Chronic Esophageal disorders (20 sources) Gastroesophageal reflux disease; Translations: [Gastro-esophageal reflux disease without esophagitis] Onset: 2 Resolved: 2 Chronic Essential hypertension (20 sources) Hypertensive disorder; Translations: [Essential (primary) hypertension] Onset: 2 Resolved: 2 Chronic Immunizations and screening for infectious disease (1 source) Encounter for immunization; Translations: [Need for prophylactic vaccination and inoculation against influenza] 11-16-2023 Episodic Menopausal disorders (20 sources) Menopausal flushing; Translations: [Menopausal and female climacteric states] Chronic Mycoses (1 source) Pain in toe; Translations: [Tinea unguium] 12-14-2023 Episodic Nonspecific chest pain (1 source) Chest pain, unspecified Episodic Nutritional deficiencies (20 sources) Vitamin D deficiency; Translations: [Vitamin D deficiency, unspecified] Onset: 2 Resolved: 2 Chronic Nutritional deficiencies (15 sources) Deficiency of other specified B group vitamins; Translations: [Cobalamin deficiency] Onset: 1 Resolved: 2 Episodic Osteoarthritis (20 sources) Arthritis; Translations: [Unspecified osteoarthritis, unspecified site] Onset: 1 Resolved: 2 Chronic Osteoporosis (17 sources) Osteoporosis; Translations: [Other osteoporosis without current pathological fracture] Chronic Other acquired deformities (1 source) Contracture of joint of left ankle; Translations: [Contracture, left ankle] 12-14-2023 Chronic Other aftercare (9 sources) Patient encounter status; Translations: [Aftercare following joint replacement surgery] Chronic Other aftercare (2 sources) Aftercare following joint replacement surgery Chronic Other aftercare (4 sources) Other salvage determiner (current) drug therapy Onset: 2 Resolved: 2 Episodic Other bone disease and musculoskeletal deformities (4 sources) Other specified disorders of bone density and structure, unspecified site; Translations: [Disorder of bone and cartilage, unspecified] Onset: 2 Resolved: 2 Episodic Other bone disease and musculoskeletal deformities (7 sources) Disorder of bone; Translations: [Other specified disorders of bone density and structure, right ankle and foot] 04-08-2023 Episodic Other bone disease and musculoskeletal deformities (5 sources) Osteopenia; Translations: [Other specified disorders of bone density and structure, unspecified site] 07-07-2023 Episodic Other connective tissue disease (16 sources) Hip joint prosthesis present; Translations: [Presence of right artificial hip joint] 04-22-2023 Chronic Other connective tissue disease (16 sources) History of total hip arthroplasty; Translations: [Presence of right artificial hip joint] 04-22-2023 Chronic Other connective tissue disease (6 sources) [...] as traumatic] Episodic Other connective tissue disease (4 sources) Unspecified rotator cuff tear or rupture of right shoulder, not specified as traumatic; Translations: [Disorders of bursae and tendons in shoulder region, unspecified] Episodic Other connective tissue disease (3 sources) Bicipital tendinitis, right shoulder; Translations: [Bicipital tenosynovitis] Episodic Other connective tissue disease (1 source) Cramp and spasm Episodic Other connective tissue disease (7 sources) Disorder of rotator cuff; Translations: [Unspecified rotator cuff tear or rupture of right shoulder, not specified as traumatic] 04-22-2023 Episodic Other connective tissue disease (7 sources) Biceps tendinitis; Translations: [Bicipital tendinitis, right shoulder] 04-22-2023 Episodic Other connective tissue disease (1 source) Left achilles tendonitis; Translations: [Achilles tendinitis, left leg] 12-14-2023 Episodic Other diseases of bladder and urethra (20 sources) Overactive bladder; Translations: [Other specified disorders of bladder] Chronic Other diseases of kidney and ureters (5 sources) Hydronephrosis; Translations: [Hydronephrosis with renal and ureteral calculous obstruction] 12-25-2019 Episodic Other diseases of kidney and ureters (14 sources) Hydronephrosis with renal and ureteral calculous [...] abnormal finding of lung field Episodic Other lower respiratory disease (5 sources) Nodule of lung; Translations: [Solitary pulmonary nodule] 07-07-2023 Episodic Other lower respiratory disease (5 sources) Solitary pulmonary nodule; Translations: [Solitary pulmonary nodule] 07-07-2023 Episodic Other non-traumatic joint disorders (2 sources) [...] mass index (BMI) 26.0-26.9, adult Episodic Other skin disorders (5 sources) Excessive sweating; Translations: [Generalized hyperhidrosis] 07-07-2023 Episodic Other skin disorders (1 source) Generalized hyperhidrosis; Translations: [Generalized hyperhidrosis] 07-07-2023 Episodic Residual codes; unclassified (20 sources) Hypoxia; 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 Residual codes; unclassified (20 sources) Obstructive sleep apnea syndrome; Translations: [Obstructive sleep apnea (adult) (pediatric)] 04-22-2023 Chronic Residual codes; unclassified (3 sources) Obstructive sleep apnea (adult) (pediatric) Onset: 2 Resolved: 2 Chronic Residual codes; unclassified (6 sources) Sleep apnea, unspecified; Translations: [Obstructive sleep apnea (adult)(pediatric)] Onset: 2 Resolved: 2 Chronic Residual codes; unclassified (4 sources) Sleep apnea; Translations: [Sleep apnea, unspecified] 10-06-2023 Chronic Residual codes; unclassified (1 source) Obstructive [...] replacement surgery] Onset: 3 Unclassified (1 source) Unilateral primary osteoarthritis, right hip; Translations: [Unilateral primary osteoarthritis, right hip] Onset: 3 Unclassified (1 source) Encounter for preprocedural laboratory examination; Translations: [Encounter for preprocedural laboratory examination] Onset: 3 Past or Other Problems Problem [...] migraine (1 source) Headache; including migraine Other connective tissue disease (1 source) Trigger [...] initial encounter Onset: 10-02-2021 Resolved: 10-02-2021 Episodic Other screening for suspected conditions (not mental disorders or infectious disease) (3 sources) Encounter for screening for osteoporosis; Translations: [Abnormal findings on diagnostic imaging of other parts of musculoskeletal system] Onset: 05-27-2023 Episodic Results Test Name Value Interpretation Reference Range Facility A1C with Estimated Average G daniel 10-01-2023 Glucose [Mass/Vol] 114 mg/dL Normal [facility] Comment on above: Result Comment: PERF ORMED BY: [place] [address] PATHOLOGIST MARINE FIRER CIRA GRAHAM M.D. Performed By: #### U RDS #### [facility] [address] [place] [address] [place] Alanine aminotransferase [En zymatic activity/volume] in Serum or PlasmaOrdered By: Roma Pritchard on 10-01-2023 ALT [Catalytic activity/Vol] 36 U/L 7 [facility] Comment on above: Performed By: #### U RDS #### [facility] [address] [place] [address] [place] Albumin [Mass/volume] in Ser um or Plasma by Bromocresol green (BCG) dye binding methoOrdered By: Roma Pritchard on 10-01-2023 Albumin BCG dye [Mass/Vol] 4.6 g/dL 3.5-5.7 [facility] Alkaline phosphatase [Enzyma tic activity/volume] in Serum or PlasmaOrdered By: Roma Pritchard on 10-01-2023 ALP [Catalytic activity/Vol] 69 U/L 34-104 [facility] Comment on above: Performed By: #### U RDS #### [facility] [address] Aspartate aminotransferase [ Enzymatic activity/volume] in Serum or PlasmaOrdered By: Roma Pritchard on 10-01-2023 AST [Catalytic activity/Vol] 26 U/L 13-39 [facility] Comment on above: Performed By: #### U RDS #### [facility] [address] Automated basophil %Ordered By: Roma Pritchard on 10-01-2023 Basophils/100 WBC (Bld) 0.5 % . [facility] Comment on above: Performed By: #### F ER, CMP, [id number], A1C WTH eA, B12, CBC, FOL, FE and TIBC, LIPID ####[address] Automated basophil countOrde red By: Roma Pritchard on 10-01-2023 Basophils (Bld) [#/Vol] 0.0 10*3/uL 0.0-0.2 [facility] Comment on above: Result Comment: PERF ORMED BY: [place] [address] PATHOLOGIST MARINE FIRER CIRA GRAHAM M.D. Performed By: #### F ER, CMP, [id number], A1C WTH eA, B12, CBC, FOL, FE and TIBC, LIPID ####[address] Automated blood monocyte cou ntOrdered By: Roma Pritchard on 10-01-2023 Monocytes (Bld) [#/Vol] 0.5 10*3/uL 0.0-0.8 [facility] Comment on above: Performed By: #### F ER, CMP, [id number], A1C WTH eA, B12, CBC, FOL, FE and TIBC, LIPID ####[address] Automated eosinophil %Ordere d By: Roma Pritchard on 10-01-2023 Eosinophils/100 WBC (Bld) 2.7 % . [facility] Comment on above: Performed By: #### F ER, CMP, [id number], A1C WTH eA, B12, CBC, FOL, FE and TIBC, LIPID ####[address] Automated eosinophil countOr dered By: Roma Pritchard on 10-01-2023 Eosinophils (Bld) [#/Vol] 0.2 10*3/uL 0.0-0.45 [facility] Comment on above: Performed By: #### F ER, CMP, [id number], A1C WTH eA, B12, CBC, FOL, FE and TIBC, LIPID ####[place] [id number] [address] Automated monocyte %Ordered By: Roma Pritchard on 10-01-2023 Monocytes/100 WBC (Bld) 8.1 % . [facility] Comment on above: Performed By: #### F ER, CMP, [id number], A1C WTH eA, B12, CBC, FOL, FE and TIBC, LIPID ####[place] [id number] [address] Automated neutrophil %Ordere d By: Roma Pritchard on 10-01-2023 Neutrophils/100 WBC (Bld) 68.7 % . [facility] Comment on above: Performed By: #### F ER, CMP, [id number], A1C WTH eA, B12, CBC, FOL, FE and TIBC, LIPID ####[facility] [id number] [address] Bilirubin.total [Mass/volume ] in Serum or PlasmaOrdered By: Roma Pritchard on 10-01-2023 Bilirubin [Mass/Vol] 1.0 mg/dL 0.3-1.[address] [facility] Comment on above: Performed By: #### U RDS #### [facility] [address] Calcium [Mass/volume] in Ser um or PlasmaOrdered By: Roma Pritchard on 10-01-2023 Calcium [Mass/Vol] 9.8 mg/dL 8.6-10.[address] [facility] Comment on above: Performed By: #### U RDS #### [facility] [address] Carbon dioxide, total [Moles /volume] in Serum or PlasmaOrdered By: Roma Pritchard on 10-01-2023 CO2 [Moles/Vol] 28.3 mmol/L 21.0-31.0 [facility] Comment on above: Performed By: #### U RDS #### [facility] [address] Chloride [Moles/volume] in S bran or PlasmaOrdered By: Roma Pritchard on 10-01-2023 Chloride [Moles/Vol] 104 mmol/L 98-[address] [facility] Comment on above: Performed By: #### U RDS #### [facility] [address] [place] [address] Cholesterol [Mass/volume] in Serum or PlasmaOrdered By: Roma Pritchard on 10-01-2023 Cholesterol [Mass/Vol] 146 mg/dL 140-200 [facility] Comment on above: Chol less than 200 m g/dl low riskChol 201-239 mg/dl borderline riskChol 240 mg/dl and greater high risk Result Comment: Chol less than 200 mg/dl low risk Chol 201-239 mg/dl borderline risk Chol 240 mg/dl and greater high risk Performed By: #### U RDS #### [facility] [address] [place] [address] [place] Cholesterol in LDL Calc [Mas s/Vol]Ordered By: Roma Pritchard on 10-01-2023 Cholesterol in LDL [Mass/Vol] 48 mg/dL 0-100 [facility] Comment on above: LDL ATP III CLASSIFI CATIONLDL less than 100 mg/dL OptimalLDL 100-129 mg/dL Near or above optimalLDL 130-159 mg/dL Borderline highLDL 160-189 mg/dL HighLDL greater than 189 mg/dL Very high Cholesterol in VLDL Calc [Ma ss/Vol]Ordered By: Roma Pritchard on 10-01-2023 Cholesterol in VLDL [Mass/Vol] 33 mg/dL [facility] Complete Blood Count Auto Di ffon 10-01-2023 Mean Corpuscular HGB Conc 33.2 g/dL Normal 32.0-35.0 [facility] Comment on above: Performed By: #### F ER, CMP, [id number], A1C WTH eA, B12, CBC, FOL, FE and TIBC, LIPID ####[facility] [id number] [address] NRBC% 0.1 /100{WBC} Normal 0-0.5 [facility] Comment on above: Performed By: #### F ER, CMP, [id number], A1C WTH eA, B12, CBC, FOL, FE and TIBC, LIPID ####[facility] [id number] [address] Comprehensive Metabolic Pane rebel 10-01-2023 Albumin [Mass/Vol] 4.6 g/dL Normal 3.5-5.7 [facility] Comment on above: Performed By: #### U RDS #### [facility] [address] [place] [address] GFR/1.73 sq M.predicted MDRD (S/P/Bld) [Vol rate/Area] mL/min/{1.73_m2} Normal [facility] Comment on above: Performed By: #### U RDS #### [address] Creatinine [Mass/volume] in Serum or PlasmaOrdered By: Roma Pritchard on 10-01-2023 Creatinine [Mass/Vol] 0.80 mg/dL 0.60-1.20 [facility] Comment on above: Performed By: #### U RDS #### [facility] [address] [place] [address] Erythrocyte distribution wid th [Ratio] by Automated countOrdered By: Roma Pritchard on 10-01-2023 Erythrocyte distribution width (RBC) [Ratio] 14.0 % 11.9-15.3 [facility] Comment on above: Performed By: #### F ER, CMP, [id number], A1C WTH eA, B12, CBC, FOL, FE and TIBC, LIPID ####[facility] [id number] [place] [address] [facility] Erythrocytes [#/volume] in B lood by Automated countOrdered By: Roma Pritchard on 10-01-2023 RBC (Bld) [#/Vol] 4.37 10*6/uL 3.60-5.00 [facility] Comment on above: Performed By: #### F ER, CMP, [id number], A1C WTH eA, B12, CBC, FOL, FE and TIBC, LIPID ####[facility] [id number] [place] [address] [facility] Ferritin [Mass/volume] in Se rum or PlasmaOrdered By: Roma Pritchard on 10-01-2023 Ferritin [Mass/Vol] 46.0 ng/mL 11.0-306.8 [facility] Comment on above: Performed By: #### U RDS #### [facility] [address] [place] [id number] [facility] Folateon 10-01-2023 Folate 16.6 ng/mL Normal >5.9 [facility] Comment on above: Result Comment: Ирина te reference range: >5.9 ng/ml The WHO technical consultation on folate and vitamin b12 deficiencies has determined that folate concentrations less than 4 ng/ml are considered deficient. Performed By: #### U RDS #### [facility] [address] [place] [address] [facility] Folate [Mass/volume] in Seru m or PlasmaOrdered By: Roma Pritchard on 10-01-2023 Folate [Mass/Vol] 16.6 ng/mL >5.9 [facility] Comment on above: Folate reference ran ge: >5.9 ng/mlThe WHO technical consultation on folate and vitamin [id number] has determined that folate concentrations lessthan 4 ng/ml are considered deficient. Glucose [Mass/volume] in Ser um or PlasmaOrdered By: Roma Pritchard on 10-01-2023 Glucose [Mass/Vol] 108 mg/dL High 70-[address] [facility] Comment on above: ADA recommended refe rence rangeRandom Glucose Reference Range is dependent on time and content of last meal. Glucose of more than 200 mg/dL in a nonstressed, ambulatory subject supports the diagnosis of Diabetes Mellitus. Result Comment: [place] Glucose Reference Range is dependent on time and content of last meal. Glucose of more than 200 mg/dL in a nonstressed, ambulatory subject supports the diagnosis of Diabetes Mellitus. ADA recommended reference range Performed By: #### U RDS #### [facility] [address] Glucose mean value [Mass/vol ume] in Blood Estimated from glycated hemoglobinOrdered By: Roma Pritchard on 10-01-2023 Average glucose Estimated from glycated hemoglobin (Bld) [Mass/Vol] 114 mg/dL [facility] Hematocrit [Volume Fraction] of Blood by Automated countOrdered By: Roma Pritchard on 10-01-2023 Hematocrit (Bld) [Volume fraction] 40.8 % 34.0-46.4 [facility] Comment on above: Performed By: #### F ER, CMP, [id number], A1C WTH eA, B12, CBC, FOL, FE and TIBC, LIPID ####[facility] [id number] Hemoglobin A1c percentageOrd ered By: Roma Pritchard on 10-01-2023 HbA1c (Bld) [Mass fraction] 5.6 % 4.3-5.6 [facility] Comment on above: Increased risk for d iabetes: 5.7 - 6.4diabetes: >6.4glycemic control for adults with diabetes: <7.0 Result Comment: Incr eased risk for diabetes: 5.7 - 6.4 diabetes: >6.4 glycemic control for adults with diabetes: <7.0 Performed By: #### U RDS #### [facility] [address] [place] [address] [place] Hemoglobin [Mass/volume] in BloodOrdered By: Roma Pritchard on 10-01-2023 Hemoglobin (Bld) [Mass/Vol] 13.5 g/dL 11.8-15.4 [facility] Comment on above: Performed By: #### F ER, CMP, [id number], A1C WTH eA, B12, CBC, FOL, FE and TIBC, LIPID ####[facility] [place] [id number] [facility] Iron [Mass/volume] in Serum or PlasmaOrdered By: Roma Pritchard on 10-01-2023 Iron [Mass/Vol] 96 ug/dL 50-212 [facility] Comment on above: Performed By: #### U RDS #### [facility] [address] [place] [id number] [facility] Iron and TIBC Profileon % Iron Saturation 21.1 % Normal 20-50 [facility] Comment on above: Performed By: #### U RDS #### [facility] [address] [place] [id number] [facility] Total Iron Binding Capacity 455 ug/dL High 255-450 [facility] Comment on above: Performed By: #### U RDS #### [facility] [address] [place] [id number] [facility] Iron binding capacity [Mass/ volume] in Serum or PlasmaOrdered By: Roma Pritchard on 10-01-2023 Iron binding capacity [Mass/Vol] 455 ug/dL High 255-450 [facility] Iron saturation [Mass Fracti on] in Serum or PlasmaOrdered By: Roma Pritchard on 10-01-2023 Iron saturation [Mass fraction] 21.1 % 20-50 [facility] Leukocytes [#/volume] correc dinora for nucleated erythrocytes in Blood by Automated counOrdered By: Roma Pritchard on 10-01-2023 WBC corrected for nucl RBC Auto (Bld) [#/Vol] 6.6 10*3/uL 3.8-11.6 [facility] Leukocytes [#/volume] in Blo od by Automated countOrdered By: Roma Pritchard on 10-01-2023 WBC (Bld) [#/Vol] 6.6 10*3/uL 3.8-11.[address] [facility] Comment on above: Performed By: #### F ER, CMP, [id number], A1C WTH eA, B12, CBC, FOL, FE and TIBC, LIPID ####[facility] [id number] [place] [id number] [facility] Lipid Panelon 10-01-2023 LDL Cholesterol,Calculate d 48 mg/dL Normal 0-100 [facility] Comment on above: Result Comment: LDL ATP III CLASSIFICATION LDL less than 100 mg/dL Optimal LDL 100-129 mg/dL Near or above optimal LDL 130-159 mg/dL Borderline high LDL 160-189 mg/dL High LDL greater than 189 mg/dL Very high Performed By: #### U RDS #### [facility] [address] Triglyceride w/Reflex 166 mg/dL High 0-149 [facility] Comment on above: Result Comment: TRIG ATP III CLASSIFICATION TRIG less than 150 mg/dL Normal TRIG 150-199 mg/dL Borderline high TRIG 200-500 mg/dL High TRIG greater than 500 mg/dL Very high Standard traceable to the Center for Disease Conrtrol and Prevention (CDC) test method. Performed By: #### U RDS #### [address] VLDL CHOLESTEROL 33 mg/dL Normal [facility] Comment on above: Performed By: #### U RDS #### [address] Lymphocytes [#/volume] in Bl ood by Automated countOrdered By: Roma Pritchard on 10-01-2023 Lymphocytes (Bld) [#/Vol] 1.3 10*3/uL 1.00-4.8 [facility] Comment on above: Performed By: #### F ER, CMP, [id number], A1C WTH eA, B12, CBC, FOL, FE and TIBC, LIPID ####[place] [address] [place] Lymphocytes/100 leukocytes i n Blood by Automated countOrdered By: Roma Pritchard on 10-01-2023 Lymphocytes/100 WBC (Bld) 20.0 % . [facility] Comment on above: Performed By: #### F ER, CMP, [id number], A1C WTH eA, B12, CBC, FOL, FE and TIBC, LIPID ####[address] MCH [Entitic mass] by Automa dinora countOrdered By: Roma Pritchard on 10-01-2023 MCH (RBC) [Entitic mass] 30.9 pg 24.7-34.3 [facility] Comment on above: Performed By: #### F ER, CMP, [id number], A1C WTH eA, B12, CBC, FOL, FE and TIBC, LIPID ####[place] [id number] [address] MCHC Auto (RBC) [Mass/Vol]Or dered By: Roma Pritchard on 10-01-2023 MCHC (RBC) [Mass/Vol] 33.2 g/dL 32.0-35.0 [facility] MCV [Entitic volume] by Auto mated countOrdered By: Roma Pritchard on 10-01-2023 MCV (RBC) [Entitic vol] 93.2 fL 80-100 [facility] Comment on above: Performed By: #### F ER, CMP, [id number], A1C WTH eA, B12, CBC, FOL, FE and TIBC, LIPID ####[place] [id number] Neutrophils [#/volume] in Bl ood by Automated countOrdered By: Roma Pritchard on 10-01-2023 Neutrophils (Bld) [#/Vol] 4.6 10*3/uL 1.8-7.7 [facility] Comment on above: Performed By: #### F ER, CMP, [id number], A1C WTH eA, B12, CBC, FOL, FE and TIBC, LIPID ####[address] No Panel InformationOrdered By: Roma Pritchard on 10-01-2023 Estimated GFR (CKD-EPI) > 60.0 mL/Min [facility] Creatinine Clearance (Chem N/A [facility] Nucleated erythrocytes [Pres ence] in Blood by Automated countOrdered By: Roma Pritchard on 10-01-2023 Nucleated RBC Auto Ql (Bld) 0.1 /100{WBC} 0-0.5 [facility] Platelet mean volume [Entiti c volume] in Blood by Automated countOrdered By: Roma Pritchard on 10-01-2023 Platelet mean volume (Bld) [Entitic vol] 10.1 fL 6.3-10.7 [facility] Comment on above: Performed By: #### F ER, CMP, [id number], A1C WTH eA, B12, CBC, FOL, FE and TIBC, LIPID ####[facility] [id number] [address] Platelets [#/volume] in Bloo d by Automated countOrdered By: Roma Pritchard on 10-01-2023 Platelets (Bld) [#/Vol] 226 10*3/uL 150-450 [facility] Comment on above: Performed By: #### F ER, CMP, [id number], A1C WTH eA, B12, CBC, FOL, FE and TIBC, LIPID ####[address] Potassium [Moles/volume] in Serum or PlasmaOrdered By: Roma Pritchard on 10-01-2023 Potassium [Moles/Vol] 4.1 mmol/L 3.5-5.1 [facility] Comment on above: Performed By: #### U RDS #### [address] Protein [Mass/volume] in Ser um or PlasmaOrdered By: Roma Pritchard on 10-01-2023 Protein [Mass/Vol] 7.0 g/dL 6.4-8.[address] [facility] Comment on above: Performed By: #### U RDS #### [facility] [address] [place] [address] Serum globulin measurement b y calculation (mass/volume)Ordered By: Roma Pritchard on 10-01-2023 Globulin (S) [Mass/Vol] 2.4 g/dL [facility] Comment on above: Performed By: #### U RDS #### [address] Serum or plasma albumin/glob ulin mass ratioOrdered By: Roma Pritchard on 10-01-2023 Albumin/Globulin [Mass ratio] 1.9 {ratio} [facility] Comment on above: Performed By: #### U RDS #### [address] [place] [address] [place] Serum or plasma anion gap de terminationOrdered By: Roma Pritchard on 10-01-2023 Anion gap [Moles/Vol] 12.8 mmol/L 6.0-15.0 [facility] Comment on above: Performed By: #### U RDS #### [facility] [address] Serum or plasma high density lipoprotein (HDL) cholesterol measurementOrdered By: Roma Pritchard on 10-01-2023 Cholesterol in HDL [Mass/Vol] 65 mg/dL - [facility] Comment on above: HDL CHOL ATP-III CLA SSIFICATION Cardiovascular RiskHDL > or equal to 60 mg/dL LOWHDL < 40 mg/dL HIGH Result Comment: HDL CHOL ATP-III CLASSIFICATION Cardiovascular Risk HDL > or equal to 60 mg/dL LOW HDL < 40 mg/dL HIGH Performed By: #### U RDS #### [address] Serum or plasma total choles terol/high density lipoprotein (HDL) cholesterol mass ratOrdered By: Roma Pritchard on 10-01-2023 Cholesterol.total/Cho lesterol in HDL [Mass ratio] 2.2 {ratio} <5.0 [facility] Comment on above: Performed By: #### U RDS #### [address] Sodium [Moles/volume] in Ser um or PlasmaOrdered By: Roma Pritchard on 10-01-2023 Sodium [Moles/Vol] 141 mmol/L 136-[address] [facility] Comment on above: Performed By: #### U RDS #### [facility] [address] [place] [address] Transferrin [Mass/volume] in Serum or PlasmaOrdered By: Roma Pritchard on 10-01-2023 Transferrin [Mass/Vol] 325 mg/dL 203-362 [facility] Comment on above: Performed By: #### U RDS #### [address] Triglyceride [Mass/volume] i n Serum or PlasmaOrdered By: Roma Pritchard on 10-01-2023 Triglyceride [Mass/Vol] 166 mg/dL High 0-149 [facility] Comment on above: TRIG ATP III CLASSIF ICATIONTRIG less than 150 mg/dL NormalTRIG 150-199 mg/dL Borderline highTRIG 200-500 mg/dL High TRIG greater than 500 mg/dL Very highStandard traceable to the Center for Disease Conrtrol and Prevention (CDC) test method. Urea nitrogen [Mass/volume] in Serum or PlasmaOrdered By: Roma Pritchard on 10-01-2023 Urea nitrogen [Mass/Vol] 21 mg/dL 7-25 [facility] Comment on above: Performed By: #### U RDS #### [facility] [address] [place] [address] Vitamin B12 ser/plasOrdered By: Roma Pritchard on 10-01-2023 Cobalamin (Vitamin B12) [Mass/Vol] 1062 pg/mL High 180-914 [facility] Comment on above: Performed By: #### U RDS #### [facility] [address] [place], [place] [id number] [facility] Vitamin D 25 Hydroxy Totalon 10-01-2023 Vitamin D 25 Hydroxy Total 32.9 ng/mL Normal 30-100 [facility] Comment on above: Result Comment: AMBIKA MIN D STATUS 25(OH)VITAMIN D RANGE (ng/mL) Deficient <20 Insufficient 20 to <30 Sufficient 30 to 100 Reference: Bro MF,Salo NC, Iqra PAGE, et al. Evaluation,treatment, and prevention of vitamin D deficiency; an Endocrine Society clinical practice guideline. JCEM. 2010; 96(7):1911-30. PERFORMED BY: [place] [address] PATHOLOGIST MARINE FIRER CIRA GRAHAM M.D. Performed By: #### U RDS #### [facility] [address] [place], [place] [id number] [facility] Vitamin D+Metabolites [Mass/ volume] in Serum or PlasmaOrdered By: Roma Pritchard on 10-01-2023 Vitamin D+Metabolites [Mass/Vol] 32.9 ng/mL 30-100 [facility] Comment on above: VITAMIN D STATUS 25( [place])VITAMIN D RANGE (ng/mL) Deficient <20 Insufficient 20 to <30Sufficient 30 to 100Reference: Bro MF,Salo NC, Iqra PAGE, et al. Evaluation,treatment, and prevention of vitamin D deficiency; an Endocrine Society clinical practice guideline. JCEM. 2010; 96(7):1911-30. Lab Reportson 06-17-2023 Lab Reports [id number] Normal [facility] RAD - CT Reporton 06-16-2023 RAD - CT Report [id number] Normal [facility] RAD - CT Reporton 06-12-2023 RAD - CT Report [id number] Normal [facility] CT abdomen pelvis wo conon 0 06-11-2023 CT abdomen pelvis wo [facility] [place] [address] CT Scan Report Signed Patient: Teagan Gonsales MR#: [id number] : 1955 Acct:[id number] Age/Sex: 67 / F ADM Date: 06/11/23 Loc: [facility] Room: Type: [facility] Attending Dr: Mariana Duong PA-C Copies to: Mariana Duong PA-C Ordering Provider: Mariana Duong PA-C Date of Service: 06/11/23 CT/CT abdomen pelvis wo con: N20.0 CT ABDOMEN AND PELVIS WITHOUT INTRAVENOUS CONTRAST: CLINICAL HISTORY: Bilateral flank pain. COMPARISON: CT abdomen and pelvis 12/25/2019 TECHNIQUE: Spiral images were obtained through the abdomen and pelvis without intravenous contrast. This CT exam was performed using one or more following dose reduction techniques: Automated exposure control, adjustment of the mA and/or kV according to patient size, or use of iterative reconstruction technique. FINDINGS: Lung Bases: [Mild lung scarring.] Organs:Suboptimal evaluation due to lack of IV contrast. Hepatic steatosis. Liver gallbladder pancreas and adrenal glands appear unremarkable. Cyst left kidney. No stone or hydronephrosis of either kidney. Abdominal aorta appears normal in caliber.[ GI: Stomach is grossly unremarkable. Small bowel appears nondilated. 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 No acute gross abnormality is seen.] Peritoneum/Retroperitoneum :No free air, free fluid or lymphadenopathy.[ Abd wall/Bones:Abdominal wall demonstrates no acute findings. Osseous structures demonstrate degenerative change.[ CT/CT abdomen pelvis wo con IMPRESSION: No acute findings. No obstructive uropathy. Impression dictated by: Martin Ruano Jr., D.O.06/11/2023 1:19 PM Dictation Location: [place] [address] Transcribed By: MITCH 06/11/23 131 Dictated By: Martin Ruano Jr, DO 06/11/231316 Signed By: 06/11/23 1319 Normal [facility] Ambulatory Visit Summaryon 0 05-27-2023 Ambulatory Visit Summary TEAGAN GONSALES :1955 Visit Date:05/27/2023 Ambulatory Visit Instructions Your Diagnosis Kidney stones Tests Performed CT Abdomen/Pelvis w/o Contrast -- Results Pending -- XR Abdomen 1 View -- Results Pending -- Please visit your patient portal for your results or contact your primary care physician. Your Care Team Attending Physician - MARIANA DUONG PA-C Primary Care Physician - Roma Pritchard DO This Is Your Medications List Turmeric alprazolam (Xanax) atorvastatin (atorvastatin 20 mg Tab) buPROPion (Wellbutrin SR 100 mg Tab-ER) carbonyl iron (Iron Chews) celecoxib (celecoxib 200 mg Cap) cyanocobalamin (Vitamin B12) ergocalciferol (Vitamin D) esomeprazole (esomeprazole 40 mg Cap-EC) hydrochlorothiazide (hydrochlorothiazide 25 mg oral tablet) losartan (losartan 100 mg Tab) Procedures Performed Breast surgery, Colonoscopy, Hip replacement, Tubal ligation. Discharge Vitals Temperature (Temporal Artery) 37 ?C Heart Rate (Peripheral) 77 Respiratory Rate 16 Blood Pressure 132/80 Height 155 cm Height 61 in Weight 68 kg Weight 149.6 lb BMI 28.3 What to do next Scheduled Follow-Up Appointments Thursday 8:40 AM EST With: MARIANA DUONG PA-C Where: [facility] Shireen Normal [facility] Formson 05-27-2023 Forms [id number] Normal [facility] Patient Educationon 05-27-19 24 Patient Education Urology Kidney Stones Kidney stones are rock-like masses that form inside of the kidneys. Kidneys are organs that make pee (urine). A kidney stone may move into other parts of the urinary tract, including: ? The tubes that connect the kidneys to the bladder (ureters). ? The bladder. ? The tube that carries urine out of the body (urethra). Kidney stones can cause very bad pain and can block the flow of pee. The stone usually leaves your body (passes) through your pee. You may need to have a doctor take out the stone. What are the causes? Kidney stones may be caused by: ? A condition in which certain glands make too much parathyroid hormone (primary hyperparathyroidism). ? A buildup of a type of crystals in the bladder made of a chemical called uric acid. The body makes uric acid when you eat certain foods. ? Narrowing (stricture) of one or both of the ureters. ? A kidney blockage that you were born with. ? Past surgery on the kidney or the ureters, such as gastric bypass surgery. What increases the risk? You are more likely to develop this condition if: ? You have had a kidney stone in the past. ? You have a family history of kidney stones. ? You do not drink enough water. ? You eat a diet that is high in protein, salt (sodium), or sugar. ? You are overweight or very overweight (obese). What are the signs or symptoms? Symptoms of a kidney stone may include: ? Pain in the side of the belly, right below the ribs (flank pain). Pain usually spreads (radiates) to the groin. ? Needing to pee often or right away (urgently). ? Pain when going pee (urinating). ? Blood in your pee (hematuria). ? Feeling like you may vomit (nauseous). ? Vomiting. ? Fever and chills. How is this treated? Treatment depends on the size, location, and makeup of the kidney stones. The stones will often pass out of the body through peeing. You may need to: ? Drink more fluid to help pass the stone. In some cases, you may be given fluids through an IV tube put into one of your veins at the hospital. ? Take medicine for pain. ? Make changes in your diet to help keep kidney stones from coming back. Sometimes, medical procedures are needed to remove a kidney stone. This may involve: ? A procedure to break up kidney stones using a beam of light (laser) or shock waves. ? Surgery to remove the kidney stones. Follow these instructions at home: Medicines ? Take lges-szy-gjrbobv and prescription medicines only as told by your doctor. ? Ask your doctor if the medicine prescribed to you requires you to avoid driving or using heavy machinery. Eating and drinking ? Drink enough fluid to keep your pee pale yellow. You may be told to drink at least 8?10 glasses of water each day. This will help you pass the stone. ? If told by your doctor, change your diet. This may include: ? Limiting how much salt you eat. ? Eating more fruits and vegetables. ? Limiting how much meat, poultry, fish, and eggs you eat. ? Follow instructions from your doctor about eating or drinking restrictions. General instructions ? Collect pee samples as told by your doctor. You may need to collect a pee sample: ? 24 hours after a stone comes out. ? 8?12 weeks after a stone comes out, and every 6?12 months after that. ? Strain your pee every time you pee (urinate), for as long as told. Use the strainer that your doctor recommends. ? Do not throw out the stone. Keep it so that it can be tested by your doctor. ? Keep all follow-up visits as told by your doctor. This is important. You may need follow-up tests. How is this prevented? To prevent another kidney stone: ? Drink enough fluid to keep your pee pale yellow. This is the best way to prevent kidney stones. ? Eat healthy foods. ? Avoid certain foods as told by your doctor. You may be told to eat less protein. ? Stay at a healthy weight. Where to find more information ? National Kidney Foundation (NKF): www.kidney.org ? [facility] ([facility] www.urologyhealth.org Contact a doctor if: ? You have pain that gets worse or does not get better with medicine. Get help right away if: ? You have a fever or chills. ? You get very bad pain. ? You get new pain in your belly (abdomen). ? You pass out (faint). ? You cannot pee. Summary ? Kidney stones are rock-like masses that form inside of the kidneys. ? Kidney stones can cause very bad pain and can block the flow of pee. ? The stones will often pass out of the body through peeing. ? Drink enough fluid to keep your pee pale yellow. This information is not intended to replace advice given to you by your health care provider. Make sure you discuss any questions you have with your health care provider. Document Revised: 10/14/2021 Document Reviewed: 10/14/2021 [employer] Patient Education ? 2022 [employer] [facility] Urology Office/Clinic Noteon 05-27-2023 Urology Office/Clinic Note Chief Complaint Pt is here for 5 month w/ KUB HPI Staff Pt here for 3-4 week with KUB and GISSELLE. KUB 05/19/23 - No visible ureteral stones. 8 mm stone just below the R L1 transverse process possibly a stone in the R renal pelvis. 5.2 mm stone LUP. Renal US 05/19/23 - No solid cortical mass, hydro, or obstructing nephrolithiasis. Echogenic foci 3 mm nonobstructing L nephrolithiasis. 3.8 cm L simple cortical cyst. Dysuria: denies Incomplete bladder emptying: denies Hematuria: denies Frequency: every hour due to fluid Urgency: mild Nocturia: 2x a night Stream: steady stream Leaking: denies Post void dripping: denies Wearing pads/ Depends: denies Urge incontinence: denies Stress incontinence: denies Incontinence without Sensory Awareness: denies Abdominal pain: denies Flank pain: RT side flank pain Sexual complaints: _ History of Present Illness staff HPI reviewed and agree. Review of Systems PHQ Score Initial Depression Screen Score: 0 SCORE no fever, chills, malaise, myalgia. no rash/lesions. no chest pain, palpitations, or SOB. no abdominal pain, nausea, vomiting. no unilateral calf swelling, redness, pain Physical Exam Vitals & Measurements T: 37 ?C(Temporal Artery) HR: 77(Peripheral) RR: 16 BP: 132/80 HT: 61 in HT: 155 cm WT: 68 kg WT: 149.6 lb BMI: 28.3 General: nontoxic, NAD Mouth: moist mucosa Lungs: normal respiratory effort Cardio: regular rate, good distal perfusion Abdomen: nondistended, no suprapubic distention or tenderness, no CVA tenderness Neurologic: Grossly normal Skin: No rashes or suspicious lesions Assessment/Plan Prior DLS pt. 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 Oxybutynin therapy managed by [facility], has not been taking it but has it at home if needed [1] 10/17/22 - BUN 23, Cr 0.73, eGFR > 60 1. Kidney stones (N20.0: Calculus of kidney) S/p R stone extraction 12/25/19. Stone analysis - 80% ca ox mono, 20% ca ox di KUB 12/30/21 - Neg for stones. KUB 01/02/23 - 3 mm calculus over inferior aspect of the right kidney. KUB 04/07/23 [facility] - 7 mm calcification projecting over left L2 transverse process. Per EMR messages, pt had KUB done in March vs prior to f/u in December as she wanted to see if stone increased in size. Pt only had mild intermittent back pain 04/08/23. Due to KUB results, pt was recommended to get GISSELLE to ensure no hydro. Also was given Tamsulosin and advised to strain urine for stone passage. GISSELLE 04/11/23 [facility] - Nonobstructing left nephrolithiasis. No hydro. After GISSELLE, pt was then to repeat imaging to verify stone location and r/o obstruction and was recommended to make f/u to discuss these results. KUB 05/19/23 [facility] - 8 mm calcification just below the right L1 transverse process possibly a stone in right renal pelvis. 5.2 mm calcification LUP. GISSELLE 05/19/23 [facility] - No R obstructing nephrolithiasis or hydro. 3 mm nonobstructing left nephrolithiasis. Denies flank pain or stone passage at OV today. Reviewed all recent imaging results w/ pt. Advised pt GISSELLE and KUB are not as effective at evaluating stones and tend to overestimate. Reports are very confusing as the KUB in Mar was mentioning a large ureteral stone on the left but now the KUB in April is saying it's on the Right. At this point I think the best bet is to get a CT scan to be sure of sizes/location. Pt would like to get it done at [facility] instead of [facility] and this is good bc then I can independently review the image. Discussed if stones are nonobstructing and small, pt can keep f/u on 01/12/24. If any stones are in the ureter, will need sooner f/u to discuss surgical intervention. If stones are as large (even in kidney), will definitely need to consider surgical intervention. No longer taking Vit C or Ca+Vit D. Stopped both bc she was worried about stones. Pt inquired if she should continue to stay off of these for stone prevention. Urine pH today 5.0. Recommended pt to restart the Ca+vitD as bone health takes priority over stone prevention at this time. Can resume Vit C bc typically more acidic urine helps w caox stone prevention. Discussed some dietary modifications to help prevent kidney stone growth/formation. Also discussed doing a metabolic workup in the future to better manage kidney stones and better recommend either dietary changes or medical management. Pt would like to proceed with this. -CT AP wo con @ [facility] now, see above for next steps. -Complete metabolic workup and KUB prior to next appt -Has f/u scheduled 01/12/24, can review KUB and [employer] results at that time Total time spent reviewing previous notes/results/external documents, preparing the chart, conducting the encounter with the patient and family, ordering tests/medications, and documenting the encounter was 30 minutes. Follow-up With When Contact Information MARIANA DUONG PA-C, URL [address] [place] [address] [phone] Additional Instructions: f/u pending CT AP wo con results Patient Education Kidney Stones, Eas (more content not included)... Normal [facility] Comment on above: Result Comment: Elec tronically Signed By: MARIANA DUONG PA-C\.br\Date and Time Signed: 05/27/23 10:45 EDT\.br\Electronically Co-Signed By: Miranda Javed\.br\Date and Time Co-Signed: 05/27/23 09:54 EDT RAD - MISCon 05-21-2023 RAD - MISC [id number] Normal [facility] RAD - Ultrasound Reporton RAD - Ultrasound Report [id number]#1.00TIFF Normal [facility] Reminderson 05-21-2023 Reminders - From: Susan Devine MA To: EU - Recalls Lue; Sent: 04/16/2023 11:09:06 EST Show up: 05/04/2023 11:08:00 EDT Subject: GISSELLE&KUB Due Date/Time: 05/18/2023 11:09:00 EDT Reminder/Recall Pt needs scheduled for GISSELLE & KUB prior to appt 05/27/23. Called pt and reminded her to have GISSELLE/KUB done. Pt states she is having both done on 05/21/23 @ [facility] in the morning. GISSELLE/KUB in pt chart for appointment Normal [facility] RAD - Ultrasound Reporton RAD - Ultrasound Report [id number]#[id number] Normal [facility] RAD - MISCon 04-07-2023 RAD - MISC [id number] Normal [facility] A1C with Estimated Average G [facility] 03-25-2023 Glucose [Mass/Vol] 114 mg/dL Normal [facility] Comment on above: Result Comment: PERF ORMED BY: [facility] [address] [place] [address] PATHOLOGIST MARINE FIRER CIRA GRAHAM M.D. Performed By: #### C BC, DINA, LIPID, A1C WTH eA, B12, FE and TIBC, CMP, [id number], TSH3, FOL ####[facility] [id number] [place] [address] [place] Alanine aminotransferase [En zymatic activity/volume] in Serum or PlasmaOrdered By: Roma Pritchard on 03-25-2023 ALT [Catalytic activity/Vol] 17 U/L Normal 7-52 [facility] Comment on above: Performed By: #### C BC, DINA, LIPID, A1C WTH eA, B12, FE and TIBC, CMP, [id number], TSH3, FOL #### [facility] C[facility] [address] [place] [address] [place] Albumin [Mass/volume] in Ser um or Plasma by Bromocresol green (BCG) dye binding methoOrdered By: Roma Pritchard on 03-25-2023 Albumin BCG dye [Mass/Vol] 4.3 g/dL 3.5-5.7 [facility] Alkaline phosphatase [Enzyma tic activity/volume] in Serum or PlasmaOrdered By: Roma Pritchard on 03-25-2023 ALP [Catalytic activity/Vol] 74 U/L Normal 34-104 [facility] Comment on above: Performed By: #### C BC, DINA, LIPID, A1C WTH eA, B12, FE and TIBC, CMP, [id number], TSH3, FOL #### [facility] Ctr [address] [place] [address] [place] Aspartate aminotransferase [ Enzymatic activity/volume] in Serum or PlasmaOrdered By: Roma Pritchard on 03-25-2023 AST [Catalytic activity/Vol] 16 U/L Normal 13-39 [facility] Comment on above: Performed By: #### C BC, DINA, LIPID, A1C WTH eA, B12, FE and TIBC, CMP, [id number], TSH3, FOL #### [facility] [address] [place] [address] [place] Automated basophil %Ordered By: Roma Pritchard on 03-25-2023 Basophils/100 WBC (Bld) 0.7 % Normal . [facility] Comment on above: Performed By: #### C BC, DINA, LIPID, A1C WTH eA, B12, FE and TIBC, CMP, [id number], TSH3, FOL #### [facility] [address] [place] [address] [place] Automated basophil countOrde red By: Roma Pritchard on 03-25-2023 Basophils (Bld) [#/Vol] 0.0 10*3/uL Normal 0.0-0.2 [facility] Comment on above: Result Comment: PERF ORMED BY: [place] [address] PATHOLOGIST MARINE FIRER CIRA GRAHAM M.D. Performed By: #### C BC, DINA, LIPID, A1C WTH eA, B12, FE and TIBC, CMP, [id number], TSH3, FOL #### [address] Automated blood monocyte cou ntOrdered By: Roma Pritchard on 03-25-2023 Monocytes (Bld) [#/Vol] 0.4 10*3/uL Normal 0.0-0.8 [facility] Comment on above: Performed By: #### C BC, DINA, LIPID, A1C WTH eA, B12, FE and TIBC, CMP, [id number], TSH3, FOL #### [address] Automated eosinophil %Ordere d By: Roma Pritchard on 03-25-2023 Eosinophils/100 WBC (Bld) 1.8 % Normal . [facility] Comment on above: Performed By: #### C BC, DINA, LIPID, A1C WTH eA, B12, FE and TIBC, CMP, [id number], TSH3, FOL #### [address] Automated eosinophil countOr dered By: Roma Pritchard on 03-25-2023 Eosinophils (Bld) [#/Vol] 0.1 10*3/uL Normal 0.0-0.45 [facility] Comment on above: Performed By: #### C BC, DINA, LIPID, A1C WTH eA, B12, FE and TIBC, CMP, [id number], TSH3, FOL #### [address] Automated monocyte %Ordered By: Roma Pritchard on 03-25-2023 Monocytes/100 WBC (Bld) 7.1 % Normal . [facility] Comment on above: Performed By: #### C BC, DINA, LIPID, A1C WTH eA, B12, FE and TIBC, CMP, [id number], TSH3, FOL #### [facility] [address] Automated neutrophil %Ordere d By: Roma Pritchard on 03-25-2023 Neutrophils/100 WBC (Bld) 63.9 % Normal . [facility] Comment on above: Performed By: #### C BC, DINA, LIPID, A1C WTH eA, B12, FE and TIBC, CMP, [id number], TSH3, FOL #### [facility] [address] Bilirubin.total [Mass/volume ] in Serum or PlasmaOrdered By: Roma Pritchard on 03-25-2023 Bilirubin [Mass/Vol] 0.6 mg/dL Normal 0.3-1.[address] [facility] Comment on above: Performed By: #### C BC, DINA, LIPID, A1C WTH eA, B12, FE and TIBC, CMP, [id number], TSH3, FOL #### [address] Calcium [Mass/volume] in Ser um or PlasmaOrdered By: Roma Pritchard on 03-25-2023 Calcium [Mass/Vol] 9.8 mg/dL Normal 8.6-10.[address] [facility] Comment on above: Performed By: #### C BC, DINA, LIPID, A1C WTH eA, B12, FE and TIBC, CMP, [id number], TSH3, FOL #### [facility] [address] Carbon dioxide, total [Moles /volume] in Serum or PlasmaOrdered By: Roma Pritchard on 03-25-2023 CO2 [Moles/Vol] 33.1 mmol/L High 21.0-31.0 [facility] Comment on above: Performed By: #### C BC, DINA, LIPID, A1C WTH eA, B12, FE and TIBC, CMP, [id number], TSH3, FOL #### [facility] [address] [place] [id number] [place] Chloride [Moles/volume] in S bran or PlasmaOrdered By: Roma Pritchard on 03-25-2023 Chloride [Moles/Vol] 103 mmol/L Normal 98-[address] [facility] Comment on above: Performed By: #### C BC, DINA, LIPID, A1C WTH eA, B12, FE and TIBC, CMP, [id number], TSH3, FOL #### [facility] C[facility] [address] [place] [id number] [place] Cholesterol [Mass/volume] in Serum or PlasmaOrdered By: Roma Pritchard on 03-25-2023 Cholesterol [Mass/Vol] 162 mg/dL Normal 140-200 [facility] Comment on above: Chol less than 200 m g/dl low riskChol 201-239 mg/dl borderline riskChol 240 mg/dl and greater high risk Result Comment: Chol less than 200 mg/dl low risk Chol 201-239 mg/dl borderline risk Chol 240 mg/dl and greater high risk Performed By: #### C BC, DINA, LIPID, A1C WTH eA, B12, FE and TIBC, CMP, [id number], TSH3, FOL ####[facility] [id number] Cholesterol in LDL Calc [Mas s/Vol]Ordered By: Roma Pritchard on 03-25-2023 Cholesterol in LDL [Mass/Vol] 60 mg/dL 0-100 [facility] Comment on above: LDL ATP III CLASSIFI CATIONLDL less than 100 mg/dL OptimalLDL 100-129 mg/dL Near or above optimalLDL 130-159 mg/dL Borderline highLDL 160-189 mg/dL HighLDL greater than 189 mg/dL Very high Cholesterol in VLDL Calc [Ma ss/Vol]Ordered By: Roma Pritchard on 03-25-2023 Cholesterol in VLDL [Mass/Vol] 19 mg/dL [facility] Complete Blood Count Auto Di ffon 03-25-2023 Mean Corpuscular HGB Conc 33.4 g/dL Normal 32.0-35.0 [facility] Comment on above: Performed By: #### C BC, DINA, LIPID, A1C WTH eA, B12, FE and TIBC, CMP, [id number], TSH3, FOL #### [address] NRBC% 0.1 /100{WBC} Normal 0-0.5 [facility] Comment on above: Performed By: #### C BC, DINA, LIPID, A1C WTH eA, B12, FE and TIBC, CMP, [id number], TSH3, FOL #### [address] Comprehensive Metabolic Pane rebel 03-25-2023 Albumin [Mass/Vol] 4.3 g/dL Normal 3.5-5.7 [facility] Comment on above: Performed By: #### C BC, DINA, LIPID, A1C WTH eA, B12, FE and TIBC, CMP, [id number], TSH3, FOL #### [address] GFR/1.73 sq M.predicted MDRD (S/P/Bld) [Vol rate/Area] mL/min/{1.73_m2} Normal [facility] Comment on above: Performed By: #### C BC, DINA, LIPID, A1C WTH eA, B12, FE and TIBC, CMP, [id number], TSH3, FOL #### [address] Creatinine [Mass/volume] in Serum or PlasmaOrdered By: Roma Pritchard on 03-25-2023 Creatinine [Mass/Vol] 0.76 mg/dL Normal 0.60-1.20 [facility] Comment on above: Performed By: #### C BC, DINA, LIPID, A1C WTH eA, B12, FE and TIBC, CMP, [id number], TSH3, FOL #### [address] Erythrocyte distribution wid th [Ratio] by Automated countOrdered By: Roma Pritchard on 03-25-2023 Erythrocyte distribution width (RBC) [Ratio] 14.2 % Normal 11.9-15.3 [facility] Comment on above: Performed By: #### C BC, DINA, LIPID, A1C WTH eA, B12, FE and TIBC, CMP, [id number], TSH3, FOL #### [facility] C[facility] [address] [place] [id number] [facility] Erythrocytes [#/volume] in B lood by Automated countOrdered By: Roma Pritchard on 03-25-2023 RBC (Bld) [#/Vol] 4.27 10*6/uL Normal 3.60-5.00 [facility] Comment on above: Performed By: #### C BC, DINA, LIPID, A1C WTH eA, B12, FE and TIBC, CMP, [id number], TSH3, FOL #### [facility] [address] [place] [id number] [facility] Ferritin [Mass/volume] in Se rum or PlasmaOrdered By: Roma Pritchard on 03-25-2023 Ferritin [Mass/Vol] 19.7 ng/mL Normal 11.0-306.8 [facility] Comment on above: Performed By: #### C BC, DINA, LIPID, A1C WTH eA, B12, FE and TIBC, CMP, [id number], TSH3, FOL #### [facility] [address] [place] [id number] [facility] Folateon 03-25-2023 Folate 15.8 ng/mL Normal >5.9 [facility] Comment on above: Result Comment: Ирина te reference range: >5.9 ng/ml The WHO technical consultation on folate and vitamin b12 deficiencies has determined that folate concentrations less than 4 ng/ml are considered deficient. Performed By: #### C BC, DINA, LIPID, A1C WTH eA, B12, FE and TIBC, CMP, [id number], TSH3, FOL ####[facility] [id number] [place] [address] [facility] Folate [Mass/volume] in Seru m or PlasmaOrdered By: Roma Pritchard on 03-25-2023 Folate [Mass/Vol] 15.8 ng/mL >5.9 [facility] Comment on above: Folate reference ran ge: >5.9 ng/mlThe WHO technical consultation on folate and vitamin [id number] has determined that folate concentrations lessthan 4 ng/ml are considered deficient. Glucose [Mass/volume] in Ser um or PlasmaOrdered By: Roma Pritchard on 03-25-2023 Glucose [Mass/Vol] 96 mg/dL Normal 70-[address] [facility] Comment on above: ADA recommended refe rence rangeRandom Glucose Reference Range is dependent on time and content of last meal. Glucose of more than 200 mg/dL in a nonstressed, ambulatory subject supports the diagnosis of Diabetes Mellitus. Result Comment: [place] om Glucose Reference Range is dependent on time and content of last meal. Glucose of more than 200 mg/dL in a nonstressed, ambulatory subject supports the diagnosis of Diabetes Mellitus. ADA recommended reference range Performed By: #### C BC, DINA, LIPID, A1C WTH eA, B12, FE and TIBC, CMP, [id number], TSH3, FOL #### [facility] [address] Glucose mean value [Mass/vol ume] in Blood Estimated from glycated hemoglobinOrdered By: Roma Pritchard on 03-25-2023 Average glucose Estimated from glycated hemoglobin (Bld) [Mass/Vol] 114 mg/dL [facility] Hematocrit [Volume Fraction] of Blood by Automated countOrdered By: Roma Pritchard on 03-25-2023 Hematocrit (Bld) [Volume fraction] 39.7 % Normal 34.0-46.4 [facility] Comment on above: Performed By: #### C BC, DINA, LIPID, A1C WTH eA, B12, FE and TIBC, CMP, [id number], TSH3, FOL #### [facility] [address] Hemoglobin A1c percentageOrd ered By: Roma Pritchard on 03-25-2023 HbA1c (Bld) [Mass fraction] 5.6 % Normal 4.3-5.6 [facility] Comment on above: Increased risk for d iabetes: 5.7 - 6.4diabetes: >6.4glycemic control for adults with diabetes: <7.0 Result Comment: Incr eased risk for diabetes: 5.7 - 6.4 diabetes: >6.4 glycemic control for adults with diabetes: <7.0 Performed By: #### C BC, DINA, LIPID, A1C WTH eA, B12, FE and TIBC, CMP, [id number], TSH3, FOL ####[facility] [id number] Hemoglobin [Mass/volume] in BloodOrdered By: Roma Pritchard on 03-25-2023 Hemoglobin (Bld) [Mass/Vol] 13.2 g/dL Normal 11.8-15.4 [facility] Comment on above: Performed By: #### C BC, DINA, LIPID, A1C WTH eA, B12, FE and TIBC, CMP, [id number], TSH3, FOL #### [facility] [address] Iron [Mass/volume] in Serum or PlasmaOrdered By: Roma Pritchard on 03-25-2023 Iron [Mass/Vol] 77 ug/dL Normal 50-212 [facility] Comment on above: Performed By: #### C BC, DINA, LIPID, A1C WTH eA, B12, FE and TIBC, CMP, [id number], TSH3, FOL #### [facility] [address] [place] [id number] [facility] Iron and TIBC Profileon 02-25 % Iron Saturation 15.5 % Low 20-50 [facility] Comment on above: Performed By: #### C BC, DINA, LIPID, A1C WTH eA, B12, FE and TIBC, CMP, [id number], TSH3, FOL #### [facility] [address] Total Iron Binding Capacity 497 ug/dL High 255-450 [facility] Comment on above: Performed By: #### C BC, DINA, LIPID, A1C WTH eA, B12, FE and TIBC, CMP, [id number], TSH3, FOL #### [facility] [address] [place] [id number] [place] Iron binding capacity [Mass/ volume] in Serum or PlasmaOrdered By: Roma Pritchard on 03-25-2023 Iron binding capacity [Mass/Vol] 497 ug/dL 255-450 [facility] Iron saturation [Mass Fracti on] in Serum or PlasmaOrdered By: Roma Pritchard on 03-25-2023 Iron saturation [Mass fraction] 15.5 % 20-50 [facility] Leukocytes [#/volume] correc dinora for nucleated erythrocytes in Blood by Automated counOrdered By: Roma Pritchard on 03-25-2023 WBC corrected for nucl RBC Auto (Bld) [#/Vol] 6.2 10*3/uL 3.8-11.6 [facility] Leukocytes [#/volume] in Blo od by Automated countOrdered By: Roma Pritchard on 03-25-2023 WBC (Bld) [#/Vol] 6.2 10*3/uL Normal 3.8-11.[address] [facility] Comment on above: Performed By: #### C BC, DINA, LIPID, A1C WTH eA, B12, FE and TIBC, CMP, [id number], TSH3, FOL #### [facility] [address] Lipid Panelon 03-25-2023 LDL Cholesterol,Calculate d 60 mg/dL Normal 0-100 [facility] Comment on above: Result Comment: LDL ATP III CLASSIFICATION LDL less than 100 mg/dL Optimal LDL 100-129 mg/dL Near or above optimal LDL 130-159 mg/dL Borderline high LDL 160-189 mg/dL High LDL greater than 189 mg/dL Very high Performed By: #### C BC, DINA, LIPID, A1C WTH eA, B12, FE and TIBC, CMP, [id number], TSH3, FOL ####[facility] Triglyceride w/Reflex 95 mg/dL Normal 0-149 [facility] Comment on above: Result Comment: TRIG ATP III CLASSIFICATION TRIG less than 150 mg/dL Normal TRIG 150-199 mg/dL Borderline high TRIG 200-500 mg/dL High TRIG greater than 500 mg/dL Very high Standard traceable to the Center for Disease Conrtrol and Prevention (CDC) test method. Performed By: #### C BC, DINA, LIPID, A1C WTH eA, B12, FE and TIBC, CMP, [id number], TSH3, FOL ####[facility] VLDL CHOLESTEROL 19 mg/dL Normal [facility] Comment on above: Performed By: #### C BC, DINA, LIPID, A1C WTH eA, B12, FE and TIBC, CMP, [id number], TSH3, FOL ####[facility] [id number] Lymphocytes [#/volume] in Bl ood by Automated countOrdered By: Roma Pritchard on 03-25-2023 Lymphocytes (Bld) [#/Vol] 1.6 10*3/uL Normal 1.00-4.8 [facility] Comment on above: Performed By: #### C BC, DINA, LIPID, A1C WTH eA, B12, FE and TIBC, CMP, [id number], TSH3, FOL #### [facility] [address] Lymphocytes/100 leukocytes i n Blood by Automated countOrdered By: Roma Pritchard on 03-25-2023 Lymphocytes/100 WBC (Bld) 26.5 % Normal . [facility] Comment on above: Performed By: #### C BC, DINA, LIPID, A1C WTH eA, B12, FE and TIBC, CMP, [id number], TSH3, FOL #### [facility] [address] MCH [Entitic mass] by Automa dinora countOrdered By: Roma Pritchard on 03-25-2023 MCH (RBC) [Entitic mass] 31.0 pg Normal 24.7-34.3 [facility] Comment on above: Performed By: #### C BC, DINA, LIPID, A1C WTH eA, B12, FE and TIBC, CMP, [id number], TSH3, FOL #### [facility] [address] MCHC Auto (RBC) [Mass/Vol]Or dered By: Roma Pritchard on 03-25-2023 MCHC (RBC) [Mass/Vol] 33.4 g/dL 32.0-35.0 [facility] MCV [Entitic volume] by Auto mated countOrdered By: Roma Pritchard on 03-25-2023 MCV (RBC) [Entitic vol] 93.0 fL Normal 80-100 [facility] Comment on above: Performed By: #### C BC, DINA, LIPID, A1C WTH eA, B12, FE and TIBC, CMP, [id number], TSH3, FOL #### [facility] [address] Neutrophils [#/volume] in Bl ood by Automated countOrdered By: Roma Pritchard on 03-25-2023 Neutrophils (Bld) [#/Vol] 3.9 10*3/uL Normal 1.8-7.7 [facility] Comment on above: Performed By: #### C BC, DINA, LIPID, A1C WTH eA, B12, FE and TIBC, CMP, [id number], TSH3, FOL #### [facility] [address] No Panel InformationOrdered By: Roma Pritchard on 03-25-2023 Estimated GFR (CKD-EPI) > 60.0 mL/Min [facility] Creatinine Clearance (Chem N/A [facility] Nucleated erythrocytes [Pres ence] in Blood by Automated countOrdered By: Roma Pritchard on 03-25-2023 Nucleated RBC Auto Ql (Bld) 0.1 /100{WBC} 0-0.5 [facility] Platelet mean volume [Entiti c volume] in Blood by Automated countOrdered By: Roma Pritchard on 03-25-2023 Platelet mean volume (Bld) [Entitic vol] 9.6 fL Normal 6.3-10.7 [facility] Comment on above: Performed By: #### C BC, DINA, LIPID, A1C WTH eA, B12, FE and TIBC, CMP, [id number], TSH3, FOL #### [facility] [address] Platelets [#/volume] in Bloo d by Automated countOrdered By: Roma Pritchard on 03-25-2023 Platelets (Bld) [#/Vol] 248 10*3/uL Normal 150-450 [facility] Comment on above: Performed By: #### C BC, DINA, LIPID, A1C WTH eA, B12, FE and TIBC, CMP, [id number], TSH3, FOL #### [facility] [address] Potassium [Moles/volume] in Serum or PlasmaOrdered By: Roma Pritchard on 03-25-2023 Potassium [Moles/Vol] 4.0 mmol/L Normal 3.5-5.1 [facility] Comment on above: Performed By: #### C BC, DINA, LIPID, A1C WTH eA, B12, FE and TIBC, CMP, [id number], TSH3, FOL #### [address] Protein [Mass/volume] in Ser um or PlasmaOrdered By: Roma Pritchard on 03-25-2023 Protein [Mass/Vol] 6.9 g/dL Normal 6.4-8.[address] [facility] Comment on above: Performed By: #### C BC, DINA, LIPID, A1C WTH eA, B12, FE and TIBC, CMP, [id number], TSH3, FOL #### [address] Serum globulin measurement b y calculation (mass/volume)Ordered By: Roma Pritchard on 03-25-2023 Globulin (S) [Mass/Vol] 2.6 g/dL [facility] Comment on above: Performed By: #### C BC, DINA, LIPID, A1C WTH eA, B12, FE and TIBC, CMP, [id number], TSH3, FOL #### [address] Serum or plasma albumin/glob ulin mass ratioOrdered By: Roma Pritchard on 03-25-2023 Albumin/Globulin [Mass ratio] 1.7 {ratio} [facility] Comment on above: Performed By: #### C BC, DINA, LIPID, A1C WTH eA, B12, FE and TIBC, CMP, [id number], TSH3, FOL #### [address] Serum or plasma anion gap de terminationOrdered By: Roma Pritchard on 03-25-2023 Anion gap [Moles/Vol] 9.9 mmol/L Normal 6.0-15.0 [facility] Comment on above: Performed By: #### C BC, DINA, LIPID, A1C WTH eA, B12, FE and TIBC, CMP, [id number], TSH3, FOL #### [facility] [address] Serum or plasma high density lipoprotein (HDL) cholesterol measurementOrdered By: Roma Pritchard on 03-25-2023 Cholesterol in HDL [Mass/Vol] 83 mg/dL Normal 23-92 [facility] Comment on above: HDL CHOL ATP-III CLA SSIFICATION Cardiovascular RiskHDL > or equal to 60 mg/dL LOWHDL < 40 mg/dL HIGH Result Comment: HDL CHOL ATP-III CLASSIFICATION Cardiovascular Risk HDL > or equal to 60 mg/dL LOW HDL < 40 mg/dL HIGH Performed By: #### C BC, DINA, LIPID, A1C WTH eA, B12, FE and TIBC, CMP, [id number], TSH3, FOL ####[address] Serum or plasma total choles terol/high density lipoprotein (HDL) cholesterol mass ratOrdered By: Roma Pritchard on 03-25-2023 Cholesterol.total/Cho lesterol in HDL [Mass ratio] 2.0 {ratio} Normal <5.0 [facility] Comment on above: Performed By: #### C BC, DINA, LIPID, A1C WTH eA, B12, FE and TIBC, CMP, [id number], TSH3, FOL ####[address] Sodium [Moles/volume] in Ser um or PlasmaOrdered By: Roma Pritchard on 03-25-2023 Sodium [Moles/Vol] 142 mmol/L Normal 136-[address] [facility] Comment on above: Performed By: #### C BC, DINA, LIPID, A1C WTH eA, B12, FE and TIBC, CMP, [id number], TSH3, FOL #### [address] Thyrotropin [Units/volume] i n Serum or PlasmaOrdered By: Roma Pritchard on 03-25-2023 TSH Qn 1.73 m[IU]/L Normal 0.45-5.33 [facility] Comment on above: Performed By: #### C BC, DINA, LIPID, A1C WTH eA, B12, FE and TIBC, CMP, [id number], TSH3, FOL ####[facility] [id number] Transferrin [Mass/volume] in Serum or PlasmaOrdered By: Roma Pritchard on 03-25-2023 Transferrin [Mass/Vol] 355 mg/dL Normal 203-362 [facility] Comment on above: Performed By: #### C BC, DINA, LIPID, A1C WTH eA, B12, FE and TIBC, CMP, [id number], TSH3, FOL #### [facility] [address] Triglyceride [Mass/volume] i n Serum or PlasmaOrdered By: Roma Pritchard on 03-25-2023 Triglyceride [Mass/Vol] 95 mg/dL 0-149 [facility] Comment on above: TRIG ATP III CLASSIF ICATIONTRIG less than 150 mg/dL NormalTRIG 150-199 mg/dL Borderline highTRIG 200-500 mg/dL High TRIG greater than 500 mg/dL Very highStandard traceable to the Center for Disease Conrtrol and Prevention (CDC) test method. Urea nitrogen [Mass/volume] in Serum or PlasmaOrdered By: Roma Pritchard on 03-25-2023 Urea nitrogen [Mass/Vol] 18 mg/dL Normal 7-25 [facility] Comment on above: Performed By: #### C BC, DINA, LIPID, A1C WTH eA, B12, FE and TIBC, CMP, [id number], TSH3, FOL #### [facility] [address] Vitamin B12 ser/plasOrdered By: Roma Pritchard on 03-25-2023 Cobalamin (Vitamin B12) [Mass/Vol] 595 pg/mL Normal 180-914 [facility] Comment on above: Performed By: #### C BC, DINA, LIPID, A1C WTH eA, B12, FE and TIBC, CMP, [id number], TSH3, FOL ####[facility] [place] [address] [facility] Vitamin D 25 Hydroxy Totalon 03-25-2023 Vitamin D 25 Hydroxy Total 30.6 ng/mL Normal 30-100 [facility] Comment on above: Result Comment: AMBIKA MIN D STATUS 25([place])VITAMIN D RANGE (ng/mL) Deficient <20 Insufficient 20 to <30 Sufficient 30 to 100 Reference: Salo Loera Bischoff-Ferrari HA, et al. Evaluation,treatment, and prevention of vitamin D deficiency; an Endocrine Society clinical practice guideline. JCEM. 2010; 96(7):1911-. PERFORMED BY: [place] [id number] PATHOLOGIST MARINE FIRER CIRA GRAHAM M.D. Performed By: #### C BC, DINA, LIPID, A1C WTH eA, B12, FE and TIBC, CMP, [id number], TSH3, FOL ####[address] [address] [facility] Vitamin D+Metabolites [Mass/ volume] in Serum or PlasmaOrdered By: Roma Pritchard on 03-25-2023 Vitamin D+Metabolites [Mass/Vol] 30.6 ng/mL 30-100 [facility] Comment on above: VITAMIN D STATUS 25( [place])VITAMIN D RANGE (ng/mL) Deficient <20 Insufficient 20 to <30Sufficient 30 to 100Reference: Salo Loera, Iqra PAGE, et al. Evaluation,treatment, and prevention of vitamin D deficiency; an Endocrine Society clinical practice guideline. JCEM. 2010; 96(7):1911-30. XR shoulder RT min 2V*on XR shoulder RT min 2V* [facility] [address] [place] [address] [place] [address] XRay Report Signed Patient: Teagan Gonsales MR#: [id number] : 1955 Acct:[id number] Age/Sex: 67 / F ADM Date: 03/03/23 Loc: [facility] Room: Type: [facility] Attending Dr: Colby Shaffer DO Copies to: Colby Shfafer DO Ordering Provider: Colby Shaffer DO Date [...] Yadira Augustin M.D.03/03/2023 12:33 PM Dictation Location: [place] [address] Transcribed By: [facility] 03/03/23 1233 Dictated By: Yadira Augustin MD 03/03/23 1231 Signed By: 03/03/23 1233 Normal [facility] MM screening mammo BI w/CADo n 01-19-2023 MM screening mammo BI w/CAD [facility] [address] [place] [address] [place] [address] Mammography Report Signed Patient: Teagan Gonsales MR#: [id number] : 1955 Acct:[id number] Age/Sex: 67 / F ADM Date: 01/19/23 Loc: [place] Room: Type: [facility] Attending Dr: Referral Self Copies to: [...] mammogram. Impression dictated by: Martin Ruano Jr., D.ONkechi01/19/2023 9:37 AM Dictation Location: [facility] Transcribed By: PWS 01/19/23936 Dictated By: Martin Ruano Jr, DO 01/19/23935 Signed By: 01/19/23936 Normal [facility] RAD - MISCon 01-14-2023 RAD - MISC [id number] Normal [facility] Screenson 01-07-2023 Screens [id number] Normal [facility] Ambulatory Visit Summaryon 1 03-08-2022 Ambulatory Visit Summary TEAGAN GONSALES :1955 Visit Date:01/06/2023 Ambulatory Visit Instructions Your Diagnosis Kidney stones Tests Performed Urnls Dip Stick Auto w/o Microscopy POC [id number] XR Abdomen 1 View -- Results Pending [...] MARIANA DUONG PA-C Where: [facility] Patient Educationon 01-07-20 Patient Education Nephrology Dietary [...] ? 8 oz (237 mL) of milk, tqrysoa-ecdkjmzjqstg-zcuxk milk, and calcium-fortifiedfruit juice. Calcium-fortified means that [...] Spinach (cooked), rhubarb, beets, sweet potatoes, and Burkinan chard. ? Peanuts. ? Potato chips, yakut fries, and baked potatoes with skin on. ? Nuts and nut products. ? Chocolate. ? If you regularly take a diuretic medicine, make sure to eat at least 1 or 2 servings of fruits or vegetables that are high in potassium each day. These include: ? Avocado. ? Banana. ? Hendricks, prune, carrot, or tomato juice. ? Baked [...] fish oil, or vitamin B6. ? Take sxfk-vvk-hlghqlh and prescription medicines only as told by your health care provider. These include supplements. What foods should I limit? Limit your in (more content not included)... Normal [facility] Office/Clinic Noteon 01-06-2023 Urology Office/Clinic Note Chief Complaint 1 year with KUB HPI Staff Previous DLS pt 1yr KUB done 01/02/23 DX: Kidney Stone Pt. states she is not longer taking Oxybutynin therapy from [facility], Pt. also states she does have the [...] pt BBS 12. Oxybutynin therapy managed by [facility], has not been taking it but has [...] w/ [facility] Follow-up With When Contact Information RITCHIE JONES, MARIANA Johnson, URL [address] [place] [address] Additional Instructions: 1 year w/ [facility] Patient [...] virus vaccine, inactivated 12/23/2022 Recorded SARS-CoV-2 (COVID-19) [id number] 11/23/2021 Recorded influenza virus vaccine, inactivated 11/20/2021 [...] Recorded z (more content not included)... Normal [facility] Comment on above: Result Comment: Elec tronically Signed By: MARIANA DUONG PA-C\.br\Date and Time Signed: 01/06/23 08:56 EST\.br\Electronically Co-Signed By: Breana Jeffries\.br\Date and Time Co-Signed: 01/06/23 08:51 EST\.br\Electronically Co-Signed By: Breana Jeffries\.br\Date and Time Co-Signed: 01/06/23 08:52 EST Automated basophil %Ordered By: Roma Pritchard on 12-26-2022 Basophils/100 WBC (Bld) 0.6 % Normal . [facility] Comment on above: Performed By: #### U RDS #### [address] Automated basophil countOrde red By: Roma Pritchard on 12-26-2022 Basophils (Bld) [#/Vol] 0.0 10*3/uL Normal 0.0-0.2 [facility] Comment on above: Result Comment: PERF ORMED BY: [place] [address] PATHOLOGIST MARINE FIRER CIRA GRAHAM M.D. Performed By: #### U RDS #### [address] Automated blood monocyte cou ntOrdered By: Roma Pritchard on 12-26-2022 Monocytes (Bld) [#/Vol] 0.5 10*3/uL Normal 0.0-0.8 [facility] Comment on above: Performed By: #### U RDS #### [address] Automated eosinophil %Ordere d By: Roma Pritchard on 12-26-2022 Eosinophils/100 WBC (Bld) 4.1 % Normal . [facility] Comment on above: Performed By: #### U RDS #### [address] Automated eosinophil countOr dered By: Roma Pritchard on 12-26-2022 Eosinophils (Bld) [#/Vol] 0.3 10*3/uL Normal 0.0-0.45 [facility] Comment on above: Performed By: #### U RDS #### [address] Automated monocyte %Ordered By: Roma Pritchard on 12-26-2022 Monocytes/100 WBC (Bld) 8.0 % Normal . [facility] Comment on above: Performed By: #### U RDS #### [address] Automated neutrophil %Ordere d By: Roma Pritchard on 12-26-2022 Neutrophils/100 WBC (Bld) 60.2 % Normal . [facility] Comment on above: Performed By: #### U RDS #### [address] Complete Blood Count Auto Di ffon 12-26-2022 Mean Corpuscular HGB Conc 32.8 g/dL Normal 32.0-35.0 [facility] Comment on above: Performed By: #### U RDS #### [address] NRBC% 0.0 /100{WBC} Normal 0-0.5 [facility] Comment on above: Performed By: #### U RDS #### [address] Erythrocyte distribution wid th [Ratio] by Automated countOrdered By: Roma Pritchard on 12-26-2022 Erythrocyte distribution width (RBC) [Ratio] 14.4 % Normal 11.9-15.3 [facility] Comment on above: Performed By: #### U RDS #### [place] [address] [place] Erythrocytes [#/volume] in B lood by Automated countOrdered By: Roma Pritchard on 12-26-2022 RBC (Bld) [#/Vol] 4.11 10*6/uL Normal 3.60-5.00 [facility] Comment on above: Performed By: #### U RDS #### [facility] [address] Ferritin [Mass/volume] in Se rum or PlasmaOrdered By: Roma Pritchard on 12-26-2022 Ferritin [Mass/Vol] 31.9 ng/mL Normal 11.0-306.8 [facility] Comment on above: Performed By: #### C BC, DINA, B12, FE and TIBC, FOL, [id number] ####[place] [id number] [address] Folateon 12-26-2022 Folate 10.7 ng/mL Normal >5.9 [facility] Comment on above: Result Comment: Ирина te reference range: >5.9 ng/ml The WHO technical consultation on folate and vitamin b12 deficiencies has determined that folate concentrations less than 4 ng/ml are considered deficient. Performed By: #### C BC, DINA, B12, FE and TIBC, FOL, [id number] ####[place] [id number] [address] Folate [Mass/volume] in Seru m or PlasmaOrdered By: Roma Pritchard on 12-26-2022 Folate [Mass/Vol] 10.7 ng/mL >5.9 [facility] Comment on above: Folate reference ran ge: >5.9 ng/mlThe WHO technical consultation on folate and vitamin [id number] has determined that folate concentrations lessthan 4 ng/ml are considered deficient. Hematocrit [Volume Fraction] of Blood by Automated countOrdered By: Roma Pritchard on 12-26-2022 Hematocrit (Bld) [Volume fraction] 37.7 % Normal 34.0-46.4 [facility] Comment on above: Performed By: #### U RDS #### [address] Hemoglobin [Mass/volume] in BloodOrdered By: Roma Pritchard on 12-26-2022 Hemoglobin (Bld) [Mass/Vol] 12.4 g/dL Normal 11.8-15.4 [facility] Comment on above: Performed By: #### U RDS #### [facility] [address] Iron [Mass/volume] in Serum or PlasmaOrdered By: Roma Pritchard on 12-26-2022 Iron [Mass/Vol] 51 ug/dL Normal 50-212 [facility] Comment on above: Performed By: #### U RDS #### [facility] [address] [place] [id number] [place] Iron and TIBC Profileon 11-0 % Iron Saturation 11.6 % Low 20-50 [facility] Comment on above: Performed By: #### U RDS #### [facility] [address] [place] [address] [facility] Total Iron Binding Capacity 440 ug/dL Normal 255-450 [facility] Comment on above: Performed By: #### U RDS #### [facility] [address] [place] [address] [facility] Iron binding capacity [Mass/ volume] in Serum or PlasmaOrdered By: Roma Pritchard on 12-26-2022 Iron binding capacity [Mass/Vol] 440 ug/dL 255-450 [facility] Iron saturation [Mass Fracti on] in Serum or PlasmaOrdered By: Roma Pritchard on 12-26-2022 Iron saturation [Mass fraction] 11.6 % 20-50 [facility] Leukocytes [#/volume] correc dinora for nucleated erythrocytes in Blood by Automated counOrdered By: Roma Pritchard on 12-26-2022 WBC corrected for nucl RBC Auto (Bld) [#/Vol] 6.4 10*3/uL 3.8-11.6 [facility] Leukocytes [#/volume] in Blo od by Automated countOrdered By: Roma Pritchard on 12-26-2022 WBC (Bld) [#/Vol] 6.4 10*3/uL Normal 3.8-11.[address] [facility] Comment on above: Performed By: #### U RDS #### [address] Lymphocytes [#/volume] in Bl ood by Automated countOrdered By: Roma Pritchard on 12-26-2022 Lymphocytes (Bld) [#/Vol] 1.7 10*3/uL Normal 1.00-4.8 [facility] Comment on above: Performed By: #### U RDS #### [address] Lymphocytes/100 leukocytes i n Blood by Automated countOrdered By: Roma Pritchard on 12-26-2022 Lymphocytes/100 WBC (Bld) 27.1 % Normal . [facility] Comment on above: Performed By: #### U RDS #### [address] MCH [Entitic mass] by Automa dinora countOrdered By: Roma Pritchard on 12-26-2022 MCH (RBC) [Entitic mass] 30.1 pg Normal 24.7-34.3 [facility] Comment on above: Performed By: #### U RDS #### [address] MCHC Auto (RBC) [Mass/Vol]Or dered By: Roma Pritchard on 12-26-2022 MCHC (RBC) [Mass/Vol] 32.8 g/dL 32.0-35.0 [facility] MCV [Entitic volume] by Auto mated countOrdered By: Roma Pritchard on 12-26-2022 MCV (RBC) [Entitic vol] 91.7 fL Normal 80-100 [facility] Comment on above: Performed By: #### U RDS #### [address] Neutrophils [#/volume] in Bl ood by Automated countOrdered By: Roma Pritchard on 12-26-2022 Neutrophils (Bld) [#/Vol] 3.8 10*3/uL Normal 1.8-7.7 [facility] Comment on above: Performed By: #### U RDS #### [address] Nucleated erythrocytes [Pres ence] in Blood by Automated countOrdered By: Roma Pritchard on 12-26-2022 Nucleated RBC Auto Ql (Bld) 0.0 /100{WBC} 0-0.5 [facility] Platelet mean volume [Entiti c volume] in Blood by Automated countOrdered By: Roma Pritchard on 12-26-2022 Platelet mean volume (Bld) [Entitic vol] 9.8 fL Normal 6.3-10.7 [facility] Comment on above: Performed By: #### U RDS #### [facility] [facility] [address] Platelets [#/volume] in Bloo d by Automated countOrdered By: Roma Pritchard on 12-26-2022 Platelets (Bld) [#/Vol] 255 10*3/uL Normal 150-450 [facility] Comment on above: Performed By: #### U RDS #### [facility] [address] Transferrin [Mass/volume] in Serum or PlasmaOrdered By: Roma Pritchard on 12-26-2022 Transferrin [Mass/Vol] 314 mg/dL Normal 203-362 [facility] Comment on above: Performed By: #### U RDS #### [facility] [address] [place] [address] Vitamin B12 ser/plasOrdered By: Roma Pritchard on 12-26-2022 Cobalamin (Vitamin B12) [Mass/Vol] 351 pg/mL Normal 180-914 [facility] Comment on above: Performed By: #### C BC, DINA, B12, FE and TIBC, FOL, [id number] ####[facility] Bjb[address]43 [address] Vitamin D 25 Hydroxy Totalon 12-26-2022 Vitamin D 25 Hydroxy Total 38.1 ng/mL Normal 30-100 [facility] Comment on above: Result Comment: AMBIKA MIN D STATUS 25(OH)VITAMIN D RANGE (ng/mL) Deficient <20 Insufficient 20 to <30 Sufficient 30 to 100 Reference: Bro MF,Salo NC, Iqra PAGE, et al. Evaluation,treatment, and prevention of vitamin D deficiency; an Endocrine Society clinical practice guideline. JCEM. 2010; 96(7):1911-30. PERFORMED BY: [place] [address] PATHOLOGIST MARINE FIRER CIRA GRAHAM M.D. Performed By: #### C BC, DINA, B12, FE and TIBC, FOL, [id number] ####[facility] Lsy[address]323 [address] Vitamin D+Metabolites [Mass/ volume] in Serum or PlasmaOrdered By: Roma Pritchard on 12-26-2022 Vitamin D+Metabolites [Mass/Vol] 38.1 ng/mL 30-100 [facility] Comment on above: VITAMIN D STATUS 25( OH)VITAMIN D RANGE (ng/mL) Deficient <20 Insufficient 20 to <30Sufficient 30 to 100Reference: Bro MF,Salo NC, Iqra PAGE, et al. Evaluation,treatment, and prevention of vitamin D deficiency; an Endocrine Society clinical practice guideline. JCEM. 2010; 96(7):1911-30. XR hip RT min 2V(w/wo pelvis )*on 12-17-2022 XR hip RT min 2V(w/wo pelvis)* [facility] Main [place] [address] [place] [address] XRay Report Signed Patient: Teagan Gonsales MR#: [id number] : 1955 Acct:[id number] Age/Sex: 67 / F ADM Date: 12/17/22 Loc: [facility] Room: Type: [facility] Attending Dr: Ar Herman II, MD [...] COMPLICATION.. Impression dictated by: Martin Ruano Jr., DNkechiONkechi12/17/2022 4:12 PM Dictation Location: [facility]12 Transcribed By: [facility] 12/17/221611 Dictated By: Martin Ruano Jr, DO 12/17/221610 Signed By: 12/17/221611 Normal [facility] XR hip RT min 2V(w/wo pelvis)* [facility] [employer] Other XR hip RT min 2V(w/wo pelvis)* [facility] Main [place] [employer] Other XR hip RT min 2V(w/wo pelvis)* 1111 [facility] [employer] Other XR hip RT min 2V(w/wo pelvis)* [place] [address] [employer] Other XR hip RT min 2V(w/wo pelvis)* XRay Report [employer] Other XR hip RT min 2V(w/wo pelvis)* Signed [employer] Other XR hip RT min 2V(w/wo pelvis)* Patient: Teagan Gonsales MR#: [id number] [employer] Other XR hip RT min 2V(w/wo pelvis)* [id number] [employer] Other XR hip RT min 2V(w/wo pelvis)* : 1955 Acct:[id number] [employer] Other XR hip RT min 2V(w/wo pelvis)* Age/Sex: 67 / F ADM Date: 12/17/22 [employer] Other XR hip RT min 2V(w/wo pelvis)* [facility]: [facility] [employer] Other XR hip RT min 2V(w/wo pelvis)* Attending Dr: Ar Herman II, MD [employer] Other XR hip RT min 2V(w/wo pelvis)* Copies to: Ar Herman MD [employer] Other XR hip RT min 2V(w/wo pelvis)* Ordering Provider: Ar Herman MD [employer] Other XR hip RT min 2V(w/wo pelvis)* Date of Service: 12/17/22 [employer] Other XR hip RT min 2V(w/wo pelvis)* XR/XR hip RT min 2V(w/wo pelvis)*: Aftercare following joint replacement [employer] Other XR hip RT min 2V(w/wo pelvis)* surgery;Presence of ri [employer] [facility] [employer] Other XR hip RT min 2V(w/wo pelvis)* RIGHT HIP - 2 views: 1 view pelvis [employer] Other XR hip RT min 2V(w/wo pelvis)* CLINICAL HISTORY: Follow-up right ABBY [employer] Other XR hip RT min 2V(w/wo pelvis)* COMPARISON: Hip series 11/04/2022 [employer] Other XR hip RT min 2V(w/wo pelvis)* FINDINGS: No evidence of hardware complication or acute bony process. Degenerative changes seen [employer] Other XR hip RT min 2V(w/wo pelvis)* involving the visualized lower lumbar spine. Mild degenerative changes left hip. [employer] Other XR hip RT min 2V(w/wo pelvis)* XR/XR hip RT min 2V(w/wo pelvis)* [employer] Other XR hip RT min 2V(w/wo pelvis)* IMPRESSION: [employer] Other XR hip RT min 2V(w/wo pelvis)* NO EVIDENCE OF HARDWARE COMPLICATION.. [employer] Other XR hip RT min 2V(w/wo pelvis)* Impression dictated by: Martin Ruano Jr., Shirley12/17/2022 4:12 PM [employer] Other XR hip RT min 2V(w/wo pelvis)* Dictation Location: [place] [address] [employer] Other XR hip RT min 2V(w/wo pelvis)* Transcribed By: PWS 12/17/22 [facility] [employer] Other XR hip RT min 2V(w/wo pelvis)* Dictated By: Martin Ruano Jr DO 12/17/22 [facility] [employer] Other XR hip RT min 2V(w/wo pelvis)* Signed By: [employer] Other XR hip RT min 2V(w/wo pelvis)* 12/17/22 [facility] [employer] Other ABO/Rh Retypeon 11-04-2022 ABO/RH Recheck Result Positive Normal [facility] Comment on above: Result Comment: PERF ORMED BY: [facility] [address] [place] [address] PATHOLOGIST MARINE FIRER CIRA GRAHAM M.D. Amphetamine Screen Ql (U)Ord ered By: Moo Saxena on 11-04-2022 Amphetamines Ql (U) Negative Negative [facility] Barbiturates [Presence] in U rine by Screen methodOrdered By: Moo Saxena on 11-04-2022 Barbiturates Screen Ql (U) Negative Negative [facility] Benzodiazepines Screen Ql (U )Ordered By: Moo Saxena on 11-04-2022 Benzodiazepines Ql (U) Negative Negative [facility] Benzoylecgonine [Presence] i n Urine by Screen methodOrdered By: Moo Saxena on 2023 Benzoylecgonine Screen Ql (U) Negative Negative [facility] Cannabinoids [Presence] in U rine by Screen methodOrdered By: Moo Saxena on 11-04-2022 Cannabinoids Screen Ql (U) Positive Negative [facility] Comment on above: These are unconfirme d results and should not be used for legal purposes. Drug Cut-Off Concentration: AMPH 1000 ng/mL SHIVANI 200 ng/mL TRESA 200 ng/mL COCM 300 ng/mL OP 300 ng/mL PCP 25 ng/mL THC 20 ng/mL Drug Screen,Urineon 11-05-19 Amphetamine Screen,Urine Negative Normal Negative [facility] Comment on above: Performed By: #### U RDS #### [address] Barbiturate Screen,Urine Negative Normal Negative [facility] Comment on above: Performed By: #### U RDS #### [place] [address] [place] Benzodiazepines Screen,Urine Negative Normal Negative [facility] Comment on above: Performed By: #### U RDS #### [address] Cannabinoid Screen,Urine Positive High Negative [facility] Comment on above: Result Comment: Thes e are unconfirmed results and should not be used for legal purposes. Drug Cut-Off Concentration: AMPH 1000 ng/mL SHIVANI 200 ng/mL TRESA 200 ng/mL COCM 300 ng/mL OP 300 ng/mL PCP 25 ng/mL THC 20 ng/mL PERFORMED BY: [place] [address] PATHOLOGIST MARINE FIRER CIRA GRAHAM M.D. Performed By: #### U RDS #### [place] [address] [place] Cocaine Screen,Urine Negative Normal Negative [facility] Comment on above: Performed By: #### U RDS #### [place] [address] [place] Opiate Screen,Urine Negative Normal Negative [facility] Comment on above: Performed By: #### U RDS #### [address] [place] [address] [facility] Phencyclidine Screen,Urine Negative Normal Negative [facility] Comment on above: Performed By: #### U RDS #### [facility] [address] [place] [id number] [place] Rebel 11-04-2022 L ------ Specimen: [id number] Received: 11/04/22 Status: SAIRA Hank Num: [id number] Spec Type: Surgical Subm Dr: Ar Herman MD Tissues: A Femoral Head - Other than Fracture (RT HIP) Procedures: HE/2, Gross/Micro L3, Decalcification Age/ Patient Sex Location Account Attending Physician Teagan Gonsales 67/F [place] [id number] Ar Herman MD SPEC NUM: [id number] RECD: 11/04/22 STATUS: SAIRA MCKINNEY NUM: [id number] CARLOS: 11/04/[address] [facility] [address]: Ar Herman MD ENTERED: 11/04/[address] [facility] [address]: SPEC TYPE: Surgical DEPT: S [...] taken. Gross examination only. (/) CPT Codes 53066 Specimen: [id number] Received: 11/04/22 Status: SAIRA Patelamanda Num: [id number] Spec Type: Surgical Subm Dr: Ar Herman MD Tissues: A Femoral Head - Other than Fracture (RT HIP) Procedures: HE/2, Gross/Micro L3, Decalcification Patient: Teagan Gonsales [id number] (Continued) Specimen: [id number] Received: 11/04/22 (Continued) Signed (signature on file) Sharmin Mcdonald MD 11/05/22 1724 Specimen: [id number] Received: 11/04/22 Status: SAIRA Mckinney Num: [id number] Spec Type: Surgical Subm Dr: Ar Herman MD Tissues: A Femoral Head - Other than Fracture (RT HIP) Procedures: HE/2, Gross/Micro L3, Decalcification Patient: Teagan Gonsales Nayeli [id number] (Continued) Specimen: [id number] Received: 11/04/22 (Continued) Gross Photo Specimen: [id number] Received: 11/04/22 Status: SAIRA Mckinney Num: [id number] Spec Type: Surgical Subm Dr: Ar Herman MD Tissues: A Femoral Head - Other than Fracture (RT HIP) Procedures: HE/2, Gross/Micro L3, Decalcification Patient: IldaTeagan diaz [id number] (Continued) Signed (signature on file) [place] Mcdonald MD 11/05/22 1724 Normal [facility] Opiates [Presence] in Urine by Screen methodOrdered By: Moo Saxena on 11-04-2022 Opiates Screen Ql (U) Negative Negative [facility] Phencyclidine Screen Ql (U)O rdered By: Moo Saxena on 11-04-2022 Phencyclidine Ql (U) Negative Negative [facility] XR hip RT 1Von 11-04-2022 XR hip RT 1V [facility] [place] [address] XRay Report Signed Patient: Teagan Gonsales MR#: [id number] : 1955 Acct:[id number] Age/Sex: 67 / F ADM Date: 11/04/22 Loc: [place] Room: Type: [facility] Attending Dr: Ar Herman II, MD [...] Ruano Jr., D.O.11/04/2022 2:39 PM Dictation Location: [facility]--15 Transcribed By: [facility] 11/04/22 1430 Dictated By: Martin Ruano Jr, DO 11/04/22 1438 Signed By: 11/04/22 1439 Normal [facility] XR low pelvis w/RT x-table h ipon 11-04-2022 XR low pelvis w/RT x-table hip [facility] Main [place] [address] [place] [id number] XRay Report Signed Patient: Teagan Gonsales MR#: [id number] : 1955 Acct:[id number] Age/Sex: 67 / F ADM Date: 11/04/22 Loc: [place] Room: Type: [facility] Attending Dr: Ar Herman II, MD Copies to: rA Herman MD Ordering Provider: Ar Herman MD [...] Yadira Augustin M.D.11/04/2022 3:32 PM Dictation Location: [place] [address] Transcribed By: [facility] 11/04/22 1532 Dictated By: Yadira Augustin MD 11/04/22 1530 Signed By: 11/04/22 153 Normal [facility] Automated basophil %Ordered By: Ar Herman on 10-17-2022 Basophils/100 WBC (Bld) 0.5 % Normal . [facility] Comment on above: Performed By: #### C BC, BMP ####[facility] [address] [place] [address] [place]#### FRUC ####[facility] , Automated basophil countOrde red By: Ar Herman on 10-17-2022 Basophils (Bld) [#/Vol] 0.0 10*3/uL Normal 0.0-0.2 [facility] Comment on above: Result Comment: PERF ORMED BY: [facility] [address] [place] [address] PATHOLOGIST MARINE FIRER CIRA GRAHAM M.D. Performed By: #### C BC, BMP ####[place] [address] [place]#### FRUC ####[facility] , Automated blood monocyte cou ntOrdered By: Ar Herman on 10-17-2022 Monocytes (Bld) [#/Vol] 0.5 10*3/uL Normal 0.0-0.8 [facility] Comment on above: Performed By: #### C BC, BMP ####[place] [address] [place]#### FRUC ####[facility] , Automated eosinophil %Ordere d By: Ar Herman on 10-17-2022 Eosinophils/100 WBC (Bld) 1.9 % Normal . [facility] Comment on above: Performed By: #### C BC, BMP ####[place] [address] [place]#### FRUC ####[facility] , Automated eosinophil countOr dered By: Ar Herman on 10-17-2022 Eosinophils (Bld) [#/Vol] 0.1 10*3/uL Normal 0.0-0.45 [facility] Comment on above: Performed By: #### C BC, BMP ####[place] [address] [place]#### FRUC ####[facility] , Automated monocyte %Ordered By: Ar Herman on 10-17-2022 Monocytes/100 WBC (Bld) 8.4 % Normal . [facility] Comment on above: Performed By: #### C BC, BMP ####[facility] [place] [address] [place]#### FRUC ####[facility] , Automated neutrophil %Ordere d By: Ar Herman on 10-17-2022 Neutrophils/100 WBC (Bld) 63.0 % Normal . [facility] Comment on above: Performed By: #### C BC, BMP ####[place] [address] [place]#### FRUC ####[facility] , Automated urine color determ inationOrdered By: Ar Herman on 10-17-2022 Color (U) Yellow Normal Yellow [facility] Comment on above: Order Comment: Name Collection Type:: Clean-Voided Midstream Performed By: #### U A #### [address] Basic Metabolic Panelon 09-24 GFR/1.73 sq M.predicted MDRD (S/P/Bld) [Vol rate/Area] mL/min/{1.73_m2} Normal [facility] Comment on above: Performed By: #### C BC, BMP ####[address]#### FRUC ####[facility] , Bilirubin Test strip Ql (U)O rdered By: Ar Herman on 10-17-2022 Bilirubin Ql (U) Negative Negative [facility] Calcium [Mass/volume] in Ser um or PlasmaOrdered By: Ar Herman on 10-17-2022 Calcium [Mass/Vol] 10.4 mg/dL High 8.6-10.[address] [facility] Comment on above: Result Comment: PERF ORMED BY: [facility] [address] [place] [address] PATHOLOGIST MARINE FIRER CIRA GRAHAM M.D. Performed By: #### C BC, BMP ####[address] [place] [address] [place]#### FRUC ####[facility] , Carbon dioxide, total [Moles /volume] in Serum or PlasmaOrdered By: Ar Herman on 10-17-2022 CO2 [Moles/Vol] 32.1 mmol/L High 21.0-31.0 [facility] Comment on above: Performed By: #### C BC, BMP ####[place] [address] [place]#### FRUC ####[facility] , Chloride [Moles/volume] in S bran or PlasmaOrdered By: Ar Herman on 10-17-2022 Chloride [Moles/Vol] 102 mmol/L Normal 98-[address] [facility] Comment on above: Performed By: #### C BC, BMP ####[place] [address] [place]#### FRUC ####[facility] , Complete Blood Count Auto Di ffon 10-17-2022 Mean Corpuscular HGB Conc 32.9 g/dL Normal 32.0-35.0 [facility] Comment on above: Performed By: #### C BC, BMP ####[place] [address] [place]#### FRUC ####[facility] , NRBC% 0.2 /100{WBC} Normal 0-0.5 [facility] Comment on above: Performed By: #### C BC, BMP ####[place] [address] [place]#### FRUC ####[facility] , Creatinine [Mass/volume] in Serum or PlasmaOrdered By: Ar Herman on 10-17-2022 Creatinine [Mass/Vol] 0.73 mg/dL Normal 0.60-1.20 [facility] Comment on above: Performed By: #### C BC, BMP ####[address] [place] [address] [place]#### FRUC ####[facility] , ECG 12 lead ECGon 10-17-2022 ECG 12 lead ECG [facility] Main [place] [address] [place] [address] Electrocardiograph Report Signed Patient: Teagan Gonsales MR#: [id number] : 1955 Acct:[id number] Age/Sex: 67 / F ADM Date: 10/17/22 Loc: [place] Room: Type: [facility] Attending Dr: Ar Herman II, MD [...] was found Confirmed by CHRIS GROVES MD (Pending sale to [facility]) on 10/20/2022 6:33:29 PM Referred By: VIRGIL Electronically Signed By:CHRIS GROVES MD Transcribed By: [facility] Signed By Chris Groves MD 0 10/20/22 183 Normal [facility] Erythrocyte distribution wid th [Ratio] by Automated countOrdered By: Ar Herman on 10-17-2022 Erythrocyte distribution width (RBC) [Ratio] 14.9 % Normal 11.9-15.3 [facility] Comment on above: Performed By: #### C BC, BMP ####[place] [address] [address]#### FRUC ####[facility] , Erythrocytes [#/volume] in B lood by Automated countOrdered By: Ar Herman on 10-17-2022 RBC (Bld) [#/Vol] 4.42 10*6/uL Normal 3.60-5.00 [facility] Comment on above: Performed By: #### C BC, BMP ####[facility] [place] [address] [place]#### FRUC ####[facility] , Fructosamineon 10-17-2022 Fructosamine 237 umol/L Normal 0-285 [facility] Comment on above: Result Comment: Publ ished reference interval for apparently healthy subjects between age 20 and 60 is 205 - 285 umol/L and in a poorly controlled diabetic population is 228 - 563 umol/L with a mean of 396 umol/L. Performed at: [facility] [place] [address] [place], [place] [id number] Child Adolescent Psychiatrist: Tripp Tejada PhD, Phone: [phone] PERFORMED BY: [facility] [address] [facility] [place] [address] PATHOLOGIST MARINE FIRER CIRA GRAHAM M.D. Performed By: #### C BC, BMP ####[facility] [place] [address] [facility]#### FRUC ####[facility] , Fructosamine [Moles/volume] in Serum or PlasmaOrdered By: Ar Herman on 10-17-2022 Fructosamine [Moles/Vol] 237 umol/L 0-285 [facility] Comment on above: Published reference interval for apparently healthysubjects between age 20 and 60 is 205 - 285 umol/L and in apoorly controlled diabetic population is 228 - 563 umol/Lwith a mean of 396 umol/L.Performed at: [facility] [address] [id number] Director: Tripp Tejada PhD, Phone: [phone] Glucose [Mass/volume] in Ser um or PlasmaOrdered By: Ar Herman on 10-17-2022 Glucose [Mass/Vol] 81 mg/dL Normal 70-[address] [facility] Comment on above: ADA recommended refe rence rangeRandom Glucose Reference Range is dependent on time and content of last meal. Glucose of more than 200 mg/dL in a nonstressed, ambulatory subject supports the diagnosis of Diabetes Mellitus. Result Comment: [place] Glucose Reference Range is dependent on time and content of last meal. Glucose of more than 200 mg/dL in a nonstressed, ambulatory subject supports the diagnosis of Diabetes Mellitus. ADA recommended reference range Performed By: #### C BC, BMP ####[facility] [place] [address] [place]#### FRUC ####[facility] , Hematocrit [Volume Fraction] of Blood by Automated countOrdered By: Ar Herman on 10-17-2022 Hematocrit (Bld) [Volume fraction] 39.9 % Normal 34.0-46.4 [facility] Comment on above: Performed By: #### C BC, BMP ####[place] [address] [place] [address] [place]#### FRUC ####[facility] , Hemoglobin [Mass/volume] in BloodOrdered By: Ar Herman on 10-17-2022 Hemoglobin (Bld) [Mass/Vol] 13.1 g/dL Normal 11.8-15.4 [facility] Comment on above: Performed By: #### C BC, BMP ####[facility] [place] [address] [place]#### FRUC ####[facility] , Ketones Auto test strip (U) [Mass/Vol]Ordered By: Ar Herman on 10-17-2022 Ketones (U) [Mass/Vol] Negative Negative [facility] Leukocytes [#/volume] correc dinora for nucleated erythrocytes in Blood by Automated counOrdered By: Ar Herman on 10-17-2022 WBC corrected for nucl RBC Auto (Bld) [#/Vol] 6.2 10*3/uL 3.8-11.6 [facility] Leukocytes [#/volume] in Blo od by Automated countOrdered By: Ar Herman on 10-17-2022 WBC (Bld) [#/Vol] 6.2 10*3/uL Normal 3.8-11.[address] [facility] Comment on above: Performed By: #### C BC, BMP ####[place] [address] [place]#### FRUC ####[facility] , Lymphocytes [#/volume] in Bl ood by Automated countOrdered By: Ar Herman on 10-17-2022 Lymphocytes (Bld) [#/Vol] 1.6 10*3/uL Normal 1.00-4.8 [facility] Comment on above: Performed By: #### C BC, BMP ####[place] [address] [place]#### FRUC ####[facility] , Lymphocytes/100 leukocytes i n Blood by Automated countOrdered By: Ar Herman on 10-17-2022 Lymphocytes/100 WBC (Bld) 26.2 % Normal . [facility] Comment on above: Performed By: #### C BC, BMP ####[place] [address] [place]#### FRUC ####[facility] , MCH [Entitic mass] by Automa dinora countOrdered By: Ar Herman on 10-17-2022 MCH (RBC) [Entitic mass] 29.8 pg Normal 24.7-34.3 [facility] Comment on above: Performed By: #### C BC, BMP ####[place] [address] [place] [address] [place]#### FRUC ####[facility] , MCHC Auto (RBC) [Mass/Vol]Or dered By: Ar Herman on 10-17-2022 MCHC (RBC) [Mass/Vol] 32.9 g/dL 32.0-35.0 [facility] MCV [Entitic volume] by Auto mated countOrdered By: Ar Herman on 10-17-2022 MCV (RBC) [Entitic vol] 90.4 fL Normal 80-100 [facility] Comment on above: Performed By: #### C BC, BMP ####[facility] [address] [place] [address] [place]#### FRUC ####[facility] , Neutrophils [#/volume] in Bl ood by Automated countOrdered By: Ar Herman on 10-17-2022 Neutrophils (Bld) [#/Vol] 3.9 10*3/uL Normal 1.8-7.7 [facility] Comment on above: Performed By: #### C BC, BMP ####[place] [address] [place] [address] [facility]#### FRUC ####[facility] , Nitrite Test strip Ql (U)Ord ered By: Ar Herman on 10-17-2022 Nitrite Ql (U) Negative Negative [facility] No Panel InformationOrdered By: Ar Herman on 10-17-2022 Estimated GFR (CKD-EPI) > 60.0 mL/Min [facility] Creatinine Clearance (Chem N/A [facility] Nucleated erythrocytes [Pres ence] in Blood by Automated countOrdered By: Ar Herman on 10-17-2022 Nucleated RBC Auto Ql (Bld) 0.2 /100{WBC} 0-0.5 [facility] PST Type and Screenon 2022 ABO and Rh group Nom (Bld) Blood group A Rh(D) positive Normal [facility] Comment on above: Order Comment: Date of Surgery: [id number] Platelet mean volume [Entiti c volume] in Blood by Automated countOrdered By: Ar Herman on 10-17-2022 Platelet mean volume (Bld) [Entitic vol] 9.9 fL Normal 6.3-10.7 [facility] Comment on above: Performed By: #### C BC, BMP ####[facility] [place] [address] [place]#### FRUC ####[facility] , Platelets [#/volume] in Bloo d by Automated countOrdered By: Ar Herman on 10-17-2022 Platelets (Bld) [#/Vol] 245 10*3/uL Normal 150-450 [facility] Comment on above: Performed By: #### C BRENDON, BMP ####[place] [address] [address]#### FRUC ####[facility] , Potassium [Moles/volume] in Serum or PlasmaOrdered By: Ar Herman on 10-17-2022 Potassium [Moles/Vol] 4.2 mmol/L Normal 3.5-5.1 [facility] Comment on above: Performed By: #### C BRENDON, BMP ####[place] [address] [place]#### FRUC ####[facility] , Protein Auto test strip (U) [Mass/Vol]Ordered By: Ar Herman on 10-17-2022 Protein (U) [Mass/Vol] Negative Negative [facility] Serum or plasma anion gap de terminationOrdered By: Ar Herman on 10-17-2022 Anion gap [Moles/Vol] 10.1 mmol/L Normal 6.0-15.0 [facility] Comment on above: Performed By: #### C BRENDON, BMP ####[place] [address] [place]#### FRUC ####[facility] , Sodium [Moles/volume] in Ser um or PlasmaOrdered By: Ar Herman on 10-17-2022 Sodium [Moles/Vol] 140 mmol/L Normal 136-[address] [facility] Comment on above: Performed By: #### C BRENDON, BMP ####[place] [address] [place]#### FRUC ####[facility] , Specific gravity Auto test s trip (U) [Rel density]Ordered By: Ar Herman on 10-17-2022 Specific gravity (U) [Rel density] 1.018 1.001-1.03 0 [facility] Urea nitrogen [Mass/volume] in Serum or PlasmaOrdered By: Ar Herman on 10-17-2022 Urea nitrogen [Mass/Vol] 23 mg/dL Normal 09-16 [facility] Comment on above: Performed By: #### C BC, BMP ####[facility] [address]#### FRUC ####[facility] , Urinalysison 10-17-2022 Appearance (U) Clear Normal Clear [facility] Comment on above: Order Comment: Name Collection Type:: Clean-Voided Midstream Performed By: #### U A #### [address] Bilirubin,Urine Negative Normal Negative [facility] Comment on above: Order Comment: Name Collection Type:: Clean-Voided Midstream Performed By: #### U A #### [address] Glucose Ql (U) Normal Normal Normal [facility] Comment on above: Order Comment: Name Collection Type:: Clean-Voided Midstream Performed By: #### U A #### [address] Ketones Ql (U) Negative Normal Negative [facility] Comment on above: Order Comment: Name Collection Type:: Clean-Voided Midstream Performed By: #### U A #### [address] Leukocyte esterase Test strip Ql (U) Negative Normal Negative [facility] Comment on above: Order Comment: Name Collection Type:: Clean-Voided Midstream Performed By: #### U A #### [place] [address] [place] Nitrite,Urine Negative Normal Negative [facility] Comment on above: Order Comment: Name Collection Type:: Clean-Voided Midstream Performed By: #### U A #### [place] [address] [place] Occult Blood,Urine Negative Normal Negative [facility] Comment on above: Order Comment: Name Collection Type:: Clean-Voided Midstream Result Comment: PERF ORMED BY: [place] [address] PATHOLOGIST MARINE FIRER CIRA GRAHAM M.D. Performed By: #### U A #### [facility] [address] [place] [address] Protein,Urine Negative Normal Negative [facility] Comment on above: Order Comment: Name Collection Type:: Clean-Voided Midstream Performed By: #### U A #### [address] Specificy [place],Urine 1.018 Normal 1.001-1.03 0 [facility] Comment on above: Order Comment: Name Collection Type:: Clean-Voided Midstream Performed By: #### U A #### [address] Urobilinogen,Urine Normal Normal Normal [facility] Comment on above: Order Comment: Name Collection Type:: Clean-Voided Midstream Performed By: #### U A #### [address] Urine clarity by refractomet ry automatedOrdered By: Ar Herman on 10-17-2022 Clarity Refractometry automated (U) Clear Clear [facility] Urine glucose measurement by automated test strip (mass/volume)Ordered By: Ar Herman on 10-17-2022 Glucose Auto test strip (U) [Mass/Vol] Normal mg/dL Normal [facility] Urine hemoglobin detection b y automated test stripOrdered By: Ar Herman on 10-17-2022 Hemoglobin Auto test strip Ql (U) Negative Negative [facility] Urine leukocyte esterase det ection by automated test stripOrdered By: Ar Herman on 10-17-2022 Leukocyte esterase Auto test strip Ql (U) Negative Negative [facility] Urine pH measurement by auto mated test stripOrdered By: Ar Herman on 10-17-2022 pH (U) 6.5 [pH] Normal 5.0-9.0 [facility] Comment on above: Order Comment: Name Collection Type:: Clean-Voided Midstream Performed By: #### U A #### [facility] [address] Urobilinogen Auto test strip (U) [Mass/Vol]Ordered By: Ar Herman on 10-17-2022 Urobilinogen (U) [Mass/Vol] Normal mg/dL Normal [facility] Alanine aminotransferase [En zymatic activity/volume] in Serum or PlasmaOrdered By: Roma Pritchadr on 09-15-2022 ALT [Catalytic activity/Vol] 17 U/L 7-52 [facility] Albumin [Mass/volume] in Ser um or Plasma by Bromocresol green (BCG) dye binding methoOrdered By: Roma Pritchard on 09-15-2022 Albumin BCG dye [Mass/Vol] 4.4 g/dL 3.5-5.7 [facility] Alkaline phosphatase [Enzyma tic activity/volume] in Serum or PlasmaOrdered By: Roma Pritchard on 09-15-2022 ALP [Catalytic activity/Vol] 69 U/L 34-104 [facility] Aspartate aminotransferase [ Enzymatic activity/volume] in Serum or PlasmaOrdered By: Roma Pritchard on 09-15-2022 AST [Catalytic activity/Vol] 19 U/L 13-39 [facility] Basophils Auto (Bld) [#/Vol] Ordered By: Roma Pritchard on 09-15-2022 Basophils (Bld) [#/Vol] 0.0 10*3/uL 0.0-0.2 [facility] Basophils/100 WBC Auto (Bld) Ordered By: Roma Pritchard on 09-15-2022 Basophils/100 WBC (Bld) 0.6 % . [facility] Bilirubin.total [Mass/volume ] in Serum or PlasmaOrdered By: Roma Pritchard on 09-15-2022 Bilirubin [Mass/Vol] 0.8 mg/dL 0.3-1.[address] [facility] Calcium [Mass/volume] in Ser um or PlasmaOrdered By: Roma Pritchard on 09-15-2022 Calcium [Mass/Vol] 9.6 mg/dL 8.6-10.[address] [facility] Carbon dioxide, total [Moles /volume] in Serum or PlasmaOrdered By: Roma Pritchard on 09-15-2022 CO2 [Moles/Vol] 29.1 mmol/L 21.0-31.0 [facility] Chloride [Moles/volume] in S bran or PlasmaOrdered By: Roma Pritchard on 09-15-2022 Chloride [Moles/Vol] 105 mmol/L 98-[address] [facility] Cholesterol [Mass/volume] in Serum or PlasmaOrdered By: Roma Pritchard on 09-15-2022 Cholesterol [Mass/Vol] 162 mg/dL 140-200 [facility] Comment on above: Chol less than 200 m g/dl low riskChol 201-239 mg/dl borderline riskChol 240 mg/dl and greater high risk Cholesterol in LDL Calc [Mas s/Vol]Ordered By: Roma Pritchard on 09-15-2022 Cholesterol in LDL [Mass/Vol] 66 mg/dL 0-100 [facility] Comment on above: LDL ATP III CLASSIFI CATIONLDL less than 100 mg/dL OptimalLDL 100-129 mg/dL Near or above optimalLDL 130-159 mg/dL Borderline highLDL 160-189 mg/dL HighLDL greater than 189 mg/dL Very high Cholesterol in VLDL Calc [Ma ss/Vol]Ordered By: Roma Pritchard on 09-15-2022 Cholesterol in VLDL [Mass/Vol] 32 mg/dL [facility] Cotinine [Mass/volume] in Se rum or PlasmaOrdered By: Ar Herman on 09-15-2022 Cotinine [Mass/Vol] <1.0 ng/mL . [facility] Comment on above: This test was develo ped and its performance characteristicsdetermined by [employer]. It has not been cleared orapproved by the Food and Drug Administration.Cotinine levels greater than 20.0 are consistent with theuse of tobacco or tobacco cessation products.Performed at: [address] [id number] Director: Keshia Duron MD, Phone: [phone] Creatinine [Mass/volume] in Serum or PlasmaOrdered By: Roma Pritchard on 09-15-2022 Creatinine [Mass/Vol] 0.72 mg/dL 0.60-1.20 [facility] Eosinophils Auto (Bld) [#/Vo l]Ordered By: Roma Pritchard on 09-15-2022 Eosinophils (Bld) [#/Vol] 0.1 10*3/uL 0.0-0.45 [facility] Eosinophils/100 WBC Auto (Bl d)Ordered By: Roma Pritchard on 09-15-2022 Eosinophils/100 WBC (Bld) 2.1 % . [facility] Erythrocyte distribution wid th Auto (RBC) [Ratio]Ordered By: Roma Pritchard on 09-15-2022 Erythrocyte distribution width (RBC) [Ratio] 14.2 % 11.9-15.3 [facility] Folate [Mass/volume] in Seru m or PlasmaOrdered By: Roma Pritchard on 09-15-2022 Folate [Mass/Vol] 16.7 ng/mL >5.9 [facility] Comment on above: Folate reference ran ge: >5.9 ng/mlThe WHO technical consultation on folate and vitamin [id number] has determined that folate concentrations lessthan 4 ng/ml are considered deficient. Globulin Calc (S) [Mass/Vol] Ordered By: Roma Pritchard on 09-15-2022 Globulin (S) [Mass/Vol] 2.4 g/dL [facility] Glucose [Mass/volume] in Ser um or PlasmaOrdered By: Roma Pritchard on 09-15-2022 Glucose [Mass/Vol] 98 mg/dL 70-[address] [facility] Comment on above: ADA recommended [...] from glycated hemoglobin (Bld) [Mass/Vol] 123 mg/dL [facility] Hematocrit Auto (Bld) [Volum e fraction]Ordered By: Roma Pritchard on 09-15-2022 Hematocrit (Bld) [Volume fraction] 35.6 % 34.0-46.4 [facility] Hemoglobin A1c percentageOrd ered By: Roma Pritchard on 09-15-2022 HbA1c (Bld) [Mass fraction] 5.9 % 4.3-5.6 [facility] Comment on above: Increased risk for d iabetes: 5.7 - 6.4diabetes: >6.4glycemic control for adults with diabetes: <7.0 Hemoglobin [Mass/volume] in BloodOrdered By: Roma Pritchard on 09-15-2022 Hemoglobin (Bld) [Mass/Vol] 11.7 g/dL 11.8-15.4 [facility] Leukocytes [#/volume] correc dinora for nucleated erythrocytes in Blood by Automated counOrdered By: Roma Pritchard on 09-15-2022 WBC corrected for nucl RBC Auto (Bld) [#/Vol] 6.2 10*3/uL 3.8-11.6 [facility] Lymphocytes Auto (Bld) [#/Vo l]Ordered By: Roma Pritchard on 09-15-2022 Lymphocytes (Bld) [#/Vol] 1.2 10*3/uL 1.00-4.8 [facility] Lymphocytes/100 WBC Auto (Bl d)Ordered By: Roma Pritchard on 09-15-2022 Lymphocytes/100 WBC (Bld) 19.7 % . [facility] MCH Auto (RBC) [Entitic mass ]Ordered By: Roma Pritchard on 09-15-2022 MCH (RBC) [Entitic mass] 29.5 pg 24.7-34.3 [facility] MCHC Auto (RBC) [Mass/Vol]Or dered By: Roma Pritchard on 09-15-2022 MCHC (RBC) [Mass/Vol] 32.8 g/dL 32.0-35.0 [facility] MCV Auto (RBC) [Entitic vol] Ordered By: Roma Pritchard on 09-15-2022 MCV (RBC) [Entitic vol] 89.7 fL 80-100 [facility] Monocytes Auto (Bld) [#/Vol] Ordered By: Roma Pritchard on 09-15-2022 Monocytes (Bld) [#/Vol] 0.4 10*3/uL 0.0-0.8 [facility] Monocytes/100 WBC Auto (Bld) Ordered By: Roma Pritchard on 09-15-2022 Monocytes/100 WBC (Bld) 7.1 % . [facility] Neutrophils Auto (Bld) [#/Vo l]Ordered By: Roma Pritchard on 09-15-2022 Neutrophils (Bld) [#/Vol] 4.3 10*3/uL 1.8-7.7 [facility] Neutrophils/100 WBC Auto (Bl d)Ordered By: Roma Pritchard on 09-15-2022 Neutrophils/100 WBC (Bld) 70.5 % . [facility] Nicotine [Mass/volume] in Se rum or PlasmaOrdered By: Ar Herman on 09-15-2022 Nicotine [Mass/Vol] <1.0 ng/mL . [facility] Comment on above: This test was develo ped and its performance characteristicsdetermined by [employer]. It has not been cleared orapproved by the Food and Drug Administration.Nicotine levels greater than 2.0 are consistent with theuse of tobacco or tobacco cessation products. No Panel InformationOrdered By: Roma Pritchard on 09-15-2022 Estimated GFR (CKD-EPI) > 60.0 mL/Min [facility] Creatinine Clearance (Chem N/A [facility] Nucleated erythrocytes [Pres ence] in Blood by Automated countOrdered By: Roma Pritchard on 09-15-2022 Nucleated RBC Auto Ql (Bld) 0.2 /100{WBC} 0-0.5 [facility] Platelet mean volume Auto (B ld) [Entitic vol]Ordered By: Roma Pritchard on 09-15-2022 Platelet mean volume (Bld) [Entitic vol] 9.9 fL 6.3-10.7 [facility] Platelets Auto (Bld) [#/Vol] Ordered By: Roma Pritchard on 09-15-2022 Platelets (Bld) [#/Vol] 252 10*3/uL 150-450 [facility] Potassium [Moles/volume] in Serum or PlasmaOrdered By: Roma Pritchard on 09-15-2022 Potassium [Moles/Vol] 3.9 mmol/L 3.5-5.1 [facility] Protein [Mass/volume] in Ser um or PlasmaOrdered By: Roma Pritchard on 09-15-2022 Protein [Mass/Vol] 6.8 g/dL 6.4-8.[address] [facility] RBC Auto (Bld) [#/Vol]Ordere d By: Roma Pritchard on 09-15-2022 RBC (Bld) [#/Vol] 3.96 10*6/uL 3.60-5.00 [facility] Serum or plasma albumin/glob ulin mass ratioOrdered By: Roma Pritchard on 09-15-2022 Albumin/Globulin [Mass ratio] 1.8 {ratio} [facility] Serum or plasma anion gap de terminationOrdered By: Roma Pirtchard on 09-15-2022 Anion gap [Moles/Vol] 10.8 mmol/L 6.0-15.0 [facility] Serum or plasma high density lipoprotein (HDL) cholesterol measurementOrdered By: Roma Pritchard on 09-15-2022 Cholesterol in HDL [Mass/Vol] 64 mg/dL 23-92 [facility] Comment on above: HDL CHOL ATP-III CLA SSIFICATION Cardiovascular RiskHDL > or equal to 60 mg/dL LOWHDL < 40 mg/dL HIGH Serum or plasma total choles terol/high density lipoprotein (HDL) cholesterol mass ratOrdered By: Roma Pritchard on 09-15-2022 Cholesterol.total/Cho lesterol in HDL [Mass ratio] 2.5 {ratio} <5.0 [facility] Sodium [Moles/volume] in Ser um or PlasmaOrdered By: Roma Pritchard on 09-15-2022 Sodium [Moles/Vol] 141 mmol/L 136-[address] [facility] Triglyceride [Mass/volume] i n Serum or PlasmaOrdered By: Roma Pritchard on 09-15-2022 Triglyceride [Mass/Vol] 162 mg/dL 0-149 [facility] Comment on above: TRIG ATP III CLASSIF ICATIONTRIG less than 150 mg/dL NormalTRIG 150-199 mg/dL Borderline highTRIG 200-500 mg/dL High TRIG greater than 500 mg/dL Very highStandard traceable to the Center for Disease Conrtrol and Prevention (CDC) test method. Urea nitrogen [Mass/volume] in Serum or PlasmaOrdered By: Roma Pritchard on 09-15-2022 Urea nitrogen [Mass/Vol] 23 mg/dL 7-25 [facility] Vitamin B12 ser/plasOrdered By: Roma Pritchard on 09-15-2022 Cobalamin (Vitamin B12) [Mass/Vol] 409 pg/mL 180-914 [facility] Vitamin D+Metabolites [Mass/ volume] in Serum or PlasmaOrdered By: Roma Pritchard on 09-15-2022 Vitamin D+Metabolites [Mass/Vol] 28.1 ng/mL 30-100 [facility] Comment on above: VITAMIN D STATUS 25( [place])VITAMIN D RANGE (ng/mL) Deficient <20 Insufficient 20 to <30Sufficient 30 to 100Reference: Bro MF,Salo NC, Iqra PAGE, et al. Evaluation,treatment, and prevention of vitamin D deficiency; an Endocrine Society clinical practice guideline. JCEM. 2010; 96(7):1911-30. WBC Auto (Bld) [#/Vol]Ordere d By: Roma Pritchard on 09-15-2022 WBC (Bld) [#/Vol] 6.2 10*3/uL 3.8-11.[address] [facility] US THYROIDon 04-15-2022 US THYROID [...] by: PAIGE CLAYTON Date: 2022-04-15 08:09 Normal [facility] XR CSPINE MIN 4 VIEWSon 03-26 XR [...] PAIGE CLAYTON Date: 2022-04-04 12:31 Normal [facility] Albumin [Mass/volume] in Ser um or PlasmaOrdered By: Roma Pritchard on 03-28-2022 Albumin [Mass/Vol] 3.8 g/dL 3.2-5.[address] [facility] Automated erythrocytes count in urine sediment (number/area)Ordered By: Roma Pritchard on 03-28-2022 RBC Auto (Urine sed) [#/Area] 3-4 [HPF] 0-4 [facility] Automated leukocytes count i n urine sediment (number/area)Ordered By: Roma Pritchard on 03-28-2022 WBC Auto (Urine sed) [#/Area] 20-49 [HPF] 0-4 [facility] Automated urine sediment claudia cium oxalate crystal count by microscopy (number/high powOrdered By: Roma Pritchard on 03-28-2022 Calcium oxalate crystals LM.HPF (Urine sed) [#/Area] 1+ [HPF] [facility] Basophils Auto (Bld) [#/Vol] Ordered By: Roma Pritchard on 03-28-2022 Basophils (Bld) [#/Vol] 0.0 10*3/uL 0.0-0.2 [facility] Basophils/100 WBC Auto (Bld) Ordered By: Roma Pritchard on 03-28-2022 Basophils/100 WBC (Bld) 0.6 % . [facility] Bilirubin Test strip Ql (U)O rdered By: Roma Pritchard on 03-28-2022 Bilirubin Ql (U) Negative Negative [facility] CT biopsyOrdered By: Roma hidalgo on 03-28-2022 Transferrin [Mass/Vol] 333 mg/dL 180-380 [facility] Cholesterol [Mass/volume] in Serum or PlasmaOrdered By: Roma Pritchard on 03-28-2022 Cholesterol [Mass/Vol] 186 mg/dL 140-200 [facility] Comment on above: Chol less than 200 m g/dl low riskChol 201-239 mg/dl borderline riskChol 240 mg/dl and greater high risk Cholesterol in LDL Calc [Mas s/Vol]Ordered By: Roma Pritchard on 03-28-2022 Cholesterol in LDL [Mass/Vol] 84 mg/dL 0-100 [facility] Comment on above: LDL ATP III CLASSIFI CATIONLDL less than 100 mg/dL OptimalLDL 100-129 mg/dL Near or above optimalLDL 130-159 mg/dL Borderline highLDL 160-189 mg/dL HighLDL greater than 189 mg/dL Very high Cholesterol in VLDL Calc [Ma ss/Vol]Ordered By: Roma Pritchard on 03-28-2022 Cholesterol in VLDL [Mass/Vol] 26 mg/dL [facility] Color Auto (U)Ordered By: Radu Pritchard on 03-28-2022 Color (U) Yellow Yellow [facility] Creatinine and Glomerular fi ltration rate.predicted panel (S/P/Bld)Ordered By: Roma Pritchard on 03-28-2022 Creatinine [Mass/Vol] 0.77 mg/dL 0.44-1.03 [facility] Eosinophils Auto (Bld) [#/Vo l]Ordered By: Roma Pritchard on 03-28-2022 Eosinophils (Bld) [#/Vol] 0.1 10*3/uL 0.0-0.45 [facility] Eosinophils/100 WBC Auto (Bl d)Ordered By: Roma Pritchard on 03-28-2022 Eosinophils/100 WBC (Bld) 2.0 % . [facility] Erythrocyte distribution wid th Auto (RBC) [Ratio]Ordered By: Roma Pritchard on 03-28-2022 Erythrocyte distribution width (RBC) [Ratio] 14.0 % 11.9-15.3 [facility] Estimated glomerular filtrat ion rate (GFR) non- AmericanOrdered By: Roma Pritchard on 03-28-2022 GFR/1.73 sq M.predicted among non-blacks MDRD (S/P/Bld) [Vol rate/Area] > 60 mL/Min [facility] Ferritin [Mass/volume] in Se rum or PlasmaOrdered By: Roma Pritchard on 03-28-2022 Ferritin [Mass/Vol] 31.5 ng/mL 11-306.8 [facility] Folate [Mass/volume] in Seru m or PlasmaOrdered By: Roma Pritchard on 03-28-2022 Folate [Mass/Vol] 13.6 ng/mL >5.9 [facility] Comment on above: Folate reference ran ge: >5.9 ng/mlThe WHO technical consultation on folate and vitamin [id number] has determined that folate concentrations lessthan 4 ng/ml are considered deficient. Globulin Calc (S) [Mass/Vol] Ordered By: Roma Pritchard on 03-28-2022 Globulin (S) [Mass/Vol] 2.4 g/dL [facility] Hematocrit Auto (Bld) [Volum e fraction]Ordered By: Roma Pritchard on 03-28-2022 Hematocrit (Bld) [Volume fraction] 41.2 % 34.0-46.4 [facility] Hemoglobin [Mass/volume] in BloodOrdered By: Roma Pritchard on 03-28-2022 Hemoglobin (Bld) [Mass/Vol] 13.3 g/dL 11.8-15.4 [facility] Iron [Mass/volume] in Serum or PlasmaOrdered By: Roma Pritchard on 03-28-2022 Iron [Mass/Vol] 82 ug/dL 40-150 [facility] Iron binding capacity [Mass/ volume] in Serum or PlasmaOrdered By: Roma Pritchard on 03-28-2022 Iron binding capacity [Mass/Vol] 466 ug/dL 255-450 [facility] Iron saturation [Mass Fracti on] in Serum or PlasmaOrdered By: Roma Pritchard on 03-28-2022 Iron saturation [Mass fraction] 17.6 % 20-50 [facility] Ketones Auto test strip (U) [Mass/Vol]Ordered By: Roma Pritchard on 03-28-2022 Ketones (U) [Mass/Vol] Negative Negative [facility] Laboratory - Chemistry and C hemistry - challengeOrdered By: Roma Pritchard on 03-28-2022 Cobalamin (Vitamin B12) [Mass/Vol] 540 pg/mL 180-914 [facility] - UrinalysisOrder ed By: Roma Pritchard on 03-28-2022 Hyaline casts LM Ql (Urine sed) 0-8 [LPF] 0-8 [facility] Leukocytes [#/volume] correc dinora for nucleated erythrocytes in Blood by Automated counOrdered By: Roma Pritchard on 03-28-2022 WBC corrected for nucl RBC Auto (Bld) [#/Vol] 7.0 10*3/uL 3.8-11.6 [facility] Lymphocytes Auto (Bld) [#/Vo l]Ordered By: Roma Pritchard on 03-28-2022 Lymphocytes (Bld) [#/Vol] 1.8 10*3/uL 1.00-4.8 [facility] Lymphocytes/100 WBC Auto (Bl d)Ordered By: Roma Pritchard on 03-28-2022 Lymphocytes/100 WBC (Bld) 25.7 % . [facility] MCH Auto (RBC) [Entitic mass ]Ordered By: Roma Pritchard on 03-28-2022 MCH (RBC) [Entitic mass] 29.8 pg 24.7-34.3 [facility] MCHC Auto (RBC) [Mass/Vol]Or dered By: Roma Pritchard on 03-28-2022 MCHC (RBC) [Mass/Vol] 32.3 g/dL 32.0-35.0 [facility] MCV Auto (RBC) [Entitic vol] Ordered By: Roma Pritchard on 03-28-2022 MCV (RBC) [Entitic vol] 92.1 fL 80-100 [facility] Monocytes Auto (Bld) [#/Vol] Ordered By: Roma Pritchard on 03-28-2022 Monocytes (Bld) [#/Vol] 0.3 10*3/uL 0.0-0.8 [facility] Monocytes/100 WBC Auto (Bld) Ordered By: Roma Pritchard on 03-28-2022 Monocytes/100 WBC (Bld) 4.5 % . [facility] Neutrophils Auto (Bld) [#/Vo l]Ordered By: Roma Pritchard on 03-28-2022 Neutrophils (Bld) [#/Vol] 4.7 10*3/uL 1.8-7.7 [facility] Neutrophils/100 WBC Auto (Bl d)Ordered By: Roma Pritchard on 03-28-2022 Neutrophils/100 WBC (Bld) 67.2 % . [facility] Nitrite Test strip Ql (U)Ord ered By: Roma Pritchard on 03-28-2022 Nitrite Ql (U) Negative Negative [facility] No Panel InformationOrdered By: Roma Pritchard on 03-28-2022 25-Hydroxy Vitamin D Total 41.1 ng/mL 30-100 [facility] Comment on above: VITAMIN D STATUS 25( [place])VITAMIN D RANGE (ng/mL) Deficient <20 Insufficient 20 to <30Sufficient 30 to 100Reference: Bro MF,Salo DARNELL, Iqra PAGE, et al. Evaluation,treatment, and prevention of vitamin D deficiency; an Endocrine Society clinical practice guideline. JCEM. 2010; 96(7):1911-30. Estimated GFR () > 60 mL/Min [facility] Comment on above: GFR estimated refere nce range: According to KDOQI guidelines, <60 ml/min/1.73m2 is sufficient to diagnose a patient with chronic kidney disease. Pharmacy Creatinine Clearance (Chem N/A [facility] Nucleated erythrocytes [Pres ence] in Blood by Automated countOrdered By: Roma Pritchard on 03-28-2022 Nucleated RBC Auto Ql (Bld) 0.0 /100{WBC} 0-0.5 [facility] Platelet mean volume Auto (B ld) [Entitic vol]Ordered By: Roma Pritchard on 03-28-2022 Platelet mean volume (Bld) [Entitic vol] 9.6 fL 6.3-10.7 [facility] Platelets Auto (Bld) [#/Vol] Ordered By: Roma Pritchard on 03-28-2022 Platelets (Bld) [#/Vol] 213 10*3/uL 150-450 [facility] Protein Auto test strip (U) [Mass/Vol]Ordered By: Roma Pritchard on 03-28-2022 Protein (U) [Mass/Vol] Negative Negative [facility] Protein [Mass/volume] in Ser um or PlasmaOrdered By: Roma Pritchard on 03-28-2022 Protein [Mass/Vol] 6.2 g/dL 6.1-7.[address] [facility] RBC Auto (Bld) [#/Vol]Ordere d By: Roma Pritchard on 03-28-2022 RBC (Bld) [#/Vol] 4.48 10*6/uL 3.60-5.00 [facility] Serum or plasma alanine hoff otransferase measurement without P-5'-P (enzymatic activiOrdered By: Roma Pritchard on 03-28-2022 ALT No additional P-5'-P [Catalytic activity/Vol] 23 U/L 10-60 [facility] Serum or plasma albumin/glob ulin mass ratioOrdered By: Roma Pritchard on 03-28-2022 Albumin/Globulin [Mass ratio] 1.6 {ratio} [facility] Serum or plasma alkaline apollo sphatase measurement (enzymatic activity/volume)Ordered By: Roma Pritchard on 03-28-2022 ALP [Catalytic activity/Vol] 60 U/L 32-92 [facility] Serum or plasma anion gap de terminationOrdered By: Roma Pritchard on 03-28-2022 Anion gap [Moles/Vol] 9.1 mmol/L 6.0-15.0 [facility] Serum or plasma aspartate am inotransferase measurement (enzymatic activity/volume)Ordered By: Roma Pritchard on 03-28-2022 AST [Catalytic activity/Vol] 17 U/L 10-42 [facility] Serum or plasma calcium carrie urement (mass/volume)Ordered By: Roma Pritchard on 03-28-2022 Calcium [Mass/Vol] 9.4 mg/dL 8.2-10.[address] [facility] Serum or plasma chloride ritu surement (moles/volume)Ordered By: Roma Pritchard on 03-28-2022 Chloride [Moles/Vol] 104 mmol/L 95-[address] [facility] Serum or plasma glucose carrie urement (mass/volume)Ordered By: Roma Pritchard on 03-28-2022 Glucose [Mass/Vol] 89 mg/dL 70-[address] [facility] Comment on above: ADA recommended refe rence rangeRandom Glucose Reference Range is dependent on time and content of last meal. Glucose of more than 200 mg/dL in a nonstressed, ambulatory subject supports the diagnosis of Diabetes Mellitus. Serum or plasma high density lipoprotein (HDL) cholesterol measurementOrdered By: Roma Pritchard on 03-28-2022 Cholesterol in HDL [Mass/Vol] 76 mg/dL 35-85 [facility] Comment on above: HDL CHOL ATP-III CLA SSIFICATION Cardiovascular RiskHDL > or equal to 60 mg/dL LOWHDL < 40 mg/dL HIGH Serum or plasma potassium me asurement (moles/volume)Ordered By: Roma Pritchard on 03-28-2022 Potassium [Moles/Vol] 4.0 mmol/L 3.5-5.1 [facility] Serum or plasma sodium measu rement (moles/volume)Ordered By: Roma Pritchard on 03-28-2022 Sodium [Moles/Vol] 137 mmol/L 136-[address] [facility] Serum or plasma total biliru bin measurement (mass/volume)Ordered By: Roma Pritchard on 03-28-2022 Bilirubin [Mass/Vol] 0.3 mg/dL 0.3-1.[address] [facility] Serum or plasma total carbon dioxide measurement (moles/volume)Ordered By: Roma Pritchard on 03-28-2022 CO2 [Moles/Vol] 27.9 mmol/L 22.0-30.0 [facility] Serum or plasma total choles terol/high density lipoprotein (HDL) cholesterol mass ratOrdered By: Roma Pritchard on 03-28-2022 Cholesterol.total/Cho lesterol in HDL [Mass ratio] 2.4 {ratio} <5.0 [facility] Serum or plasma urea nitroge n measurement (mass/volume)Ordered By: Roma Pritchard on 03-28-2022 Urea nitrogen [Mass/Vol] 20 mg/dL 9-23 [facility] Specific gravity Auto test s trip (U) [Rel density]Ordered By: Roma Pritchard on 03-28-2022 Specific gravity (U) [Rel density] 1.019 1.001-1.03 0 [facility] Squamous epithelial cells de tection in urine sediment by light microscopyOrdered By: Roma Pritchard on 03-28-2022 Epithelial cells.squamous LM Ql (Urine sed) 3-4 [HPF] 0-2 [facility] TSH DL <= 0.005 mIU/L QnOrde red By: Roma Pritchard on 03-28-2022 TSH Qn 1.25 m[IU]/L 0.45-5.33 [facility] Triglyceride [Mass/volume] i n Serum or PlasmaOrdered By: Roma Pritchard on 03-28-2022 Triglyceride [Mass/Vol] 132 mg/dL 35-149 [facility] Comment on above: TRIG ATP III CLASSIF ICATIONTRIG less than 150 mg/dL NormalTRIG 150-199 mg/dL Borderline highTRIG 200-500 mg/dL High TRIG greater than 500 mg/dL Very highStandard traceable to the Center for Disease Conrtrol and Prevention (CDC) test method. Urine bacteria detection by automated methodOrdered By: Roma Pritchard on 03-28-2022 Bacteria Auto Ql (U) None seen None Seen [facility] Urine clarity by refractomet ry automatedOrdered By: Roma Pritchard on 03-28-2022 Clarity Refractometry automated (U) Turbid Clear [facility] Urine glucose measurement by automated test strip (mass/volume)Ordered By: oRma Pritchard on 03-28-2022 Glucose Auto test strip (U) [Mass/Vol] Normal mg/dL Normal [facility] Urine hemoglobin detection b y automated test stripOrdered By: Roma Pritchard on 03-28-2022 Hemoglobin Auto test strip Ql (U) Negative Negative [facility] Urine leukocyte esterase det ection by automated test stripOrdered By: Roma Pritchard on 03-28-2022 Leukocyte esterase Auto test strip Ql (U) 3+ Negative [facility] Urine sediment crystal ident ification by light microscopyOrdered By: Roma Pritchard on 03-28-2022 Crystals LM Nom (Urine sed) None seen [HPF] [facility] Urobilinogen Auto test strip (U) [Mass/Vol]Ordered By: Roma Pritchard on 03-28-2022 Urobilinogen (U) [Mass/Vol] Normal mg/dL Normal [facility] WBC Auto (Bld) [#/Vol]Ordere d By: Roma Pritchard on 03-28-2022 WBC (Bld) [#/Vol] 7.0 10*3/uL 3.8-11.[address] [facility] pH Auto test strip (U)Ordere d By: Roma Pritchard on 03-28-2022 pH (U) 5.5 [pH] 5.0-9.0 [facility] XR hip RT min 2V(w/wo pelvis )*on 03-05-2022 XR hip RT min 2V(w/wo pelvis)* [facility] [employer] Other XR hip RT min 2V(w/wo pelvis)* [facility] [address] [place] [employer] Other XR hip RT min 2V(w/wo pelvis)* [address] [place] [address] [employer] Other XR hip RT min 2V(w/wo pelvis)* [place] [address] [employer] Other XR hip RT min 2V(w/wo pelvis)* XRay Report [employer] Other XR hip RT min 2V(w/wo pelvis)* Signed [employer] Other XR hip RT min 2V(w/wo pelvis)* Patient: Teagan Gonsales MR#: [id number] [employer] Other XR hip RT min 2V(w/wo pelvis)* [id number] [employer] Other XR hip RT min 2V(w/wo pelvis)* : 1955 Acct:[id number] [employer] Other XR hip RT min 2V(w/wo pelvis)* Age/Sex: 66 / F ADM Date: 03/05/22 [employer] Other XR hip RT min 2V(w/wo pelvis)* Loc: [facility]XD Room: Type: REG CLI [employer] Other XR hip RT min 2V(w/wo pelvis)* Attending Dr: Ar Herman II, MD [employer] Other XR hip RT min 2V(w/wo pelvis)* Copies to: Ar Herman MD [employer] Other XR hip RT min 2V(w/wo pelvis)* Ordering Provider: Ar Herman MD [employer] Other XR hip RT min 2V(w/wo pelvis)* Date of Service: 03/05/22 [employer] Other XR hip RT min 2V(w/wo pelvis)* XR/XR hip RT min 2V(w/wo pelvis)*: Right hip pain [employer] Other XR hip RT min 2V(w/wo pelvis)* RIGHT HIP - 2 views: [employer] Other XR hip RT min 2V(w/wo pelvis)* CLINICAL HISTORY: Lateral right hip pain for years with weakness. [employer] Other XR hip RT min 2V(w/wo pelvis)* COMPARISON: Hip series 01/19/2019 [employer] Other XR hip RT min 2V(w/wo pelvis)* FINDINGS: Moderate degenerative changes of both hips without acute bony process. Additional [employer] Other XR hip RT min 2V(w/wo pelvis)* degenerative changes involving the visualized lower lumbar spine and SI joints. [employer] Other XR hip RT min 2V(w/wo pelvis)* XR/XR hip RT min 2V(w/wo pelvis)* [employer] Other XR hip RT min 2V(w/wo pelvis)* IMPRESSION: [employer] Other XR hip RT min 2V(w/wo pelvis)* MODERATE DEGENERATIVE CHANGES OF BOTH HIPS WITHOUT ACUTE BONY PROCESS.. [employer] Other XR hip RT min 2V(w/wo pelvis)* Impression dictated by: Martin Ruano Jr., D.O.03/05/2022 3:03 PM [employer] Other XR hip RT min 2V(w/wo pelvis)* Dictation Location: [facility]-- [employer] Other XR hip RT min 2V(w/wo pelvis)* Transcribed By: PWS 03/05/22 1503 [employer] Other XR hip RT min 2V(w/wo pelvis)* Dictated By: Martin Ruano Jr, DO 03/05/22 1502 [employer] Other XR hip RT min 2V(w/wo pelvis)* Signed By: [employer] Other XR hip RT min 2V(w/wo pelvis)* 03/05/22 1503 [employer] Other XR KUB 1 VIEWon 12-30-2021 XR [...] ROMA BOUDREAUX Date: 2021-12-30 17:26 Normal [facility] Urine culture routineOrdered By: Roma Pritchard on 09-25-2021 Bacteria identified Cx Nom (U) 2 Days [facility] Automated erythrocytes count in urine sediment (number/area)Ordered By: Roma Pritchard on 09-23-2021 RBC Auto (Urine sed) [#/Area] 3-4 [HPF] 0-4 [facility] Automated leukocytes count i n urine sediment (number/area)Ordered By: Roma Pritchard on 09-23-2021 WBC Auto (Urine sed) [#/Area] 10-19 [HPF] 0-4 [facility] Automated urine sediment claudia cium oxalate crystal count by microscopy (number/high powOrdered By: Roma Pritchard on 09-23-2021 Calcium oxalate crystals LM.HPF (Urine sed) [#/Area] 2+ [HPF] [facility] Basophils Auto (Bld) [#/Vol] Ordered By: Roma Pritchard on 09-23-2021 Basophils (Bld) [#/Vol] 0.0 10*3/uL 0.0-0.2 [facility] Basophils/100 WBC Auto (Bld) Ordered By: Roma Pritchard on 09-23-2021 Basophils/100 WBC (Bld) 0.6 % . [facility] Bilirubin Auto test strip Ql (U)Ordered By: Roma Pritchard on 09-23-2021 Bilirubin Ql (U) Negative Negative [facility] Blood hemoglobin measurement (mass/volume)Ordered By: Roma Pritchard on 09-23-2021 Hemoglobin (Bld) [Mass/Vol] 13.5 g/dL 11.8-15.4 [facility] Blood leukocytes automated c ount (number/volume)Ordered By: Roma Pritchard on 09-23-2021 WBC (Bld) [#/Vol] 5.9 10*3/uL 4.5-11.[address] [facility] Body fluid albumin measureme nt (mass/volume)Ordered By: Roma Pritchard on 09-23-2021 Albumin (Body fld) [Mass/Vol] 3.9 g/dL 3.2-5.5 [facility] CT biopsyOrdered By: Roma hidalgo on 09-23-2021 Transferrin [Mass/Vol] 290 mg/dL 180-380 [facility] Cholesterol [Mass/volume] in Serum or PlasmaOrdered By: Roma Pritchard on 09-23-2021 Cholesterol [Mass/Vol] 158 mg/dL 140-200 [facility] Comment on above: Chol less than 200 m g/dl low risk Chol 201-239 mg/dl borderline risk Chol 240 mg/dl and greater high risk Cholesterol in LDL Calc [Mas s/Vol]Ordered By: Roma Pritchard on 09-23-2021 Cholesterol in LDL [Mass/Vol] 64 mg/dL 0-100 [facility] Comment on above: LDL ATP III CLASSIFI CATION LDL less than 100 mg/dL Optimal LDL 100-129 mg/dL Near or above optimal LDL 130-159 mg/dL Borderline high LDL 160-189 mg/dL High LDL greater than 189 mg/dL Very high Cholesterol in VLDL Calc [Ma ss/Vol]Ordered By: Roma Pritchard on 09-23-2021 Cholesterol in VLDL [Mass/Vol] 39 mg/dL [facility] Creatinine and Glomerular fi ltration rate.predicted panel (S/P/Bld)Ordered By: Roma Pritchard on 09-23-2021 Creatinine [Mass/Vol] 0.64 mg/dL 0.44-1.03 [facility] Eosinophils Auto (Bld) [#/Vo l]Ordered By: Roma Pritchard on 09-23-2021 Eosinophils (Bld) [#/Vol] 0.2 10*3/uL 0.0-0.45 [facility] Eosinophils/100 WBC Auto (Bl d)Ordered By: Roma Pritchard on 09-23-2021 Eosinophils/100 WBC (Bld) 2.6 % . [facility] Erythrocyte distribution wid th Auto (RBC) [Ratio]Ordered By: Roma Pritchard on 09-23-2021 Erythrocyte distribution width (RBC) [Ratio] 12.7 % 11.9-15.3 [facility] Estimated glomerular filtrat ion rate (GFR) non- AmericanOrdered By: Roma Pritchard on 09-23-2021 GFR/1.73 sq M.predicted among non-blacks MDRD (S/P/Bld) [Vol rate/Area] > 60 mL/Min [facility] Ferritin [Mass/volume] in Se rum or PlasmaOrdered By: Roma Pritchard on 09-23-2021 Ferritin [Mass/Vol] 101.7 ng/mL 11-306.[address] [facility] Folate [Mass/volume] in Seru m or PlasmaOrdered By: Roma Pritchard on 09-23-2021 Folate [Mass/Vol] 17.1 ng/mL >5.9 [facility] Comment on above: Folate reference ran ge: >5.9 ng/ml The WHO technical consultation on folate and vitamin b12 deficiencies has determined that folate concentrations less than 4 ng/ml are considered deficient. Globulin Calc (S) [Mass/Vol] Ordered By: Roma Pritchard on 09-23-2021 Globulin (S) [Mass/Vol] 2.3 g/dL [facility] Glucose mean value [Mass/vol ume] in Blood Estimated from glycated hemoglobinOrdered By: Roma Pritchard on 09-23-2021 Average glucose Estimated from glycated hemoglobin (Bld) [Mass/Vol] 120 mg/dL [facility] Hematocrit Auto (Bld) [Volum e fraction]Ordered By: Roma Pritchard on 09-23-2021 Hematocrit (Bld) [Volume fraction] 40.6 % 34.0-46.4 [facility] Hemoglobin A1c percentageOrd ered By: Roma Pritchard on 09-23-2021 HbA1c (Bld) [Mass fraction] 5.8 % 4.3-5.6 [facility] Comment on above: Increased risk for d iabetes: 5.7 - 6.4 diabetes: >6.4 glycemic control for adults with diabetes: <7.0 Iron [Mass/volume] in Serum or PlasmaOrdered By: Roma Pritchard on 09-23-2021 Iron [Mass/Vol] 98 ug/dL 40-150 [facility] Iron binding capacity [Mass/ volume] in Serum or PlasmaOrdered By: Roma Pritchard on 09-23-2021 Iron binding capacity [Mass/Vol] 406 ug/dL 255-450 [facility] Iron saturation [Mass Fracti on] in Serum or PlasmaOrdered By: Roma Pritchard on 09-23-2021 Iron saturation [Mass fraction] 24.0 % 20-50 [facility] Ketones Auto test strip (U) [Mass/Vol]Ordered By: Roma Pritchard on 09-23-2021 Ketones (U) [Mass/Vol] Negative Negative [facility] Laboratory - Chemistry and C hemistry - challengeOrdered By: Roma Pritchard on 09-23-2021 Cobalamin (Vitamin B12) [Mass/Vol] 648 pg/mL 180-914 [facility] Laboratory - Hematology and Cell countsOrdered By: Roma Pritchard on 09-23-2021 Nucleated RBC/100 WBC (Bld) [Ratio] 0.1 % 0-0.5 [facility] - UrinalysisOrder ed By: Roma Pritchard on 09-23-2021 Hyaline casts LM Ql (Urine sed) 0-8 [LPF] 0-8 [facility] Lymphocytes Auto (Bld) [#/Vo l]Ordered By: Roma Pritchard on 09-23-2021 Lymphocytes (Bld) [#/Vol] 1.6 10*3/uL 1.00-4.8 [facility] Lymphocytes/100 WBC Auto (Bl d)Ordered By: Roma Pritchard on 09-23-2021 Lymphocytes/100 WBC (Bld) 27.3 % . [facility] MCH Auto (RBC) [Entitic mass ]Ordered By: Roma Pritchard on 09-23-2021 MCH (RBC) [Entitic mass] 31.0 pg 24.7-34.3 [facility] MCHC Auto (RBC) [Mass/Vol]Or dered By: Roma Pritchard on 09-23-2021 MCHC (RBC) [Mass/Vol] 33.3 g/dL 32.0-35.0 [facility] MCV Auto (RBC) [Entitic vol] Ordered By: Roma Pritchard on 09-23-2021 MCV (RBC) [Entitic vol] 93.1 fL 80-100 [facility] Monocytes Auto (Bld) [#/Vol] Ordered By: Roma Pritchard on 09-23-2021 Monocytes (Bld) [#/Vol] 0.5 10*3/uL 0.0-0.8 [facility] Monocytes/100 WBC Auto (Bld) Ordered By: Roma Pritchard on 09-23-2021 Monocytes/100 WBC (Bld) 8.6 % . [facility] Neutrophils Auto (Bld) [#/Vo l]Ordered By: Roma Pritchard on 09-23-2021 Neutrophils (Bld) [#/Vol] 3.6 10*3/uL 1.8-7.7 [facility] Neutrophils/100 WBC Auto (Bl d)Ordered By: Roma Pritchard on 09-23-2021 Neutrophils/100 WBC (Bld) 60.9 % . [facility] No Panel InformationOrdered By: Roma Pritchard on 09-23-2021 25-Hydroxy Vitamin D Total 41.0 ng/mL 30-100 [facility] Comment on above: VITAMIN D STATUS 25( [place])VITAMIN D RANGE (ng/mL) Deficient <20 Insufficient 20 to <30 Sufficient 30 to 100 Reference: Bro MF,Salo NC, Iqra PAGE, et al. Evaluation,treatment, and prevention of vitamin D deficiency; an Endocrine Society clinical practice guideline. JCEM. 2010; 96(7):1911-30. Estimated GFR () > 60 mL/Min [facility] Comment on above: GFR estimated refere nce range: According to KDOQI guidelines, <60 ml/min/1.73m2 is sufficient to diagnose a patient with chronic kidney disease. Pharmacy Creatinine Clearance (Chem N/A [facility] Platelet mean volume Auto (B ld) [Entitic vol]Ordered By: Roma Pritchard on 09-23-2021 Platelet mean volume (Bld) [Entitic vol] 10.0 fL 6.3-10.7 [facility] Platelets Auto (Bld) [#/Vol] Ordered By: Roma Pritchard on 09-23-2021 Platelets (Bld) [#/Vol] 213 10*3/uL 150-450 [facility] Protein Auto test strip (U) [Mass/Vol]Ordered By: Roma Pritchard on 09-23-2021 Protein (U) [Mass/Vol] Negative Negative [facility] Protein [Mass/volume] in Ser um or PlasmaOrdered By: Roma Pritchard on 09-23-2021 Protein [Mass/Vol] 6.2 g/dL 6.1-7.[address] [facility] RBC Auto (Bld) [#/Vol]Ordere d By: Roma Pritchard on 09-23-2021 RBC (Bld) [#/Vol] 4.36 10*6/uL 3.60-5.00 [facility] Serum or plasma alanine hoff otransferase measurement without P-5'-P (enzymatic activiOrdered By: Roma Pritchard on 09-23-2021 ALT No additional P-5'-P [Catalytic activity/Vol] 49 U/L 10-60 [facility] Serum or plasma albumin/glob ulin mass ratioOrdered By: Roma Pritchard on 09-23-2021 Albumin/Globulin [Mass ratio] 1.7 {ratio} [facility] Serum or plasma alkaline apollo sphatase measurement (enzymatic activity/volume)Ordered By: Roma Pritchard on 09-23-2021 ALP [Catalytic activity/Vol] 69 U/L 32-92 [facility] Serum or plasma aspartate am inotransferase measurement (enzymatic activity/volume)Ordered By: Roma Pritchard on 09-23-2021 AST [Catalytic activity/Vol] 29 U/L 10-42 [facility] Serum or plasma calcium carrie urement (mass/volume)Ordered By: Roma Pritchard on 09-23-2021 Calcium [Mass/Vol] 9.9 mg/dL 8.2-10.[address] [facility] Serum or plasma chloride ritu surement (moles/volume)Ordered By: Roma Pritchard on 09-23-2021 Chloride [Moles/Vol] 102 mmol/L 95-[address] [facility] Serum or plasma glucose carrie urement (mass/volume)Ordered By: Roma Pritchard on 09-23-2021 Glucose [Mass/Vol] 117 mg/dL 70-[address] [facility] Comment on above: ADA recommended refe rence range Random Glucose Reference Range is dependent on time and content of last meal. Glucose of more than 200 mg/dL in a nonstressed, ambulatory subject supports the diagnosis of Diabetes Mellitus. Serum or plasma high density lipoprotein (HDL) cholesterol measurementOrdered By: Roma Pritchard on 09-23-2021 Cholesterol in HDL [Mass/Vol] 55 mg/dL 35-85 [facility] Comment on above: HDL CHOL ATP-III CLA SSIFICATION Cardiovascular Risk HDL > or equal to 60 mg/dL LOW HDL < 40 mg/dL HIGH Serum or plasma potassium me asurement (moles/volume)Ordered By: Roma Pritchard on 09-23-2021 Potassium [Moles/Vol] 4.0 mmol/L 3.5-5.1 [facility] Serum or plasma sodium measu rement (moles/volume)Ordered By: Roma Pritchard on 09-23-2021 Sodium [Moles/Vol] 140 mmol/L 136-[address] [facility] Serum or plasma total biliru bin measurement (mass/volume)Ordered By: Roma Pritchard on 09-23-2021 Bilirubin [Mass/Vol] 0.5 mg/dL 0.3-1.[address] [facility] Serum or plasma total carbon dioxide measurement (moles/volume)Ordered By: Roma Pritchard on 09-23-2021 CO2 [Moles/Vol] 25.2 mmol/L 22.0-30.0 [facility] Serum or plasma total choles terol/high density lipoprotein (HDL) cholesterol mass ratOrdered By: Roma Pritchard on 09-23-2021 Cholesterol.total/Cho lesterol in HDL [Mass ratio] 2.9 {ratio} <5.0 [facility] Serum or plasma urea nitroge n measurement (mass/volume)Ordered By: Roma Pritchard on 09-23-2021 Urea nitrogen [Mass/Vol] 14 mg/dL 9-23 [facility] Squamous epithelial cells de tection in urine sediment by light microscopyOrdered By: Roma Pritchard on 09-23-2021 Epithelial cells.squamous LM Ql (Urine sed) 3-4 [HPF] 0-2 [facility] Triglyceride [Mass/volume] i n Serum or PlasmaOrdered By: Roma Pritchard on 09-23-2021 Triglyceride [Mass/Vol] 196 mg/dL 35-149 [facility] Comment on above: TRIG ATP III CLASSIF ICATION TRIG less than 150 mg/dL Normal TRIG 150-199 mg/dL Borderline high TRIG 200-500 mg/dL High TRIG greater than 500 mg/dL Very high Standard traceable to the Center for Disease Conrtrol and Prevention (CDC) test method. Urine appearanceOrdered By: Roma Pritchard on 09-23-2021 Appearance (U) Cloudy Clear [facility] Urine bacteria detection by automated methodOrdered By: Roma Pritchard on 09-23-2021 Bacteria Auto Ql (U) 1+ None Seen [facility] Urine colorOrdered By: Roma Pritchard on 09-23-2021 Color (U) Yellow Yellow [facility] Urine glucose measurement by automated test strip (mass/volume)Ordered By: Roma Pritchard on 09-23-2021 Glucose Auto test strip (U) [Mass/Vol] Normal mg/dL Normal [facility] Urine hemoglobin detection b y automated test stripOrdered By: Roma Pritchard on 09-23-2021 Hemoglobin Auto test strip Ql (U) 1+ Negative [facility] Urine leukocyte esterase det ection by automated test stripOrdered By: Roma Pritchard on 09-23-2021 Leukocyte esterase Auto test strip Ql (U) 2+ Negative [facility] Urine nitrite detection by a utomated test stripOrdered By: Roma Pritchard on 09-23-2021 Nitrite Auto test strip Ql (U) Negative Negative [facility] Urine sediment crystal ident ification by light microscopyOrdered By: Roma Pritchard on 09-23-2021 Crystals LM Nom (Urine sed) None seen [HPF] [facility] Urobilinogen Auto test strip (U) [Mass/Vol]Ordered By: Roma Pritchard on 09-23-2021 Urobilinogen (U) [Mass/Vol] Normal mg/dL Normal [facility] pH Auto test strip (U)Ordere d By: Roma Pritchard on 09-23-2021 pH (U) 1.030 [pH] 1.001-1.03 0 [facility] pH (U) 5.5 [pH] 5.0-9.0 [facility] XR abdomen min 2Von 01-08-20 21 XR abdomen min 2V [facility] [employer] Other XR abdomen min 2V [facility] [employer] [facility] [employer] Other XR abdomen min 2V [address] [place] [address] [employer] Other XR abdomen [place] 2[place] [address] [employer] Other XR abdomen min 2V XRay Report [employer] Other XR abdomen min 2V Signed [employer] Other XR abdomen min 2V Patient: William Gonsales MR#: [id number] [employer] Other XR abdomen min 2V [id number] [employer] Other XR abdomen min 2V : 1955 Acct:[id number] [employer] Other XR abdomen min 2V Age/Sex: 65 / F ADM Date: 01/07/21 [employer] Other XR abdomen min 2V Loc: XD Room: Type: [facility] [employer] Other XR abdomen min 2V Attending Dr: Roma Pritchard DO [employer] Other XR abdomen min 2V Ordering Provider: Carl Pritchard, [employer] Other XR abdomen min 2V Date of Service: 01/07/21 [employer] Other XR abdomen min 2V [id number]) XR/XR abdomen min 2V: K59.00 [employer] Other XR abdomen min 2V Copies to: Roma Pritchard, [employer] Other XR abdomen min 2V 2 views of abdomen [employer] Other XR abdomen min 2V COMPARISON: 12/27/20 [employer] Other XR abdomen min 2V HISTORY: Increased stool. [employer] Other XR abdomen min 2V Nondistended air-cailin led small bowel loops identified. [employer] Other XR abdomen min 2V Reduction of stool identified. [employer] Other XR abdomen min 2V No abdominal calcifi cation identified. [employer] Other XR abdomen min 2V No soft tissue mass seen. [employer] Other XR abdomen min 2V Advanced lower lumba r spondylosis present. To moderate bilateral hip degeneration. [employer] Other XR abdomen min 2V X R/XR abdomen min 2V [employer] Other XR abdomen min 2V IMPRESSION: No visib le nephrolithiasis. Reduction of stool. [employer] Other XR abdomen min 2V Impression dictated by: Jeevan Johnson M.D.01/07/2021 3:34 PM [employer] Other XR abdomen min 2V Dictation Location: RADIO-PC-11 [employer] Other XR abdomen min 2V Transcribed By: PWS 01/07/21 [facility]4 [employer] Other XR abdomen min 2V Dictated By: Valdez Johnson DO 01/07/21 [facility] [employer] Other XR abdomen min 2V Signed By: [facility] [employer] Other XR abdomen min 2V 01/07/21 [address] [place] Other Urinalysison 12-18-2020 Appearance (U) Clear Clear [employer] Other Color (U) Yellow Yellow [employer] Other Glucose Ql (U) Normal Normal [employer] Other Ketones Ql (U) Negative Negative [employer] Other Leukocyte esterase Test strip Ql (U) Negative Negative [employer] Other pH (U) 5.5 [pH] 5.0-9.0 [employer] Other Urinalysis 1.007 1.001-1.03 0 [employer] Other Urinalysis Normal Normal [employer] Other Urine 10 SGon 12-18-2020 Albumin DL <= 20 mg/L (U) [Mass/Vol] Negative [employer] Other pH (U) 5.0 [pH] [employer] Other Urine 10 SG Negative Negative [employer] Other Urine 10 SG 1.010 [employer] Other Urine 10 SG 0.2 [employer] Other Dermatopathologyon 03-09-202 1 Dermatopathology [facility] Dermatopathology Laboratory [address] [place] [id number] DERMATOPATHOLOGY REPORT Name:TEAGAN GONSALES Rec #. [id number] Location: [facility] Date of Procedure: 05/01/2020 Race: PT DECLINED Date Received: 05/03/2020 /Sex: 1955 (Age: 64) / F Date Reported: 05/04/2020 Other: Submitting Physician:LULA ZAMORANO APRN, [employer] WEIGHER-C FINAL DIAGNOSIS SKIN, R HINDUISM, BIOPSY: INTERFACE DERMATITIS WITH BASAL LAYER KERATINOCYTE [...] M.D. Electronically Signed Out By INO FIGUEROA MD/[facility] By the signature on this report, the individual or group listed as making the Final Interpretation/Diagnosis certifies that they have reviewed this case. Clinical History: 2.1 x 1.9 cm. ISK vs Lupus vs other. Biopsy. Specimens Submitted As: A: SKIN, R HINDUISM Gross Description: Received in formalin is a salas piece of skin measuring 8a8p3hm. The specimen is inked and embedded in toto. dcp/05/03/2020 [facility] Comment on above: Performed By: #### D #### Dermatopathology [facility] 08-02-2018 [facility] Letter Text Normal [facility] Vital Signs Date Time Vital Sign Value Performing Clinician Facility 12-17-2023 10:08-0400 Body height 154.9 cm Juan Yatse DPM Work Phone: [facility] 12-17-2023 10:08-0400 Body mass index (BMI) [Ratio] 27.21 kg/m2 Juan Yates DPM Work Phone: [facility] 12-17-2023 10:08-0400 Body weight 65.32 kg Juan Yates DPM Work Phone: [facility] 12-17-2023 10:08-0400 Diastolic blood pressure 79 mm[Hg] Juandennis Yates DPM Work Phone: [facility] 12-17-2023 10:08-0400 Heart rate 82 /min Juandennis Yates DPM Work Phone: [facility] 12-17-2023 10:08-0400 Systolic blood pressure 124 mm[Hg] Juan Milan DPM Work Phone: [facility] 11-16-2023 09:23-0400 Body height 157.48 cm DO Roma Ritchiecarmen Work Phone: [facility] 11-16-2023 09:23-0400 Body mass index (BMI) [Ratio] 27.2 kg/m2 DO Roma Ritchiecarmen Work Phone: [facility] 11-16-2023 09:23-0400 Body temperature 97.3 [degF] DO Roma Ritchiecarmne Work Phone: [facility] 11-16-2023 09:23-0400 Body weight 67.58 kg DO Roma Ritchiecarmen Work Phone: [facility] 11-16-2023 09:23-0400 Diastolic blood pressure 82 mm[Hg] DO Roma Ritchiecarmen Work Phone: [facility] 11-16-2023 09:23-0400 Heart rate 75 /min DO Roma Pritchard Work Phone: [facility] 11-16-2023 09:23-0400 Respiratory rate 16 /min DO Roma Pritchard Work Phone: [facility] 11-16-2023 09:23-0400 SaO2% (BldA) [Mass fraction] 96 % DO Roma Pritchard Work Phone: [facility] 11-16-2023 09:23-0400 Systolic blood pressure 138 mm[Hg] DO Roma Pritchard Work Phone: [facility] 10-06-2023 08:57-0400 Body height 157.48 cm DO Roma Pritchard Work Phone: [facility] 10-06-2023 08:57-0400 Body mass index (BMI) [Ratio] 27.4 kg/m2 DO Roma Pritchard Work Phone: [facility] 10-06-2023 08:57-0400 Body temperature 97.3 [degF] DO Roma Pritchard Work Phone: [facility] 10-06-2023 08:57-0400 Body weight 68.03 kg DO Roma Pritchard Work Phone: [facility] 10-06-2023 08:57-0400 Diastolic blood pressure 82 mm[Hg] DO Roma Pritchard Work Phone: [facility] 10-06-2023 08:57-0400 Heart rate 72 /min DO Roma Pritchard Work Phone: [facility] 10-06-2023 08:57-0400 Respiratory rate 16 /min DO Roma Pritchard Work Phone: [facility] 10-06-2023 08:57-0400 SaO2% (BldA) [Mass fraction] 95 % DO Roma Pritchard Work Phone: [facility] 10-06-2023 08:57-0400 Systolic blood pressure 128 mm[Hg] DO Roma Pritchard Work Phone: [facility] 07-07-2023 09:23-0400 Body height 157.48 cm DO Roma Pritchard Work Phone: [facility] 07-07-2023 09:23-0400 Body mass index (BMI) [Ratio] 27.8 kg/m2 DO Roma Pritchard Work Phone: [facility] 07-07-2023 09:23-0400 Body temperature 97 [degF] DO Roma Pritchard Work Phone: [facility] 07-07-2023 09:23-0400 Body weight 68.94 kg DO Roma Pritchard Work Phone: [facility] 07-07-2023 09:23-0400 Diastolic blood pressure 84 mm[Hg] DO Roma Pritchard Work Phone: [facility] 07-07-2023 09:23-0400 SaO2% (BldA) [Mass fraction] 97 % DO Roma Pritchard Work Phone: [facility] 07-07-2023 09:23-0400 Systolic blood pressure 120 mm[Hg] DO Roma Pritchard Work Phone: [facility] 05-27-2023 09:13-0400 Body temperature 98.6 [degF] MARIANA RITCHIE [facility] 05-27-2023 09:13-0400 Diastolic blood pressure 80 mm[Hg] MARIANA RITCHIE [facility] 05-27-2023 09:13-0400 Heart rate 77 /min MARIANA RITCHIE [facility] 05-27-2023 09:13-0400 Respiratory rate 16 /min MARIANA RITCHIE [facility] 05-27-2023 09:13-0400 Systolic blood pressure 132 mm[Hg] MARIANA RITCHIE [facility] 04-27-2023 08:37-0500 Body height 157.48 cm DO Roma Pritchard Work Phone: [facility] 04-02-2023 08:10-0500 Body height 157.48 cm Roma Pritchard Other [employer] Other 04-02-2023 08:10-0500 Body mass index (BMI) [Ratio] 26.34 kg/m2 Roma Pritchard Other [employer] Other 04-02-2023 08:10-0500 Body temperature 98.8 [degF] Roma Pritchard Other [employer] Other 04-02-2023 08:10-0500 Body weight 65.32 kg Roma Pritchard Other [employer] Other 04-02-2023 08:10-0500 Diastolic blood pressure 80 mm[Hg] Roma Pritchard Other [employer] Other 04-02-2023 08:10-0500 Respiratory rate 16 /min Roma Pritchard Other [employer] Other 04-02-2023 08:10-0500 SaO2% (BldA) [Mass fraction] 95 % Roma Pritchard Other [employer] Other 04-02-2023 08:10-0500 Systolic blood pressure 128 mm[Hg] Roma Pritchard Other [employer] Other 03-09-2023 11:00-0500 Body height 157.48 cm Tanna Wilson Other [facility] 03-09-2023 11:00-0500 Body mass index (BMI) [Ratio] 26.52 kg/m2 Tanna Wilson Other [employer] Other 03-09-2023 11:00-0500 Body weight 65.77 kg Tanna Wilson Other [facility] 03-09-2023 11:00-0500 Diastolic blood pressure 89 mm[Hg] Tanna Wilson Other [facility] 03-09-2023 11:00-0500 SaO2% (BldA) [Mass fraction] 97 % Tanna Wilson Other [employer] Other 03-09-2023 11:00-0500 Systolic blood pressure 149 mm[Hg] Tanna Wilson Other [facility] 03-03-2023 08:15-0500 Body height 157.48 cm Colby Shaffer Other [facility] 03-03-2023 08:15-0500 Body mass index (BMI) [Ratio] 26.34 kg/m2 Colby Shaffer Other [employer] [facility] [employer] Other 03-03-2023 08:15-0500 Body weight 65.32 kg Colby Shaffer Other [employer] Other 03-03-2023 08:15-0500 Body weight 65.31 kg DO Roma Pritchard Work Phone: [facility] 01-06-2023 08:15-0500 Blood Pressure Location MARIANADINA DUONG [facility] 01-06-2023 08:15-0500 Diastolic blood pressure 79 mm[Hg] MARIANA RITCHIE [facility] 01-06-2023 08:15-0500 Heart rate 75 /min MARIANA RITCHIE [facility] 01-06-2023 08:15-0500 Respiratory rate 16 /min MARIANA RITCHIE [facility] 01-06-2023 08:15-0500 Systolic blood pressure 127 mm[Hg] MARIANA DUONG [facility] 12-31-2022 10:30-0500 Body height 157.48 cm Roma Pritchard Other [employer] Other 11-04-2022 12:20-0400 Diastolic blood pressure 77 mm[Hg] DO Roma Pritchard Work Phone: [facility] 11-04-2022 12:20-0400 Heart rate 74 /min DO Roma Pritchard Work Phone: [facility] 11-04-2022 12:20-0400 Respiratory rate 16 /min DO Roma Pritchard Work Phone: [facility] 11-04-2022 12:20-0400 SaO2% (BldA) [Mass fraction] 98 % DO Roma Pritchard Work Phone: [facility] 11-04-2022 12:20-0400 Systolic blood pressure 122 mm[Hg] DO Roma Pritchard Work Phone: [facility] 11-04-2022 10:51-0400 Body temperature 97.4 [degF] DO Roma Pritchard Work Phone: [facility] 11-04-2022 10:11-0400 Inhaled oxygen flow rate 3 L/min DO Roma Pritchard Work Phone: [facility] 11-04-2022 07:41-0400 Body height 160.02 cm DO Roma Pritchard Work Phone: [facility] 11-04-2022 07:41-0400 Body mass index (BMI) [Ratio] 24.5 kg/m2 DO Roma Pritchard Work Phone: [facility] 11-04-2022 07:41-0400 Body weight 63 kg DO Roma Pritchard Work Phone: [facility] 10-23-2022 09:30-0400 Body height 157.48 cm Ar Jacksonle II Other [employer] Other 10-23-2022 09:30-0400 Body mass index (BMI) [Ratio] 25.6 kg/m2 Ar Garciaisle II Other [employer] Other 10-23-2022 09:30-0400 Body weight 63.5 kg Ar Jacksonle II Other [employer] Other 06-26-2022 10:10-0400 Body height 157.48 cm Roma Pritchard Other [employer] Other 06-26-2022 10:10-0400 Body mass index (BMI) [Ratio] 25.79 kg/m2 Roma Pritchard Other [employer] Other 06-26-2022 10:10-0400 Body weight 63.96 kg Roma Pritchard Other [employer] Other 06-26-2022 10:10-0400 Diastolic blood pressure 82 mm[Hg] Roma Pritchard Other [employer] Other 06-26-2022 10:10-0400 Systolic blood pressure 125 mm[Hg] Roma Pritchard Other [employer] Other 04-02-2022 10:10-0500 Body height 157.48 cm Roma Pritchard Other [employer] Other 04-02-2022 10:10-0500 Body mass index (BMI) [Ratio] 26.98 kg/m2 Roma Pritchard Other [employer] Other 04-02-2022 10:10-0500 Body temperature 96.7 [degF] Roma Pritchard Other [employer] Other 04-02-2022 10:10-0500 Body weight 66.91 kg Roma Pritchard Other [employer] Other 04-02-2022 10:10-0500 Diastolic blood pressure 86 mm[Hg] Roma Pritchard Other [employer] Other 04-02-2022 10:10-0500 Respiratory rate 18 /min Roma Pritchard Other [employer] Other 04-02-2022 10:10-0500 SaO2% (BldA) [Mass fraction] 97 % Roma Pritchard Other [employer] Other 04-02-2022 10:10-0500 Systolic blood pressure 132 mm[Hg] Roma Pritchard Other [employer] Other 03-05-2022 10:00-0500 Body height 157.48 cm Ar Jacksonle II Other [employer] Other 03-05-2022 10:00-0500 Body mass index (BMI) [Ratio] 26.88 kg/m2 Ar Virgil II Other [employer] Other 03-05-2022 10:00-0500 Body weight 66.68 kg Ar Shawano II Other [employer] Other 02-25-2022 11:15-0500 Body height 157.48 cm Tanna Wilson Other [employer] Other 02-25-2022 11:15-0500 Body mass index (BMI) [Ratio] 26.88 kg/m2 Tanna Wilson Other [employer] Other 02-25-2022 11:15-0500 Body temperature 96.8 [degF] Tanna Wilson Other [employer] Other 02-25-2022 11:15-0500 Body weight 66.68 kg Tanna Wilson Other [employer] Other 02-25-2022 11:15-0500 Diastolic blood pressure 83 mm[Hg] Tanna Wilson Other [employer] Other 02-25-2022 11:15-0500 SaO2% (BldA) [Mass fraction] 96 % Tanna Wilson Other [employer] Other 02-25-2022 11:15-0500 Systolic blood pressure 147 mm[Hg] Tanna Wilson Other [employer] Other 12-31-2021 10:10-0500 Body height 157.48 cm Roma Pritchard Other [employer] Other 10-02-2021 09:10-0400 Body height 157.48 cm Roma Pritchard Other [employer] Other 10-02-2021 09:10-0400 Body mass index (BMI) [Ratio] 27.36 kg/m2 Roma Pritchard Other [employer] Other 10-02-2021 09:10-0400 Body weight 67.86 kg Roma Pritchard Other [employer] Other 10-02-2021 09:10-0400 Diastolic blood pressure 86 mm[Hg] Roma Pritchard Other [employer] Other 10-02-2021 09:10-0400 Systolic blood pressure 123 mm[Hg] Roma Pritchard Other [employer] Other 06-26-2021 09:50-0400 Body height 157.48 cm Roma Pritchard Other [employer] Other 05-07-2021 09:30-0400 Body height 157.48 cm Tanna Wilson Other [employer] Other 05-07-2021 09:30-0400 Body mass index (BMI) [Ratio] 28.44 kg/m2 Tanna Wilson Other [employer] Other 05-07-2021 09:30-0400 Body temperature 97.1 [degF] Tanna Wilson Other [employer] Other 05-07-2021 09:30-0400 Body weight 70.53 kg Tanna Wilson Other [employer] Other 05-07-2021 09:30-0400 Diastolic blood pressure 85 mm[Hg] Tanna Wilson Other [employer] Other 05-07-2021 09:30-0400 SaO2% (BldA) [Mass fraction] 97 % Tanna Wilson Other [employer] Other 05-07-2021 09:30-0400 Systolic blood pressure 128 mm[Hg] Tanna Wilson Other [employer] Other 04-19-2021 11:45-0500 Body height 157.48 cm Megan Asencio Other [employer] Other 04-19-2021 11:45-0500 Body mass index (BMI) [Ratio] 27.62 kg/m2 Megan Asencio Other [employer] Other 04-19-2021 11:45-0500 Body weight 68.49 kg Megan Asencio Other [employer] Other 03-22-2021 09:10-0500 Body height 157.48 cm Roma Pritchard Other [employer] Other 03-22-2021 09:10-0500 Body mass index (BMI) [Ratio] 28.16 kg/m2 Roma Pritchard Other [employer] Other 03-22-2021 09:10-0500 Body temperature 97.6 [degF] Roma Pritchard Other [employer] Other 03-22-2021 09:10-0500 Body weight 69.85 kg Roma Pritchard Other [employer] Other 03-22-2021 09:10-0500 Diastolic blood pressure 78 mm[Hg] Roma Pritchard Other [employer] Other 03-22-2021 09:10-0500 Respiratory rate 16 /min Roma Pritchard Other [employer] Other 03-22-2021 09:10-0500 SaO2% (BldA) [Mass fraction] 99 % Roma Pritchard Other [employer] Other 03-22-2021 09:10-0500 Systolic blood pressure 122 mm[Hg] Roma Pritchard Other [employer] Other 12-18-2020 09:10-0400 Body height 157.48 cm Roma Ermacarmen Other [employer] Other 12-18-2020 09:10-0400 Body mass index (BMI) [Ratio] 28.16 kg/m2 Roma Ritchiecarmen Other [employer] Other 12-18-2020 09:10-0400 Body temperature 97.3 [degF] Roma Ermacarmen Other [employer] Other 12-18-2020 09:10-0400 Body weight 69.85 kg Roma Ermacarmen Other [employer] Other 12-18-2020 09:10-0400 Diastolic blood pressure 84 mm[Hg] Roma Pritchard Other [employer] Other 12-18-2020 09:10-0400 Respiratory rate 18 /min Roma Pritchard Other [employer] Other 12-18-2020 09:10-0400 SaO2% (BldA) [Mass fraction] 97 % Roma Ritchiecarmen Other [employer] Other 12-18-2020 09:10-0400 Systolic blood pressure 122 mm[Hg] Roma Pritchard Other [employer] Other Encounters Encounter Date Encounter Type Care Provider Facility Start: 12-17-2023 End: 12-17-2023 KitNipBoxjair Yates DPM Work Phone: [facility] Start: 12-17-2023 End: 12-17-2023 KitNipBoxjair Yates DPM Work Phone: [facility] Start: 12-17-2023 End: 12-17-2023 Office outpatient visit 15 minutes Juan Yates DPM Work Phone: [facility] Comment on above: Left Achilles tendin itis (Primary Dx); Contracture of left ankle; Pain due to onychomycosis of toenails of both feet Start: 12-17-2023 End: 12-17-2023 ambulatory JUAN YATES Not Available Start: 11-16-2023 End: 11-16-2023 ambulatory DO Roma Pritchard Work Phone: [facility] Work Phone: Start: 11-16-2023 End: 11-16-2023 Patient encounter procedure DO Roma Pritchard Work Phone: [facility] Work Phone: Start: 10-22-2023 End: 10-22-2023 ambulatory DO Roma Pritchard Work Phone: [facility] Work Phone: Start: 10-22-2023 End: 10-22-2023 Patient encounter procedure DO Roma Pritchard Work Phone: [facility] [address] Work Phone: Start: 10-06-2023 End: 10-06-2023 ambulatory DO Roma Pritchard Work Phone: [facility] Work Phone: Start: 10-06-2023 End: 10-06-2023 Patient encounter procedure DO Roma Pritchard Work Phone: [facility] Work Phone: Start: 10-01-2023 End: 10-01-2023 ambulatory JUAN YATES Not Available Start: 10-01-2023 End: 10-01-2023 Patient encounter procedure DO Roma Pritchard Work Phone: [facility] [place] Work Phone: Start: 10-01-2023 End: 10-01-2023 ambulatory DO Roma Pritchard Work Phone: [facility] Work Phone: Start: 07-16-2023 End: 07-16-2023 ambulatory JUAN YATES Not Available Start: 07-07-2023 End: 07-07-2023 Patient encounter procedure DO Roma Pritchard Work Phone: [facility] Work Phone: Start: 06-11-2023 End: 06-11-2023 Patient encounter procedure DO Roma Pritchard Work Phone: [facility] [address] Work Phone: Start: 06-11-2023 End: 06-11-2023 ambulatory DO Roma Pritchard Work Phone: [facility] Work Phone: Start: 05-27-2023 End: 05-27-2023 Patient encounter procedure DO Roma Pritchard Work Phone: [facility] Work Phone: Start: 05-27-2023 End: 05-27-2023 ambulatory DO Roma Pritchard Work Phone: [facility] Work Phone: Start: 05-07-2023 End: 05-07-2023 ambulatory JUAN YATES Not Available Start: 05-04-2023 End: 05-04-2023 ambulatory LULA ZAMORANO Not Available Start: 04-27-2023 End: 04-27-2023 Patient encounter procedure DO Roma Pritchard Work Phone: [facility] Work Phone: Start: 04-02-2023 End: 04-02-2023 ambulatory Roma Pritchard Other [employer] Other Start: 04-02-2023 Office outpatient vi sit 25 minutes Roma Pritchard [facility] Start: 03-25-2023 End: 03-25-2023 Patient encounter procedure DO Roma Pritchard Work Phone: [facility] [place] Work Phone: Start: 03-25-2023 End: 03-25-2023 ambulatory DO Roma Pritchard Work Phone: [facility] Work Phone: Start: 03-09-2023 Office outpatient vi sit 15 minutes Tanna Wilson [facility] Start: 03-09-2023 End: 03-09-2023 Patient encounter procedure DO Roma Pritchard Work Phone: [facility]Sleep [facility] Work Phone: Start: 03-09-2023 End: 03-09-2023 ambulatory DO Roma Pritchard Work Phone: [facility] Work Phone: Start: 03-09-2023 End: 03-09-2023 Patient encounter procedure DO Roma Pritchard Work Phone: [facility] Work Phone: Start: 03-04-2023 End: 03-04-2023 ambulatory Colby Shaffer Other [employer] Other Start: 03-04-2023 Telephone encounter Colby Shaffer [facility] Start: 03-03-2023 Office outpatient ne w 45 minutes Colby Shaffer [facility] Start: 03-03-2023 End: 03-03-2023 Patient encounter procedure DO Roma Pritchard Work Phone: [facility] Start: 03-03-2023 End: 03-03-2023 ambulatory DO Roma Pritchard Work Phone: [facility] [facility] Work Phone: Start: 03-03-2023 End: 03-03-2023 Patient encounter procedure DO Roma Pritchard Work Phone: [facility] Work Phone: Start: 02-26-2023 End: 02-26-2023 ambulatory JUAN YATES Not Available Start: 01-19-2023 End: 01-19-2023 Patient encounter procedure DO Roma Pritchard Work Phone: [facility] Work Phone: Start: 01-19-2023 End: 01-19-2023 ambulatory DO Roma Pritchard Work Phone: [facility] Work Phone: Start: 01-06-2023 End: 01-06-2023 ambulatory ROBERT DUONG Facility:[facility] Start: 01-06-2023 End: 01-06-2023 Patient encounter procedure MARIANA DUONG [facility] Start: 01-01-2023 End: 01-01-2023 ambulatory Roma Pritchard Other [employer] Other Start: 01-01-2023 Telephone encounter Roma Pritchard [facility] Start: 12-31-2022 End: 12-31-2022 ambulatory Roma Pritchard Other [employer] Other Start: 12-31-2022 Telephone encounter Roma Pritchard [facility] [place] Start: 12-31-2022 End: 12-31-2022 Patient encounter procedure DO Roma Pritchard Work Phone: [facility] Work Phone: Start: 12-26-2022 End: 12-26-2022 Patient encounter procedure DO Roma Pritchard Work Phone: [facility] [place] Work Phone: Start: 12-26-2022 End: 12-26-2022 ambulatory DO Roma Pritchard Work Phone: [facility] Work Phone: Start: 12-17-2022 (Post-Op) Post-Op Ar Shawano II [facility] Start: 12-17-2022 End: 12-17-2022 Patient encounter procedure DO Roma Pritchard Work Phone: [facility] Start: 12-17-2022 End: 12-17-2022 ambulatory Roma Pritchard [employer] Other Start: 11-19-2022 (Post-Op) Post-Op Ar Shawano II [facility] Start: 11-19-2022 End: 11-19-2022 ambulatory Ra Shawano II Other [employer] Other Start: 11-06-2022 End: 11-06-2022 ambulatory Ar Virgil II Other [employer] Other Start: 11-06-2022 Telephone encounter Ar Shawano II [facility] Start: 11-04-2022 End: 11-04-2022 Admission to same day surgery center DO Roma Pritchard Work Phone: [facility] [place] Start: 11-04-2022 End: 11-04-2022 ambulatory Roma Pritchard Facility:[facility] Start: 10-29-2022 End: 10-29-2022 ambulatory Ar Virgil II Other [employer] Other Start: 10-29-2022 Telephone encounter Ar Virgil II [facility] Start: 10-24-2022 (Prolonged) Prolonge d Services Ar Shawano II [facility] Start: 10-24-2022 End: 10-24-2022 ambulatory Ar Virgil II Other [employer] Other Start: 10-23-2022 Patient encounter procedure Ar Shawano II [facility] Start: 10-23-2022 End: 10-23-2022 Discharged Recurring DO Roma Pritchard Work Phone: [facility] Start: 10-23-2022 End: 10-23-2022 ambulatory DO Roma Pritchard Work Phone: [facility] Work Phone: Start: 10-17-2022 End: 10-17-2022 Patient encounter procedure DO Roma Pritchard Work Phone: [facility] Work Phone: Start: 10-17-2022 End: 10-17-2022 ambulatory DO Roma Pritchard Work Phone: [facility] Work Phone: Start: 09-30-2022 End: 09-30-2022 ambulatory Roma Pritchard Other [employer] Other Start: 09-30-2022 Telephone encounter Roma Pritchard [facility] [place] Start: 09-19-2022 End: 09-19-2022 ambulatory Roma Pritchard Other [employer] Other Start: 09-19-2022 Telephone encounter Roma Pritchard [facility] Start: 09-18-2022 End: 09-18-2022 ambulatory Ar Herman II Other [employer] Other Start: 09-18-2022 Telephone encounter Ar Herman II [facility] Start: 09-15-2022 End: 09-15-2022 Patient encounter procedure DO Roma Pritchard Work Phone: [facility] [place] Work Phone: Start: 09-10-2022 End: 09-10-2022 ambulatory Roma Pritchard Other [employer] Other Start: 09-10-2022 Telephone encounter Roma Pritchard [facility] [place] Start: 06-26-2022 End: 06-26-2022 ambulatory Roma Pritchard Other [employer] Other Start: 06-26-2022 Telephone encounter Roma Pritchard [facility] [place] Start: 06-12-2022 End: 06-12-2022 ambulatory Roma Pritchard Other [employer] Other Start: 06-12-2022 Telephone encounter Roma Pritchard [facility] [place] Start: 04-15-2022 End: 04-15-2022 ambulatory Roma Pritchard Other [employer] Other Start: 04-15-2022 Telephone encounter Roma Pritchard [facility] [place] Start: 04-11-2022 End: 04-12-[address] ROMA PRITCHARD Facility:[facility] Start: 04-09-2022 End: 05-02-[address] ROMA PRITCHARD Facility:[facility] Start: 04-07-2022 End: 04-07-2022 ambulatory Roma Pritchard Other [employer] Other Start: 04-07-2022 Telephone encounter Roma Pritchard [facility] [place] Start: 04-04-2022 End: 04-05-[address] ROMA PRITCHARD Facility:[facility] Start: 04-02-2022 End: 04-02-2022 ambulatory Roma Pritchard Other [employer] Other Start: 04-02-2022 Office outpatient vi sit 25 minutes Roma Pritchard [facility] Start: 03-28-2022 End: 03-28-2022 ambulatory DO Roma Pritchard Work Phone: [facility] Work Phone: Start: 03-28-2022 End: 03-28-2022 Patient encounter procedure DO Roma Pritchard Work Phone: [facility] [place] Work Phone: Start: 03-17-2022 End: 03-17-2022 ambulatory Roma Pritchard Other [employer] Other Start: 03-17-2022 Telephone encounter Roma Pritchard [facility] Start: 03-13-2022 End: 03-13-2022 ambulatory Roma Pritchard Other [employer] Other Start: 03-13-2022 Telephone encounter [facility] Start: 03-05-2022 FQHC visit new patient Ar Jackson mariano [facility] Start: 03-05-2022 End: 03-05-2022 ambulatory DO Roma Pritchard Work Phone: [facility] Work Phone: Start: 03-05-2022 End: 03-05-2022 Patient encounter procedure DO Roma Pritchard Work Phone: [facility] Start: 02-25-2022 Office outpatient vi sit [address] [facility] Start: 02-25-2022 End: 02-25-2022 ambulatory DO Roma Pritchard Work Phone: [facility] Work Phone: Start: 02-25-2022 End: 02-25-2022 Patient encounter procedure DO Roma Pritchard Work Phone: [facility] Work Phone: Start: 01-21-2022 End: 01-21-2022 ambulatory Roma Pritchard Other [employer] Other Start: 01-21-2022 Telephone encounter Roma Pritchard [facility] [place] Start: 01-17-2022 End: 01-17-2022 Patient encounter procedure DO Roma Pritchard Work Phone: [facility] Work Phone: Start: 01-13-2022 End: 01-13-2022 ambulatory Roma Pritchard Other [employer] Other Start: 01-13-2022 Telephone encounter Roma Pritchard [facility] [place] Start: 01-11-2022 End: 01-11-2022 ambulatory DO Roma Pritchard Work Phone: [facility] Work Phone: Start: 01-11-2022 End: 01-11-2022 Patient encounter procedure DO Roma Pritchard Work Phone: [facility] [place] Start: 01-08-2022 End: 01-08-2022 ambulatory Roma Pritchard Other [employer] Other Start: 01-08-2022 Telephone encounter Roma Pritchard [facility] [place] Start: 12-31-2021 End: 12-31-2021 ambulatory Roma Pritchard Other [employer] Other Start: 12-31-2021 Telephone encounter Roma Pritchard [facility] [place] Start: 12-30-2021 End: 12-31-[address] ROMA BOUDREAUX Facility:[facility] Start: 12-04-2021 End: 12-04-2021 ambulatory Roma Pritchard Other [employer] Other Start: 12-04-2021 Telephone encounter Roma Pritchard [facility] [place] Start: 10-29-2021 End: 11-20-[address] ROMA PRITCHARD Facility:[facility] Start: 10-21-2021 End: 10-21-2021 ambulatory Roma Pritchrad Other [employer] Other Start: 10-21-2021 Telephone encounter Roma Pritchard [facility] [place] Start: 10-17-2021 End: 10-18-[address] ROMA PRITCHARD Facility:[facility] Start: 10-11-2021 End: 10-11-2021 ambulatory Roma Pritchard Other [employer] Other Start: 10-11-2021 Telephone encounter Roma Pritchard [facility] Start: 10-02-2021 End: 10-02-2021 ambulatory Roma Pritchard Other [employer] Other Start: 10-02-2021 Telephone encounter Roma Pritchard [facility] Start: 09-23-2021 End: 09-23-2021 Patient encounter procedure DO Roma Pritchard Work Phone: [facility] [place] Start: 09-19-2021 End: 09-20-[address] ROMA PRITCHARD Facility:[facility] Start: 08-29-2021 End: 08-30-[address] ROMA PRITCHARD Facility:[facility] Start: 08-12-2021 End: 08-12-2021 ambulatory Roma Pritchard Other [employer] Other Start: 08-12-2021 Telephone encounter Roma Pritchard [facility] Start: 08-08-2021 End: 08-09-[address] ROMA PRITCHARD [employer] Other Start: 08-08-2021 Telephone encounter Roma Pritchard [facility] Start: 08-02-2021 End: 08-02-2021 ambulatory Roam Pritchard Other [employer] Other Start: 08-02-2021 Telephone encounter Roma Pritchard [facility] Start: 06-26-2021 End: 06-26-2021 ambulatory Roma Pritchard Other [employer] Other Start: 06-26-2021 Telephone encounter Roma Pritchard [facility] Start: 06-18-2021 End: 06-18-2021 ambulatory Roma Pritchard Other [employer] Other Start: 06-18-2021 Telephone encounter Roma Pritchard [facility] [place] Start: 05-07-2021 End: 05-07-2021 ambulatory Tanna Wilson Other [employer] Other Start: 05-07-2021 Office outpatient vi sit 15 minutes Tanna Wilson [facility] Start: 04-24-2021 End: 04-24-2021 ambulatory Roma Pritchard Other [employer] Other Start: 04-24-2021 Telephone encounter Roma Pritchard [facility] [place] Start: 04-19-2021 End: 04-19-2021 ambulatory Megan Asencio Other [employer] Other Start: 04-19-2021 Office outpatient vi sit 15 minutes Megan Asencio [facility] Start: 03-22-2021 End: 03-22-2021 ambulatory Roma Pritchard Other [employer] Other Start: 03-22-2021 Office outpatient vi sit 25 minutes Roma Pritchard [facility] [place] Start: 12-28-2020 End: 12-28-2020 ambulatory Roma Pritchard Other [employer] Other Start: 12-28-2020 Telephone encounter Roma Pritchard [facility] [place] Start: 12-21-2020 Telephone encounter Roma Pritchard [facility] [place] Start: 12-18-2020 Office outpatient vi sit 25 minutes Roma Pritchard [facility] [place] Procedures Date Procedure Procedure Detail Performing Clinician Start: 10-22-2023 CT of chest without contrast DO Roma Pritchard Work Phone: Start: 06-11-2023 CT of abdomen and pe lvis without contrast DO Roma Pritchard Work Phone: Start: 05-27-2023 Dual energy X-ray absorptiometry DO Roma Pritchard Work Phone: Start: 03-03-2023 Plain X-ray of right shoulder DO Roma Pritchard Work Phone: Start: 01-19-2023 End: 01-19-2023 Screening mammography of bilateral breasts DO Roma Pritchard Work [...] Surgery: [id number] Result Comment: PERF ORMED BY: [address] [place] [address] PATHOLOGIST MARINE FIRER CIRA GRAHAM M.D. Start: 03-28-2022 Urine culture DO Roma Pritchard Work Phone: Start: 03-05-2022 Plain X-ray of right hip DO Roma Pritchard Work Phone: Start: 01-17-2022 Screening mammograph y of bilateral breasts DO Roma Pritchard Work Phone: Start: 01-11-2022 CT of chest without contrast DO Roma Pritchard Work Phone: Breast surgery (qual ifier value) MARIANA YUNRY Colonoscopy MARIANA RITCHIE H/O: artificial joint Aftercare following joint replacement surgery DO Roma Pritchard Work Phone: Insertion of hip prosthesis MARIANA RITCHIE Ligation of fallopia n tube MARIANADINA DUONG Urine culture DO Roma high Work Phone: Plan of Treatment Date Care Activity Detail Author Start: 05-05-2024 End: 05-05-2024 Patient encounter procedure 05/05/2024 8:30 AM EDT Office Visit [facility] [address] [place] [address] Lula Zamorano APRN-RECORD LABEL INTERN [address] [place] [address] [facility] Start: 02-25-2024 End: 02-25-2024 Patient encounter procedure 02/25/2024 10:30 AM EST Procedure Visit [facility] [address] [place] [id number] Juan Yates DPM [address] [facility] [address] [place] [address] [facility] Start: 01-20-2024 Screening for malign ant neoplasm of breast Mammogram [facility] Start: 01-14-2024 ambulatory Ambulatory Facility:[facility] Start: 01-07-2024 End: 01-07-2024 Patient encounter procedure 01/07/2024 10:30 AM EST Office Visit [facility] [address] [place] [id number] Orlando Vicente MD [address] [place] [address] [facility] Start: 12-31-2023 End: 12-31-2023 Patient encounter procedure 12/31/2023 11:10 AM EST Office Visit [facility] [address] [place] [address] Juan Yates DPM [address] [facility] [address] [place] [address] [facility] Start: 12-17-2023 End: 12-17-2023 Patient encounter procedure 12/17/2023 10:10 AM EDT Procedure Visit [facility] [address] [place] [address] Juan aYtes, DPRubi [address] [facility] [address] [place] [address] Left Achilles tendinitis (Primary Dx); Contracture of left ankle; Pain due to onychomycosis of toenails of both feet [facility] Comment on above: Left Achilles tendin itis (Primary Dx); Contracture of left ankle; Pain due to onychomycosis of toenails of both feet Start: 10-25-2023 Influenza vaccination Influenza Vacc ine (#1) [facility] Start: 10-01-2023 [facility] Start: 03-25-2023 [facility] Start: 11-04-2022 End: 11-04-2022 [facility] Start: 10-17-2022 [facility] Start: 03-28-2022 [facility] Start: 1955 Screening for malign ant neoplasm of colon [facility] Bacteria identified in Urine by Culture [facility] Comprehensive metabo lic 2000 panel - Serum or Plasma [facility] CT Chest WO contrast [facility] Glucose measurement estimated from glycated hemoglobin [facility] Glucose measurement estimated from glycated hemoglobin [facility] Glucose measurement estimated from [facility] hemoglobin [facility] Hemoglobin A1c/Hemoglobin.total in Blood [facility] Immunizations Immunization Date Immunization Notes Care Provider Fa lizette 11-16-2023 influenza, high dose seasonal, preservative-free DO Roma Pritchard Work Phone: [facility] 12-23-2022 influenza virus vaccine, unspecified formulation MARIANA DUONG [facility] 12-04-2022 Flu Shot - Documentation Purposes Only Roma Pritchard Other [facility] 06-13-2022 Prevnar 20 Roma Pritchard Other [facility] 11-23-2021 COVID-19 mRNA Bivale nt Booster (In [employer]) DO Roma Pritchard Work Phone: [facility] 11-20-2021 influenza, seasonal, injectable Roma Pritchard Other [facility] 11-20-2021 Fluzone QIV High-Dos e 65YR+ DO Roma Pritchard Work Phone: [facility] 11-20-2021 influenza virus vaccine, unspecified formulation MARIANA DUONG [facility] 12-12-2020 COVID-19 Vaccine Pfi zer - Documentation Purposes Only Roma Pritchard Other [facility] 12-04-2020 influenza, seasonal, injectable Roma Pritchard Other [facility] 11-07-2020 influenza virus vaccine, unspecified formulation MARIANA DUONG [facility] 11-07-2020 influenza, injectabl e, quadrivalent, preservative free DO Roma Pritchard Work Phone: [facility] 07-11-2020 Kenalog -40 mg Roma Pritchard Other [employer] Other 05-22-2020 COVID-19 Vaccine Pfi zer - Documentation Purposes Only Roma Pritchard Other [facility] 05-16-2020 COVID-19 Vaccine Pfi zer - Documentation Purposes Only Roma Pritchard Other [facility] 05-12-2020 COVID-19 mRNA, Comirnaty (Pfizer) DO Roma Pritchard Work Phone: [facility] 05-01-2020 COVID-19 Vaccine Pfi zer - Documentation Purposes Only Roma Pritchard Other [facility] 04-25-2020 SARS-CoV-2 (COVID-19 ) mRNA BNT-162b2 vax MARIANA DUONG [facility] 12-09-2019 influenza, seasonal, injectable Roma Pritchard Other [facility] 12-09-2019 influenza virus vaccine, unspecified formulation MARIANA DUONG [facility] 12-09-2019 influenza, injectabl e, quadrivalent, preservative free DO Roma Pritchard Work Phone: [facility] 11-24-2019 influenza virus vaccine, unspecified formulation MARIANA DUONG [facility] 01-12-2019 Kenalog -40 mg Roma Pritchard Other [employer] Other 12-31-2017 zoster vaccine recombinant Roma Pritchard Other [facility] 10-31-2017 zoster vaccine recombinant Roma Pritchard Other [facility] 10-31-2017 tetanus toxoid, redu cuba diphtheria toxoid, and acellular pertussis vaccine, adsorbed Roma Pritchard Other [facility] 11-27-2016 zoster vaccine, live Roma hidalgo Other [facility] 11-21-2016 tetanus toxoid, redu cuba diphtheria toxoid, and acellular pertussis vaccine, adsorbed Roma Pritchard Other [facility] Payers Date Payer Category Payer Medicare MEDICARE [id number] 2021 Self-pay [id number] 2002 Blue Cross Blue Shield BCBS [id number] 1959 Blue Cross Blue [facility] [id number] 2.16.840.1.303029.19 1959 Medicare [id number] 2.840.1.166189.19 1956 Unknown [id number] 2.840.1.205637.3.579. 2.59 1956 Unknown [id number] 2.16840.1.039824.3.579. 2.59 1956 Unknown [id number] 2.16840.1.860470.3.579. 2.59 1956 Unknown [id number] 2.16840.1.320417.3.579. 2.59 1956 Unknown [id number] 2.16.840.1.100368.3.579. 2.59 1956 Unknown [id number] 2.16840.1.166552.3.579. 2.593 1956 Unknown [id number] 2.16.840.1.666838.3.579. 2.593 1956 Unknown [id number] 2.16.840.1.318361.3.579. 2.593 1956 Unknown [id number] 2.16.840.1.392164.3.579. 2.593 1956 Unknown [id number] 2.16.840.1.658698.3.579. 2.727 1956 Unknown [id number] 2.16.840.1.458233.3.579. 2.727 1956 Unknown [id number] 2.840.1.583984.3.579. 2.727 1956 Unknown [id number] 2.840.1.030546.3.579. 2.1259 1956 Unknown [id number] 2.840.1.687546.3.579. 2.1259 1956 Unknown [id number] 2.840.1.691100.3.579. 2.1259 1956 Unknown [id number] 2.16.840.1.644659.3.579. 2.1259 1956 Unknown [id number] 2.16840.1.422327.3.579. 2.1259 1956 Unknown [id number] 2.16.840.1.326086.3.579. 2.1259 Unknown [id number] 2.16.840.1.123716.3.579. 2.531 Unknown [id number] 2.16.840.1.843391.3.579. 2.531 Unknown [id number] 2.16.840.1.800115.3.579. 2.531 Unknown [id number] 2.16.840.1.026153.3.579. 2.531 Unknown [id number] 2.16.840.1.610325.3.579. 2.531 Unknown [id number] 2.16.840.1.690149.3.579. 2.531 Unknown [id number] 2.16.840.1.635888.3.579. 2.531 Unknown [id number] 2.16.840.1.359972.3.579. 2.531 Unknown [id number] 2.16.840.1.848269.3.579. 2.531 Unknown [id number] 2.16.840.1.241351.3.579. 2.531 Unknown [id number] 2.16.840.1.358968.3.579. 2.531 Unknown [id number] 2.16.840.1.467084.3.579. 2.531 Social History Date Type Detail Facility Unknown if ever smoked [employer] Other Start: 01-01-2023 End: 10-01-2023 Sex Assigned At [facility] Start: 12-26-2019 End: 10-01-2023 Tobacco smoking status MIIS Ex-smoker (finding) [facility] Start: 1955 Sex Assigned At Female F [facility] Tobacco smoking status Never [facility] [place] Start: 03-16-1969 End: 10-14-2016 History of tobacco use Current smoker [facility] Start: 03-16-1969 End: 10-14-2016 History of tobacco use Cigarette Smoker [facility] Start: 01-01-2023 End: 10-01-2023 Cigarettes smoked current (pack per day) - Reported [address] [facility] History of tobacco use Passive smoker [facility] Start: 10-01-2023 Tobacco use and exposure Smokeless tobacco non-user [facility] Start: 10-01-2023 End: 12-17-2023 Alcoholic beverage intake Current drinker of alcohol (finding) [facility] Start: 02-26-2023 Alcohol Comment maybe one glas s a month,,,, caffeine intake: 1-2 cups per day coffee [facility] Start: 05-07-2022 Gender identity Identifies as female gender (finding) [facility] Medical Equipment Procedure Code Equipment Code Equipment Origin al Text Equipment Identifier Dates Arthroplasty, hip, total, anterior approach Acetabular shell [id number] FDA Start: 11-04-2022 Arthroplasty, hip, total, anterior approach Ceramic femoral head prosthesis ()[id number] FDA Start: 11-04-2022 Arthroplasty, hip, total, anterior approach Coated hip femur prosthesis, modular ()[id number] FDA Start: 11-04-2022 Arthroplasty, hip, total, anterior approach Non-constrained polyethylene acetabular liner ()[id number] FDA Start: 11-04-2022 Goals Date Patient Goal Desired Activity /State Functional Status Date Assessment Result Facility 05-27-2023 Functional Status N/A [facility] 01-06-2023 Functional Status N/A [facility] Clinical Notes 12-18-2020 to 12-17-2023 Juan Yates, ZAIRE - 12/17/2023 10:10 AM EDT Note Date & Type Note Facility 12-17-2023 History of Presen t illness Narrative Patient: Teagan Esquedaus : 1955 PCP: Roma Pritchard MD SUBJECTIVE This is a 68 y.o. female that presents today with a CC of elongated, thick nails. Pt states nails have been elongated and thick for many years and cause pain with ambulation in shoegear. Pt presents today for nail care and treatment. Patient also presents today follow up of left Achilles tendinitis. She has tried different shoes and heel lifts as well as ice and Patient rates pain a 5/10. Allergies: No Known Allergies Past Medical History: Past Medical History: Diagnosis Date Fibrocystic breast Hyperlipidemia (CMS/HCC) Hypertension (CMS/[facility]) Medications: Current Outpatient Medications: ALPRAZolam (Xanax) 0.5 MG tablet, Take 0.5 mg by mouth in the morning and 0.5 mg before bedtime., Disp: , Rfl: ascorbic acid (Vitamin C) 500 MG tablet, Take 500 mg by mouth., Disp: , Rfl: atorvastatin (Lipitor) 20 MG tablet, Take 20 mg by mouth in the morning., Disp: , Rfl: azelaic acid (Finacea) 15 % gel, Apply thin layer to the face, once daily, 30 day supply, Disp: 50 g, Rfl: 11 Calcium Carbonate-Vitamin D 600-3.125 MG-MCG tablet, Take 1 tablet by mouth., Disp: , Rfl: cholecalciferol (Vitamin D-3) 50 MCG (2000 UT) capsule, Take 1 capsule by mouth in the morning and 1 capsule in the evening., Disp: , Rfl: diclofenac sodium 1 % gel, Apply 1 application topically., Disp: , Rfl: ferrous sulfate 325 (65 Fe) MG tablet, Take 1 tablet by mouth 5 days weekly as directed Indications: supplement, Disp: , Rfl: fluorouracil (Efudex) 5 % cream, Apply to directed areas on the face twice a day x 14 days. Dispense 30 day supply but only use for 14 days., Disp: 40 g, Rfl: 0 hydroCHLOROthiazide (HYDRODiuril) 25 MG tablet, 1 (one) time each day at the same time., Disp: , Rfl: losartan (Cozaar) 100 MG tablet, TAKE 1 TABLET BY MOUTH EVERY DAY for 90 days, Disp: , Rfl: Social History: Social History Socioeconomic History Marital status: Spouse name: Not on file Number of children: Not on file Years of education: Not on file Highest education level: Not on file Occupational History Not on file Tobacco Use Smoking status: Former Current packs/day: 0.00 Average packs/day: 1 pack/day for 47.6 years (47.6 ttl pk-yrs) Types: Cigarettes Start date: 03/16/1969 Quit date: 10/14/2016 Years since quittin.1 Passive exposure: Past Smokeless tobacco: Never Vaping Use Vaping status: Unknown Substance and Sexual Activity Alcohol use: Yes Alcohol/week: 1.0 standard drink of alcohol Types: 1 Glasses of wine per week Comment: maybe one glass a month,,,, caffeine intake: 1-2 cups per day coffee Drug use: Never Sexual activity: Yes Partners: Male control/protection: Post-menopausal Other Topics Concern Not on file Social History Narrative Not on file Social Drivers of Health Financial Resource Strain: Not on file Food Insecurity: Not on file Transportation Needs: Not on file Physical Activity: Sufficiently Active (02/11/2023) Re[facility] from [facility] Exercise Vital Sign Days of Exercise per Week: 3 days Minutes of Exercise per Session: 60 min Stress: Not on file Social Connections: Not on file Intimate Partner Violence: Not on file Housing Stability: Not on file ROS: GI: denies abdominal pain or ulcerations with anti-inflammatory medication OBJECTIVE LE EXAM: DERM: Elongated thick yellow crumbly nails digits 1 through 10. Positive hair growth b/l feet. Small posterolateral bony prominence to the posterior calcaneal region of the left heel VASC: Positive palpable pedal pulses bilaterally NEURO: Gross sensation intact to bilateral feet ORTHO: Positive pain on palpation to nails 1 through 10 Positive palpation to the left posterior calcaneus near the Achilles tendon insertion with negative palpable [place] Contracture of ankle at tibiotalar joint to bilateral lower extremities ASSESSMENT 1. Left Achilles tendinitis 2. Contracture of left ankle 3. Pain due to onychomycosis of toenails of both feet PLAN Discussed proper foot care with patient today. Debride nails in length and thickness digits 1 through 10 Patient to continue with oral anti - inflammatories as needed for pain and recommended OTC medications such as tylenol or Ibuprofen Patient is to continue with stretching excercizes daily with patient to continue with night stretching splint or manual stretching. Recommended to apply ice to affected areas for 20 minutes, twice daily. Ice should not be applied directly to skin. Patient begin to use walking boot which she currently has and use daily and placed on steroid pack today Juan Yates DPM documented in this encounter [facility] 10-06-2023 Evaluation note Authored October 06, 2023 9: 54am The above note written by __ _Elizabeth Tolbert____ acting as human recorder, note dictated by Dr. Stuart .I performed the above HPI, ROS, and Examination. I formulated and dictated the treatment plan and was present for entire encounter. Roma Pritchard D.O. [facility] Work Phone: [phone]) 928-934005-14-2024 Evaluation note* Author Roma Pritchard [facility] Authored July 07, 2023 10:30 am The above note written by __ _Elizabeth Tolbert____ acting as human recorder, note dictated by Dr. Stuart .I performed the above HPI, ROS, and Examination. I formulated and dictated the treatment plan and was present for entire encounter. Roma Pritchard D.O. [facility] Work Phone: 1(471) 252-571104-03-2024 Hospital Discharge instructions Patient Education 05/27/2023 09:53:52 Kidney Stones, Tzaw-xb-Cfzx Kidney Stones Kidney stones are rock-like masses that form inside of the kidneys. Kidneys are organs that make pee (urine). A kidney stone may move into other parts of the urinary tract, including: The tubes that connect the kidneys to the bladder (ureters). The bladder. The tube that carries urine out of the body (urethra). Kidney stones can cause very bad pain and can block the flow of pee. The stone usually leaves your body (passes) through your pee. You may need to have a doctor take out the stone. What are the causes? Kidney stones may be caused by: A condition in which certain glands make too much parathyroid hormone (primary hyperparathyroidism). A buildup of a type of crystals in the bladder made of a chemical called uric acid. The body makes uric acid when you eat certain foods. Narrowing (stricture) of one or both of the ureters. A kidney blockage that you were born with. Past surgery on the kidney or the ureters, such as gastric bypass surgery. What increases the risk? You are more likely to develop this condition if: You have had a kidney stone in the past. You have a family history of kidney stones. You do not drink enough water. You eat a diet that is high in protein, salt (sodium), or sugar. You are overweight or very overweight (obese). What are the signs or symptoms? Symptoms of a kidney stone may include: Pain in the side of the belly, right below the ribs (flank pain). Pain usually spreads (radiates) to the groin. Needing to pee often or right away (urgently). Pain when going pee (urinating). Blood in your pee (hematuria). Feeling like you may vomit (nauseous). Vomiting. Fever and chills. How is this treated? Treatment depends on the size, location, and makeup of the kidney stones. The stones will often pass out of the body through peeing. You may need to: Drink more fluid to help pass the stone. In some cases, you may be given fluids through an IV tube put into one of your veins at the hospital. Take medicine for pain. Make changes in your diet to help keep kidney stones from coming back. Sometimes, medical procedures are needed to remove a kidney stone. This may involve: A procedure to break up kidney stones using a beam of light (laser) or shock waves. Surgery to remove the kidney stones. Follow these instructions at home: Medicines Take hoep-pkr-bqaylce and prescription medicines only as told by your doctor. Ask your doctor if the medicine prescribed to you requires you to avoid driving or using heavy machinery. Eating and drinking Drink enough fluid to keep your pee pale yellow. You may be told to drink at least 8 10 glasses of water each day. This will help you pass the stone. If told by your doctor, change your diet. This may include: ?Limiting how much salt you eat. ?Eating more fruits and vegetables. ?Limiting how much meat, poultry, fish, and eggs you eat. Follow instructions from your doctor about eating or drinking restrictions. General instructions Collect pee samples as told by your doctor. You may need to collect a pee sample: ?24 hours after a stone comes out. ?8 12 weeks after a stone comes out, and every 6 12 months after that. Strain your pee every time you pee (urinate), for as long as told. Use the strainer that your doctor recommends. Do not throw out the stone. Keep it so that it can be tested by your doctor. Keep all follow-up visits as told by your doctor. This is important. You may need follow-up tests. How is this prevented? To prevent another kidney stone: Drink enough fluid to keep your pee pale yellow. This is the best way to prevent kidney stones. Eat healthy foods. Avoid certain foods as told by your doctor. You may be told to eat less protein. Stay at a healthy weight. Where to find more information National Kidney Foundation (NKF): www.kidney.org Urology Care Foundation (UCF): www.urologyhealth.org Contact a doctor if: You have pain that gets worse or does not get better with medicine. Get help right away if: You have a fever or chills. You get very bad pain. You get new pain in your belly (abdomen). You pass out (faint). You cannot pee. Summary Kidney stones are rock-like masses that form inside of the kidneys. Kidney stones can cause very bad pain and can block the flow of pee. The stones will often pass out of the body through peeing. Drink enough fluid to keep your pee pale yellow. This information is not intended to replace advice given to you by your health care provider. Make sure you discuss any questions you have with your health care provider. Document Revised: 10/14/2021 Document Reviewed: 10/14/2021 [employer] Patient Education 2022 [employer]. Follow Up Care 04/13/2023 08:56:26 With:RITCHIE JONES, MARIANA Johnson, URL [address]: [address] [facility] [place] [address] [phone] When: Unknown Comments:f/u pending CT AP wo con results [facility] 02-08-2024 Evaluation note* Encounter Date Diagnosis Assessment Notes [...] She is going to meet with a nutrition/dieticia n to discuss her diet more. All questions [...] it can raise the blood pressure. Side effects/risks/bene fits of Meloxicam were discussed. Mar, Sleep apnea [...] including the use of non-opiod analgesics and non-pharmacologica l intervention with patient if treated for pain. [...] level is 595. Folate is 15.8. 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 She is going to see a converting supervisor to see if she can learn how [...] was poor and he was in the [place]. She would prefer to stay around 141 pounds which is fine. She does resistance training, walks and is running on her treadmill now. Mar, Kidney stone (ICD-10 - N20.0) She voices that she recently saw Mariana Duong PA-C at [facility] for evaluation and was told she [...] is to ask Mariana Duong PA-C at [facility] if she should be taking a [...] She should look into the Mediterranean Diet. [employer] Other 01-15-2024 Evaluation note* Encounter Date Diagnosis Assessment Notes Treatment Notes Treatment Clinical Notes Feb, Obstructive sleep apnea (ICD-10 - G47.33) Fortunately, the patient is using and benefiting from treatment. Download was reviewed with patient, Current pressure is controlling apnea well, And we will make no changes at this time. A prescription was sent to the [employer] for new supplies throughout the year. She [...] sleepiness, or poor response to treatment. . [employer] Other 01-10-2024 Evaluation note* Encounter Date Diagnosis Assessment Notes Treatment Notes Treatment Clinical Notes Feb, Rotator cuff syndrome, right (ICD-10 - M75.101) [employer] Other 01-09-2024 Evaluation note* Encounter Date Diagnosis [...] pain of right shoulder (ICD-10 - M25.511) [employer] Other 11-14-2023 Hospital Discharge instructions Patient Education [...] include: ?8 oz (237 mL) of milk, asymnvf-hhaiaazwmrny-lotqf milk, and calcium- fortifiedfruit juice. Calcium-fortified means [...] ?Spinach (cooked), rhubarb, beets, sweet potatoes, and Burkinan chard. ?Peanuts. ?Potato chips, yakut fries, and baked potatoes with skin on. ?Nuts and nut products. ?Chocolate. If you regularly take a diuretic medicine, make sure to eat at least 1 or 2 servings of fruits or vegetables that are high in potassium each day. These include: ?Avocado. ?Banana. ?[place]endricks, prune, carrot, or tomato juice. ?Baked potato. [...] magnesium, fish oil, or vitamin B6. Take nikh-sxc-cmxiwlw and prescription medicines only as told by [...] Casseroles. Pizza. Lasagna. Frozen meals. Potato chips. Slovenian fries. The items listed above may not [...] provider. Document Revised: 10/21/2021 Document Reviewed: 10/21/2021 [employer] Patient Education 2022 [employer]. Follow Up Care 01/02/2022 10:12:49 With:MARIANA DUONG PA-C, URL Address: [address] [place] [place] [address] When: Unknown [facility] 11-08-2023 Evaluation note* Encounter Date Diagnosis Assessment Notes Treatment Notes Treatment Clinical Notes Dec, Anxiety (ICD-10 - F41.9) [employer] Other 11-08-2023 Evaluation note* Encounter Date Diagnosis [...] hip replacement. 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 Continue taking eyev-oio-lzgdzpe anti-inflammatorie s as needed for assistance with swelling and pain associated with the operative extremity. Follow-up at 1 year postop for repeat examination and repeat x-rays. Patient will call with any questions or concerns. 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 [employer] Other 09-01-2023 Evaluation note* Encounter Date Diagnosis [...] patient could proceed with surgery safely. The manager surgery was vital for surgery timing and scheduling [...] plans. Prolonged services time spent: 31 minutes [employer] Other 08-31-2023 Evaluation note* Encounter Date Diagnosis Assessment Notes Treatment Notes Treatment Clinical Notes Sep, Primary osteoarthritis of right hip (ICD-10 - M16.11) Sep, Other 1. Right ABBY Home Medications - DVT prophylaxis: Aspirin - NSAID: Celebrex - Disposition: Same-day discharge-her and her daughters will be there to help her postop Joints Meeting Checklist - Pharmacy: [facility] to bed - Approach/Technique: anterior, Abrams bed - Implants: Avenir Complete/G7; - Anesthesia: general versus spinal - Blocks: Fascia iliaca - Preop Antibiotics: Ancef - TXA: yes-systemic - Positioning/OR Bed: supine on Abrams bed - Intraop X-ray: yes - Maxwell: [...] elected to proceed with the above surgery. [employer] Other 08-08-2023 Evaluation note* Encounter Date Diagnosis Assessment Notes Treatment Notes Treatment Clinical Notes Sep, Anxiety (ICD-10 - F41.9) [employer] Other 07-28-2023 Evaluation note* Encounter Date Diagnosis Assessment Notes Treatment Notes Treatment Clinical Notes Aug, Primary osteoarthritis of right hip (ICD-10 - M16.11) [employer] Other 07-27-2023 Evaluation note* Encounter Date Diagnosis Assessment Notes Treatment Notes Treatment Clinical Notes Aug, Primary osteoarthritis of right hip (ICD-10 - M16.11) [employer] Other 05-04-2023 Evaluation note* Encounter Date Diagnosis [...] June, Other 9:25 AM - 9:31 AM [employer] Other 04-20-2023 Evaluation note* Encounter Date Diagnosis Assessment Notes Treatment Notes Treatment Clinical Notes May, Hyperlipidemia (ICD-10 - E78.5) [employer] Other 02-13-2023 Evaluation note* Encounter Date Diagnosis Assessment Notes Treatment Notes Treatment Clinical Notes Mar, Cervical pain (ICD-10 - M54.2) Mar, Dysphagia (ICD-10 - R13.10) [employer] Other 02-08-2023 Evaluation note* Encounter Date Diagnosis [...] abnormalities that would impede her swallowing. 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 Right now she [...] is an interaction with her other medications. [employer] Other 01-19-2023 Evaluation note* Encounter Date Diagnosis Assessment Notes Treatment Notes Treatment Clinical Notes Feb, Anxiety (ICD-10 - F41.9) [employer] Other 01-11-2023 Evaluation note* Encounter Date Diagnosis [...] stored elsewhere. 6. Follow up as needed [employer] Other 01-03-2023 Evaluation note* Encounter Date Diagnosis Assessment Notes Treatment Notes Treatment Clinical Notes Feb, Obstructive sleep apnea (ICD-10 - G47.33) Fortunately, the patient is using and benefiting from treatment. Download was reviewed with patient, Current pressure is controlling apnea well, And we will make no changes at this time. I did send an order for a mask fitting with recommendations to try [employer] Discovery Gel Pillows Cushion per patient request. A prescription was sent to the [employer] for new supplies throughout the year. She [...] sleepiness, or poor response to treatment. . [employer] Other 11-29-2022 Evaluation note* Encounter Date Diagnosis Assessment Notes Treatment Notes Treatment Clinical Notes Dec, Anxiety (ICD-10 - F41.9) [employer] Other 11-16-2022 Evaluation note* Encounter Date Diagnosis Assessment Notes Treatment Notes Treatment Clinical Notes Dec, Pulmonary nodules (ICD-10 - R91.8) [employer] Other 11-08-2022 Evaluation note* Encounter Date Diagnosis [...] and wore disposable gloves and a mask. [employer] Other 10-12-2022 Evaluation note* Encounter Date Diagnosis Assessment Notes Treatment Notes Treatment Clinical Notes Nov, Anxiety (ICD-10 - F41.9) [employer] Other 08-29-2022 Evaluation note* Encounter Date Diagnosis Assessment Notes Treatment Notes Treatment Clinical Notes Sep, Anxiety (ICD-10 - F41.9) Sep, GERD (gastroesophageal reflux disease) (ICD-10 - K21.9) [employer] Other 08-26-2022 NotePROCEDURE: XR FOOT RT MIN [...] Electronically authenticated by: PAIGE CLAYTON Date: 2021-10-18 10:16[facility]08-19-2022 Evaluation note* Encounter Date Diagnosis Assessment Notes Treatment Notes Treatment Clinical Notes Sep, Anxiety (ICD-10 - F41.9) [employer] Other 08-10-2022 Evaluation note* Encounter Date Diagnosis Assessment Notes Treatment Notes Treatment Clinical Notes Sep, Anxiety (ICD-10 - F41.9) [employer] Other 08-10-2022 Evaluation note* Encounter Date Diagnosis [...] Weight loss (ICD-10 - R63.4) Sep, Other salvage determiner (current) drug therapy (ICD-10 - Z79.899) Sep, [...] broken foot. She will continue to monitor. [employer] Other 07-29-2022 NotePROCEDURE: XR FOOT RT MIN [...] authenticated by: PAIGE CLAYTON Date: 2021-09-20 08:10[id number] NotePROCEDURE: XR FOOT RT MIN 3 VIEWS [...] authenticated by: PAIGE CLAYTON Date: 2021-08-30 09:32[facility]06-20-2022 Evaluation note* Encounter Date Diagnosis Assessment Notes Treatment Notes Treatment Clinical Notes Jul, Anxiety (ICD-10 - F41.9) Jul, Essential hypertension (ICD-10 - I10) [employer] Other 06-16-2022 NotePROCEDURE: XR FOOT RT MIN [...] Electronically authenticated by: PAIGE CLAYTON Date: 2021-08-08 17:31[facility]06-16-2022 Evaluation note* Encounter Date Diagnosis Assessment Notes Treatment Notes Treatment Clinical Notes Jul, Foot pain, right (ICD-10 - M79.671) [employer] Other 05-04-2022 Evaluation note* Encounter Date Diagnosis [...] (ICD-10 - I10) She voices that her [facility] nurse contacts her monthly and suggested [...] should continue with this. She voiced understanding. [employer] Other 04-26-2022 Evaluation note* Encounter Date Diagnosis Assessment Notes Treatment Notes Treatment Clinical Notes May, Anxiety (ICD-10 - F41.9) [employer] Other 03-15-2022 Evaluation note* Encounter Date Diagnosis Assessment Notes Treatment Notes Treatment Clinical Notes Apr, Obstructive sleep apnea (ICD-10 - G47.33) Fortunately, the patient is using and benefiting from treatment. Download was reviewed with patient, Current pressure is controlling apnea well, And we will make no changes at this time. A prescription was sent to the [employer] for new supplies throughout the year. She [...] sleepiness, or poor response to treatment. . [employer] Other 03-02-2022 Evaluation note* Encounter Date Diagnosis Assessment Notes Treatment Notes Treatment Clinical Notes Apr, Osteopenia (ICD-10 - M85.80) [employer] Other 02-25-2022 Evaluation note* Encounter Date Diagnosis Assessment Notes Treatment Notes Treatment Clinical Notes Mar, Trigger finger, right ring finger (ICD-10 - M65.341) Right ring trigger finger injected with cortisone under sterile technique, patient tolerated well Mar, Right hand pain (ICD-10 - M79.641) [employer] Other 01-28-2022 Evaluation note* Encounter Date Diagnosis [...] last DEXA scan was in 2019. 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 [employer] Other 10-26-2021 Evaluation note* Encounter Date Diagnosis [...] did recommend that she avoid doing planks. [facility] [employer] Other Evaluation + Plan note Future Appointments Appointment Date:01/12/2024 08:30:00 AM Scheduled Provider:MARIANA DUONG PA-C Location:[facility] Appointment Type:URO Office Visit [facility] evaluation + Plan note Future Appointments Appointment Date:01/12/2024 08:40:00 AM Scheduled Provider:MARIANA DUONG PA-C Location:[facility] Appointment Type:URO Office Visit [facility] Evaluation noteNo InformationNortSub[facility] [employer] Other evaluation noteNodeaconess incarnate word [facility] [employer] Other evaluation noteNo assessment information available [facility] Work Phone: Evaluation note* Diagnosis Onset Date Resolution Status Bicipital tendinitis, right shoulder acute Rotator cuff syndrome of right shoulder acute [facility] Work Phone: Evaluation note* Diagnosis Onset Date Resolution Status Anemia acute Anxiety acute HTN (hypertension) acute Hyperglycemia acute Hyperlipidemia acute Pulmonary nodule acute Sleep apnea treated with con tinuous positive airway pressure (CPAP) acute Vitamin B12 deficiency acute Vitamin D deficiency acute [facility] Work Phone: Evaluation note* Diagnosis Left Achilles tendinitis- Primary Contracture of left ankle Pain due to onychomycosis of toenails of both feet documented in this encounter [facility] - Reported* Type Description Date Medical History Hypertension Medical History Esophageal reflux Medical History bladder trouble Medical History generalized anxiety (takes med t wice per month) Surgical History Right Breast Biopsy (benign) 's Surgical History Tubal Ligation 1978 Surgical History cystocopy; Dr. Guadalupe Surgical History colonoscopy - Dr Casiano 09/2015 Surgical History eye lid surgery Dr Collin arevalo 01/08/17 Hospitalization History Vaginal 77 & 79 [employer] Other [employer] general Narrative - ReportedNoolook Other [employer] general Narrative - Reported* Type Description Date [...] 01/08/17 Hospitalization History Vaginal 77 & 79 [employer] Other [facility] general Narrative - Reported* Type Description Date [...] 01/08/17 Hospitalization History Vaginal 77 & 79 [employer] Other [facility] general Narrative - Reported* Type Description Date [...] 11/04/22 Hospitalization History Vaginal 77 & 79 [employer] Other Hospital course Narrative No data available for this section [facility] No data available for this section [facility] Shireen reason for visit Narrativereview lab, discuss multiple issues see treatment plan for further informationNoRepairPal [employer] Other Reason for visit Narrativereview labs/med refill, discuss multiple issues, see treatment plan for further informationNoRepairPal [employer] Other Summary Purpose Family History No Family [...] stent placement Unknown brother Malignant neoplasm Unknown Relationship Condition Age at Onset Recorded Date/T casi Not Specified Malignant neoplasm of ovary Unknown father Diabetes mellitus Unknown Myocardial infarction Unknown brother History of coronary artery stent placement Unknown brother Malignant neoplasm Unknown father Unknown Heart disease Unknown Diabetes mellitus Unknown grandparent Unknown Not Specified History of ovarian cancer Unknown Unknown Malignant neoplasm Unknown Relationship Condition Age at Onset Recorded Date/T casi mother Malignant neoplasm of ovary Unknown father Diabetes mellitus Unknown Myocardial infarction Unknown brother History of coronary artery stent placement Unknown brother Malignant neoplasm Unknown father Unknown Heart disease Unknown Diabetes mellitus Unknown grandparent Unknown mother History of ovarian cancer Unknown Unknown Malignant neoplasm Unknown Advance Directives No Advanced [...] Date/ Time Advance Directives Yes December 1:47pm Advance Directive Response Recorded Date/ Time Advance Directives Yes December 2:47pm Chief Complaint and Reason for Visit Chief [...] Rt Shoulder Pain Nx M25.511 Annual g47.33 Chief Complaint New Rt Shoulder Pain Nx M25.511 Annual g47.33 e78.5 6-8 WK RECHECK m85.871 Reason for Visit Bicipital tendinitis , right shoulder Rotator cuff syndrome of right shoulder Chief Complaint e78.5 6-8 WK RECHECK m85.871 n20.0 Reason for Visit Bicipital tendinitis , right shoulder Rotator cuff syndrome of right shoulder Chief Complaint med refill R73.9;D64.9;E78.5;E55.9;E53.8;Z79.899 Reason for Visit Anxiety Diaphoresis HTN (hypertension) Osteopenia Pulmonary nodule Chief Complaint R73.9;D64.9;E78.5;E5 5.9;E53.8;Z79.899 review labs/med refill Reason for Visit Anemia Anxiety HTN (hypertension) Hyperglycemia Hyperlipidemia Pulmonary nodule Sleep apnea treated with continuous positive airway pressure (CPAP) Vitamin B12 deficiency Vitamin D deficiency Chief Complaint R73.9;D64.9;E78.5;E5 5.9;E53.8;Z79.899 review labs/med refill R91.1 Reason for Visit Anemia Anxiety HTN (hypertension) Hyperglycemia Hyperlipidemia Pulmonary nodule Sleep apnea treated with continuous positive airway pressure (CPAP) Vitamin B12 deficiency Vitamin D deficiency Chief Complaint R73.9;D64.9;E78.5;E5 5.9;E53.8;Z79.899 review labs/med refill R91.1 flu shot Reason for Visit Anemia Anxiety HTN (hypertension) Hyperglycemia Hyperlipidemia Pulmonary nodule Sleep apnea treated with continuous positive airway pressure (CPAP) Vitamin B12 deficiency Vitamin D deficiency Chief Complaint R73.9;D64.9;E78.5;E5 5.9;E53.8;Z79.899 review labs/med refill R91.1 flu shot Reason for Visit Anemia Anxiety HTN (hypertension) Hyperglycemia Hyperlipidemia Pulmonary nodule Sleep apnea treated with continuous positive airway pressure (CPAP) Vitamin B12 deficiency Vitamin D deficiency Flu vaccine need Additional Source Comments INFORMATION SOURCE (unrecogn ized section and content) DATE CREATED AUTHOR 08/04/2018 [facility] DATE CREATED AUTHOR AUTHOR'S ORGANIZ ATION 05/05/2020 [facility] DATE CREATED AUTHOR AUTHOR'S ORGANIZ ATION 05/31/2022 [facility] DATE CREATED AUTHOR AUTHOR'S ORGANIZ ATION 10/09/2023 [facility] DATE CREATED AUTHOR AUTHOR'S ORGANIZ ATION 11/21/2023 [facility] DATE CREATED AUTHOR AUTHOR'S ORGANIZ ATION 12/18/2023 [facility] EPIC REASON FOR VISIT (unrecogniz ed section and content) Reason Comments Toenail Care Non DM Nails Care Teams (unrecognized sec tion and content) Team Status: Inactive Member Role Status Dates Roma Pritchard DO Primary Care Provider, Attending Pro vider Active Team Status: Active Member Role Status Dates Roma Pritchard DO Primary Care Provider Active Team Status: Inactive Member Role Status Dates Roma Pritchard DO Primary Care Provider Active Tanna Wilson [...] Pritchard DO Primary Care Provider Active Colby A Deena , DO Attending Provider Active Team Status: [...] March 25, 2023 End: March 25, 2023 Team Status: Inactive Member Role Status Onel Pritchard DO Primary Care Provider Active S tart: April 27, 2023 End: April 27, 2023 Colby Shaffer DO Attending Provider Active St art: April 27, 2023 End: April 27, 2023 Team Status: Inactive Member Role Status Onel Pritchard DO Primary Care Provide r, Attending Provider Active Start: May 27, 2023 End: May 27, 2023 Team Status: Inactive Member Role Status Onel Pritchard DO Primary Care Provider Active S tart: June 11, 2023 End: June 11, 2023 Mariana Duong PA-C Attending Provider Active Start: June 11, 2023 End: June 11, 2023 Team Status: Inactive Member Role Status Dates Roma Pritchard DO Primary Care Provide r, Attending Provider Active Start: July 07, 2023 End: July 07, 2023 Team Status: Inactive Member Role Status Dates Roma Pritchard DO Primary Care Provide r, Attending Provider Active Start: October 01, 2023 End: October 01, 2023 Team Status: Inactive Member Role Status Dates Roma Pritchard , DO Primary Care Provide r, Attending Provider Active Start: October 06, 2023 End: October 06, 2023 Team Status: Inactive Member Role Status Dates Roma Pritchard , DO Primary Care Provide r, Attending Provider Active Start: October 22, 2023 End: October 22, 2023 Team Status: Inactive Member Role Status Dates Roma Pritchard DO Primary Care Provide r, Attending Provider Active Start: November 16, 2023 End: November 16, 2023 Pharmaceutical Plant Operator Relationship Specialty Start Date End Date Roma Pritchard MD [address] [place] [address] PCP - General Family Medicine 01/01/23 Pharmaceutical Plant Operator Relationship Specialty Start Date End Date Roma Pritchard MD [address] [place] [address] PCP - General Family Medicine 01/01/23 Goals (unrecognized section and content) Goals may [...] BE BASED ON THE PRIMARY CLINICAL RECORDS. [facility]. provides no warranty or guarantee of the accuracy or completeness of information in this document.
== END 2023-12-25 08:06 | disposition home or self-care (01) ==
LOC: RAD 08:06
PROVIDERS: PCP Family Medicine; Visit Provider Physician Assistant
DX: N20.0 Calculus of kidney (principal)
CPT/HCPCS: 74018

== ENCOUNTER 2024-01-05 09:48 | Outpatient (RCR) | payer MEDICARE, BC, SELFPAY | END 2024-02-03 08:25 | disposition home or self-care (01) | LOC: PT 09:48 | PROVIDERS: PCP Family Medicine | DX: M24.572 Contracture, left ankle (principal); R26.2 Difficulty in walking, not elsewhere classified | CPT/HCPCS: 97035; 97110; 97112; 97140; 97162; G0283 ==

== ENCOUNTER 2024-03-02 07:20 | Outpatient (RCR) | payer MEDICARE, BC, SELFPAY | END 2024-05-21 07:21 | disposition home or self-care (01) | LOC: PT 07:20 | PROVIDERS: PCP Family Medicine | DX: M76.62 Achilles tendinitis, left leg (principal) | CPT/HCPCS: 97033; 97110; 97140; 97162 ==

== ENCOUNTER 2024-09-07 08:57 | Outpatient (OUT) | payer MEDICARE, BC, SELFPAY ==
--- OUTSIDE RECORDS SUMMARY | 2023-07-28 09:00 | XMS_ITS ---
Author Organization [facility] in [place] Address [address] [place] [address] Care Team Providers Care Director [employer] Name Role Phone Cachorro Stevens DO Primary Care Provider Unavailab Melly Aguilera Unavailable [phone] Allergies No Known Allergies Results Component Value Reference Range Notes XR Foot LT (3 views) * Reviewed date:08/04/2023 08:18:16 AM Interpretation: Performing Lab: Notes/Report: REASON FOR VISIT Left heel pain Medications Medication SIG (Take, Route, Frequency, Duration) Notes Start Date End Date Status Azelaic Acid 15 % apply thin layer to face once daily External for 30 Days Active buPROPion HCl ER (SR) 100 MG TAKE 1 TABL ET BY MOUTH IN THE MORNING Oral for 30 Days Active buPROPion HCl ER (SR) 100 MG Oral for 90 Days Active Meloxicam 15 MG TAKE 1 TABLET BY LORIE TH EVERY DAY FOR 30 DAYS Oral for 30 Days Active Fluorouracil 5 % APPLY TOPICALLY TO AREAS ON THE FACE TWICE DAILY DIRECTED FOR 14 DAYS External for 30 Days Active ALPRAZolam 0.5 MG Oral for 30 Days Active hydroCHLOROthiazide 25 MG Oral for 90 Days Active Losartan Potassium 100 MG Oral for 90 Days Active Atorvastatin Calcium 20 MG Oral for 90 Days Active Social History Tobacco Use: Social History Observation Description Date Details (start date - stop date) Never Smoker NA - NA Tobacco Control (Standard) Question Answer Notes Tobacco use: Nonsmoker Vital Signs Weight 150 lbs 07/28/2023 Height 61 in 07/28/2023 Temperature 98.8 degrees Fahrenheit 07/28/19 24 Heart Rate 90 /min 07/28/2023 BMI 28.34 kg/m2 07/28/2023 Oximetry 97 % 07/28/2023 Encounters Encounter Location Date Provider Diagnosis [facility] (PODIATRY) [address] [place] [address] [place] [address] 07/28/2023 Melly Tolbert Contracture of muscle, left lower leg M62.462 ; Achilles tendinitis, left leg M76.62 ; Plantar fascial fibromatosis M72.2 and Left foot pain M79.672 Assessments Encounter Date Diagnosis (ICD Code) Assessment Notes Treatment Notes Treatment Clinical Notes Section Notes 07/28/2023 Contracture of muscle, left lower leg (ICD-10 - M62.462) The patient is a 67 year old female who has seen us before, who presents with complaints of left posterior and medial heel pain x 3 days. The pain has resolved. She states the pain started while playing [employer] for the first time ever. She did not stretch prior to playing. She began experiencing heel pain and stopped playing. She spent 3 days icing, elevating, and resting. She denies pain today. Xrays show no trauma or stress farcture. She does admit to history of intermittent plantar fasciitis symptoms. I recommend she perform regular calf strecthes to prevent recurrence of pain. She should followup if pain does return. She is happy with the plan. 07/28/2023 Achilles tendinitis, left leg (ICD-10 - M76.62) 07/28/2023 Plantar fascial fibromatosis (ICD-10 - M72.2) 07/28/2023 Left foot pain (ICD-10 - M79.672) Plan Of Treatment Treatment Notes Assessment Notes Contracture of muscle, left lower leg The patient is a 67 year old female who has seen us before, who presents with complaints of left posterior and medial heel pain x 3 days. The pain has resolved. She states the pain started while playing [employer] for the first time ever. She did not stretch prior to playing. She began experiencing heel pain and stopped playing. She spent 3 days icing, elevating, and resting. She denies pain today. Xrays show no trauma or stress farcture. She does admit to history of intermittent plantar fasciitis symptoms. I recommend she perform regular calf strecthes to prevent recurrence of pain. She should followup if pain does return. She is happy with the plan. Next Appt Details Follow Up: prn, Reason: Progress Notes * Eliud GONSALESOB: [birth year] (67 yo F)Acc No.[id number]:07/28/2023 Follow Up Patient: Teagan IBARRA Provider: Chucky Tolbert PA-C :1955 A ge:67 Y S ex:Female Date:07/28/2023 Address:[facility] [place] [place], [place], [id number] Pcp:Cachorro Stevens, DO Check In:12:57 PM ESTCheck O ut:01:27 PM EST Subjective: * Chief Complaints: * L eft heel pain * HPI: G eneral: last week she was playing [employer] ball and she was trying it out. She did play in [employer]. She did do a lot of walking. When she got home she could not flex down to walk. The pain is the back of her heel on her left foot. She iced and elavated all weekend. She is doing better but she is still concered that why did this happen does work out and she stretches daily. * ROS: G eneral/Constitutional: Chills d enies. F ever d enies. W eight gain�denies. W eight loss d enies. S kin: Skin Ulcers d enies. S kin lesion(s) d enies. � C ardiovascular: Difficulty breathing on exertion d enies. L eg cramps�denies. E sarah d enies. C hest pain d enies. R espiratory: Difficulty breathing d enies. D yspnea d enies.�Cough d enies. G astrointestinal: Diarrhea d enies. N ausea d enies. V omiting�denies. M usculoskeletal: Bone/Joint Symptoms d enies. C long term Pain d enies.�Leg cramps d enies. N eurologic: Numbness d enies. T ingling d enies . G ait abnormality d enies. � H ematology: Anemia D enies. E asy bruising d enies. � A ll Other Systems: Review of Systems (ROS) S HPI for details,All others negative except those mentioned in HPI. * Active Problem List �����Problem List has not been verified* Medical History: * Surgical History: D enies Past Surgical History * Hospitalization/Major Diagno stic Procedure: D enies Past Hospitalization * Family History: N on-Contributory. * Social History: T obacco Use: T obacco Control (Standard) T obacco use: N onsmoker * Medications: T akingALPRAZolam 0.5 MG Tablet Oral Atorvastatin Calcium 20 MG Tablet Oral Azelaic Acid 15 % Gel apply thin layer to face once daily External buPROPion HCl ER (SR) 100 MG Tablet Extended Release 12 Hour Oral buPROPion HCl ER (SR) 100 MG Tablet Extended Release 12 Hour TAKE 1 TABLET BY MOUTH IN THE MORNING Oral Fluorouracil 5 % Cream APPLY TOPICALLY TO AREAS ON THE FACE TWICE DAILY DIRECTED FOR 14 DAYS External hydroCHLOROthiazide 25 MG Tablet Oral Losartan Potassium 100 MG Tablet Oral Meloxicam 15 MG Tablet TAKE 1 TABLET BY MOUTH EVERY DAY FOR 30 DAYS Oral Medication List reviewed and reconciled with the patientTaking ALPRAZolam 0.5 MG Tablet Oral Taking Atorvastatin Calcium 20 MG Tablet Oral Taking Azelaic Acid 15 % Gel apply thin layer to face once daily External Taking buPROPion HCl ER (SR) 100 MG Tablet Extended Release 12 Hour Oral Taking buPROPion HCl ER (SR) 100 MG Tablet Extended Release 12 Hour TAKE 1 TABLET BY MOUTH IN THE MORNING Oral Taking Fluorouracil 5 % Cream APPLY TOPICALLY TO AREAS ON THE FACE TWICE DAILY DIRECTED FOR 14 DAYS External Taking hydroCHLOROthiazide 25 MG Tablet Oral Taking Losartan Potassium 100 MG Tablet Oral Taking Meloxicam 15 MG Tablet TAKE 1 TABLET BY MOUTH EVERY DAY FOR 30 DAYS Oral Medication List reviewed and reconciled with the patient * Allergies: N .K.D.A. Objective: * Vitals: W t:150lbs, Ht: 61 in, Temp:98.8F, HR:90/min, BMI:28.34Index, Pain scale:01-10, Oxygen sat %:97%, Ht-cm: 154.94 cm, Wt-k.04 kg. * Examination: P odiatry Examination: SKIN: s kin intact, n o sign of infection. MUSCULOSKELETAL: N o pain on palpation. No pain with calcaneal squeeze, Ankle joint dorsiflexion is to neutral but not past Muscle strength is 5/5 in all planes. NEUROLOGICAL: L ight touch sensation is intact in allnerve distributions, N egative Tinel sign. VASCULAR: P alpable pedal pulses bilaterally, No calf pain on squeeze. X -ray 3 view foot obtained in the office today and reviewed: No evidence of acute trauma or stress fracture. Retrocalcaneal spur noted. No evidence of aggressive osseous lesion identified. Assessment: * Assessment: 1. C ontracture of muscle, left lower leg - M62.462 (Primary) 2 . A chilles tendinitis, left leg - M76.62 3 . P lantar fascial fibromatosis - M72.2 4 . L eft foot pain - M79.672 Plan: * Treatment: 2. L eft foot pain I maging: XR Foot LT (3 views) * (Performed Date - 07/28/2023) * Procedure Codes: * Preventive Medicine: Screenings/Counseling: B [place] ACTION PLAN Above Normal BMI Follow-up D ietary management education, guidance, and counseling * Follow Up: p rn * * Sign off status: Completed Visit Status: C HK (Check Out) true * Provider: Chucky Tolbert PA-C Date: 0 07/28/2023 Generated for Rc agarwal/Darius/eTransmitting on: 0 09/07/2024 09:03 AM EDT History and Physical Notes * Examination Category Sub-Category Detail Notes Category Not es Podiatry Examination SKIN: skin intact, no sign of infection X-ray 3 view foot obtained in the office today and reviewed: No evidence of acute trauma or stress fracture. Retrocalcaneal spur noted. No evidence of aggressive osseous lesion identified MUSCULOSKELETAL: No pain on palpation . No pain with calcaneal squeeze, Ankle joint dorsiflexion is to neutral but not past Muscle strength is 5/5 in all planes NEUROLOGICAL: Light touch sensation is intact in all nerve distributions, Negative Tinel sign VASCULAR: Palpable pedal pulse s bilaterally, No calf pain on squeeze
--- OUTSIDE RECORDS SUMMARY | 2024-09-07 09:03 | XMS_ITS | Clinical Summary ---
Author Organization [facility] Address [address] [place] [address] Care Team Providers Care Safe And Vault Service Mechanic Name Role Phone ErmaCachorro walker Micah KISER Primary Care Provider [phone] Family History Medical History Relation Comments Breast Cancer Maternal Aunt dx 60s Pancreatic cancer [Other] Maternal Aunt Prostate Cancer Maternal Uncle dx 70s Ovarian cancer Mother papillary serous cyst adenocarcinoma, right ovary, well differentiated Relation Status Comments Maternal Aunt Maternal Uncle Mother Social History Tobacco Use Types Packs/Day Years Used Date Smoking Tobacco: Former Cigarettes 1 55.5 S tarted: 02/23/1969 Alcohol Use Standard Drinks/Week Comments Yes 0 (1 standard drink = 0.6 oz pur e alcohol) 3 alcoholic beverages per week Comments Unknown Sex and Gender Information Value Date Recorded Sex Assigned at Not on file Legal Sex Female 2:37 PM EDT Gender Identity Not on file Sexual Orientation Not on file Plan of Treatment Health Maintenance Due Date Last Done Comments Anxiety Screening 1974 Depression Screening 1974 Hepatitis C Screening 1974 DTaP,Tdap,Td Vaccine (1 - Tdap) 09/13/[address] Colonography 2001 Cologuard (FIT-DNA) 2001 Colonoscopy 2001 Colorectal Cancer Screening 2001 Diabetes Screening 2001 Fecal Occult Blood 2001 Lipid Screening 2001 Sigmoidoscopy 2001 Pneumococcal Vaccine: 50+ (1 of 1 - PCV) 2006 Shingrix Vaccine (1 of 2) 2006 Bone Density Screening 2021 Covid-19 Vaccine ( - season) 2023 Advance Directive Discussion 02/24/2024 Influenza Vaccine (#1) 2024 RSV Vaccine (1 - 1-dose 75+ series) 09/13/2031 Insurance [facility] PPO Care Teams Safe And Vault Service Mechanic Relationship Specialty Start Date End Date Cachorro Stevens DO [address] [place] [address] PCP - General Family Medicine 12/27/12
--- OUTSIDE RECORDS SUMMARY | 2024-09-07 09:03 | XMS_ITS | Clinical Summary ---
Author Organization [facility] Address [address] [place] [address] Care Team Providers Care Corporate Giving Manager Name Role Phone Cachorro Stevens MD Primary Care Provider [phone] Allergies No known active allergies Medications hydroCHLOROthia zide (HYDRODiuril) 25 MG tablet 1 (one) time each day at the same time. Active ascorbic acid (Vitamin C) 500 MG tablet Take 500 mg by mouth. Active atorvastatin (Lipitor) 20 MG tablet Take 20 mg by mouth in the morning. 3 Active Calcium Carbonate-Vitam in D 600-3.125 MG-MCG tablet Take 1 tablet by mouth. Active cholecalciferol (Vitamin D-3) 50 MCG (2000 UT) capsule Take 1 capsule by mouth in the morning and 1 capsule in the evening. Active diclofenac sodium 1 % gel Apply 1 application topically. Active ferrous sulfate 325 (65 Fe) MG tablet Take 1 tablet by mouth 5 days weekly as directed Indications: supplement Active losartan (Cozaar) 100 MG tablet TAKE 1 TABLET BY MOUTH EVERY DAY for 90 days Active ALPRAZolam (Xanax) 0.5 MG tablet Take 0.5 mg by mouth in the morning and 0.5 mg before bedtime. 3 Active fluorouracil (Efudex) 5 % creamIndication s:Actinic keratosis Apply to directed areas on the face twice a day x 14 days. Dispense 30 day supply but only use for 14 days. 40 g 4 Active methylPREDNISol one (Medrol Dospak) 4 MG tabletsIndicati ons:Left Achilles tendinitis Follow schedule on MEDROL PACK package instructions to be used as directed 21 tablet 4 Active meloxicam (Mobic) 15 MG tablet Take 15 mg by mouth Daily Active Methylcobalamin 1 MG chewable tablet .COMPLEX 4 Active azelaic acid (Finacea) 15 % gelIndications: Other rosacea Apply (1g) thin layer to the face, once daily, 30 day supply 50 g 11 5 Active hydrocortisone 2.5 % creamIndication s:Other seborrheic dermatitis Apply (1g) thin layer to affected areas bid prn for flares 60 g 5 Active Active Problems No known active problems Encounters Date Type Department Care Team Description 08/04/2024 8:40 AM EDT Procedure Visit [facility] [address] [facility] [address] [place] [address] Juan Yates DPM Left Achilles tendinitis (Primary Dx); Pain due to onychomycosis of toenails of both feet; Contracture of left ankle 08/04/2024 Bamboo flowsheet [facility] [address] [facility] [address] [place] [address] Juan Yates DPM 08/04/2024 Travel from Last 3 Months Family History Medical History Relation Name Comments Cancer Brother 1 Erwin Jarquin Heart failure Brother 2 Rolando Jarquin Diabetes Father Diabetes Maternal Grandmother Jelly Flynn Cancer Mother Yumiko Jarquin Ovarian cancer Mother Yumiko Jarquin Breast cancer Mother's Sister 1 Keya Garner Rashes / Skin problems Mother's Sister 2 Cipriano pedraza Bone cancer Sibling Lung cancer Sibling Relation Name Status Comments Brother 1 Erwin Jarquin Brother 2 Rolando Jarquin Father Maternal Grandmother Jelly Flynn Mother Yumiko Jarquin Mother's Sister 1 Keya Evenoff Mother's Sister 2 Cipriano Reedery Sibling Alive Social History Tobacco Use Types Packs/Day Years Used Date Smoking Tobacco: Former Cigarettes 1 47.6 0 03/16/1969 - 10/14/2016 Passive Smoke Exposure: Past Smokeless Tobacco: Never Tobacco Cessation:Counseling Given: Yes Alcohol Use Standard Drinks/Week Comments Yes 1 (1 standard drink = 0.6 oz pure alcohol) maybe one glass a month,,,, caffeine intake: 1-2 cups per day coffee PHQ-2 Answer Date Recorded Patient Health Questionnaire-2 Score 0 01/01/2023 Comments No Sex and Gender Information Value Date Recorded Sex Assigned at Female 12/26/2022 5:44 AM EDT Legal Sex Female 6:52 PM EDT Gender Identity Female 05/07/2022 6:52 PM EDT Sexual Orientation Not on file Last Filed Vital Signs Vital Sign Reading Time Taken Comments Blood Pressure 130/80 01/07/2024 10:26 AM EST Pulse 82 12/31/2023 11:21 AM EST Temperature - - Respiratory Rate 16 08/04/2024 8:35 AM EDT Oxygen Saturation - - Inhaled Oxygen Concentration - - Weight 67.6 kg (149 lb) 08/04/2024 8:35 AM EDT Height 154.9 cm (5' 1 ) 08/04/2024 8:35 AM EDT Body Mass Index 28.15 08/04/2024 8:35 AM EDT Plan of Treatment Upcoming Encounters Date Type Department Care Team (Late st Contact Info) Description 10/20/2024 4:10 PM EDT Procedure Visit [facility] [address] [facility] [address] [place] [address] Juan Yates DPM [address] [facility] [address] [place] [address] 01/10/2025 10:00 AM EST Office Visit [facility] [address] [place] [address] Patricia Vicente MD [address] [place] [address] 06/05/2025 8:30 AM EDT Office Visit [facility] [address] [place] [address] Lizett Zamorano, COAGULATING OPERATOR-SUPERVISOR PROCESS TESTING [address] [facility] [address] [place] [address] Health Maintenance Due Date Last Done Comments CT Colonography 1956 Colonoscopy 1956 Colorectal Cancer Screening 1956 FIT-DNA 1956 FIT 1956 FOBT 1956 Lung Cancer Screening Shared Decision Making 1956 Sigmoidoscopy 1956 Influenza Vaccine (#1) 2024 4, 12/23/2022, 12/04/2022, Additional history exists Mammogram 01/21/2025 01/22/2024, 12/25, 01/17/2022, Additional history exists Pap Smear Discontinued 11/08/2020 Pneumococcal Vaccine: 65+ Years Completed 3 Cervical Cancer Screening Discontinued HPV/Cotest Discontinued 01/01/2023 Procedures Procedure Name Priority Date/Time Associated Diagnosis Comments BI MAMMOGRAM SCREENING TOMOSYNTHESIS BILATERAL Routine 01/22/2024 9:58 AM EST Other screening mammogram THINPREP IMAGING PAP W/REFL HPV MRNA E6/E7 Routine 01/01/2023 11:54 AM EST Screening for malignant neoplasm of cervix THINPREP TIS PAP AND HPV MRNA E6/E7 REFLEX HPV 16,18/45 (59303) Routine 11/08/2020 from Last 3 Months or Most Recently Relevant to Health Maintenance Results * Bilateral screening mammogram with tomosynthesis (01/22/2024 9:58 AM EST) Anatomical Region Laterality Modality Breast Bilateral Mammography 01/22/2024 9:58 AM EST Impressions 01/22/2024 10:06 AM EST NO MAMMOGRAPHIC EVIDENCE OF MALIGNANCY. ROUTINE FOLLOW-UP IS RECOMMENDED IN ONE YEAR. RESULT CODE: 2 Benign Findings(s) DENSITY CODE: 2 (approximately 25-50% glandular) FOLLOW UP: 1YR The false-negative rate of mammography is approximately 10-percent. Management of a palpable abnormality must be based on clinical grounds. Patient was entered into a reminder system with a target due date for the next mammogram. Impression dictated by: Arnaldo Farris M.D.01/22/2024 10:04 AM Dictation Location: [facility] Transcribed By: [facility] 01/22/24 100 Dictated By: Arnaldo Farris II, MD 01/22/24 0958 Signed By: <Electronically signed by Arnaldo Farris II, MD in OV> 01/22/24 1004 Narrative 01/22/2024 10:06 AM [facility] Main [address] [address] Mammography Report Signed Patient: Teagan Gonsales MR#: [id number] : 1955 Acct:[id number] Age/Sex: 68 / F ADM Date: 01/22/24 [facility]: [facility] Room: Type: REG CLI Attending Dr: Patricia Vicente MD Copies to: MD Cachorro LAMAS DO Ordering Provider: PATRICIA VICENTE MD Date of Service: 01/22/24 MM/MM screening mammo BI w/CAD: screen CLINICAL DATA: Screening for malignancy. BILATERAL SCREENING MAMMOGRAMS - FULL FIELD DIGITAL WITH TOMOSYNTHESIS AND CAD Tomosynthesis craniocaudal and mediolateral oblique views of both breasts were obtained using low- dose digital technique. Comparison is made to prior studies from 01/19/2023, 01/17/2022, 01/16/2021. This examination was reviewed with the aid of CAD. There are scattered fibroglandular densities. Benign-appearing lymph nodes are noted along the chest wall. Benign-appearing calcifications are present bilaterally. There is a similar focal asymmetry laterally within the right breast. There are no dominant masses, typically malignant calcifications or architectural distortion. There has been no significant interval change. MM/MM screening mammo BI w/CAD Procedure Note Arnaldo Farris MD - 01/22/2024 [facility] Main [address] [address] Mammography Report Signed Patient: Teagan Gonsales AMR#: [id number] : 1955cct:[id number] Age/Sex: 68 / FADM Date: 01/22/24 [facility]: [facility] Room:Type: REG CLI Attending Dr: Patricia Vicente MD Copies to: MD Cachorro LAMAS DO Ordering Provider: PATRICIA VICENTE MD Date of Service: 01/22/24 MM/MM screening mammo BI w/CAD: screen CLINICAL DATA: Screening for malignancy. BILATERAL SCREENING MAMMOGRAMS - FULL FIELD DIGITAL WITH TOMOSYNTHESIS ANDCAD Tomosynthesis craniocaudal and mediolateral oblique views of both breastswere obtained using low- dose digital technique. Comparison is made to prior studies from01/19/2023, 01/17/2022, 01/16/2021. This examination was reviewed with the aid of CAD. There are scattered fibroglandular densities. Benign-appearing lymph nodesare noted along the chest wall. Benign-appearing calcifications are present bilaterally. There is asimilar focal asymmetry laterally within the right breast. There are no dominant masses, typicallymalignant calcifications or architectural distortion. There has been no significant intervalchange. MM/MM screening mammo BI w/CAD IMPRESSION: NO MAMMOGRAPHIC EVIDENCE OF MALIGNANCY. ROUTINE FOLLOW-UP IS RECOMMENDED IN ONE YEAR. RESULT CODE: 2 Benign Findings(s) DENSITY CODE: 2 (approximately 25-50% glandular) FOLLOW UP: 1YR The false-negative rate of mammography is approximately 10-percent. Management of a palpable abnormality must be based on clinical grounds. Patient was entered into a reminder system with a target due date for thenext mammogram. Impression dictated by: Arnaldo Farris M.D.01/22/2024 10:04 AM Dictation Location: [facility] Transcribed By: [facility] 01/22/24 1004 Dictated By: Arnaldo Farris II, MD 01/22/24 0958 Signed By: <Electronically signed by Arnaldo Farris II, MD inOV> 01/22/24 1004 us Patricia Vicente MD IMG BI PROCEDURES Final Result * THINPREP IMAGING PAP W/REFL HPV MRNA E6/E7 (01/01/2023 11:54 AM EST) CLINICAL INFORMATION [facility] Comment:None given LMP [facility] Comment:NONE GIVEN PREV. PAP [facility] Comment:NONE GIVEN PREV. BX [facility] Comment:NONE GIVEN SOURCE [facility] Comment:None given STATEMENT OF ADEQUACY [facility] Comment:SATISFACTORY FOR VERONICA LUATION INTERPRETATION/RESUL T [facility] Comment: Cytology Results: Negative for intraepithelial lesion or malignancy. Atrophic pattern; predominantly parabasal cells COMMENT [facility] Comment: This Pap test has been evaluated with computer assisted technology. Parabasal cells in smears that lack maturation due to atrophy or other hormonal reasons cannot be differentiated from transformation zone cells. Accordingly, presence or absence of endocervical or transformation zone components cannot be reported in this patient. SERVICING MANAGER [facility] Comment: LXT, CT(ASCP) CT screening location: [facility], [address] [place] [id number]. (ALWAYS MESSAGE) [facility] Comment: EXPLANATORY NOTE: The Pap is a screening test for cervical cancer. It is not a diagnostic test and is subject to false negative and false positive results. It is most reliable when a satisfactory sample, regularly obtained, is submitted with relevant clinical findings and history, and when the Pap result is evaluated along with historic and current clinical information. Vaginal Fluid 01/01/2023 11: 54 AM EST 01/02/2023 2:54 AM EST Narrative Resulting Agency Comment Performing Organization Information Site ID: [id number] Name: [facility] Address: [address] [place] [address], [address] [place] [id number] Director: Ricardo Frankel MD us Patricia Vicente MD LAB CYTOLOGY ORDERABLES Final Result [facility] * THINPREP TIS PAP AND HPV MRNA E6/E7 REFLEX HPV 16,18/45 ([id number]) (11/08/2020) CLINICAL INFORMATION: None given [facility] LMP: NONE GIVEN [facility] PREV. PAP: NONE GIVEN [facility] PREV. BX: NONE GIVEN [facility] SOURCE: Cervix [facility] STATEMENT OF ADEQUACY: SEE COMMENT [facility] Comment: Satisfactory for evaluation. Endocervical/transformation zone component present. INTERPRETATION/RE SULT: Negative for intraepithelial lesion or malignancy. [facility] COMMENT: This Pap test has been evaluated with computer assisted technology. [facility] SERVICING MANAGER: SEE COMMENT [facility] Comment: BH, CT(ASCP) CT screening location: [facility], [address] [place] [address], [place] [address]. COMMENT SEE COMMENT [facility] Comment: EXPLANATORY NOTE: The Pap is a screening test for cervical cancer. It is not a diagnostic test and is subject to false negative and false positive results. It is most reliable when a satisfactory sample, regularly obtained, is submitted with relevant clinical findings and history, and when the Pap result is evaluated along with historic and current clinical information. HPV MRNA E6/E7 Not Detected Not Detected [facility] Comment: Methodology: Nitrate Operator-Mediated Amplification This assay detects E6/E7 viral messenger RNA (mRNA) from 14 high-risk HPV types (16,18,31,33,35,39,45,51,52,56,58,59,66,68). The analytical performance characteristics of this assay have been determined by [facility]. The modifications have not been cleared or approved by the FDA. This assay has been validated pursuant to the CLIA regulations and is used for clinical purposes. For additional information, please refer to http://education.[employer]/faq/PMN671h3 (This link if provided for information/ educational purposes only.) 11/08/2020 Patricia Vicente MD [facility] Final Result [facility] from Last 3 Months or Most Recently Relevant to Health Maintenance Insurance MEDICARE [facility] Care Teams Corporate Giving Manager Relationship Specialty Start Date End Date Cachorro Stevens MD [address] [place] [address] [address] [place] [address] PCP - General Family Medicine 01/01/23
--- OUTSIDE RECORDS SUMMARY | 2024-09-07 09:03 | XMS_ITS | Patient Health Record ---
Author Organization [facility] in [place] Address [address] [place] [address] Care Team Providers Care Tube Washer Name Role Phone Cachorro Stevens DO Primary Care Provider Unavailab le Allergies No Known Allergies Reason For Referral No Information Medications Medication SIG (Take, Route, Frequency, Duration) [...] 30 DAYS Oral for 30 Days Active ALPRAZolam 0.5 MG Oral for 30 Days Active Fluorouracil 5 % APPLY TOPICALLY TO AREAS ON THE FACE TWICE DAILY DIRECTED FOR 14 DAYS External for 30 Days Active hydroCHLOROthiazide 25 MG Oral for 90 Days Active Losartan Potassium 100 MG Oral for 90 Days Active Atorvastatin Calcium 20 MG Oral for 90 Days Active Social History Tobacco Use: Social History Observation Description Date Details (start date - stop date) Never Smoker NA - NA Tobacco Control (Standard) Question Answer Notes Tobacco use: Nonsmoker Plan Of Treatment No Information Insurance Providers Payer Name Payer Address Payer Phone Subscriber Number Group Number Insured Name Patient Relationship to Insured Coverage Start Date Coverage End Date [place] [address] [place] [address] [id number] Teagan Gonsales Self - patient is the insured BCBS OUT OF STATE [address] [place] [address] [id number] Teagan Gonsales Self - patient is the insured
--- OUTSIDE RECORDS SUMMARY | 2024-09-07 09:03 | XMS_ITS | Clinical Summary ---
Author Organization [facility] Address [address] [place] [address] Phone Care Team Providers Care Geriatric Nurse Assistant Name Role Phone Unavailable Primary Care Provider Unavailabl e Social History Tobacco Use Types Packs/Day Years Used Date Smoking Tobacco: Never Assessed Comments Unknown Sex and Gender Information Value Date Recorded Sex Assigned at Not on file Legal Sex Female 2:48 PM EST Gender Identity Not on file Sexual Orientation Not on file Plan of Treatment Not on file
--- NOTE | 2024-09-07 09:24 | XR_ITS ---
The [address] [address] Patient Name: RAHUL AGUILERA MRN: [id number] date: 1955 Sex: F Assigned Patient Location: [facility] Current Patient Location: [facility] Accession/Order Number: [id number] Exam Date: 09/07/2024 10:08 Report Date: 09/07/2024 10:11 At the request of: DEEPIKA XIE DPRubi Procedure: XR foot LT min 3V LEFT FOOT - 3 views CLINICAL DATA: Chronic left foot pain, lump near the heel and history of plantar fasciitis. No injury. COMPARISON: 07/28/2023 Standing AP, lateral and oblique views were obtained. A marker was placed near the site of patient's lump. There is no evidence of fracture or dislocation. Posterior and plantar calcaneal spurs are again visualized. Patient's heel lump is in the vicinity of the posterior spur. There is no significant soft tissue swelling. XR/XR foot LT min 3V IMPRESSION: CALCANEAL SPURS. NO ACUTE BONY FINDINGS. Impression dictated by: Yadira Augustin M.D. 09/07/2024 10:11 AM Dictation Location: [place] [address] Electronically authenticated by: [id number] Y Date: 09/07/2024 10:11
== END 2024-09-07 08:58 | disposition home or self-care (01) ==
LOC: RAD 09:01
PROVIDERS: PCP Family Medicine; Visit Provider Podiatrist Foot & Ankle Surgery
DX: M79.672 Pain in left foot (principal); M77.32 Calcaneal spur, left foot
CPT/HCPCS: 73630

== ENCOUNTER 2024-12-22 06:53 | Outpatient (OUT) | payer MEDICARE, BC, SELFPAY ==
--- OUTSIDE RECORDS SUMMARY | 2024-12-22 06:59 | XMS_ITS | Clinical Summary ---
Author Organization [facility] Address [address] [place] [address] Phone Care Team Providers Care Safety Spec Name Role Phone Unavailable Primary Care Provider Unavailabl e Social History Tobacco UseTypesPacks/DayYears UsedDateSmoking Tobacco: Never Assessed CommentsUnknownSex and Gender InformationValueDate RecordedSex Assigned at Not on fileLegal YceWsdflg82/25/2022 2:48 PM ESTGender IdentityNot on fileSexual OrientationNot on file Plan of Treatment Not on file
--- OUTSIDE RECORDS SUMMARY | 2024-12-22 06:59 | XMS_ITS | Clinical Summary ---
Author Organization [facility] Address [address] [place], [place] [address] Care Team Providers Care Histotechnologist Supervisor Name Role Phone Cachorro Stevens Micah KISER Primary Care Provider [phone] Family History Medical HistoryRelationCommentsBreast CancerMaternal Auntdx 60sPancreatic cancer [Other]Maternal AuntProstate CancerMaternal Uncledx 70sOvarian cancerMother papillary serous cyst adenocarcinoma, right ovary, well differentiatedRelation StatusCommentsMaternal AuntMaternal UncleMother Social History Tobacco UseTypesPacks/DayYears UsedDateSmoking Tobacco: CvrpaoGkuajaitib633.8 Started: 02/23/1969Alcohol UseStandard Drinks/WeekCommentsYes0 (1 standard drink = 0.6 oz pure alcohol)3 alcoholic beverages per weekCommentsUnknownSex and Gender InformationValueDate RecordedSex Assigned at BirthNot on fileLegal MtdPkivbl86/30/2013 2:37 PM EDTGender IdentityNot on fileSexual OrientationNot on file Plan of Treatment Health MaintenanceDue DateLast DoneCommentsAnxiety Kgwykrpbb56/21/1975Depression Lemxzsehi62/21/1975Hepatitis C Erpgpsdwn08/21/1975DTaP,Tdap,Td Vaccine (1 - Tdap)09/13/1975Mammogram Yxvcbpflm97/21/1997CT Bpmfpntgwthd38/21/2002Cologuard (FIT-DNA)09/12/20018632Vcwzilcvxbw90/21/2002Colorectal Cancer Bqnjmdbps57/21/2002 Diabetes Wuybnmxtl72/21/2002Fecal Occult Blood2001Lipid Screening 09/12/20016755Nmdcbpscizlwm27/21/2002Pneumococcal Vaccine: 50+ (1 of 1 - PCV) 2006Shingrix Vaccine (1 of 2)2006Bone Density Fflcmpdre54/21/2022 Advance Directive Ybgsciiycl54/01/2025ovid-19 Vaccine (1 - 2024- season) 2024Influenza Vaccine (#1)2024RSV Vaccine (1 - 1-dose 75+ series) 09/13/2031 Insurance Care Teams Team MemberRelationshipSpecialtyStart DateEnd Date Cachorro Stevens DO [address] [place] [address] PCP - GeneralFamily Zkurarrq85/4/13
--- OUTSIDE RECORDS SUMMARY | 2024-12-22 06:59 | XMS_ITS | Patient Health Record ---
Author Organization [facility] Address [address] [address], [place] [address] Care Team Providers Care Apron Man Name Role Phone Paulo Diaz Unavailable [phone] Allergies No Known Allergies Reason For Referral No Information Medications Medication SIG (Take, Route, Frequency, Duration) Notes Start Date End Date Status ALPRAZolam 0.5 MG Tablet Oral; Duration: 30 Days ActiveAmoxicillin 500 MG CapsuleOral; Duration: 1 DaysActivehydroCHLOROthiazide 25 MG TabletTAKE 1 TABLET DAILY Oral; Duration: 90 DaysActiveDonaActiveLosartan Potassium 100 MG TabletOral; Duration: 90 DaysActiveFluorouracil 5 % Cream1 application Externally Twice a dayActiveCholecalciferol 50 MCG (2000 UT) Capsule 1 capsule Orally Once a dayActiveCalcium Carbonate w/Vitamin DActiveVitamin C ActiveNabumetoneActiveAzelaic Acid 15 % GelAPPLY A THIN LAYER TOPICALLY TO THE FACE ONCE DAILY. External; Duration: 30 DaysActiveTurmericActivedexAMETHasone Sodium Phosphate 4 MG/ML SolutionInjection; Duration: 2 GbslHbbjhsB09Tydbaa Social History Section Notes: Patient is a former smoker. Social alcohol use. Exercise habits: Exercises Three Times A Week, Including Pool Exercises Hobbies: WAY Systemsd 71lbsilter Encounters Encounter Location Date Provider Diagnosis [facility] [address] [facility] [address], [place] [address] 09/09/2024 Paulo Diaz Left Achilles tendinitis M76.62 ; Strain of left Achilles tendon, sequela S86.012S and Calcaneal spur, left M77.32 Assessments Encounter Date Diagnosis (ICD Code) Assessment Notes Treatment Notes Treatment Clinical Notes Section Notes 09/09/2024 Strain of left Achilles tendon, sequela (ICD-10 - S86.012S) Chronic left heel pain with variable intensity, worsened by activity and improved with rest and supportive footwear. History of Achilles tendon rupture about a year ago. Patient has tried multiple conservative measures including stretching, pool exercises, shoe modifications, and topical agents. Physical therapy completed within the past six months. Patient is hesitant about surgical interventionand prefers conservative management. - Prescribed Voltaren topical gel with refills for symptomatic relief. - Recommended continued use of supportive footwear and avoidance of barefoot walking. - Discussed use of silicone heel cup for additional support. - Encouraged ongoing stretching and pool exercises. - Offered more potent compounded topical medication if Voltaren is insufficient - prescription sentto [facility] 09/09/2024Left Achilles tendinitis (ICD-10 - M76.62)09/09/2024alcaneal spur, left (ICD-10 - M77.32) Plan Of Treatment No Information Insurance Providers Payer Name Payer Address Payer Phone Subscriber Number Group Number Insured Name Patient Relationship to Insured Coverage Start Date Coverage End Date Medicare of [place] J15 [address] [place], [place] [address] [phone] [id number] Alberto Gonsaleself - [facility] the [facility] [address] [place] [id number], Bernard Spouse - patient is the spouse of the insured Medical (General) History Medical History History ICD Code Arthritis High Blood PressureHigh CholesterolJoint ReplacementSurgical History Surgery Date(Month/Year) Right Hip Replacement 2022
--- OUTSIDE RECORDS SUMMARY | 2024-12-22 07:00 | XMS_ITS | Clinical Summary ---
Author Organization [facility] Address [address] [place] [address] Care Team Providers Care Protective Signal Operator Name Role Phone Cachorro Stevens MD Primary Care Provider [phone] Allergies No known active allergies Medications MedicationSigDispense QuantityRefillsLast FilledStart DateEnd DateStatus hydroCHLOROthiazide (HYDRODiuril) 25 MG tablet 1 (one) time each day at the same time.Active ascorbic acid (Vitamin C) 500 MG tablet Take 500 mg by mouth.Active atorvastatin (Lipitor) 20 MG tablet Take 20 mg by mouth in the morning.11/29/2022ctive Calcium Carbonate-Vitamin D 600-3.125 MG-MCG tablet Take 1 tablet by mouth.Active cholecalciferol (Vitamin D-3) 50 MCG (1999 UT) capsule Take 1 capsule by mouth in the morning and 1 capsule in the evening.Active diclofenac sodium 1 % gel Apply 1 application topically.Active ferrous sulfate 325 (65 Fe) MG tablet Take 1 tablet by mouth 5 days weekly as directed Indications: supplementActive losartan (Cozaar) 100 MG tablet TAKE 1 TABLET BY MOUTH EVERY DAY for 90 daysActive ALPRAZolam (Xanax) 0.5 MG tablet Take 0.5 mg by mouth in the morning and 0.5 mg before bedtime.09/30/2022ctive fluorouracil (Efudex) 5 % cream Indications:Actinic keratosisApply to directed areas on the face twice a day x 14 days. Dispense 30 day supply but only use for 14 days. 40 g 05/04/2023ctive methylPREDNISolone (Medrol Dospak) 4 MG tablets Indications:Left Achilles tendinitisFollow schedule on MEDROL PACK package instructions to be used as directed 21 tablet 10/24/2024Active meloxicam (Mobic) 15 MG tablet Take 15 mg by mouth DailyActive Methylcobalamin 1 MG chewable tablet .KFDTPVP6010/06/2023ctive azelaic acid (Finacea) 15 % gel Indications:Other rosaceaApply (1g) thin layer to the face, once daily, 30 day supply 50 g 5Active hydrocortisone 2.5 % cream Indications:Other seborrheic dermatitisApply (1g) thin layer to affected areas bid prn for flares 60 g 1105Active Active Problems No known active problems Encounters DateTypeDepartmentCare QhgeAqaelvlvlti24/28/2025 4:10 PM EDTProcedure Visit [facility] [address] [facility] [address] [place] [address] Juan Yates DPM Left Achilles tendinitis (Primary Dx); Pain due to onychomycosis of toenails of both feet; Contracture of left ankle10/20/2024amboo flowsheet [facility] [address] [facility] [address] [place] [address] Juan Yates DPM 10/20/2024Travelfrom Last 3 Months Family History Medical HistoryRelationNameCommentsCancerBrother 1Jaime A. McCroryHeart failure Brother 2Dan McCroryDiabetesFatherDiabetesMaternal GrandmotherIsabelle Gee CancerMotherIrma MccroryOvarian cancerMotherIrma MccroryBreast cancerMother's Sister 1Rosemary EvenoffRashes / Skin problemsMother's Sister 2JoAnne Bogdan Bone cancerSiblingLung cancerSiblingRelationNameStatusCommentsBrother 1Jaime A. McCroryBrother 2Dan McCroryFatherDeceasedMaternal GrandmotherIsabelle Gee MotherIrma MccroryDeceasedMother's Sister 1Rosemary EvenoffMother's Sister 2 Cipriano McCrorySiblingAlive Social History Tobacco UseTypesPacks/DayYears UsedDateSmoking Tobacco: KbnwhaVvpbopaela646.6 03/16/1969 - 10/14/2016Passive Smoke Exposure: PastSmokeless Tobacco: Never Tobacco Cessation:Counseling Given: Yes Alcohol UseStandard Drinks/WeekCommentsYes1 (1 standard drink = 0.6 oz pure alcohol)maybe one glass a month,,,, caffeine intake: 1-2 cups per day coffee PHQ-2AnswerDate RecordedPatient Health Questionnaire-2 Egfzc374/09/2023 CommentsNoSex and Gender InformationValueDate RecordedSex Assigned at Jnjuqk9312/26/2022 5:44 AM EDTLegal BtpPnqseg30/15/2023 6:52 PM EDTGender Identity Ljygna3905/07/2022 6:52 PM EDTSexual OrientationNot on file Last Filed Vital Signs Vital SignReadingTime TakenCommentsBlood Xdngexbd138/8011 10:26 AM EST Rekui845712/31/2023 11:21 AM ESTTemperature--Respiratory Utqn875810/20/2024 3:41 PM EDTOxygen Saturation--Inhaled Oxygen Concentration--Mhibit69.6 kg (149 lb) 10/20/2024 3:41 PM JRCYtiejg121.9 cm (5' 1 )10/20/2024 3:41 PM EDTBody Mass Index28.1508 3:41 PM EDT Plan of Treatment DateTypeDepartmentCare Team (Latest Contact Info)Bxpyitpwrid72/13/2025 8:30 AM ESTProcedure Visit [facility] [address] [facility] [address] [place] [address] Jaun Yates DPM [address] [facility] [address] [place] [address] 01/10/2025 10:00 AM ESTOffice Visit [facility] [address] [place] [address] Patricia Hamlin MD [address] [place] [address] 06/05/2025 8:30 AM EDTOffice Visit [facility] [address] [place] [address] Lizett Zamorano, DOLL WIG HACKLER-FITNESS INSTRUCTOR [address] [place] [address] Health MaintenanceDue DateLast DoneCommentsCT Yvhovodoqarr96/21/1957Colonoscopy 1955Colorectal Cancer Dgqekuwue11/21/1957FIT-DNA1956FIT1956 FOBT1956Lung Cancer Screening Shared Decision Aqthhb44 1955 Rrqaqotxvmulb70/21/1957Influenza Vaccine (#1)5011/16/2023, 12/23/2022, 12/04/2022, Additional history ajifaxSyipvcljk39, 01/19/2023, 01/17/2022, Additional history existsPap FaskhVyewzkhrseby32/16/2021neumococcal Vaccine: 65+ PdgedGmmuunqxo30/21/2023ervical Cancer ScreeningDiscontinued HPV/JqkejbFtvpzjwuohnz29/09/2023 Procedures Procedure NamePriorityDate/TimeAssociated DiagnosisCommentsBI MAMMOGRAM SCREENING TOMOSYNTHESIS RJIAQQAPGPwyzzkd83/29/2024 9:58 AM EST Other screening mammogram THINPREP IMAGING PAP W/REFL HPV MRNA E6/X6Kmpjcdz16/09/2023 11:54 AM EST Screening for malignant neoplasm of cervix THINPREP TIS PAP AND HPV MRNA E6/E7 REFLEX HPV 16,18/45 (64371)Yoxhpav1911/08/2020 from Last 3 Months or Most Recently Relevant to Health Maintenance Results * Bilateral screening mammogram with tomosynthesis (01/22/2024 9:58 AM EST) Anatomical RegionLateralityModalityBreastBilateralMammographySpecimen (Source) Anatomical Location / LateralityCollection Method / VolumeCollection Time Received Time01/22/2024 9:58 AM EST Impressions 01/22/2024 10:06 AM EST NO MAMMOGRAPHIC EVIDENCE OF MALIGNANCY. ? ROUTINE FOLLOW-UP IS RECOMMENDED IN ONE YEAR. ? RESULT CODE: 2 ? Benign Findings(s) ?? DENSITY CODE: 2 (approximately 25-50% glandular) ? FOLLOW UP: 1YR ? The false-negative rate of mammography is approximately 10-percent. ? Management of a palpable abnormality must be based on clinical grounds. ?? Patient was entered into a reminder system with a target due date for the next mammogram. ? Impression dictated by: Arnaldo Farris M.D.01/22/2024 10:04 AM ? Dictation Location: [facility] ? Transcribed By: ? PWS ?01/22/24 1004 ? Dictated By: ?Arnaldo Farris II, MD ?01/22/24 0958 ? Signed By: <Electronically signed by Arnaldo Farris II, MD in OV> ? 01/22/24 1004 Narrative 01/22/2024 10:06 AM EST [facility] ?[facility] [place] ?[address] ? [place] [address] ? Mammography Report ? Signed ? Patient: Salem,Teagan A ?MR#: [id number] ?? [id number] ? : 1955 ?Acct:[id number] ? Age/Sex: 68 / F ?ADM Date: 11/29/24 ? Loc: [place] ?Room: ?Type: REG CLI ?? Attending Dr: Patricia Hamlin MD ?? Copies to: PATRICIA HAMLIN MD ?? Cachorro Stevens,DO ? Ordering Provider: PATRICIA HAMLIN MD ?? Date of Service: 01/22/24 ?? MM/MM screening mammo BI w/CAD: screen ? CLINICAL DATA: ??Screening for malignancy. ? BILATERAL SCREENING MAMMOGRAMS - FULL FIELD DIGITAL WITH TOMOSYNTHESIS AND CAD ? Tomosynthesis craniocaudal and mediolateral oblique views of both breasts were obtained using low- dose digital technique. ??Comparison is made to prior studies from 01/19/2023, 01/17/2022, 01/16/2021. ??This examination was reviewed with the aid of CAD. ? There are scattered fibroglandular densities. Benign-appearing lymph nodes are noted along the chest wall. Benign-appearing calcifications are present bilaterally. There is a similar focal asymmetry laterally within the right breast. There are no dominant masses, typically malignant calcifications or architectural distortion. ??There has been no significant interval change. ? MM/MM screening mammo BI w/CAD ?? Procedure Note Arnaldo Farris MD - 01/22/2024 [facility] [place] [address] [place] [address] Mammography Report Signed Patient: Teagan Gonsales AMR#: [id number] : 7Acct:[id number] Age/Sex: 68 / FADM Date: 01/22/24 Loc: [place] Room:Type: REG CLI Attending Dr: Patricia Hamlin MD Copies to: MD Cachorro LAMAS DO Ordering Provider: PATRICIA HAMLIN MD Date of Service: 01/22/24 MM/MM screening [...] Arnaldo Farris M.D.01/22/2024 10:04 AM Dictation Location: [facility] Transcribed By: [facility] 01/22/24 1004 Dictated By: Arnaldo Farris II, MD 01/22/24 0958 Signed By: <Electronically signed by Arnaldo Farris II, MD inOV> 01/22/24 1004 Authorizing ProviderResult TypeResult StatusBrian Dhara Hamlin MDIMXavier BI PROCEDURES Final Result * THINPREP IMAGING PAP W/REFL HPV MRNA E6/E7 (01/01/2023 11:54 AM EST)Component ValueRef RangeTest MethodAnalysis TimePerformed AtPathologist Signature CLINICAL INFORMATIONQUESTComment:None givenLMPQUESTComment:NONE GIVENPREV. PAP QUESTComment:NONE GIVENPREV. BXQUESTComment:NONE GIVENSOURCEQUESTComment:None givenSTATEMENT OF ADEQUACYQUESTComment:SATISFACTORY FOR EVALUATION INTERPRETATION/RESULTQUESTComment: Cytology Results: Negative for intraepithelial lesion or malignancy. Atrophic pattern; predominantly parabasal cells COMMENTQUESTComment: This Pap test has been evaluated with computer assisted technology. Parabasal cells in smears that lack maturation due to atrophy or other hormonal reasons cannot be differentiated from transformation zone cells. Accordingly, presence or absence of endocervical or transformation zone components cannot be reported in this patient. CYTOTECHNOLOGISTQUESTComment: LXT, CT(ASCP) CT screening location: [facility], [address] [place] [address]. (ALWAYS MESSAGE)QUESTComment: EXPLANATORY NOTE: The Pap is a screening test for cervical cancer. It is not a diagnostic test and is subject to false negative and false positive results. It is most reliable when a satisfactory sample, regularly obtained, is submitted with relevant clinical findings and history, and when the Pap result is evaluated along with historic and current clinical information. Specimen (Source)Anatomical Location / LateralityCollection Method / Volume Collection TimeReceived TimeVaginal Fluid01/01/2023 11:54 AM EST01/02/2023 2:54 AM EST Narrative Resulting Agency Comment Performing Organization Information ?Site ID: [id number] ?Name: [facility] ?Address: [address] [place] [phone] ?Director: Ricardo Frankel MD Authorizing ProviderResult TypeResult StatusPatricia Hamlin MDLAB CYTOLOGY ORDERABLESFinal ResultPerforming OrganizationAddressCity/State/ZIP CodePhone Number QUEST * THINPREP TIS PAP AND HPV MRNA E6/E7 REFLEX HPV 16,18/45 ([id number]) (11/08/2020) ComponentValueRef RangeTest MethodAnalysis TimePerformed AtPathologist SignatureCLINICAL INFORMATION:None givenNOMS LEGACY EXTERNAL LABLMP:NONE GIVEN [facility] LEGACY EXTERNAL LABPREV. PAP:NONE GIVENNOMS LEGACY EXTERNAL LABPREV. BX: NONE GIVENNOMS LEGACY EXTERNAL LABSOURCE:CervixNOMS LEGACY EXTERNAL LAB STATEMENT OF ADEQUACY:SEE COMMENTNOMS LEGACY EXTERNAL LABComment: Satisfactory for evaluation. Endocervical/transformation zone component present. INTERPRETATION/RESULT:Negative for intraepithelial lesion or malignancy.[facility] LEGACY EXTERNAL LABCOMMENT:This Pap test has been evaluated with computer assisted technology.[facility] EXTERNAL LABCYTOTECHNOLOGIST:SEE COMMENTNOMS LEGACY EXTERNAL LABComment: BH, CT(ASCP) CT screening location: [email or web address] [facility], [address] [place] [address], [place] [address]. COMMENTSEE COMMENTNO [facility] EXTERNAL LABComment: EXPLANATORY NOTE: The Pap is a screening test for cervical cancer. It is not a diagnostic test and is subject to false negative and false positive results. It is most reliable when a satisfactory sample, regularly obtained, is submitted with relevant clinical findings and history, and when the Pap result is evaluated along with historic and current clinical information. HPV MRNA E6/E7Not DetectedNot DetectedNOFORMERLY [facility] EXTERNAL LABComment: Methodology: Court Deputy-Mediated Amplification This assay detects E6/E7 viral messenger RNA (mRNA) from 14 high-risk HPV types (16,18,31,33,35,39,45,51,52,56,58,59,66,68). The analytical performance characteristics of this assay have been determined by [facility]. The modifications have not been cleared or approved by the FDA. This assay has been validated pursuant to the CLIA regulations and is used for clinical purposes. For additional information, please refer to http://education.[employer]/faq/BAL465y8 (This link if provided for information/ educational purposes only.) Specimen (Source)Anatomical Location / LateralityCollection Method / Volume Collection TimeReceived Time11/08/2020 Narrative Authorizing ProviderResult TypeResult StatusPatricia PEPE LABSFinal ResultPerforming OrganizationAddressCity/State/ZIP CodePhone Number [facility] from Last 3 Months or Most Recently Relevant to Health Maintenance Insurance Care Teams Team MemberRelationshipSpecialtyStart DateEnd Date Cachorro Stevens MD [address] [place] [address] [place] [address] PCP - Generalmily Wysiopnn26/9/23
--- OUTSIDE RECORDS SUMMARY | 2024-12-22 07:00 | XMS_ITS | CCD ---
Author Organization [facility] Care Team Providers Care Steamfitter Supervisor Name Role Phone Roma Pritchard Unavailable Megan Asencio Unavailable Tanna Wilson Unavailable DO Roma Pritchard Primary Care Provider [phone] DO Roma Pritchard Attending Provider DO Roma Pritchard Primary Care Provider DO Roma Pritchard Attending Provider MD Orlando Vicente Attending Provider LEORA Wilson Attending Provider [phone] MD Ar Herman II Attending Provider [phone] Ar Herman II Unavailable [phone] FRANCHESKA, DR BRANDON Primary Care Unavailable LIVAN, RABIA Admitting Unavailable ZIEBER, DR PAIGE Carmichael Consulting Unavailable LIVAN, RABIA Attending Unavailable LIVAN, RABIA Consulting Unavailable GIRCARMEN, DR BRANDON Primary Care Unavailable LIVAN, RABIA Admitting Unavailable ZIEBER, DR PAIGE Carmichael Consulting Unavailable LIVAN, RABIA Attending Unavailable LIVAN, RABIA Consulting Unavailable GIRCARMEN, DR BRANDON Primary Care Unavailable LIVAN, RABIA Attending Unavailable LIVAN, RABIA Admitting Unavailable ZIEBER, DR PAIGE Carmichael Consulting Unavailable LIVAN, RABIA Consulting Unavailable GIRCARMEN, DR BRANDON Attending Unavailable FRANCHESKA, DR BRANDON Admitting Unavailable FRANCHESKA, DR BRANDON Primary Care Unavailable FRANCHESKA, DR BRANDON Primary Care Unavailable LIVAN, RABIA Admitting Unavailable LIVAN, RABIA Attending Unavailable FRANCHESKA, DR BRANDON Primary Care [...] V Consulting Unavailable RITCHIE, MARIANA Attending Unavailable GIRVIN, DR BRANDON Primary Care Unavailable RITCHIE, MARIANA Admitting Unavailable RITCHIE, MARIANA Consulting Unavailable Gircarmen, DO Brandon Primary Care Provider DO Roma Pritchard Attending Provider MD Ar Herman II Attending Provider DO Roma Pritchard Primary Care Provider DO Roma Pritchard Attending Provider [phone] Roma Pritchard Primary Care Physician DO Roma Pritchard Primary Care Provider [phone] MD Ar Herman II Attending Provider DO Roma Pritchard Attending Provider [phone] Self, Referral Attending Provider Unavailable Colby Shaffer Unavailable DO Roma Pritchard Primary Care Provider MD Ar Herman II Attending Provider DO Colby Shaffer Attending Provider LEORA Wilson Attending Provider DO Roma Pritchard Primary Care Provider DO Roma Pritchard Primary Care Provider DO Colby Shaffer Attending Provider LEORA Wilson Attending Provider DO Roma Pritchard Attending Provider DO Roma Pritchard Primary Care Provider [phone] ROBERT Duong Attending Provider DO Roma Pritchard Primary Care Provider DO Roma Pritchard Attending Provider [phone] Roma Pritchard MD Primary Care Provider Roma Pritchard DO Primary Care Provider [phone] Roma Pritchard DO Attending Provider Roma Pritchard DO Primary Care Provider Orlando Vicente MD Attending Provider [phone] Roma Pritchard DO Attending Provider [phone] Roma Pritchard MD Primary Care Provider Roma Pritchard DO Primary Care Provider Roma Pritchard DO Attending Provider [phone] Roma Pritchard Attending Unavailable Francheska, Roma Primary Care Unavailable Francheska, Roma Admitting Unavailable Francheska, Roma Attending Unavailable Francheska, Roma Primary Care Unavailable Francheska, Roma Admitting Unavailable Francheska, Roma Primary Care Unavailable Orlando Vicente Attending Unavailable Orlando Vicente Admitting Unavailable Francheska, Roma Attending Unavailable Francheska, Roma Primary Care Unavailable Francheska, Roma Admitting Unavailable LULA ZAMORANO Attending Unavailable JUAN YATES Attending Unavailable JUAN YATES Attending Unavailable JUAN YATES Attending Unavailable JUAN YATES Attending Unavailable JUAN YATES Attending Unavailable ORLANDO VICENTE Attending Unavailable JUAN YATES Attending Unavailable JUAN YATES Attending Unavailable Mady Sheffield Attending Unavailable MARIANA UDONG Attending Unavailable Medications Current Medications MedicationDrug Class(es)DatesSig (Normalized)Sig (Original)Ascorbic Acid (20 sources)Vitamin CStart: 31-30-2457Pgibttd C Daily Start Date: 01/06/23 Status: OrderedStart: 09-58-0665pngt 1 tablet by mouth once dailyStart: 22-94-6105mhtp 1 tablet by mouth every other dayVitamin C 500 MG 1 tablet Orally every other day June, Activeascorbic acid (Vitamin C) 500 MG tablet Take 500 mg by mouth. Activeatorvastatin 20 mg oral tablet (20 sources)HMG-CoA Reductase InhibitorStart: 09-36-3427fjjo 1 tablet by mouth once dailyStart: 05-21-2023 End: 48-96-4588igzr 1 tablet by mouth once dailyAtorvastatin 20 mg tablet Discontinued 0 .ROUTE .COMPLEX May 21, 2023 1:14pm July 07, 2023 8:36am TAKE 1 TABLET BY MOUTH EVERY DAYStart: 05-21-2023 End: 98-06-7131iobe 1 tablet by mouth once dailyAtorvastatin Discontinued 0 .ROUTE .COMPLEX May 21, 2023 1:14pm July 07, 2023 8:36am TAKE 1TABLET BY MOUTH EVERY DAYStart: 09-46-3083tkwm 1 tablet by mouth once dailyAtorvastatin Active 0 .ROUTE .COMPLEX May 21, 2023 1:14pm TAKE 1 TABLET BY MOUTH EVERY DAYStart: 12-25-2019 End: 27-75-6873xhcl 1 tablet by mouth once dailyAtorvastatin 20 mg tablet Discontinued 20 MG PO Daily July 07, 2023 8:36am May 26, 2024 12:22pmazelaic acid 0.15 mg/mg topical gel (20 sources)Start: 77-26-1378Tvgmy: 05-04-2023 End: 48-85-5064tzrjpkn acid (Finacea) 15 % gel Indications: Other rosacea Apply (1g) thin layer to the face, once daily, 30 day supply 50 g 11 05/05/2024 Active Calcium + D3 600-800 MG-UNIT (1 source)take 600-800 tablets by mouth once dailyCalcium + D3 600-800 MG-UNIT 1 tablet with a meal Orally Once a day Activecalcium carbonate 1500 mg / cholecalciferol 800 unt oral tablet (15 sources)Vitamin Dtake 1 tablet by mouth every twenty-four hoursCaltrate 600+D3 600-800 MG-UNIT 1 tablet with a meal Orally Once a day Activetake 600-800 tablets by mouth once dailyCaltrate 600+D3 600-800 MG-UNIT 1 tablet with a meal Orally Once a day ActiveCalcium Carbonate / Ergocalciferol (20 sources)Provitamin D2 Compoundtake 1 tablet by mouth onceCalcium Carbonate- Vitamin D 600-3.125 MG-MCG tablet Take 1 tablet by mouth. ActiveCalcium Carbonate-Vit D3-Min (14 sources)Start: 55-17-6085ctrp 1 tablet by mouth once daily in the evening Calcium Carbonate-Vit D3-Min Active 1 TAB PO Every evening October 16, 2022 11:00pmStart: 77-17-9905hdvz 1 tablet by mouth once daily in the eveningCalcium Carbonate-Vit D3-Min Active 1 TAB PO Every evening October 17, 2022 12:00am Calcium Carbonate-Vit D3-Min 600 mg calcium- 200 unit Tablet (8 sources)Start: 79-35-1638vjfo 1 tablet by mouth once daily in the evening Calcium Carbonate-Vit D3-Min 600 mg calcium- 200 unit Tablet Active 1 TAB PO Every evening October 17, 2022 12:00am Complies with drug therapyStart: 29-31-6358bsqg 1 tablet by mouth once daily in the eveningStart: 46-79-6973amwd 1 tablet by mouth once daily in the eveningCalcium Carbonate-Vit D3-Min 600 mg calcium- 200 unit Tablet Active 1 TAB PO Every evening October 17, 2022 12:00am Start: 08-49-6359kzct 1 tablet by mouth once daily in the eveningCalcium Carbonate-Vit D3-Min 600 mg calcium- 200 unit Tablet Active 1 TAB PO Every evening October 16, 2022 11:00pmCalcium Citrate / Vitamin D (1 source)Start: 27-46-7542erlrhik-vitamin D Daily Start Date: 01/06/23 Status: Orderedcelecoxib 200 mg oral capsule (20 sources)Nonsteroidal Anti-inflammatory DrugStart: 22-37-2689nmup 1 mg by mouth twice dailycelecoxib 200 mg Cap mg cap(s), Oral, BID, Refills(s) 0 Start Date: 01/24/20 Status: OrderedStart: 06-27-2019 End: 77-78-1342mtzc 1 capsule by mouth once daily before lunchCelecoxib 200 mg capsule Discontinued 200 MG PO Daily before lunch December 25, 2019 12:00am July 07, 2023 9:27amcholecalciferol 0.05 mg oral capsule (20 sources)Vitamin DStart: 90-61-6356jpge 1 capsule by mouth once dailyStart: 10-17-2022 End: 62-73-9862ojdd 1 capsule by mouth twice dailyCholecalciferol (Vitamin D3) (Vitamin D3) 50 mcg (2,000 unit) Capsule Discontinued 50 MCG PO Twice daily October 17, 2022 12:00am October 06, 2023 9:34amStart: 09-18-2022 Cholecalciferol 25 MCG (1000 UT) as directed Orally Once a day 5k daily Aug, Not-TakingStart: 90-97-3476Fttjjotrhoqbsjt 25 MCG (1000 UT) as directed Orally Once a day 5k daily Aug, ActiveStart: 31-48-0936nsms 5 capsules by mouth once dailyCholecalciferol 25 MCG (1000 UT) 5 capsules Orally Once a day for 30 days 5k daily Aug, ActiveCPAP Machine (20 sources)CPAP Machine Activediclofenac sodium 0.01 mg/mg topical gel (20 sources)Nonsteroidal Anti-inflammatory Drugdiclofenac sodium 1 % gel Apply 1 application topically. Activeferrous sulfate 324 mg delayed release oral tablet (20 sources)Start: 95-65-0531dzja 1 tablet by mouth every weekStart: 07-07-2023 End: 38-91-6370mhvx 1 tablet by mouth three times weeklyFerrous Sulfate 324 mg (65 mg iron) tablet,delayed release (DR/EC) Discontinued 324 MG PO Daily July 07, 2023 9:27am July 07, 2023 9:34am takes 3 days per weekStart: 10-17-2022 End: 51-95-3710oerk 1 tablet by mouth five times weeklyFerrous Sulfate 324 mg (65 mg iron) Tablet,Delayed Release (Dr/Ec) Discontinued 324 MG PO Daily October 17, 2022 12:00am July 07, 2023 9:28am takes 5 days per weekStart: 09-18-2022 take 1 tablet by mouth every other dayIron 325 (65 Fe) MG 1 tablet Orally qod Aug, ActiveStart: 85-16-7632cffl 1 tablet by mouth every eight hoursIron 325 (65 Fe) MG 1 tablet Orally Three Times a Day Aug, Not-TakingStart: 57-63-7416Tnfmzkx Sulfate 325 (65 Fe) MG 1 tablet Orally five days a week May, ActiveStart: 18-14-3602Voszajz Sulfate 325 (65 Fe) MG 1 tablet Orally five days a week May, ActiveStart: 36-18-8634vjut 1 tablet by mouth every other dayFerrous Sulfate 325 (65 Fe) MG 1 tablet Orally every other day May, ActiveStart: 55-06-2902bbvu 1 tablet by mouth every twenty-four hours Ferrous Sulfate 325 (65 Fe) MG 1 tablet Orally Once a day May, Active Start: 64-21-7363mjzz 1 tablet by mouth once dailyFerrous Sulfate 325 (65 Fe) MG 1 tablet Orally Once a day May, Activetake 1 tablet by mouth every week ferrous sulfate 325 (65 Fe) MG tablet Take 1 tablet by mouth 5 days weekly as directed Indications:supplement Activefluorouracil 50 mg/ml topical cream (20 sources)Nucleoside Metabolic InhibitorStart: 60-10-0925Vyzmi: 05-04-2023 fluorouracil (Efudex) 5 % cream Indications: Actinic keratosis Apply to directed areas on the face twice a day x 14 days. Dispense 30 day supply but only use for 14 days. 40 g 05/04/2023 Activeglucosamine sulfate 750 mg oral tablet (5 sources)Start: 89-59-0684aqqdwMXZMAAaqkzmsph 25 mg oral tablet (20 sources)Thiazide DiureticStart: 57-88-3936Mwuwu: 10-06-2023 End: 34-35-7817rchi 1 tablet by mouth once dailyHydrochlorothiazide 25 mg tablet Discontinued 25 MG PO Daily October 06, 2023 9:18am September 19, 2024 8:37am Start: 08-28-2023 End: 01-66-0822Yuazfxplfngcaetoidw 25 mg tablet Discontinued 0 .ROUTE .COMPLEX 90 August 28, 2023 8:33am October 06, 2023 9:18am TAKE 1 TABLET DAILYStart: 12-25-2019 End: 19-59-3323hhuh 1 tablet by mouth once dailyHydrochlorothiazide 25 mg tablet Discontinued 25 MG PO Daily December 25, 2019 12:00am August 28, 2023 8:34am hydrocortisone 25 mg/ml topical cream (12 sources)CorticosteroidStart: 35-49-0274Orfyq: 64-32-1365pksldxossiilkf 2.5 % cream Indications: Other seborrheic dermatitis Apply (1g) thin layer to affected areas bid prn for flares 60 g 11 05/05/2024 ActiveIron Chews (3 sources)Start: 96-53-3042wlbv 1 mg by mouth once dailyIron Chews mg, Oral, Daily Start Date: 01/06/23 Status: Orderedlosartan potassium 100 mg oral tablet (20 sources)Angiotensin 2 Receptor BlockerStart: 52-79-2764bnoh 1 tablet by mouth once dailyStart: 08-17-2023 End: 98-18-3439elen 1 tablet by mouth once dailyLosartan 100 mg tablet Discontinued 0 .ROUTE .COMPLEX 90 August 17, 2023 9:15am October 06, 2023 9: 18am TAKE 1 TABLET BY MOUTH EVERY DAY for 90 daysStart: 12-25-2019 End: 68-12-2445zpzw 1 tablet by mouth once dailyLosartan 100 mg tablet Discontinued 100 MG PO Daily October 06, 2023 9:17am November 16, 2023 2: 50pmmecobalamin 1 mg chewable tablet (20 sources)Start: 92-88-4127Equtmlzfqoozdpp 1 MG chewable tablet .COMPLEX 10/06/2023 ActiveStart: 10-06-2023 End: 66-18-4171wxhd 1 tablet by mouth once dailymethylPREDNISolone (20 sources)CorticosteroidStart: 58-31-9150rkkqynPSAJGERwyddh (Medrol Dospak) 4 MG tablets Indications: Left Achilles tendinitis Follow schedule on MEDROL PACK package instructions to be used as directed 21 tablet 12/17/2023 Active metroNIDAZOLE 7.5 mg/ml topical lotion (20 sources)Nitroimidazole AntimicrobialStart: 63-94-7365Jbaojvohm 200 UNIT/ACT (20 sources)Start: 20-99-7008Kjgnctyqp 200 UNIT/ACT 1 spray in one nostril Nasally qd alternating nostrils quantity sufficient for 90 days Jan, ActiveStart: 57-43-9459Ewytjqekm 200 UNIT/ACT 1 spray in one nostril Nasally qd alternating nostrils for 90 days quantity sufficient for 90 days Jan, ActiveStart: 47-25-9312Yhrkapyds 200 UNIT/ACT 1 spray in one nostril Nasally qd alternating nostrils Jan, ActiveStart: 87-28-1060Oduxb: 02-20-2017 Miacalcin 200 UNIT/ACT 1 spray in one nostril Nasally qd alternating nostrils for 30 day(s) ActiveMiacalcin 200 UNIT/ACT 1 spray in one nostril Nasally qd alternating nostrils for 90 days Not-Taking/PRNMiacalcin 200 UNIT/ACT 1 spray in one nostril Nasally qd alternating nostrils for 90 days Not-Taking Miacalcin 200 UNIT/ACT 1 spray in one nostril Nasally qd alternating nostrils for 90 days ActiveMultivitamin preparation (3 sources)Multivitamin Activenabumetone 500 mg oral tablet (5 sources)Nonsteroidal Anti-inflammatory DrugStart: 00-59-0253cxzm 1 tablet by mouth twice daily24 hr oxybutynin chloride 5 mg extended release oral tablet (20 sources)Cholinergic Muscarinic AntagonistStart: 41-27-2359bdjv 1 mg by mouth once dailyoxybutynin 5 mg ER Tab mg tab(s), Oral, Daily, Refills(s) 0 Start Date: 01/02/22 Status: OrderedStart: 03-80-1189ugka 1 tablet by mouth once daily Ditropan XL 5 MG 1 tablet Orally Once a day Apr, Not-TakingProbiotic 10 Ultra Strength (1 source)Start: 12-96-4151Jwwetmzwi 10 Ultra Strength Oral, Daily, Refill(s) 0 Start Date: 01/14/24 Status: Orderedsalmon calcitonin 200 unt/actuat nasal spray (20 sources)CalcitoninStart: 10-17-2022 End: 99-26-4759Dzxlwyhsfv ([place]) 200/ACT USE 1 SPRAY IN ONE NOSTRIL DAILY (ALTERNATING NOSTRILS) for 90 Not-Taking/PRNCalcitonin ([place]) 200/ACT USE 1 SPRAY IN ONE NOSTRIL DAILY (ALTERNATING NOSTRILS) for 90 Not-TakingCalcitonin ([place]) 200/ACT USE 1 SPRAY IN ONE NOSTRIL DAILY (ALTERNATING NOSTRILS) for 90 ActiveTurmeric extract (17 sources)Start: 26-02-0231Ndoqtigl Oral, Daily Start Date: 01/06/23 Status: OrderedTurmeric ActivevalACYclovir 1000 mg oral tablet (20 sources)Herpesvirus Nucleoside Analog DNA Polymerase Inhibitor, Herpes Simplex Virus Nucleoside Analog DNA Polymerase Inhibitor, Herpes Zoster Virus Nucleoside Analog DNA Polymerase InhibitorStart: 31-48-8135Dmlhi: 11-16-2023 End: 22-31-0236Oguhbflnwsvj (Valtrex) 1 gram tablet Discontinued 0 PO .COMPLEX 4 November 16, 2023 12:00am November 16, 2023 2:54pm take 2 (1 Gram) tablets together at onset of symptoms orally and take 2 tablets 12 hours later;Start: 12-25-2019 End: 05-72-2108Rilgwzeankwu 1 gram tablet Discontinued December 25, 2019 12:00am December 25, 2019 8:08pmStart: 12-25-2019 End: 57-57-5684Wdwydspxcypb 1 gram tablet Discontinued TABLET December 25, 2019 12:00am December 25, 2019 8:08pmStart: 12-25-2019 End: 18-56-5972Gjeejrxpqypt Discontinued TABLET December 25, 2019 12:00am December 25, 2019 8:08pmvalACYclovir HCl 1 GM TAKE 2 TABLETS BY MOUTH AT ONSET OF SYMPTOMS, THEN TAKE 2 TABLETS TWELVE HOURS LATER. for 1 prn Not-Taking/PRN valACYclovir HCl 1 GM TAKE 2 TABLETS BY MOUTH AT ONSET OF SYMPTOMS, THEN TAKE 2 TABLETS TWELVE HOURS LATER. for 1 prn Activevitamin B12 (7 sources)Vitamin B78Qxoae: 21-14-6827Ambzovi B12 Start Date: 01/06/23 Status: OrderedStart: 19-80-9515Pajgooy B12 1000 MCG 1 tablet Orally Thursday - May, ActiveVitamin B12 1000 MCG (20 sources)Start: 74-70-3821Ueqhzhv B12 1000 MCG 1 tablet Orally Thursday - May, ActiveStart: 16-32-8613Uphkb: 66-25-7170Rlsgmzf B12 1000 MCG 1 tablet Orally 5 days a week May, ActiveVitamin D (3 sources)Start: 61-80-9160Bqcwvit D International_Unit, Oral, BID Start Date: 01/06/23 Status: OrderedVitamin D 4000 Unit (20 sources)take 1 capsule by mouth once dailytake 1 capsule by mouth once daily Vitamin D 4000 Unit 1 capsule Orally qd Active Completed/Discontinued Medications MedicationDrug Class(es)DatesSig (Normalized)Sig (Original)acetaminophen 500 mg oral tablet (6 sources)Start: 64-63-5485sene 2 tablets by mouth every eight hours for pain Acetaminophen 500 MG 2 tablets for pain Orally every 8 hrs for 30 days Med to Bed Upon Discharge DOS: 11/04/2022 Sep, Not-TakingALPRAZolam 0.5 mg oral tablet (20 sources)BenzodiazepineStart: 06-26-2022 End: 91-28-5230urdi 1 tablet by mouth twice daily as needed for anxiety Alprazolam 0.5 mg tablet Discontinued 0.5 MG PO Twice daily as needed for Anxiety 60 January 14, 2024 12:08pm July 06, 2024 2:53pmStart: 01-24-2020 Xanax Oral, As Directed, Refills(s) 0 Start Date: 01/24/20 Status: OrderedStart: 12-25-2019 End: 83-05-3881fpkw 1 tablet by mouth every six hours as needed for anxiety Alprazolam 0.5 mg tablet Discontinued 0.5 MG PO Q6H as needed for Anxiety December 25, 2019 12:00am July 07, 2023 9:55amStart: 93-46-7637ywzq 1 tablet by mouth every twelve hoursXanax 0.5 MG 1 tablet Orally Twice a day Nov, Activeamoxicillin 500 mg oral tablet (20 sources)Penicillin-class AntibacterialStart: 12-14-2023 End: 53-17-7492jeam 4 tablets by mouth onceAmoxicillin 500 mg tablet Discontinued 2000 MG PO once 4 December 14, 2023 12:00am October 17, 2024 11:08amStart: 70-62-2178Fxmrfgqrnyo 500 MG 2 grams 1hr before dental procedure Orally as directed for Nov, Not-Taking/PRNStart: 52-11-1571ifvq 1 tablet by mouth every twelve hoursAmoxicillin 875 MG 1 tablet Orally Twice a day for 14 days Aug, Not-Takingaspirin 81 mg delayed release oral tablet (6 sources)Platelet Aggregation Inhibitor, Nonsteroidal Anti-inflammatory Drug Start: 33-53-2481bjwq 1 tablet by mouth every twelve hoursAspirin 81 81 MG 1 tablet Orally Twice a day for 35 days Med to Bed Upon Discharge DOS: 11/04/2022 Sep, Not-TakingStart: 19-42-5099nedj 1 tablet by mouth twice daily Aspirin 81 81 MG 1 tablet Orally Twice a day for 35 days Med to Bed Upon Discharge DOS: 11/04/2022 Sep, Not-Raxlak40 hr buPROPion hydrochloride 100 mg extended release oral tablet (20 sources)AminoketoneStart: 07-07-2023 End: 02-11-0733esva 1 tablet by mouth once dailyBupropion Hcl 100 mg tablet sustained-release 12 hr Discontinued 100 MG PO Daily July 07, 2023 9:33am October 06, 2023 9:09amStart: 07-07-2023 End: 89-02-7428wnnt 1 tablet by mouth every twelve hoursBupropion Hcl 100 mg tablet sustained-release 12 hr Discontinued MG PO July 07, 2023 12:00am July 062023 9:34amStart: 55-87-6922wcyo 1 tablet by mouth once dailyWellbutrin SR 100 mg Tab-ER 100 mg = 1 tab(s), Oral, Daily Start Date: 01/06/23 Status: OrderedStart: 12-27-2019 End: 81-32-3078ubqy 1 tablet by mouth once daily in the morningBupropion Hcl 150 mg Tablet Extended Release 24 Hr Discontinued 150 MG PO Every morning December 27, 2019 1:00am July 07, 2023 9:26amStart: 12-25-2019 End: 84-17-9941dclq 1 tablet by mouth once dailyBupropion Hcl 300 mg tablet extended release 24 hr Discontinued 300 MG PO Daily December 25, 2019 12:00am December 27, 2019 10:40amCaltrate 600+D3 600-800 MG-UNIT (15 sources)take 600-800 tablets by mouth once dailyCaltrate 600+D3 600-800 MG- UNIT 1 tablet with a meal Orally Once a day Not-Takingtake 600-800 tablets by mouth once dailyCaltrate 600+D3 600-800 MG-UNIT 1 tablet with a meal Orally Once a day Activecefadroxil 500 mg oral capsule (6 sources)Cephalosporin AntibacterialStart: 39-32-4653djzn 1 capsule by mouth every twelve hoursCefadroxil 500 MG 1 tablet Orally every 12 hrs for 7 days Med to Bed Upon Discharge DOS: 11/04/2022 Sep, Not-Takingcefdinir 300 mg oral capsule (20 sources)Cephalosporin AntibacterialStart: 12-27-2019 End: 97-26-6863mdun 1 capsule by mouth twice dailyCefdinir 300 mg capsule Discontinued 300 MG PO Twice daily 3 December 27, 2019 1:00am October 17, 2022 11:18amCo-Enzyme Q-10 100 mg (20 sources)Start: 76-67-3287suzj 1 capsule by mouth once dailyCo-Enzyme Q-10 100 mg 1 capsule with a meal Orally Once a day Apr, Not-TakingStart: 25-22-7968Queuh: 39-62-3682rzky 1 capsule by mouth once dailyCo-Enzyme Q-10 100 mg 1 capsule with a meal Orally Once a day Apr, Activedexamethasone phosphate 4 mg/ml injectable solution (9 sources)CorticosteroidStart: 04-05-2024 End: 50-72-1349Ydudpynsgmvii Sodium Phosphate 4 mg/mL solution Discontinued 4 MG INFILTRATN every week April 05, 2024 1:00am July 06, 2024 2:34pmStart: 02-25-2024 End: 65-07-3410mwgPTVCWlyfce (Decadron) 4 MG/ML injection Indications: Left Achilles tendinitis 1 mL (4 mg) by Other route every 6 (six) hours To apply per physical therapy to heel 120 mL 02/25/2024 03/26/2024 Activedocusate sodium 50 mg / sennosides, shelter 8.6 mg oral tablet (6 sources)Start: 13-94-6953izca 2 tablets by mouth every twenty-four hours Senokot S 8.6-50 MG 2 tablets Orally Once a day for 30 days Med to Bed Upon Discharge DOS: 11/04/2022 Sep, Not-Takingesomeprazole 40 mg delayed release oral capsule (20 sources)Proton Pump InhibitorStart: 12-25-2019 End: 97-87-4519otli 1 capsule by mouth once dailyEsomeprazole Magnesium 40 mg capsule,delayed release(DR/EC) Discontinued 40 MG PO Daily December 25, 2019 12:00am July 07, 2023 9:27amtake 1 capsule by mouth once daily as neededNexIUM 40 1 capsule Orally Once a day Not-Taking/PRNtake 1 capsule by mouth once daily NexIUM 40 1 capsule Orally Once a day Not-Takingtake 1 capsule by mouth once dailyNexIUM 40 1 capsule Orally Once a day Activetake 1 capsule by mouth once dailyNexIUM 40 1 capsule Orally Once a day for 90 days Activetake 1 capsule by mouth every other dayNexIUM 40 1 capsule Orally qod for 90 days Activetake 1 capsule by mouth every other dayNexIUM 40 1 capsule Orally qod Activetake 1 capsule by mouth every other dayNexIUM 40 1 capsule Orally qod Not-Taking meloxicam 15 mg oral tablet (20 sources)Nonsteroidal Anti-inflammatory DrugStart: 03-04-2023 End: 32-30-3935psai 1 tablet by mouth once dailyMeloxicam 15 mg tablet Discontinued 15 MG PO Daily November 06, 2023 11:12am January 14, 2024 11:32ammorphine sulfate 15 mg extended release oral tablet (6 sources)Opioid AgonistStart: 28-42-0608jfhs 1 tablet by mouth every twelve hours for painMorphine Sulfate ER 15 MG 1 tablet for breakthrough pain only Orally every 12 hrs for 5 days Med toBed Upon Discharge DOS: 11/04/2022 Sep, Not-Takingomeprazole 20 mg delayed release oral capsule (20 sources)Proton Pump InhibitorStart: 11-04-2022 End: 27-54-0888ckiq 1 capsule by mouth once dailyOmeprazole 20 mg Capsule,Delayed Release(Dr/Ec) Discontinued 20 MG PO Daily November 04, 2022 12:00am July 07, 2023 9:28amondansetron 8 mg oral tablet (6 sources)Serotonin-3 Receptor AntagonistStart: 82-62-4829hjqr 1 tablet by mouth three times daily as needed for nauseaOndansetron HCl 8 MG 1 tablet as needed for nausea Orally Three times a day for 10 days Med to Bed Upon Discharge DOS: 11/04/2022 Sep, Not-TakingoxyCODONE hydrochloride 5 mg oral tablet (6 sources)Opioid AgonistStart: 31-45-9824opit 1 tablet by mouth every four hours as needed for painoxyCODONE HCl 5 MG 1 tablet as needed for pain Orally every 4 hrs for 10 days Med to Bed Upon Discharge DOS: 11/04/2022 Sep, Not-Takingpantoprazole 20 mg delayed release oral tablet (6 sources)Proton Pump InhibitorStart: 94-55-8994ajrn 1 tablet by mouth every twenty-four hoursProtonix 20 MG 1 tablet Orally Once a day for 35 days Med to Bed Upon Discharge DOS: 11/04/2022 Sep, Not-Takingpolyethylene glycol 3350 37264 mg powder for oral solution (6 sources)Osmotic LaxativeStart: 45-16-3830WrvtEmh 17 GM 1 packet mixed with 8 ounces of fluid Orally Once a day for 7 days Med to Bed Upon Discharge DOS: 11/04/2022 Sep, Not-Takingprobiotic Provitalize (8 sources)Start: 01-14-2024 End: 77-83-4035kosjdcgra Provitalize Discontinued PO January 14, 2024 1:00am July 06, 2024 2:36pmStart: 60-54-2367udgkpdksz Provitalize Active PO January 14, 2024 12:00amtiZANidine 4 mg oral tablet (20 sources)Central alpha-2 Adrenergic AgonistStart: 12-25-2019 End: 90-09-6470ilqw 1 tablet by mouth every six hours as needed for muscle spasmsTizanidine 4 mg tablet Discontinued 4 MG PO Q6H as needed for Muscle Spasm December 25, 2019 12:00am October 17, 2022 11:18amStart: 64-63-2608kjrFCWsj hydrochloride 50 mg oral tablet (6 sources)Opioid AgonistStart: 32-51-3340cnth 1 tablet by mouth every six hours as needed for paintraMADol HCl 50 MG 1 tablet as needed for pain Orally every 6 hrs for 10 days Med to Bed Upon Discharge DOS: 11/04/2022 Sep, Not-Taking triamcinolone acetonide 40 mg/ml injectable suspension (20 sources)CorticosteroidStart: 86-28-5653Rqalcov-40 Feb, 40 mgStart: 57-95-4460Clrxveq-40 Feb, 120 mgStart: 40-40-7980Tddmpff -40 mg Mar, 20 mgStart: 82-26-0385Yetmosg -40 mg June, 20 mgStart: 01-12-2019 Kenalog -40 mg Dec, 40 mgVitamin C 500 MG (9 sources)Start: 70-06-4464muls 1 capsule by mouth once dailyVitamin C 500 MG 1 capsule Orally Once a day Aug, Not-TakingStart: 44-04-8992qeru 1 capsule by mouth once dailyVitamin C 500 MG 1 capsule Orally Once a day Aug, ActiveStart: 19-14-4508zswv 1 capsule by mouth once dailyVitamin C 500 MG 1 capsule Orally Once a day for 30 days Aug, Active Problems Active Problems Problem ClassificationProblemDateDocumented DateEpisodic/ChronicAbdominal pain (20 sources)Unspecified abdominal pain; Translations: [Right flank pain]Onset: 12-18-2020 Resolved: 86-12-9332AvdxewydJjtypcw on above:Problem List clean-up per request of Phys. EHR CmteAnxiety disorders (20 sources)Anxiety; Translations: [Anxiety disorder, unspecified]Onset: 12-18-2020 Resolved: 47-06-8176JmiscskYmxwldnk of urinary tract (20 sources)Kidney stone; Translations: [Calculus of kidney]Onset: 12-18-2020 Resolved: 15-21-9504NamhpldxMzmfdct on above:Problem List clean-up per request of Phys. EHR CmteDeficiency and other anemia (12 sources)Anemia, unspecified; Translations: [Anemia, unspecified]Onset: 12-18-2020 Resolved: 57-91-1089PejvukiiBmzyxwmtvb and other anemia (14 sources)Anemia; Translations: [Anemia, unspecified]25-81-1632Dudfyhvq Diabetes mellitus without complication (20 sources)Hyperglycemia, unspecified; Translations: [Hyperglycemia]Onset: 03-22-2021 Resolved: 83-01-9207LxhrfrgbJsxqexctf of lipid metabolism (20 sources)Hyperlipidemia; Translations: [Hyperlipidemia, unspecified]Onset: 03-22-2021 Resolved: 57-71-3369YvtnioyQjnqsnjxgy disorders (20 sources)Gastroesophageal reflux disease; Translations: [Gastro-esophageal reflux disease without esophagitis]Onset: 03-22-2021 Resolved: 73-30-0218VqvttpnXrgazbstu hypertension (20 sources)Hypertensive disorder; Translations: [Essential (primary) hypertension]Onset: 03-22-2021 Resolved: 09-64-9156MlmnmvjYggsxkzvgxolg and screening for infectious disease (2 sources)Encounter for immunization; Translations: [Need for prophylactic vaccination and inoculation against influenza]78-50-5333OioppczzQtrsbsybxa disorders (20 sources)Menopausal flushing; Translations: [Menopausal and female climacteric states]ChronicMycoses (5 sources)Pain in toe; Translations: [Tinea unguium]97-87-2594Vmcilsai Nonspecific chest pain (1 source)Chest pain, unspecifiedEpisodicNutritional deficiencies (20 sources)Vitamin D deficiency; Translations: [Vitamin D deficiency, unspecified]Onset: 03-22-2021 Resolved: 11-79-8540GwvcnirOrfqcghxlbx deficiencies (20 sources)Deficiency of other specified B group vitamins; Translations: [Cobalamin deficiency]Onset: 12-18-2020 Resolved: 36-77-5479MbwwnnlmBurmauevzaluwb (20 sources)Arthritis; Translations: [Unspecified osteoarthritis, unspecified site]Onset: 12-18-2020 Resolved: 31-53-3482CxuphhpUycjagouyfqp (17 sources)Osteoporosis; Translations: [Other osteoporosis without current pathological fracture]ChronicOther acquired deformities (12 sources)Contracture of joint of left ankle; Translations: [Contracture, left ankle]21-93-5669ZehjlufDhyrl aftercare (9 sources)Patient encounter status; Translations: [Aftercare following joint replacement surgery]ChronicOther aftercare (2 sources)Aftercare following joint replacement surgeryChronicOther aftercare (5 sources)Other care home (current) drug therapy; Translations: [Other care home (current) drug therapy]Onset: 03-22-2021 Resolved: 25-00-9224EbthvpzbQngxc and unspecified benign neoplasm (2 sources)Melanocytic nevus of trunk; Translations: [Melanocytic nevi of trunk] 20-25-0802PjincwtjBspse bone disease and musculoskeletal deformities (4 sources)Other specified disorders of bone density and structure, unspecified site; Translations: [Disorder of bone and cartilage, unspecified]Onset: 03-22-2021 Resolved: 04-00-1684SsetgqumJowdx bone disease and musculoskeletal deformities (17 sources)Disorder of bone; Translations: [Other specified disorders of bone density and structure, right ankle and foot]31-59-2187HsqhxfyqDzoai bone disease and musculoskeletal deformities (13 sources)Osteopenia; Translations: [Other specified disorders of bone density and structure, unspecified site]50-75-3563RcuboemgDogmz connective tissue disease (20 sources)Hip joint prosthesis present; Translations: [Presence of right artificial hip joint]79-65-9067CipirdsIudoi connective tissue disease (20 sources)History of total hip arthroplasty; Translations: [Presence of right artificial hip joint]54-31-6068WdczsjaQjeik connective tissue disease (5 sources)Presence of right artificial hip jointChronicOther connective tissue disease (7 sources)Pain in right foot; Translations: [PAIN IN RIGHT FOOT]Onset: 08-08-2021 Resolved: 78-45-1270DytqdhdcIwvju connective tissue disease (7 sources)Right rotator cuff syndrome; Translations: [Unspecified rotator cuff tear or rupture of right shoulder, not specified as traumatic]05-56-1455Waamcvkd Other connective tissue disease (4 sources)Unspecified rotator cuff tear or rupture of right shoulder, not specified as traumatic; Translations: [Disorders of bursae and tendons in shoulder region, unspecified]EpisodicOther connective tissue disease (3 sources)Bicipital tendinitis, right shoulder; Translations: [Bicipital tenosynovitis]EpisodicOther connective tissue disease (1 source)Cramp and spasmEpisodicOther connective tissue disease (12 sources)Disorder of rotator cuff; Translations: [Unspecified rotator cuff tear or rupture of right shoulder, not specified as traumatic]65-37-8027Jromrarv Other connective tissue disease (15 sources)Biceps tendinitis; Translations: [Bicipital tendinitis, right shoulder]13-33-6715TrmjnvilHftnb connective tissue disease (14 sources)Left achilles tendonitis; Translations: [Achilles tendinitis, left leg]86-38-2589RnacubvzBxfvh connective tissue disease (3 sources)Achilles tendinitis, left leg; Translations: [Achilles bursitis or tendinitis]05-97-6655JihtzgfkVeghr diseases of bladder and urethra (20 sources)Overactive bladder; Translations: [Other specified disorders of bladder]54-30-0235OxkqmucMhnet diseases of kidney and ureters (5 sources)Hydronephrosis; Translations: [Hydronephrosis with renal and ureteral calculous obstruction]02-97-4576VymimtsiOrfsg diseases of kidney and ureters (20 sources)Hydronephrosis with renal and ureteral calculous obstruction; Translations: [Hydronephrosis with urinary obstruction due to ureteral calculus] 48-26-3244CzwlxdhpXhbdxkq on above:Problem List clean-up per request of Phys. EHR CmteOther gastrointestinal disorders (20 sources)Constipation; Translations: [Constipation, unspecified]EpisodicOther gastrointestinal disorders (20 sources)Dysphagia; Translations: [Dysphagia, unspecified]EpisodicOther gastrointestinal disorders (6 sources)Dysphagia, unspecified; Translations: [DYSPHAGIA UNSPECIFIED]Onset: 91-25-9156IpaknjjuPgdgb inflammatory condition of skin (2 sources)Rosacea; Translations: [Other rosacea]41-38-0610JlzzpevEvgdx inflammatory condition of skin (2 sources)Seborrheic dermatitis; Translations: [Other seborrheic dermatitis] 38-82-2038VwlevzixGbvbs liver diseases (20 sources)Steatosis of liver; Translations: [Fatty (change of) liver, not elsewhere classified]ChronicOther liver diseases (1 source)Fatty (change of) liver, not elsewhere classifiedOnset: 03-22-2021 Resolved: 47-63-8020IcptggjDoldm lower respiratory disease (20 sources)Multiple nodules of lung; Translations: [Other nonspecific abnormal finding of lung field]EpisodicOther lower respiratory disease (4 sources)Other nonspecific abnormal finding of lung fieldEpisodicOther lower respiratory disease (15 sources)Nodule of lung; Translations: [Solitary pulmonary nodule]07-07-2023 EpisodicOther lower respiratory disease (7 sources)Solitary pulmonary nodule; Translations: [Solitary pulmonary nodule] Onset: 884634-53-0187AukzhqadLfgyt lower respiratory disease (5 sources)Cough; Translations: [Acute cough]42-51-5946CmexrmqwUofvp non- traumatic joint disorders (2 sources)Pain in right hipOnset: 03-22-2021 Resolved: 19-85-6586OjtldhkeEntkr non-traumatic joint disorders (5 sources)Pain in unspecified hip; Translations: [PAIN IN UNSPECIFIED HIP] Onset: 01-30-3613QhmhjtttMcnkj non-traumatic joint disorders (2 sources)Pain in right shoulderEpisodicOther nutritional; endocrine; and metabolic disorders (20 sources)Weight decreased; Translations: [Abnormal weight loss]EpisodicOther nutritional; endocrine; and metabolic disorders (4 sources)Abnormal weight loss; Translations: [Weight loss R63.4]Onset: 12-18-2020 Resolved: 31-50-7981JrjerdxaYnksq nutritional; endocrine; and metabolic disorders (1 source)Body mass index (BMI) 26.0-26.9, adultEpisodicOther skin disorders (13 sources)Excessive sweating; Translations: [Generalized hyperhidrosis] 25-32-0327QpvuclwaQoccc skin disorders (1 source)Generalized hyperhidrosis; Translations: [Generalized hyperhidrosis] 28-29-5524BcagxseiKaxzi skin disorders (2 sources)Seborrheic keratosis; Translations: [Other seborrheic keratosis] 42-28-1405CxaffjbrWxqsb skin disorders (2 sources)Lentiginosis; Translations: [Other melanin hyperpigmentation] 37-29-3990SfzsyzvzSvdsp skin disorders (2 sources)Actinic keratosis; Translations: [Actinic keratosis]05-05-2024 EpisodicOther upper respiratory disease (4 sources)Allergic rhinitis; Translations: [Allergic rhinitis, unspecified] 68-49-9404KyxsuqqXxndk upper respiratory disease (1 source)Allergic rhinitis, unspecified; Translations: [Allergic rhinitis, cause unspecified]25-55-2297GpsakwdJlsttzpj codes; unclassified (20 sources)Hypoxia; 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]ChronicResidual codes; unclassified (20 sources)Obstructive sleep apnea syndrome; Translations: [Obstructive sleep apnea (adult) (pediatric)]18-85-3187BkyovyhDyqzxpgu codes; unclassified (3 sources)Obstructive sleep apnea (adult) (pediatric)Onset: 05-07-2021 Resolved: 41-75-8349NbefjhrAgdtgyve codes; unclassified (8 sources)Sleep apnea, unspecified; Translations: [Obstructive sleep apnea (adult)(pediatric)]Onset: 06-26-2021 Resolved: 63-22-9350WnjvfwuSrprijuw codes; unclassified (12 sources)Sleep apnea; Translations: [Sleep apnea, unspecified]10-06-2023 ChronicResidual codes; unclassified (20 sources)Amnesia; Translations: [Other amnesia]EpisodicSpondylosis; intervertebral disc disorders; other back problems (7 sources)Cervicalgia; Translations: [CERVICALGIA]Onset: 11-79-1964Rdsfkfiz Sprains and strains (1 source)Strain of muscle, fascia and tendon of lower back, initial encounter EpisodicThyroid disorders (20 sources)Thyroid nodule; Translations: [Nontoxic single thyroid nodule]Onset: 57-86-4563Nribjgh Past or Other Problems Problem ClassificationProblemDateDocumented DateEpisodic/ChronicCrushing injury or internal injury (4 sources)Crushing injury of right foot, subsequent encounter; Translations: [CRUSHING INJURY RIGHT FOOT SUBSQT]Onset: 25-52-3970UqcgobaxGtxqaaks of lower limb (10 sources)Displaced fracture of second metatarsal bone, right foot, subsequent encounter for fracture with routine healing; Translations: [Nondisplaced fracture of second metatarsal bone, right foot, initial encounter for closed fracture]Onset: 43-46-9911QesfecyhHtquiwsvzfvlf symptoms and ill-defined conditions (2 sources)Hematuria, unspecified; Translations: [Nocturia]Onset: 12-18-2020 Resolved: 61-98-5929PwspxvysZjftmdac; including migraine (1 source)Headache; including migraineOther connective tissue disease (1 source)Trigger finger, right ring fingerOnset: 04-19-2021 Resolved: 46-67-4510OuvzqtdnVuuxi connective tissue disease (1 source)Pain in right handOnset: 04-19-2021 Resolved: 11-68-7533XioawhodNxmjk gastrointestinal disorders (1 source)Constipation, unspecifiedOnset: 12-28-2020 Resolved: 36-99-4189LgwpxmigRxidt injuries and conditions due to external causes (1 source)Other injury of unspecified body region, initial encounterOnset: 10-02-2021 Resolved: 04-52-4110LcjkeoupGmigq screening for suspected conditions (not mental disorders or infectious disease) (5 sources)Encounter for screening for osteoporosis; Translations: [Abnormal findings on diagnostic imaging ofother parts of musculoskeletal system]Onset: 78-66-7456Hkiwjamd Results Test NameValueInterpretationReference RangeFacilityCT chest wo conon 10-20-2024 CT chest wo [facility] [address] [address] [address] Scan Report Signed Patient: Teagan Gonsales MR#: [id number] : 1955 Acct:[id number] Age/Sex: 69 / F ADM Date: 10/20/24 Loc: CT Room: Type: [facility] Attending Dr: Roma Pritchard DO Copies to: Roma Pritchard DO Ordering Provider: Roma Pritchard DO Date of Service: 10/20/24 CT/CT chest wo con: R91.1 - Solitary pulmonary nodule CT CHEST WITHOUT IV CONTRAST: CLINICAL HISTORY: Pulmonary nodule follow-up COMPARISON: CT chest 10/22/2023 and 01/11/2022 TECHNIQUE: Spiral images were obtained through the chest without IV contrast. This CT exam was performed using one or more following dose reduction techniques: Automated exposure control, adjustment of the mA and/or kV according to patient size, or use of iterative reconstruction technique. FINDINGS: Mediastinum:Thoracic aorta appears normal in caliber. Pulmonary trunk appears nondilated. No pericardial effusion or lymphadenopathy. The esophagus is grossly unremarkable. Lungs:Mild lung scarring. No consolidation pneumothorax or pleural effusion. Stable areas of somewhat nodular groundglass is seen involving the right lung. No suspicious pulmonary nodule is seen on today's study. Abd:No acute process. Hepatic steatosis. Soft tissues/Bones: Soft tissues demonstrate no acute process. Osseous structures demonstrate degenerative change. CT/CT chest wo con IMPRESSION: Stable areas of somewhat nodular groundglass involving the right lung since 2021 suggesting a benign process. No suspicious pulmonary nodule is seen on today's study. Impression dictated by: Martin Ruano Jr., D.ONkechi 10/20/2024 9:35 AM Dictation Location: [place] [address] Transcribed By: [facility] 10/20/24 0935 Dictated By: Martin Ruano Jr, DO 10/20/24 0928 Signed By: 10/20/24 0935NoNorth [facility] Physician YuqsqQ7Y with Estimated Average Gluon 06-37-5543Trlheen [Mass/Vol]111 mg/dLNoNorth Carolina Specialty Hospital Physician GroupComment on above:Result Comment: PERFORMED BY: [address] [place] [address] PATHOLOGIST PHYSICIAN INTERNIST RELL KENNY M.D.Performed By: #### DINA, [id number], LIPID, FE and TIBC, A1C WTH eA ####[facility] [address] [place] [address] [place] Alanine aminotransferase [Enzymatic activity/volume] in Serum or PlasmaOrdered By: Roma Pritchard on 44-87-7570EGA [Catalytic activity/Vol]22 U/LNormal7-52 [facility] TroyComment on above:Performed By: #### CMP, CBC #### [facility] [address] [place] [address] [place]Albumin [Mass/volume] in Serum or Plasma by Bromocresol green (BCG) dye binding methoOrdered By: Roma Pritchard on 86-84-5530Rcaybco BCG dye [Mass/Vol]4.6 g/dL3.5-5.7FTrumbull Memorial HospitalAlkaline phosphatase [Enzymatic activity/volume] in Serum or PlasmaOrdered By: Roma Pritchard on 36-58-4211OUD [Catalytic activity/Vol]70 U/HIhnobn57-723IcjoromwyKettering Health TroyComment on above:Result Comment: PERFORMED BY: [place] [address] PATHOLOGIST PHYSICIAN INTERNIST RELL KENNY M.D.Performed By: #### CMP, CBC #### [place] [address] USAAspartate aminotransferase [Enzymatic activity/volume] in Serum or PlasmaOrdered By: Roma Pritchard on 97-44-3731CAW [Catalytic activity/Vol]18 U/YWprqfe43-85LhkeuoxanKettering Health TroyComment on above: Performed By: #### CMP, CBC #### [facility] [address] [place] [address] USABasophils [#/volume] in Blood by Automated countOrdered By: Roma Pritchard on 37-44-0555Kuuyddpqt (Bld) [#/Vol]0.0 10*3/uLNormal0.0-0.2 [facility] TroyComment on above:Result Comment: PERFORMED BY: [place] [address] PATHOLOGIST PHYSICIAN INTERNIST RELL KENNY M.D.Performed By: #### CMP, CBC #### [place] [address] USABasophils/100 leukocytes in Blood by Automated count Ordered By: Roma Pritchard on 45-36-4803Abbdtfflo/100 WBC (Bld)0.4 %Normal. [facility] TroyComment on above:Performed By: #### CMP, CBC #### [place] [address] USABilirubin.total [Mass/volume] in Serum or PlasmaOrdered By: Roma Pritchard on 90-69-1737Yxdwbakmm [Mass/Vol]0.4 mg/dLNormal0.3-1.0 [facility] TroyComment on above:Performed By: #### CMP, CBC #### [place] [address] USABlood estimated average glucose determination by estimation from glycated hemoglobinOrdered By: Roma Pritchard on 27-78-7677Emabqxg glucose Estimated from glycated hemoglobin (Bld) [Mass/Vol]111 mg/dLKettering Health TroyCalcium [Mass/volume] in Serum or PlasmaOrdered By: Roma Pritchard on 11-98-9046Oylocgl [Mass/Vol]9.4 mg/dLNormal8.6-10.3FTrumbull Memorial HospitalComment on above:Performed By: #### CMP, CBC #### [place] [address] USACarbon dioxide, total [Moles/volume] in Serum or Plasma Ordered By: Roma Pritchard on 11-57-3579BZ2 [Moles/Vol]29.3 mmol/FSgmrbg28.0-31.0 [facility] TroyComment on above:Performed By: #### CMP, CBC #### [place] [address] USAChloride [Moles/volume] in Serum or PlasmaOrdered By: Roma Pritchard on 29-67-3578Nrkaidnv [Moles/Vol]104 mmol/XEpllup29-354CddoxzyfvKettering Health TroyComment on above:Performed By: #### CMP, CBC #### [facility] [address] [place] [address] USACholesterol [Mass/volume] in Serum or PlasmaOrdered By: Roma Pritchard on 12-41-0699Bzntjkcehke [Mass/Vol]172 mg/hTUmqdxb395-024HmrtgkdhkKettering Health TroyComment on above:Chol less than 200 mg/dl low riskChol 201-239 mg/dl borderline riskChol 240 mg/dl and greater high riskResult Comment: Chol less than 200 mg/dl low risk Chol 201-239 mg/dl borderline risk Chol 240 mg/dl and greater high riskPerformed By: #### DINA, [id number], LIPID, FE and TIBC, A1C WTH eA #### [facility] [address] [place] [address] USACholesterol in HDL [Mass/volume] in Serum or PlasmaOrdered By: Roma Pritchard on 30-65-0400Mnerkgxgilu in HDL [Mass/Vol]60 mg/hYPcgubb39-28 [facility] TroyComment on above:HDL CHOL ATP-III CLASSIFICATION Cardiovascular RiskHDL > or equal to 60 mg/dL LOWHDL < 40 mg/dL HIGHResult Comment: HDL CHOL ATP-III CLASSIFICATION Cardiovascular Risk HDL > or equal to 60 mg/dL LOW HDL < 40 mg/dL HIGHPerformed By: #### DINA, [id number], LIPID, FE and TIBC, A1C WTH eA #### [facility] [address] [place] [address] USACholesterol in LDL Calc [Mass/Vol]Ordered By: Roma Pritchard on 71-81-8595Cfpszainpiz in LDL [Mass/Vol]74 mg/dL0-100[facility] TroyComment on above:LDL ATP III CLASSIFICATIONLDL less than 100 mg/dL OptimalLDL 100-129 mg/dL Near or above oigucicJVO059-985 mg/dL Borderline highLDL 160-189 mg/dL HighLDL greater than 189 mg/dL Very highCholesterol in VLDL Calc [Mass/Vol]Ordered By: Roma Pritchard on 94-56-9583Doajckvzezj in VLDL [Mass/Vol]38 mg/dLKettering Health TroyComplete Blood Count Auto Diffon 75-97-5845Knmz Corpuscular HGB Conc33.0 g/cINzwcrp13.0-35.0The [facility] Physician [facility] HospitalComment on above:Performed By: #### CMP, CBC #### [place] [address] USANRBC%0.1 /100{WBC}Normal0-0.5The [facility] Physician [facility] Comment on above:Performed By: #### CMP, CBC #### [place] [address] USAWhite Blood Count6.7 [CFU]/mLNormal3.8-11.6The [facility] Physician [facility] HospitalComment on above:Performed By: #### CMP, CBC #### [place] [address] USAComprehensive Metabolic Panelon 66-28-4653Qtyihpn [Mass/Vol]4.6 g/dLNormal3.5-5.7The [facility] Physician [facility] HospitalComment on above: Performed By: #### CMP, CBC #### [place] [address] USAGFR/1.73 sq M.predicted MDRD (S/P/Bld) [Vol rate/Area] mL/min/{1.73_m2}NormalThe Wilkes-Barre General HospitalComment on above:Performed By: #### CMP, CBC #### [place] [address] USACreatinine [Mass/volume] in Serum or PlasmaOrdered By: Roma Pritchard on 10-10-9141Fevdlvpmuc [Mass/Vol]0.76 mg/dLNormal0.60-1.20 [facility] TroyComment on above:Performed By: #### CMP, CBC #### [place] [address] USAEosinophils [#/volume] in Blood by Automated countOrdered By: Roma Pritchard on 18-78-8726Iotzygagneb (Bld) [#/Vol]0.1 10*3/uLNormal0.0-0.45 [facility] TroyComment on above:Performed By: #### CMP, CBC #### [facility] [address] [place] [address] USAEosinophils/100 leukocytes in Blood by Automated count Ordered By: Roma Pritchard on 27-32-0577Ncqdiwaiufu/100 WBC (Bld)2.2 %Normal. [facility] TroyComment on above:Performed By: #### CMP, CBC #### [facility] [address] [place] [address] USAErythrocyte distribution width [Ratio] by Automated count Ordered By: Roma Pritchard on 50-43-4419Uctayouezsc distribution width (RBC) [Ratio]13.5 %Nvzldy63.9-15.3FTrumbull Memorial HospitalComment on above: Performed By: #### CMP, CBC #### [place] [address] USAErythrocytes [#/volume] in Blood by Automated countOrdered By: Roma Pritchard on 51-84-0995CJF (Bld) [#/Vol]4.23 10*6/uLNormal3.60-5.00 [facility] TroyComment on above:Performed By: #### CMP, CBC #### [place] [address] USAFerritin [Mass/volume] in Serum or PlasmaOrdered By: Roma Pritchard on 20-39-8843Ijybylua [Mass/Vol]45.3 ng/kQQotbmv72.0-306.8[facility] TroyComment on above:Performed By: #### DINA, [id number], LIPID, FE and TIBC, A1C WTH eA #### [facility] [address] [place] [address] USAFolate [Mass/volume] in Serum or PlasmaOrdered By: Roma Pritchard on 33-38-3670Mpkuxg [Mass/Vol]21.9 ng/mL>5.9[facility] TroyComment on above:Folate reference range: >5.9 ng/mlThe WHO technical consultation on folate and vitamin j88vikyxdxlqace has determined that folate concentrations lessthan 4 ng/ml are considered deficient.Glucose [Mass/volume] in Serum or PlasmaOrdered By: Roma Pritchard on 63-14-5295Guxmqel [Mass/Vol]111 mg/kZCpuk11-095VuwylyzhxKettering Health TroyComment on above:ADA recommended reference rangeRandom Glucose Reference Range is dependent on time and content of last meal. Glucose of more than 200 mg/dL in a nonstressed, ambulatory subject supports the diagnosisof Diabetes Mellitus.Result Comment: Random Glucose Reference Range is dependent on time and content of last meal. Glucose of more than 200 mg/dL in a nonstressed, ambulatory subject supports the diagnosis of Diabetes Mellitus. ADA recommended reference rangePerformed By: #### CMP, CBC #### [facility] [address] [place] [address] USAHematocrit [Volume Fraction] of Blood by Automated count Ordered By: Roma Pritchard on 14-02-0417Nilgbrtmkd (Bld) [Volume fraction]39.9 % Jhkhma41.0-46.4FTrumbull Memorial HospitalComment on above:Performed By: #### CMP, CBC #### [facility] [address] [place] [address] USAHemoglobin A1c/Hemoglobin.total in BloodOrdered By: Roma Pritchard on 65-61-5812TdV5u (Bld) [Mass fraction]5.5 %Normal4.3-5.6FTrumbull Memorial HospitalComment on above:Increased risk for diabetes: 5.7 - 6.4diabetes: >6.4glycemic control for adults with diabetes: <7.0Result Comment: Increased risk for diabetes: 5.7 - 6.4 diabetes: >6.4 glycemic control for adults with diabetes: <7.0Performed By: #### DINA, [id number], LIPID, FE and TIBC, A1C WTH eA ####[facility] [address] [place] [address] USAHemoglobin [Mass/volume] in BloodOrdered By: Roma Pritchard on 19-18-9966Tmoxlyqwwl (Bld) [Mass/Vol]13.2 g/fHIuspuw50.8-15.4 [facility] TroyComment on above:Performed By: #### CMP, CBC #### [facility] [address] [place] [address] USAIron [Mass/volume] in Serum or PlasmaOrdered By: Roma Pritchard on 62-56-3098Kilk [Mass/Vol]83 ug/dSOzvpgu61-008MmmkjxpgqKettering Health TroyComment on above:Performed By: #### DINA, [id number], LIPID, FE and TIBC, A1C WTH eA #### [facility] [address] [place] [address] USAIron and TIBC Profileon 10-04-2024% Iron Kdavwzkyna15.3 % Qnh21-58Zdb [facility] Physician GroupComment on above:Performed By: #### DINA, [id number], LIPID, FE and TIBC, A1C WTH eA #### [facility] [address] [place] [id number] USATotal Iron Binding Fbzqkekj837 ug/hCTzjo597-265Qvq [facility] Physician GroupComment on above:Performed By: #### DINA, [id number], LIPID, FE and TIBC, A1C WTH eA #### [facility] [address] [place] [id number] USALeukocytes [#/volume] corrected for nucleated erythrocytes in Blood by Automated counOrdered By: Roma Pritchard on 50-24-2601JYB corrected for nucl RBC Auto (Bld) [#/Vol]6.7 10*3/uL3.8-11.6FTrumbull Memorial HospitalLeukocytes [#/volume] in Blood by Automated countOrdered By: Roma Pritchard on 68-15-9169FAI (Bld) [#/Vol]6.7 10*3/uLNormal3.8-11.6FTrumbull Memorial HospitalComment on above:Performed By: #### CMP, CBC #### [facility] [address] [place] [id number] USALipid Panelon 75-07-8627XNR Cholesterol,Peqwihbavz48 mg/dL Normal0-100The [facility] Physician GroupComment on above:Result Comment: LDL ATP III CLASSIFICATION LDL less than 100 mg/dL Optimal LDL 100-129 mg/dL Near or above optimal LDL 130-159 mg/dL Borderline high LDL 160-189 mg/dL High LDL greater than 189 mg/dL Very highPerformed By: #### DINA, [id number], LIPID, FE and TIBC, A1C WT eA #### [place] [id number] USATriglyceride w/Saajcg053 mg/dLHigh0-149[facility] GroupComment on above:Result Comment: TRIG ATP III CLASSIFICATION TRIG less than 150 mg/dL Normal TRIG 150-199 mg/dL Borderline high TRIG 200-500 mg/dL High TRIG greater than 500 mg/dL Very high Standard traceable to the Center for Disease Conrtrol and Prevention (CDC) test method.Performed By: #### DINA, [id number], LIPID, FE and TIBC, A1C WT eA #### [place] [address] USAVLDL UPOKKBCYHXR89 mg/dLNormalThe [facility] Physician GroupComment on above:Performed By: #### DINA, [id number], LIPID, FE and TIBC, [address] eA #### [place] [address] USALymphocytes [#/volume] in Blood by Automated countOrdered By: Roma Pritchard on 47-30-6309Onbfiqnfwbu (Bld) [#/Vol]1.5 10*3/uLNormal1.00-4.8 [facility] TroyComment on above:Performed By: #### CMP, CBC #### [place] [id number] USALymphocytes/100 leukocytes in Blood by Automated count Ordered By: Roma Pritchard on 74-98-8265Hngynvounje/100 WBC (Bld)22.9 %Normal. [facility] TroyComment on above:Performed By: #### CMP, CBC #### [place] [id number] USAMCH [Entitic mass] by Automated countOrdered By: Roma Pritchard on 98-27-0081BLG (RBC) [Entitic mass]31.1 jkRmhsne17.7-34.3FTrumbull Memorial HospitalComment on above:Performed By: #### CMP, CBC #### [facility] [address] Auto (RBC) [Mass/Vol]Ordered By: Roma Pritchard on 41-87-1250IOIK (RBC) [Mass/Vol]33.0 g/dL32.0-35.0Prov[facility] HospitalV [Entitic volume] by Automated countOrdered By: Roma Pritchard on 66-95-0576ZAE (RBC) [Entitic vol]94.3 pPLhksve61-075FzbzmnkueKettering Health TroyComment on above:Performed By: #### CMP, CBC #### [facility] [address] [place] [address] USAMonocytes [#/volume] in Blood by Automated countOrdered By: Roma Pritchard on 57-11-6019Vebuohgti (Bld) [#/Vol]0.5 10*3/uLNormal0.0-0.8 [facility] TroyComment on above:Performed By: #### CMP, CBC #### [facility] [address] [place] [address] USAMonocytes/100 leukocytes in Blood by Automated count Ordered By: Roma Pritchard on 72-68-4005Aositxhfm/100 WBC (Bld)8.0 %Normal. [facility] TroyComment on above:Performed By: #### CMP, CBC #### [facility] [address] [place] [address] USANeutrophils [#/volume] in Blood by Automated countOrdered By: Roma Pritchard on 45-66-2899Iqtajqhmpfu (Bld) [#/Vol]4.4 10*3/uLNormal1.8-7.7 [facility] TroyComment on above:Performed By: #### CMP, CBC #### [facility] [address] [place] [address] USANeutrophils/100 leukocytes in Blood by Automated count Ordered By: Roma Pritchard on 58-89-3360Ggjeiaxsfjm/100 WBC (Bld)66.5 %Normal. [facility] TroyComment on above:Performed By: #### CMP, CBC #### [place] [address] USANo Panel InformationOrdered By: Roma Pritchard on 10-04-2024 Estimated GFR (CKD-EPI)> 60.0 mL/MinKettering Health TroyPharmacy Creatinine Clearance (ChemN/AFTrumbull Memorial HospitalNucleated erythrocytes [Presence] in Blood by Automated countOrdered By: Roma Pritchard on 55-38-3142Ltnhvrcni RBC Auto Ql (Bld)0.1 /100{WBC}0-0.5FTrumbull Memorial HospitalPlatelet mean volume [Entitic volume] in Blood by Automated count Ordered By: Roma Pritchard on 95-38-5211Zhkrfbni mean volume (Bld) [Entitic vol] 10.2 fLNormal6.3-10.7FTrumbull Memorial HospitalComment on above:Performed By: #### CMP, CBC #### [facility] [address] [place] [address] USAPlatelets [#/volume] in Blood by Automated countOrdered By: Roma Pritchard on 36-68-6586Admxwvsmn (Bld) [#/Vol]232 10*3/cLEzvxph870-906 [facility] TroyComment on above:Performed By: #### CMP, CBC #### [place] [address] USAPotassium [Moles/volume] in Serum or PlasmaOrdered By: Roma Pritchard on 27-69-9655Dgcbmkwbv [Moles/Vol]4.0 mmol/LNormal3.5-5.1FTrumbull Memorial HospitalComment on above:Performed By: #### CMP, CBC #### [place] [address] USAProtein [Mass/volume] in Serum or PlasmaOrdered By: Roma Pritchard on 23-87-8648Rqfoteo [Mass/Vol]7.0 g/dLNormal6.4-8.9[facility] TroyComment on above:Performed By: #### CMP, CBC #### [place] [address] USASerum globulin measurement by calculation (mass/volume) Ordered By: Roma Pritchard on 76-34-5708Twejvldl (S) [Mass/Vol]2.4 g/dLNormal [facility] TroyComment on above:Performed By: #### CMP, CBC #### [facility] [address] [place] [address] USASerum or plasma albumin/globulin mass ratioOrdered By: Roma Pritchard on 89-98-9515Chbotbr/Globulin [Mass ratio]1.9 {ratio}Normal [facility] TroyComment on above:Performed By: #### CMP, CBC #### [facility] [address] [place] [address] USASerum or plasma anion gap determinationOrdered By: Roma Pritchard on 18-55-8824Roxxt gap [Moles/Vol]10.7 mmol/LNormal6.0-15.0[facility] TroyComment on above:Performed By: #### CMP, CBC #### [facility] [address] [place] [address] USASerum or plasma iron binding capacity measurement (mass/volume)Ordered By: Roma Pritchard on 37-10-9798Phcv binding capacity [Mass/Vol]454 ug/xAAkkv123-500WfllzztgxLakeHealth TriPoint Medical Centererum or plasma iron saturation measurement (mass fraction)Ordered By: Roma Pritchard on 36-86-1101Unss saturation [Mass fraction]18.3 %Olb52-66ZayoveljjLakeHealth TriPoint Medical Centererum or plasma total cholesterol/high density lipoprotein (HDL) cholesterol mass ratOrdered By: Roma Pritchard on 10-04-2024 Cholesterol.total/Cholesterol in HDL [Mass ratio]2.9 {ratio}Normal<5.0[facility] TroyComment on above:Performed By: #### DINA, [id number], LIPID, FE and TIBC, A1C WTH eA #### [facility] [address] [place] [id number] USASodium [Moles/volume] in Serum or PlasmaOrdered By: Roma Pritchard on 86-66-7214Tppgxm [Moles/Vol]140 mmol/BOdzglv147-218HjomvrxvwKettering Health TroyComment on above:Performed By: #### CMP, CBC #### [facility] [address] [place] [id number] USATransferrin [Mass/volume] in Serum or PlasmaOrdered By: Roma Pritchard on 46-44-2012Laixnijjrgk [Mass/Vol]324 mg/jWEoznes669-218FmcoprejoKettering Health TroyComment on above:Performed By: #### DINA, [id number], LIPID, FE and TIBC, A1C WTH eA #### [facility] [address] [place] [id number] USATriglyceride [Mass/volume] in Serum or PlasmaOrdered By: Roma Pritchard on 69-57-6671Szqlnkaipzps [Mass/Vol]192 mg/dLHigh0-149[facility] TroyComment on above:TRIG ATP III CLASSIFICATIONTRIG less than 150 mg/dL NormalTRIG 150-199 mg/dL Borderline highTRIG 200-500 mg/dL High TRIG greater than 500 mg/dL Very highStandard traceable to the Center for Disease Conrtrol and Prevention (CDC) test method.Urea nitrogen [Mass/volume] in Serum or PlasmaOrdered By: Roma Pritchard on 15-55-1470Xbqt nitrogen [Mass/Vol]26 mg/dLHigh7-25[facility] TroyComment on above:Performed By: #### CMP, CBC #### [place] [address] USAVit. B12/Folate Profileon 14-86-4268Wduzud75.9 ng/mLNormal >5.9The [facility] Physician GroupComment on above:Result Comment: Folate reference range: >5.9 ng/ml The WHO technical consultation on folate and vitamin b12 deficiencies has determined that folate concentrations less than 4 ng/ml are considered deficient. PERFORMED BY: [place] [address] PATHOLOGIST PHYSICIAN INTERNIST RELL KENNY M.D.Performed By: #### DINA, [id number], LIPID, FE and TIBC, A1C WTH eA #### [place] [id number] USAVitamin B12 ser/plasOrdered By: Roma Pritchard on 10-04-2024 Cobalamin (Vitamin B12) [Mass/Vol]683 pg/vDZqgihp282-020CtqfoucktKettering Health TroyComment on above:Performed By: #### DINA, [id number], LIPID, FE and TIBC, A1C WT eA #### [facility] [address] [place] [id number] USANo Panel Informationon 46-36-0525LWYV EtzxfdqdrpP0F with Estimated Average Gluon 77-45-6972Qdkipil [Mass/Vol]111 mg/dLNormalThLost Rivers [facility] Center Physician GroupComment on above:Result Comment: PERFORMED BY: [facility] [address] [place] [address] PATHOLOGIST PHYSICIAN INTERNIST TIANA EDUARDO M.D.Performed By: #### LIPID, DINA, [id number], B12, FOL, FE and TIBC, A1C WT eA, TSH3 ####[facility] [place] [id number] MUNUaR4l (Bld) [Mass fraction]5.5 %Normal4.3-5.6The [facility] Physician GroupComment on above:Result Comment: Increased risk for diabetes: 5.7 - 6.4 diabetes: >6.4 glycemic control for adults with diabetes: <7.0Performed By: #### LIPID, DINA, [id number], B12, FOL, FE and TIBC, A1C WT eA, TSH3 ####[facility] [place] [id number] USAAlanine aminotransferase [Enzymatic activity/volume] in Serum or PlasmaOrdered By: Roma Pritchard on 38-89-9394PSP [Catalytic activity/Vol]Alanine aminotransferase [Enzymatic activity/volume] in Serum or Plasma7-52[facility] TroyAlbumin [Mass/volume] in Serum or Plasma by Bromocresol green (BCG) dye binding methoOrdered By: Roma Pritchard on 18-44-4171Efbpgun BCG dye [Mass/Vol]Albumin [Mass/volume] in Serum or Plasma by Bromocresol green (BCG) dye binding metho3.5-5.7FTrumbull Memorial HospitalAlkaline phosphatase [Enzymatic activity/volume] in Serum or PlasmaOrdered By: Roma Pritchard on 42-65-2456BEY [Catalytic activity/Vol]Alkaline phosphatase [Enzymatic activity/volume] in Serum or Ykguzj82-434BfxollpmaKettering Health TroyAspartate aminotransferase [Enzymatic activity/volume] in Serum or PlasmaOrdered By: Roma Pritchard on 04-00-2026PRL [Catalytic activity/Vol]Aspartate aminotransferase [Enzymatic activity/volume] in Serum or Gbyckz57-01BpcerqwdxKettering Health TroyBasophils Auto (Bld) [#/Vol]Ordered By: Roma Pritchard on 95-78-8676Xlbgenvwy (Bld) [#/Vol]Automated basophil count 0.0-0.2FTrumbull Memorial HospitalBasophils/100 WBC Auto (Bld)Ordered By: Roma Pritchard on 29-81-8126Bxvcnxkty/100 WBC (Bld)Automated basophil %.[facility] TroyBilirubin.total [Mass/volume] in Serum or PlasmaOrdered By: Roma Pritchard on 01-20-8816Sguwnmetf [Mass/Vol]Bilirubin.total [Mass/volume] in Serum or Plasma0.3-1.0[facility] TroyBlood estimated average glucose determination by estimation from glycated hemoglobinOrdered By: Roma Pritchard on 20-14-6551Uuicfda glucose Estimated from glycated hemoglobin (Bld) [Mass/Vol]Glucose mean value [Mass/volume] in Blood Estimated from glycated hemoglobinKettering Health TroyCalcium [Mass/volume] in Serum or PlasmaOrdered By: Roma Pritchard on 83-43-3825Eqswdap [Mass/Vol]Calcium [Mass/volume] in Serum or Plasma8.6-10.3FTrumbull Memorial HospitalCarbon dioxide, total [Moles/volume] in Serum or PlasmaOrdered By: Roma Pritchard on 49-31-4508EQ8 [Moles/Vol]Carbon dioxide, total [Moles/volume] in Serum or Plasma 21.0-31.0[facility] TroyChloride [Moles/volume] in Serum or PlasmaOrdered By: Roma Pritchard on 57-78-5114Oqnumwdu [Moles/Vol]Chloride [Moles/volume] in Serum or Rrxnxy14-569ZquymuyaoKettering Health Troy Cholesterol [Mass/volume] in Serum or PlasmaOrdered By: Roma Pritchard on 27-34-5848Vfykngtdzsh [Mass/Vol]Cholesterol [Mass/volume] in Serum or Plasma 140-200[facility] TroyComment on above:Chol less than 200 mg/dl low riskChol 201-239 mg/dl borderline riskChol 240 mg/dl and greater high riskCholesterol in HDL [Mass/volume] in Serum or PlasmaOrdered By: Roma Pritchard on 47-87-5197Njbblmgxwew in HDL [Mass/Vol]Serum or plasma high density lipoprotein (HDL) cholesterol enyhqwwzhgg24-21KmckrbqqcKettering Health Troy Comment on above:HDL CHOL ATP-III CLASSIFICATION Cardiovascular RiskHDL > or equal to 60 mg/dL LOWHDL < 40 mg/dL HIGHCholesterol in LDL Calc [Mass/Vol] Ordered By: Roma Pritchard on 11-38-1579Rqpaizbixaz in LDL [Mass/Vol]Cholesterol in LDL [Mass/volume] in Serum or Plasma by calculationKettering Health TroyComment on above:LDL ATP III CLASSIFICATIONLDL less than 100 mg/dL OptimalLDL 100-129 mg/dL Near or above udelcfqLXL532-220 mg/dL Borderline highLDL 160-189 mg/dL HighLDL greater than 189 mg/dL Very highCholesterol in VLDL Calc [Mass/Vol]Ordered By: Roma Pritchard on 00-08-9882Uulpokghlmu in VLDL [Mass/Vol]Cholesterol in VLDL [Mass/volume] in Serum or Plasma by calculation [facility] TroyComplete Blood Count Auto Diffon 03-21-2024 Basophils (Bld) [#/Vol]0.0 10*3/uLNormal0.0-0.2The [facility] Comment on above:Result Comment: PERFORMED BY: [place] [address] PATHOLOGIST PHYSICIAN INTERNIST TIANA EDUARDO M.D.Performed By: #### CMP, CBC #### [place] [address] USABasophils/100 WBC (Bld)0.6 %Normal.The [facility] Physician GroupComment on above:Performed By: #### CMP, CBC #### [place] [address] USAEosinophils (Bld) [#/Vol]0.1 10*3/uLNormal0.0-0.45The [facility] Physician GroupComment on above:Performed By: #### CMP, CBC #### [place] [address] USAEosinophils/100 WBC (Bld)2.6 %Normal.The [facility] Physician GroupComment on above:Performed By: #### CMP, CBC #### [place] [address] USAErythrocyte distribution width (RBC) [Ratio]13.7 %Normal 11.9-15.3The [facility] Physician GroupComment on above:Performed By: #### CMP, CBC #### [place] [address] USAHematocrit (Bld) [Volume fraction]39.9 %Osnibm22.0-46.4The [facility] Physician GroupComment on above:Performed By: #### CMP, CBC #### [place] [address] USAHemoglobin (Bld) [Mass/Vol]13.5 g/sPQckior91.8-15.4The [facility] Physician GroupComment on above:Performed By: #### CMP, CBC #### [place] [address] USALymphocytes (Bld) [#/Vol]1.4 10*3/uLNormal1.00-4.8The [facility] Physician GroupComment on above:Performed By: #### CMP, CBC #### [place] [address] USALymphocytes/100 WBC (Bld)26.7 %Normal.The [facility] Physician GroupComment on above:Performed By: #### CMP, CBC #### [place] [address] USAMCH (RBC) [Entitic mass]31.2 ziVlcrtg51.7-34.3The [facility] Physician GroupComment on above:Performed By: #### CMP, CBC #### [place] [address] USAMCV (RBC) [Entitic vol]92.3 ePLyuzwc67-747Aos [facility] Physician GroupComment on above:Performed By: #### CMP, CBC #### [place] [address] USAMean Corpuscular HGB Conc33.8 g/zVGfntfg37.0-35.0The [facility] Physician GroupComment on above:Performed By: #### CMP, CBC #### [place] [address] USAMonocytes (Bld) [#/Vol]0.4 10*3/uLNormal0.0-0.8The [facility] Physician GroupComment on above:Performed By: #### CMP, CBC #### [place] [address] USAMonocytes/100 WBC (Bld)8.4 %Normal.The [facility] Physician GroupComment on above:Performed By: #### CMP, CBC #### [place] [address] USANeutrophils (Bld) [#/Vol]3.3 10*3/uLNormal1.8-7.7The [facility] Physician GroupComment on above:Performed By: #### CMP, CBC #### [place] [address] USANeutrophils/100 WBC (Bld)61.7 %Normal.The [facility] Physician GroupComment on above:Performed By: #### CMP, CBC #### [place] [address] USANRBC%0.1 /100{WBC}Normal0-0.5The [facility] Comment on above:Performed By: #### CMP, CBC #### [place] [address] USAPlatelet mean volume (Bld) [Entitic vol]10.2 fLNormal 6.3-10.7The [facility] Physician GroupComment on above:Performed By: #### CMP, CBC #### [place] [address] USAPlatelets (Bld) [#/Vol]250 10*3/vHZsgnbs663-166Emv [facility] Physician GroupComment on above:Performed By: #### CMP, CBC #### [place] [address] USARBC (Bld) [#/Vol]4.32 10*6/uLNormal3.60-5.00The [facility] Physician GroupComment on above:Performed By: #### CMP, CBC #### [place] [address] USAWBC (Bld) [#/Vol]5.4 10*3/uLNormal3.8-11.6The [facility] Physician GroupComment on above:Performed By: #### CMP, CBC #### [place] [address] USAComprehensive Metabolic Panelon 59-74-6778Atfjmwo [Mass/Vol]4.6 g/dLNormal3.5-5.7The [facility] Physician GroupComment on above: Performed By: #### CMP, CBC #### [place] [address] USAAlbumin/Globulin [Mass ratio]1.8 {ratio}NormalThe [facility] Physician GroupComment on above:Performed By: #### CMP, CBC #### [place] [address] USAALP [Catalytic activity/Vol]77 U/WFxhidz43-644Eag [facility] Physician GroupComment on above:Result Comment: PERFORMED BY: [place] [address] PATHOLOGIST PHYSICIAN INTERNIST TIANA EDUARDO M.D.Performed By: #### CMP, CBC #### [place] [address] USAALT [Catalytic activity/Vol]30 U/LNormal7-52The [facility] Physician GroupComment on above:Performed By: #### CMP, CBC #### [facility] [address] [place] [address] USAAnion gap [Moles/Vol]12.5 mmol/LNormal6.0-15.0The [facility] Physician GroupComment on above:Performed By: #### CMP, CBC #### [facility] [address] [place] [address] USAAST [Catalytic activity/Vol]21 U/ACrffkq55-87Apr [facility] Physician GroupComment on above:Performed By: #### CMP, CBC #### [facility] [address] [place] [address] USABilirubin [Mass/Vol]0.6 mg/dLNormal0.3-1.0The [facility] Physician GroupComment on above:Performed By: #### CMP, CBC #### [facility] [address] [place] [address] USACalcium [Mass/Vol]10.0 mg/dLNormal8.6-10.3The [facility] Physician GroupComment on above:Performed By: #### CMP, CBC #### [facility] [address] [place] [address] USAChloride [Moles/Vol]103 mmol/CKnlzpo25-062Fhg [facility] Physician GroupComment on above:Performed By: #### CMP, CBC #### [facility] [address] [place] [address] USACO2 [Moles/Vol]29.7 mmol/BQshews38.0-31.0The [facility] Physician GroupComment on above:Performed By: #### CMP, CBC #### [facility] [address] [place] [address] USACreatinine [Mass/Vol]0.87 mg/dLNormal0.60-1.20The [facility] Physician GroupComment on above:Performed By: #### CMP, CBC #### [facility] [address] [place] [address] USAGFR/1.73 sq M.predicted MDRD (S/P/Bld) [Vol rate/Area] mL/min/{1.73_m2}NormalThe [facility] Physician GroupComment on above:Performed By: #### CMP, CBC #### [facility] [address] [place] [address] USAGlobulin (S) [Mass/Vol]2.5 g/dLNormalThe [facility] Physician GroupComment on above:Performed By: #### CMP, CBC #### [facility] [address] [place] [address] USAGlucose [Mass/Vol]109 mg/uQXaqf99-643Boc [facility] Physician GroupComment on above:Result Comment: Random Glucose Reference Range is dependent on time and content of last meal. Glucose of more than 200 mg/dL in a nonstressed, ambulatory subject supports the diagnosis of Diabetes Mellitus. ADA recommended reference rangePerformed By: #### CMP, CBC #### [facility] [address] [place] [address] USAPotassium [Moles/Vol]4.2 mmol/LNormal3.5-5.1The [facility] Physician GroupComment on above:Performed By: #### CMP, CBC #### [facility] [address] [place] [address] USAProtein [Mass/Vol]7.1 g/dLNormal6.4-8.9The [facility] Physician GroupComment on above:Performed By: #### CMP, CBC #### [facility] [address] [place] [address] USASodium [Moles/Vol]141 mmol/ZMjuger118-501Kzs [facility] Physician GroupComment on above:Performed By: #### CMP, CBC #### [facility] [address] [place] [address] USAUrea nitrogen [Mass/Vol]21 mg/dLNormal7-25The [facility] Physician GroupComment on above:Performed By: #### CMP, CBC #### [facility] [address] [place] [address] USACreatinine [Mass/volume] in Serum or PlasmaOrdered By: Roma Pritchard on 09-81-2985Cxehkyivyf [Mass/Vol]Creatinine [Mass/volume] in Serum or Plasma0.60-1.20[facility] TroyEosinophils Auto (Bld) [#/Vol]Ordered By: Roma Pritchard on 04-41-7023Vkfkxhnhijw (Bld) [#/Vol]Automated eosinophil count0.0-0.45[facility] TroyEosinophils/100 WBC Auto (Bld)Ordered By: Roma Pritchard on 74-18-3704Pielfykpohs/100 WBC (Bld) Automated eosinophil %.[facility] TroyErythrocyte distribution width Auto (RBC) [Ratio]Ordered By: Roma Pritchard on 33-27-2730Wgwihsdfjpq distribution width (RBC) [Ratio]Erythrocyte distribution width [Ratio] by Automated count11.9-15.3FTrumbull Memorial HospitalFerritinon 03-21-2024 Ferritin [Mass/Vol]38.1 ng/bKFyguxd64.0-306.8The [facility] Comment on above:Performed By: #### LIPID, DINA, [id number], B12, FOL, FE and TIBC, A1C [facility], TSH3 ####[facility] [address] [place] [address] USAFerritin [Mass/volume] in Serum or PlasmaOrdered By: Roma Pritchard on 04-24-1786Wpqygurj [Mass/Vol]Ferritin [Mass/volume] in Serum or Plasma 11.0-306.8[facility] TroyFolateon 31-93-1088Vypjwi25.4 ng/mL Normal>5.9The [facility] Physician GroupComment on above:Result Comment: Folate reference range: >5.9 ng/ml The WHO technical consultation on folate and vitamin b12 deficiencies has determined that folate concentrations less than 4 ng/ml are considered deficient.Performed By: #### LIPID, DINA, [id number], B12, FOL, FE and TIBC, A1C [facility], TSH3 ####[facility] [address] [place] [address] USAFolate [Mass/volume] in Serum or PlasmaOrdered By: Roma Pritchard on 12-49-5828Bzauro [Mass/Vol]Folate [Mass/volume] in Serum or Plasma>5.9[facility] TroyComment on above:Folate reference range: >5.9 ng/mlThe WHO technical consultation on folate and vitamin c99bumejja ncies has determined that folate concentrations lessthan 4 ng/ml are considered deficient.Globulin Calc (S) [Mass/Vol]Ordered By: Roma Pritchard on 03-21-2024 Globulin (S) [Mass/Vol]Serum globulin measurement by calculation (mass/volume) [facility] TroyGlucose [Mass/volume] in Serum or PlasmaOrdered By: Roma Pritchard on 49-69-2039Brmixeo [Mass/Vol]Glucose [Mass/volume] in Serum or QnrsfzAvha25-049VkfjfzrfuKettering Health TroyComment on above:ADA recommended reference rangeRandom Glucose Reference Range is dependent on time and content of last meal. Glucose of more than 200 mg/dL in a nonstressed, ambulatory subject supports the diagnosisof Diabetes Mellitus.Hematocrit Auto (Bld) [Volume fraction]Ordered By: Roma Pritchard on 04-82-0375Qyotlntwvj (Bld) [Volume fraction]Hematocrit [Volume Fraction] of Blood by Automated count 34.0-46.4FTrumbull Memorial HospitalHemoglobin A1c/Hemoglobin.total in BloodOrdered By: Roma Pritchard on 59-67-6624RiO2t (Bld) [Mass fraction]Hemoglobin A1c percentage4.3-5.6FTrumbull Memorial HospitalComment on above:Increased risk for diabetes: 5.7 - 6.4diabetes: >6.4glycemic control for adults with diabetes: <7.0Hemoglobin [Mass/volume] in BloodOrdered By: Roma Pritchard on 26-54-5581Zsnliblalg (Bld) [Mass/Vol]Hemoglobin [Mass/volume] in Blood11.8-15.4 [facility] TroyIron [Mass/volume] in Serum or PlasmaOrdered By: Roma Pritchard on 72-43-8011Liqe [Mass/Vol]Iron [Mass/volume] in Serum or Pawuys58-150OprqtlngkKettering Health TroyIron and TIBC Profileon 03-21-2024% Iron Aypuaqtdzc94.6 %Lntlmc63-19Iny [facility] Physician GroupComment on above: Performed By: #### LIPID, DINA, [id number], B12, FOL, FE and TIBC, A1C WTH eA, TSH3 ####[address] [place] [address] USAIron [Mass/Vol]94 ug/aPUghfjz19-011Yii [facility] Physician GroupComment on above: Performed By: #### LIPID, DINA, [id number], B12, FOL, FE and TIBC, [address], TSH3 ####[address] [place] [address] USATotal Iron Binding Rrtolasn253 ug/lNUfzl803-329Xpt [facility] Physician [facility] Memorial HospitalComment on above:Performed By: #### LIPID, DINA, [id number], B12, FOL, FE and TIBC, [address], TSH3 ####[address] [address] USATransferrin [Mass/Vol]326 mg/tDCcffar255-612Hwn [facility] Comment on above:Performed By: #### LIPID, DINA, [id number], B12, FOL, FE and TIBC, [address], TSH3 ####[address] [address] USALeukocytes [#/volume] corrected for nucleated erythrocytes in Blood by Automated counOrdered By: Roma Pritchard on 74-17-7069IZY corrected for nucl RBC Auto (Bld) [#/Vol]Leukocytes [#/volume] corrected for nucleated erythrocytes in Blood by Automated coun3.8-11.6FTrumbull Memorial HospitalLipid Panel on 83-61-5832Dtejtskgayi [Mass/Vol]171 mg/lOUfavdt388-691Jbf [facility] Physician GroupComment on above:Result Comment: Chol less than 200 mg/dl low risk Chol 201-239 mg/dl borderline risk Chol 240 mg/dl and greater high riskPerformed By: #### LIPID, DINA, [id number], B12, FOL, FE and TIBC, [address], TSH3 ####[address] [address] USACholesterol in HDL [Mass/Vol]62 mg/dLNormal 23-92The [facility] Physician GroupComment on above:Result Comment: HDL CHOL ATP- III CLASSIFICATION Cardiovascular Risk HDL > or equal to 60 mg/dL LOW HDL < 40 mg/dL HIGHPerformed By: #### LIPID, DINA, [id number], B12, FOL, FE and TIBC, [address], TSH3 ####[address] [address] USACholesterol.total/Cholesterol in HDL [Mass ratio]2.8 {ratio}Normal<5.0The [facility] Physician GroupComment on above:Performed By: #### LIPID, DINA, [id number], B12, FOL, FE and TIBC, [address], TSH3 ####[address] [address] USALDL Cholesterol,Yzrnwzrnhs69 mg/dLNormal0-100The [facility] Physician GroupComment on above:Result Comment: LDL ATP III CLASSIFICATION LDL less than 100 mg/dL Optimal LDL 100-129 mg/dL Near or above optimal LDL 130-159 mg/dL Borderline high LDL 160-189 mg/dL High LDL greater than 189 mg/dL Very highPerformed By: #### LIPID, DINA, [id number], B12, FOL, FE and TIBC, [address], TSH3 ####[address] [address] USATriglyceride w/Mewjak898 mg/dLHigh0-149The [facility] Physician GroupComment on above:Result Comment: TRIG ATP III CLASSIFICATION TRIG less than 150 mg/dL Normal TRIG 150-199 mg/dL Borderline high TRIG 200-500 mg/dL High TRIG greater than 500 mg/dL Very high Standard traceable to the Center for Disease Conrtrol and Prevention (CDC) test method.Performed By: #### LIPID, DINA, [id number], B12, FOL, FE and TIBC, A1C [facility], TSH3 ####[address] [address] USAVLDL QMWYYYCDQWN76 mg/dLNormalThe [facility] Physician GroupComment on above:Performed By: #### LIPID, DINA, [id number], B12, FOL, FE and TIBC, [address], TSH3 ####[address] [place] [address] USALymphocytes Auto (Bld) [#/Vol]Ordered By: Roma Pritchard on 02-61-4959Ofysxtkffvo (Bld) [#/Vol]Lymphocytes [#/volume] in Blood by Automated count1.00-4.8[facility] TroyLymphocytes/100 WBC Auto (Bld)Ordered By: Roma Pritchard on 97-42-5203Owadkgrxbkz/100 WBC (Bld) Lymphocytes/100 leukocytes in Blood by Automated count.[facility] TroyMCH Auto (RBC) [Entitic mass]Ordered By: Roma Pritchard on 69-95-1933TXX (RBC) [Entitic mass]MCH [Entitic mass] by Automated count24.7-34.3 [facility] TroyMCHC Auto (RBC) [Mass/Vol]Ordered By: Roma Pritchard on 50-54-1317IGFR (RBC) [Mass/Vol]MCHC [Mass/volume] by Automated count 32.0-35.0[facility] TroyMCV Auto (RBC) [Entitic vol]Ordered By: Roma Pritchard on 12-55-8359AKP (RBC) [Entitic vol]MCV [Entitic volume] by Automated igksr86-329JzhzeunmjKettering Health TroyMonocytes Auto (Bld) [#/Vol]Ordered By: Roma Pritchard on 55-28-0182Qsfxiindx (Bld) [#/Vol]Automated blood monocyte count0.0-0.8[facility] TroyMonocytes/100 WBC Auto (Bld)Ordered By: Roma Pritchard on 29-42-8580Pwvtqihhx/100 WBC (Bld)Automated monocyte %.[facility] TroyNeutrophils Auto (Bld) [#/Vol] Ordered By: Roma Pritchard on 65-41-1601Kfmjhvyijtq (Bld) [#/Vol]Neutrophils [#/volume] in Blood by Automated count1.8-7.7FTrumbull Memorial Hospital Neutrophils/100 WBC Auto (Bld)Ordered By: Roma Pritchard on 03-21-2024 Neutrophils/100 WBC (Bld)Automated neutrophil %.[facility] TroyNo Panel InformationOrdered By: Roma Pritchard on 94-06-0730Wghnhroil GFR (CKD-EPI)> 60.0 mL/MinKettering Health TroyPharmacy Creatinine Clearance (ChemN/AFTrumbull Memorial HospitalNucleated erythrocytes [Presence] in Blood by Automated countOrdered By: Roma Pritchard on 03-21-2024 Nucleated RBC Auto Ql (Bld)Nucleated erythrocytes [Presence] in Blood by Automated count0-0.5FTrumbull Memorial HospitalPlatelet mean volume Auto (Bld) [Entitic vol]Ordered By: Roma Pritchard on 31-51-0958Aiqmtbbl mean volume (Bld) [Entitic vol]Platelet mean volume [Entitic volume] in Blood by Automated count6.3-10.7FTrumbull Memorial HospitalPlatelets Auto (Bld) [#/Vol] Ordered By: Roma Pritchard on 71-79-0918Jeawammfv (Bld) [#/Vol]Platelets [#/volume] in Blood by Automated ytifr473-506FuvhwkdywKettering Health Troy Potassium [Moles/volume] in Serum or PlasmaOrdered By: Roma Pritchard on 96-63-1103Bpngdjjgw [Moles/Vol]Potassium [Moles/volume] in Serum or Plasma 3.5-5.1FTrumbull Memorial HospitalProtein [Mass/volume] in Serum or Plasma Ordered By: Roma Pritchard on 81-42-0331Felzxcz [Mass/Vol]Protein [Mass/volume] in Serum or Plasma6.4-8.9[facility] TroyRBC Auto (Bld) [#/Vol] Ordered By: Roma Pritchard on 71-86-6629FVP (Bld) [#/Vol]Erythrocytes [#/volume] in Blood by Automated count3.60-5.00[facility] Medical Centererum or plasma albumin/globulin mass ratioOrdered By: Roma Pritchard on 03-21-2024 Albumin/Globulin [Mass ratio]Serum or plasma albumin/globulin mass ratio [facility] Centererum or plasma anion gap determinationOrdered By: Roma Pritchard on 82-40-9602Jjamy gap [Moles/Vol]Serum or plasma anion gap determination6.0-15.0[facility] Centererum or plasma iron binding capacity measurement (mass/volume)Ordered By: Roma Pritchard on 03-21-2024 Iron binding capacity [Mass/Vol]Iron binding capacity [Mass/volume] in Serum or TsfffqPgqu708-610BcuwguokgLakeHealth TriPoint Medical Centererum or plasma iron saturation measurement (mass fraction)Ordered By: Roma Pritchard on 82-45-4286Yhmx saturation [Mass fraction]Iron saturation [Mass Fraction] in Serum or Plasma 20-50[facility] Medical Centererum or plasma total cholesterol/high density lipoprotein (HDL) cholesterol mass ratOrdered By: Roma Pritchard on 79-11-0227Ruarnnelsow.total/Cholesterol in HDL [Mass ratio]Serum or plasma total cholesterol/high density lipoprotein (HDL) cholesterol mass rat<5.0[facility] Medical Centerodium [Moles/volume] in Serum or PlasmaOrdered By: Roma Pritchard on 93-80-1419Zbeztf [Moles/Vol]Sodium [Moles/volume] in Serum or Plasma 136-145[facility] TroyThyroid Stimulating Hormoneon 03-21-2024 TSH Qn2.27 m[IU]/LNormal0.45-5.33The [facility] Physician GroupComment on above: Performed By: #### LIPID, DINA, [id number], B12, FOL, FE and TIBC, A1C WTH eA, TSH3 ####[facility] [address] Thyrotropin [Units/volume] in Serum or PlasmaOrdered By: Roma Pritchard on 90-79-3326DVA QnThyrotropin [Units/volume] in Serum or Plasma0.45-5.33[facility] TroyTransferrin [Mass/volume] in Serum or PlasmaOrdered By: Roma Pritchard on 20-92-0428Xuqazulmrcs [Mass/Vol]Transferrin [Mass/volume] in Serum or Myissg159-253PjwanpntbKettering Health TroyTriglyceride [Mass/volume] in Serum or PlasmaOrdered By: Roma Pritchard on 03-21-2024 Triglyceride [Mass/Vol]Triglyceride [Mass/volume] in Serum or PlasmaHigh0-149 [facility] TroyComment on above:TRIG ATP III CLASSIFICATIONTRIG less than 150 mg/dL NormalTRIG 150-199 mg/dL Borderline highTRIG 200-500 mg/dL High TRIG greater than 500 mg/dL Very highStandard traceable to the Center for Disease Conrtrol and Prevention (CDC) test method. Urea nitrogen [Mass/volume] in Serum or PlasmaOrdered By: Roma Pritchard on 48-11-4372Dmcp nitrogen [Mass/Vol]Urea nitrogen [Mass/volume] in Serum or Plasma 09-16[facility] TroyVitamin B12on 89-49-8201Vqxfaddbk (Vitamin B12) [Mass/Vol]740 pg/hLDiljbg653-474Duw [facility] Physician GroupComment on above:Performed By: #### LIPID, DINA, [id number], B12, FOL, FE and TIBC, A1C WT eA, TSH3 ####[address] [place] [address] [facility] CENTERVitamin B12 ser/plasOrdered By: Roma Pritchard on 98-24-4927Fgkudzmup (Vitamin B12) [Mass/Vol]Vitamin B12 ser/dyvs471-786IiapmztwoKettering Health Troy Vitamin D 25 Hydroxy Totalon 51-40-7207Vmfojgn D 25 Hydroxy Total34.5 ng/mL Kfiwib46-488Dgn [facility] Physician GroupComment on above:Result Comment: VITAMIN D STATUS 25(OH)VITAMIN D RANGE (ng/mL) Deficient <20 Insufficient 20 to <30 Sufficient 30 to 100 Reference: Bro MF,Salo NC, Iqra PAGE, et al. Evaluation,treatment, and prevention of vitamin D deficiency; an Endocrine Society clinical practice guideline. JCEM. 2010; 96(7):1911-30. PERFORMED BY: [facility] [address] [place] [address] PATHOLOGIST PHYSICIAN INTERNIST TIANA EDUARDO M.D.Performed By: #### LIPID, DINA, [id number], B12, FOL, FE and TIBC, [facility]C [facility]Kind[facility], TSH3 ####[address] [place] [address] [facility] CENTERVitamin D+Metabolites [Mass/volume] in Serum or PlasmaOrdered By: Roma Pritchard on 24-95-7675Uxnqpuf D+Metabolites [Mass/Vol] Vitamin D+Metabolites [Mass/volume] in Serum or Bpsfsd51-163LwsdsxplpKettering Health TroyComment on above:VITAMIN D STATUS 25(OH)VITAMIN D RANGE (ng/mL) Deficient <20 Insufficient 20 to <72Afsmktkxqn58 to 100Reference: Bro MF,Salo NC, Iqra PAGE, et al. Evaluation,treatment, and prevention of vitamin D deficiency; an Endocrine Society clinical practice guideline. JCEM. 2010; 96(7):1911-30.WBC Auto (Bld) [#/Vol]Ordered By: Roma Pritchard on 67-04-0696PCF (Bld) [#/Vol]Leukocytes [#/volume] in Blood by Automated count 3.8-11.6FTrumbull Memorial HospitalMM screening mammo BI w/CADon 81-38-0726AP screening [facility] [place] [address] [place] [address] Mammography Report Signed Patient: Teagan Gonsales MR#: [id number] : 1955 Acct:[id number] Age/Sex: 68 / F ADM Date: 01/22/24 Loc: [place] Room: Type: [facility] Attending Dr: Orlando Vicente MD Copies to: MD Roma LAMAS DO Ordering Provider: ORLANDO VICENTE MD Date of Service: 01/22/24 MM/MM [...] Arnaldo Farris M.D.01/22/2024 10:04 AM Dictation Location: [facility] Transcribed By: [facility] 01/22/24 1004 Dictated By: Arnaldo Farris II, MD 01/22/24 0958 Signed By: 01/22/24 1004[facility] Physician GroupAmbulatory Visit Summaryon 70-64-9908Tyczhhsxks Visit SummaryAmbulatory Visit Summary TEAGAN GONSALES :1955 Visit Date:01/14/2024 Ambulatory Visit Instructions Your Diagnosis Kidney stones Your Care Team Attending Physician - MARIANA DUONG PA-C Primary Care Physician - Roma Pritchard DO This Is Your Medications List Turmeric alprazolam (Xanax) atorvastatin (atorvastatin 20 mg Tab) bifidobacterium-lactobacillus (Probiotic 10 Ultra Strength) carbonyl iron (Iron Chews) cyanocobalamin (Vitamin B12) ergocalciferol (Vitamin D) esomeprazole (esomeprazole 40 mg Cap-EC) hydrochlorothiazide (hydrochlorothiazide 25 mg oral tablet) losartan (losartan 100 mg Tab) Procedures Performed Breast surgery, Colonoscopy, Hip replacement, Tubal ligation. Discharge Vitals Heart Rate (Peripheral) 6 Blood Pressure 128/84 Height 155 cm Height 61 in Weight 68 kg Weight 149.914 lb BMI 28.3 Medications What How Much When Instructions Unchanged alprazolam (Xanax) As Directed Unchanged atorvastatin (atorvastatin 20 mg Tab) Every day Unchanged bifidobacterium-lactobacillus (Probiotic 10 Ultra Strength) Every day Unchanged carbonyl iron (Iron Chews) Every day Unchanged cyanocobalamin (Vitamin B12) Unchanged ergocalciferol (Vitamin D) 2 times a day Unchanged esomeprazole (esomeprazole 40 mg Cap-EC) Every day Unchanged hydrochlorothiazide (hydrochlorothiazide 25 mg oral tablet) Every day Unchanged losartan (losartan 100 mg Tab) Every day Unchanged Turmeric Every day Medications and Immunizations Administered Given influenza, unspecified formulation, Allergies No Known Allergies Problems Ongoing - Any problem that you are currently receiving treatment for. Arthritis High cholesterol Hypertension Kidney stones Patient Survey You may receive a survey via text or e-mail asking about your office visit. Please share your experience with us by completing your survey. We appreciate your feedback and thank you for choosing us for your care. [facility] 81-27-8200Dkeppmuvg Reminders From: Kat Cruz To: EU - Recalls Ritchie; Sent: 01/14/2024 09:57:11 EST Show up: 12/24/2024 09:56:00 EDT Subject: Ambulatory Reminder Due Date/Time: 01/07/2025 09:56:00 EST Reminder/Recall Patient needs schedule for a 1 yr GISSELLE and KUB prior to her 01/17/[facility]-14-[facility]24 Urology Office/Clinic NoteUrology Office/Clinic Note Chief Complaint 1 yr w/ KUB HPI Staff 68 yr old female here fr 1yr KUB done DX: Kidney Stone Dysuria: _no Incomplete bladder emptying: _no Hematuria: _no Frequency: _q2-3 hrs Urgency: _moderate, usually at night Nocturia: 2x Stream: _normal Leaking: _no Post void dripping: _no Wearing pads/ Depends: _no Urge incontinence: _no Stress incontinence: _no Incontinence without Sensory Awareness: _no Abdominal pain: _no Flank pain: _yes, not due to urinary issues Sexual complaints: _ Review of Systems PHQ Score Initial Depression Screen Score: 0 SCORE Physical Exam Vitals & Measurements HR: 6(Peripheral) BP: 128/84 HT: 61 in HT: 155 cm WT: 68 kg WT: 149.914 lb BMI: 28.3 Assessment/Plan Prior DLS pt. BBS 12 (13). Oxybutynin therapy managed by [employer], has not been taking it but has it at home if needed[1] UA shows trace intact hgb. This is chronic. Pt denies gross hematuria. 1. Kidney stones (N20.0: Calculus of kidney) S/p R stone extraction 11/01/20. Stone analysis - 80% ca ox mono, 20% ca ox di KUB 12/30/21 - Neg for stones. KUB 01/02/23 - 3 mm calculus over inferior aspect of the right kidney. KUB 04/07/23 [facility] - 7 mm calcification projecting over left L2 transverse process. GISSELLE 04/11/23 [facility] - Nonobstructing left nephrolithiasis. No hydro. Pt given MET. KUB 05/19/23 [facility] - 8 mm calcification just below the right L1 transverse process possibly a stone in right renal pelvis. 5.2 mm calcification LUP. GISSELLE 05/19/23 [facility] - No R obstructing nephrolithiasis or hydro. 3 mm nonobstructing left nephrolithiasis. CT 06/11/23 [facility] - NO renal or ureteral stones. 05/27/23: No longer taking Vit C or Ca+Vit D. Stopped both bc she was worried about stones. Pt inquired if she should continue to stay off of these for stone prevention. Urine pH today 5.0. Recommendedpt to restart the Ca+vitD as bone health takes priority over stone prevention at this time. TODAY: KUB 12/25/23 [facility] - neg for stones Denies flank pain, gross hematuria, UTIs since last visit. Litholink reviewed - 1) Great volume (>3L) 2) Slightly high calcium (277 vs <200 nl). Discussed Ca for bone health. Reduce Na in diet. Consider thiazide in future if forms new stones. 3) Low pH. Discussed this is only a risk factor for uric acid stones and she has not historically formed these. Consider Potassium Citrate in future if forms new stones. -No changes for now. Consider thiazide +/- potassium citrate if forms stones in future. -Return in 1 yr w KUB/GISSELLE prior. Ordered: Urnls Dip Stick Auto w/o Microscopy POC [id number] Follow-up With When Contact Information MARIANA DUONG PA-C, URL Within 1 year Additional Instructions: Patient Education Kidney Stones, Grzc-on-Kemb Problem List/Past Medical History Ongoing Arthritis High cholesterol Hypertension Kidney stones Historical No qualifying data Procedure/Surgical History Breast surgery, Colonoscopy, Hip replacement, Tubal ligation. Medications atorvastatin 20 mg Tab, Oral, Daily esomeprazole 40 mg Cap-EC, Oral, Daily hydrochlorothiazide 25 mg oral tablet, Oral, Daily Iron Chews, Oral, Daily losartan 100 mg Tab, Oral, Daily Probiotic 10 Ultra Strength, Oral, Daily Turmeric, Oral, Daily Vitamin B12 Vitamin D, Oral, BID Xanax, Oral, As Directed Allergies No Known Allergies Social History Alcohol - Low Risk, 01/24/2020 Never., 01/09/2024 Substance Abuse Never., 01/09/2024 Tobacco - Denies Tobacco Use, 01/24/2020 Former smoker, quit more than 30 days ago Tobacco Use:., 01/14/2024 Family History High cholesterol: Brother. Kidney stone: Brother. Lung cancer: Brother. Migraine: Mother. Uterine cancer: Mother. Immunizations Vaccine Date Status influenza, unspecified formulation 12/23/2022 Given influenza virus vaccine, inactivated 12/23/2022 Recorded SARS-CoV-2 (COVID-19) mRNAMUL.[id number] 11/23/2021 Recorded influenza virus vaccine, inactivated 11/20/2021 [...] 11/2019 Recorded zoster vaccine, inactivated 12/31/2017 Recorded zoster vaccine, inactivated 10/31/2017 Recorded diphtheria/pertussis, acel/tetanus adult 10/31/2017 Recorded zoster vaccine live 11/27/2016 Recorded diphtheria/pertussis, acel/tetanus adult 11/21/2016 Recorded Lab Results Ambulatory Point of Care Results Bilirubin Urine Dipstick: Negative (01/14/24 09:28:00) Blood Urine Dipstick: Trace-intact (01/14/24 09:28:00) Glucose Urine Dipstick: Negative (01/14/24 (more content not included)...Normal [facility] CenterComment on above:Result Comment: Electronically Signed By: MARIANA DUONG PA-C\Date and Time Signed: 01/13/2410:08 EST Alanine aminotransferase [Enzymatic activity/volume] in Serum or PlasmaOrdered By: Roma Pritchard on 14-17-2522UVO [Catalytic activity/Vol]36 U/L7-52[facility] TroyAlbumin [Mass/volume] in Serum or Plasma by Bromocresol green (BCG) dye binding methoOrdered By: Roma Pritchard on 32-23-1860Fpmsrfc BCG dye [Mass/Vol]4.6 g/dL3.5-5.7FTrumbull Memorial HospitalAlkaline phosphatase [Enzymatic activity/volume] in Serum or PlasmaOrdered By: Roma Pritchard on 93-94-2527ELS [Catalytic activity/Vol]69 U/C20-733ZflcnbokdKettering Health TroyAspartate aminotransferase [Enzymatic activity/volume] in Serum or PlasmaOrdered By: Roma Pritchard on 02-97-5141HPX [Catalytic activity/Vol]26 U/L 13-39[facility] TroyBasophils Auto (Bld) [#/Vol]Ordered By: Roma Pritchard on 29-55-3225Onjrdcrol (Bld) [#/Vol]0.0 10*3/uL0.0-0.2FTrumbull Memorial HospitalBasophils/100 WBC Auto (Bld)Ordered By: Roma Pritchard on 14-63-9691Qdtqpnigd/100 WBC (Bld)0.5 %.[facility] Bilirubin.total [Mass/volume] in Serum or PlasmaOrdered By: Roma Pritchard on 84-81-5543Rmviwpdvb [Mass/Vol]1.0 mg/dL0.3-1.0[facility] Calcium [Mass/volume] in Serum or PlasmaOrdered By: Roma Pritchard on 10-01-2023 Calcium [Mass/Vol]9.8 mg/dL8.6-10.3FTrumbull Memorial HospitalCarbon dioxide, total [Moles/volume] in Serum or PlasmaOrdered By: Roma Pritchard on 81-78-5509JN2 [Moles/Vol]28.3 mmol/L21.0-31.0[facility] Chloride [Moles/volume] in Serum or PlasmaOrdered By: Roma Pritchard on 10-01-2023 Chloride [Moles/Vol]104 mmol/T60-570YiooiylzsKettering Health TroyCholesterol [Mass/volume] in Serum or PlasmaOrdered By: Roma Pritchard on 10-01-2023 Cholesterol [Mass/Vol]146 mg/cH518-613TnrhiohkuKettering Health TroyComment on above:Chol less than 200 mg/dl low riskChol 201-239 mg/dl borderline riskChol 240 mg/dl and greater high riskCholesterol in LDL Calc [Mass/Vol]Ordered By: Roma Pritchard on 49-12-6434Ijkcmqzmoci in LDL [Mass/Vol]48 mg/dL0-100[facility] TroyComment on above:LDL ATP III CLASSIFICATIONLDL less than 100 mg/dL OptimalLDL 100-129 mg/dL Near or above mrodhgfQEP603-765 mg/dL Borderline highLDL 160-189 mg/dL HighLDL greater than 189 mg/dL Very high Cholesterol in VLDL Calc [Mass/Vol]Ordered By: Roma Pritchard on 10-01-2023 Cholesterol in VLDL [Mass/Vol]33 mg/dLKettering Health Troy Creatinine [Mass/volume] in Serum or PlasmaOrdered By: Roma Pritchard on 73-30-5493Dvosceqors [Mass/Vol]0.80 mg/dL0.60-1.20[facility] TroyEosinophils Auto (Bld) [#/Vol]Ordered By: Roma Pritchard on 10-01-2023 Eosinophils (Bld) [#/Vol]0.2 10*3/uL0.0-0.45[facility] Eosinophils/100 WBC Auto (Bld)Ordered By: Roma Pritchard on 10-01-2023 Eosinophils/100 WBC (Bld)2.7 %.[facility] TroyErythrocyte distribution width Auto (RBC) [Ratio]Ordered By: Roma Pritchard on 10-01-2023 Erythrocyte distribution width (RBC) [Ratio]14.0 %11.9-15.3FTrumbull Memorial HospitalFerritin [Mass/volume] in Serum or PlasmaOrdered By: Roma Pritchard on 53-63-8928Znsuqzqd [Mass/Vol]46.0 ng/mL11.0-306.8[facility] TroyFolate [Mass/volume] in Serum or PlasmaOrdered By: Roma Pritchard on 02-20-5447Xfezmz [Mass/Vol]16.6 ng/mL>5.9[facility] Comment on above:Folate reference range: >5.9 ng/mlThe WHO technical consultation on folate and vitamin u86lomwcfgkcvuo has determined that folate concentrations lessthan 4 ng/ml are considered deficient.Globulin Calc (S) [Mass/Vol]Ordered By: Roma Pritchard on 46-18-2709Bzdwrhnc (S) [Mass/Vol]2.4 g/dL [facility] TroyGlucose [Mass/volume] in Serum or PlasmaOrdered By: Roma Pritchard on 51-22-0538Ugsesjx [Mass/Vol]108 mg/oIUwqa80-444QwosbditmKettering Health TroyComment on above:ADA recommended reference rangeRandom Glucose Reference Range is dependent on time and content of last meal. Glucose of more than 200 mg/dL in a nonstressed, ambulatory subject supports the diagnosisof Diabetes Mellitus.Glucose mean value [Mass/volume] in Blood Estimated from glycated hemoglobinOrdered By: Roma Pritchard on 38-63-0278Ruedgxb glucose Estimated from glycated hemoglobin (Bld) [Mass/Vol]114 mg/dLKettering Health TroyHematocrit Auto (Bld) [Volume fraction]Ordered By: Roma Pritchard on 89-38-3020Jkukaqivob (Bld) [Volume fraction]40.8 %34.0-46.4FTrumbull Memorial HospitalHemoglobin A1c percentageOrdered By: Roma Pritchard on 32-48-5448JbZ2l (Bld) [Mass fraction]5.6 %4.3-5.6FTrumbull Memorial HospitalComment on above:Increased risk for diabetes: 5.7 - 6.4diabetes: >6.4glycemic control for adults with diabetes: <7.0Hemoglobin [Mass/volume] in BloodOrdered By: Roma Pritchard on 70-04-5415Drpsnwzjox (Bld) [Mass/Vol]13.5 g/dL11.8-15.4FTrumbull Memorial HospitalIron [Mass/volume] in Serum or PlasmaOrdered By: Roma Pritchard on 09-86-7539Pjqi [Mass/Vol]96 ug/yP71-208 [facility] TroyIron binding capacity [Mass/volume] in Serum or PlasmaOrdered By: Roma Pritchard on 35-02-7425Twuv binding capacity [Mass/Vol]455 ug/nXZcpw782-502IfrcowvptKettering Health TroyIron saturation [Mass Fraction] in Serum or PlasmaOrdered By: Roma Pritchard on 21-44-6599Vyju saturation [Mass fraction]21.1 %20-50[facility] TroyLeukocytes [#/volume] corrected for nucleated erythrocytes in Blood by Automated coun Ordered By: Roma Pritchard on 52-85-8742QIQ corrected for nucl RBC Auto (Bld) [#/Vol]6.6 10*3/uL3.8-11.6FTrumbull Memorial HospitalLymphocytes Auto (Bld) [#/Vol]Ordered By: Roma Pritchard on 36-53-4730Tbjeechvfsn (Bld) [#/Vol]1.3 10*3/uL1.00-4.8[facility] TroyLymphocytes/100 WBC Auto (Bld) Ordered By: Roma Pritchard on 76-08-0229Srszjvxvsbe/100 WBC (Bld)20.0 %.[facility] Auto (RBC) [Entitic mass]Ordered By: Roma Pritchard on 94-96-0585JRF (RBC) [Entitic mass]30.9 pg24.7-34.3FEast Ohio Regional HospitalHC Auto (RBC) [Mass/Vol]Ordered By: Roma Pritchard on 83-12-7176CIXW (RBC) [Mass/Vol]33.2 g/dL32.0-35.0[facility] TroyMCV Auto (RBC) [Entitic vol]Ordered By: Roma Pritchard on 52-07-6664VMW (RBC) [Entitic vol]93.2 qY32-308WhsolrqpnKettering Health TroyMonocytes Auto (Bld) [#/Vol]Ordered By: Roma Pritchard on 83-47-0643Lycojgnyw (Bld) [#/Vol]0.5 10*3/uL0.0-0.8[facility] TroyMonocytes/100 WBC Auto (Bld)Ordered By: Roma Pritchard on 82-55-0625Tsxpbirzg/100 WBC (Bld)8.1 %.[facility] Neutrophils Auto (Bld) [#/Vol]Ordered By: Roma Pritchard on 58-81-9234Wvabhcgelnp (Bld) [#/Vol]4.6 10*3/uL1.8-7.7FTrumbull Memorial HospitalNeutrophils/100 WBC Auto (Bld)Ordered By: Roma Pritchard on 04-58-5985Hxxjjlmneui/100 WBC (Bld) 68.7 %.[facility] TroyNo Panel InformationOrdered By: Roma Pritchard on 61-23-5798Foswkpvnr GFR (CKD-EPI)> 60.0 mL/MinKettering Health TroyPharmacy Creatinine Clearance (ChemN/AFTrumbull Memorial HospitalNucleated erythrocytes [Presence] in Blood by Automated countOrdered By: Roma Pritchard on 86-13-1718Apnmrkgde RBC Auto Ql (Bld)0.1 /100{WBC}0-0.5FTrumbull Memorial HospitalPlatelet mean volume Auto (Bld) [Entitic vol]Ordered By: Roma Pritchard on 11-08-6681Xqjdtnvo mean volume (Bld) [Entitic vol]10.1 fL 6.3-10.7FTrumbull Memorial HospitalPlatelets Auto (Bld) [#/Vol]Ordered By: Roma Pritchard on 81-78-4139Wbplxatmt (Bld) [#/Vol]226 10*3/rB711-799VldhrwyzcKettering Health TroyPotassium [Moles/volume] in Serum or PlasmaOrdered By: Roma Pritchard on 96-81-8473Wkbmlrzal [Moles/Vol]4.1 mmol/L3.5-5.1FTrumbull Memorial HospitalProtein [Mass/volume] in Serum or PlasmaOrdered By: Roma Pritchard on 23-87-3835Iqpcmnv [Mass/Vol]7.0 g/dL6.4-8.9[facility] TroyRBC Auto (Bld) [#/Vol]Ordered By: Roma Pritchard on 70-57-5336XJB (Bld) [#/Vol]4.37 10*6/uL3.60-5.00[facility] Centererum or plasma albumin/globulin mass ratioOrdered By: Roma Pritchard on 10-01-2023 Albumin/Globulin [Mass ratio]1.9 {ratio}[facility] Centererum or plasma anion gap determinationOrdered By: Roma Pritchard on 00-78-7888Svqdy gap [Moles/Vol]12.8 mmol/L6.0-15.0[facility] Centererum or plasma high density lipoprotein (HDL) cholesterol measurementOrdered By: Roma Pritchard on 10-47-0237Fayrmggqjix in HDL [Mass/Vol]65 mg/pS99-62CnfqvcdxaKettering Health TroyComment on above:HDL CHOL ATP-III CLASSIFICATION Cardiovascular RiskHDL > or equal to 60 mg/dL LOWHDL < 40 mg/dL HIGHSerum or plasma total cholesterol/high density lipoprotein (HDL) cholesterol mass ratOrdered By: Roma Pritchard on 30-54-4782Cxuvsxlpvzp.total/Cholesterol in HDL [Mass ratio]2.2 {ratio}<5.0[facility] Medical Centerodium [Moles/volume] in Serum or PlasmaOrdered By: Roma Pritchard on 68-25-0495Yeljzw [Moles/Vol]141 mmol/X855-611 [facility] TroyTransferrin [Mass/volume] in Serum or Plasma Ordered By: Roma Pritchard on 19-68-5539Heyhddgredc [Mass/Vol]325 mg/wH952-151 [facility] TroyTriglyceride [Mass/volume] in Serum or Plasma Ordered By: Roma Pritchard on 85-48-4665Hmjmzkeflmqe [Mass/Vol]166 mg/dLHigh0-149 [facility] TroyComment on above:TRIG ATP III CLASSIFICATIONTRIG less than 150 mg/dL NormalTRIG 150-199 mg/dL Borderline highTRIG 200-500 mg/dL High TRIG greater than 500 mg/dL Very highStandard traceable to the Center for Disease Conrtrol and Prevention (CDC) test method. Urea nitrogen [Mass/volume] in Serum or PlasmaOrdered By: Roma Pritchard on 46-20-4642Jgsk nitrogen [Mass/Vol]21 mg/dL7-[facility] Vitamin B12 ser/plasOrdered By: Roma Pritchard on 83-95-7249Evrydlvcc (Vitamin B12) [Mass/Vol]1062 pg/gVZvjk581-384UggveuipgKettering Health TroyVitamin D+Metabolites [Mass/volume] in Serum or PlasmaOrdered By: Roma Pritchard on 83-60-0891Plxyexk D+Metabolites [Mass/Vol]32.9 ng/cQ17-643OrbvunimlKettering Health TroyComment on above:VITAMIN D STATUS 25(OH)VITAMIN D RANGE (ng/mL) Deficient <20 Insufficient 20 to <41Hcnytrqnax37 to 100Reference: Bro MF,Salo NC, Iqra PAGE, et al. Evaluation,treatment, and prevention of vitamin D deficiency; an Endocrine Society clinical practice guideline. JCEM. 2010; 96(7):1911-30.WBC Auto (Bld) [#/Vol]Ordered By: Roma Pritchard on 20-99-2337FIT (Bld) [#/Vol]6.6 10*3/uL3.8-11.6FTrumbull Memorial Hospital Alanine aminotransferase [Enzymatic activity/volume] in Serum or PlasmaOrdered By: Roma Pritchard on 40-34-0326GDA [Catalytic activity/Vol]17 U/L7-52[facility] TroyAlbumin [Mass/volume] in Serum or Plasma by Bromocresol green (BCG) dye binding methoOrdered By: Roma Pritchard on 59-95-1171Eewldhp BCG dye [Mass/Vol]4.3 g/dL3.5-5.7FTrumbull Memorial HospitalAlkaline phosphatase [Enzymatic activity/volume] in Serum or PlasmaOrdered By: Roma Pritchard on 00-82-4377LBJ [Catalytic activity/Vol]74 U/W30-537OsvaqnijeKettering Health TroyAspartate aminotransferase [Enzymatic activity/volume] in Serum or PlasmaOrdered By: Roma Pritchard on 47-46-4543CKK [Catalytic activity/Vol]16 U/L 13-39[facility] TroyBasophils Auto (Bld) [#/Vol]Ordered By: Roma Pritchard on 21-80-4243Naehffmje (Bld) [#/Vol]0.0 10*3/uL0.0-0.2FTrumbull Memorial HospitalBasophils/100 WBC Auto (Bld)Ordered By: Roma Pritchard on 10-89-9290Hzcorlhjj/100 WBC (Bld)0.7 %.[facility] Bilirubin.total [Mass/volume] in Serum or PlasmaOrdered By: Roma Pritchard on 22-89-3925Bgrpbufgw [Mass/Vol]0.6 mg/dL0.3-1.0[facility] Calcium [Mass/volume] in Serum or PlasmaOrdered By: Roma Pritchard on 03-25-2023 Calcium [Mass/Vol]9.8 mg/dL8.6-10.3FTrumbull Memorial HospitalCarbon dioxide, total [Moles/volume] in Serum or PlasmaOrdered By: Roma Pritchard on 92-76-9432ZC3 [Moles/Vol]33.1 mmol/L21.0-31.0[facility] Chloride [Moles/volume] in Serum or PlasmaOrdered By: Roma Pritchard on 03-25-2023 Chloride [Moles/Vol]103 mmol/L66-458YwgfsgicfKettering Health TroyCholesterol [Mass/volume] in Serum or PlasmaOrdered By: Roma Pritchard on 03-25-2023 Cholesterol [Mass/Vol]162 mg/dM016-306SgzyygshbKettering Health TroyComment on above:Chol less than 200 mg/dl low riskChol 201-239 mg/dl borderline riskChol 240 mg/dl and greater high riskCholesterol in LDL Calc [Mass/Vol]Ordered By: Roma Pritchard on 08-44-5162Knvhecwxgzk in LDL [Mass/Vol]60 mg/dL0-100[facility] TroyComment on above:LDL ATP III CLASSIFICATIONLDL less than 100 mg/dL OptimalLDL 100-129 mg/dL Near or above olfhzakVUU714-914 mg/dL Borderline highLDL 160-189 mg/dL HighLDL greater than 189 mg/dL Very high Cholesterol in VLDL Calc [Mass/Vol]Ordered By: Roma Pritchard on 03-25-2023 Cholesterol in VLDL [Mass/Vol]19 mg/dLKettering Health Troy Creatinine [Mass/volume] in Serum or PlasmaOrdered By: Roma Pritchard on 84-65-7960Diysvobthp [Mass/Vol]0.76 mg/dL0.60-1.20[facility] TroyEosinophils Auto (Bld) [#/Vol]Ordered By: Roma Pritchard on 03-25-2023 Eosinophils (Bld) [#/Vol]0.1 10*3/uL0.0-0.45[facility] Eosinophils/100 WBC Auto (Bld)Ordered By: Roma Pritchard on 03-25-2023 Eosinophils/100 WBC (Bld)1.8 %.[facility] TroyErythrocyte distribution width Auto (RBC) [Ratio]Ordered By: Roma Pritchard on 03-25-2023 Erythrocyte distribution width (RBC) [Ratio]14.2 %11.9-15.3FTrumbull Memorial HospitalFerritin [Mass/volume] in Serum or PlasmaOrdered By: Roma Pritchard on 31-45-4187Uxhghqri [Mass/Vol]19.7 ng/mL11.0-306.8[facility] TroyFolate [Mass/volume] in Serum or PlasmaOrdered By: Roma Pritchard on 31-61-4601Hmzeme [Mass/Vol]15.8 ng/mL>5.9[facility] Comment on above:Folate reference range: >5.9 ng/mlThe WHO technical consultation on folate and vitamin p25yeqoipzwvxzz has determined that folate concentrations lessthan 4 ng/ml are considered deficient.Globulin Calc (S) [Mass/Vol]Ordered By: Roma Pritchard on 02-14-9667Qojcrpoc (S) [Mass/Vol]2.6 g/dL [facility] TroyGlucose [Mass/volume] in Serum or PlasmaOrdered By: Roma Pritchard on 18-48-2647Nademgu [Mass/Vol]96 mg/rY67-106EfpxqtamyKettering Health TroyComment on above:ADA recommended reference rangeRandom Glucose Reference Range is dependent on time and content of last meal. Glucose of more than 200 mg/dL in a nonstressed, ambulatory subject supports the diagnosisof Diabetes Mellitus.Glucose mean value [Mass/volume] in Blood Estimated from glycated hemoglobinOrdered By: Roma Pritchard on 65-72-5655Kslknrs glucose Estimated from glycated hemoglobin (Bld) [Mass/Vol]114 mg/dLKettering Health TroyHematocrit Auto (Bld) [Volume fraction]Ordered By: oRma Pritchard on 07-10-3253Clzfndcjaf (Bld) [Volume fraction]39.7 %34.0-46.4FTrumbull Memorial HospitalHemoglobin A1c percentageOrdered By: Roma Pritchard on 42-75-4955MnF2f (Bld) [Mass fraction]5.6 %4.3-5.6FTrumbull Memorial HospitalComment on above:Increased risk for diabetes: 5.7 - 6.4diabetes: >6.4glycemic control for adults with diabetes: <7.0Hemoglobin [Mass/volume] in BloodOrdered By: Roma Pritchard on 14-32-4748Ikdfakarej (Bld) [Mass/Vol]13.2 g/dL11.8-15.4FTrumbull Memorial HospitalIron [Mass/volume] in Serum or PlasmaOrdered By: Roma Pritchard on 56-72-1625Davt [Mass/Vol]77 ug/vE35-515 [facility] TroyIron binding capacity [Mass/volume] in Serum or PlasmaOrdered By: Roma Pritchard on 95-89-5024Uhlk binding capacity [Mass/Vol]497 ug/sB039-982GwlreydyzKettering Health TroyIron saturation [Mass Fraction] in Serum or PlasmaOrdered By: Roma Pritchard on 12-58-7448Qllq saturation [Mass fraction]15.5 %20-50[facility] TroyLeukocytes [#/volume] corrected for nucleated erythrocytes in Blood by Automated counOrdered By: Roma Pritchard on 94-60-5545REO corrected for nucl RBC Auto (Bld) [#/Vol]6.2 10*3/uL 3.8-11.6FTrumbull Memorial HospitalLymphocytes Auto (Bld) [#/Vol]Ordered By: Roma Pritchard on 87-06-9407Xbbqlvhrfob (Bld) [#/Vol]1.6 10*3/uL1.00-4.8 [facility] TroyLymphocytes/100 WBC Auto (Bld)Ordered By: Roma Pritchard on 57-11-7529Oviwwebicqb/100 WBC (Bld)26.5 %.[facility] TroyMCH Auto (RBC) [Entitic mass]Ordered By: Roma Pritchard on 46-88-7484ZRL (RBC) [Entitic mass]31.0 pg24.7-34.3FTrumbull Memorial HospitalMCHC Auto (RBC) [Mass/Vol]Ordered By: Roma Pritchard on 87-86-6154WBCG (RBC) [Mass/Vol]33.4 g/dL32.0-35.0[facility] TroyMCV Auto (RBC) [Entitic vol] Ordered By: Roma Pritchard on 25-79-4301TMK (RBC) [Entitic vol]93.0 mY91-955 [facility] TroyMonocytes Auto (Bld) [#/Vol]Ordered By: Roma Pritchard on 26-18-7098Rzkasyjye (Bld) [#/Vol]0.4 10*3/uL0.0-0.8[facility] TroyMonocytes/100 WBC Auto (Bld)Ordered By: Roma Pritchard on 03-25-2023 Monocytes/100 WBC (Bld)7.1 %.[facility] TroyNeutrophils Auto (Bld) [#/Vol]Ordered By: Roma Pritchard on 11-95-9526Efzxujkambj (Bld) [#/Vol]3.9 10*3/uL1.8-7.7FTrumbull Memorial HospitalNeutrophils/100 WBC Auto (Bld) Ordered By: Roma Pritchard on 76-48-4657Xlwbxmkyzoj/100 WBC (Bld)63.9 %.[facility] TroyNo Panel InformationOrdered By: Roma Pritchard on 06-88-7176Ekovuwfls GFR (CKD-EPI)> 60.0 mL/MinKettering Health Troy Pharmacy Creatinine Clearance (ChemN/AFTrumbull Memorial HospitalNucleated erythrocytes [Presence] in Blood by Automated countOrdered By: Roma Pritchard on 05-04-1423Vicniyttv RBC Auto Ql (Bld)0.1 /100{WBC}0-0.5FTrumbull Memorial HospitalPlatelet mean volume Auto (Bld) [Entitic vol]Ordered By: Roma Pritchard on 51-84-5412Fmtpfond mean volume (Bld) [Entitic vol]9.6 fL6.3-10.7 [facility] TroyPlatelets Auto (Bld) [#/Vol]Ordered By: Roma Pritchard on 36-67-6835Ywkrjaaiz (Bld) [#/Vol]248 10*3/tK723-443ZyfqjphbfKettering Health TroyPotassium [Moles/volume] in Serum or PlasmaOrdered By: Roma Pritchard on 75-47-2504Ibwbboeid [Moles/Vol]4.0 mmol/L3.5-5.1FTrumbull Memorial HospitalProtein [Mass/volume] in Serum or PlasmaOrdered By: Roma Pritchard on 69-80-2068Ohgdeft [Mass/Vol]6.9 g/dL6.4-8.9[facility] RBC Auto (Bld) [#/Vol]Ordered By: Roma Pritchard on 76-11-9865KBX (Bld) [#/Vol] 4.27 10*6/uL3.60-5.00[facility] Centererum or plasma albumin/globulin mass ratioOrdered By: Roma Pritchard on 03-25-2023 Albumin/Globulin [Mass ratio]1.7 {ratio}[facility] Centererum or plasma anion gap determinationOrdered By: Roma Pritchard on 14-36-5618Igiyr gap [Moles/Vol]9.9 mmol/L6.0-15.0[facility] Centererum or plasma high density lipoprotein (HDL) cholesterol measurementOrdered By: Roma Pritchard on 02-02-3600Ksmlmjtmeap in HDL [Mass/Vol]83 mg/cM20-02YdkkeeqkoKettering Health TroyComment on above:HDL CHOL ATP-III CLASSIFICATION Cardiovascular RiskHDL > or equal to 60 mg/dL LOWHDL < 40 mg/dL HIGHSerum or plasma total cholesterol/high density lipoprotein (HDL) cholesterol mass ratOrdered By: Roma Pritchard on 09-32-5691Zeqykeueyeg.total/Cholesterol in HDL [Mass ratio]2.0 {ratio}<5.0[facility] Medical Centerodium [Moles/volume] in Serum or PlasmaOrdered By: Roma Pritchard on 77-01-2183Plqlvl [Moles/Vol]142 mmol/V866-062 [facility] TroyThyrotropin [Units/volume] in Serum or Plasma Ordered By: Roma Pritchard on 54-29-6090ZIW Qn1.73 m[IU]/L0.45-5.33[facility] TroyTransferrin [Mass/volume] in Serum or PlasmaOrdered By: Roma Pritchard on 49-51-0625Acihkraikbe [Mass/Vol]355 mg/aB802-311UmlezrgtgKettering Health TroyTriglyceride [Mass/volume] in Serum or PlasmaOrdered By: Roma Pritchard on 85-32-1487Cppgbpfxlntp [Mass/Vol]95 mg/dL0-149[facility] TroyComment on above:TRIG ATP III CLASSIFICATIONTRIG less than 150 mg/dL NormalTRIG 150-199 mg/dL Borderline highTRIG 200-500 mg/dL High TRIG greater than 500 mg/dL Very highStandard traceable to the Center for Disease Co nrtrol and Prevention (CDC) test method.Urea nitrogen [Mass/volume] in Serum or PlasmaOrdered By: Roma Pritchard on 03-24-7355Zecw nitrogen [Mass/Vol]18 mg/dL7-25 [facility] TroyVitamin B12 ser/plasOrdered By: Roma Pritchard on 81-77-0512Vgxjzytuf (Vitamin B12) [Mass/Vol]595 pg/jN634-972TnvydclmbKettering Health TroyVitamin D+Metabolites [Mass/volume] in Serum or PlasmaOrdered By: Roma Pritchard on 22-35-8661Ypqyxyf D+Metabolites [Mass/Vol]30.6 ng/mB59-818 [facility] TroyComment on above:VITAMIN D STATUS 25(OH)VITAMIN D RANGE (ng/mL) Deficient <20 Insufficient 20 to <34Adxoxmwjip30 to 100Reference: Bro MF,Salo NC, Iqra PAGE, et al. Evaluation,treatment, and prevention of vitamin D deficiency; an Endocrine Society clinical practice guideline. JCEM. 2010; 96(7):1911-30.WBC Auto (Bld) [#/Vol]Ordered By: Roma Pritchard on 44-72-4035JBN (Bld) [#/Vol]6.2 10*3/uL 3.8-11.6FTrumbull Memorial HospitalBasophils Auto (Bld) [#/Vol]Ordered By: Roma Pritchard on 97-97-2796Uzretjxgk (Bld) [#/Vol]0.0 10*3/uL0.0-0.2FTrumbull Memorial HospitalBasophils/100 WBC Auto (Bld)Ordered By: Roma Pritchard on 71-06-9594Bbqwipfsx/100 WBC (Bld)0.6 %.[facility] Eosinophils Auto (Bld) [#/Vol]Ordered By: Roma Pritchard on 41-52-2636Nwdxgtrquit (Bld) [#/Vol]0.3 10*3/uL0.0-0.45[facility] TroyEosinophils/100 WBC Auto (Bld)Ordered By: Roma Prtichard on 94-43-6152Wzszgkufyvv/100 WBC (Bld) 4.1 %.[facility] TroyErythrocyte distribution width Auto (RBC) [Ratio]Ordered By: Roma Pritchard on 70-08-7865Anfjgkxejbh distribution width (RBC) [Ratio]14.4 %11.9-15.3FTrumbull Memorial HospitalFerritin [Mass/volume] in Serum or PlasmaOrdered By: Roma Pritchard on 11-39-6474Llzoplem [Mass/Vol]31.9 ng/mL11.0-306.8[facility] TroyFolate [Mass/volume] in Serum or PlasmaOrdered By: Roma Pritchard on 83-72-9352Rbflnv [Mass/Vol]10.7 ng/mL>5.9[facility] TroyComment on above:Folate reference range: >5.9 ng/mlThe WHO technical consultation on folate and vitamin h06cprgxpehchzt has determined that folate concentrations lessthan 4 ng/ml are considered deficient.Hematocrit Auto (Bld) [Volume fraction]Ordered By: Roma Pritchard on 00-45-5930Jkigtllibp (Bld) [Volume fraction]37.7 %34.0-46.4FTrumbull Memorial HospitalHemoglobin [Mass/volume] in BloodOrdered By: Roma Pritchard on 82-43-4296Pwtjcvkhrj (Bld) [Mass/Vol]12.4 g/dL11.8-15.4FTrumbull Memorial HospitalIron [Mass/volume] in Serum or PlasmaOrdered By: Roma Pritchard on 91-53-8520Ffkz [Mass/Vol]51 ug/bM56-159CcpinqyrdKettering Health TroyIron binding capacity [Mass/volume] in Serum or PlasmaOrdered By: Roma Pritchard on 72-09-8176Biyw binding capacity [Mass/Vol]440 ug/jU021-325WcaodrmorKettering Health TroyIron saturation [Mass Fraction] in Serum or PlasmaOrdered By: Roma Pritchard on 80-24-9866Arrb saturation [Mass fraction]11.6 %20-50[facility] TroyLeukocytes [#/volume] corrected for nucleated erythrocytes in Blood by Automated counOrdered By: Roma Pritchard on 52-85-9481CIJ corrected for nucl RBC Auto (Bld) [#/Vol]6.4 10*3/uL3.8-11.6FTrumbull Memorial HospitalLymphocytes Auto (Bld) [#/Vol]Ordered By: Roma Pritchard on 30-18-2747Lzmnhccjaiw (Bld) [#/Vol]1.7 10*3/uL1.00-4.8[facility] TroyLymphocytes/100 WBC Auto (Bld)Ordered By: Roma Pritchard on 12-26-2022 Lymphocytes/100 WBC (Bld)27.1 %.[facility] Auto (RBC) [Entitic mass]Ordered By: Roma Pritchard on 87-42-7081CYU (RBC) [Entitic mass]30.1 pg24.7-34.3FEast Ohio Regional HospitalHC Auto (RBC) [Mass/Vol]Ordered By: Roma Pritchard on 06-82-2942OSCI (RBC) [Mass/Vol]32.8 g/dL32.0-35.0[facility] TroyMCV Auto (RBC) [Entitic vol]Ordered By: Roma Pritchard on 05-66-6575GRM (RBC) [Entitic vol]91.7 aO17-341XsbwyeezlKettering Health Troy Monocytes Auto (Bld) [#/Vol]Ordered By: Roma Pritchard on 68-71-3987Siupizcmu (Bld) [#/Vol]0.5 10*3/uL0.0-0.8[facility] TroyMonocytes/100 WBC Auto (Bld)Ordered By: Roma Pritchard on 33-99-7140Pxojkunog/100 WBC (Bld)8.0 % .[facility] TroyNeutrophils Auto (Bld) [#/Vol]Ordered By: Roma Pritchard on 00-47-7762Oawawbrboyb (Bld) [#/Vol]3.8 10*3/uL1.8-7.7FTrumbull Memorial HospitalNeutrophils/100 WBC Auto (Bld)Ordered By: Roma Pritchard on 76-94-9249Clfhiknuvcx/100 WBC (Bld)60.2 %.[facility] Nucleated erythrocytes [Presence] in Blood by Automated countOrdered By: Roma Pritchard on 41-13-3865Mjvtlpkud RBC Auto Ql (Bld)0.0 /100{WBC}0-0.5FTrumbull Memorial HospitalPlatelet mean volume Auto (Bld) [Entitic vol]Ordered By: Roma Pritchard on 50-15-3969Tyxmsdzy mean volume (Bld) [Entitic vol]9.8 fL6.3-10.7 [facility] TroyPlatelets Auto (Bld) [#/Vol]Ordered By: Roma Pritchard on 72-21-4645Mjirrahmh (Bld) [#/Vol]255 10*3/eS436-674EomoqewthKettering Health TroyRBC Auto (Bld) [#/Vol]Ordered By: Roma Pritchard on 83-34-4606KRI (Bld) [#/Vol]4.11 10*6/uL3.60-5.00[facility] TroyTransferrin [Mass/volume] in Serum or PlasmaOrdered By: Roma Pritchard on 12-26-2022 Transferrin [Mass/Vol]314 mg/gN654-388PdwhfsoqnKettering Health TroyVitamin B12 ser/plasOrdered By: Roma Pritchard on 33-98-7044Ljuemlbky (Vitamin B12) [Mass/Vol]351 pg/rZ897-001YleftplelKettering Health TroyVitamin D+Metabolites [Mass/volume] in Serum or PlasmaOrdered By: Roma Pritchard on 40-43-9907Afoqvhj D+Metabolites [Mass/Vol]38.1 ng/jH50-270TkcxwocefKettering Health TroyComment on above:VITAMIN D STATUS 25(OH)VITAMIN D RANGE (ng/mL) Deficient <20 Insufficient 20 to <74Tmnalnipkz13 to 100Reference: Bro MF,Salo NC, Iqra PAGE, et al. Evaluation,treatment, and prevention of vitamin D deficiency; an Endocrine Society clinical practice guideline. JCEM. 2010; 96 (7):1911-30.WBC Auto (Bld) [#/Vol]Ordered By: Roma Pritchard on 65-43-9780AYF (Bld) [#/Vol]6.4 10*3/uL3.8-11.6FTrumbull Memorial HospitalXR hip RT min 2V(w/wo pelvis)*on 20-08-7453CR hip RT min 2V(w/wo pelvis)*[facility] [employer] Other XR hip RT min 2V(w/wo pelvis)*[facility] [employer] Other XR hip RT min 2V(w/wo pelvis)*[address] [facility] [employer] Other XR hip RT min 2V(w/wo pelvis)*[place], [place] [address]Utyvn [employer] Other XR hip RT min 2V(w/wo pelvis)*[facility] [employer] Other XR hip RT min 2V(w/wo pelvis)*[facility] Other XR hip RT min 2V(w/wo pelvis)*Patient: Teagan Gonsales MR#: [id number] [employer] Other XR hip RT min 2V(w/wo pelvis)*[id number] [employer] Other XR hip RT min 2V(w/wo pelvis)*: 1955 Acct:[id number] [employer] Other XR hip RT min 2V(w/wo pelvis)*Age/Sex: 67 / F ADM Date: 12/17/22[facility] Other XR hip RT min 2V(w/wo pelvis)*[place] [facility] [place] [facility]Ser[facility] Other XR hip RT min 2V(w/wo pelvis)*Attending Dr: Ar Herman II, MDBlueprint Medicines [employer] Other XR hip RT min 2V(w/wo pelvis)*Copies to: Ar Herman MDEpiphany Other XR hip RT min 2V(w/wo pelvis)*Ordering Provider: Ar Herman MDEpiphany Other XR hip RT min 2V(w/wo pelvis)*Date of Service: 12/17/22[place] [employer] Other XR hip RT min 2V(w/wo pelvis)* XR/XR hip RT min 2V(w/wo pelvis)*: Aftercare following joint replacementC[place] [employer] Other XR hip RT min 2V(w/wo pelvis)*surgery;[facility] [employer] Other XR hip RT min 2V(w/wo pelvis)*RIGHT HIP - 2 views: 1 view pelvisCanton [employer] Other XR hip RT min 2V(w/wo pelvis)*CLINICAL HISTORY: [facility] RT min 2V(w/wo pelvis)*COMPARISON: Hip series 11/04/2022[facility] Other XR hip RT min 2V(w/wo pelvis)*FINDINGS: No evidence of hardware complication or acute bony process. Degenerative changes seenC[place] [facility] Other XR hip RT min 2V(w/wo pelvis)*involving the visualized lower lumbar spine. Mild degenerative changes left hip.[facility] Other XR hip RT min 2V(w/wo pelvis)* XR/XR hip RT min 2V(w/wo pelvis)*[facility] Other XR hip RT min 2V(w/wo pelvis)*IMPRESSION:[facility] Other XR hip RT min 2V(w/wo pelvis)*NO EVIDENCE OF HARDWARE COMPLICATION..[facility] Other XR hip RT min 2V(w/wo pelvis)*Impression dictated by: Martin Ruano Jr., D.ONkechi12/17/2022 4:12 [facility] [employer] Other XR hip RT min 2V(w/wo pelvis)*Dictation Location: [id number] [employer] Other XR hip RT min 2V(w/wo pelvis)*Transcribed By: [facility] 12[facility]17[facility]22 [facility] Other [facility]R hip RT min 2V(w/wo pelvis)*Dictated By: Martin Ruano Jr DO 12/17/22 [facility] Other XR hip RT min 2V(w/wo pelvis)*Signed By:[facility] Other XR hip RT min 2V(w/wo pelvis)*12/17/22 [facility] Other Amphetamine Screen Ql (U)Ordered By: Moo Saxena on [id number] Ql (U)NegativeNegOhioHealth Shelby HospitalBarbiturates [Presence] in Urine by Screen methodOrdered By: Moo Saxena on [id number] Screen Ql (U)NegativeNegOhioHealth Shelby HospitalBenzodiazepines Screen Ql (U)Ordered By: Moo Saxena on [id number] Ql (U)NegativeNegativeKettering Health TroyBenzoylecgonine [Presence] in Urine by Screen methodOrdered By: Moo Saxena on [id number] Screen Ql (U)NegativeNegative [facility] TroyCannabinoids [Presence] in Urine by Screen methodOrdered By: Moo Saxena on [id number] Screen Ql (U) PositiveNegativeKettering Health TroyComment on above:These are unconfirmed results and should not be used for legal purposes. Drug Cut-Off Concentration: AMPH 1000 ng/mL SHIVANI 200 ng/mL TRESA 200 ng/mL COCM 300 ng/mL OP 300 ng/mL PCP 25 ng/mL THC 20 ng/mLOpiates [Presence] in Urine by Screen method Ordered By: Moo Saxena on 87-93-7260Icoevnr Screen Ql (U)NegativeNegative [facility] TroyPhencyclidine Screen Ql (U)Ordered By: Moo Saxena on 61-95-0451Rdxwzepgyrhbq Ql (U)NegativeNegativeKettering Health TroyBasophils Auto (Bld) [#/Vol]Ordered By: Ar Herman on 72-74-0712Umwhzolbe (Bld) [#/Vol]0.0 10*3/uL0.0-0.2FTrumbull Memorial HospitalBasophils/100 WBC Auto (Bld)Ordered By: Ar Herman on 10-17-2022 Basophils/100 WBC (Bld)0.5 %.[facility] TroyBilirubin Test strip Ql (U)Ordered By: Ar Herman on 48-73-7962Xqojzsojm Ql (U)Negative NegativeKettering Health TroyCalcium [Mass/volume] in Serum or PlasmaOrdered By: Ar Herman on 85-61-1772Fojagvo [Mass/Vol]10.4 mg/dL 8.6-10.3FTrumbull Memorial HospitalCarbon dioxide, total [Moles/volume] in Serum or PlasmaOrdered By: Ar Herman on 01-49-5141GI7 [Moles/Vol]32.1 mmol/L21.0-31.0[facility] TroyChloride [Moles/volume] in Serum or PlasmaOrdered By: Ar Herman on 39-29-7196Aoomiosj [Moles/Vol]102 mmol/P54-582WkvrthmdkKettering Health TroyColor Auto (U)Ordered By: Ar Herman on 03-97-1568Wjzmv (U)YellowYellowKettering Health Troy Creatinine [Mass/volume] in Serum or PlasmaOrdered By: Ar Herman on 91-05-7852Oxixsbwrak [Mass/Vol]0.73 mg/dL0.60-1.20[facility] TroyEosinophils Auto (Bld) [#/Vol]Ordered By: Ar Herman on 10-17-2022 Eosinophils (Bld) [#/Vol]0.1 10*3/uL0.0-0.45[facility] Eosinophils/100 WBC Auto (Bld)Ordered By: Ar Herman on 10-17-2022 Eosinophils/100 WBC (Bld)1.9 %.[facility] TroyErythrocyte distribution width Auto (RBC) [Ratio]Ordered By: Ar Herman on 10-17-2022 Erythrocyte distribution width (RBC) [Ratio]14.9 %11.9-15.3FTrumbull Memorial HospitalFructosamine [Moles/volume] in Serum or PlasmaOrdered By: Ar Herman on 02-90-9490Fxuldtwantkx [Moles/Vol]237 umol/L0-285[facility] TroyComment on above:Published reference interval for apparently healthysubjects between age 20 and 60 is 205 - 285 umol/L and in apoorly controlled diabetic population is 228 - 563 umol/Lwith a mean of 396 umol/L.Performed at: [facility] [id number] Director: Tripp Tejada PhD, Phone: [phone] [Mass/volume] in Serum or PlasmaOrdered By: Ar Herman on 92-15-0733Ajggmet [Mass/Vol]81 mg/nH08-625NacoizcitKettering Health TroyComment on above:ADA recommended reference rangeRandom Glucose Reference Range is dependent on time and content of last meal. Glucose of more than 200 mg/dL in a nonstressed, ambulatory subject supports the diagnosisof Diabetes Mellitus.Hematocrit Auto (Bld) [Volume fraction]Ordered By: Ar Herman on 58-18-0288Wvbbdorxft (Bld) [Volume fraction]39.9 %34.0-46.4FTrumbull Memorial HospitalHemoglobin [Mass/volume] in BloodOrdered By: Ar Herman on 65-02-4543Ncqfdgkros (Bld) [Mass/Vol]13.1 g/dL11.8-15.4FTrumbull Memorial HospitalKetones Auto test strip (U) [Mass/Vol]Ordered By: Ar Herman on 67-17-4804Hebgeoh (U) [Mass/Vol]NegativeNegativeKettering Health TroyLeukocytes [#/volume] corrected for nucleated erythrocytes in Blood by Automated counOrdered By: Ar Herman on 72-82-2883HPX corrected for nucl RBC Auto (Bld) [#/Vol]6.2 10*3/uL3.8-11.6FTrumbull Memorial HospitalLymphocytes Auto (Bld) [#/Vol] Ordered By: Ar Herman on 58-85-3226Efijhrdwmbf (Bld) [#/Vol]1.6 10*3/uL 1.00-4.8[facility] TroyLymphocytes/100 WBC Auto (Bld)Ordered By: Ar Herman on 60-48-4950Asahlzetgsz/100 WBC (Bld)26.2 %.[facility] HospitalH Auto (RBC) [Entitic mass]Ordered By: Ar Herman on 74-74-6701GCS (RBC) [Entitic mass]29.8 pg24.7-34.3FTrumbull Memorial HospitalMCHC Auto (RBC) [Mass/Vol]Ordered By: Ar Herman on 92-13-6131XONE (RBC) [Mass/Vol]32.9 g/dL32.0-35.0[facility] TroyMCV Auto (RBC) [Entitic vol]Ordered By: Ar Herman on 70-18-4137LRY (RBC) [Entitic vol]90.4 nX50-446KryechjwaKettering Health TroyMonocytes Auto (Bld) [#/Vol] Ordered By: Ar Herman on 40-50-2873Hijsfuudz (Bld) [#/Vol]0.5 10*3/uL 0.0-0.8[facility] TroyMonocytes/100 WBC Auto (Bld)Ordered By: Ar Herman on 09-78-0615Otqjsgmiu/100 WBC (Bld)8.4 %.[facility] TroyNeutrophils Auto (Bld) [#/Vol]Ordered By: Ar Herman on 69-80-9056Fpikjicmjbm (Bld) [#/Vol]3.9 10*3/uL1.8-7.7FTrumbull Memorial HospitalNeutrophils/100 WBC Auto (Bld)Ordered By: Ar Herman on 10-17-2022 Neutrophils/100 WBC (Bld)63.0 %.[facility] TroyNitrite Test strip Ql (U)Ordered By: Ar Herman on 92-76-3309Wtoagzm Ql (U)Negative NegativeKettering Health TroyNo Panel InformationOrdered By: Ar Herman on 84-50-0744Rbvnekilc GFR (CKD-EPI)> 60.0 mL/MinKettering Health TroyPharmacy Creatinine Clearance (ChemN/AFTrumbull Memorial HospitalNucleated erythrocytes [Presence] in Blood by Automated countOrdered By: Ar Herman on 29-04-9510Fnsofpanp RBC Auto Ql (Bld)0.2 /100{WBC}0-0.5 [facility] TroyPlatelet mean volume Auto (Bld) [Entitic vol] Ordered By: Ar Herman on 47-37-7961Wrnabaxm mean volume (Bld) [Entitic vol]9.9 fL6.3-10.7FTrumbull Memorial HospitalPlatelets Auto (Bld) [#/Vol] Ordered By: Ar Herman on 00-46-4260Jvsnvqsyp (Bld) [#/Vol]245 10*3/uL 150-450[facility] TroyPotassium [Moles/volume] in Serum or PlasmaOrdered By: Ar Herman on 89-61-6188Msxzkynll [Moles/Vol]4.2 mmol/L 3.5-5.1FTrumbull Memorial HospitalProtein Auto test strip (U) [Mass/Vol] Ordered By: Ar Herman on 92-27-3813Khylzxr (U) [Mass/Vol]NegativeNegative [facility] TroyRBC Auto (Bld) [#/Vol]Ordered By: Ar Herman on 92-84-3386FVH (Bld) [#/Vol]4.42 10*6/uL3.60-5.00[facility] Medical Centererum or plasma anion gap determinationOrdered By: Ar Herman on 93-84-8007Isimu gap [Moles/Vol]10.1 mmol/L6.0-15.0[facility] Centerodium [Moles/volume] in Serum or PlasmaOrdered By: Ar Herman on 92-12-6833Gefarj [Moles/Vol]140 mmol/P877-652BchwtilwuKettering Health Troy Specific gravity Auto test strip (U) [Rel density]Ordered By: Ar Herman on 31-39-2691Myjldunj gravity (U) [Rel density]1.0181.001-1.030[facility] TroyUrea nitrogen [Mass/volume] in Serum or PlasmaOrdered By: Ar Herman on 52-19-1983Uxxq nitrogen [Mass/Vol]23 mg/dL7-25[facility] TroyUrine clarity by refractometry automatedOrdered By: Ar Herman on 38-14-8694Bxgirjj Refractometry automated (U)ClearCleOhio State Harding HospitalUrine glucose measurement by automated test strip (mass/volume)Ordered By: Ar Herman on 14-22-2891Zsjnnxj Auto test strip (U) [Mass/Vol]Normal mg/dLNormalKettering Health TroyUrine hemoglobin detection by automated test stripOrdered By: Ar Herman on 56-93-6173Rnxoosmhva Auto test strip Ql (U)NegativeNegOhioHealth Shelby HospitalUrine leukocyte esterase detection by automated test stripOrdered By: Ar Herman on 34-05-3202Lficbbhsw esterase Auto test strip Ql (U) NegativeNegOhioHealth Shelby HospitalUrobilinogen Auto test strip (U) [Mass/Vol]Ordered By: Ar Herman on 83-05-5552Xnhjypmelyfn (U) [Mass/Vol]Normal mg/dLNormalKettering Health TroyWBC Auto (Bld) [#/Vol]Ordered By: Ar Herman on 11-39-4888BIU (Bld) [#/Vol]6.2 10*3/uL 3.8-11.6FTrumbull Memorial HospitalpH Auto test strip (U)Ordered By: Ar Herman on 73-63-7599eU (U)6.5 [pH]5.0-9.0[facility] TroyAlanine aminotransferase [Enzymatic activity/volume] in Serum or Plasma Ordered By: Roam Pritchard on 55-35-2562GTO [Catalytic activity/Vol]17 U/L7-52 [facility] TroyAlbumin [Mass/volume] in Serum or Plasma by Bromocresol green (BCG) dye binding methoOrdered By: Roma Pritchard on 09-15-2022 Albumin BCG dye [Mass/Vol]4.4 g/dL3.5-5.7FTrumbull Memorial Hospital Alkaline phosphatase [Enzymatic activity/volume] in Serum or PlasmaOrdered By: Roma Pritchard on 24-91-8060NIH [Catalytic activity/Vol]69 U/U77-059DisfpxaltKettering Health TroyAspartate aminotransferase [Enzymatic activity/volume] in Serum or PlasmaOrdered By: Roma Pritchard on 36-49-1555COV [Catalytic activity/Vol]19 U/Y58-66ZndblpnupKettering Health TroyBasophils Auto (Bld) [#/Vol]Ordered By: Roma Pritchard on 43-23-2846Tmeyackfa (Bld) [#/Vol]0.0 10*3/uL 0.0-0.2FTrumbull Memorial HospitalBasophils/100 WBC Auto (Bld)Ordered By: Roma Pritchard on 95-80-3252Casscdoqh/100 WBC (Bld)0.6 %.[facility] TroyBilirubin.total [Mass/volume] in Serum or PlasmaOrdered By: Roma Pritchard on 14-03-6236Iwyxuwquv [Mass/Vol]0.8 mg/dL0.3-1.0[facility] TroyCalcium [Mass/volume] in Serum or PlasmaOrdered By: Roma Pritchard on 60-42-6064Yxmvlok [Mass/Vol]9.6 mg/dL8.6-10.3FTrumbull Memorial HospitalCarbon dioxide, total [Moles/volume] in Serum or PlasmaOrdered By: Roma Pritchard on 44-20-5632WP0 [Moles/Vol]29.1 mmol/L21.0-31.0[facility] TroyChloride [Moles/volume] in Serum or PlasmaOrdered By: Roma Pritchard on 28-40-2314Phurfsva [Moles/Vol]105 mmol/K38-481DblwtitveKettering Health TroyCholesterol [Mass/volume] in Serum or PlasmaOrdered By: Roma Pritchard on 97-65-8686Yqdjbfodtft [Mass/Vol]162 mg/wD814-098OyybtsscqKettering Health TroyComment on above:Chol less than 200 mg/dl low riskChol 201-239 mg/dl borderline riskChol 240 mg/dl and greater high riskCholesterol in LDL Calc [Mass/Vol]Ordered By: Roma Pritchard on 97-16-6786Baahdbxkgvc in LDL [Mass/Vol]66 mg/dL0-100[facility] TroyComment on above:LDL ATP III CLASSIFICATIONLDL less than 100 mg/dL OptimalLDL 100-129 mg/dL Near or above qyylnujBBX942-700 mg/dL Borderline highLDL 160-189 mg/dL HighLDL greater than 189 mg/dL Very highCholesterol in VLDL Calc [Mass/Vol]Ordered By: Roma Pritchard on 27-15-0304Xpdahqvxokc in VLDL [Mass/Vol]32 mg/dLKettering Health TroyCotinine [Mass/volume] in Serum or PlasmaOrdered By: Ar Herman on 20-12-5076Bwgxhlwa [Mass/Vol]<1.0 ng/mL.[facility] TroyComment on above:This test was developed and its performance characteristicsdetermined by [employer]. It has not been cleared orapproved by the Food and Drug Administration.Cotinine levels greater than 20.0 are consistent with theuse of tobacco or tobacco cessation products.Performed at: [facility] [id number] Director: Keshia Duron MD, Phone: [phone] [Mass/volume] in Serum or PlasmaOrdered By: Roma Pritchard on 27-65-4701Dbsuvcxurn [Mass/Vol]0.72 mg/dL0.60-1.20[facility] TroyEosinophils Auto (Bld) [#/Vol]Ordered By: Roma Pritchard on 09-15-2022 Eosinophils (Bld) [#/Vol]0.1 10*3/uL0.0-0.45[facility] Eosinophils/100 WBC Auto (Bld)Ordered By: Roma Pritchard on 09-15-2022 Eosinophils/100 WBC (Bld)2.1 %.[facility] TroyErythrocyte distribution width Auto (RBC) [Ratio]Ordered By: Roma Pritchard on 09-15-2022 Erythrocyte distribution width (RBC) [Ratio]14.2 %11.9-15.3FTrumbull Memorial HospitalFolate [Mass/volume] in Serum or PlasmaOrdered By: Roma Pritchard on 66-65-7123Rwchho [Mass/Vol]16.7 ng/mL>5.9[facility] Comment on above:Folate reference range: >5.9 ng/mlThe WHO technical consultation on folate and vitamin t73qwwkdklovdiu has determined that folate concentrations lessthan 4 ng/ml are considered deficient.Globulin Calc (S) [Mass/Vol]Ordered By: Roma Pritchard on 76-90-0299Oxbeiysr (S) [Mass/Vol]2.4 g/dL [facility] TroyGlucose [Mass/volume] in Serum or PlasmaOrdered By: Roma Pritchard on 33-94-9583Gtvewkr [Mass/Vol]98 mg/mG18-514NlsvkjomiKettering Health TroyComment on above:ADA recommended reference rangeRandom Glucose Reference Range is dependent on time and content of last meal. Glucose of more than 200 mg/dL in a nonstressed, ambulatory subject supports the diagnosisof Diabetes Mellitus.Glucose mean value [Mass/volume] in Blood Estimated from glycated hemoglobinOrdered By: Roma Pritchard on 50-52-9806Llesqfs glucose Estimated from glycated hemoglobin (Bld) [Mass/Vol]123 mg/dLKettering Health TroyHematocrit Auto (Bld) [Volume fraction]Ordered By: Roma Pritchard on 37-24-2557Qppdcaodqd (Bld) [Volume fraction]35.6 %34.0-46.4FTrumbull Memorial HospitalHemoglobin A1c percentageOrdered By: Roma Pritchard on 50-90-2665JzO0v (Bld) [Mass fraction]5.9 %4.3-5.6FTrumbull Memorial HospitalComment on above:Increased risk for diabetes: 5.7 - 6.4diabetes: >6.4glycemic control for adults with diabetes: <7.0Hemoglobin [Mass/volume] in BloodOrdered By: Roma Pritchard on 40-35-4045Eitigmjoap (Bld) [Mass/Vol]11.7 g/dL11.8-15.4FTrumbull Memorial HospitalLeukocytes [#/volume] corrected for nucleated erythrocytes in Blood by Automated counOrdered By: Roma Pritchard on 96-47-6603HRN corrected for nucl RBC Auto (Bld) [#/Vol]6.2 10*3/uL3.8-11.6 [facility] TroyLymphocytes Auto (Bld) [#/Vol]Ordered By: Roma Pritchard on 66-70-1222Rtcihpiduic (Bld) [#/Vol]1.2 10*3/uL1.00-4.8[facility] TroyLymphocytes/100 WBC Auto (Bld)Ordered By: Roma Pritchard on 59-70-8006Bukfyeaizdz/100 WBC (Bld)19.7 %.[facility] TroyMCH Auto (RBC) [Entitic mass]Ordered By: Roma Pritchard on 11-87-2134MZQ (RBC) [Entitic mass]29.5 pg24.7-34.3FTrumbull Memorial HospitalMCHC Auto (RBC) [Mass/Vol]Ordered By: Roma Pritchard on 79-73-2554QCLM (RBC) [Mass/Vol]32.8 g/dL 32.0-35.0[facility] TroyMCV Auto (RBC) [Entitic vol]Ordered By: Roma Pritchard on 02-91-2145CDH (RBC) [Entitic vol]89.7 zJ96-834KuwhtwjjcKettering Health TroyMonocytes Auto (Bld) [#/Vol]Ordered By: Roma Pritchard on 36-68-3823Kyjykwxeu (Bld) [#/Vol]0.4 10*3/uL0.0-0.8[facility] TroyMonocytes/100 WBC Auto (Bld)Ordered By: Roma Pritchard on 09-15-2022 Monocytes/100 WBC (Bld)7.1 %.[facility] TroyNeutrophils Auto (Bld) [#/Vol]Ordered By: Roma Pritchard on 76-28-8274Qrtbbwbaxou (Bld) [#/Vol]4.3 10*3/uL1.8-7.7FTrumbull Memorial HospitalNeutrophils/100 WBC Auto (Bld) Ordered By: Roma Pritchard on 28-74-6613Edejwamqiaz/100 WBC (Bld)70.5 %.[facility] TroyNicotine [Mass/volume] in Serum or PlasmaOrdered By: Ar Herman on 19-58-7603Xbhzxrdx [Mass/Vol]<1.0 ng/mL.[facility] TroyComment on above:This test was developed and its performance characteristicsdetermined by [employer] It has not been cleared orapproved by the Food and Drug Administration.Nicotine levels greater than 2.0 are consistent with theuse of tobacco or tobacco cessation products.No Panel InformationOrdered By: Roma Pritchard on 17-96-6582Uudbvfjvn GFR (CKD-EPI)> 60.0 mL/MinKettering Health TroyPharmacy Creatinine Clearance (ChemN/AFTrumbull Memorial HospitalNucleated erythrocytes [Presence] in Blood by Automated count Ordered By: Roma Pritchard on 06-33-7525Pnytoxmvi RBC Auto Ql (Bld)0.2 /100{WBC} 0-0.5FTrumbull Memorial HospitalPlatelet mean volume Auto (Bld) [Entitic vol]Ordered By: Roma Pritchard on 99-27-1507Wwpuoetu mean volume (Bld) [Entitic vol]9.9 fL6.3-10.7FTrumbull Memorial HospitalPlatelets Auto (Bld) [#/Vol] Ordered By: Roma Pritchard on 69-13-6247Wagxsdufd (Bld) [#/Vol]252 10*3/bU462-685 [facility] TroyPotassium [Moles/volume] in Serum or Plasma Ordered By: Roma Pritchard on 14-51-8270Acstzpdhn [Moles/Vol]3.9 mmol/L3.5-5.1 [facility] TroyProtein [Mass/volume] in Serum or PlasmaOrdered By: Roma Pritchard on 18-82-5505Tbejqaj [Mass/Vol]6.8 g/dL6.4-8.9[facility] TroyRBC Auto (Bld) [#/Vol]Ordered By: Roma Pritchard on 06-07-0511VSY (Bld) [#/Vol]3.96 10*6/uL3.60-5.00[facility] Centererum or plasma albumin/globulin mass ratioOrdered By: Roma Pritchard on 29-96-8180Ybstzef/Globulin [Mass ratio]1.8 {ratio}[facility] Centererum or plasma anion gap determinationOrdered By: Roma Pritchard on 26-12-5223Yrrfj gap [Moles/Vol]10.8 mmol/L6.0-15.0[facility] Centererum or plasma high density lipoprotein (HDL) cholesterol measurement Ordered By: Roma Pritchard on 21-73-3099Udcyvanvcvj in HDL [Mass/Vol]64 mg/dL23-92 [facility] TroyComment on above:HDL CHOL ATP-III CLASSIFICATION Cardiovascular RiskHDL > or equal to 60 mg/dL LOWHDL < 40 mg/dL HIGHSerum or plasma total cholesterol/high density lipoprotein (HDL) cholesterol mass ratOrdered By: Roma Pritchard on 40-96-2991Adnahvlwjns.total/Cholesterol in HDL [Mass ratio]2.5 {ratio}<5.0[facility] Medical Centerodium [Moles/volume] in Serum or PlasmaOrdered By: Roma Pritchard on 52-82-3160Xasikp [Moles/Vol]141 mmol/V875-250IfvusmsddKettering Health TroyTriglyceride [Mass/volume] in Serum or PlasmaOrdered By: Roma Pritchard on 09-15-2022 Triglyceride [Mass/Vol]162 mg/dL0-149[facility] TroyComment on above:TRIG ATP III CLASSIFICATIONTRIG less than 150 mg/dL NormalTRIG 150-199 mg/dL Borderline highTRIG 200-500 mg/dL High TRIG greater than 500 mg/dL Very highStandard traceable to the Center for Disease Conrtrol and Prevention (CDC) test method.Urea nitrogen [Mass/volume] in Serum or PlasmaOrdered By: Roma Pritchard on 62-36-2638Bupb nitrogen [Mass/Vol]23 mg/dL7-25[facility] TroyVitamin B12 ser/plasOrdered By: Roma Pritchard on 09-15-2022 Cobalamin (Vitamin B12) [Mass/Vol]409 pg/zW002-376FefoxngrtKettering Health TroyVitamin D+Metabolites [Mass/volume] in Serum or PlasmaOrdered By: Roma Pritchard on 92-32-1521Hravevc D+Metabolites [Mass/Vol]28.1 ng/dP36-123KnlysusbpKettering Health TroyComment on above:VITAMIN D STATUS 25(OH)VITAMIN D RANGE (ng/mL) Deficient <20 Insufficient 20 to <35Cfmbgzjkek93 to 100Reference: Bro MF,Salo NC, Iqra PAGE, et al. Evaluation,treatment, and prevention of vitamin D deficiency; an Endocrine Society clinical practice guideline. JCEM. 2010; 96(7):1911-30.WBC Auto (Bld) [#/Vol]Ordered By: Roma Pritchard on 99-76-4416OEV (Bld) [#/Vol]6.2 10*3/uL3.8-11.6FTrumbull Memorial Hospital US THYROIDon 03-09-6299YC THYROIDEXAMINATION: US THYROID HISTORY: Dysphagia COMPARISON: No relevant comparison available. [...] Electronically authenticated by: PAIGE CLAYTON Date: 2022-04-15 08:09[facility] HospitalXR CSPINE MIN 4 VIEWSon 57-36-6459HR CSPINE MIN 4 VIEWS EXAMINATION: XR CSPINE MIN 4 VIEWS HISTORY: Neck pain radiating [...] Electronically authenticated by: PAIGE CLAYTON Date: 2022-04-04 12:31[facility] HospitalAlbumin [Mass/volume] in Serum or PlasmaOrdered By: Roma Pritchard on 98-01-8413Lzcoaqc [Mass/Vol]3.8 g/dL3.2-5.5FTrumbull Memorial HospitalAutomated erythrocytes count in urine sediment (number/area)Ordered By: Roma Pritchard on 75-16-9329XNW Auto (Urine sed) [#/Area]3-4 [HPF]0-4FTrumbull Memorial HospitalAutomated leukocytes count in urine sediment (number/area)Ordered By: Roma Pritchard on 65-82-8508LCS Auto (Urine sed) [#/Area] 20-49 [HPF]0-4FTrumbull Memorial HospitalAutomated urine sediment calcium oxalate crystal count by microscopy (number/high powOrdered By: Roma Pritchard on 41-76-2279Zbdeymc oxalate crystals LM.HPF (Urine sed) [#/Area]1+ [HPF][facility] TroyBasophils Auto (Bld) [#/Vol]Ordered By: Roma Pritchard on 79-43-0511Zfcbusalw (Bld) [#/Vol]0.0 10*3/uL0.0-0.2FTrumbull Memorial HospitalBasophils/100 WBC Auto (Bld)Ordered By: Roma Pritchard on 03-28-2022 Basophils/100 WBC (Bld)0.6 %.[facility] TroyBilirubin Test strip Ql (U)Ordered By: Roma Pritchard on 97-87-9681Rbojummeu Ql (U)Negative NegativeKettering Health TroyCT biopsyOrdered By: Roma Pritchard on 81-34-1741Zobzjetbvef [Mass/Vol]333 mg/cK673-971ZzrqgweoiKettering Health TroyCholesterol [Mass/volume] in Serum or PlasmaOrdered By: Roma Pritchard on 80-20-2974Vmyswxptkth [Mass/Vol]186 mg/vC725-744SmzvrafasKettering Health TroyComment on above:Chol less than 200 mg/dl low riskChol 201-239 mg/dl borderline riskChol 240 mg/dl and greater high riskCholesterol in LDL Calc [Mass/Vol]Ordered By: Roma Pritchard on 01-22-1643Iwexddamntb in LDL [Mass/Vol]84 mg/dL0-100[facility] TroyComment on above:LDL ATP III CLASSIFICATIONLDL less than 100 mg/dL OptimalLDL 100-129 mg/dL Near or above edgmipjHJV319-245 mg/dL Borderline highLDL 160-189 mg/dL HighLDL greater than 189 mg/dL Very highCholesterol in VLDL Calc [Mass/Vol]Ordered By: Roma Pritchard on 34-48-0997Lgzfvqrvqan in VLDL [Mass/Vol]26 mg/dLKettering Health TroyColor Auto (U)Ordered By: Roma Pritchard on 49-82-3787Qygwu (U)YellowYellow [facility] TroyCreatinine and Glomerular filtration rate.predicted panel (S/P/Bld)Ordered By: Roma Pritchard on 45-40-3104Bkrnwmtkdk [Mass/Vol]0.77 mg/dL0.44-1.03[facility] TroyEosinophils Auto (Bld) [#/Vol]Ordered By: Roma Pritchard on 80-74-6012Kkewuiyvjaz (Bld) [#/Vol]0.1 10*3/uL0.0-0.45[facility] TroyEosinophils/100 WBC Auto (Bld) Ordered By: Roma Pritchard on 62-44-7985Rqrznxrqhfz/100 WBC (Bld)2.0 %.[facility] TroyErythrocyte distribution width Auto (RBC) [Ratio]Ordered By: Roma Pritchard on 41-24-6703Rzxjswjtqzc distribution width (RBC) [Ratio]14.0 % 11.9-15.3FTrumbull Memorial HospitalEstimated glomerular filtration rate (GFR) non- AmericanOrdered By: Roma Pritchard on 65-67-4066HFW/1.73 sq M.predicted among non-blacks MDRD (S/P/Bld) [Vol rate/Area]> 60 mL/MinKettering Health TroyFerritin [Mass/volume] in Serum or PlasmaOrdered By: Roma Pritchard on 59-41-3987Erxktrie [Mass/Vol]31.5 ng/hM28-207.8[facility] TroyFolate [Mass/volume] in Serum or PlasmaOrdered By: Roma Pritchard on 54-56-9935Shuxyg [Mass/Vol]13.6 ng/mL>5.9[facility] TroyComment on above:Folate reference range: >5.9 ng/mlThe WHO technical consultation on folate and vitamin j21sesvpjqkaqee has determined that folate concentrations lessthan 4 ng/ml are considered deficient.Globulin Calc (S) [Mass/Vol]Ordered By: Roma Pritchard on 40-91-3140Brhnhjsp (S) [Mass/Vol]2.4 g/dL [facility] TroyHematocrit Auto (Bld) [Volume fraction]Ordered By: Roma Pritchard on 06-83-8516Sdzcepyexj (Bld) [Volume fraction]41.2 %34.0-46.4 [facility] TroyHemoglobin [Mass/volume] in BloodOrdered By: Roma Pritchard on 54-69-1257Lhrbxeevai (Bld) [Mass/Vol]13.3 g/dL11.8-15.4FTrumbull Memorial HospitalIron [Mass/volume] in Serum or PlasmaOrdered By: Roma Pritchard on 67-53-1507Popm [Mass/Vol]82 ug/bP52-558WtcgaoduqKettering Health TroyIron binding capacity [Mass/volume] in Serum or PlasmaOrdered By: Roma Pritchard on 20-14-9479Zmqu binding capacity [Mass/Vol]466 ug/uS544-862GhxhkqqlwKettering Health TroyIron saturation [Mass Fraction] in Serum or PlasmaOrdered By: Roma Pritchard on 08-20-3196Hjrp saturation [Mass fraction]17.6 %20-50 [facility] TroyKetones Auto test strip (U) [Mass/Vol]Ordered By: Roma Pritchard on 30-54-1722Wotqfty (U) [Mass/Vol]NegativeNegativeKettering Health TroyLaboratory - Chemistry and Chemistry - challengeOrdered By: Roma Pritchard on 89-60-9275Jijdrfmmr (Vitamin B12) [Mass/Vol]540 pg/tH189-844 [facility] TroyLaboratory - UrinalysisOrdered By: Roma Pritchard on 79-61-0410Dihanug casts LM Ql (Urine sed)0-8 [LPF]0-8[facility] TroyLeukocytes [#/volume] corrected for nucleated erythrocytes in Blood by Automated counOrdered By: Roma Pritchard on 14-50-8190EYY corrected for nucl RBC Auto (Bld) [#/Vol]7.0 10*3/uL3.8-11.6FTrumbull Memorial Hospital Lymphocytes Auto (Bld) [#/Vol]Ordered By: Roma Pritchard on 36-91-5882Dbyldotpbki (Bld) [#/Vol]1.8 10*3/uL1.00-4.8[facility] TroyLymphocytes/100 WBC Auto (Bld)Ordered By: Roma Pritchard on 75-31-2916Ekxmnrlbwdh/100 WBC (Bld) 25.7 %.[facility]) [Entitic mass]Ordered By: Roma Pritchard on 11-48-7387DYH (RBC) [Entitic mass]29.8 pg24.7-34.3FTrumbull Memorial HospitalMCHC Auto (RBC) [Mass/Vol]Ordered By: Roma Pritchard on 00-64-1655AVEE (RBC) [Mass/Vol]32.3 g/dL32.0-35.0[facility] TroyMCV Auto (RBC) [Entitic vol]Ordered By: Roma Pritchard on 64-29-2628HBX (RBC) [Entitic vol]92.1 mE65-443RmcmubfckKettering Health TroyMonocytes Auto (Bld) [#/Vol]Ordered By: Roma Pritchard on 16-60-6700Stkkacroj (Bld) [#/Vol]0.3 10*3/uL0.0-0.8[facility] TroyMonocytes/100 WBC Auto (Bld) Ordered By: Roma Pritchard on 55-80-0131Qgvmkxlrj/100 WBC (Bld)4.5 %.[facility] TroyNeutrophils Auto (Bld) [#/Vol]Ordered By: Roma Pritchard on 30-91-6282Crllykqqyks (Bld) [#/Vol]4.7 10*3/uL1.8-7.7FTrumbull Memorial HospitalNeutrophils/100 WBC Auto (Bld)Ordered By: Roma Pritchard on 03-28-2022 Neutrophils/100 WBC (Bld)67.2 %.[facility] TroyNitrite Test strip Ql (U)Ordered By: Roma Pritchard on 53-76-5226Iobpizs Ql (U)NegativeNegative [facility] TroyNo Panel InformationOrdered By: Roma Pritchard on [id number]-Hhxnqcc Vitamin D Total41.1 ng/aP95-450SlgzoyvebKettering Health TroyComment on above:VITAMIN D STATUS 25(OH)VITAMIN D RANGE (ng/mL) Deficient <20 Insufficient 20 to <29Cndamuqcru94 to 100Reference: Bro MF,Salo NC, Iqra PAGE, et al. Evaluation,treatment, and prevention of vitamin D deficiency; an Endocrine Society clinical practice guideline. JCEM. 2010; 96 (7):1911-30.Estimated GFR ()> 60 mL/MinKettering Health TroyComment on above:GFR estimated reference range: According to KDOQI guidelines, <60 ml/min/1.73m2 is sufficient todiagnose a patient with chronic kidney disease.Pharmacy Creatinine Clearance (ChemN/AFTrumbull Memorial HospitalNucleated erythrocytes [Presence] in Blood by Automated countOrdered By: Roma Pritchard on 17-10-4311Ypdsccqri RBC Auto Ql (Bld)0.0 /100{WBC}0-0.5FTrumbull Memorial HospitalPlatelet mean volume Auto (Bld) [Entitic vol]Ordered By: Roma Pritchard on 82-55-4001Fmkhjxcx mean volume (Bld) [Entitic vol]9.6 fL6.3-10.7 [facility] TroyPlatelets Auto (Bld) [#/Vol]Ordered By: Roma Pritchard on 40-41-3266Jjwgbwoiu (Bld) [#/Vol]213 10*3/wX675-360VgnoiwjflKettering Health TroyProtein Auto test strip (U) [Mass/Vol]Ordered By: Roma Pritchard on 17-38-6856Ydwzzgs (U) [Mass/Vol]NegativeNegativeKettering Health TroyProtein [Mass/volume] in Serum or PlasmaOrdered By: Roma Pritchard on 88-60-8288Ezqlrgc [Mass/Vol]6.2 g/dL6.1-7.9[facility] TroyRBC Auto (Bld) [#/Vol]Ordered By: Roma Pritchard on 28-23-1287PSF (Bld) [#/Vol]4.48 10*6/uL3.60-5.00[facility] Centererum or plasma alanine aminotransferase measurement without P-5'-P (enzymatic activiOrdered By: Roma Pritchard on 00-18-9396IUH No additional P-5'-P [Catalytic activity/Vol]23 U/L10-60 [facility] Centererum or plasma albumin/globulin mass ratio Ordered By: Roma Pritchard on 93-85-7199Jyrrhvq/Globulin [Mass ratio]1.6 {ratio} [facility] Centererum or plasma alkaline phosphatase measurement (enzymatic activity/volume)Ordered By: Roma Pritchard on 51-19-6674YRS [Catalytic activity/Vol]60 U/Q54-71VtiqujqsfLakeHealth TriPoint Medical Centererum or plasma anion gap determinationOrdered By: Roma Pritchard on 08-68-0489Jfpcu gap [Moles/Vol]9.1 mmol/L6.0-15.0[facility] Centererum or plasma aspartate aminotransferase measurement (enzymatic activity/volume)Ordered By: Roma Pritchard on 82-22-0247PIV [Catalytic activity/Vol]17 U/Q88-50BevehriecLakeHealth TriPoint Medical Centererum or plasma calcium measurement (mass/volume)Ordered By: Roma Pritchard on 70-98-2086Ineuozy [Mass/Vol]9.4 mg/dL8.2-10.2FUniversity Hospitals Lake West Medical Centererum or plasma chloride measurement (moles/volume) Ordered By: Roma Pritchard on 93-43-0796Xupraimm [Moles/Vol]104 mmol/L95-114 [facility] Centererum or plasma glucose measurement (mass/volume)Ordered By: Roma Pritchard on 61-75-1311Ajovvby [Mass/Vol]89 mg/dL 70-100[facility] TroyComment on above:ADA recommended reference rangeRandom Glucose Reference Range is dependent on time and content of last meal. Glucose of more than 200 mg/dL in a nonstressed, ambulatory subject supports the diagnosisof Diabetes Mellitus.Serum or plasma high density lipoprotein (HDL) cholesterol measurementOrdered By: Roma Pritchard on 03-28-2022 Cholesterol in HDL [Mass/Vol]76 mg/lJ33-89HtrbuqoteKettering Health Troy Comment on above:HDL CHOL ATP-III CLASSIFICATION Cardiovascular RiskHDL > or equal to 60 mg/dL LOWHDL < 40 mg/dL HIGHSerum or plasma potassium measurement (moles/volume)Ordered By: Roma Pritchard on 00-04-8129Nunkwxwzm [Moles/Vol]4.0 mmol/L3.5-5.1FUniversity Hospitals Lake West Medical Centererum or plasma sodium measurement (moles/volume)Ordered By: Roma Pritchard on 76-55-9889Fiixzm [Moles/Vol]137 mmol/F488-422VyjdubzctLakeHealth TriPoint Medical Centererum or plasma total bilirubin measurement (mass/volume)Ordered By: Roma Pritchard on 19-54-1849Vevcakunw [Mass/Vol]0.3 mg/dL0.3-1.2FUniversity Hospitals Lake West Medical Centererum or plasma total carbon dioxide measurement (moles/volume)Ordered By: Roma Pritchard on 03-28-2022 CO2 [Moles/Vol]27.9 mmol/L22.0-30.0[facility] Centererum or plasma total cholesterol/high density lipoprotein (HDL) cholesterol mass rat Ordered By: Roma Pritchard on 50-31-9480Yzyylqybigf.total/Cholesterol in HDL [Mass ratio]2.4 {ratio}<5.0[facility] Centererum or plasma urea nitrogen measurement (mass/volume)Ordered By: Roma Pritchard on 07-56-8720Covu nitrogen [Mass/Vol]20 mg/dL9-23[facility] Medical Centerpecific gravity Auto test strip (U) [Rel density]Ordered By: Roma Pritchard on 71-77-3617Vfmtrhiz gravity (U) [Rel density]1.0191.001-1.030[facility] Squamous epithelial cells detection in urine sediment by light microscopyOrdered By: Roma Pritchard on 59-31-2561Awwwalgjuy cells.squamous LM Ql (Urine sed)3-4 [HPF]0-2FTrumbull Memorial HospitalTS DL <= 0.005 mIU/L QnOrdered By: Roma Pritchard on 80-76-3086JWN Qn1.25 m[IU]/L0.45-5.33[facility] TroyTriglyceride [Mass/volume] in Serum or PlasmaOrdered By: Roma Pritchard on 32-30-9814Krpawufqdovv [Mass/Vol]132 mg/jE80-719RtgblaomlKettering Health TroyComment on above:TRIG ATP III CLASSIFICATIONTRIG less than 150 mg/dL NormalTRIG 150-199 mg/dL Borderline highTRIG 200-500 mg/dL High TRIG greater than 500 mg/dL Very highStandard traceable to the Center for Disease Conrtrol and Prevention (CDC) test method.Urine bacteria detection by automated method Ordered By: Roma Pritchard on 83-89-1446Glexloxc Auto Ql (U)None seenNone Seen [facility] TroyUrine clarity by refractometry automatedOrdered By: Roma Pritchard on 65-66-9206Kwhloxx Refractometry automated (U)TurbidClear [facility] TroyUrine glucose measurement by automated test strip (mass/volume)Ordered By: Roma Pritchard on 67-09-5434Zehydnc Auto test strip (U) [Mass/Vol]Normal mg/dLNormalKettering Health TroyUrine hemoglobin detection by automated test stripOrdered By: Roma Pritchard on 57-48-8645Gfybabkmwg Auto test strip Ql (U)NegativeNegativeKettering Health TroyUrine leukocyte esterase detection by automated test stripOrdered By: Roma Pritchard on 83-71-7576Neqrdcwgz esterase Auto test strip Ql (U)3+ NegativeKettering Health TroyUrine sediment crystal identification by light microscopyOrdered By: Roma Pritchard on 54-81-4025Wvvhphuz LM Nom (Urine sed)None seen [HPF][facility] TroyUrobilinogen Auto test strip (U) [Mass/Vol]Ordered By: Roma Pritchard on 65-29-8955Gbumziizpmjp (U) [Mass/Vol] Normal mg/dLNoBlanchard Valley Health System Blanchard Valley HospitalWBC Auto (Bld) [#/Vol]Ordered By: Roma Pritchard on 57-02-5803YBB (Bld) [#/Vol]7.0 10*3/uL3.8-11.6FTrumbull Memorial HospitalpH Auto test strip (U)Ordered By: Roma Pritchard on 10-87-4146mE (U)5.5 [pH]5.0-9.0[facility] TroyXR hip RT min 2V(w/wo pelvis)*on 05-29-4302DZ hip RT min 2V(w/wo pelvis)*[facility] [employer] Other XR hip RT min 2V(w/wo pelvis)*[facility] [place] [facility] [employer] Other XR hip RT min 2V(w/wo pelvis)*[address] [facility] [employer] Other XR hip RT min 2V(w/wo pelvis)*LETI Strickland [address]Sactt [employer] Other XR hip RT min 2V(w/wo pelvis)*[facility] [employer] Other XR hip RT min 2V(w/wo pelvis)*[facility] [employer] Other XR hip RT min 2V(w/wo pelvis)*Patient: Teagan Gonsales MR#: [id number] [employer] Other XR hip RT min 2V(w/wo pelvis)*[id number] [employer] Other XR hip RT min 2V(w/wo pelvis)*: 1955 Acct:[id number] Other XR hip RT min 2V(w/wo pelvis)*Age/Sex: 66 / F ADM Date: [facility]22[facility] Other X[facility] hip RT min 2V(w/wo pelvis)*[place] [facility] [place] Type[place] [facility] [employer] Other XR hip RT min 2V(w/wo pelvis)*Attending Dr: Ar Herman II INBlue[facility] [employer] Other XR hip RT min 2V(w/wo pelvis)*Copies to: Ar Herman MDEpiphany Other XR hip RT min 2V(w/wo pelvis)*Ordering Provider: Ar Herman MDEpiphany Other XR hip RT min 2V(w/wo pelvis)*Date of Service: 03/05/22[facility] HospitalB[facility]ball Other XR hip RT min 2V(w/wo pelvis)* XR/XR hip RT min 2V(w/wo pelvis)*: [place] [employer] Other XR hip RT min 2V(w/wo pelvis)*RIGHT HIP - 2 views: [employer] Other XR hip RT min 2V(w/wo pelvis)*CLINICAL HISTORY: Lateral right hip pain for years with weakness.[employer] Other XR hip RT min 2V(w/wo pelvis)*COMPARISON: Hip series 01/[place]/2019[place] [employer] Other XR hip RT min 2V(w/wo pelvis)*FINDINGS: Moderate degenerative changes of both hips without acute bony process. [facility] [employer] Other XR hip RT min 2V(w/wo pelvis)*degenerative changes involving the visualized lower lumbar spine and SI joints.[employer] Other XR hip RT min 2V(w/wo pelvis)* XR/XR hip RT min 2V(w/wo pelvis)*[employer] Other XR hip RT min 2V(w/wo pelvis)*IMPRESSION:[employer] Other XR hip RT min 2V(w/wo pelvis)*MODERATE DEGENERATIVE CHANGES OF BOTH HIPS WITHOUT ACUTE BONY PROCESS..[employer] Other XR hip RT min 2V(w/wo pelvis)*Impression dictated by: Martin Ruano Jr., DNkechiONkechi03/05/2022 3:03 [facility] [employer] Other XR hip RT min 2V(w/wo pelvis)*Dictation Location: [address] [employer] Other XR hip RT min 2V(w/wo pelvis)*Transcribed By: PWS 03/05/22 [facility] Other [facility] hip RT min 2V(w/wo pelvis)*Dictated By: Martin Ruano Jr, DO 03/05/22 [facility]Ep[facility] Other X[facility] hip RT min 2V(w/wo pelvis)*Signed By:[employer] Other XR hip RT min 2V(w/wo pelvis)*03/05/22 [facility]Ep[facility] Other XR KUB 1 VIEWon 00-39-9058LW KUB 1 VIEWEXAMINATION: XR KUB 1 VIEW HISTORY: Kidney stone [...] Electronically authenticated by: ROMA BOUDREAUX Date: 2021-12-30 17:26[facility] HospitalUrine culture routineOrdered By: Roma Pritchard on 09-25-2021 Bacteria identified Cx Nom (U)2 DaysKettering Health TroyAutomated erythrocytes count in urine sediment (number/area)Ordered By: Roma Pritchard on 67-32-2216QAH Auto (Urine sed) [#/Area]3-4 [HPF]0-4FTrumbull Memorial HospitalAutomated leukocytes count in urine sediment (number/area)Ordered By: Roma Pritchard on 28-84-9378ZYS Auto (Urine sed) [#/Area]10-19 [HPF]0-4FTrumbull Memorial HospitalAutomated urine sediment calcium oxalate crystal count by microscopy (number/high powOrdered By: Roma Pritchard on 59-22-2564Jqfmjax oxalate crystals LM.HPF (Urine sed) [#/Area]2+ [HPF][facility] TroyBasophils Auto (Bld) [#/Vol]Ordered By: Roma Pritchard on 09-23-2021 Basophils (Bld) [#/Vol]0.0 10*3/uL0.0-0.2FTrumbull Memorial Hospital Basophils/100 WBC Auto (Bld)Ordered By: Roma Pritchard on 32-49-4726Eoqunttzs/100 WBC (Bld)0.6 %.[facility] TroyBilirubin Auto test strip Ql (U) Ordered By: Roma Pritchard on 01-53-4452Loujvmirt Ql (U)NegativeNegativeKettering Health TroyBlood hemoglobin measurement (mass/volume)Ordered By: Roma Pritchard on 55-75-6941Uoidevgnoc (Bld) [Mass/Vol]13.5 g/dL11.8-15.4FTrumbull Memorial HospitalBlood leukocytes automated count (number/volume)Ordered By: Roma Pritchard on 52-65-4707ERV (Bld) [#/Vol]5.9 10*3/uL4.5-11.0[facility] TroyBody fluid albumin measurement (mass/volume)Ordered By: Roma Pritchard on 75-66-5965Lvbzwtt (Body fld) [Mass/Vol]3.9 g/dL3.2-5.5FTrumbull Memorial HospitalCT biopsyOrdered By: Roma Pritchard on 09-23-2021 Transferrin [Mass/Vol]290 mg/sJ063-346QohixxivkKettering Health Troy Cholesterol [Mass/volume] in Serum or PlasmaOrdered By: Roma Pritchard on 73-40-1800Soukbjxohga [Mass/Vol]158 mg/cJ281-003SesecxoxwKettering Health TroyComment on above:Chol less than 200 mg/dl low risk Chol 201-239 mg/dl borderline risk Chol 240 mg/dl and greater high riskCholesterol in LDL Calc [Mass/Vol]Ordered By: Roma Pritchard on 05-87-1672Adzmgkzosyt in LDL [Mass/Vol]64 mg/dL0-100 [facility] TroyComment on above:LDL ATP III CLASSIFICATION LDL less than 100 mg/dL Optimal LDL 100-129 mg/dL Near or above optimal LDL 130-159 mg/dL Borderline high LDL 160-189 mg/dL High LDL greater than 189 mg/dL Very highCholesterol in VLDL Calc [Mass/Vol]Ordered By: Roma Pritchard on 00-92-1002Ygftqxxkrrs in VLDL [Mass/Vol]39 mg/dLKettering Health TroyCreatinine and Glomerular filtration rate.predicted panel (S/P/Bld)Ordered By: Roma Pritchard on 41-62-3687Drjavhnmcc [Mass/Vol]0.64 mg/dL 0.44-1.03[facility] TroyEosinophils Auto (Bld) [#/Vol]Ordered By: Roma Pritchard on 47-75-1817Dhnzpyonjaq (Bld) [#/Vol]0.2 10*3/uL0.0-0.45 [facility] TroyEosinophils/100 WBC Auto (Bld)Ordered By: Roma Pritchard on 72-56-3116Alglhoimdup/100 WBC (Bld)2.6 %.[facility] TroyErythrocyte distribution width Auto (RBC) [Ratio]Ordered By: Roma Pritchard on 66-21-0800Wlnfaazxlno distribution width (RBC) [Ratio]12.7 %11.9-15.3 [facility] TroyEstimated glomerular filtration rate (GFR) non- AmericanOrdered By: Roma Pritchard on 04-91-2216ZKK/1.73 sq M.predicted among non-blacks MDRD (S/P/Bld) [Vol rate/Area]> 60 mL/MinKettering Health TroyFerritin [Mass/volume] in Serum or PlasmaOrdered By: Roma Pritchard on 74-05-4186Yyctatop [Mass/Vol]101.7 ng/zY13-334.8[facility] TroyFolate [Mass/volume] in Serum or PlasmaOrdered By: Roma Pritchard on 76-80-9269Eyjtsm [Mass/Vol]17.1 ng/mL>5.9[facility] Comment on above:Folate reference range: >5.9 ng/ml The WHO technical consultation on folate and vitamin b12 deficiencies has determined that folate concentrations less than 4 ng/ml are considered deficient.Globulin Calc (S) [Mass/Vol]Ordered By: Roma Pritchard on 76-20-9698Vyklrkfc (S) [Mass/Vol]2.3 g/dLKettering Health TroyGlucose mean value [Mass/volume] in Blood Estimated from glycated hemoglobinOrdered By: Rmoa Pritchard on 38-41-7108Rntujjc glucose Estimated from glycated hemoglobin (Bld) [Mass/Vol]120 mg/dLKettering Health Troy Hematocrit Auto (Bld) [Volume fraction]Ordered By: Roma Pritchard on 09-23-2021 Hematocrit (Bld) [Volume fraction]40.6 %34.0-46.4FTrumbull Memorial HospitalHemoglobin A1c percentageOrdered By: Roma Pritchard on 89-04-8830UeN4n (Bld) [Mass fraction]5.8 %4.3-5.6FTrumbull Memorial HospitalComment on above: Increased risk for diabetes: 5.7 - 6.4 diabetes: >6.4 glycemic control for adults with diabetes: <7.0Iron [Mass/volume] in Serum or PlasmaOrdered By: Roma Pritchard on 21-37-9775Dhyz [Mass/Vol]98 ug/xA13-854 [facility] TroyIron binding capacity [Mass/volume] in Serum or PlasmaOrdered By: Roma Pritchard on 03-45-5272Sdcx binding capacity [Mass/Vol]406 ug/iN040-590AdblvfumyKettering Health TroyIron saturation [Mass Fraction] in Serum or PlasmaOrdered By: Roma Pritchard on 67-91-5569Eyfr saturation [Mass fraction]24.0 %20-50[facility] TroyKetcommunity hospital of bremen Auto test strip (U) [Mass/Vol]Ordered By: Roma Pritchard on 08-95-3788Tssmggk (U) [Mass/Vol]Negative NegativeKettering Health TroyLaboratory - Chemistry and Chemistry - challengeOrdered By: Roma Pritchard on 78-16-1489Summcscnl (Vitamin B12) [Mass/Vol]648 pg/tX965-702QypexkxnqKettering Health TroyLaboratory - Hematology and Cell countsOrdered By: Roma Pritchard on 20-21-1910Fwzieanus RBC/100 WBC (Bld) [Ratio]0.1 %0-0.5FTrumbull Memorial HospitalLaboratory - UrinalysisOrdered By: Roma Pritchard on 62-32-0292Pkvksbl casts LM Ql (Urine sed) 0-8 [LPF]0-8[facility] TroyLymphocytes Auto (Bld) [#/Vol] Ordered By: Roma Pritchard on 30-75-0231Oacvrefseds (Bld) [#/Vol]1.6 10*3/uL 1.00-4.8[facility] TroyLymphocytes/100 WBC Auto (Bld)Ordered By: Roma Pritchard on 26-24-2729Sxiobszoyfn/100 WBC (Bld)27.3 %.[facility] Auto (RBC) [Entitic mass]Ordered By: Roma Pritchard on 89-56-6727AQR (RBC) [Entitic mass]31.0 pg24.7-34.3FBrecksville VA / Crille [facility] Auto (RBC) [Mass/Vol]Ordered By: Roma Pritchard on 39-95-0886MDZH (RBC) [Mass/Vol]33.3 g/dL32.0-35.0[facility] TroyMCV Auto (RBC) [Entitic vol]Ordered By: Roma Pritchard on 98-95-8566VFY (RBC) [Entitic vol]93.1 mL30-827OsqlemnvdKettering Health TroyMonocytes Auto (Bld) [#/Vol]Ordered By: Roma Pritchard on 76-62-4469Izggtxtlf (Bld) [#/Vol]0.5 10*3/uL0.0-0.8[facility] TroyMonocytes/100 WBC Auto (Bld)Ordered By: Roma Pritchard on 37-26-3258Gtknjvkwa/100 WBC (Bld)8.6 %.[facility] Neutrophils Auto (Bld) [#/Vol]Ordered By: Roma Pritchard on 48-63-5586Zpaifvzqtcx (Bld) [#/Vol]3.6 10*3/uL1.8-7.7FTrumbull Memorial HospitalNeutrophils/100 WBC Auto (Bld)Ordered By: Roma Pritchard on 73-32-5142Vgxpajfhgxv/100 WBC (Bld) 60.9 %.[facility] TroyNo Panel InformationOrdered By: Roma Pritchard on 943017-Yhecvuh Vitamin D Total41.0 ng/rO32-927AdeegjmcfKettering Health TroyComment on above:VITAMIN D STATUS 25(OH)VITAMIN D RANGE (ng/mL) Deficient <20 Insufficient 20 to <30 Sufficient 30 to 100 Reference: Bro MF,Salo NC, Iqra PAGE, et al. Evaluation,treatment, and prevention of vitamin D deficiency; an Endocrine Society clinical practice guideline. JCEM. 2010; 96(7):1911-30.Estimated GFR ()> 60 mL/MinKettering Health TroyComment on above: GFR estimated reference range: According to KDOQI guidelines, <60 ml/min/1.73m2 is sufficient todiagnose a patient with chronic kidney disease.Pharmacy Creatinine Clearance (ChemN/[facility] CampusPlatelet mean volume Auto (Bld) [Entitic vol]Ordered By: Roma Pritchard on 47-05-1726Ncjarvvu mean volume (Bld) [Entitic vol]10.0 fL6.3-10.7FTrumbull Memorial Hospital Platelets Auto (Bld) [#/Vol]Ordered By: Roma Pritchard on 94-10-4802Agiwglhnq (Bld) [#/Vol]213 10*3/aS383-510AbettdkqiKettering Health TroyProtein Auto test strip (U) [Mass/Vol]Ordered By: Roma Pritchard on 30-62-7307Fammapj (U) [Mass/Vol]NegativeNegativeKettering Health TroyProtein [Mass/volume] in Serum or PlasmaOrdered By: Roma Pritchard on 41-61-1018Dfihnjz [Mass/Vol]6.2 g/dL6.1-7.9[facility] TroyRBC Auto (Bld) [#/Vol]Ordered By: Roma Pritchard on 67-63-0417JXV (Bld) [#/Vol]4.36 10*6/uL3.60-5.00[facility] Centererum or plasma alanine aminotransferase measurement without P-5'-P (enzymatic activiOrdered By: Roma Pritchard on 58-68-2587YWG No additional P-5'-P [Catalytic activity/Vol]49 U/U48-14CrbzxbblfLakeHealth TriPoint Medical Centererum or plasma albumin/globulin mass ratioOrdered By: Roma Pritchard on 70-98-1187Opaztah/Globulin [Mass ratio]1.7 {ratio}[facility] Centererum or plasma alkaline phosphatase measurement (enzymatic activity/volume)Ordered By: Roma Pritchard on 35-13-1816QZS [Catalytic activity/Vol]69 U/K66-64FwsmbwkkgLakeHealth TriPoint Medical Centererum or plasma aspartate aminotransferase measurement (enzymatic activity/volume)Ordered By: Roma Pritchard on 75-22-7834WCY [Catalytic activity/Vol]29 U/H51-58FqdawstroLakeHealth TriPoint Medical Centererum or plasma calcium measurement (mass/volume)Ordered By: Roma Pritchard on 11-50-5199Qlhynrf [Mass/Vol]9.9 mg/dL8.2-10.2FUniversity Hospitals Lake West Medical Centererum or plasma chloride measurement (moles/volume) Ordered By: Roma Pritchard on 18-39-4073Qqofjcet [Moles/Vol]102 mmol/L95-114 [facility] Centererum or plasma glucose measurement (mass/volume)Ordered By: Roma Pritchard on 73-87-9820Ovbkwte [Mass/Vol]117 mg/dL 70-100[facility] TroyComment on above:ADA recommended reference range Random Glucose Reference Range is dependent on time and content of last meal. Glucose of more than 200 mg/dL in a nonstressed, ambulatory subject supports the diagnosis of Diabetes Mellitus.Serum or plasma high density lipoprotein (HDL) cholesterol measurementOrdered By: Roma Pritchard on 78-65-3949Avplexylbpj in HDL [Mass/Vol]55 mg/mR63-25TqlxnrrkpKettering Health TroyComment on above:HDL CHOL ATP-III CLASSIFICATION Cardiovascular Risk HDL > or equal to 60 mg/dL LOW HDL < 40 mg/dL HIGHSerum or plasma potassium measurement (moles/volume)Ordered By: Roma Pritchard on 56-21-9023Opqnzqxvr [Moles/Vol]4.0 mmol/L3.5-5.1FUniversity Hospitals Lake West Medical Centererum or plasma sodium measurement (moles/volume)Ordered By: Roma Pritchard on 54-71-5959Ceiluh [Moles/Vol]140 mmol/D835-338ErywgileiLakeHealth TriPoint Medical Centererum or plasma total bilirubin measurement (mass/volume) Ordered By: Roma Pritchard on 61-82-2742Oevzgqzxo [Mass/Vol]0.5 mg/dL0.3-1.2 [facility] Centererum or plasma total carbon dioxide measurement (moles/volume)Ordered By: Roma Pritchard on 58-63-6840BC9 [Moles/Vol] 25.2 mmol/L22.0-30.0[facility] Centererum or plasma total cholesterol/high density lipoprotein (HDL) cholesterol mass ratOrdered By: Roma Pritchard on 90-69-7907Wavbybgwbmd.total/Cholesterol in HDL [Mass ratio]2.9 {ratio}<5.0[facility] Centererum or plasma urea nitrogen measurement (mass/volume)Ordered By: Roma Pritchard on 07-25-0951Arxx nitrogen [Mass/Vol]14 mg/dL9-23[facility] Medical Centerquamous epithelial cells detection in urine sediment by light microscopyOrdered By: Roma Pritchard on 55-68-1270Doxtmjtubz cells.squamous LM Ql (Urine sed)3-4 [HPF]0-2FTrumbull Memorial HospitalTriglyceride [Mass/volume] in Serum or PlasmaOrdered By: Roma Pritchard on 81-05-2142Drmzzipggvst [Mass/Vol]196 mg/tU68-342UivfwudgaKettering Health TroyComment on above:TRIG ATP III CLASSIFICATION TRIG less than 150 mg/dL Normal TRIG 150-199 mg/dL Borderline high TRIG 200-500 mg/dL High TRIG greater than 500 mg/dL Very high Standard traceable to the Center for Disease Conrtrol and Prevention (CDC) test method.Urine appearanceOrdered By: Roma Pritchard on 91-97-5073Betakzfoks (U) CloudyCleOhio State Harding HospitalUrine bacteria detection by automated methodOrdered By: Roma Pritchard on 52-07-5930Yzrvbzeu Auto Ql (U)1+None SeenKettering Health TroyUrine colorOrdered By: Roma Pritchard on 49-89-8268Egmdy (U)YellowYellowKettering Health TroyUrine glucose measurement by automated test strip (mass/volume)Ordered By: Roma Pritchard on 84-99-3222Kzwqomq Auto test strip (U) [Mass/Vol]Normal mg/dLNoBlanchard Valley Health System Blanchard Valley HospitalUrine hemoglobin detection by automated test stripOrdered By: Roma Pritchard on 14-83-1523Fhhhmeybdm Auto test strip Ql (U)1+Negative [facility] TroyUrine leukocyte esterase detection by automated test stripOrdered By: Roma Pritchard on 35-27-1179Lzlztifjz esterase Auto test strip Ql (U)2+NegativeKettering Health TroyUrine nitrite detection by automated test stripOrdered By: Roma Pritchard on 62-42-8523Tsrqahd Auto test strip Ql (U)NegativeNegativeKettering Health TroyUrine sediment crystal identification by light microscopyOrdered By: Roma Pritchard on 09-23-2021 Crystals LM Nom (Urine sed)None seen [HPF][facility] Urobilinogen Auto test strip (U) [Mass/Vol]Ordered By: Roma Pritchard on 32-57-1745Gnulzcsdghiu (U) [Mass/Vol]Normal mg/dLOhioHealth Van Wert HospitalpH Auto test strip (U)Ordered By: Roma Pritchard on 71-09-4034qV (U) 1.030 [pH]1.001-1.030[facility] TroypH (U)5.5 [pH]5.0-9.0 [facility] TroyXR abdomen min 2Von 53-82-0035MD abdomen min 2V [facility] [employer] Other XR abdomen min 2VFRHenry Mayo Newhall [facility] [employer] Other XR abdomen min 2R2290 [facility] [employer] Other XR abdomen min 2[place]Slud[place]ila [place] [address]Rwfdb [employer] Other XR abdomen min 2VXRNaval Hospital Pens[facility] [employer] Other XR abdomen min 2VSSaint [facility] [employer] Other XR abdomen min 2VPatient: Teagan Gonsales MR#: [id number] [place] [employer] Other XR abdomen min [id number] [employer] Other XR abdomen min 2VDOB: 1955 Acct:[id number] [employer] Other XR abdomen min 2VAge/Sex: 65 / F ADM Date: 01/07/21 [place] [employer] Other XR abdomen min 2VLoc: XD Room: Type: [facility] [employer] Other XR abdomen min 2VAttending Dr: Roma Pritchard [facility] [employer] Other XR abdomen min 2VOrdering Provider: Roma Pritchard DO [place] [employer] Other XR abdomen min 2VDate of Service: 01/07/21[place] [employer] Other XR abdomen min 2VAccession #: ([id number]) XR/XR abdomen min 2V: K59.00[place] [employer] Other XR abdomen min 2VCopies to: Roma Pritchard,[facility] [employer] Other XR abdomen min 2V2 views of abdomenCanton [employer] Other XR abdomen min 2VCOMPARISON: 12/27/20[place] [employer] Other XR abdomen min 2VHISTORY: Increased stool.[facility] Other XR abdomen min 2VNondistended air-filled small bowel loops identified.[facility] Other XR abdomen min 2VReduction of stool identified.[facility] Other XR abdomen min 2VNo abdominal calcification identified.[facility] Other XR abdomen min 2VNo soft tissue mass seen.[facility] Other XR abdomen min 2VAdvanced lower lumbar spondylosis present. To moderate bilateral hip degeneration.[facility] Other XR abdomen min 2VORDER #: [id number] XR/XR abdomen min 2[place] [employer] Other XR abdomen min 2VIMPRESSION: No visible nephrolithiasis. Reduction of stool.[facility] Other XR abdomen min 2VImpression dictated by: Jeevan Johnson M.D.01/07/2021 3:34 [facility] [employer] Other XR abdomen min 2VDictation Location: [id number] [employer] Other XR abdomen min 2VTranscribed By: PWS 01/07/21 1534 [place] [employer] Other XR abdomen min 2VDictated By: Jeevan Johnson DO 01/07/21 1532[place] [employer] Other XR abdomen min 2VSigned By:[facility] Other XR abdomen min 2V103/09/20 1534[facility] [employer] Other Urinalysison 61-04-7594Jgnblddbut (U)ClearClearNosaint john's breech regional [facility] [employer] Other Color (U)YellowYellowNosaint john's breech regional medical center [employer] Other Glucose Ql (U)NormalNormalCanton [employer] Other Ketones Ql (U)NegativeNegativeCanton [employer] Other Leukocyte esterase Test strip Ql (U)NegativeNegative [place] [employer] Other pH (U)5.5 [pH]5.0-9.0[place] [employer] Other 8202Vxhfamvach8.0071.001-1.030[place] [employer] Other UrinalysisNormalrmH[facility] [employer] Other Urine 10 SGon 70-84-3512Kfubyoe DL <= 20 mg/L (U) [Mass/Vol]NegativeCanton [employer] Other pH (U)5.0 [pH][place] [employer] Other Urine 10 SGNegativeNegativeBlueprint Medicines [employer] Other Urine 10 SG1.010Nosaint [facility] [employer] Other Urine 10 SG0.2North [employer] Other Dermatopathologyon 37-01-8531Clwmgmzfijenkiku [facility] Dermatopathology Laboratory [address] [place] [id number] DERMATOPATHOLOGY REPORT Name:TEAGAN GONSALESNkechi Starks. Rec #. [id number] Location: [facility] Date of Procedure: 05/01/2020 Race: PT DECLINED Date Received: 05/03/2020 /Sex: 1955 (Age: 64) / F Date Reported: 05/04/2020 Other: Submitting Physician:LULA ZAMORANO APRN, WHEELMAN-C FINAL DIAGNOSIS SKIN, R YARSANI, BIOPSY: INTERFACE DERMATITIS WITH BASAL LAYER KERATINOCYTE [...] M.D. Electronically Signed Out By INO FIGUEROA MD/[facility] By the signature on this report, the individual or group listed as making the Final Interpretation/Diagnosis certifies that they have reviewed this case. Clinical History: 2.1 x 1.9 cm. ISK vs Lupus vs other. Biopsy. Specimens Submitted As: A: SKIN, R YARSANI Gross Description: Received in formalin is a salas piece of skin measuring 5c4p4ig. The specimen is inked and embedded in toto. ctp/05/03/2020NoSpanish Peaks Regional Health CenterComment on above:Performed By: #### D #### DermatopathologyCNCOon 56-23-3953ZEJLZcurxw TextNormalCCorey Hospital Vital Signs Date TimeVital SignValuePerforming DgkvfnbddGtrdzbxd33-11-7198 15:41-0400Body mqenfh065.9 cmNicjosie Brown DPM Work Phone: [facility] MedicineAtiulmjmzf32-38-5523 15:41-0400Body mass index (BMI) [Ratio]28.15 kg/c6Vapvopdw Brown DPM Work Phone: [facility] MedicineFzsuqrwzgp23-45-0312 15:41-0400Body rsvcgu62.59 kgNicholas Brown DPM Work Phone: [facility] MedicineOaikmpzmrg29-54-8325 15:41-0400Respiratory rate16 /minJuan Yates DPM Work Phone: [facility] MedicineLdeainxpqr79-65-7926 10:28-0400Body otriqb156.48 cmDacarri Pritchard DO Work Phone: [phone]08-25-2025 10:28-0400 Body mass index (BMI) [Ratio]28 kg/v0Rjdhkcarl Pritchard DO Work Phone: [phone]11[facility]08-25-2025 10:28-0400 Body zcorscfomvq71.1 [degF]Roma Pritchard DO Work Phone: [phone])[address]08-25-2025 10:28-0400 Body .39 kgDavicarl Pritchard DO Work Phone: 1(090)[address]08-25-2025 10:28-0400 Diastolic blood rnemlrpl42 mm[Hg]Roma Pritchard DO Work Phone: 1(227)[address]08-25-2025 10:28-0400 Heart rate67 /minDavicarl Pritchard DO Work Phone: 1(107)[address] [place], [place] 2408508-25-2025 10:28-0400 SaO2% (BldA) [Mass fraction]97 %Roma Pritchard DO Work Phone: [phone]08-25-2025 10:28-0400 Systolic blood nizmcuvx082 mm[Hg]Roma Pritchard DO Work Phone: [phone]72[facility]06-12-2025 08:35-0400 Body uriiea336.9 cmJuan Yates DPM Work Phone: [facility] MedicineLndssolptn31-80-9526 08:35-0400Body mass index (BMI) [Ratio]28.15 kg/i4SczyntwsJuan Yates DPM Work Phone: [facility] MedicineLbqoyjutpz39-12-7644 08:35-0400Body kfygpc28.59 kgJuan Yates DPM Work Phone: [facility] MedicineForwghvvjg99-61-1891 08:35-0400Respiratory rate16 /Neymar Yates DPM Work Phone: [facility] MedicineWqcawhwgjk20-18-5183 13:45-0400Body rfavee874.48 cmK[facility]05-14-2025 13:45-0400Body mass index (BMI) [Ratio]27.4 kg/q3QwxudierzKettering Health [facility]05-14-2025 13:45-0400Body karbmmywqhk67.9 [degF][facility]05-14-2025 13:45-0400Body .03 kgK[facility]tering Health [facility]05-14-2025 13:45-0400Diastolic blood rzstfinm49 mm[Hg][facility]05-14-2025 13:45-0400 Heart rate61 /[facility]05-14-2025 13:45-7669VuV0% (BldA) [Mass fraction]99 %[facility]05-14-2025 13:45-0400 Systolic blood pbagbcvv677 mm[Hg][facility]03-27-2025 10:54-0400Body .9 cmJuan Yates DPM Work Phone: [facility] MedicinePnciehvxmw90-77-4165 10:54-0400Body mass index (BMI) [Ratio]28.15 kg/q1OufacvopJuan Yates DPM Work Phone: [facility] MedicineZwkusvdpin92-33-3028 10:54-0400Body .59 kgJuan Yates DPM Work Phone: [facility] MedicineMdoabrsfhx56-51-4237 10:54-0400Respiratory rate16 /Neymar Yates DPM Work Phone: [facility] MedicineDocuifqkdm89-02-0128 09:12-0500Body fdrmaf557.48 cmDavid Girvin DO Work Phone: [facility]02-11-2025 09:12-0500 Body mass index (BMI) [Ratio]28.1 kg/n3Qaxzf Girvin DO Work Phone: [phone])[address] [place], [place] 2408502-11-2025 09:12-0500 Body fcqqlymjhpz54.8 [degF]Roma Pritchard DO Work Phone: [phone])[address] [place], [place] 2408502-11-2025 09:12-0500 Body ljsabj40.85 kgDavid Girvin DO Work Phone: [phone])[address] [place], [place] 2408502-11-2025 09:12-0500 Diastolic blood lfytkrip03 mm[Hg]Roma Pritchard DO Work Phone: [phone])[address] [place], [place] 2408502-11-2025 09:12-0500 Heart rate78 /minDbrendacarl Ritchievin DO Work Phone: [phone])[address] [place], [place] 2408502-11-2025 09:12-0500 SaO2% (BldA) [Mass fraction]95 %Roma Pritchard DO Work Phone: [phone])[address] [place], [place] 2408502-11-2025 09:12-0500 Systolic blood zeftcleo037 mm[Hg]Roma Pritchard DO Work Phone: [phone])[address] [place], [place] 2408501-13-2025 11:31-0500 Body .48 cmDavicarl Ritchievin DO Work Phone: 1(354)[address] [place], [place] 2408501-13-2025 11:31-0500 Body mass index (BMI) [Ratio]28.1 kg/n3Swxdf Ermavin DO Work Phone: [phone])[address] [place], [place] 2408501-13-2025 11:31-0500 Body .85 kgDacarri Ritchievin DO Work Phone: [phone])[address] [place], [place] 2408501-13-2025 11:31-0500 Diastolic blood hodwzprc13 mm[Hg]Roma Pritchard DO Work Phone: [phone])[address] [place], [place] 2408501-13-2025 11:31-0500 Heart rate62 /Deniscarl Ritchievin DO Work Phone: 1(614)[address] [place], [place] 2408501-13-2025 11:31-0500 SaO2% (BldA) [Mass fraction]97 %Roma Pritchard DO Work Phone: [facility]01-13-2025 11:31-0500 Systolic blood uzmiogps374 mm[Hg]Roma Pritchard DO Work Phone: [facility]01-02-2025 10:30-0500 Body ibgvtb201.9 cmNicholemerita Brown DPM Work Phone: [facility] MedicineWcbrpfvyjy31-90-5571 10:30-0500Body mass index (BMI) [Ratio]28.15 kg/x5Omfisrqu Brown DPM Work Phone: [facility] MedicineDkmoryxrwi98-12-4141 10:30-0500Body ylhlxj30.59 kgNicholas Brown DPM Work Phone: [facility] MedicineWeshpdidmk56-21-6370 10:30-0500Respiratory rate18 /minNicholas Brown DPM Work Phone: [facility] MedicineIggvyjpaii72-67-7392 13:24-0500Body vbawdh082.9 cmNicholas Brown DPM Work Phone: [facility] MedicineKebvggtdtz44-91-0175 13:24-0500Body mass index (BMI) [Ratio]28.15 kg/p2Nowuhnco Brown DPM Work Phone: [facility] MedicineMdxoajqhka66-67-1664 13:24-0500Body rrfnyu35.59 kgNicholas Brown DPM Work Phone: [facility] MedicineHhacjcbhks82-88-4477 13:24-0500Respiratory rate16 /minNicholas Brown DPM Work Phone: [facility] MedicineOvgtgprgnl82-06-3097 09:14-0500Blood Pressure LocationORALIAAMARILYS DUONG [facility]11-21-2024 09:14-0500Diastolic blood zeryfnnh69 mm[Hg]MARIANA DUONG [facility]11-21-2024 09:14-0500Heart rate6 /minMARIANA DUONG [facility]11-21-2024 09:14-0500Systolic blood mm[Hg]MARIANA DUONG [facility]11-21-2024 08:34-0500Body .48 cmDavicarl Ritchiecarmen DO Work Phone: [phone])[address]11-21-2024 08:34-0500 Body mass index (BMI) [Ratio]27.6 kg/u0Pdsfocarri Pritchard DO Work Phone: [phone])[phone]11-21-2024 08:34-0500 Body upfoaxihlto08.7 [degF]Roma Pritchard DO Work Phone: 3(536)[address]11-21-2024 08:34-0500 Body bhokvq90.49 kgDacarri Ritchiecarmen DO Work Phone: 1([phone])[address]11-21-2024 08:34-0500 Diastolic blood bwrtrwcy35 mm[Hg]Roma Pritchard DO Work Phone: 1(951)[address]11-21-2024 08:34-0500 Heart rate66 /Edwina Pritchard DO Work Phone: 3(757)556-[address] [place], [place] 3788011-21-2024 08:34-0500 Respiratory rate16 /Edwina Pritchard DO Work Phone: 2(493)286-[address] [place], [place] 3788011-21-2024 08:34-0500 SaO2% (BldA) [Mass fraction]97 %Roma Pritchard DO Work Phone: 1(264)[address]11-21-2024 08:34-0500 Systolic blood kzxyhgyg929 mm[Hg]Roma Pritchard DO Work Phone: 1(034)[address]11-14-2024 10:26-0500 Body mass index (BMI) [Ratio]28.15 kg/x4KttozOrlando Vicente MD Work Phone: [facility] MedicineSuiyxntijh48-99-3319 10:26-0500Body wojurb56.59 kgOrlando Vicente MD Work Phone: [facility] MedicineJrmquenjqh68-35-3963 10:26-0500Diastolic blood rwvtjeml08 mm[Hg]Orlando Vicente MD Work Phone: [place] [address]Hsakqmdrio19-89-6436 10:26-0500Systolic blood xzogitks506 mm[Hg]Orlando Vicente MD Work Phone: [facility] MedicineDkluneselj64-81-0894 11:21-0500Body tvrfee974.9 cmJuan Yates DPM Work Phone: 1(833)146-[address] [place], [place] [address]Ozfmynurpx42-61-1742 11:21-0500Body mass index (BMI) [Ratio]27.21 kg/s5FarmdifsJuan Yates DPM Work Phone: 1(740)493-[address] [place], [place] [address]Edrbroowjc06-87-4425 11:21-0500Body wuiifo00.32 kgJuan Yates DPM Work Phone: [place] [address]Diohnwfugy97-91-4803 11:21-0500Diastolic blood mm[Hg]Juan Yates DPM Work Phone: 1(421)992-[address] [place], [place] [address]Ttikprbkau64-59-5176 11:21-0500Heart rate82 /min Juan Yates DPM Work Phone: 1(990)547-[address] [place], [place] [address]Abqcybuqxi21-85-0458 11:21-0500Systolic blood fglhxzup421 mm[Hg]Juan Yates DPM Work Phone: 1(447)020-[address] [place], [place] [address]Nqqedsqacm14-27-1218 10:08-0400Body azffly965.9 cmJuan Yates DPM Work Phone: 1([phone])936-[address] [place], [place] [address]Slihldgdsr89-13-2958 10:08-0400Body mass index (BMI) [Ratio]27.21 kg/w7SwtjxvvpJuan Yates DPM Work Phone: 1(539)434-[address] [place], [place] [address]Avtchhbprg28-81-3152 10:08-0400Body znsagb25.32 kgNicholemerita Yates DPM Work Phone: [facility] MedicineHvhqcmsvkz06-33-0706 10:08-0400Diastolic blood wdnasdsy07 mm[Hg]Juan Andrew DPM Work Phone: [facility] MedicineHvwfjzjeeb30-20-2602 10:08-0400Heart rate82 /min Juan Andrew DPM Work Phone: [facility] MedicineFjwwmcjaza91-51-8580 10:08-0400Systolic blood xwdmyryr735 mm[Hg]Juan Andrew DPM Work Phone: [facility] MedicineDonfheroxy10-44-0409 09:23-0400Body agiwpq321.48 cmDO Roma Pritchard Work Phone: [phone]71[facility]09-23-2024 09:23-0400 Body mass index (BMI) [Ratio]27.2 kg/m2DO Roma Pritchard Work Phone: 1(897)[address]09-23-2024 09:23-0400 Body fxuoiptfsgn00.3 [degF]DO Roma Pritchard Work Phone: 1(710)[address]09-23-2024 09:23-0400 Body umwiwn59.58 kgDO Roma Pritchard Work Phone: 1(800)[address]09-23-2024 09:23-0400 Diastolic blood jqyhkghs77 mm[Hg]DO Roma Pritchard Work Phone: 1(122)139[facility]28[facility]09-23-2024 09:23-0400 Heart rate75 /Linsey Pritchard Work Phone: 1([phone]09-23-2024 09:23-0400 Respiratory rate16 /Linsey Pritchard Work Phone: [phone])[phone]09-23-2024 09:23-0400 SaO2% (BldA) [Mass fraction]96 %DO Roma Pritchard Work Phone: [phone]09-23-2024 09:23-0400 Systolic blood dhlkztam010 mm[Hg]DO Roma Pritchard Work Phone: 1(276)[address]08-13-2024 08:57-0400 Body pulywb419.48 cmDO Roma Pritchard Work Phone: 1(372)[address] [place], [place] 2408508-13-2024 08:57-0400 Body mass index (BMI) [Ratio]27.4 kg/m2DO Roma Francheska Work Phone: 1(153)[address] [place], [place] 2408508-13-2024 08:57-0400 Body kykbgjxbqry22.3 [degF]DO Roma Pritchard Work Phone: 1(524)[address] [place], [place] 2408508-13-2024 08:57-0400 Body .03 kgDO Roma Ritchiecarmen Work Phone: 1(227)[address] [place], [place] 2408508-13-2024 08:57-0400 Diastolic blood mm[Hg]DO Roma Ermacarmen Work Phone: 1(898)[address] [place], [place] 2408508-13-2024 08:57-0400 Heart rate72 /Linsey Pritchard Work Phone: 1(175)[address] [place], [place] 2408508-13-2024 08:57-0400 Respiratory rate16 /Linsey Pritchard Work Phone: 1(509)[address] [place], [place] 2408508-13-2024 08:57-0400 SaO2% (BldA) [Mass fraction]95 %DO Roma Pritchard Work Phone: 1(977)[address] [place], [place] 2408508-13-2024 08:57-0400 Systolic blood iqaurfhu680 mm[Hg]DO Roma Francheska Work Phone: 1(257)[address] [place], [place] 2408505-14-2024 09:23-0400 Body drigtm460.48 cmDO Roma Ritchiecarmen Work Phone: 1(749)[address] [place], [place] 2408505-14-2024 09:23-0400 Body mass index (BMI) [Ratio]27.8 kg/m2DO Roma Ritchiecarmen Work Phone: 1(454)[address] [place], [place] 2408505-14-2024 09:23-0400 Body qmycudhebhu48 [degF]DO Roma Pritchard Work Phone: [facility]05-14-2024 09:23-0400 Body jakniw34.94 kgDO Roma Pritchard Work Phone: [phone]05-14-2024 09:23-0400 Diastolic blood ivopbcna18 mm[Hg]DO Roma Francheska Work Phone: 1([phone])[phone]05-14-2024 09:23-0400 SaO2% (BldA) [Mass fraction]97 %DO Roma Pritchard Work Phone: [phone]05-14-2024 09:23-0400 Systolic blood mm[Hg]DO Roma Francheska Work Phone: [phone]04-03-2024 09:13-0400 Body oqhitlcizxk33.6 [degF]MARIANA DUONG [facility]04-03-2024 09:13-0400Diastolic blood gxozfmrp91 mm[Hg]MARIANA RITCHIE [facility]04-03-2024 09:13-0400Heart rate77 /minJENNIFER RITCHIE [facility]04-03-2024 09:13-0400Respiratory rate16 /minJENNIFER RITCHIE [facility]04-03-2024 09:13-0400Systolic blood pwnjjysp842 mm[Hg]MARIANA RITCHIE [facility]03-04-2024 08:37-0500Body ooujwe496.48 cmDO Roma Pritchard Work Phone: [phone]02-08-2024 08:10-0500 Body cdqour592.48 cmDacarri Pritchard Other [facility] Other 02-08-2024 08:10-0500Body mass index (BMI) [Ratio] 26.34 kg/t5NcgtgRoma Pritchard Other [facility] Other 02-08-2024 08:10-0500Body nxkinskomyi67.8 [degF]Roma Pritchard Other [facility] Other 02-08-2024 08:10-0500Body dkaswn34.32 kgDacarri Pritchard Other [facility] Other 02-08-2024 08:10-0500Diastolic blood cufhkbmc59 mm[Hg] Roma Pritchard Other [facility] Other 02-08-2024 08:10-0500Respiratory rate16 /minDthanh Pritchard Other [facility] Other 02-08-2024 08:10-4695VoI0% (BldA) [Mass fraction]95 % Roma Pritchard Other [facility] Other 02-08-2024 08:10-0500Systolic blood zyhnghpd339 mm[Hg] Roma Pritchard Other [facility] Other 01-15-2024 11:00-0500Body mydxkb102.48 Braxton Wilson Other [facility]01-15-2024 11:00-0500 Body mass index (BMI) [Ratio]26.52 kg/t8MlqptTanna Wilson Other [facility] [employer] Other 01-15-2024 11:00-0500Body lyvfdo28.77 kgPeggy Wilson Other [facility]01-15-2024 11:00-0500 Diastolic blood fkjgbymw55 mm[Hg]Tanna Wilson Other [facility]01-15-2024 11:00-0500 SaO2% (BldA) [Mass fraction]97 %Tanna Wilson Other [place] [employer] Other [id number] 11:00-0500Systolic blood qfewwuln813 mm[Hg] Tanna Wilson Other [facility]01-09-2024 08:15-0500 Body yyfbmj245.48 cmColby Shaffer Other [facility]01-09-2024 08:15-0500 Body mass index (BMI) [Ratio]26.34 kg/k2CmruqColby Shaffer Other [facility] [employer] Other 01-09-2024 08:15-0500Body wxlajx58.32 kgKecarmen Shaffer Other [employer] Other 01-09-2024 08:15-0500Body .31 kgDO Roma Francheska Work Phone: [facility]11-14-2023 08:15-0500 Blood Pressure LocationJENNIFER RITCHIE [facility]11-14-2023 08:15-0500Diastolic blood ppotocsf71 mm[Hg]MARIANA RITCHIE [facility]11-14-2023 08:15-0500Heart rate75 /minJENNIFER RITCHIE [facility]11-14-2023 08:15-0500Respiratory rate16 /minMARIANA DUONG [facility]11-14-2023 08:15-0500Systolic blood mm[Hg]MARIANA DUONG [facility]11-08-2023 10:30-0500Body oysiuj078.48 cmRoma Pritchard Other [place] [employer] Other [id number] 12:20-0400Diastolic blood ppkelmdq27 mm[Hg] DO Roma Pritchard Work Phone: [phone]2023 12:20-0400 Heart rate74 /Linsey Pritchard Work Phone: [phone])992-04[facility]2023 12:20-0400 Respiratory rate16 /Linsey Pritchard Work Phone: 1([phone])[phone]2023 12:20-0400 SaO2% (BldA) [Mass fraction]98 %DO Roma Pritchard Work Phone: 4([phone])[phone]2023 12:20-0400 Systolic blood mrmboazt383 mm[Hg]DO Roma Pritchard Work Phone: 1(993)[phone]2023 10:51-0400 Body qzmbbxlhmaa86.4 [degF]DO Roma Pritchard Work Phone: [phone]2023 10:11-0400 Inhaled oxygen flow rate3 L/Linsey Pritchard Work Phone: [phone]2023 07:41-0400 Body dyuroq689.02 cmDO Roma Pritchard Work Phone: [phone]2023 07:41-0400 Body mass index (BMI) [Ratio]24.5 kg/m2DO Roma Pritchard Work Phone: [facility]2023 07:41-0400 Body ficudo94 kgDO Roma Pritchard Work Phone: [facility]08-31-2023 09:30-0400 Body kfxdbu117.48 cmRobert Monroe II Other [facility] Other 08-31-2023 09:30-0400Body mass index (BMI) [Ratio]25.6 kg/j8Uabcsp Monroe II Other [facility] Other 08-31-2023 09:30-0400Body ybkqzp18.5 kgRobert Virgil II Other [facility] Other 05-04-2023 10:10-0400Body .48 cmDacarri Pritchard Other [facility] Other 05-04-2023 10:10-0400Body mass index (BMI) [Ratio] 25.79 kg/k2Xooedcarri Pritchard Other [facility] Other 05-04-2023 10:10-0400Body fqunyh71.96 kgDacarri Pritchard Other [facility] Other 05-04-2023 10:10-0400Diastolic blood bvzjhtky34 mm[Hg] Roma Pritchard Other [facility] Other 05-04-2023 10:10-0400Systolic blood rajvjrbq508 mm[Hg] Roma Pritchard Other [facility] Other 02-08-2023 10:10-0500Body gakyfq121.48 cmDacarri Pritchard Other [facility] Other 02-08-2023 10:10-0500Body mass index (BMI) [Ratio] 26.98 kg/m8DygzkRoma Pritchard Other [facility] Other 02-08-2023 10:10-0500Body eqsortqsnjo07.7 [degF]Roma Pritchard Other [facility] Other 02-08-2023 10:10-0500Body qiovwh51.91 kgDacarri Pritchard Other [facility] Other 02-08-2023 10:10-0500Diastolic blood jdrlaezb04 mm[Hg] Roma Pritchard Other [facility] Other 02-08-2023 10:10-0500Respiratory rate18 /minDavicarl Pritchard Other [facility] Other 02-08-2023 10:10-1467LnH7% (BldA) [Mass fraction]97 % Roma Pritchard Other [facility] Other 02-08-2023 10:10-0500Systolic blood rozclafh120 mm[Hg] Roma Pritchard Other [facility] Other 01-11-2023 10:00-0500Body zyqdtx134.48 cmRobert Virgil II Other [facility] Other 01-11-2023 10:00-0500Body mass index (BMI) [Ratio] 26.88 kg/q8Gjwcne Monroe II Other [facility] Other 01-11-2023 10:00-0500Body dzfsvi65.68 kgRobert Monroe II Other [facility] Other 01-03-2023 11:15-0500Body ibgrua882.48 cmPeggy Wilson Other [facility] Other 01-03-2023 11:15-0500Body mass index (BMI) [Ratio] 26.88 kg/f0Ycrvp Wilson Other [facility] Other 01-03-2023 11:15-0500Body spulveugbwo98.8 [degF]Tanna Wilson Other [facility] Other 01-03-2023 11:15-0500Body .68 kgPeggy Wilson Other [facility] Other 01-03-2023 11:15-0500Diastolic blood ywlcbsik14 mm[Hg] Tanna Wilson Other [facility] Other 01-03-2023 11:15-3059TuK1% (BldA) [Mass fraction]96 % Tanna Wilson Other [facility] Other 01-03-2023 11:15-0500Systolic blood trkfdedf843 mm[Hg] Tanna Wilson Other [facility] Other 11-08-2022 10:10-0500Body jtyhyo816.48 cmDavid Francheska Other [facility] Other 08-10-2022 09:10-0400Body .48 cmDavid Francheska Other [facility] Other 08-10-2022 09:10-0400Body mass index (BMI) [Ratio] 27.36 kg/e7Sbtqecarri Pritchard Other [facility] Other 08-10-2022 09:10-0400Body .86 kgDacarri Pritchard Other [facility] Other 08-10-2022 09:10-0400Diastolic blood opdywtjc83 mm[Hg] Roma Pritchard Other [facility] Other 08-10-2022 09:10-0400Systolic blood okjunzhf713 mm[Hg] Roma Pritchard Other [facility] Other 05-04-2022 09:50-0400Body .48 cmDacarri Pritchard Other [facility] Other 03-15-2022 09:30-0400Body nxofjk078.48 cmPegtian Wilson Other [facility] Other 03-15-2022 09:30-0400Body mass index (BMI) [Ratio] 28.44 kg/t4GsmqeTanna Wilson Other [facility] Other 03-15-2022 09:30-0400Body nbzxotlybbe85.1 [degF]Tanna Wilson Other [facility] Other 03-15-2022 09:30-0400Body hunobx88.53 kgPeggy Wilson Other [facility] Other 03-15-2022 09:30-0400Diastolic blood ylcjcprk13 mm[Hg] Tanna Wilson Other [facility] Other 03-15-2022 09:30-9043MoG8% (BldA) [Mass fraction]97 % Tanna Wilson Other [facility] Other 03-15-2022 09:30-0400Systolic blood oqwdrprh701 mm[Hg] Tannatian Wilson Other [facility] Other 02-25-2022 11:45-0500Body roggrz330.48 cmCollpete Asencio Other [facility] Other 02-25-2022 11:45-0500Body mass index (BMI) [Ratio] 27.62 kg/r0Gfraommpete Asencio Other [facility] Other 02-25-2022 11:45-0500Body gzkura50.49 kgCojason Asencio Other [facility] Other 01-28-2022 09:10-0500Body rsbcas470.48 cmDacarri Pritchard Other [facility] Other 01-28-2022 09:10-0500Body mass index (BMI) [Ratio] 28.16 kg/p8NovlbRoma Pritchard Other [facility] Other 01-28-2022 09:10-0500Body bewifcyvivk53.6 [degF]Roma Pritchard Other [facility] Other 01-28-2022 09:10-0500Body weibth84.85 kgDacarri Pritchard Other [facility] Other 01-28-2022 09:10-0500Diastolic blood oikjcmnd11 mm[Hg] Roma Pritchard Other [facility] Other 01-28-2022 09:10-0500Respiratory rate16 /Edwina Pritchard Other [facility] Other 01-28-2022 09:10-7587FsJ5% (BldA) [Mass fraction]99 % Roma Pritchard Other [facility] Other 01-28-2022 09:10-0500Systolic blood zcqvzbla287 mm[Hg] Roma Pritchard Other [facility] Other 10-26-2021 09:10-0400Body .48 cmDacarri Pritcahrd Other [facility] Other 10-26-2021 09:10-0400Body mass index (BMI) [Ratio] 28.16 kg/b9Rfbqmcarri Pritchard Other [employer] Other 10-26-2021 09:10-0400Body .3 [degF]Roma Pritchard Other [facility] Other 10-26-2021 09:10-0400Body .85 kgDacarri Pritchard Other [facility] Other 10-26-2021 09:10-0400Diastolic blood tmaidjpd07 mm[Hg] Roma Pritchard Other [facility] Other 10-26-2021 09:10-0400Respiratory rate18 /Edwina Pritchard Other [facility] Other 10-26-2021 09:10-7867ZrU5% (BldA) [Mass fraction]97 % Roma Pritchard Other [facility] [employer] Other 10-26-2021 09:100400Systolic blood iiolqlyh425 mm[Hg] Roma Pritchard Other [facility] [employer] Other Encounters Encounter DateEncounter TypeCare ProviderFacilityStart: 90-05-1639cxnxtysibx Mady TannaFacility:EU [place]vueStart: 10-20-2024 End: 44-89-8035Lhwgdh outpatient visit 15 minutesJuan Yates DPM Work Phone: noms CI PODIATRYComment on above:Left Achilles tendinitis (Primary Dx); Pain due to onychomycosis of toenails of both feet; Contracture of left ankleStart: 10-20-2024 End: 75-51-4287ztytfqxcrmEBHFZHNS A BROWNNot AvailableStart: 10-20-2024 End: 14-91-4446Fznrat flowsheetJuan Yates DPM Work Phone: noms CI PODIATRYStart: 10-20-2024 End: 50-59-5623Atzvoekenneth Yates DPM Work Phone: noms CI PODIATRYStart: 10-20-2024 End: 48-85-2291Xljsvdh encounter procedureDacarri Pritchard DO-CT Scan [address] [place] Work Phone: Start: 10-20-2024 End: 32-12-7328lgamedhgnfJfyqo Girvin DO Work Phone: [facility] Work Phone: Start: 10-17-2024 End: 62-32-5772irwawkqocmJrxuq Girvin DO Work Phone: [facility] Work Phone: Start: 10-17-2024 End: 93-25-0752Yamvulh encounter procedureDacarri Pritchard DO-[facility] [place] Work Phone: Start: 10-04-2024 End: 64-60-3660Efedwak encounter procedureDaortizcarl Pritchard DO-Lab [place] Work Phone: Start: 10-04-2024 End: 46-49-9344replpbwproQxfpl Girvin DO Work Phone: [facility] Work Phone: Start: 08-04-2024 End: 24-62-1916Uregufkenneth Yates DPM Work Phone: noms CI PODIATRYStart: 08-04-2024 End: 06-89-4235Psckdq Cayden Yates DPM Work Phone: noms CI PODIATRYStart: 08-04-2024 End: 88-77-8829Plpyuw outpatient visit 15 minutesNicjosie Yates DPM Work Phone: noms CI PODIATRYComment on above:Left Achilles tendinitis (Primary Dx); Pain due to onychomycosis of toenails of both feet; Contracture of left ankleStart: 08-04-2024 End: 37-53-0923irqymlggjzKUPPZBEU A BROWNNot AvailableStart: 07-06-2024 End: 36-91-5698kvedsbewajBrranrcmpCleveland Clinic [facility] Work Phone: Start: 07-06-2024 End: 80-31-3213Vewimxb [facility] [place] Work Phone: Start: 05-19-2024 End: 73-65-9266Dbecagkenneth Yates DPM Work Phone: noMS CI PODIATRYStart: 05-19-2024 End: 60-88-9806Slyqrc Cayden Yates DPM Work Phone: noms CI PODIATRYStart: 05-19-2024 End: 03-58-4561ztxclejylcTJNRAUEM A BROWNNot AvailableStart: 05-19-2024 End: 97-06-9685Vhvgdv outpatient visit 15 minutesJuan Yates DPM Work Phone: noms CI PODIATRYComment on above:Left Achilles tendinitis (Primary Dx); Contracture of left ankle; Pain due to onychomycosis of toenails of both feetStart: 05-05-2024 End: 65-94-6505Akavwr outpatient visit 25 minutesNatkevin Zamorano TOWN PLANNER-MEDICAL ASSISTANT PER DIEM Work Phone: noms SWS DERMComment on above:Seborrheic keratosis; Lentigines; Actinic keratosis; Melanocytic nevus of trunk; Other rosacea; Other seborrheic dermatitisStart: 05-05-2024 End: 07-69-9511cgazstlcrmPYRNIWA A FELTERNot AvailableStart: 04-05-2024 End: 95-75-1333vvzdchkcqrHewry Girvin DO Work Phone: [facility] Work Phone: Start: 04-05-2024 End: 75-84-9236Mvbzpdd encounter procedureDavid Francheska DO Work Phone: [facility] Work Phone: Start: 03-21-2024 End: 66-33-9267Gjheckq encounter procedureDavid Francheska DO Work Phone: [facility] [place] Work Phone: Start: 03-21-2024 End: 89-04-2147gpkxepqixoCkujb Girvin DO Work Phone: [facility] Work Phone: Start: 03-07-2024 End: 05-76-0381rpctflfdflNrype Girvin DO Work Phone: [facility] Work Phone: start: 03-07-2024 End: 66-81-8229Mxvmyes encounter procedureDaortizcarl Francheska DO Work Phone: [facility] Work Phone: Start: 03-01-2024 End: 18-23-4892Zdbhadkrj encounterNicjosie Tyler Brown DPM Work Phone: noms ME PODStart: 02-25-2024 End: 26-84-0875Fihrfm flowsheetNicholas A Brown DPM Work Phone: noms CI PODIATRYStart: 02-25-2024 End: 46-22-7012Qxwurt flowsheetNicholas A Brown DPM Work Phone: noms CI PODIATRYStart: 02-25-2024 End: 04-76-4560Bsvefimtp encounterMame Read [facility] Ankle SpecialistsComment on above:dexamethasoneStart: 02-25-2024 End: 55-59-7627Mhpjod outpatient visit 15 minutesNicholas A Brown DPM Work Phone: noms CI PODIATRYComment on above:Left Achilles tendinitis (Primary Dx); Contracture of left ankle; Pain due to onychomycosis of toenails of both feetStart: 02-25-2024 End: 19-13-2680teiznulmtyIXFNSPMK A BROWNNot AvailableStart: 02-11-2024 End: 19-32-3460Htgypr flowsheetNicholas A Brown DPM Work Phone: noms CI PODIATRYStart: 02-11-2024 End: 96-21-8419Bwjhhh flowsheetNicholas A Brown DPM Work Phone: noms CI PODIATRYStart: 02-11-2024 End: 82-14-7093Kbiras outpatient visit 15 minutesNicholas A Brown DPM Work Phone: noms CI PODIATRYComment on above:Left Achilles tendinitis (Primary Dx); Contracture of left ankleStart: 02-11-2024 End: 92-43-1549ucqsirxnpyWGUDIVLB Nayeli ANDREWNot AvailableStart: 01-22-2024 End: 23-87-9423Btdneut encounter procedureDavid Gircarmen DO Work Phone: [facility] Work Phone: Start: 01-22-2024 End: 76-39-6297oevqzomxtzEwipm GirvinFacility:[facility] Start: 01-14-2024 End: 72-05-8576ldytrovotxKfohh Girvin DO Work Phone: [facility] Work Phone: Start: 01-14-2024 End: 23-79-5883Yupqgsd encounter procedureDavid Ermacarmen DO Work Phone: [facility] Family [facility] [place] Work Phone: Start: 01-14-2024 End: 96-97-6088pzdyaejqkgPVISCHZQ E PERRYFacility:EU [place]vueStart: 01-14-2024 End: 55-79-6740Xhunqut encounter procedureJENNIFER E RITCHIE [facility] start: 01-07-2024 End: 92-24-7416Xagyjg Francoise Vicente MD Work Phone: [facility]oms [facility] OBStart: 01-07-2024 End: 79-69-7446Wlyqrq Francoise Vicente MD Work Phone: noms SWS OBStart: 01-07-2024 End: 27-75-2485Igdiwp outpatient visit 15 minutesOrlando Vicente MD Work Phone: noms [facility] OBComment on above:OAB (overactive bladder) (Primary Dx); Other screening mammogramStart: 01-07-2024 End: 50-66-0972qsoxenfrttZXAIQNanci Waslh AvailableStart: 12-31-2023 End: 41-48-5120Gbsaih Cayden Yates DPM Work Phone: noMS CI PODIATRYStart: 12-31-2023 End: 36-28-6846Mwlcjy flowsheetNicholas A Brown DPM Work Phone: noms CI PODIATRYStart: 12-31-2023 End: 64-35-0139Tekuxr outpatient visit 15 minutesNicholas A Brown DPM Work Phone: noms CI PODIATRYComment on above:Left Achilles tendinitis (Primary Dx); Contracture of left ankleStart: 12-31-2023 End: 66-82-9142hejhkekufvKOLYAAFE A BROWNNot AvailableStart: 12-17-2023 End: 06-78-3236Lrmezu flowsheetNicholas A Brown DPM Work Phone: noms CI PODIATRYStart: 12-17-2023 End: 47-60-8579Cpxaul flowsheetNicholas A Brown DPM Work Phone: noMS CI PODIATRYStart: 12-17-2023 End: 86-65-9210Czczgn outpatient visit 15 minutesNicizabellaas A Brown DPM Work Phone: noms CI PODIATRYComment on above:Left Achilles tendinitis (Primary Dx); Contracture of left ankle; Pain due to onychomycosis of toenails of both feetStart: 12-17-2023 End: 60-69-9815bnhrlswqteDNEYCVMY A BROWNNot AvailableStart: 67-37-7970Pli- patient / Non-visitDavicarl Pritchard DO Work Phone: [facility] Work Phone: Start: 11-16-2023 End: 46-35-5786eavnpcjpwsOMFrantz Pritchard Work Phone: [facility] Work Phone: Start: 11-16-2023 End: 83-95-4894Boquofm encounter procedureDO Roma Pritchard Work Phone: [facility] [place] Work Phone: Start: 10-22-2023 End: 32-94-0989jeokejoursON David Girvin Work Phone: [facility] Work Phone: Start: 10-22-2023 End: 77-30-0902Dluuowk encounter procedureDO Roma Pritchard Work Phone: [facility]-[address] Work Phone: Start: 10-06-2023 End: 94-21-2082ejvsoftonyHH David Girvin Work Phone: [facility] Work Phone: Start: 10-06-2023 End: 25-94-5576Xszjivx encounter procedureDO Roma Pritchard Work Phone: [facility] [place] Work Phone: Start: 10-01-2023 End: 80-83-6687bztcrberhdUO David Girvin Work Phone: [facility] Work Phone: Start: 10-01-2023 End: 31-26-5457Iwoegpo encounter procedureDO Roma Pritchard Work Phone: [facility] [place] Work Phone: Start: 07-07-2023 End: 15-42-0539Ubuvhln encounter procedureDO Roma Pritchard Work Phone: [facility] [place] Work Phone: Start: 06-11-2023 End: 45-44-6522seqvoqvqdeKM David Girvin Work Phone: [facility] Work Phone: Start: 06-11-2023 End: 23-83-5206Aghpupw encounter procedureDO Roma Pritchard Work Phone: [facility]-[address] Work Phone: Start: 05-27-2023 End: 52-09-4219otyrcxsroyGO David Girvin Work Phone: [facility] Work Phone: Start: 05-27-2023 End: 73-14-1365Ladrlpq encounter procedureDO Roma Pritchard Work Phone: [facility] Work Phone: Start: 04-27-2023 End: 64-65-9272Wehtcwn encounter procedureDO Roma Pritchard Work Phone: [facility] Work Phone: Start: 04-02-2023 End: 39-59-5915uxnqqauzjlSdlys Girvin Other [place] [employer] Other Start: 95-29-4879Duvoid outpatient visit 25 minutes Roma Mccarthy [facility] [place]vueStart: 03-25-2023 End: 31-99-7225uaqbcjohvkOD David Girvin Work Phone: [facility] Work Phone: Start: 03-25-2023 End: 69-23-7370Nfhzgxb encounter procedureDO Roma Pritchard Work Phone: [facility] [place] Work Phone: Start: 05-17-1601Gyhjwa outpatient visit 15 minutes Tanna [facility] Medical OutPtStart: 03-09-2023 End: 92-33-0291rpkxdgthmwKS David Girvin Work Phone: [facility] Work Phone: Start: 03-09-2023 End: 81-03-3941Vazjsck encounter procedureDO Roma Pritchard Work Phone: [facility]-Sleep Lab Work Phone: Start: 03-09-2023 End: 32-64-9624Idsibay encounter procedureDO Roma Pritchard Work Phone: [facility] Work Phone: Start: 03-04-2023 End: 51-40-8438pccajloexpQsxbd Bailey Other [facility] [employer] Other Start: 47-51-3309Hrjqlexmz encounterColby Strickland OrthopedicsStart: 54-80-3445Qooiow outpatient new 45 minutesKecarmen [place] OrthopedicsStart: 03-03-2023 End: 12-44-0205syfheaifitPX Roma Pritchard Work Phone: [facility] Work Phone: Start: 03-03-2023 End: 83-78-7450Pecfjem encounter procedureDO Roma Pritchard Work Phone: [facility] [place] [facility] Start: 03-03-2023 End: 94-85-9126Udskhtx encounter procedureDO Roma Pritchard Work Phone: [facility] Work Phone: Start: 01-19-2023 End: 58-69-6119wlqyvgrlnaNU Roma Pritchard Work Phone: [facility] Work Phone: Start: 01-19-2023 End: 44-99-5124Uzunrqf encounter procedureDO Roma Pritchard Work Phone: [facility] Work Phone: Start: 01-06-2023 End: 85-48-2325Ojanpcw encounter procedureJENNIFER E RITCHIE [facility] start: 01-01-2023 End: 11-50-0547mjnpwvwoaxDnktc Girvin Other [facility] [employer] Other Start: 49-66-5215Saqjjljmz encounterDavicarl Mccarthy [facility]Start: 12-31-2022 End: 85-29-5589xywneojocuUsyyh Girvin Other [place] [employer] Other Start: 72-98-3756Hxsccjrdi encounterDacarri Mccarthy [facility] Childrentart: 12-31-2022 End: 97-34-1217Cvarfmf encounter procedureDO Roma Pritchard Work Phone: [facility] Work Phone: Start: 12-26-2022 End: 91-95-0222lvrvbvnjagSC Roma Pritchard Work Phone: [facility] Work Phone: Start: 12-26-2022 End: 25-58-3977Ungqtns encounter procedureDO Roma Pritchard Work Phone: [facility] [place] Work Phone: Start: 12-17-2022(Post-Op) Post-OpRobert Virgil II [facility] [place] OrthopedicsStart: 12-17-2022 End: 46-68-3110epkqknaoebXfexyx Monroe II Other [facility] [employer] Other Start: 12-17-2022 End: 72-05-3548Ykujkgm encounter procedureDO Roma Pritchard Work Phone: [facility] [place] [facility] Start: 11-19-2022(Post-Op) Post-OpRobert Monroe IIFPG [facility] Start: 11-19-2022 End: 83-86-7113ftykrbflejZunaue Monroe II Other [facility] Other Start: 11-06-2022 End: 60-62-4960kmhoukdfjkFjuckq Monroe II Other [facility] Other Start: 75-35-5686Qdtdcseul encounterRobert Virgil II [facility] [place] OrthopedicsStart: 11-04-2022 End: 89-66-7945Xguyxncar to same day surgery couplandDO Roma Pritchard Work Phone: [facility]Start: 10-29-2022 End: 07-18-4031zuqiipoeicFxnjeu Virgil II Other [facility] Other Start: 20-36-3807Tlwbsuweb encounterRobert Monroe II [facility] [place] OrthopedicsStart: 10-24-2022(Prolonged) Prolonged ServicesRobert Monroe IIFPG [place] [facility]opedicsStart: 10-24-2022 End: 85-64-8269ypxcknevuqWwawrq Virgil II Other [facility] Other Start: 09-48-3957Gjbiepq encounter procedureRobert Virgil IIFPG [place] OrthopedicsStart: 10-23-2022 End: 51-04-7272ftddoxtoazEE David Girvin Work Phone: [facility] Work Phone: Start: 10-23-2022 End: 61-90-7354Ptjsxldbcq [facility]DO Roma Pritchard Work Phone: [facility]-Physical Therapy [place] CreekStart: 10-17-2022 End: 15-92-5332wwzzfeznboZR David Girvin Work Phone: [facility] Work Phone: Start: 10-17-2022 End: 61-98-8957Uygbgix encounter procedureDO Roma Francheska Work Phone: [facility] Work Phone: Start: 09-30-2022 End: 04-91-1010kjdapwjehzZembo Girvin Other [facility] Other Start: 93-04-5499Goxxsybnw encounterDavicarl Mccarthy [facility] [place]Start: 09-19-2022 End: 66-90-2311oeskcquqlfEwcjs Girvin Other [facility] Other Start: 72-89-6814Zlijqsigy encounterDavicarl Mccarthy [place] [facility]opedicsStart: 09-18-2022 End: 59-09-2786mmsqckhkxcDvlllr Virgil II Other [employer] Other Start: 42-23-0005Ljghpjwje encounterRobert Virgil II [facility] [place] OrthopedicsStart: 09-15-2022 End: 74-75-3403Zhhrqyh encounter procedureDO Roma Francheska Work Phone: [facility] [place] Work Phone: Start: 09-10-2022 End: 78-60-3817cpurmokputBlhrk Girvin Other [facility] Other start: 42-97-2667Uzbjvgfwj encounterDacarri Mccarthy [facility] [place]Start: 06-26-2022 End: 41-55-8535sjelgwyjojBfsgt Girvin Other [facility] Other Start: 60-36-8811Ywmmfxnco encounterDavid Shari [facility] [place]Start: 06-12-2022 End: 95-37-2980ypqoawohtmWoshk Girvin Other [facility] [employer] Other Start: 24-46-5713Bmjqzxiic encounterDavicarl Mccarthy [facility] [place]Start: 04-15-2022 End: 42-60-2241bjwrteqxavPpwzl Girvin Other [facility] [employer] Other Start: 28-82-6791Osjrjzgjy encounterDacarri Mccarthy [facility] [place]Start: 04-11-2022 End: 49-76-2290hwqvvftsxdSX DAVID GIRVINFacility:P8Cbhtj: 04-09-2022 End: 22-21-3234xblyarklxaLZChriss PRITCHARDFacility:D0Tliav: 04-07-2022 End: 05-15-8079bkirfuhsqqBtvdr Girvin Other [facility] [employer] Other Start: 93-53-7191Ywihigpig encounterDacarri Mccarthy [facility] [place]Start: 04-04-2022 End: 40-02-5313bkubpwkwntZUAni Sawantcility:Q6Mdfpu: 04-02-2022 End: 42-64-9795lxydakemgyJspyq Girvin Other [facility] [employer] Other Start: 15-41-7144Ozlixr outpatient visit 25 minutes Roma Mccarthy [facility] [place]Start: 03-28-2022 End: 87-64-1731vdqropoclkWC David Girvin Work Phone: [facility] Work Phone: Start: 03-28-2022 End: 97-63-0612Jvwtqqf encounter procedureDO Roma Pritchard Work Phone: [facility] [place] Work Phone: Start: 03-17-2022 End: 73-58-8731kwpkwvifxiWctpu Girvin Other [facility] [employer] Other Start: 13-34-0651Lvzarrher encounterDacarri Mccarthy Family [facility] [place]vueStart: 03-13-2022 End: 57-19-2818ztiwpvpwraCifux Girvin Other [employer] Other Start: 47-68-3079Bkeqpkpnq encounterDavicarl Mccarthy Family [facility] Hospitaltart: 47-71-9822WPQS visit new patientRobert Monroe IIFPG [place] OrthopedicsStart: 03-05-2022 End: 58-58-4249yzgspzprgcQY David Girvin Work Phone: [facility] Work Phone: Start: 03-05-2022 End: 53-42-1442Jmasqxz encounter procedureDO Roma Pritchard Work Phone: [facility] [place] [facility] Start: 99-72-0345Tsgmri outpatient visit 15 minutesPeggy [facility] SouthStart: 02-25-2022 End: 63-12-1392dngzarnpxjUF David Girvin Work Phone: [facility] Work Phone: Start: 02-25-2022 End: 71-88-2501Etlhnmn encounter procedureDO Roma Pritchard Work Phone: [facility]-Sleep Lab Work Phone: Start: 01-21-2022 End: 49-43-6732dyxjgpbdyyTehpn Girvin Other [facility] [employer] Other Start: 93-50-6695Ykjibjdyr encounterDavicarl Mccarthy [facility] [place]Start: 01-17-2022 End: 25-68-4721Eiclgse encounter procedureDO Roma Pritchard Work Phone: [facility] Work Phone: Start: 01-13-2022 End: 58-85-7078btifaixqovBvhhc Girvin Other [facility] Other Start: 58-02-9399Dfqykwndh encounterDavid JordanG Family Medicine [place]Start: 01-11-2022 End: 10-16-8360drqetlcyfkVP David Girvin Work Phone: [facility] Work Phone: Start: 01-11-2022 End: 17-09-6974Gflsdix encounter procedureDO Roma Pritchard Work Phone: [facility] [place] Start: 01-08-2022 End: 07-34-9099ptvtfmtmqoTyiwp Girvin Other [facility] Other Start: 56-88-3938Uiblfnqkj encounterDavicarl OrtegaG Family Medicine [place]Start: 12-31-2021 End: 84-35-2492twakgldladTzhun Girvin Other [employer] Other Start: 79-62-5839Vhxnnuyzp encounterDavicarl Mccarthy [facility] [place]Start: 12-30-2021 End: 01-60-2573zeulzywvhcWRAni Mondragoncility:D2Oedyv: 12-04-2021 End: 25-06-3550gohsuwrsrrJyttt Girvin Other [facility] Other Start: 38-87-2925Dgoguwttr encounterDavid JordanG Family Medicine [place]Start: 10-29-2021 End: 62-02-4762lnxpgdxyzsVDAni Sawantcility:W4Ymfxv: 10-21-2021 End: 87-65-5908otnvcmzqmeKeeam Girvin Other [facility] [employer] Other Start: 15-86-3387Ucsyzwupl encounterDacarri Mccarthy [facility] [place]Start: 10-17-2021 End: 33-95-4893ygupeerktoYA DAVID GIRVINFacility:F9Cedam: 10-11-2021 End: 42-18-9684khcrqkwymtHlqvb Girvin Other [facility] [employer] Other Start: 27-15-6344Swrsioyoi encounterDavicarl Mccarthy [facility] [place]Start: 10-02-2021 End: 40-61-3214bjjlzmlrcsObdwq Girvin Other [facility] [employer] Other Start: 95-80-5483Yerepuruv encounterDavicarl Mccarthy [facility] [place]Start: 09-23-2021 End: 75-77-0979Fzgmgpf encounter procedureDO Roma Pritchard Work Phone: [facility]-Lab [place]Start: 09-19-2021 End: 74-25-3722uswglflhnjEYAni Sawantcility:N8Nfcsj: 08-29-2021 End: 48-89-7139rgftnqezhgUG DAVID GIRVINFacility:O5Iopcz: 08-12-2021 End: 42-53-8894aslkvbncrcOpmuq Girvin Other [facility] [employer] Other Start: 86-69-2220Udyerijpl encounterDacarri Mccarthy [facility] [place]Start: 08-08-2021 End: 02-13-3200rpdbqvtrrjFDAni Lobo [employer] Other Start: 81-48-8496Fdorhgnoc encounterDavid GirvinFPG [facility] Medicine [place]Start: 08-02-2021 End: 37-92-1049alkvhwhtjoUwfeg Francheska Other [facility] Other Start: 67-60-2722Ccxpekvfm encounterDavid GirvinFPG Family Medicine [place]Start: 06-26-2021 End: 39-19-2094qwwoyyaehjOxevr Francheska Other [facility] [employer] Other start: 21-36-4355Qamyiiaco encounterDavid GirvinFPG [facility] Medicine [place]Start: 06-18-2021 End: 53-68-5896cpvzvwgbhbGuyqm Francheska Other [facility] [employer] Other Start: 50-69-5691Cwzelepnd encounterDavid GirvinFPG [facility] Medicine [place]Start: 05-07-2021 End: 60-73-4184wsqlczsmyjUnxny Wilson Other [employer] Other Start: 58-93-6342Xozvsj outpatient visit [facility] 04-24-2021 End: 48-88-5745sshjkcnsrbKmmfv Francheska Other [facility] [employer] Other Start: 68-46-0294Gdotjtkyk encounterDavid GirvinFPG Family Medicine [place]Start: 04-19-2021 End: 70-77-3657qwkgsltxfaOskthve Elif Other [employer] Other Start: 51-35-6404Wikczr outpatient visit 15 minutes Megan AsencioFPXavier Strickland OrthopedicsStart: 03-22-2021 End: 90-88-9446pyqjrfvzkoHjgcs Francheska Other [facility] Other Start: 52-64-4064Uhybum outpatient visit 25 minutes Roma Mccarthy [facility] [place]Start: 12-28-2020 End: 05-93-9164lbgwnztmumLrgyd Gircarmen Other [place] [employer] Other Start: 79-93-0253Tckbydlaj encounterDavid Shari [facility] [place]vueStart: 68-13-5836Oywveqfto encounterDavid FrancheskaG Family Medicine [place]vueStart: 42-42-1704Voyfiv outpatient visit 25 minutesDavicarl PritchardXavier [facility] [place] Procedures DateProcedureProcedure DetailPerforming ClinicianStart: 68-37-1600KC of chest without contrastDacarri Ritchiecarmen DO Work Phone: Start: 44-25-3284VGGSWYOKFUA SKIN LESIONNatalie A Felter TOWN PLANNER-MEDICAL ASSISTANT PER DIEM Work Phone: Start: 01-22-2024 End: 34-88-3556TqmdlhbqkgzKraquyqs Brown DPM Work Phone: Start: 65-52-0714XK of chest without contrastDO Roma Ritchiecarmen Work Phone: Start: 85-63-5865UO of abdomen and pelvis without contrastDO Roma Ritchiecarmen Work Phone: Start: 81-33-7251Rsbc energy X-ray absorptiometryDO Roma Ritchiecarmen Work Phone: Start: 27-71-4340Rhziy X-ray of right shoulderDO Roma Ritchiecarmen Work Phone: Start: 01-19-2023 End: 33-18-2524Nxrmjvqjf mammography of bilateral breastsDO Roma Ritchiecarmen Work Phone: Start: 78-73-2363Vizeb X-ray of right hipDO Roma Pritchard Work Phone: Start: 00-19-3834Frvin replacement of right hip joint DO Roma Pritchard Work Phone: Start: 07-02-1936Embxj X-ray of right hipDO Roma Pritchard Work Phone: Start: 08-44-7187Ahwiz X-ray of right hipDO Rmoa Pritchard Work Phone: Start: 42-00-7612Xzekp Stefan Pritchard Work Phone: Start: 62-26-3452Hcocc X-ray of right hipDO Roma Pritchard Work Phone: Start: 14-87-7207Nhdaplqlx mammography of bilateral breastsDO Roma Pritchard Work Phone: Start: 46-98-0438BX of chest without contrastDO Roma Pritchard Work Phone: Breast surgery (qualifier value)MARIANA DUONG ColonoscopyJENNIFER RITCHIE H/O: artificial jointAftercare following joint replacement surgeryDO Roma Pritchard Work Phone: Insertion of hip prosthesisJENNIFER RITCHIE Ligation of fallopian tubeJENNIFER RITCHIE Urine Stfean Pritchard Work Phone: Plan of Treatment DateCare ActivityDetailAuthorStart: 06-05-2025 End: 60-17-4253Kepqbwe encounter procedureNOMS SWS DERMStart: 01-21-2025 Screening for malignant neoplasm of breastMammogramNOMS HealthcareStart: 01-10-2025 End: 07-12-0714Npusmro encounter procedureNOMS SWS OBStart: 61-50-4140Gxvnusxyv vaccinationInfluenza Vaccine (#1)[facility]OMS HealthcareStart: 10-20-2024 End: 09-23-4866Zgclgln encounter lckqizcwp92/28/2025 4:10 PM EDT Procedure Visit [facility] [address] [facility] [address] [place] [address] Juan Yates DPM [address] [address] Pain due to onychomycosis of toenails of both feet (Primary Dx); Left Achilles tendinitis; Contracture of left ankleNOMS CI PODIATRYComment on above:Pain due to onychomycosis of toenails of both feet (Primary Dx); Left Achilles tendinitis; Contracture of left ankleStart: 10-13-2024 End: 93-61-2961Ehxpgqp encounter /21/2025 8:40 AM EDT Procedure Visit [facility] [address] [address] Juan Yates DPM [address] [address] [facility] CI PODIATRYStart: 08-04-2024 End: 72-92-9615Sddmqdz encounter procedureNOMS CI PODIATRYComment on above:Pain due to onychomycosis of toenails of both feet (Primary Dx); Left Achilles tendinitis; Contracture of left ankleStart: 05-19-2024 End: 47-91-2328Rninana encounter wuugqjzuz41/27/2025 10:50 AM EDT Procedure Visit [facility] [address] [address] Juan Yates DPM [address] [address] [facility] CI PODIATRYStart: 05-12-2024 End: 96-96-2336Mqoknfn encounter hlpritevk62/20/2025 10:50 AM EDT Procedure Visit [facility] [address] [address] Juan Yates DPM [address] [address] [facility] CI PODIATRYStart: 05-05-2024 End: 81-91-9253Vwlvzby encounter vspglqbym88/13/2025 8:30 AM EDT Office Visit [facility] [address] [place] [address] Lula Zamorano APRN-MEDICAL ASSISTANT PER DIEM [address] [place] [address] [facility] DERMStart: 02-25-2024 End: 84-26-1352Wxvfgxn encounter procedureNOMS CI PODIATRYComment on above:Left Achilles tendinitis (Primary Dx); Contracture of left ankle; Pain due to onychomycosis of toenails of both feetStart: 02-11-2024 End: 13-09-0103Jpawjdh encounter /19/2024 1:30 PM EST Office Visit [facility] [address] [facility] [address] [place] [address] Juan Yates DPM [address] [address] Left Achilles tendinitis (Primary Dx); Contracture of left ankleNOMS CI PODIATRYComment on above:Left Achilles tendinitis (Primary Dx); Contracture of left ankleStart: 01-28-2024 End: 33-55-1352Demgbvx encounter yfzianttc57/05/2024 11:50 AM EST Office Visit [facility] [address] [facility] [address] [place] [address] Juan Yates DPM [address] [address] [facility] CI PODIATRYStart: 01-21-2024 End: 06-95-5020GBC Breast - bilateral screeningBilateral screening mammogram with tomosynthesis Imaging Routine Other screening mammogram Expected: 01/21/2024, Expires: 03/07/2025[facility] Work Phone: comment on above:Expected: 01/21/2024, Expires: 03/07/2025Start: 56-72-5101Gbrfzchmo for malignant neoplasm of breastMammogram NOM HealthcareStart: 01-07-2024 End: 47-20-7258Vfpyash encounter jlodqwlrk52/14/2024 10:30 AM EST Office Visit [facility] OB [address] [place] [address] Orlando Vicente MD [address] [facility] [address] [place] [address] [facility]Start: 12-31-2023 End: 99-00-9793Rnfcjva encounter procedureNOMS CI PODIATRYComment on above:Left Achilles tendinitis (Primary Dx); Contracture of left ankleStart: 12-17-2023 End: 47-95-3855Apqycfp encounter /24/2024 10:10 AM EDT Procedure Visit [facility] [address] [facility] [address] [place] [address] Juan Yates DPM [address] [facility] [address] [place] [address] Left Achilles tendinitis (Primary Dx); Contracture of left ankle; Pain due to onychomycosis of toenails of both feet N[facility] CI PODIATRYComment on above:Left Achilles tendinitis (Primary Dx); Contracture of left ankle; Pain due to onychomycosis of toenails of both feetStart: 91-46-1784Mtxppzryx vaccinationInfluenza Vaccine (#1)[facility] HealthcareStart: 59-35-3526HfmswyrvwCommunity Memorial Hospital CenterStart: 00-99-0957WfnoezcafCommunity Memorial Hospital CenterStart: 11-04-2022 End: 28-77-2409XcfnncpquCommunity Memorial Hospital CenterStart: 73-83-2725YpjyqhqpxCommunity Memorial Hospital CenterStart: 39-25-7820HmdluuydiCommunity Memorial Hospital CenterStart: 06-56-1502Ibvehmbby for malignant neoplasm of colonNOMS HealthcareStart: 90-02-3260Wxjvbjcde for malignant neoplasm of lungLung Cancer Screening Shared Decision MakingNOCox NorthBacteria identified in Urine by CultureKettering Health TroyComprehenunc health [facility] metabolic 1999 panel - Serum or Plasma [facility] TroyComprelos [facility] metabolic 1999 panel - Serum or PlasmaKettering Health TroyComprelos [facility] metabolic 1999 panel - Serum or [facility] WO [facility] Chest WO contrastKettering Health Troy Glucose measurement estimated from glycated hemoglobinKettering Health TroyGlucose measurement estimated from glycated hemoglobinKettering Health TroyGlucose measurement estimated from glycated hemoglobinKettering Health TroyGlucose measurement estimated from glycated hemoglobin [facility] TroyGlucose measurement estimated from glycated hemoglobinKettering Health TroyHemoglobin A1c/Hemoglobin.total in BloodKettering Health TroyHemoglobin A1c/Hemoglobin.total in Blood [facility] TroyHemoglobin A1c/Hemoglobin.total in Blood [facility] Immunizations Immunization DateImmunizationNotesCare DxmpabgqPaxoaznz50-85-7110qtuvznnrb, high dose seasonal, preservative-freeDO Roma Pritchard Work Phone: [facility]09-23-2024influenza virus vaccine, unspecified formulationNicizabellaas Brown DPM Work Phone: [facility] Sports MedicineHhyinocrhg45-92-7409yklgzjsbn virus vaccine, unspecified formulationJENNIFER RITCHIE [facility]10-31-2023influenza, unspecified formulationJENNIFER RITCHIE [facility]10-12-2023Flu Shot - Documentation Purposes OnlyDacarri Pritchard Other [facility]04-21-2023Prevnar 20 Roma Pritchard Other [facility]10-01-2022COVID-19 mRNA Bivalent Booster (Pfizer)DO Roma Pritchard Work Phone: [facility]09-28-2022influenza, seasonal, injectableDavid Gircarmen Other [facility]09-28-2022Fluzone QIV High-Dose 65YR+DO Roma Pritchard Work Phone: [facility]09-28-2022influenza virus vaccine, unspecified formulationJENNIFER RITCHIE [facility]10-20-2021COVID-19 Vaccine Pfizer - Documentation Purposes OnlyDavid Francheska Other [facility]10-12-2021influenza, seasonal, injectableDavid Girvin Other [facility]09-15-2021influenza virus vaccine, unspecified formulationJENNAMARILYS RITCHIE [facility]09-15-2021influenza, injectable, quadrivalent, preservative NormO Roma Pritchard Work Phone: [phone]05-19-2021Kenalog -40 mgDavicarl Pritchard Other [place] [employer] Other [id number]-79 Vaccine Pfizer - Documentation Purposes OnlyDavid Francheska Other [facility]03-24-2021COVID-19 Vaccine Pfizer - Documentation Purposes OnlyDavid Francheska Other [facility]03-20-2021COVID-19 mRNA, Comirnaty (Pfizer)DO Roma Pritchard Work Phone: [facility]03-09-2021COVID-19 Vaccine Pfizer - Documentation Purposes OnlyDavid Francheska Other [facility]03-03-2021SARS-CoV-2 (COVID-19) mRNA BNT-162b2 vaxJENNIFER RITCHIE [facility] [place] 744850-16-2020influenza, seasonal, injectableDavid Girvin Other [facility]10-16-2020influenza virus vaccine, unspecified formulationJENNIFER RITCHIE [facility] [place] 744850-16-2020influenza, injectable, quadrivalent, preservative freeDO Roma Girvin Work Phone: [facility]10-01-2020influenza virus vaccine, unspecified formulationJENNIFER RITCHIE [facility]ue11-20-2019Kenalog -40 mgDavid Girvin Other [place] [employer] Other [id number] vaccine recombinantDavid Girvin Other [facility]09-08-2018zoster vaccine recombinantDavid Girvin Other [facility]09-08-2018tetanus toxoid, reduced diphtheria toxoid, and acellular pertussis vaccine, adsorbedDavid Girvin Other [facility]10-05-2017zoster vaccine, liveDavid Girvin Other [facility]09-29-2017tetanus toxoid, reduced diphtheria toxoid, and acellular pertussis vaccine, adsorbedDavid Girvin Other [facility] Payers DatePayer CategoryPayerPolicy [id number] [id number] 2022MedicareMEDICARE [id number] Hospital 1..840.845551.1.13.693.2.7.9.846928.684614.14078-76-2751PcbdUnm Cancer Center [id number] 2.9.785480.871519 [id number] 2..1.[id number] 2..1.387226.3.57[id number] 2..1.234050.3.579.2.30488-58-7805Drapmee8506630 2..1.891373.3.579.2.91617-15-0776Bwfcocu2750412 2.16.840.1.124750.3.57[id number] 2.16.840.1.638670.3.57[id number] 2.16840.1.840134.3.579.2.80108-87-0504Wgltelc6259563 2.16840.1.132251.3.579.2.78020-12-4736Vzanuyh8646772 2.16840.1.750554.3.579.2.51913-41-4114Aqaiecg1222306 2.840.1.513477.3.57[id number] 2.840.1.388152.3.579.2.4[id number] 2.840.1.846390.3.579.2.693650-40-0594Nxfvvpm6540737 2.840.1.066546.3.579.2.862029-05-5252Cntpypz2557770 2.840.1.358899.3.579.2.552042-28-8539Sqdflrq1157970 2.840.1.768863.3.579.[id number] 2.840.1.717363.3.579.2.354176-41-0232Otghiyv4119292 2.840.1.884705.3.579.2.830066-21-8578Yoifrbg4639524 2.16840.1.207082.3.579.2.820073-54-2846Vukxlwk2341906 2.16840.1.313179.3.57[id number] 2.16.840.1.746483.3.579.2.38640-52-1747Uvrggvv59424845 2.16.840.1.909559.3.579.2.199Hcpednm90085160 2.16.840.1.827789.3.579.2.531 [id number] 2.16.840.1.6[id number] 2.16.840.1.930496.3.579.2.847Fuaqtue72046649 2.16.840.1.603456.3.579.2.531 Social History DateTypeDetailFacilityUnknown if ever smokedNosaint john's breech [facility] [employer] Other Start: 01-01-2023 End: 29-74-3815Mva Assigned At [facility] Hospitaltart: 12-26-2019 End: 83-87-4057Yczyrqm smoking status NHISEx-smoker (finding)[facility] Centertart: 85-94-6630Rgg Assigned At [facility] HospitalTobacco smoking statusNeverExec[facility] SanduskyStart: 03-16-1969 End: 30-17-0047Fiqccei of tobacco useCurrent smokerNOMS HealthcareStart: 03-16-1969 End: 12-67-2706Cpdmbdw of tobacco useCigarette SmokerNOMS HealthcareStart: 01-01-2023 End: 95-51-7912Dwdtxmyqxa smoked current (pack per day) - Ssluwvzm3QQIX HealthcareHistory of tobacco usePassive smokerNOMS HealthcareStart: 10-01-2023 Tobacco use and exposureSmokeless tobacco non-userNOMS HealthcareStart: 10-01-2023 End: 48-81-1048Ibbqxsuye beverage intakeCurrent drinker of alcohol (finding)[facility] HealthcareStart: 22-66-9871Rtvtbks Commentmaybe one glass a month,,,, caffeine intake: 1-2 cups per day coffeeNOMS HealthcareStart: 08-65-1666Ypehro identity Identifies as female gender (finding)[facility] HealthcareStart: 01-14-2024 End: 26-73-3743QxbKllulh (finding)[facility] Medical Equipment Procedure CodeEquipment CodeEquipment Original TextEquipment IdentifierDates Arthroplasty, hip, total, anterior approachAcetabular shell ()[id number] FDAStart: 44-90-3633Ktopluefahqx, hip, total, anterior approachCeramic femoral head prosthesis ()[id number] FDAStart: 41-28-0425Akrpcnqemgcc, hip, total, anterior approachCoated hip femur prosthesis, modular ()[id number] FDAStart: 44-22-9232Ktacznfidflv, hip, total, anterior approachNon-constrained polyethylene acetabular liner ()[id number] FDAStart: 11-04-2022 Goals DatePatient GoalDesired Activity/State Functional Status KhkkGsmytlvoyuFxvqzhRksaqqle15-46-9841Dfbulollhc StatusN/AExec[facility]04-03-2024Functional StatusN/A[facility] [place] 744851-14-2023Functional StatusN/A [facility] Clinical Notes 12-18-2020 to 10-20-2024 Note Date & FggzCrkrNgeonfek57-14-8729 Radiology Diagnostic study noteFISH[facility] Main [place] [id number] CT Scan Report Signed Patient: Teagan Gonsales MR#: [id number] : 1955 Acct:[id number] Age/Sex: 69 / F ADM Date: 5 Loc: CT Room: Type: REG CLI Attending Dr: Roma Pritchard DO Copies to: Roma Pritchard DO~ Ordering Provider: Roma Pritchard DO Date of Service: 10/20/24 CT/CT chest wo con: R91.1 - Solitary pulmonary nodule CT CHEST WITHOUT IV CONTRAST: CLINICAL HISTORY: Pulmonary nodule follow-up COMPARISON: CT chest 10/22/2023 and 01/11/2022 TECHNIQUE: Spiral images were obtained through the chest without IV contrast. This CT exam was performed using one or more following dose reduction techniques: Automated exposure control, adjustment of the mA and/or kV accordingto patient size, or use of iterative reconstruction technique. FINDINGS: Mediastinum:Thoracic aorta appears normal in caliber. Pulmonary trunk appears nondilated. No pericardial effusion or lymphadenopathy. The esophagus is grossly unremarkable. Lungs:Mild lung scarring. No consolidation pneumothorax or pleural effusion. Stable areas of somewhat nodular groundglass is seen involving the right lung. No suspicious pulmonary nodule is seen on today's study. Abd:No acute process. Hepatic steatosis. Soft tissues/Bones: Soft tissues demonstrate no acute process. Osseous structures demonstrate degenerative change. CT/CT chest wo con IMPRESSION: Stable areas of somewhat nodular groundglass involving the right lung since uggesting a benignprocess. No suspicious pulmonary nodule is seen on today's study. Impression dictated by: Martin Ruano Jr., D.O. 10/20/2024 9:35 AM Dictation Location: [place] [address] Transcribed By: [facility] 10/20/[address] Dictated By: Martin Ruano Jr, DO 10/20/[address] Signed By: 10/20/24 0935 [facility]08-25-2025 Evaluation note* Author Roma Pritchard [facility] TroyAuthoPiedmont [facility] 2024 11:45amThe above note written by ___Elizabeth Tolbert____ acting as human recorder, note dictated by Dr. Stuart .I performed the above HPI, ROS, and Examination. I formulated and dictated the treatment plan and was present for entire encounter. Roma Pritchard D.O. [facility] Work Phone: 1(438) 778-980906-12-2025 History of Present illness Narrative* Juan Yates DPM - 08/04/2024 8:40 AM EDT Patient: Teagan Gonsales : 1955 PCP: Roma Pritchard MD SUBJECTIVE Patient presents today for follow up of left Achilles tendinitis. She has tried different shoes andheel lifts as well as ice and PT Patient rates pain a 3 /10. Patient has been taking anti-inflammatories and physical therapy at [facility] with negative improvement. Patient presents today with a CC of elongated, thick nails. Pt states nails have been elongated and thick for many years and cause pain with ambulation in shoegear. Pt has tried previous treatment with minimal relief. Pt presents today for nail care and treatment. Allergies: No Known Allergies Past Medical History: Past Medical History: Diagnosis Date Fibrocystic breast Hyperlipidemia (CMS/HCC) Hypertension (CMS/HCC) Medications: Current Outpatient Medications: ALPRAZolam (Xanax) 0.5 MG tablet, Take 0.5 mg by mouth in the morning and 0.5 mg before bedtime., Disp: , Rfl: ascorbic acid (Vitamin C) 500 MG tablet, Take 500 mg by mouth., Disp: , Rfl: atorvastatin (Lipitor) 20 MG tablet, Take 20 mg by mouth in the morning., Disp: , Rfl: azelaic acid (Finacea) 15 % gel, Apply (1g) thin layer to the face, once daily, 30 day supply, Disp: 50 g, Rfl: 11 Calcium Carbonate-Vitamin D 600-3.125 MG-MCG tablet, Take 1 tablet by mouth., Disp: , Rfl: cholecalciferol (Vitamin D-3) 50 MCG (1999 UT) capsule, Take 1 capsule by mouth [...] at the same time., Disp: , Rfl: hydrocortisone 2.5 % cream, Apply (1g) thin layer to affected areas bid prn for flares, Disp: 60 g,Rfl: 11 losartan (Cozaar) 100 MG tablet, TAKE 1 TABLET BY MOUTH EVERY DAY for 90 days, Disp: , Rfl: meloxicam (Mobic) 15 MG tablet, Take 15 mg by mouth Daily, Disp: , Rfl: Methylcobalamin 1 MG chewable tablet, .COMPLEX, Disp: , Rfl: methylPREDNISolone (Medrol Dospak) 4 MG tablets, Follow schedule on MEDROL PACK package instructions to be used as directed, Disp: 21 tablet, Rfl: 0 Social History: Social History Socioeconomic History Marital [...] date: 03/16/1969 Quit date: 10/14/2016 Years since quittin.7 Passive exposure: Past Smokeless tobacco: Never Vaping [...] Physical Activity: Sufficiently Active (02/11/2023) [facility] Vital Sign Days of Exercise per [...] feet ORTHO: Positive pain on palpation to toenails of the left 1,2,3,4,5 toes and right 1,2,3,4,5 toes positive pain on palpation to the left posterior calcaneus near the Achilles tendon insertion with negative palpable [place] Contracture of ankle at tibiotalar joint to bilateral lower extremities ASSESSMENT 1. Pain due to onychomycosis of toenails of both feet 2. Left Achilles tendinitis 3. Contracture of left ankle PLAN Patient to continue with oral anti - inflammatories as needed for pain and recommended OTC medications such as tylenol or Ibuprofen Patient is to continue with stretching excercizes daily with patient to continue with night stretching splint or manual stretching. Recommended to apply ice to affected areas for 20 minutes, twice daily. Ice should not be applied directly to skin. Discussed proper foot care with patient today. Debride nails in length and thickness digits 1 through 10 Discussed conservative and surgical treatment options for patient today including postoperative time frame and surgical procedure in detail. Patient may continue with conservative treatments including cfny-giu-esuqudf anti- inflammatories and other treatments suggested today. Patient may want to be s cheduled for surgical intervention in the near future. Discussed possible Tenex procedure Juan Yates DPM documented in this encounterFreeman Orthopaedics & Sports [id number] History of Present illness Narrative* Juan Yates DPM - 05/19/2024 10:50 AM EDT Patient: Teagan Gonsales : 1955 PCP: Roma Pritchard MD SUBJECTIVE Patient presents today for follow up of left Achilles tendinitis. She has tried different shoes andheel lifts as well as ice and Patient rates pain a /10. Patient has been taking anti-inflammatories and physical therapy at [facility] with Positive improvement Patient presents today with a CC of elongated, thick nails. Pt states nails have been elongated and thick for many years and cause pain with ambulation in shoegear. Pt has tried previous treatment with minimal relief. Pt presents today for nail care and treatment. Allergies: No Known Allergies Past Medical History: Past Medical History: Diagnosis Date Fibrocystic breast Hyperlipidemia (CMS/HCC) Hypertension (CMS/HCC) Medications: Current Outpatient Medications: ALPRAZolam (Xanax) 0.5 MG tablet, Take 0.5 mg by mouth in the morning and 0.5 mg before bedtime., Disp: , Rfl: ascorbic acid (Vitamin C) 500 MG tablet, Take 500 mg by mouth., Disp: , Rfl: atorvastatin (Lipitor) 20 MG tablet, Take 20 mg by mouth in the morning., Disp: , Rfl: azelaic acid (Finacea) 15 % gel, Apply (1g) thin layer to the face, [...] at the same time., Disp: , Rfl: hydrocortisone 2.5 % cream, Apply (1g) thin layer to affected areas bid prn for flares, Disp: 60 g,Rfl: 11 losartan (Cozaar) 100 MG tablet, TAKE 1 TABLET BY MOUTH EVERY DAY for 90 days, Disp: , Rfl: meloxicam (Mobic) 15 MG tablet, Take 15 mg by mouth Daily, Disp: , Rfl: Methylcobalamin 1 MG chewable tablet, .COMPLEX, Disp: , Rfl: methylPREDNISolone (Medrol Dospak) 4 MG tablets, Follow schedule on MEDROL PACK package instructions to be used as directed, Disp: 21 tablet, Rfl: 0 Social History: Social History Socioeconomic History Marital [...] date: 03/16/1969 Quit date: 10/14/2016 Years since quittin.5 Passive exposure: Past Smokeless tobacco: Never Vaping [...] Physical Activity: Sufficiently Active (02/11/2023) [facility] from [facility] Exercise Vital Sign Days [...] feet ORTHO: Positive pain on palpation to toenails of the left 1,2,3,4,5 toes and right 1,2,3,4,5 toes Minimal to no pain on palpation to the left posterior calcaneus near the Achilles tendon insertion with negative palpable [place] Contracture of ankle at tibiotalar joint to bilateral lower extremities ASSESSMENT 1. Left Achilles tendinitis 2. Contracture of left ankle 3. Pain due to onychomycosis of toenails of both feet PLAN Patient to continue with oral anti - inflammatories as needed for pain and recommended OTC medications such as tylenol or Ibuprofen Patient to finish Pt Patient is to continue with stretching excercizes daily with patient to continue with night stretching splint or manual stretching. Recommended to apply ice to affected areas for 20 minutes, twice daily. Ice should not be applied directly to skin. Discussed proper foot care with patient today. Debride nails in length and thickness digits 1 through 10 Juan Yates DPM documented in this encounterFreeman Orthopaedics & Sports [id number] History of Present illness Narrative* Lula Zamorano, MARCOS-MEDICAL ASSISTANT PER DIEM - 05/05/2024 8:30 AM EDT Skin Check Location: Patient requests a full body skin examination Dermatologic history: history of Actinic Keratosis Last visit: 1 year ago Established patient Follow up Diagnosis: Rosacea Location: face Last visit: 1 year ago Symptoms: red Status: no change Treatments tried and failed: Metronidazole 0.75% lotion Current treatment: Finacea 15% only uses as needed Lesions: Location: face/hands Duration: months Quality: denies pain, denies itch, denies bleeding Modifying factors: none Associated symptoms: red, rough Treatments: none All pertinent medical history, medications, and allergies were reviewed. General Exam: alert, oriented to person, place, and time, normal affect, well appearing Unaccompanied Scalp, Examined , exam limited by hair Right leg Examined Head, Face Examined Left leg Examined Neck Examined Right foot Examined Chest Examined Left foot Examined Back Examined Buttocks Examined Abdomen Examined Digits,nails: Examined Right arm Examined Left arm Examined Lymphatics: Not examined Hands Examined 1. Seborrheic keratosis Stuck on verrucous, salas-brown papules and plaques. Patient was counseled regarding these benign growths. Removal is normally not necessary, but they may be removed if they are symptomatic or for cosmetic reasons. 2. Lentigines Scattered salas macules in sun-exposed areas. The patient was informed that lentigines are benign pigmented lesions that occur on sun-exposed andsun-damaged skin. No treatment is necessary. Recommended regular use of broad spectrum sunscreen SPF 30 or higher 3. Actinic keratosis (15) Left Dorsal Hand (3), Left Forehead (2), Left Wrist - Posterior, Mid Forehead, Right Buccal Cheek, Right Dorsal Hand (4), Right Forehead (2), Right Parotid Area Erythematous scaly papules Patient was counseled regarding these sun-induced growths that can develop into squamous cell carcinoma if left untreated. Discussed treatment with cryotherapy. It was emphasized that any treated lesions that fail to resolve should be re- evaluated. Cryotherapy performed today; see procedure note Diagnosis: Actinic keratosis Indication: Precancerous Location: see skin exam Consent: Verbal consent was obtained and risks were discussed, including, but not limited to risks of scarring, darker or web production manager pigmentary changes, recurrence, incomplete removal and infection. Method: Liquid nitrogen was used to treat the lesion(s) with two 5-10 second freeze-thaw cycles. Number of lesions treated: 15 Post-procedure instructions: Instructions were given orally and in writing. The office will be contacted if the lesion fails to resolve despite treatment, or if a side effect develops such as abnormal crusting, scabbing, redness or tenderness Cryotherapy, skin lesion - Left Dorsal Hand (3), Left Forehead (2), Left Wrist - Posterior, Mid Forehead, Right Buccal Cheek, Right Dorsal Hand (4), Right Forehead (2), Right Parotid Area Related Medications fluorouracil (Efudex) 5 % cream Apply to directed areas on the face twice a day x 14 days. Dispense 30 day supply but only use for 14 days. 4. Melanocytic nevus of trunk Scattered benign appearing, regular brown to light brown melanocytic papules and macules with similar morphology Counseled regarding these benign growths. Rarely, a nevus can develop into malignant melanoma, so any changing nevi should be promptly re-evaluated. 5. Other rosacea Head - Anterior (Face) Mid face erythema with telangiectasias +/- scattered inflammatory papules/pustules. Improved since last visit Continue Finacea. Plan to follow up in 1 year Related Medications azelaic acid (Finacea) 15 % gel Apply (1g) thin layer to the face, once daily, 30 day supply 6. Other seborrheic dermatitis Head - Anterior (Face) Erythema and scale. Flaring today Discussed that seborrheic dermatitis is a chronic condition that can be controlled but not cured. Start hydrocortisone 2.5% use BID PRN when flared. Notify office if flaring despite treatment. hydrocortisone 2.5 % cream - Head - Anterior (Face) Apply (1g) thin layer to affected areas bid prn for flares Next Visit: 1 year skin check documented in this [facility]01-07-2025 Telephone encounter Note* Telephone Encounter - Mariana Cornell - 03/01/2024 9:05 AM EST PT would like new referral for physical therapy sent to [facility] for left achilles, she isdoing iontophoresis, she has a script for medication [facility] [id number] Miscellaneous Notes* Telephone Encounter - Mariana Cornell - 03/01/2024 9:05 AM EST PT would like new referral for physical therapy sent to [facility] for left achilles, she isdoing iontophoresis, she has a script for medication documented in this [facility]01-02-2025 Telephone encounter Note* Telephone Encounter - Juan Yates DPM - 02/25/2024 12:17 PM EST done [facility] [id number] Miscellaneous Notes* Telephone Encounter - Juan Yates DPM - 02/25/2024 12:17 PM EST done * Telephone Encounter - Mame Read MA - 02/25/2024 12:02 PM EST Dexamethasone is not available at [facility] but it I called and confirmed that it is available at [facility].Per Pharmacist, please send an electronic script. documented in this encounterFreeman Orthopaedics & Sports [id number] Telephone encounter Note* Telephone Encounter - Mame Read MA - 02/25/2024 12:02 PM EST Dexamethasone is not available at [facility] but it I called and confirmed that it is available at [facility].Per Pharmacist, please send an electronic script. [facility] [id number] History of Present illness Narrative* Juan Yates DPM - 02/25/2024 10:30 AM EST Patient: Teagan Gonsales : 1955 PCP: Roma Pritchard MD SUBJECTIVE Patient presents today for follow up of left Achilles tendinitis. She has tried different shoes andheel lifts as well as ice and Patient rates pain a 4-. Patient has been taking anti-inflammatories and physical therapy at [facility] with intermittent improvement Patient presents today with a CC of elongated, thick nails. Pt states nails have been elongated and thick for many years and cause pain with ambulation in shoegear. Pt has tried previous treatment with minimal relief. Pt presents today for nail care and treatment. Allergies: No Known Allergies Past Medical History: Past Medical History: Diagnosis Date Fibrocystic breast Hyperlipidemia ([facility]/HCC) Hypertension ([facility]) Medications: Current Outpatient Medications: ALPRAZolam (Xanax) 0.5 [...] DAY for 90 days, Disp: , Rfl: meloxicam (Mobic) 15 MG tablet, Take 15 mg by mouth Daily, Disp: , Rfl: Methylcobalamin 1 MG chewable tablet, .COMPLEX, Disp: , Rfl: methylPREDNISolone (Medrol Dospak) 4 MG tablets, Follow schedule on MEDROL PACK package instructions to be used as directed, Disp: 21 tablet, Rfl: 0 Social History: Social History Socioeconomic History Marital [...] date: 03/16/1969 Quit date: 10/14/2016 Years since quittin.3 Passive exposure: Past Smokeless tobacco: Never Vaping [...] Physical Activity: Sufficiently Active (02/11/2023) Received from [facility], [facility] Exercise Vital Sign Days [...] palpation to nails 1 through 10 Positive pain on palpation to the left posterior calcaneus near the Achilles tendon insertion with negative palpable [place] Contracture of ankle at tibiotalar joint to bilateral lower extremities ASSESSMENT 1. Left Achilles tendinitis 2. Contracture of left ankle 3. Pain due to onychomycosis of toenails of both feet PLAN Patient to continue with oral anti - inflammatories as needed for pain and recommended OTC medications such as tylenol or Ibuprofen Patient is to continue with stretching excercizes daily with patient to continue with night stretching splint or manual stretching. Recommended to apply ice to affected areas for 20 minutes, twice daily. Ice should not be applied directly to skin. Discussed proper foot care with patient today. Debride nails in length and thickness digits 1 through 10 Prescription today for dexamethasone to be applied via iontophoresis by physical therapy per request of physical therapy and patient with prescription sent to pharmacy Juan Yates DPM documented in this encounterFreeman Orthopaedics & Sports [id number] History of Present illness Narrative* Juan Yates DPM - 02/11/2024 1:30 PM EST Patient: Teagan Gonsales : 1955 PCP: Roma Pritchard MD SUBJECTIVE Patient presents today for follow up of left Achilles tendinitis. She has tried different shoes andheel lifts as well as ice and Patient rates pain a 2/10. Pt has recently taken a medrol pack with walking boot with physical therapy at [facility] with positive improvement Allergies: No Known Allergies Past Medical History: Past Medical History: Diagnosis Date Fibrocystic breast Hyperlipidemia (CMS/HCC) Hypertension (CMS/HCC) Medications: Current Outpatient Medications: ALPRAZolam (Xanax) 0.5 [...] DAY for 90 days, Disp: , Rfl: meloxicam (Mobic) 15 MG tablet, Take 15 mg by mouth Daily, Disp: , Rfl: Methylcobalamin 1 MG chewable tablet, .COMPLEX, Disp: , Rfl: methylPREDNISolone (Medrol Dospak) 4 MG tablets, Follow schedule on MEDROL PACK package instructions to be used as directed, Disp: 21 tablet, Rfl: 0 Social History: Social History Socioeconomic History Marital [...] date: 03/16/1969 Quit date: 10/14/2016 Years since quittin.3 Passive exposure: Past Smokeless tobacco: Never Vaping [...] Physical Activity: Sufficiently Active (02/11/2023) Received from [facility], [facility] Exercise Vital Sign Days [...] on palpation to nails 1 through 10 Diminished pain on palpation to the left posterior calcaneus near the Achilles tendon insertion with negative palpable [place] Contracture of ankle at tibiotalar joint to bilateral lower extremities ASSESSMENT 1. Left Achilles tendinitis 2. Contracture of left ankle PLAN Patient to continue with oral anti - inflammatories as needed for pain and recommended OTC medications such as tylenol or Ibuprofen Patient is to continue with stretching excercizes daily with patient to continue with night stretching splint or manual stretching. Recommended to apply ice to affected areas for 20 minutes, twice daily. Ice should not be applied directly to skin. Patient has finished physical therapy however physical therapist would like iontophoresis and will need steroid of choice in new prescription once patient cause for prescription for steroid as well as renew of Pt orders at [facility] Juan Yates DPM documented in this encounterFreeman Orthopaedics & Sports [id number] Evaluation note* Author Roma Pritchard [facility] TroyAuthoredNovember 2023 3:37pmI performed the above HPI, ROS, and Examination. I formulated and dictated the treatment plan and was present for entire encounter. Roma Pritchard D.O. [facility] Work Phone: [phone] 313-241011-21-2024 Hospital Discharge instructions Patient Education 01/14/2024 10:06:51 Kidney Stones, Ckgp-xk-Sqbp Kidney Stones Kidney stones are rock-like masses [...] pee. The stone usually leaves your body through your pee. A doctor may need to take out the stone. What are the causes? Kidney stones may be caused by: Too much calcium in the body. This may be caused by too much parathyroid hormone in the blood. Uric acid crystals in the bladder. The body makes uric acid when you eat certain foods. Narrowing of one or both of the ureters. A kidney blockage that you were born with. Past surgery on the kidney or the ureters. What increases the risk? You are more likely to develop this condition if: You have had a kidney stone in the past. Other people in your family have had kidney stones. You do not drink enough water. You eat a diet that is high in protein, salt (sodium), or sugar. You are very overweight (obese). What are the signs or symptoms? Symptoms of a kidney stone may include: Pain in the side of the belly, right below the ribs. Pain usually spreads to the groin. Needing to pee often or right away. Pain when peeing. Blood in your pee. Feeling like you may vomit (nauseous). Vomiting. Fever and chills. How is this treated? Treatment depends on the size, location, and makeup of the kidney stones. The stones will often pass out of the body when you pee. You may need to: Drink more fluid to help pass the stone. ?In some cases, you may be given fluids through an IV tube at the hospital. Take medicine for pain. Change your diet to help keep kidney stones from coming back. Sometimes, you may need: A procedure to break up kidney stones using a beam of light (laser) or shock waves. Surgery to remove the kidney stones. Follow these instructions at home: Medicines Take birf-hrp-vwgjcvt and prescription medicines only as told by your doctor. Ask your doctor if the medicine prescribed to you requires you to avoid driving or using machinery. Eating and drinking Drink enough fluid to keep your pee pale yellow. ?You may be told to drink at least 8 10 glasses of water each day. This will help you pass the stone. If told by your doctor, change your diet. You may be told to: ?Limit how much salt you eat. ?Eat more fruits and vegetables. ?Limit how much meat, poultry, fish, and eggs you eat. Follow instructions from your doctor about what you may eat and drink. General instructions Collect pee samples as told by your doctor. You may need to collect a pee sample: ?24 hours after a stone comes out. ?8 12 weeks after a stone comes out, and every 6 12 months after that. Strain your pee every time you pee. Use the strainer that your doctor recommends. Do not throw out the stone. Keep it so that it can be tested by your doctor. Keep all follow-up visits. You may need X-rays and ultrasounds to make sure the stone has come out. How is this prevented? To prevent another kidney stone: Drink enough fluid to keep your pee pale yellow. This is the best way to prevent kidney stones. Eat healthy foods. Avoid certain foods as told by your doctor. You may be told to eat less protein. Stay at a healthy weight. Where to find more information National Kidney Foundation (NKF): kidney.org Urology Care Foundation (UCF): urologyhealth.org Contact a doctor if: You have pain that gets worse or does not get better with medicine. Get help right away if: You have a fever or chills. You get very bad pain. You get new pain in your belly. You faint. You cannot pee. This information is not intended to replace advice given to you by your health care provider. Make sure you discuss any questions you have with your health care provider. Document Revised: 10/03/2022 Document Reviewed: 10/03/2022 [employer] Patient Education [address] Follow Up Care 01/06/2023 08:54:05 With:RITCHIE JONES, MARIANA Johnson, SHAWN Address: When:1 year [facility] Shieren 11-21-2024 NotePatient Education Urology Kidney Stones Kidney stones are rock-like masses that form inside of the kidneys. Kidneys are organs that make pee (urine). A kidney stone may move into other parts of the urinary tract, including: ??? The tubes that connect the kidneys to the bladder (ureters). ??? The bladder. ??? The tube that carries urine out of the body (urethra). Kidney stones can cause very bad pain and can block the flow of pee. The stone usually leaves your body through your pee. A doctor may need to take out the stone. What are the causes? Kidney stones may be caused by: ??? Too much calcium in the body. This may be caused by too much parathyroid hormone in the blood. ??? Uric acid crystals in the bladder. The body makes uric acid when you eat certain foods. ??? Narrowing of one or both of the ureters. ??? A kidney blockage that you were born with. ??? Past surgery on the kidney or the ureters. What increases the risk? You are more likely to develop this condition if: ??? You have had a kidney stone in the past. ??? Other people in your family have had kidney stones. ??? You do not drink enough water. ??? You eat a diet that is high in protein, salt (sodium), or sugar. ??? You are very overweight (obese). What are the signs or symptoms? Symptoms of a kidney stone may include: ??? Pain in the side of the belly, right below the ribs. Pain usually spreads to the groin. ??? Needing to pee often or right away. ??? Pain when peeing. ??? Blood in your pee. ??? Feeling like you may vomit (nauseous). ??? Vomiting. ??? Fever and chills. How is this treated? Treatment depends on the size, location, and makeup of the kidney stones. The stones will often pass out of the body when you pee. You may need to: ??? Drink more fluid to help pass the stone. ? In some cases, you may be given fluids through an IV tube at the hospital. ??? Take medicine for pain. ??? Change your diet to help keep kidney stones from coming back. Sometimes, you may need: ??? A procedure to break up kidney stones using a beam of light (laser) or shock waves. ??? Surgery to remove the kidney stones. Follow these instructions at home: Medicines ??? Take qlvy-aiv-vhtlxnm and prescription medicines only as told by your doctor. ??? Ask your doctor if the medicine prescribed to you requires you to avoid driving or using machinery. Eating and drinking ??? Drink enough fluid to keep your pee pale yellow. ? You may be told to drink at least 8?10 glasses of water each day. This will help you pass the stone. ??? If told by your doctor, change your diet. You may be told to: ? Limit how much salt you eat. ? Eat more fruits and vegetables. ? Limit how much meat, poultry, fish, and eggs you eat. ??? Follow instructions from your doctor about what you may eat and drink. General instructions ??? Collect pee samples as told by your doctor. You may need to collect a pee sample: ? 24 hours after a stone comes out. ? 8?12 weeks after a stone comes out, and every 6?12 months after that. ??? Strain your pee every time you pee. Use the strainer that your doctor recommends. ??? Do not throw out the stone. Keep it so that it can be tested by your doctor. ??? Keep all follow-up visits. You may need X-rays and ultrasounds to make sure the stone has come out. How is this prevented? To prevent another kidney stone: ??? Drink enough fluid to keep your pee pale yellow. This is the best way to prevent kidney stones. ??? Eat healthy foods. ??? Avoid certain foods as told by your doctor. You may be told to eat less protein. ??? Stay at a healthy weight. Where to find more information ??? National Kidney Foundation (NKF): kidney.org ??? Urology Care Foundation (UCF): urologyhealth.org Contact a doctor if: ??? You have pain that gets worse or does not get better with medicine. Get help right away if: ??? You have a fever or chills. ??? You get very bad pain. ??? You get new pain in your belly. ??? You faint. ??? You cannot pee. This information is not intended to replace advice given to you by your health care provider. Make sure you discuss any questions you have with your health care provider. Document Revised: 10/03/2022 Document Reviewed: 10/03/2022 [employer] Patient Education ? [address] 01-07-2024 History of Present illness Narrative* Orlando Vicente MD - 01/07/2024 10:30 AM EST Images from the original note were not included. Orlando Vicente MD Obstetrics and Gynecology Patient: Teagan Gonsales, : 1955 (68 y.o.) DOS 01/07/24 Exam Date: 01/07/2024 HPI: Pt was taking oxybutynin for OAB. She concluded it was not helping, and so she stopped taking it. She feels fine. She has nocturia 1-2x/night, but no incontinence. She seems to have reached a satisfactory balance. Visit Vitals BP 130/80 Wt 149 lb BMI 28.15 kg/m OB Status Postmenopausal Smoking Status Former BSA 1.71 m OB History Para Term AB Living 2 2 2 0 0 2 SAB IAB Ectopic Multiple Live Births 0 0 0 0 2 # Outcome Date GA Lbr Alexander/2nd Weight Sex Type Anes PTL Lv 2 Term 1 Term Obstetric Comments Pap: 01/15-Neg [place] Mammo: 01/19/23-Neg [place] Menopausal Medication and Allergies Medication Documentation Review Audit Reviewed by Michelle Trinidad MA (Real Estate Marketing Coordinator) on 01/07/24 at 1031 Medication Order Taking? Sig Documenting Provider Last Dose Status ALPRAZolam (Xanax) 0.5 MG tablet [id number] Take 0.5 mg by mouth in the morning and 0.5 mg before bedtime. Orlando Vicente MD Active ascorbic acid (Vitamin C) 500 MG tablet [id number] Take 500 mg by mouth. Orlando Vicente MD Active atorvastatin (Lipitor) 20 MG tablet [id number] Take 20 mg by mouth in the morning. Orlando Vicente MDActive azelaic acid (Finacea) 15 % gel [id number] Apply thin layer to the face, once daily, 30 day supply NAOMIE Diallo Active Calcium Carbonate-Vitamin D 600-3.125 MG-MCG tablet [id number] Take 1 tablet by mouth. Orlando Vicente MD Active cholecalciferol (Vitamin D-3) 50 MCG (1999) capsule [id number] Take 1 capsule by mouth in the morning and 1 capsule in the evening. Orlando Vicente MD Active diclofenac sodium 1 % gel [id number] Apply 1 application topically. Orlando Vicente MD Active ferrous sulfate 325 (65 Fe) MG tablet [id number] Take 1 tablet by mouth 5 days weekly as directed Indications: supplement Orlando Vicente MD Active fluorouracil (Efudex) 5 % cream [id number] Apply to directed areas on the face twice a day x 14 days.Dispense 30 day supply but only use for 14 days. NAOMIE Diallo Active hydroCHLOROthiazide (HYDRODiuril) 25 MG tablet [id number] 1 (one) time each day at the same time. Orlando Vicente MD Active losartan (Cozaar) 100 MG tablet [id number] TAKE 1 TABLET BY MOUTH EVERY DAY for 90 days Orlando Vicente MD Active meloxicam (Mobic) 15 MG tablet [id number] Take 15 mg by mouth Daily Orlando Vicente MD Active Methylcobalamin 1 MG chewable tablet [id number] Yes .COMPLEX Orlando Vicente MD Active methylPREDNISolone (Medrol Dospak) 4 MG tablets [id number] Follow schedule on MEDROL PACK package instructions to be used as directed Juan Yates DPM Active No Known Allergies Past Medical History: Diagnosis Date Fibrocystic breast Hyperlipidemia (CMS/HCC) Hypertension (CMS/HCC) Past Surgical History: Procedure Laterality Date BREAST BIOPSY CARPAL TUNNEL RELEASE EYE SURGERY Bilateral 2016 HIP SURGERY KIDNEY STONE SURGERY KNEE SURGERY Right LITHOTRIPSY REPLACEMENT TOTAL HIP LATERAL POSITION Right TONSILLECTOMY TUBAL LIGATION VAGINAL DELIVERY VAGINAL DELIVERY Physical Exam: Objective Physical Exam Constitutional: Appearance: Normal appearance. Genitourinary: Vulva normal. No vaginal discharge or bleeding. Mild vaginal atrophy present. Right Adnexa: not palpable. Left Adnexa: not palpable. Cervix is not nulliparous. Uterus is not enlarged or tender. Breasts: Right: Normal. Left: Normal. Abdominal: General: Abdomen is flat. Palpations: Abdomen is soft. Neurological: Mental Status: She is alert. Associated Treatments and Results - ICD-10-CM 1. OAB (overactive bladder) N32.81 2. Other screening mammogram Z12.31 Bilateral screening mammogram with tomosynthesis Cont as is. Assessment/Plan Orders Placed This Encounter Procedures Bilateral screening mammogram with tomosynthesis U/S and spot compression if indicated Standing Status: Future Standing Expiration Date: 03/07/2025 Order Specific Question: Reason for exam: Answer: screen documented in this encounterFreeman Orthopaedics & Sports [id number] History of Present illness Narrative* Juan Yates DPM - 12/31/2023 11:10 AM EST Patient: Teagan Gonsales : 1955 PCP: Roma Pritchard MD SUBJECTIVE Patient presents today for follow up of left Achilles tendinitis. She has tried different shoes andheel lifts as well as ice and Patient rates pain a 4/10. Pt has recently taken a medrol pack with walking boot with minimal improvement. Allergies: No Known Allergies Past Medical History: Past Medical History: Diagnosis Date Fibrocystic breast Hyperlipidemia (CMS/HCC) Hypertension (CMS/HCC) Medications: Current Outpatient Medications: ALPRAZolam (Xanax) 0.5 [...] DAY for 90 days, Disp: , Rfl: methylPREDNISolone (Medrol Dospak) 4 MG tablets, Follow schedule on MEDROL PACK package instructions to be used as directed, Disp: 21 tablet, Rfl: 0 Social History: Social History Socioeconomic History Marital [...] Physical Activity: Sufficiently Active (02/11/2023) Received from [facility], [facility] Exercise Vital Sign Days [...] calcaneus near the Achilles tendon insertion with negativepalpable [place] Contracture of ankle at tibiotalar joint to bilateral lower extremities ASSESSMENT 1. Left Achilles tendinitis 2. Contracture of left ankle PLAN Patient to continue with oral anti - inflammatories as needed for pain and recommended OTC medications such as tylenol or Ibuprofen Patient is to continue with stretching excercizes daily with patient to continue with night stretching splint or manual stretching. Recommended to apply ice to affected areas for 20 minutes, twice daily. Ice should not be applied directly to skin. Prescription today for physical therapy at [facility] with follow up in 1 month Juan Yates DPM documented in this encounterFreeman Orthopaedics & Sports [id number] History of Present illness Narrative* Juan Yates DPM - 12/17/2023 10:10 AM EDT Patient: Teagan Gonsales : 1955 PCP: Roma Pritchard MD SUBJECTIVE [...] Diagnosis Date Fibrocystic breast Hyperlipidemia (CMS/HCC) Hypertension (CMS/HCC) Medications: Current Outpatient Medications: ALPRAZolam (Xanax) 0.5 [...] , Rfl: cholecalciferol (Vitamin D-3) 50 MCG (1999 [place]) capsule, Take 1 capsule by mouth [...] Physical Activity: Sufficiently Active (02/11/2023) Received from [facility], [facility] Exercise Vital Sign Days [...] calcaneus near the Achilles tendon insertion with negativepalpable [place] Contracture of ankle at tibiotalar joint to [...] today Juan Yates DPM documented in this encounterFreeman Orthopaedics & Sports [id number] Evaluation note* Diagnosis Onset Date Resolution Status Admit Date Flu vaccine need noneactiveSeptember 2023 9:20am [facility] Work Phone: 1(230) 425-937108-13-2024 Evaluation note* Author Roma Pritchard [facility] 2023 9:54amThe above note written by ___Elizabeth Tolbert____ acting as human recorder, note dictated by Dr. Stuart .I performed the above HPI, ROS, and Examination. I formulated and dictated the treatment plan and was present for entire encounter. Roma Pritchard D.O. [facility] Work Phone: 1(491) 747-659105-14-2024 Evaluation note* Author Roma Pritchard [facility] 2023 10:30amThe above note written by ___Elizabeth Tolbert____ acting as human recorder, note dictated by Dr. Stuart .I performed the above HPI, ROS, and Examination. I formulated and dictated the treatment plan and was present for entire encounter. Roma Pritchard D.O. [facility] Work Phone: 1(501) 299-959904-03-2024 Hospital Discharge instructions Patient Education 05/27/2023 09:53:52 Kidney Stones, Nljl-zv-Gnez Kidney Stones Kidney stones are rock-like masses [...] Follow these instructions at home: Medicines Take bzfd-gae-mpgqelw and prescription medicines only as told by [...] provider. Document Revised: 10/14/2021 Document Reviewed: 10/14/2021 [employer] Patient Education [address] Follow Up Care 04/13/2023 08:56:26 With:MARIANA DUONG PA-C, URL Address: [address] [place] [address] [phone] When: Unknown Comments:f/u pending CT AP wo con results [facility] [place] 02-08-2024 Evaluation note* Encounter Date Diagnosis Assessment Notes Treatment Notes Treatment Clinical Notes Mar, Hyperlipidemia (ICD-10 - E78.5) Discussed cholesterol results with patient today. Total is 162. HDL is 83. LDL is 60. Triglyceridesare 95. VLDL is 19 which is very good. I would like her to continue with above medication and continue with what she is doing as far as her diet and staying active. Mar,Hyperglycemia (ICD-10 - R73.9)Discussed blood sugar results with patient today. Total is 96. HgA1C is 5.6. She is told that her blood sugar is doing well. I would like her to continue to monitor her intake of carbs and sugars. Continue to stay active. She is going to meet with a nutrition/set off press operator to discuss her diet more. Allquestions she has were answered. Cautioned her against eating too many carbs. Mar,Vitamin D deficiency (ICD-10 - E55.9)Her Vitamin D level is 30.6. She is taking Vitamin D3 once a day and a Vitamin 600+D3 daily. I did recommend she take two of the D3 daily. Mar,Hypertension (ICD-10 - I10)She presents with home blood pressure readings that [...] this medicine it went down. I did encourageher to avoid taking this medication if she does not need it as it can raise the blood pressure. Side effects/risks/benefits of Meloxicam were discussed. Mar,Sleep apnea (ICD-10 - G47.30)She does continue to use and benefit from her CPAP machine. We discussed that her CO2 level was elevated on her blood work at 33.1. We would expect someone that uses a CPAP machine to have an elevated CO2 level. This is not concerning, reassurance given. Mar,nxiety (ICD-10 - F41.9)She does continue to use and benefit from [...] current substance abuse treatments are being prescribed. Mar,GERD (gastroesophageal reflux disease) (ICD-10 - K21.9) Mar,nemia (ICD-10 - D64.9)Her HGB is 13.2. Iron is 77. Ferritin is 19.7. % saturation is 15.5. She is taking the Iron every other day and her Vitamin C five days a week. She can continue to take her medication as she has been. Mar,Vitamin B12 deficiency (ICD-10 - E53.8)She is taking her B12 Thursday through Thursday. Her Vitamin B12 level is 595. Folate is 15.8. 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 She is back to the gym and is exercising regularly. Mar,Shoulder pain, right (ICD-10 - M25.511)She had an injection in her right shoulder done by Dr. Shaffer. She voices that she finished PT yesterday and has exercises that she can do at home. She is exercising regularly at the gym and at home. Mar,Thyroid nodule (ICD-10 - E04.1)I did advise her that the thyroid ultrasound [...] is normal at this time at 1.73. Mar,ulmonary nodules (ICD-10 - R91.8)We discussed that her last CT of the chest was done 01/11/22 and should be repeated one year from now. Mar,Weight loss (ICD-10 - R63.4)She is keeping track of her food and has a food diary. She is exercising daily either at home or the gym. She is going to see a manager systems to see if she can learn how [...] was poor and he was in the [place]. She would prefer to stay around 141 pounds which is fine. She does resistance training, walks and is running on her treadmillnow. Mar,Kidney stone (ICD-10 - N20.0)She voices that she recently saw Mariana Duong PA-C at [facility] for evaluation and was told [...] is to ask Mariana Duong PA-C at [facility] if she should be taking a Calcium+D supplement or not. Mar,Sacroiliac strain (ICD-10 - S39.012A)She admits she was running on her treadmill this past weekend for three minutes on an incline of 5.I did advise her that where her pain [...] is not related to her kidney stone. Mar,Leg cramps (ICD-10 - R25.2)No sign of electrolyte deficiency on lab work. Recommend she drink plenty of water daily. Mar,Osteoporosis screening (ICD-10 - Z13.820)Will provide her with an order to have a DEXA scan done. Mar,bnormal findings on diagnostic imaging of musculoskeletal system (ICD-10 - R93.7) Mar,OtherI did sign her form allowing her to swim in the pool at physical therapy. She voices that she feels hungry all the time. I did recommend that she eat plenty of protein whichis what the body needs. This should allow her to feel full and her body can use the fuel. She should look into the Mediterranean Diet. [facility] Other 01-15-2024 Evaluation note* Encounter Date Diagnosis Assessment Notes Treatment Notes Treatment Clinical Notes Feb, Obstructive sleep apnea (ICD-10 - G47.33) Fortunately, the patient is using and benefiting from treatment. Download was reviewed with patient, Current pressure is controlling apnea well, And we will make no changes at this time. A prescription was sent to the [facility] for new supplies throughout the year. She was encouraged to continue to use her machine nightly, throughout the entire night as this does provide clinical benefit. She will follow-up in the sleep clinic in 1 year or sooner if problems. Feb,MI 26.0-26.9,adult (ICD-10 - Z68.26)She is encouraged to continue efforts at progressive weight loss. Decreasing body weight can have substantial impact on sleep apnea and overall general health. Feb,OtherCall if any questions or problems. Patient is advised to work on healthy diet choices and appropriate servings, weight control, regular exercise as directed, and reduce fat intake. Use machine regularly, and keep up with mask changes as needed. Call if problems with mask toleration, increased sleepiness, or poor response to treatment. . [facility] Other 01-10-2024 Evaluation note* Encounter Date Diagnosis Assessment Notes Treatment Notes Treatment Clinical Notes Feb, Rotator cuff syndrome, right (IC D-10 - M75.101) [facility] Other 01-09-2024 Evaluation note* Encounter Date Diagnosis Assessment Notes Treatment Notes Treatment Clinical Notes Feb, Rotator cuff syndrome, right (IC D-10 - M75.101) Images were reviewed with the [...] will consider obtaining an MRI as well aspossible surgery. Physical therapy was emphasized to the [...] follow up 6 weeks after physical therapy Feb,iceps tendonitis, right (ICD-10 - M75.21) Feb,cute pain of right shoulder (ICD-10 - M25.511) [facility] Other 11-14-2023 Hospital Discharge instructions Patient Education [...] include: ?8 oz (237 mL) of milk, vbapqbe-rinitfmhdrwf-ojqmp milk, and calcium- fortifiedfruit juice. Calcium-fortified means [...] ?Spinach (cooked), rhubarb, beets, sweet potatoes, and Guyanese chard. ?Peanuts. ?Potato chips, kyrgyz fries, and baked potatoes with skin on. ?Nuts and nut products. ?Chocolate. If you regularly take a diuretic medicine, make sure to eat at least 1 or 2 servings of fruits or vegetables that are high in potassium each day. These include: ?Avocado. ?Banana. ?[place], prune, carrot, or tomato juice. ?Baked potato. [...] magnesium, fish oil, or vitamin B6. Take ddjb-hqe-zyxfnem and prescription medicines only as told by [...] Casseroles. Pizza. Lasagna. Frozen meals. Potato chips. British fries. The items listed above may not [...] provider. Document Revised: 10/21/2021 Document Reviewed: 10/21/2021 [employer] Patient Education [address] Follow Up Care 01/02/2022 10:12:49 With:MARIANA DUONG PA-C, URL Address: [address] [place] [address] When: Unknown [facility] 11-08-2023 Evaluation note* Encounter Date Diagnosis Assessment Notes Treatment Notes Treatment Clinical Notes Dec, Anxiety (ICD-10 - F41.9) [facility] 11-08-2023 Evaluation note* Encounter Date Diagnosis Assessment Notes Treatment Notes Treatment Clinical Notes Dec, Vitamin D deficiency (ICD-10 - E 55.9) Continue with above medication daily as directed. Vitamin D level was 38.1. Dec,nemia (ICD-10 - D64.9)She tried to donate blood a couple of weeks ago but her HGB was low. She is taking the Iron daily and her HGB is 12.4. Iron is 51. % saturation is 11.6. Ferritin is 31.9. I did recommend that she decrease her iron to every other day but continue with the Vitamin C daily to help her body absorb the iron better. Dec,Vitamin B12 deficiency (ICD-10 - E53.8)Her B12 is 351. Folate is 10.7. She has not been taking any B12 so I would like her to restart the B12 Thursday through Thursday. Dec,Hypertension (ICD-10 - I10)Her blood pressure today was 117/98. I did ask her to monitor her blood pressure daily and call me with several readings. I would like to see her diastolic reading lower. She will call later this week. Pt called back shortly after her visit with a blood pressure reading of 119/76 which is controlled. Dec,nxiety (ICD-10 - F41.9)She voices that she is rarely using the [...] current substance abuse treatments are being prescribed. Dec,OtherSunshine has returned to working out at the gym and walks on her treadmill at home for 35 minutes every other day. She voices that Dr. Herman does not need to see her back for one year. 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 Continue taking nxxd-ydz-uavmlbo anti-inflammatories as needed for assistance with swelling and pain associated with the operative extremity. Follow-up at 1 year postop for repeat examination and repeat x-rays. Patient will call with any questions or concerns. 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 This includes wearing their JEFFERY hose on the operative extremity for another two weeks. Follow-up in 4 weeks for repeat examination and x-rays of the right hip. [facility] Other 09-01-2023 Evaluation note* Encounter Date Diagnosis Assessment Notes Treatment Notes Treatment Clinical Notes Oct, Other Prolonged Services 1. H and P date: 10/23/2022 2. Diagnosis: Right hip primary osteoarthritis 3. Counseling: Patient received counseling at their history and physical. 4. Coordination of care: The patient was discussed at today's total joints meeting with anesthesia,OR staff, and implant reps in an effort to coordinate the patient's care during the perioperative period. The anesthesiologist was involved in discussions regarding the patient's pain management suchas regional blocks, anesthesia plans the day of surgery such as general versus spinal, as well as afinal review of lab work to ensure the patient could proceed with surgery safely. The major gifts manager was vital for surgery timing and scheduling purposes. The implant rep was also available for necessarydiscussions regarding preoperative templates that were created on preoperative x-rays to ensure the appropriate implants and sizes of implants would be available the day of surgery. The patient's discharge plan was also discussed and the final decision was confirmed. 5. Medication Changes: None 6. Lab Tests: The patient's screening tests including albumin levels, vitamin D levels, hemoglobin,hemoglobin A1c, cotinine serum level, and MRSA nasal [...] plans. Prolonged services time spent: 31 minutes [facility] Other 08-31-2023 Evaluation note* Encounter Date Diagnosis Assessment Notes Treatment Notes Treatment Clinical Notes Sep, Primary osteoarthritis of right hip (ICD-10 - M16.11) Sep,Other1. Right ABBY Home Medications - DVT prophylaxis: Aspirin - NSAID: Celebrex - Disposition: Same-day discharge-her and her daughters will be there to help her postop Joints Meeting Checklist - Pharmacy: [facility] to bed - Approach/Technique: anterior, [place] bed - Implants: Avenir Complete/G7; - Anesthesia: general versus spinal - Blocks: Fascia iliaca - Preop Antibiotics: Ancef - TXA: yes-systemic - Positioning/OR Bed: supine on [place] bed - Intraop X-ray: yes - Maxwell: no - Tourniquet: no - Antibiotic powder: yes-2 grams of vanc - Antibiotic cement: no - Dressing: Zipline and Aquacel The patient has tried and failed all conservative treatment options to include: activity modification, physical therapy, oral anti-inflammatories, and intra- articular steroid injections. We will moveforward with the definitive treatment option and schedule [...] elected to proceed with the above surgery. [facility] Other 08-08-2023 Evaluation note* Encounter Date Diagnosis Assessment Notes Treatment Notes Treatment Clinical Notes Sep, Anxiety (ICD-10 - F41.9) [facility] 07-28-2023 Evaluation note* Encounter Date Diagnosis Assessment Notes Treatment Notes Treatment Clinical Notes Aug, Primary osteoarthritis of right hip (ICD-10 - M16.11) [facility] Other 07-27-2023 Evaluation note* Encounter Date Diagnosis Assessment Notes Treatment Notes Treatment Clinical Notes Aug, Primary osteoarthritis of right hip (ICD-10 - M16.11) [facility] 05-04-2023 Evaluation note* Encounter Date Diagnosis Assessment Notes Treatment Notes Treatment Clinical Notes June, Anxiety (ICD-10 - F41.9) She was trying to wean off the Xanax and was doing well but due to her husbands health she has beenunder a great deal of stress so she has needed to use the Xanax more than she would have liked. Roberta need a refill on the Xanax and is not ready to wean off the medication. I will see her back inthree months. Side effects/risks/benefits of medication were reviewed. An OARRS report [...] current substance abuse treatments are being prescribed. June,Thyroid nodule (ICD-10 - E04.1)We discussed that she should have a thyroid ultrasound repeated in Mar (2023). She is not having any trouble swallowing any longer. June,Other9:25 AM - 9:31 AM [facility] Other 04-20-2023 Evaluation note* Encounter Date Diagnosis Assessment Notes Treatment Notes Treatment Clinical Notes May, Hyperlipidemia (ICD-10 - E78.5) [facility] Other 02-13-2023 Evaluation note* Encounter Date Diagnosis Assessment Notes Treatment Notes Treatment Clinical Notes Mar, Cervical pain (ICD-10 - M54.2) Mar,ysphagia (ICD-10 - R13.10) [facility] Other 02-08-2023 Evaluation note* Encounter Date Diagnosis Assessment Notes Treatment Notes Treatment Clinical Notes Mar, Hyperlipidemia (ICD-10 - E78.5) Discussed cholesterol results with patient today. Total is 186. HDL is 76. LDL is 84. Triglyceridesare 132. VLDL is 26. Her readings are at goal. Continue with above medication daily. Mar,Hyperglycemia (ICD-10 - R73.9)Discussed blood sugar results. Glucose is 89. HgA1C [...] time and is told that this is likelycaused by all the sugar she is eating, this makes her body crave the sugar. Once she takes this outof her diet she may find that she is not as hungry. Mar,rthritis (ICD-10 - M19.90)She does continue with the above medication daily. Mar,ERD (gastroesophageal reflux disease) (ICD-10 - K21.9)She is taking the Nexium daily. Mar,Vitamin D deficiency (ICD-10 - E55.9)Her Vitamin D level was 41.1. Continue with above medication. Mar,nemia (ICD-10 - D64.9)Her Iron is 82. Ferritin is 31.5. I would like her to increase her Iron to five days a week. Mar,Hip pain (ICD-10 - M25.559)She had an injection in her right hip [...] is provided. She does take Celebrex daily. Mar,ulmonary nodules (ICD-10 - R91.8)We discussed that she had a CT scan of the chest done 01/11/22 which showed stable tiny nodular densities. No new lung nodules. No new findings. This was compared to 10/28/2018. I did recommend that she take deep breaths as often as she can to prevent atelectasis. Mar,hest pain (ICD-10 - R07.9)She voices that while sitting in her chair [...] should go to the ER for evaluation. Mar,nxiety (ICD-10 - F41.9)An OARRS report was reviewed no discrepancies noted. [...] medication because of two stressors she has. Mar,ervical pain (ICD-10 - M54.2)I will provide her with an order to have an xray done of her neck to rule out spur or abnormalitiesthat would impede her swallowing. Mar,Long term use of drug (ICD-10 - Z79.899) Mar,Hypertension (ICD-10 - I10) Mar,Foot pain, right (ICD-10 - M79.671)She voices that since she broke her foot she has had trouble with her foot, knee and hip. She used a scooter to get around and this hurt her right knee which now bothers her as well. She would like to attend PT. I will provide her with an order. Mar,Vitamin B12 deficiency (ICD-10 - E53.8)Her B12 is 540. Folate is 13.6. She is to continue with her B12 as directed. Mar,Headache (ICD-10 - R51.9)She was asked to avoid Excedrin because it can cause rebound headaches. She voices that Tylenol does the same thing. We discussed that her neck could be contributing to her headaches. Mar,ysphagia (ICD-10 - R13.10)She voices that sometimes she feels like things get stuck in her throat or the back of her throat. She is taking the Nexium daily. I would like to order an Upper GI to rule out abnormalities or have her see a physical medicine teacher to discuss an EGD. Right now she would like to wait and keep track of what is getting stuck and how often it happens. She has to cough or massage the neck to get things togo down. She is not sure if it is positional. I did recommend she have the EGD. She is going to wait. She will let me know if she wants an EGD. Her TSH was normal at 1.25. Mar,OtherWhite blood cells were noted in the urine which can be normal for some women but her urine was not infected. She had calcium oxalate crystals in her urine and she has a history of kidney stones. I did recommend that she research a calcium oxalate diet and avoid foods that are high in this to lower h er risk of forming a kidney stone.She would like to take Tumeric but was asked to check with her trusted pharmacist as to whether or not there is an interaction with her other medications. [facility] Other 01-19-2023 Evaluation note* Encounter Date Diagnosis Assessment Notes Treatment Notes Treatment Clinical Notes Feb, Anxiety (ICD-10 - F41.9) [facility] 01-11-2023 Evaluation note* Encounter Date Diagnosis Assessment Notes Treatment Notes Treatment Clinical Notes Feb, Right hip pain (ICD-10 - M25.551 ) Feb,rimary osteoarthritis of right hip (ICD-10 - M16.11) Feb,Other1. We had a long discussion with the patient today concerning their right hip osteoarthritis. The radiographs do show osteoarthritis of the hip. At this time the patient would like to avoid surgical intervention. We did discuss the risk and benefits of surgical versus nonoperative management. The pa saundra would like to proceed with nonoperative management. We discussed that our options include injections, physical therapy, and the consistent use of anti- inflammatories. All 3 of these options, including their risks and benefits, were discussed at length with the patient. 2. Tylenol: Discussed taking Tylenol (acetaminophen). Recommended adjusting their dosing to 1000mg by mouth up to 3 times a day. 3. NSAIDs: Recommended continuing her Celebrex and even increasing it to daily instead of 3 times aweek. 4. Physical therapy: Discussed formal physical therapy and home regimen. Patient preferred to continue her home exercises. 5. Injections: Discussed injections as a treatment option. After consent was obtained, the skin wasprepped with betadine and alcohol. Ultrasound was utilized to identify the right hip joint. Using sterile technique, 3cc of kenalog and 7cc of bupivicaine was injected into the right hip joint. Patient tolerated the injection well. Images are stored elsewhere. 6. Follow up as needed [facility] Other 01-03-2023 Evaluation note* Encounter Date Diagnosis Assessment Notes Treatment Notes Treatment Clinical Notes Feb, Obstructive sleep apnea (ICD-10 - G47.33) Fortunately, the patient is using and benefiting from treatment. Download was reviewed with patient, Current pressure is controlling apnea well, And we will make no changes at this time. I did send an order for a mask fitting with recommendations to try [employer] Gel Pillows Cushion per patient request. A prescription was sent to the [employer] for new supplies throughout the year.She was encouraged to continue to use her machine nightly, throughout the entire night and for napsas this does provide clinical benefit. She will follow-up in the sleep clinic in 1 year or sooner if problems. Feb,Hypertension (ICD-10 - I10)Positive effects of controlled DENYS and hypertension were reviewed. Control of sleep apnea will frequently have a positive effect on blood pressure control, and may additionally reduce blood pressure lability. Feb,OtherCall if any questions or problems. Patient is advised to work on healthy diet choices and appropriate servings, weight control, regular exercise as directed, and reduce fat intake. Use machine regularly, and keep up with mask changes as needed. Call if problems with mask toleration, increased sleepiness, or poor response to treatment. . [facility] Other 11-29-2022 Evaluation note* Encounter Date Diagnosis Assessment Notes Treatment Notes Treatment Clinical Notes Dec, Anxiety (ICD-10 - F41.9) [facility] 11-16-2022 Evaluation note* Encounter Date Diagnosis Assessment Notes Treatment Notes Treatment Clinical Notes Dec, Pulmonary nodules (ICD-10 - R91. 8) [facility] 11-08-2022 Evaluation note* Encounter Date Diagnosis Assessment Notes Treatment Notes Treatment Clinical Notes Dec, GERD (gastroesophageal reflux di sease) (ICD-10 - K21.9) She was provided with a refill on the medication. She would like to be able to take the medication every day or every other day. I will write for every day. Dec,nxiety (ICD-10 - F41.9)An OARRS report was reviewed no discrepancies noted. Frequent appointments needed due to addiction potential of medication. She does continue to use and benefit from the medication. Side effects/risks/benefits of medication were reviewed. I will see her back in three months. Dec,ulmonary nodules (ICD-10 - R91.8)She would like to have a CT scan of the chest repeated due to pulmonary nodules that were seen in the past. I will order this and she can call for the results. Dec,ther9:24 AM - 9:33 AM She is recovering [...] go out yesterday and wore disposable gloves trevor mask. [facility] 10-12-2022 Evaluation note* Encounter Date Diagnosis Assessment Notes Treatment Notes Treatment Clinical Notes Nov, Anxiety (ICD-10 - F41.9) [facility] 08-29-2022 Evaluation note* Encounter Date Diagnosis Assessment Notes Treatment Notes Treatment Clinical Notes Sep, Anxiety (ICD-10 - F41.9) Sep,GERD (gastroesophageal reflux disease) (ICD-10 - K21.9) [facility] 08-26-2022 NotePROCEDURE: XR FOOT RT MIN [...] Electronically authenticated by: PAIGE CLAYTON Date: 2021-10-18 10:16[facility]08-19-2022 Evaluation note* Encounter Date Diagnosis Assessment Notes Treatment Notes Treatment Clinical Notes Sep, Anxiety (ICD-10 - F41.9) [facility] 08-10-2022 Evaluation note* Encounter Date Diagnosis Assessment Notes Treatment Notes Treatment Clinical Notes Sep, Anxiety (ICD-10 - F41.9) [facility] 08-10-2022 Evaluation note* Encounter Date Diagnosis [...] For now we will continue to monitor. Sep,Hypertension (ICD-10 - I10)Blood pressure is controlled. Continue with above medication daily. Sep,nxiety (ICD-10 - F41.9)An OARRS report was reviewed no discrepancies noted. She does continue to use and benefit from the Xanax. Frequent appointments needed due to addiction potential of medication. I will see her back inthree months. Side effects/risks/benefits of medication were reviewed. Sep,Vitamin D deficiency (ICD-10 - E55.9)Her Vitamin D level is 41.0. Continue with the Vitamin D supplement. Sep,Hyperlipidemia (ICD-10 - E78.5)Discussed cholesterol results with patient today. Total is 158. HDL is 55. LDL is 64. Triglyceridesare 196. I would like her to continue to monitor her intake of carbs and sugars. For now will continue to monitor due to her not being able to be active. Sep,nemia (ICD-10 - D64.9)Her Iron is 98. Ferritin is 101.7. HGB is 13.5. I would like her to decrease her Iron to every other day. Sep,Vitamin B12 deficiency (ICD-10 - E53.8)Her B12 is 648. Folate is 17.1. I would like her to continue with the B12 daily. Sep,GERD (gastroesophageal reflux disease) (ICD-10 - K21.9)Continue with above medication as directed Sep,rthritis (ICD-10 - M19.90)Continue with above medication as directed. Sep,Weight loss (ICD-10 - R63.4) Sep,ther care home (current) drug therapy (ICD-10 - Z79.899) Sep,Fracture (ICD-10 - T14.8XXA)right Swenson broke her right foot on 08-08-21 and [...] is following with Maeve PEGUERO at ortho. Sep,ther8:25 AM - 8:40 AM We discussed that her urinalysis indicates she needs more water. She has a history of kidney stones. She was following a calcium oxalate diet but then stopped. I did recommend that she begin avoidingfoods that could calcium oxalate to build up and cause a stone. She admits she has had some back pain but thought it was caused by the way she was walking due to her broken foot. She will continue tomonitor. [facility] [id number] NotePROCEDURE: XR FOOT RT MIN 3 VIEWS HISTORY: Pain in right foot ; follow-up second metatarsal fracture COMPARISON: None. FINDINGS: BONES:Nondisplaced transverse fracture through proximal second metatarsal diaphysis with slight increased density compared prior study. SOFT TISSUES:No visible soft tissue swelling. EFFUSION:None visible. OTHER: Negative. IMPRESSION: 1. Nondisplaced second metatarsal fracture with early bone healing. Electronically authenticated by: PAIGE CLAYTON Date: 2021-09-20 08:[address] [place], [place] 6443107-08-2022 NotePROCEDURE: XR FOOT RT MIN 3 VIEWS [...] Electronically authenticated by: PAIGE CLAYTON Date: 2021-08-30 09:32[facility]06-20-2022 Evaluation note* Encounter Date Diagnosis Assessment Notes Treatment Notes Treatment Clinical Notes Jul, Anxiety (ICD-10 - F41.9) Jul,Essential hypertension (ICD-10 - I10) [facility] 06-16-2022 NotePROCEDURE: XR FOOT RT MIN [...] Electronically authenticated by: PAIGE CLAYTON Date: 2021-08-08 17:31[facility]06-16-2022 Evaluation note* Encounter Date Diagnosis Assessment Notes Treatment Notes Treatment Clinical Notes Jul, Foot pain, right (ICD-10 - M79.6 71) [facility] 05-04-2022 Evaluation note* Encounter Date Diagnosis [...] can call for refills if needed. Side effects/risks/benefits of medication were reviewed. June,leep apnea (ICD-10 - G47.30)She is following with Tanan Wilson for DENYS. She still has headaches but not as often but admits she feels more rested with her CPAP machine. June,Vitamin D deficiency (ICD-10 - E55.9)We discussed that it is difficult to overdo Vitamin D so she can continue with this daily. Her Vitamin D level in February was still not where we would like to see it so she is not in any danger of this going too high. Her level will be checked again in August with her next lab draw. June,steopenia (ICD-10 - M85.80)Her last DEXA scan was about a year and a half ago. Most of her areas were normal, she had two areas that were in the osteopenia area. Once it has been two years (after 2022) we can order a repeat DEXA to be done. June,Essential hypertension (ICD-10 - I10)She voices that her [facility] nurse contacts her monthly and suggested she check her blood pressure three times a week, she has been doing this and has been getting good readings. Her reading today was 111/70. She will continue to monitor. June,ther8:58 AM - 9:08 AM I did advise her that her Vitamin C does help her to absorb the Iron that she takes so she should continue with this. She voiced understanding. [facility] 04-26-2022 Evaluation note* Encounter Date Diagnosis Assessment Notes Treatment Notes Treatment Clinical Notes May, Anxiety (ICD-10 - F41.9) [facility] 03-15-2022 Evaluation note* Encounter Date Diagnosis Assessment Notes Treatment Notes Treatment Clinical Notes Apr, Obstructive sleep apnea (ICD-10 - G47.33) Fortunately, the patient is using and benefiting from treatment. Download was reviewed with patient, Current pressure is controlling apnea well, And we will make no changes at this time. A prescription was sent to the [employer] for new supplies throughout the year. She was encouraged to continue to use her machine nightly, throughout the entire night and for naps as this does provide clinical benefit. She will follow-up in the sleep clinic in 1 year or sooner if problems. Apr,therCall if any questions or problems. Patient is advised to work on healthy diet choices and appropriate servings, weight control, regular exercise as directed, and reduce fat intake. Use machine regularly, and keep up with mask changes as needed. Call if problems with mask toleration, increased sleepiness, or poor response to treatment. . [facility] 03-02-2022 Evaluation note* Encounter Date Diagnosis Assessment Notes Treatment Notes Treatment Clinical Notes Apr, Osteopenia (ICD-10 - M85.80) [facility] 02-25-2022 Evaluation note* Encounter Date Diagnosis Assessment Notes Treatment Notes Treatment Clinical Notes Mar, Trigger finger, right ring finge r (ICD-10 - M65.341) Right ring trigger finger injected with cortisone under sterile technique, patient tolerated well Mar,ight hand pain (ICD-10 - M79.641) [facility] 01-28-2022 Evaluation note* Encounter Date Diagnosis Assessment Notes Treatment Notes Treatment Clinical Notes Feb, Hyperlipidemia (ICD-10 - E78.5) Discussed cholesterol results with patient today. Total is 142. HDL is 54. LDL is 61. Triglyceridesare 133. Readings are at goal. Continue to exercise, watch intake of carbs and sugars. Stay active. Feb,Fatty liver (ICD-10 - K76.0) We discussed fatty liver today, I explained to her that there is a new test FibroSure scan that canbe done to evaluate fatty liver further. If she would like to have this test done she can see Dr. Mckinnon for evaluation. She is doing all the right things, she exercises and eats right. Right now she declines and will continue with what she is doing. Feb,nemia (ICD-10 - D64.9) Discussed blood work results with her today. Her HGB is 13.8. Iron is 99. Ferritin is 89. She is encouraged to continue with the Iron supplement as directed. Feb,Hyperglycemia (ICD-10 - R73.9) Discussed blood sugar results with patient today. Glucose is 112. HgA1C is down from 5.7 to 5.3 which is excellent. She is encouraged to continue with what she is doing as it is working well. Feb,Hypertension (ICD-10 - I10) Blood pressure is controlled. Continue with above medications daily as directed. Feb,Vitamin D deficiency (ICD-10 - E55.9) Her Vitamin D level is 39.8. Continue with the Vitamin D supplement daily. Feb,nxiety (ICD-10 - F41.9) An OARRS report was reviewed no discrepancies noted. She does continue to use and benefit from the Xanax. Frequent appointments needed due to addiction potential of medication. Side effects/risks/benefits of medication were reviewed. I will see her back in three months. Feb,rthritis (ICD-10 - M19.90) Continue with above medication as directed. Feb,ight hip pain (ICD-10 - M25.551) She voices [...] help her. She also does strength training. Feb,Vitamin B12 deficiency (ICD-10 - E53.8) Her B12 level is 684. Folate is 19.0. Continue with B12 supplement daily as directed. Feb,steopenia (ICD-10 - M85.80) Continue with above medication daily as directed. Her last DEXA scan was in 2019. Feb,Long term use of drug (ICD-10 - Z79.899) Feb,Weight loss (ICD-10 - R63.4) She has lost weight since last seen. Her TSH is normal at 2.84. Feb,GERD (gastroesophageal reflux disease) (ICD-10 - K21.9) Continue with above medication as directed. Will continue to monitor. Feb,Nocturia (ICD-10 - R35.1) Feb,therSince last seen she went back on all her medication except her multivitamin. She voices that when she took the multivitamin it caused her urine to be very bright in color which made it difficult for her to tell if she was staying well hydrated. [facility] 10-26-2021 Evaluation note* Encounter Date Diagnosis Assessment Notes Treatment Notes Treatment Clinical Notes Nov, Anemia (ICD-10 - D64.9) Her HGB is 13.5. Iron is 76. Ferritin is 37.1. She has not been taking her Iron. I did recommend that she restart her Iron supplement once a day. Will repeat lab in three months. Nov,Vitamin B12 deficiency (ICD-10 - E53.8) Her Vitamin B12 level is 442. Folate is 15.8. She is not taking any B12 vitamins right now, voices that she was trying to see how her levels were without any medication. I did recommend that she return to taking her B12 vitamin five days a week. Nov,bdominal pain (ICD-10 - R10.9) We discussed the [...] going to go ahead and get the x- ray done. She has never had any issue with her gallbladder. I will provide her with an order for a gallbladder ultrasound. If the KUB x-ray does not show a stone or backed up stool then she should have theultrasound done. She has regular bowel movements, 2-3 times in the morning. Even when she had the di scomfort she was still having regular bowel movements. She describes it as a gas pocket. The pain was constantly there for two to three weeks. Last week she thinks she passed a kidney stone, states that she was pain free from last until today she noticed some discomfort again. Nov,nxiety (ICD-10 - F41.9) An OARRS report was reviewed, no discrepancies noted. She does continue to use and benefit from theXanax as needed. I will need to see her back in three months. Side effects/risks/benefits of medication were reviewed. Nov,enal calculi (ICD-10 - N20.0) She voices that [...] pain free until today she woke with somediscomfort. She provided a urine sample today. She will be seeing Dr. Dickerson soon. She has a KUB x-ray to be done prior to his appointment which is either 12-24 or 01-24-21. Nov,Hematuria (ICD-10 - R31.9) We discussed that her urinalysis she provided today was normal. Will send it for further evaluation, she can call later this week for the final culture results. Nov,Weight loss (ICD-10 - R63.4) She continues to lose weight. She is swimming twice a week and working out in her home gym. She is to continue with what she is doing as it is working well. Nov,rimary osteoarthritis of right hip (ICD-10 - M16.11) She has been doing strength training, rides her bike and is doing planks. It hurts her to sit because it causes her right hip to stiffen up. She saw Dr. Javed in the past for her hip and is considering returning to see him. I did recommend that she avoid doing planks. [facility] Evaluation + Plan note Future Appointments Appointment Date:01/12/2024 08:30:00 AM Scheduled Provider:MARIANA DUONG PA-C Location:[facility] Appointment Type:URO Office Visit [facility] evaluation + Plan note Future Appointments Appointment Date:01/12/2024 08:40:00 AM Scheduled Provider:MARIANA DUONG PA-C Location:[facility] Appointment Type:URO Office Visit [facility] evaluation + Plan note Future Appointments Appointment Date:01/17/2025 08:20:00 AM Scheduled Provider:MARIANA DUONG PA-C Location:[facility] Appointment Type:URO Office Visit [facility] Shireen evaluation noteNo InformationNort [employer] Other Evaluation noteNort [employer] Other Evaluation noteNo assessment information available [facility] Work Phone: evaluation note* Diagnosis Onset Date Resolution Status Bicipital tendinitis, right shoulder acuteRotator cuff syndrome of right shoulderacute [facility] Work Phone: evaluation note* Diagnosis Onset Date Resolution Status Anemia acuteAnxietyacuteHTN (hypertension)acuteHyperglycemiaacuteHyperlipidemiaacute Pulmonary noduleacuteSleep apnea treated with continuous positive airway pressure (CPAP)acuteVitamin B12 deficiencyacuteVitamin D deficiencyacute [facility] Work Phone: evaluation note* Diagnosis Left Achilles tendinitis- Primary Contracture of left ankle Pain due to onychomycosis of toenails of both feet [facility] Diagnosis Left Achilles tendinitis- Primary Contracture of left ankle [facility]* Diagnosis OAB (overactive bladder)- Primary Other screening mammogram [facility] Diagnosis Left Achilles tendinitis- Primary Contracture of left ankle [facility] Diagnosis Left Achilles tendinitis- Primary Contracture of left ankle Pain due to onychomycosis of toenails of both feet [facility] Diagnosis Left Achilles tendinitis [facility]* Diagnosis Left Achilles tendinitis- Primary Contracture of left ankle [facility]* Diagnosis Seborrheic keratosis Lentigines Actinic keratosis Melanocytic nevus of trunk Benign neoplasm of skin of trunk, except scrotum Other rosacea Other seborrheic dermatitis documented [facility]* Diagnosis Onset Date Resolution Status Admit Date Acute cough acuteMay 2024 2:30pmAllergic rhinitisacuteMay 2024 2:30pmAnxiety acuteMay 2024 2:30pm [facility] Work Phone: Evaluation note* Diagnosis Left Achilles tendinitis- Primary Pain due to onychomycosis of toenails of both feet Contracture of left ankle documented in this encounter [facility]* Diagnosis Onset Date Resolution Status Admit Date Anemia acuteAugust 2024 11:04amAnxietyacuteAugust 2024 11:04amHTN (hypertension)acuteAugust 2024 11:04amHyperglycemiaacuteAugust 2024 11:04amHyperlipidemiaacuteAugust 2024 11:04amOther specified disorders of bone density and structure, right ankle and footacuteAugust 2024 11:04am Pulmonary noduleacuteAugust 2024 11:04amVitamin B12 deficiencyacuteAugust 2024 11:04amVitamin D deficiencyacuteAugust 2024 11:04am [facility] Work Phone: Evaluation note* Diagnosis Left Achilles tendinitis- Primary Pain due to onychomycosis of toenails of both feet Contracture of left ankle documented in this encounter [facility] HealthcareHistory general Narrative - Reported* Type Description Date Medical History Hypertension Medical HistoryEsophageal refluxMedical Historybladder troubleMedical History generalized anxiety (takes med twice per month)Surgical HistoryRight Breast Biopsy (benign)urgical HistoryTubal [id number] History cystocopy; Dr. [id number] Historycolonoscopy - Dr Casiano09/[address] Polanco - Mkjgavfflhpjb21/16/17 Hospitalization HistoryVaginal Birth77 & 80 [facility] Other History general Narrative - ReportedNort MashMe.TV Other Hisrbad general Narrative - Reported* Type Description Date Medical History Hypertension Medical HistoryEsophageal refluxMedical Historybladder troubleMedical History generalized anxiety (takes med twice per month)Surgical HistoryRight Breast Biopsy (benign)sSurgical HistoryTubal [id number] History cystocopy; Dr. [id number] Historycolonoscopy - Dr Casiano / Normal needs repeat in Surgical Historyeye lid surgery Dr Collin Greene01/08/17Hospitalization HistoryVaginal Birth78 & [facility] Other Hisdniv general Narrative - Reported* Type Description Date Medical History Hypertension Medical HistoryEsophageal refluxMedical Historybladder troubleMedical History generalized anxiety (takes med twice per month)Medical HistorySleep apnea Surgical HistoryRight Breast Biopsy (benign)sSurgical HistoryTubal Ligation 1978Surgical Historycystocopy; Dr. [id number] Historycolonoscopy - Dr Casiano / Normal needs repeat in Surgical Historyeye lid surgery Dr Collin Greene01/08/17Hospitalization HistoryVaginal Birth78 & [facility] Other Hissaiu general Narrative - Reported* Type Description Date Medical History Hypertension Medical HistoryEsophageal refluxMedical Historybladder troubleMedical History generalized anxiety (takes med twice per month)Medical HistorySleep apnea Surgical HistoryRight Breast Biopsy (benign)sSurgical HistoryTubal Ligation 1978Surgical Historycystocopy; Dr. [id number] Historycolonoscopy - Dr Casiano / Normal needs repeat in Surgical Historyeye lid surgery Dr Collin Greene01/08/17Surgical HistoryRTHA11/04/22Hospitalization HistoryVaginal Birth77 & 80 [facility] Other History of Present illness Narrative* Juan Yates DPM - 10/20/2024 4:10 PM EDT Patient: Teagan Gonsales : 1955 PCP: Roma Pritchard MD SUBJECTIVE Patient presents today for follow up of left Achilles tendinitis. She has tried different shoes andheel lifts as well as ice and PT Patient rates pain a 2 /10. Patient has been taking anti-inflammatories and physical therapy at [facility] with negative improvement in the past With prior discussion of possible TENEX procedure. Patient presents today with a CC of elongated, thick nails. Pt states nails have been elongated and thick for many years and cause pain with ambulation in shoegear. Pt has tried previous treatment with minimal relief. Pt presents today for nail care and treatment. Allergies: No Known Allergies Past Medical History: Past Medical History: Diagnosis Date Fibrocystic breast Hyperlipidemia Hypertension Medications: Current Outpatient Medications: ALPRAZolam (Xanax) 0.5 MG tablet, Take 0.5 mg by mouth in the morning and 0.5 mg before bedtime., Disp: , Rfl: ascorbic acid (Vitamin C) 500 MG tablet, Take 500 mg by mouth., Disp: , Rfl: atorvastatin (Lipitor) 20 MG tablet, Take 20 mg by mouth in the morning., Disp: , Rfl: azelaic acid (Finacea) 15 % gel, Apply (1g) thin layer to the face, once daily, 30 day supply, Disp: 50 g, Rfl: 11 Calcium Carbonate-Vitamin D 600-3.125 MG-MCG tablet, Take 1 tablet by mouth., Disp: , Rfl: cholecalciferol (Vitamin D-3) 50 MCG (1999 UT) capsule, Take 1 capsule by mouth [...] at the same time., Disp: , Rfl: hydrocortisone 2.5 % cream, Apply (1g) thin layer to affected areas bid prn for flares, Disp: 60 g,Rfl: 11 losartan (Cozaar) 100 MG tablet, TAKE 1 TABLET BY MOUTH EVERY DAY for 90 days, Disp: , Rfl: meloxicam (Mobic) 15 MG tablet, Take 15 mg by mouth Daily, Disp: , Rfl: Methylcobalamin 1 MG chewable tablet, .COMPLEX, Disp: , Rfl: methylPREDNISolone (Medrol Dospak) 4 MG tablets, Follow schedule on MEDROL PACK package instructions to be used as directed, Disp: 21 tablet, Rfl: 0 Social History: Social History Socioeconomic History Marital [...] date: 03/16/1969 Quit date: 10/14/2016 Years since quittin.9 Passive exposure: Past Smokeless tobacco: Never Vaping [...] Physical Activity: Sufficiently Active (02/11/2023) [facility] Vital Sign Days of Exercise per [...] feet ORTHO: Positive pain on palpation to toenails of the left 1,2,3,4,5 toes and right 1,2,3,4,5 toes minimal pain on palpation to the left posterior calcaneus near the Achilles tendon insertion with negative palpable [place] Contracture of ankle at tibiotalar joint to bilateral lower extremities ASSESSMENT 1. Pain due to onychomycosis of toenails of both feet 2. Left Achilles tendinitis 3. Contracture of left ankle PLAN Patient to continue with oral anti - inflammatories as needed for pain and recommended OTC medications such as tylenol or Ibuprofen Patient is to continue with stretching excercizes daily with patient to continue with night stretching splint or manual stretching. Recommended to apply ice to affected areas for 20 minutes, twice daily. Ice should not be applied directly to skin. Discussed proper foot care with patient today. Debride nails in length and thickness digits 1 through 10 Juan [facility]ates DPM [facility] Narrative No data available for this section [facility] progress note No data available for this section [facility] reason for referral (narrative)No reason for referral information availableMercer County Community Hospital Work Phone: Reason for visit NarrativereViOptix lab, discuss multiple issues see treatment plan for further informationFlirtatious Labs Other Reason for visit Narrativereview labs/med refill, discuss multiple issues, see treatment plan for further information[facility] Other Summary Purpose Family History No Family History Records Found Relationship Condition Age at Onset Recorded Date/T casi Not Specified Malignant neoplasm of ovary Unknown fatherMyocardial infarctionUnknownDiabetes mellitusUnknown Relationship Condition Age at Onset Recorded Date/T casi Not Specified Malignant neoplasm of ovary Unknown fatherDiabetes mellitusUnknownMyocardial infarctionUnknownbrotherHistory of coronary artery stent placementUnknownbrotherMalignant neoplasmUnknown Relationship Condition Age at Onset Recorded Date/T casi Not Specified Malignant neoplasm of ovary Unknown fatherDiabetes mellitusUnknownMyocardial infarctionUnknownbrotherHistory of coronary artery stent placementUnknownbrotherMalignant neoplasmUnknownfather DeceasedUnknownHeart diseaseUnknownDiabetes mellitusUnknowngrandparentDeceased UnknownNot SpecifiedHistory of ovarian cancerUnknownDeceasedUnknownMalignant neoplasmUnknown Relationship Condition Age at Onset Recorded Date/T casi mother Malignant neoplasm of ovary Unknown fatherDiabetes mellitusUnknownMyocardial infarctionUnknownbrotherHistory of coronary artery stent placementUnknownbrotherMalignant neoplasmUnknownfather DeceasedUnknownHeart diseaseUnknownDiabetes mellitusUnknowngrandparentDeceased UnknownmotherHistory of ovarian cancerUnknownDeceasedUnknownMalignant neoplasm Unknown Advance Directives No Advanced Directives [...] M25.511 Annual g47.33 e78.5 6-8 WK RECHECK m85.871Reason for VisitBicipital tendinitis, right shoulder Rotator cuff syndrome of right shoulder Chief Complaint e78.5 6-8 WK RECHECK m85.871 n20.0Reason for VisitBicipital tendinitis, right shoulder Rotator cuff syndrome of right shoulder Chief Complaint med refill R73.9;D64.9;E78.5;E55.9;E53.8;Z79.899Reason for VisitAnxiety Diaphoresis HTN (hypertension) Osteopenia Pulmonary nodule Chief Complaint R73.9;D64.9;E78.5;E5 5.9;E53.8;Z79.899 review labs/med refillReason for VisitAnemia Anxiety HTN (hypertension) Hyperglycemia Hyperlipidemia Pulmonary nodule Sleep apnea treated with continuous positive airway pressure (CPAP) Vitamin B12 deficiency Vitamin D deficiency Chief Complaint R73.9;D64.9;E78.5;E5 5.9;E53.8;Z79.899 review labs/med refill R91.1Reason for VisitAnemia Anxiety HTN (hypertension) Hyperglycemia Hyperlipidemia Pulmonary nodule Sleep apnea treated with continuous positive airway pressure (CPAP) Vitamin B12 deficiency Vitamin D deficiency Chief Complaint R73.9;D64.9;E78.5;E5 5.9;E53.8;Z79.899 review labs/med refill R91.1 flu shotReason for VisitAnemia Anxiety HTN (hypertension) Hyperglycemia Hyperlipidemia Pulmonary nodule Sleep apnea treated with continuous positive airway pressure (CPAP) Vitamin B12 deficiency Vitamin D deficiency Chief Complaint R73.9;D64.9;E78.5;E5 5.9;E53.8;Z79.899 review labs/med refill R91.1 flu shotReason for VisitAnemia Anxiety HTN (hypertension) Hyperglycemia Hyperlipidemia Pulmonary nodule Sleep apnea treated with continuous positive airway pressure (CPAP) Vitamin B12 deficiency Vitamin D deficiency Flu vaccine need Chief Complaint Admit Date R91.1 October 22, 2023 3: 11pm flu shot November 16, 2023 9:20am Amb Documentation November 16, 2023 2:52pm med refill January 14, 2024 10:14am Reason for Visit Admit Date Flu vaccine need November 16, 2023 9:20am Chief Complaint Admit Date med refill January 14, 2024 10:14am Z12.31 January 22, 2024 8:00am DENYS/Annual March 07, 2024 1 1:16am Reason for Visit Admit Date Anxiety January 14, 2024 10:14am Left Achilles tendinitis January 14, 2024 10:14am Chief Complaint Admit Date med refill January 14, 2024 10:14am Z12.31 January 22, 2024 8:00am DENYS/Annual March 07, 2024 1 1:16am OA March 21, 2024 7 :06am Reason for Visit Admit Date Anxiety January 14, 2024 10:14am Left Achilles tendinitis January 14, 2024 10:14am HTN (hypertension) March 07, 2024 1 1:16am Sleep apnea treated with con tinuous positive airway pressure (CPAP) March 07, 2024 11:16am Chief Complaint Admit Date med refill January 14, 2024 10:14am Z12.31 January 22, 2024 8:00am DENYS/Annual March 07, 2024 1 1:16am OA March 21, 2024 7 :06am review labs/med refill April 05 9:06am Reason for Visit Admit Date Anxiety January 14, 2024 10:14am Left Achilles tendinitis January 14, 2024 10:14am HTN (hypertension) March 07, 2024 1 1:16am Sleep apnea treated with con tinuous positive airway pressure (CPAP) March 07, 2024 11:16am Anemia April 05, 2024 9:06am Anxiety April 05, 2024 9:06am HTN (hypertension) April 05, 2024 9:06am Hyperglycemia April 05, 2024 9:06am Hyperlipidemia April 05, 2024 9:06am Osteoarthritis April 05, 2024 9:06am Pulmonary nodule April 05, 2024 9:06am Vitamin B12 deficiency April 05 9:06am Vitamin D deficiency April 05, 2024 9:06am Chief Complaint Admit Date med refill July 06, 2024 2:30p m Reason for Visit Admit Date Acute cough July 06, 2024 2:30p m Allergic rhinitis July 06, 2024 2:30p m Anxiety July 06, 2024 2:30p m Chief Complaint Admit Date OA MEDS October 04, 2024 6: 54am Chief Complaint Admit Date OA MEDS October 04, 2024 6: 54am review labs October 17, 2024 11 :04am Reason for Visit Admit Date Anemia October 17, 2024 11 :04am Anxiety October 17, 2024 11 :04am HTN (hypertension) October 17, 2024 11 :04am Hyperglycemia October 17, 2024 11 :04am Hyperlipidemia October 17, 2024 11 :04am Other specified disorders of bone density and structure, right ankle and foot October 17, 2024 11:04am Pulmonary nodule October 17, 2024 11 :04am Vitamin B12 deficiency October 17, 2024 11:04am Vitamin D deficiency October 17, 2024 1 1:04am Chief Complaint Admit Date OA MEDS October 04, 2024 6: 54am review labs October 17, 2024 11 :04am r91.1 October 20, 2024 7: 31am Additional Source Comments INFORMATION SOURCE (unrecogn ized section and content) DATE CREATED AUTHOR 08/04/2018 [facility] DATE CREATED AUTHOR AUTHOR'S ORGANIZ ATION 05/05/2020 [facility] DATE CREATED AUTHOR AUTHOR'S ORGANIZ ATION 05/31/2022 [facility] DATE CREATED AUTHOR AUTHOR'S ORGANIZ ATION 10/22/2024 [facility] DATE CREATED AUTHOR AUTHOR'S ORGANIZ ATION 10/22/2024 [facility] DATE CREATED AUTHOR AUTHOR'S ORGANIZ ATION 12/21/2024 [facility] REASON FOR VISIT (unrecogniz ed section and content) ReasonCommentsToenail CareNon DM NailsReasonCommentsAchilles PainLeft achilles painReasonCommentsFollow-up1m achilles/ ptReasonCommentsToenail CareReasonOnset UtlmQkyaiaxvipunyahkuwydu72/02/2025ReasonCommentsSkin CheckReasonCommentsToenail CareNon dm nail careReasonCommentsToenail CareNon dm nial care Care Teams (unrecognized sec tion and content) Team Status: Inactive Member Role Status Dates Roma Pritchard , Primary Care Provider, Attending Pro vider Active Team Status: Active Member Role Status Dates Roma Pritchard , Primary Care Provider Active Team Status: Inactive Member Role Status Dates Roma Pritchard , Primary Care Provider Active Tanna Wilson NPAttending ProviderActive Team Status: Inactive Member Role Status Dates Roma Pritchard , Primary Care Provider Active Orlando Vicente MDAttending ProviderActive Team Status: Inactive Member Role Status Onel Pritchard DO Primary Care Provider Active Ar Herman II MDAttending ProviderActive Team Status: Inactive Member Role Status Onel Pritchard DO Primary Care Provider Active Referral SelfAttending ProviderActive Team Status: Inactive Member Role Status Onel Pritchard DO Primary Care Provider Active Colby Shaffer DOAttending ProviderActive Team Status: Inactive Member Role Status Dates [...] tart: January 19, 2023 End: January 19, 2023Referral SelfAttending ProviderActiveStart: January 19, 2023 End: January 19, 2023 Team Status: Inactive Member Role Status Dates Provider Conversion Attending Provider Active St art: March 03, 2023 End: March 03, 2023 Team Status: Inactive Member Role Status Onel Pritchard DO Primary Care Provider Active S tart: March 03, 2023 End: March 03, 2023Colby Shaffer , DOAttending ProviderActiveStart: March 03, 2023 End: March 03, 2023 Team Status: Inactive Member Role Status Dates Tanna Wilson , WHEELMAN Attending Provider Active Start: March 09, 2023 End: March 09, 2023 Team Status: Inactive Member Role Status Onel Pritchard DO Primary Care Provider Active S tart: March 09, 2023 End: March 09louann Wilson NPAttending ProviderActiveStart: March 09, 2023 End: March 09, 2023 Team Status: Inactive Member Role Status Onel Pritchard DO Primary Care Provide r, Attending Provider Active Start: March 25, 2023 End: March 25, 2023 Team Status: Inactive Member Role Status Onel Pritchard DO Primary Care Provider Active S tart: April 27, 2023 End: April 27, 2023Colby Shaffer DOAttending ProviderActiveStart: April 27, 2023 End: April 27, 2023 Team Status: Inactive Member Role Status Onel Pritchard DO Primary Care Provide r, Attending Provider Active Start: May 27, 2023 End: May 27, 2023 Team Status: Inactive Member Role Status Onel Pritchard DO Primary Care Provider Active S tart: June 11, 2023 End: June 11, 2023SUDHIR Wills-CAttending ProviderActiveStart: June 11, 2023 End: June 11, 2023 [...] Team Status: Inactive Member Role Status Onel Prithcard DO Primary Care Provide r, Attending Provider Active Start: October 22, 2023 End: October 22, 2023 Team Status: Inactive Member Role Status Onel Pritchard DO Primary Care Provide r, Attending Provider Active Start: November 16, 2023 End: November 16, 2023Team MemberRelationshipSpecialtyStart DateEnd Roma Rodriguez MD [address] [place] [address] [facility] Ncvxhcto12/[facility]/23Team MemberRelationshipSpecialtyStart DateEnd Date Roma Pritchard MD [address] [place] [address] PCP - [facility] Ghxxwror86/9/23Team MemberRelationshipSpecialtyStart DateEnd Date Roma Pritchard MD [address] [place] [address] PCP - [facility]01/01/23Team MemberRelationshipSpecialtyStart DateEnd Date Roma Pritchard MD [address] [place] [address] PCP - [facility]01/01/23 Team Status: Active Member Role Status Dates Roma Pritchard DO Primary Care Provider Active S tart: November 16, 2023 Zander Momin ProviderActiveStart: November 16, 2023 Team Status: Inactive Member Role Status Dates Roma Pritchard DO Primary Care Provide r, Attending Provider Active Start: January 14, 2024 End: January 14, 2024Team MemberRelationshipSpecialtyStart DateEnd Date Roma Pritchard MD [address] [place] [address] PCP - [facility] Johmiqjg28/9/23Team MemberRelationshipSpecialtyStart DateEnd Date Roma Pritchard MD [address] [place] [address] PCP - [facility] Dzjlhqbo00/9/23Team MemberRelationshipSpecialtyStart DateEnd Date Roma Pritchard MD [address] [place] [address] PCP - [facility]01/01/23Team MemberRelationshipSpecialtyStart DateEnd Date Roma Pritchard MD [address] [facility] [address] [facility]01/01/23 Team Status: Inactive Member Role Status Dates Roma Pritchard DO Primary Care Provider Active S tart: January 22, 2024 End: January 21bob Vicente MDAttending ProviderActiveStart: January 22, 2024 End: January 22, 2024 Team Status: Inactive Member Role Status Dates Roma Pritchard DO Primary Care Provider Active S tart: March 07, 2024 End: March 07, 2024Pevandana Wilson NPAttending ProviderActiveStart: March 07, 2024 End: March 07, 2024 Team Status: Inactive Member Role Status Dates Roma Pritchard DO Primary Care Provide r, Attending Provider Active Start: March 21, 2024 End: March 21, 2024 Team Status: Inactive Member Role Status Dates Roma Pritchard DO Primary Care Provide r, Attending Provider Active Start: April 05, 2024 End: April 05, 2024Team MemberRelationshipSpecialtyStart DateEnd Date Roma Pritchard MD [address] [facility] [place] [address] [facility]01/01/23Team MemberRelationshipSpecialtyStart DateEnd Date Roma Pritchard MD [address] [facility] [place] [address] [facility] - [facility]01/01/23 Team Status: Inactive Member Role Status Dates Roma Pritchard DO Primary Care Provide r, Attending Provider Active Start: July 06, 2024 End: July 06, 2024Team MemberRelationshipSpecialtyStart DateEnd Date Roma Pritchard MD [address] [place] [address] PCP - [facility]01/01/23Team MemberRelationshipSpecialtyStart DateEnd Date Roma Pritchard MD [address] [place] [address] [place] [address] PCP - [facility]01/01/23 Team Status: Inactive Member Role Status Onel Pritchard DO Primary Care Provider Active S tart: October 04, 2024 End: October 04, 2024Dacarri Pritchard DOAttending ProviderActiveStart: October 04, 2024 End: October 04, 2024 Team Status: Inactive Member Role Status Onel Pritchard DO Primary Care Provider Active S tart: October 17, 2024 End: October 17, 2024Dacarri Pritchard DOAttending ProviderActiveStart: October 17, 2024 End: October 17, 2024Team MemberRelationshipSpecialtyStart DateEnd Date Roma Pritchard MD [address] [facility] [place] [place] [address] [facility] - [facility]01/01/23Team MemberRelationshipSpecialtyStart DateEnd Date Roma Pritchard MD [address] [place] [address] [place] [address] [facility]01/01/23 Team Status: Inactive Member Role Status Onel Pritchard DO Primary Care Provider Active S tart: October 20, 2024 End: October 20, 2024Dacarri Pritchard DOAttending ProviderActiveStart: October 20, 2024 End: October 20, 2024 Goals (unrecognized section and content) Goals may [...] BE BASED ON THE PRIMARY CLINICAL RECORDS. [facility]. provides no warranty or guarantee of the accuracy or completeness of information in this document.
--- OUTSIDE RECORDS SUMMARY | 2024-12-22 07:00 | XMS_ITS | Patient Health Record ---
Author Organization [facility] in [place] Address [address] [place] [address] Care Team Providers Care Certified [place] Administrator Name Role Phone Cachorro Stevens DO Primary Care Provider Unavailab le Allergies No Known Allergies Reason For Referral No Information Medications Medication SIG (Take, Route, Frequency, Duration) Notes Start Date End Date Status Azelaic Acid 15 % apply thin layer to face once daily External; Duration: 30 Days ActivebuPROPion HCl ER (SR) 100 MGTAKE 1 TABLET BY MOUTH IN THE MORNING Oral; Duration: 30 DaysActivebuPROPion HCl ER (SR) 100 MGOral; Duration: 90 DaysActive Meloxicam 15 MGTAKE 1 TABLET BY MOUTH EVERY DAY FOR 30 DAYS Oral; Duration: 30 DaysActiveALPRAZolam 0.5 MGOral; Duration: 30 DaysActiveFluorouracil 5 %APPLY TOPICALLY TO AREAS ON THE FACE TWICE DAILY DIRECTED FOR 14 DAYS External; Duration: 30 DaysActivehydroCHLOROthiazide 25 MGOral; Duration: 90 DaysActive Losartan Potassium 100 MGOral; Duration: 90 DaysActiveAtorvastatin Calcium 20 MG Oral; Duration: 90 DaysActive Social History Tobacco Use: Social History Observation Description Date Details (start date - stop date) Never Smoker NA - NA Tobacco Control (Standard) Question Answer Notes Tobacco use: Nonsmoker Plan Of Treatment No Information Insurance Providers Payer Name Payer Address Payer Phone Subscriber Number Group Number Insured Name Patient Relationship to Insured Coverage Start Date Coverage End Date [place] [address] [place] [address] [id number] Yany Gonsales - patient is the insuredBCBS OUT OF STATEPO [address] [place] [id number], ChristElizabethboaz - patient is the insured
--- NOTE | 2024-12-22 07:02 | US_ITS ---
[address] [address] Patient Name: RAHUL AGUILERA MRN: [id number] date: 1955 Sex: F Assigned Patient Location: US Current Patient Location: US Accession/Order Number: [id number] Exam Date: 12/22/2024 07:03 Report Date: 12/22/2024 08:34 At the request of: MAXIMO PEGUERO Procedure: US renal BI BILATERAL RENAL AND BLADDER ULTRASOUND CLINICAL HISTORY: Kidney Stone COMPARISON: Ultrasound 05/19/2023 FINDINGS: Estimation of renal size is approximately 11.2 cm on the right and 11.3 cm on the left. No contour deforming mass. No hydronephrosis. Suspected bilateral nonobstructing calculi largest measuring 6 mm within each kidney. The urinary bladder is partially distended with a volume of 165 ml. No shadowing stone or focal lesion. US/US renal BI IMPRESSION: BILATERAL NEPHROLITHIASIS. NO HYDRONEPHROSIS TO SUGGEST OBSTRUCTION. Impression dictated by: Martin Ruano Jr., D.O. 12/22/2024 8:34 AM Dictation Location: [place] [address] Electronically authenticated by: [id number] Y Date: 12/22/2024 08:34
--- NOTE | 2024-12-22 07:45 | XR_ITS ---
The [address] [address] Patient Name: RAHUL AGUILERA MRN: [facility]:[id number] date: 1955 Sex: F Assigned Patient Location: US Current Patient Location: US Accession/Order Number: [id number] Exam Date: 12/22/2024 07:40 Report Date: 12/22/2024 08:33 At the request of: MAXIMO PEGUERO Procedure: XR abdomen 1V KUB: CLINICAL INFORMATION: Kidney stone COMPARISON: KUB 12/25/2023 FINDINGS: No suspicious urinary tract calcifications. No bowel obstruction or free air. Osseous structures demonstrate degenerative change. XR/XR abdomen 1V IMPRESSION: NO URINARY TRACT CALCULI. Impression dictated by: Rei Rutledge Jr.ONkechi 12/22/2024 8:33 AM Dictation Location: [place] [address] Electronically authenticated by: [id number] Y Date: 12/22/2024 08:33
== END 2024-12-22 06:54 | disposition home or self-care (01) ==
PROVIDERS: PCP Family Medicine; Visit Provider Student in an Organized Health Care Education/Training Program
DX: N20.0 Calculus of kidney (principal)
CPT/HCPCS: 74018; 76775